=== PATIENT | female | born 2000 | race Caucasian/White ===

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

== ENCOUNTER 2021-01-10 13:27 | Emergency (ER) | payer BC, SELFPAY ==
[2021-01-10 13:28] VITALS: BP 131/71; PULSE 115; RESP 16; TEMP 36.9; O2SAT 97; BMI 22.8
--- NOTE | 2021-01-10 13:48 | ED.VIS.GI ---
HPI <Dr. Ernie Delgado MD - Last Filed: 01/30/21 00:45> HPI - GI History of Present Illness Chief Complaint: Abd Pain Narrative Narrative: Patient presenting for evaluation secondary to nausea and vomiting. Patient has a underlying history of cyclic vomiting syndrome. She was having significant issues with this about a month ago but currently is in the intensive outpatient program and is only really had one prior exacerbation to this since she started the intensive outpatient program. Patient states that today she was supposed to have around 4 to 5 hours of counseling followed by 7 hours of work and that caused her to feel anxious. She states that it proceeded to cause her significant nausea and vomiting as well as diffuse abdominal pain. Patient denies infectious signs or symptoms associated with this such as fever. Patient states that she had maybe one episode of emesis over the weekend but really has not been having any sort of other signs or symptoms associated with this. She tried taking Zofran at home did not really alleviate her symptoms. Patient apparently was on mirtazapine as well as sertraline, but stopped the mirtazapine about a week ago and the sertraline 2 weeks ago per the recommendations of her counselors and psychiatrists. Review of systems otherwise negative. PFSH <Dr. Ernie Delgado MD - Last Filed: 01/30/21 00:45> [facility] Medical History Generalized anxiety disorder Major depressive disorder, single episode, severe without psychosis Marijuana use Panic disorder Home Medications famotidine 20 mg PO DAILY 11/14/20 [History Last Taken Unknown] ondansetron 4 mg PO Q8H PRN PRN #10 tablet 12/05/20 [Rx Last Taken Unknown] lorazepam [Ativan] 0.5 mg PO BID PRN 14 Days #10 tab 12/14/20 [Rx Last Taken Unknown] promethazine [Phenergan] 25 mg [place] Q4H PRN PRN 12/14/20 [History Last Taken Unknown] ondansetron 4 mg PO Q6H PRN PRN #10 tab 01/10/21 [Rx Last Taken Unknown] Allergy/AdvReac Type Severity Reaction Status Date / Time No Known Allergies Allergy Verified 01/10/21 13:30 Social History Smoking Status: Never smoker ROS <Dr. Ernie Delgado MD - Last Filed: 01/30/21 00:45> ROS ED Constitutional Constitutional ED: Denies chills or fever(s) ENT ENT ED: Denies sore throat Cardiovascular Cardiovascular: Denies chest pain Respiratory/Chest Respiratory/Chest: Denies cough or dyspnea Gastrointestinal Gastrointestinal: Reports abdominal pain, nausea and vomiting; Denies constipation or diarrhea Genitourinary Genitourinary ED: Denies dysuria, hematuria or urinary frequency Musculoskeletal Musculoskeletal: Denies myalgias Integumentary Denies rash Neurologic Neurologic: Denies paresthesias or weakness Psychiatric Psychiatric: Reports anxiety; Denies depression Endocrine Endocrinology: Denies polyuria Hematologic/Lymphatic Hematologic/Lymphatic: Denies easy bleeding or easy bruising Allergic/Immunologic Allergic/Immunologic ED: Denies urticaria EXAM <Dr. Ernie Delgado MD - Last Filed: 01/30/21 00:45> Physical Exam Const Vital Signs: 01/10/21 13:28 01/10/21 15:55 Temperature 98.5 F Temperature Source Temporal Pulse Rate 115 H 74 Respiratory Rate 16 Blood Pressure 131/71 H Blood Pressure Mean 91 Pulse Ox 97 100 Oxygen Delivery Method Room Air Room Air Positive well nourished and well developed Constitutional Narrative: Tearful, vomiting, but otherwise not in physiologic distress General Appearance ED: well developed HEENT Reports moist mucous membranes normocephalic and atraumatic Eyes EOMs intact bilaterally General Eye ED: Negative for pale conjunctiva or scleral icterus Neck no lymphadenopathy and supple Resp normal respiratory effort and clear to auscultation bilaterally Cardio regular rhythm, no murmurs and peripheral pulses 2+ throughout Cardio Narrative: 2+ radial pulses bilaterally symmetric Rate: tachycardic GI non-distended and no masses GI Narrative: Diffuse nonlocalizing tenderness no guarding or rebound noted, no palpable masses Palpation: soft and tender; Negative for guarding, rigid or rebound tenderness present Back/Spine no CVA tenderness Extremity full ROM General Extremety ED: Negative for edema General Extremity: Negative for edema Neuro moves all extremities and no sensory deficits noted Sensorium / Orientation: alert, oriented to person, oriented to place and oriented to time Motor Exam: strength 5/5 throughout Psych Psych Narrative: Not suicidal homicidal or hallucinating, she does report feeling anxious Mood & Affect: tearful Skin Rashes: no rashes <Dr. Fernando Sanchez DO - Last Filed: 01/10/21 16:29> Physical Exam Const Vital Signs: 01/10/21 13:28 01/10/21 15:55 Temperature 98.5 F Temperature Source Temporal Pulse Rate 115 H 74 Respiratory Rate 16 Blood Pressure 131/71 H Blood Pressure Mean 91 Pulse Ox 97 100 Oxygen Delivery Method Room Air Room Air [facility] <Dr. Ernie Delgado MD - Last Filed: 01/30/21 00:45> [facility] Narrative Medical decision making narrative: Patient presented with an exacerbation of her cyclic vomiting syndrome. Patient was tearful, I did order the patient to have Ativan, Zofran, and IV Pepcid as well as a liter of saline in the emergency department. Patient does not seem to have a surgical abdomen I do not feel that imaging is indicated, the likewise this is only been going on today I do not feel that lab work is indicated in this patient. She is not suicidal or homicidal I do not think that she requires psychiatric evaluation. <Dr. Fernando Sanchez DO - Last Filed: 01/10/21 16:29> [facility] Narrative Medical decision making narrative: Patient was reassessed and is doing well. She will be discharged home. Discharge Plan Triage Chief Complaint: Abd Pain ED Provider: Ernie Delgado Dx/Rx/DC Orders Clinical Impression: Cyclical vomiting Instructions: ED Vomiting (Adult) Prescriptions: New ondansetron [ondansetron] 4 MG tablet 4 mg PO Q6H PRN PRN (Reason: Nausea) Qty: 10 RF: 0 No Action famotidine 20 MG tablet 20 mg PO DAILY RF: 0 ondansetron 4 MG tablet 4 mg PO Q8H PRN PRN (Reason: Nausea) Qty: 10 RF: 0 lorazepam [Ativan] 0.5 mg tablet 0.5 mg PO BID PRN (Reason: anxiety) 14 Days Qty: 10 RF: 0 promethazine [Phenergan] 25 mg Suppository 25 mg [place] Q4H PRN PRN (Reason: Vomiting) RF: 0 Primary Care Provider: Wilfred Nova Referrals: Wilfred Nova DO [Primary Care Provider] - 1 Week Disposition Disposition: Home, self care Discharge Date/Time: 01/10/21 16:33
[2021-01-10] MEDS: 0.9% Normal Saline 1,000 ML 999 ML IV (14:02)
[2021-01-10] MEDS: Ondansetron 4 MG/2 ML Vial IV (14:03)
[2021-01-10] MEDS: LORazepam 2 MG/ML Syringe 0.5 MG IV (14:07)
[2021-01-10] MEDS: Famotidine 200 MG/20 ML MDV 20 MG in 0.9% Normal Saline (Pres. free 8 ML 300 MG IV (14:26)
[2021-01-10 15:55] VITALS: PULSE 74; O2SAT 100
== END 2021-01-10 16:33 | disposition home or self-care (01) ==
PROVIDERS: Emergency Provider Emergency Medicine; PCP Student in an Organized Health Care Education/Training Program
DX: R11.15 Cyclical vomiting syndrome unrelated to migraine (principal)
CPT/HCPCS: 96374; 96375; 99283; J7030; A4216; J2405; J3490

== ENCOUNTER 2021-01-19 09:00 | Outpatient (RCR) | payer BC, SELFPAY ==
--- NOTE | 2021-01-19 09:04 | BH.SGPN.GN ---
Behaviors/Verbalizations/Mental Status: [] Pt eye contact good, casually dressed, motor activity appropriate, speech normal rate and tone, mood anxious, constricted affect, thoughts linear and intact, no evidence of delusions or hallucinations. Per patient symptom tracker patient denies current suicidal ideation, plan, or intent. Client Response/Progress/Benefit: []Pt responded well to session AEB pt listening attentively to others and openly sharing thoughts and feelings. Pt stated this morning was stressful because she doesn't have a car now so has to rely on others to get places. Pt reported her mom is still mad at her from a fight from yesterday which led her mom to leave this morning without telling pt she wasn't taking her to IOP or work. Pt stated initially she panicked but able to manage stressor by calling her supports and getting a ride to IOP. Pt identified mental health positive as not feeling sick or being in pain for a week. Additional positive as requesting time to take a vacation, which is something she typically wouldn't do. Progress noted with pt reporting decrease in anxiety about getting sick. Continues to struggle with independently coping on consistent basis. Pt to continue IOP to continue use of healthy coping, challenge distorted thoughts and prevent decompensation. Narrative Note: []
--- NOTE | 2021-01-19 10:17 | BH.SGPN.GN ---
Behaviors/Verbalizations/Mental Status: []Client alert and oriented, neatly dressed and groomed. Eye contact good. Motor activity appropriate. Speech within normal limits. Affect constricted, mood anxious. Thoughts linear, logical, no signs of hallucinations or delusions. Client Response/Progress/Benefit: []Pt engaged participant AEB pt providing input throughout session, listening attentively to peers and completing strengths exploration handout. Pt did struggle to identify strengths which included honesty, love, and a sense of humor. Pt stated these strengths will help client?s mental health recovery by helping pt communicate her emotions with others, expressing care and feeling kira, and giving client an outlet when feeling overwhelmed. Pt seemed to benefit from increased awareness of personal strengths and improved understanding how perspective can impact view of self. Pt is to continue IOP tx to promote use of healthy coping skills, reduce negative thinking patterns, and improve healthy boundaries. Narrative Note: []
--- NOTE | 2021-01-20 09:00 | BH.SGPN.GN ---
Behaviors/Verbalizations/Mental Status: [] Eye contact is good. Motor activity is appropriate. Appearance is casual. Speech is Appropriate. Mood is anxious. Affect is congruent. Thoughts are linear and logical. No evidence of psychosis. Reviewed daily check in sheet and pt did not report any suicidal ideations. Client Response/Progress/Benefit: [] Pt participated when prompted. Attentive. Emotion for today is tired and anxious. She also reports some somatic sensations. Daily symptoms tracker notes 2/5 for depression and anxiety. Shared that she has worked 8 days straight which has been slightly overwhelming. Stress and fatigue have increased anxiety which have increased somatic issues. She continues to utilize skills. Short check-in for patient today. Progress noted per pt reports. Benefited from group support, encouragment, and feedback. Will continue in IOP to maintain gains and decrease impact of mental health on medical. Narrative Note: []
--- NOTE | 2021-01-20 10:10 | BH.SGPN.GN ---
Behaviors/Verbalizations/Mental Status: []Client alert and oriented, casually dressed and groomed. Eye contact good. Motor activity appropriate. Speech within normal limits. Affect constricted, mood anxious. Thoughts linear, logical, no signs of hallucinations or delusions. Client Response/Progress/Benefit: []Client receptive to session, participating throughout. Provided input as the group brainstormed the positive and negative aspects of stress on physical and mental health. Group did well to identify the benefits of stress as well as the impact of distress on performance and mental health. Client identified stress jar includes: fighting with mom, friendships, discharging from IOP soon, not having a car, work, and toxic household. Client reports when her stress jar becomes overfilled her reaction is crying and shutting down. Pt seemed to benefit from increased awareness of current stressors and importance of dealing with stressors. Recommended to continue IOP tx to promote use of healthy coping skills, challenge distorted thoughts, and prevent decompensation. Narrative Note: []
--- NOTE | 2021-01-20 11:15 | BH.SGPN.GN ---
Behaviors/Verbalizations/Mental Status: []Client alert and oriented, casually dressed and groomed. Eye contact good. Motor activity appropriate. Speech within normal limits. Affect constricted, mood anxious. Thoughts linear, logical, no signs of hallucinations or delusions. Client Response/Progress/Benefit: []-Client engaged in session AEB listening attentively to others, taking notes, and participating in activity. Client remained attentive during discussion about the 4 A's of managing stress and discussed connecting with the various benefits of each. Client was interactive during group activity and helped the group problem-solve solutions to barriers. Client reports wanting to work on adapting to stress by challenging her perspective and setting realistic expectations. Client stated she wants to use these skills to manage her current stress with her car. Appeared to benefit from learning different techniques to better manage stress. Client will continue IOP to promote use of healthy coping skills, reduce distorted thought patterns, and increase healthy communication. Narrative Note: []
--- NOTE | 2021-01-23 09:00 | BH.SGPN.GN ---
Behaviors/Verbalizations/Mental Status: [] Pt eye contact good, casually dressed, motor activity appropriate, speech normal rate and tone, mood anxious, congruent affect, thoughts linear and intact, no evidence of delusions or hallucinations. Reviewed client?s symptom tracker, no signs of suicidal ideation, plan, or intent as of today. Client Response/Progress/Benefit: []Pt responded well to session AEB by pt listening attentively to peers and sharing thoughts and feelings. Pt reported this weekend she stayed with a friend to get some space from her family. Pt identified additional mental health positive as not getting sick in the mornings and no longer having the stomach pain when she wakes up. Pt shared this morning was rough because she felt off, felt like she couldn't breathe and started crying. Pt reported she used self-talk to help her get through the struggle. Pt seemed to benefit from expressing thoughts and feelings. Pt to continue IOP to continue use of healthy coping, challenge distorted thoughts and prevent decompensation. Narrative Note: []
--- NOTE | 2021-01-23 10:10 | BH.SGPN.GN ---
Behaviors/Verbalizations/Mental Status: [] Eye contact is good. Motor activity is appropriate. Appearance is casual. Speech is Appropriate. Mood is anxious. Affect is congruent. Thoughts are linear and logical. No evidence of psychosis. Client Response/Progress/Benefit: [] Pt was an active participant in group discussion and activity. Attentive during psychoeducation. Pt and peers provided examples of pitfalls or setbacks that people can fall into which impact mental health which included; triggers, fear, cognitive distortions, isolating, self-pity, avoidance, and pushing support away. During experiential activity pt along with peers identified several other pitfalls associated with mental health which included; poor communication, assumptions, lack of awareness, negative self-talk, anger, personalizing, and ruminating. Benefited from group by increasing awareness of pitfalls which can impact mental health. Pt will continue in IOP to prevent decompensation, maintain gains, and decrease impact of anxiety on medical issues. Narrative Note: []
--- NOTE | 2021-01-23 11:18 | BH.SGPN.GN ---
Behaviors/Verbalizations/Mental Status: []Client alert and oriented, neatly dressed and groomed. Eye contact good. Motor activity appropriate. Speech within normal limits. Affect constricted, mood euthymic. Thoughts linear, logical, no signs of hallucinations or delusions Client Response/Progress/Benefit: []Client receptive of session, engaged throughout AEB client actively listening and contributing to discussion, as well as taking notes. Client completed worksheet identifying personal pitfalls impacting mental health progress. Client identified the following pitfalls: lacking boundaries, catastrophizing, and overgeneralizing. Client reports she recently gained insight that she overgeneralizes and how much this impacts her. Attentive during group brainstorm of strategies to overcome pitfalls. Client will work on overcoming overgeneralizing by practicing catching negative thoughts and reframing them. Benefited from identifying personal pitfalls and strategies to overcome these pitfalls. Will continue IOP tx to increase use of healthy coping skills, reduce negative thinking, and improve boundary setting. Narrative Note: []
--- NOTE | 2021-01-27 09:05 | BH.SGPN.GN ---
Behaviors/Verbalizations/Mental Status: [] Eye contact is good. Motor activity is appropriate. Appearance is casual. Speech is Appropriate. Mood is depressed. Affect is flat. Thoughts are linear and logical. No evidence of psychosis. Reviewed daily check in sheet and no reports of suicidal ideations or intent. Client Response/Progress/Benefit: [] Pt participated at times during the group discussion. Attentive. Emotion for today is tired. States I'm doing well. Briefly shared conflict with her support which has been long-standing issue. States we have both decided to move forward even though there has been no resolution. Admits to being anxious however continues to utilize thought challenging and other skills learned in IOP. I've come a long way from my first day in IOP. Notes that it has been over 3 weeks since she last had a cyclic vomiting episode. Progress noted per pt report. Benefited from group support and encouragement. Will continue in IOP to maintain gains. Narrative Note: []
--- NOTE | 2021-01-27 10:10 | BH.SGPN.GN ---
Behaviors/Verbalizations/Mental Status: []Client alert and oriented, casually dressed and groomed. Eye contact fair. Motor activity appropriate. Speech within normal limits. Affect congruent, mood anxious. Thoughts linear, logical, no signs of hallucinations or delusions. Client Response/Progress/Benefit: []Client passive participant AEB client providing limited contributions during group discussion, however appeared to listen attentively to peers. Client connected with the topic of relationships. Client helped group discuss the benefits of relationships as well as the different types of relationships one can have. Group identified the risk factors for unhealthy relationships which included: poor self-esteem, trauma, lonely, and lying. Listened to group develop a list of the consequences that unhealthy relationships have on mental health. Appeared to benefit from increasing awareness of the impact unhealthy relationships can have on mental health. Pt to continue IOP to decrease anxiety, decrease avoidance behaviors and prevent decompensation. Narrative Note: []
--- NOTE | 2021-01-27 11:10 | BH.SGPN.GN ---
Behaviors/Verbalizations/Mental Status: []Client alert and oriented, casually dressed and groomed. Eye contact good. Motor activity appropriate. Speech within normal limits. Affect congruent, mood euthymic and anxious. Thoughts linear, logical, no signs of hallucinations or delusions. Client Response/Progress/Benefit: []Client responded well to session, engaged and taking notes. Attentive during discussion of what traits of healthy relationships. Client reflected on one relationship in her life and weighed the positives and negatives of that relationship to see how balanced it was. Client shared she would like to improve her relationship with her mother by communicating her needs when she is not in crisis. Client stated this has created conflict in the past and client wants to prevent this in the future. Appeared to benefit from brainstorming strategies to build healthier relationships. Will continue IOP tx to promote mood stability and reinforce healthy coping skills. Narrative Note: []
--- NOTE | 2021-01-30 10:10 | BH.SGPN.GN ---
Behaviors/Verbalizations/Mental Status: [] Eye contact is good. Motor activity is appropriate. Appearance is casual. Speech is Appropriate. Mood is euthymic. Affect is full. Thoughts are linear and logical. No evidence of psychosis. Client Response/Progress/Benefit: [] Pt was an active participant in group discussion and activity. Attentive during psychoeducation on internal vs external coping skills. Pt along with peers provided their thoughts and insights on the definition of coping skills. Pt along with peers worked together to identify unhealthy coping skills which included; over-eating, smoking, using substances, self-harm, lashing out, isolation, avoidance, sleeping, shopping, reckless behaviors, and denial. Interactive discussion amongst peers on the reasons that people utilize unhealthy copings skills (easy, comfortable, habitual, temporary relief). Benefited from increased awareness of unhealthy coping skills, internal coping skills, and external coping skills. Will continue in IOP to maintain gains and prevent decompensation. Narrative Note: []
--- NOTE | 2021-02-01 09:05 | BH.SGPN.GN ---
Behaviors/Verbalizations/Mental Status: [] Eye contact is good. Motor activity is appropriate. Appearance is casual. Speech is Appropriate. Mood is anxious. Affect is congruent. Thoughts are linear and logical. No evidence of psychosis. Reviewed daily check in sheet and no reports of suicidal ideations or intent. Client Response/Progress/Benefit: [] Pt participated at times during group discussion. Attentive. Daily symptom tracker notes 0/5 for anxiety. Emotion for today is Nervous but hopeful. Sahred that tomorrow is going to be her last day in IOP and she is slightly fearful as IOP has been very beneficial. Reports that coming here as been almost habitual and she is going to miss the support. She has an aftercare plan to continue with individual counseling. She shared that on Saturday she did notice anxiety and stomach in knots which could have led to vomiting episode in the past however she was able to manage her thoughts and minimize her anxiety. Progress noted per pt report. Benefited from group support, encouragement, and feedback. Plan is to discharge pt from [facility] tomorrow. Narrative Note: []
--- NOTE | 2021-02-01 10:15 | BH.SGPN.GN ---
Behaviors/Verbalizations/Mental Status: [] Eye contact is good. Motor activity is appropriate. Appearance is casual. Speech is Appropriate. Mood is anxious, euthymic. Affect is congruent. Thoughts are linear and logical. No evidence of psychosis. Client Response/Progress/Benefit: [] Pt was an active participant in group discussion reviewing internal and external obstacles. Attentive during psychoeducation. Participated in the reflection activity in which clients ankit pictures depicting their current and desired reality and shared with the group. Current reality involved her feeling as though she is climbing towards her goals but continues to be faced with setbacks along the way. Shared she is trying to ?hold on? and continue to encourage herself to keep working towards her goals, even when feeling discouraged. Indicated that her desired reality involved being happier with herself, having more consistent healthy boundaries, and feeling more capable in her ability to consistently accomplish goals. Identified that skills that would help move her from current to desired realities would be challenging herself to communicate more with her supports in healthy ways and pause before responding. Benefited from group by increasing current awareness and expectations for progress. Will continue in IOP to maintain stability prior to IOP discharge. Narrative Note: []
--- NOTE | 2021-02-01 11:15 | BH.SGPN.GN ---
Behaviors/Verbalizations/Mental Status: []Client alert and oriented, casually dressed and groomed. Eye contact good. Motor activity appropriate. Speech within normal limits. Affect congruent. Mood euthymic. Thoughts linear, logical, no signs of hallucinations or delusions. Client Response/Progress/Benefit: []Client engaged during activity and provided ideas on how to cope with internal barriers that keep clients stuck from moving towards goals. Client able to identify barriers to desired reality. Client reported she wants to work on overcoming barrier of toxic work environment. Client reported she will start to overcome this barrier by focusing on what's in her control, setting boundaries, and not reacting immediately to others comments/behaviors. Benefited from group by identifying obstacles and solutions to desired reality. Will continue IOP tx to prevent decompensation, maintain gains and continue use of healthy coping.
--- NOTE | 2021-02-01 11:52 | PCM.BH.PN_ITS ---
Progress Note Progress Note: And history of Present Illness/Interim History: [] Patient is a 20-year-old single female who is seen in follow-up at the [facility] behavioral health IOP program. I last saw the patient 3 weeks ago. The patient has done well in the IOP program and feels she has learned valuable skills to help manage her mental health issues. Patient states that she is vastly better now. She has not vomited for over 3 weeks now. She has minimal anxiety and even when she does get a little anxious she does not wake up with any stomach pain or nausea anymore. No change in her weight. She has not used any marijuana whatsoever. 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 She denies any fatigue. She denies any passive thoughts, suicidal or homicidal ideation, hallucinations or delusions. Current Psychiatric Medications: [] Remeron 15 mg p.o. nightly; has not used any Zofran or Ativan since about 2-1/2 weeks ago. Mental Status Examination: [] Patient is a 20-year-old female who is seen wearing a mask due to the pandemic and appears normal for stated age and casually dressed and groomed with good hygiene. Eye contact is good and speech is normal rate and rhythm and fluent with no pressure. There is no psychomotor agitation or retardation. Mood is euthymic. Affect is full and normal. Thought process is goal-directed and organized. Thought content: There is no evidence of passive thoughts of , suicidal or homicidal ideation, hallucinations or delusions. Judgment is intact. Insight is good. Impulsivity is low. Diagnoses: [] 1. Generalized anxiety disorder 2. Major depressive disorder, single episode, moderate 3. Panic disorder 4. Marijuana use disorder (sober for over 5 weeks now) 5. History of cyclical vomiting syndrome Plan: [] The patient will be discharged from the IOP program tomorrow as she has performed well and has participated well in the program. No medication changes were made today. The patient was encouraged to stay on her Remeron for at least a total of 6 months. She will follow up with her outpatient psychiatric and medical providers. She felt safe during the interview and if it anytime she does not feel safe she will let us know or go to the emergency room. The risks, options, possible side effects and complications of the medications were again discussed with the patient and she understands accepts these.
--- NOTE | 2021-02-02 09:00 | BH.SGPN.GN ---
Behaviors/Verbalizations/Mental Status: [] Eye contact is good. Motor activity is appropriate. Appearance is neat. Speech is Appropriate. Mood is anxious. Affect is congruent. Thoughts are linear and logical. No evidence of psychosis. Reviewed daily check in sheet and no reports of suicidal ideations or intent. Client Response/Progress/Benefit: [] Pt participated when prompted. Attentive. Checked in and then met with her individual counselor. Emotion for today is optimistic. Shared that today is her last day in IOP and while she is sad and anxious she states I'm ready to be done. Acknowledges that they are going to be ups and downs after discharge however she is confident that she can use the skills learned to better manage any overwhelming situations. Shared that prior to IOP she was crying everyday and her anxiety was exacerbating her cyclic vomiting to the point where she was vomiting daily. Had frequent ER visits and her quality of life was poor. She has not been to the ER in 4 weeks and while her anxiety at times caused stomach issues it has not reached the point where she had been vomiting for 4 weeks. More energetic and hopeful. Progress noted in IOP. Will be discharged today. Narrative Note: []
--- NOTE | 2021-02-02 10:15 | BH.SGPN.GN ---
Behaviors/Verbalizations/Mental Status: []Client alert and oriented, casual dress, hygiene tended to. Eye contact fair. Motor activity appropriate. Speech within normal limits. Affect congruent. Mood anxious. Thoughts linear, logical, no signs of hallucinations or delusions. Client Response/Progress/Benefit: []Pt responded well to session AEB engaging in group discussion and listened attentively to others. Pt assisted group with identifying benefits of emotional health which included: improved relationships, increased patience, improved regulation, and improved communication. Pt engaged in discussion about barriers of improving emotional wellness. Pt stated taking time to notice the small things can increase ability to see positives in life which could improve emotional wellness. Seemed to benefit from increased awareness of importance of improving emotional wellness. Pt to continue IOP to continue use of healthy coping, challenge distorted thoughts and prevent decompensation. Narrative Note: []
--- NOTE | 2021-02-02 11:16 | BH.SGPN.GN ---
Behaviors/Verbalizations/Mental Status: []Client alert and oriented, casually dressed and groomed. Eye contact good. Motor activity appropriate. Speech within normal limits. Affect congruent, mood anxious and euthymic. Thoughts linear, logical, no signs of hallucinations or delusions. Client Response/Progress/Benefit: []Client responded well to session, engaged and participated throughout discussion. Client participated in the discussion reviewing the ?10 Mares TIPS for Emotional Wellness?. Client worked within a smaller group to identify how each tip could aid in supporting personal emotional wellness and come up with ways to practice each of the tips reviewed. Client shared connecting with the emotional wellness trait of ?choose to be a good friend to yourself? and discussed she has been working on improving upon this in her own life. Client would like to work the emotion wellness trait of ? Learn to accept the changes in your life.? in order to continue to improve her ability to manage anxiety and further improve mood stability. Expressed she can practice doing so by listing positive associated with changes in her life?. Client to discharge from [facility] tx on this date and is encouraged to continue to follow-up with individual outpatient counseling services. Narrative Note: []
--- NOTE | 2021-02-02 13:42 | BH.DS ---
Discharge Summary - Demographics Date of Admission:: 12/13/20 Discharge Date: 02/02/21 Presenting Problems at Admission:: Patient is a 20-year-old single female who was referred to behavioral health IOP program by the ED for anxiety, depression, and passive thoughts of associated with severe cyclical vomiting syndrome. The patient has a history of marijuana use disorder and has had cyclical vomiting for about 1 year prior to arrival. The patient has been to the emergency room 9 times since August 2020 for vomiting of a cyclical nature which is made worse by anxiety. Patient states that she has vomiting almost every morning and endorses occasional hopelessness due to this cyclical vomiting. Endorses a depressed mood, decreased appetite, anhedonia, low energy, interpersonal relationship issues, an passive thoughts of . Client additionally reports increased anxiety about her ability to manage her physical health issues and reports ruminating thoughts, constant fear of being sick, avoidance, panic attacks which precipitated her vomiting that involve increasing heart rate, leg shaking, and feeling of impending doom. Client current sx are impacting her social, occupational, and familial areas of life. Discharge Diagnoses:: Generalized anxiety disorder, Major depressive disorder, single episode, moderate, Panic disorder, Marijuana use disorder (sober for over 5 weeks now), History of cyclical vomiting syndrome Reason for Discharge:: Client has made significant progress AEB reduced DSM-5 scores, successfully reduced ER visits, and accomplishment of tx goals and no longer meets criteria for IOP level of care. - Treatment Progress During Treatment & Response: Client responded well to treatment and successfully accomplished her treatment goals. This is evidenced by an overall reduction in DSM-5 scores, only experiencing one cyclical vomiting episode since admission, and self-report of improved functioning. When client was at group, she was an active member and receptive to learning new skills. Client did well to increase active engagement and provide more input in group setting as she continued to make progress in tx. Client reported using healthy coping skills to better manage physical and cognitive symptoms of anxiety and depression. Client skills used include deep breathing, thought challenging, positive affirmations, and mindfulness specifically via regular walks. Client additionally has been working to improve emotion regulation skills and communication with supports. She reports reduced conflict, improved self-advocacy, and better boundaries as a result. Continues to struggle with interpersonal relationships at times but has make significant gains in these areas. Client was engaged in her individual sessions and was mostly consistent with homework and skill utilization outside of group. Client also completed a family session with her mother to help advocate for her mental health needs/concerns. Client self-reported progress in being more capable of better managing her anxiety and challenge catastrophizing thoughts, improved confidence, reduced reassurance seeking, and increased self-awareness. Client?s DSM-5 scores decreased by an overall 80%. Depression decreased by 67%, anxiety decreased by 86%, and irritability decreased by 50%. Issues Still to be Addressed:: Client can benefit from ongoing counseling to reinforce healthy coping skills, continue to improve self-esteem and self-care, maintain healthy boundary setting, and challenge negative thinking that reinforces anxiety safety behaviors. Client will also benefit from continuing to practice using positive self-talk statements, small goal setting skills, improving self-love, and continuing to work on emotion regulation and conflict resolution. Client's main goals moving forward are to continue to reduce anxiety and figuring out a more concrete plan for her future. Discharge Recommendations/Instructions:: Client is encouraged to continue outpatient counseling at [facility], however at this time has declined aftercare services. Client continues to decline wanting any outpatient psychiatry and will follow-up with PCP for ongoing medication management. Discharge Handout: Complete Discharge Handout with client on aftercare options and continuity of care.
--- NOTE | 2021-02-02 14:50 | BH.MDN ---
Multi-Disciplinary Note - Note 30-min Individual Time Started:: 09:39 Date: 02/02/21 Purpose of session/treatment goals addressed:: The purpose of this session was to review client's progress in tx thus far, as well as review strategies that will promote mood stability and maintain gains made in IOP. Another goal was to discuss discharge recommendations and process any current stressors. Eye Contact:: Good Motor Activity:: Appropriate Appearance:: Neat, Casual Speech:: Appropriate Mood:: Euthymic, Anxious Affect:: Full Thoughts:: Linear, Logical, No evidence of hallucinations/delusions noted Staff Interventions:: Therapist used open-ended questions to explore client's thoughts on personal progress. Therapist reviewed supports and coping skills with client to promote gains and prevent setbacks. Therapist discussed aftercare plan with client and used strengths-perspective to empower client on the goals client has accomplished. Therapist discussed the benefits of ongoing maintenance, encouraged ongoing mental health treatment, and use of daily coping skills. Client Response:: Client responded well to session, open to meeting with therapist. Client reports feeling she has made much progress since beginning IOP tx and feels more capable of managing her emotions and better coping with anxiety. Discussed areas in which client has seen personal progress and areas she would benefit from continuing to work on post IOP discharge. Identified progress in improved communication and relationships with supports via advocating for her mental health needs, establishing boundaries, and using healthier conflict resolution approaches. Client continues to struggle with emotion regulation within her interpersonal relationships, specifically her relationship with her mother, however, has made significant strides in this area. Provided an example of recent situation in which she and her mother were able to take time to regulate their emotions and come back when calmer to process/discuss a disagreement. Shared this is significant progress. Additionally, discussed progress in improved communication regarding her mental health needs and stressors with her friends. Noted improved support and ability to establish healthier boundaries as a result. Identified most significant progress in overall ability to manage physical symptoms of anxiety and expressed great pride in her ability to address anxiety before getting to point of physical illness. Reflected on successfully not having to go to the ER in almost a month as a result. Client reports feeling more hopeful and optimistic about life overall and ability to maintain gains. Shared most benefiting from learning to accept and better manage anxiety through ?retraining my brain?. Client reviewed healthy coping skills which will help maintain gains and prevent setbacks. Client's coping skills included: thought challenging, positive self-talk, grounding, communication with supports, boundary setting, and mindfulness. Client reports she still wants to work on further reducing anxiety moving forward. Client and therapist discussed aftercare options and importance of continued tx, however client declines wanting to seek individual outpatient counseling services at this time. Risks/Concerns:: Client denies any suicidal ideations, plan, or intent as of 02/02/21. Hopeful and future oriented. Progress Toward Goals/Plan:: Client has responded well to treatment and has made great progress while in [facility]. Client self-reports overall improved mood, increased confidence, more positive thinking, increased ability to cope with stressors, and more consistent use of anxiety management skills. Client reports increased ability to identify and challenge negative thinking, ask for help, and realistically address stressors rather than jumping to worst case. Client still endorses some symptoms of anxiety, depression, and has negative thinking, but it is of reduced intensity. Will discharge from [facility] on this date, 02/03/20. Time Stopped:: 10:05
== END 2021-02-02 13:14 | disposition home or self-care (01) ==
LOC: BHIOP 09:00
PROVIDERS: PCP Student in an Organized Health Care Education/Training Program; Referring Provider Psychiatry & Neurology Psychiatry; Visit Provider Psychiatry & Neurology Psychiatry
DX: F41.1 Generalized anxiety disorder (principal); F32.1 Major depressive disorder, single episode, moderate; F41.0 Panic disorder [episodic paroxysmal anxiety]; F12.90 Cannabis use, unspecified, uncomplicated
CPT/HCPCS: S9480; 90832; 90834; 90853

== ENCOUNTER 2021-06-25 08:19 | Emergency (ER) | payer BC, SELFPAY ==
[2021-06-25 08:20] VITALS: BP 131/92; PULSE 97; RESP 24; TEMP 36.1; O2SAT 98; BMI 21.6
--- NOTE | 2021-06-25 08:31 | EDS_ITS ---
HPI History of Present Illness Chief Complaint: Abd Pain Informant: patient Narrative Narrative: 20-year-old female with a history of cyclic vomiting syndrome presents the emergency room stating that at 4:00 this morning she began to vomit and is now having a panic attack. She states she has been to several shot examiner and they have told her that her vomiting is due to anxiety. Patient denies any diarrhea or fevers. She denies any bad food exposure or recent antibiotic use. She tried behavior modification at home was unable to break her panic attack. [facility] Medical History Generalized anxiety disorder Major depressive disorder, single episode, severe without psychosis Marijuana use Panic disorder Home Medications famotidine 20 mg PO DAILY 11/14/20 [History Last Taken Unknown] ondansetron 4 mg PO Q8H PRN PRN #10 tablet 12/05/20 [Rx Last Taken Unknown] lorazepam [Ativan] 0.5 mg PO BID PRN 14 Days #10 tab 12/14/20 [Rx Last Taken Unknown] promethazine [Phenergan] 25 mg NH Q4H PRN PRN 12/14/20 [History Last Taken Unknown] ondansetron 4 mg PO Q6H PRN PRN #10 tab 01/10/21 [Rx Last Taken Unknown] mirtazapine [Remeron] 15 mg PO QHS 30 Days #30 tab 02/01/21 [Rx Last Taken Unknown] Allergy/AdvReac Type Severity Reaction Status Date / Time No Known Allergies Allergy Verified 06/25/21 08:20 Social History (Updated 06/25/21 @ 08:[address] Fernando Sanchez DO) Smoking Status: Never smoker substance use type: marijuana ROS ROS ED Constitutional Constitutional ED: Denies chills or weight loss Eyes Eyes: Denies change in vision or diplopia ENT ENT ED: Denies ear pain, rhinorrhea or sore throat Cardiovascular Cardiovascular: Denies chest pain, orthopnea, palpitations or racing heartbeat Respiratory/Chest Respiratory/Chest: Denies cough, dyspnea or orthopnea Gastrointestinal Gastrointestinal: Reports nausea and vomiting; Denies abdominal pain or diarrhea Genitourinary Genitourinary ED: Denies dysuria, hematuria or urinary frequency Musculoskeletal Musculoskeletal: Denies arthralgias or myalgias Integumentary Denies abscess or rash Neurologic Neurologic: Denies headache(s) or weakness Psychiatric Psychiatric: Reports anxiety; Denies depression, suicidal ideation or suicidal thoughts Endocrine Endocrinology: Denies polydipsia, polyphagia or polyuria Allergic/Immunologic Allergic/Immunologic ED: Denies mouth swelling, tongue swelling or urticaria EXAM Physical Exam Const Vital Signs: 06/25/21 08:20 Temperature 96.9 F L Temperature Source Temporal Pulse Rate 97 Respiratory Rate 24 H Blood Pressure 131/92 H Blood Pressure Mean 105 Pulse Ox 98 Oxygen Delivery Method Room Air Positive well nourished and well developed General Appearance ED: well developed HEENT Reports normocephalic, head/scalp atraumatic, TM's clear and moist mucous membranes Negative for trauma Tympanic Membrane ED: Yes TM's clear Eyes PERRL and EOMs intact bilaterally Neck no lymphadenopathy, supple and no JVD Resp normal respiratory effort and clear to auscultation bilaterally Cardio regular rate, regular rhythm and no murmurs GI normal to inspection, nondistended, normoactive bowel sounds and non-tender Palpation: soft Back/Spine no CVA tenderness and normal ROM Extremity normal to inspection General Extremety ED: Negative for edema General Extremity: Negative for edema Neuro oriented x3 and CN's II-XII intact bilaterally Sensorium / Orientation: alert Motor Exam: strength 5/5 throughout Psych Mood & Affect: depressed, anxious and tearful Skin no rashes or lesions noted and no wounds MDM MDM MDM Narrative Medical decision making narrative: The patient received a liter of IV fluids Ativan and Zofran. Repeat examination the patient states she is feeling better and is able to go home. Discharge Plan Triage Chief Complaint: Abd Pain Other Complaint: Nausea/Vomiting ED Provider: Fernando Sanchez Dx/Rx/DC Orders Clinical Impression: Vomiting, Panic attack Instructions: ED Panic Attack Prescriptions: No Action famotidine 20 MG tablet 20 mg PO DAILY RF: 0 ondansetron 4 MG tablet 4 mg PO Q8H PRN PRN (Reason: Nausea) Qty: 10 RF: 0 lorazepam [Ativan] 0.5 mg tablet 0.5 mg PO BID PRN (Reason: anxiety) 14 Days Qty: 10 RF: 0 promethazine [Phenergan] 25 mg Suppository 25 mg NH Q4H PRN PRN (Reason: Vomiting) RF: 0 ondansetron [ondansetron] 4 MG tablet 4 mg PO Q6H PRN PRN (Reason: Nausea) Qty: 10 RF: 0 mirtazapine [Remeron] 15 mg tablet 15 mg PO QHS 30 Days Qty: 30 RF: 0 Primary Care Provider: Wilfred Nova Referrals: Wilfred Nova DO [Primary Care Provider] - 3-5 Days if not improving Disposition Disposition: Home, Self Care
[2021-06-25] MEDS: LORazepam 2 MG/ML Syringe 1 MG IV (08:49)
[2021-06-25] MEDS: 0.9% Normal Saline 1,000 ML 1000 ML IV (08:50)
[2021-06-25] MEDS: Ondansetron 4 MG/2 ML Vial IV (08:50)
[2021-06-25 10:00] VITALS: BP 117/64; PULSE 86; RESP 16; O2SAT 100
== END 2021-06-25 10:01 | disposition home or self-care (01) ==
PROVIDERS: Emergency Provider Emergency Medicine; PCP Student in an Organized Health Care Education/Training Program
DX: R11.2 Nausea with vomiting, unspecified (principal); F41.0 Panic disorder [episodic paroxysmal anxiety]; F12.10 Cannabis abuse, uncomplicated
CPT/HCPCS: 96374; 96375; 99284; J7030; A4216; J2405

== ENCOUNTER 2021-08-29 05:34 | Emergency (ER) | payer BC, SELFPAY ==
[2021-08-29 05:36] VITALS: BP 107/70; PULSE 97; RESP 18; TEMP 36.6; O2SAT 100; BMI 22.1
--- NOTE | 2021-08-29 05:44 | EDS_ITS ---
HPI History of Present Illness Chief Complaint: Complaint Informant: patient Narrative Narrative: 21-year-old female presenting to the emergency department stating she may have a UTI. Patient notes that she has had suprapubic pressure dysuria and urinary frequency for about a week. It became worse during the night. She denies any fever back pain vomiting or diarrhea. She tried some cranberry pills earlier in the week without relief. PFSH PFSH Medical History Generalized anxiety disorder Major depressive disorder, single episode, severe without psychosis Marijuana use Panic disorder Medical History no medical history Home Medications nitrofurantoin monohyd/m-cryst [Macrobid] 100 mg PO Q12H #9 cap 08/29/21 [Rx Last Taken Unknown] phenazopyridine [Pyridium] 200 mg PO TID PRN #6 tab 08/29/21 [Rx Last Taken Unknown] Allergy/AdvReac Type Severity Reaction Status Date / Time No Known Allergies Allergy Verified 08/29/21 05:34 Surgical History no surgical history Social History Smoking Status: Current every day smoker tobacco type: e-cigarettes substance use type: marijuana ROS ROS ED Constitutional Constitutional ED: Denies chills, fever(s) or weight loss Eyes Eyes: Denies change in vision or diplopia ENT ENT ED: Denies ear pain, rhinorrhea or sore throat Cardiovascular Cardiovascular: Denies chest pain, orthopnea, palpitations or racing heartbeat Respiratory/Chest Respiratory/Chest: Denies cough, dyspnea or orthopnea Gastrointestinal Gastrointestinal: Reports abdominal pain; Denies diarrhea, nausea or vomiting Genitourinary Genitourinary ED: Reports dysuria and urinary frequency; Denies hematuria Musculoskeletal Musculoskeletal: Denies arthralgias or myalgias Integumentary Denies abscess or rash Neurologic Neurologic: Denies headache(s) or weakness Psychiatric Psychiatric: Denies anxiety, depression, suicidal ideation or suicidal thoughts Endocrine Endocrinology: Denies polydipsia, polyphagia or polyuria Allergic/Immunologic Allergic/Immunologic ED: Denies mouth swelling, tongue swelling or urticaria EXAM Physical Exam Const Vital Signs: 08/29/21 05:36 Temperature 98 F Temperature Source Temporal Pulse Rate 97 Respiratory Rate 18 Blood Pressure 107/70 Blood Pressure Mean 82 Pulse Ox 100 Oxygen Delivery Method Room Air Positive well nourished and well developed General Appearance ED: well developed HEENT Reports normocephalic, head/scalp atraumatic, TM's clear and moist mucous membranes Negative for trauma Tympanic Membrane ED: Yes TM's clear Eyes PERRL and EOMs intact bilaterally Neck no lymphadenopathy, supple and no JVD Resp normal respiratory effort and clear to auscultation bilaterally Cardio regular rate, regular rhythm and no murmurs GI normal to inspection, nondistended, normoactive bowel sounds and non-tender Palpation: soft Back/Spine no CVA tenderness and normal ROM Extremity normal to inspection General Extremety ED: Negative for edema General Extremity: Negative for edema Neuro oriented x3 and CN's II-XII intact bilaterally Sensorium / Orientation: alert Motor Exam: strength 5/5 throughout Psych mental status grossly normal Mood & Affect: tearful; Negative for depressed Skin no rashes or lesions noted and no wounds MDM MDM MDM Narrative Medical decision making narrative: Urinalysis shows greater than 100 white blood cells 2+ bacteria 5-10 squamous cells no red blood cells. This will be sent for culture. As the patient is symptomatic with the above findings even though there is some contamination we will place her on Azo and Macrobid. Return if worsening or concerns Lab Data Attestation: I reviewed the patient's lab results. Labs: Laboratory Results - last 24 hr 08/29/21 05:53 Urine Color Yellow Urine Clarity Turbid Urine pH 6.0 Ur Specific [place] 1.025 Urine Protein 500 H Urine Glucose (UA) Normal Urine Ketones Negative Urine Occult Blood 250 H Urine Nitrite Negative Urine Bilirubin Negative Urine Urobilinogen Normal Ur Leukocyte Esterase 500 H Urine RBC 0 SEEN Urine WBC >100 SEEN Ur Squamous Epith Cells 5-10 SEEN Ur Renal Epithelial Cell 5-10 SEEN Urine Bacteria 2+ Urine Mucus 0 SEEN Urine Test Negative Discharge Plan Triage Chief Complaint: Complaint ED Provider: Fernando Sanchez Dx/Rx/DC Orders Clinical Impression: Acute cystitis Instructions: ED CYSTITIS Female Adult Prescriptions: New phenazopyridine [Pyridium] 200 mg tablet 200 mg PO TID PRN (Reason: pain) Qty: 6 RF: 0 nitrofurantoin monohyd/m-cryst [Macrobid] 100 mg capsule 100 mg PO Q12H Qty: 9 RF: 0 Primary Care Provider: Wilfred Nova Referrals: Wilfred Nova DO [Primary Care Provider] - As Needed Disposition Disposition: Home, Self Care
[2021-08-29 05:59] LABS: Mucous, Urine 0 SEEN /hpf (<or=2+); Red Blood Cells-Urine 0 SEEN /hpf (0-5)
[2021-08-29 06:05] LABS: Color, Urine Yellow (Yellow); Glucose, Dipstick Normal (Normal); Ketone-Dipstick Negative (Negative); Leukocyte Esterase-Dipstick 500 /ul (Negative); Nitrite-Dipstick Negative (Negative); Occult Blood-Urine 250 /ul (Negative); Protein-Dipstick 500 mg/dl (Negative); Specific Gravity, Urine 1.025 (1.002-1.030); Urine Bilirubin Dipstick Negative (Negative); Urine Clarity Turbid (Clear); Urine Urobilinogen Normal (Normal)
[2021-08-29 06:13] LABS: Internal QC Validated? YES +Cl - CLEAR BKGD; Pregnancy, Urine Negative Negative
[2021-08-29 06:22] LABS: Bacteria 2+ /hpf (None Seen); White Blood Cells >100 SEEN /hpf (0-5)
[2021-08-29 06:23] LABS: Renal Epithelial Cells 5-10 SEEN /hpf (0-5); Squamous Epithelial Cells - UA 5-10 SEEN /hpf (5-10)
[2021-08-29] MEDS: Nitrofurantoin Macrocrystals 100 MG Capsule PO (06:41)
[2021-08-29] MEDS: Phenazopyridine 95 MG Tablet 190 MG PO (06:41)
== END 2021-08-29 06:42 | disposition home or self-care (01) ==
PROVIDERS: Emergency Provider Emergency Medicine; PCP Student in an Organized Health Care Education/Training Program; Visit Provider Emergency Medicine
DX: N30.00 Acute cystitis without hematuria (principal); F17.210 Nicotine dependence, cigarettes, uncomplicated; F12.10 Cannabis abuse, uncomplicated
CPT/HCPCS: 81001; 81025; 99283

== ENCOUNTER 2021-09-16 11:15 | Emergency (ER) | payer BC, SELFPAY ==
--- NOTE | 2021-09-16 17:06 | EDS_ITS ---
DATE OF SERVICE 09/16/21 CHIEF COMPLAINT: Nausea and vomiting. HISTORY OF PRESENT ILLNESS: This patient is a 21-year-old female who presents with nausea and vomiting that began today. The patient states that it began when she woke up. She states that she has been vomiting her stomach contents. She states that she has not been able to eat anything today. She states that she has aching and cramping throughout her abdomen. The patient states that nothing makes it better and nothing makes it worse. She denies any hematemesis or coffee-ground emesis. The patient denies any diarrhea, melena or hematochezia. She admits to some subjective chills, but denies any fever PAST MEDICAL HISTORY: Anxiety. PAST SURGICAL HISTORY: Denies. CURRENT MEDICATIONS: None. ALLERGIES: None. SOCIAL HISTORY: The patient denies any smoking, alcohol or drug use. REVIEW OF SYSTEMS: GENERAL: The patient admits to some subjective chills, but denies any fevers. EYES: The patient denies any blurry vision or diplopia. ENT: The patient denies any sore throat or rhinorrhea. CARDIOVASCULAR: The patient denies any chest pain or palpitations. RESPIRATORY: The patient denies any shortness of breath or cough. GI: The patient admits to nausea, vomiting, abdominal pain as stated in the chief complaint. : The patient denies any dysuria or hematuria. MUSCULOSKELETAL: The patient denies any neck pain or back pain. SKIN: The patient denies any rashes or boils. NEUROLOGIC: The patient denies any headaches or weakness. ALLERGIES: The patient denies any hives or swelling. PHYSICAL EXAMINATION: GENERAL: The patient is in no acute distress. VITAL SIGNS: Stable, afebrile. HEENT: Oral mucosa is pink and moist. NECK: Supple. Trachea is midline. There is no JVD. LUNGS: Clear and equal bilaterally. HEART: Regular rate and rhythm. ABDOMEN: Soft. Bowel sounds are normal. There is no distention noted. There is mild diffuse tenderness. There is no rebound or guarding noted. NEUROLOGIC: Cranial nerves II-XII are intact. There are no focal motor or sensory deficits noted. DIAGNOSTIC DATA: CBC was obtained and showed a slight leukocytosis of 12.5. The remainder was within normal limits. Comprehensive metabolic profile was obtained and was essentially within normal limits. Serum HCG was negative. COVID-19 rapid antigen was obtained and was negative. EMERGENCY DEPARTMENT COURSE AND MEDICAL DECISION MAKING: The patient was given a dose of Zofran here. The patient was given IV fluids. The patient was given a repeat dose of Zofran and morphine. The patient was feeling better on reevaluation. The patient was advised of her findings. IMPRESSION: Nausea and vomiting. DISPOSITION/PLAN: The patient was instructed to start with a liquid diet and advance to a bland diet and to a regular diet if she feels better. The patient was given a prescription for Zofran. The patient was instructed to follow up with her primary care physician in 5-7 days. The patient understood and was agreeable with the plan. All questions were answered. The patient was discharged in stable condition.
[2021-09-16 21:17] LABS: Absolute Lymphocyte Count 0.72 X10^3/uL (0.83-4.51); Absolute Neutrophil Count 11.6 X10^3/uL (2.0-7.7); Basophil# 0.02 X10^3/uL; Basophil% 0.2 % (0-1); Hematocrit 39.6 % (37-47); Hemoglobin 14.1 g/dL (12.0-15.0); Lymphocyte # 0.72 X10^3/ul (0.83-4.51); Lymphocyte % 5.8 % (19-41); Mean Corp Hgb Conc 35.6 g/dL (32-36); Mean Corpuscular Hgb 30.6 pg (27.0-32.0); Mean Corpuscular Volume 85.9 fL (81-99); Monocyte# 0.17 X10^3/uL; Monocyte% 1.4 % (0-10); NRBC Flagged by Analyzer 0 % (0-5); Neutrophil # 11.55 X10^3/uL (2.7-7.7); Neutrophil % 92.2 % (47-70); Platelet Count 304 K/mm3 (150-450); RBC Distribution Width CV 12.1 % (11.6-14.6); RBC Distribution Width SD 37.7 fl (35.1-43.9); Red Blood Count 4.61 M/mm3 (4.2-5.4); White Blood Count 12.5 K/mm3 (4.4-11.0)
[2021-09-17 01:32] LABS: ALB/GLOB Ratio 1.2 RATIO (0.9-2.4); AST(SGOT) 12 U/L (15-37); Alanine Aminotransfer ALT/SGPT 16 U/L (13-56); Albumin, Serum 4.3 g/dL (3.2-5.0); Alkaline Phosphatase 78 U/L (45-117); Anion Gap 9 (5-15); BUN 12 mg/dL (7-18); BUN/Creat Ratio 17.3 RATIO (10-20); Calcium,Total 9.1 mg/dL (8.5-10.1); Chloride 110 mmol/L (98-107); EST Glomerular Filtration Rate 114 mL/min (>60); Est Glom Filt Rate - Afr Amer 138 mL/min (>60); Globulin 3.6 g/dL (2.2-4.2); Glucose 109 mg/dL (74-106); Potassium 3.6 mmol/L (3.5-5.1); Protein, Total 7.9 g/dL (6.4-8.2); Sodium Level 140 mmol/L (136-145)
[2021-09-17 01:33] LABS: Internal QC Validated? YES +Cl - CLEAR BKGD; Pregnancy, Serum, hCG Quali. NEGATIVE Negative
== END 2021-09-16 17:26 | disposition home or self-care (01) ==
PROVIDERS: Emergency Provider Emergency Medicine; PCP Student in an Organized Health Care Education/Training Program; Referring Provider Emergency Medicine; Visit Provider Emergency Medicine
DX: R11.2 Nausea with vomiting, unspecified (principal)
CPT/HCPCS: 80053; 81001; 84703; 85025; 87426; 96374; 96375; 96376; 99284; J7030; A4216; J2405

== ENCOUNTER 2022-01-08 07:17 | Emergency (ER) | payer BC, SELFPAY ==
[2022-01-08 07:18] VITALS: BP 148/61; PULSE 107; RESP 26; TEMP 36.6; O2SAT 99; BMI 23.3
--- NOTE | 2022-01-08 07:33 | EDS_ITS ---
HPI History of Present Illness Chief Complaint: Anxiety Informant: patient Narrative Narrative: Sudden onset nausea vomiting since 5 AM this morning. No diarrhea. History of cyclic vomiting. She states she has had this for too long. She seen GI Dr. Rizzo a year ago with upper and lower endoscopies reported negative. Further discussion she states she does smoke marijuana however is decreased drastically however last use was yesterday. She has been told of hyperemesis syndrome from cannabis in the past. Last menstrual period was earlier this month. No urinary symptoms. No hematemesis. No fevers. Reports previous hot showers in the past did not help. Denies any allergies. Prior similar symptoms: Yes PFSH PFSH Medical History Generalized anxiety disorder Major depressive disorder, single episode, severe without psychosis Marijuana use Panic disorder Home Medications nitrofurantoin monohyd/m-cryst [Macrobid] 100 mg PO Q12H #9 cap 08/29/21 [Rx Last Taken Unknown] phenazopyridine [Pyridium] 200 mg PO TID PRN #6 tab 08/29/21 [Rx Last Taken Un known] ondansetron 4 mg PO Q6H PRN #10 tab 01/08/22 [Rx Last Taken Unknown] Allergy/AdvReac Type Severity Reaction Status Date / Time No Known Allergies Allergy Verified 01/08/22 07:22 Social History Smoking Status: Current every day smoker tobacco type: e-cigarettes substance use type: marijuana ROS ROS ED Constitutional Constitutional ED: Denies chills, fever(s) or sweats Eyes Eyes: Denies change in vision ENT ENT ED: Denies dysphagia or sore throat Cardiovascular Cardiovascular: Denies chest pain, leg edema, palpitations or racing heartbeat Respiratory/Chest Respiratory/Chest: Denies cough, dyspnea or dyspnea on exertion Gastrointestinal Gastrointestinal: Reports nausea and vomiting; Denies abdominal pain or diarrhea Genitourinary Genitourinary ED: Denies dysuria, hematuria or urinary frequency Musculoskeletal Musculoskeletal: Denies back pain, extremity pain or neck pain Integumentary Denies rash or wounds Neurologic Neurologic: Denies headache(s), paresthesias or weakness Psychiatric Psychiatric: Reports anxiety; Denies suicidal ideation or suicidal thoughts EXAM Physical Exam Const Vital Signs: 01/08/22 07:18 01/08/22 09:20 Temperature 97.9 F Temperature Source Temporal Pulse Rate 107 H 72 Respiratory Rate 26 H 16 Blood Pressure 148/61 H 118/73 Blood Pressure Mean 90 Pulse Ox 99 100 Oxygen Delivery Method Room Air Positive well nourished and well developed General Appearance ED: well developed and NAD HEENT Reports moist mucous membranes normocephalic and atraumatic Eyes PERRL, EOMs intact bilaterally and conjunctivae normal General Eye ED: Yes normal appearance of both eyes Neck no lymphadenopathy and supple General: Negative for tenderness Chest Wall Chest: Negative for tenderness Resp normal respiratory effort and normal air movement Effort and Inspection: symmetric chest movement; Negative for respiratory distress Cardio regular rhythm and no murmurs Rate: tachycardic Peripheral Pulses: pulses 2+ throughout GI normal to inspection, nondistended, normoactive bowel sounds and non-tender GI Narrative: Negative Salgado's McBurney's tenderness Palpation: Negative for guarding or rebound tenderness present Back/Spine no CVA tenderness and no thoracic nor lumbar tenderness Extremity normal to inspection General Extremety ED: Negative for edema or tenderness General Extremity: Negative for edema Neuro oriented x3 and no sensory deficits noted Sensorium / Orientation: awake and alert Psych Mood & Affect: anxious Skin no rashes or lesions noted and no wounds MDM MDM MDM Narrative Medical decision making narrative: Patient was a nonsurgical abdomen. She does admit to THC use. Clinically and history are concerning for cannabis hyperemesis syndrome. I will check electrolytes, hCG. She will be given fluids Pepcid Zofran along with Ativan. Will reevaluate. Reviewing records multiple visits and does have a care plan as of November 2020 for treatment according to symptoms and to avoid any type of opiates if not necessary. She is to be referred to her PCP, drug program as indicated. Patient electrolytes normal hCG negative. Improving on reevaluation states only mild cramping. She has a nonsurgical abdomen. She is given prescription for Zofran she is given GI for follow-up I reiterated cessation of THC. All questions answered. Lab Data Labs: Laboratory Results - last 24 hr 01/08/22 01/08/22 07:45 07:45 Sodium 139 Potassium 3.5 Chloride 108 H Carbon Dioxide 24.0 Anion Gap 7 BUN 11 Creatinine 0.90 Estim Creat Clear Calc 82.48 Est GFR (MDRD) Af Amer 102 Est GFR (MDRD) Non-Af 84 BUN/Creatinine Ratio 12.2 Glucose 127 H Calcium 9.6 Serum , Qual NEGATIVE Discharge Plan Triage Chief Complaint: Anxiety ED Provider: Jalen Hoskins Dx/Rx/DC Orders Clinical Impression: Cannabis hyperemesis syndrome concurrent with and due to cannabis abuse, Anxiety Instructions: Cannabinoid Hyperemesis Syndrome Prescriptions: New ondansetron 4 mg tablet,disintegrating 4 mg PO Q6H PRN (Reason: nausea and vomiting) Qty: 10 RF: 0 No Action phenazopyridine [Pyridium] 200 mg tablet 200 mg PO TID PRN (Reason: pain) Qty: 6 RF: 0 nitrofurantoin monohyd/m-cryst [Macrobid] 100 mg capsule 100 mg PO Q12H Qty: 9 RF: 0 Primary Care Provider: Wilfred Nova Referrals: Wilfred Nova DO [Primary Care Provider] - FriendJason DO [STAFF PHYSICIAN] - 1-2 Weeks Activity Restrictions/Additional Instructions: Avoid marijuana use if you do not want your recurrent symptoms. Follow-up as an outpatient. Sreedhar sent to your pharmacy. Disposition Disposition: Home, Self Care Discharge Date/Time: 01/08/22 09:22
[2022-01-08] MEDS: Ondansetron 4 MG/2 ML Vial IV (07:52)
[2022-01-08] MEDS: 0.9% Normal Saline 1,000 ML 1000 ML IV (07:52)
[2022-01-08] MEDS: LORazepam 2 MG/ML Syringe 1 MG IV (07:54)
[2022-01-08] MEDS: Famotidine 200 MG/20 ML MDV 20 MG in 0.9% Normal Saline (Pres. free 8 ML 300 MG IV (07:54)
[2022-01-08 08:06] LABS: Anion Gap 7 (5-15); BUN 11 mg/dL (7-18); BUN/Creat Ratio 12.2 RATIO (10-20); Calcium,Total 9.6 mg/dL (8.5-10.1); Chloride 108 mmol/L (98-107); EST Glomerular Filtration Rate 84 mL/min (>60); Est Glom Filt Rate - Afr Amer 102 mL/min (>60); Estimated Creatinine Clearance 82.48 ml/min; Glucose 127 mg/dL (74-106); Potassium 3.5 mmol/L (3.5-5.1); Sodium Level 139 mmol/L (136-145)
[2022-01-08 08:14] LABS: Internal QC Validated? YES +Cl - CLEAR BKGD; Pregnancy, Serum, hCG Quali. NEGATIVE Negative
[2022-01-08 09:20] VITALS: BP 118/73; PULSE 72; RESP 16; O2SAT 100
== END 2022-01-08 09:22 | disposition home or self-care (01) ==
PROVIDERS: Emergency Provider Emergency Medicine; PCP Student in an Organized Health Care Education/Training Program; Visit Provider Emergency Medicine
DX: F12.188 Cannabis abuse with other cannabis-induced disorder (principal); F41.9 Anxiety disorder, unspecified; F17.210 Nicotine dependence, cigarettes, uncomplicated; F32.9 Major depressive disorder, single episode, unspecified
CPT/HCPCS: 80048; 84703; 96365; 96366; 96375; 99283; A4216; J2405; J3490

== ENCOUNTER 2022-03-18 10:07 | Emergency (ER) | payer BC, SELFPAY ==
[2022-03-18 10:08] VITALS: BP 113/67; PULSE 91; RESP 16; TEMP 36.6; O2SAT 99; BMI 23.0
--- NOTE | 2022-03-18 10:42 | EX.ED.VIS.PS ---
HPI HPI - Psych History of Present Illness Chief Complaint: Mental Health Narrative Narrative: 21-year-old female with history of anxiety presenting with panic attack. She states she woke up this morning was feeling anxious and she did not have anybody to talk to. She feels as if her anxiety spiraled out of control this morning. She does have lorazepam which she was previously taking as needed for anxiety. She is previously on duloxetine as well but is not taking this. Patient does state that she had some success with intensive outpatient program here in [place] previously with her anxiety. She states she has not regularly followed up or been doing psychiatric follow-up. She is also not taking any psychiatric medications currently. She does not have any homicidal ideation. She states that she is not feeling suicidal but does state that she does not want to go on with this level of anxiety in her life. PFSH PFS Medical History Generalized anxiety disorder Major depressive disorder, single episode, severe without psychosis Marijuana use Panic disorder Home Medications ondansetron 4 mg disintegrating tablet 4 mg PO Q6H PRN nausea and vomiting #10 tabs 01/08/22 [Rx Last Taken Unknown] duloxetine 20 mg capsule,delayed release 20 mg PO DAILY 03/18/22 [History Last Taken Unknown] famotidine 20 mg tablet 2 mg PO DAILY 03/18/22 [History Last Taken Unknown] lorazepam 0.5 mg tablet 0.5 mg PO PRN PRN Anxiety 03/18/22 [History Last Taken Unknown] Allergy/AdvReac Type Severity Reaction Status Date / Time No Known Allergies Allergy Verified 03/18/22 10:12 Social History Smoking Status: Current every day smoker tobacco type: e-cigarettes substance use type: marijuana EXAM Physical Exam Const Vital Signs: 03/18/22 10:08 Temperature 97.9 F Temperature Source Temporal Pulse Rate 91 Respiratory Rate 16 Blood Pressure 113/67 Blood Pressure Mean 82 Pulse Ox 99 Oxygen Delivery Method Room Air Positive well nourished General Appearance ED: NAD HEENT Reports moist mucous membranes Negative for trauma or tenderness Eyes PERRL and EOMs intact bilaterally Resp normal respiratory effort Auscultation: Negative for rales, rhonchi or wheezes Extremity normal to inspection Neuro oriented x3 and CN's II-XII intact bilaterally Sensorium / Orientation: alert Motor Exam: strength 5/5 throughout Psych speech normal, activity/motor behavior normal, denies hallucinations, denies homicidal ideation and denies suicidal ideation Appearance: grossly normal Attitude: calm Activity / Motor Behavior: appropriate eye contact Speech: normal speech Mood & Affect: sad and tearful Thought Process: normal thought process Thought Content: No suicidality, No homicidality and No hallucination(s) Attention / Concentration: attention grossly intact and concentration grossly intact Memory / Cognition: memory grossly intact Insight: fair Judgement: fair MDM MDM MDM Narrative Medical decision making narrative: Patient presenting with anxiety which is actually rapidly improving. I do not believe she needs continued inpatient care. Patient does state that she does not want to go on with having some level of anxiety but is not expressing to me that she has any suicidal or homicidal ideation. Patient does have a history of noncompliance with her anxiety medications and she has been lost to follow-up. Currently she feels stressed because she had to move into a 1 bedroom apartment after losing her home. Patient requests outpatient resources which I think is reasonable. She was able to speak with crisis today and she feels comfortable with outpatient resources and follow-up. I myself and crisis do not believe she would require any inpatient care. Patient discharged home in stable condition. Impression: 1. Medical noncompliance 2. Anxiety 3. Depression Discharge Plan Triage Chief Complaint: Mental Health Other Complaint: Anxiety ED Provider: Jigar Downey Dx/Rx/DC Orders Instructions: ED Anxiety Reaction Prescriptions: No Action ondansetron 4 mg tablet,disintegrating 4 mg PO Q6H PRN (Reason: nausea and vomiting) Qty: 10 0RF famotidine 20 mg tablet 2 mg PO DAILY Label Comments: TAKE 1 TABLET BY MOUTH TWICE A DAY lorazepam 0.5 mg tablet 0.5 mg PO PRN PRN (Reason: Anxiety) Label Comments: TAKE 1 TABLET BY MOUTH TWICE DAILY NEEDED FOR UP TO 30 DAYS. duloxetine 20 mg capsule,delayed release(DR/EC) 20 mg PO DAILY Label Comments: TAKE 1 CAPSULE BY MOUTH ONCE DAILY Primary Care Provider: Wilfred Nova Referrals: Wilfred Nova DO [Primary Care Provider] - Activity Restrictions/Additional Instructions: Today you were able to speak with the crisis counselor. She recommended that if you have any more anxiety that you call her first. The phone number is [phone]. You can call 24 hours a day. Disposition Disposition: Home, Self Care
--- NOTE | 2022-03-18 10:43 | NURSING ---
CALLED [facility] FOR DR AGUILAR
--- NOTE | 2022-03-18 10:47 | NURSING ---
[facility], [facility], FOR DR AGUILAR
--- NOTE | 2022-03-18 11:52 | NURSING ---
FAXED FACESHEET TO [facility]
[2022-03-18 12:00] VITALS: RESP 16
== END 2022-03-18 12:32 | disposition home or self-care (01) ==
PROVIDERS: Emergency Provider Student in an Organized Health Care Education/Training Program; PCP Student in an Organized Health Care Education/Training Program; Visit Provider Student in an Organized Health Care Education/Training Program
DX: Z91.19 Patient's noncompliance with other medical treatment and regimen (principal); F41.9 Anxiety disorder, unspecified; F32.A Depression, unspecified; F12.90 Cannabis use, unspecified, uncomplicated; F17.290 Nicotine dependence, other tobacco product, uncomplicated; Z79.899 Other long term (current) drug therapy
CPT/HCPCS: 99282

== ENCOUNTER 2022-05-02 11:46 | Emergency (ER) | payer BC, SELFPAY ==
[2022-05-02 11:47] VITALS: BP 130/87; PULSE 91; RESP 14; TEMP 35.7; O2SAT 98; BMI 22.9
--- NOTE | 2022-05-02 12:16 | EX.ED.DYSGE1 ---
HPI History of Present Illness Chief Complaint: Anxiety Narrative Narrative: Patient with past medical history of anxiety and panic attacks, cyclic vomiting, presents with panic attack that began at 7:00 this morning, approximately 5 hours ago. Her mother states that she usually gets diarrhea with this and has developed abdominal pain and has nausea and vomiting associated with it. She becomes shaky. Her last panic attack was weeks to months ago. She has had to come to the emergency department previously where she receives IV lorazepam. She does not take her oral lorazepam that was given to her by her primary care physician because she was afraid she was going to vomit it back up. She denies any exacerbating or alleviating factors. No suicidal ideation. She complains of diffuse, crampy abdominal pain, nausea, vomiting, and anxiety with shakiness. [facility] Medical History Generalized anxiety disorder Major depressive disorder, single episode, severe without psychosis Marijuana use Panic disorder Home Medications ondansetron 4 mg disintegrating tablet 4 mg PO Q6H PRN nausea and vomiting #10 tabs 01/08/22 [Rx Last Taken Unknown] duloxetine 20 mg capsule,delayed release 20 mg PO DAILY 03/18/22 [History Last Taken Unknown] famotidine 20 mg tablet 2 mg PO DAILY 03/18/22 [History Last Taken Unknown] lorazepam 0.5 mg tablet 0.5 mg PO PRN PRN Anxiety 03/18/22 [History Last Taken Unknown] Allergy/AdvReac Type Severity Reaction Status Date / Time No Known Allergies Allergy Verified 05/02/22 11:47 Social History Smoking Status: Current every day smoker tobacco type: e-cigarettes substance use type: marijuana ROS ROS ED ROS Narrative Constitutional: No fever, no chills. HEENT: No sore throat. No neck pain. No loss of vision. No rhinorrhea. Cardiovascular: No chest pain. No palpitations. No pedal edema. Respiratory: No cough, no shortness of breath. Abdominal: Diffuse abdominal pain. Positive nausea. Positive vomiting. No problems with bowel movements, no diarrhea. Genitourinary: No dysuria. No hematuria. Musculoskeletal: No myalgias. No arthralgias. Neurologic: No headaches. No dizziness. No lightheadedness. Skin: No rash. No change in color. Psychiatric: No depression. Positive anxiety. EXAM Physical Exam Narrative Exam Narrative: Afebrile. Vital signs noted. HEENT: Normocephalic. Atraumatic. PERRL, EOMI. Neck soft and supple. No point tenderness or step off. Cardiovascular: Regular rate and rhythm. No murmurs, rubs, or gallops appreciated. Respiratory: No tachypnea. Lungs clear to auscultation bilaterally. Gastrointestinal: Abdomen soft, nontender, with normoactive bowel sounds. No rebound or guarding. Neurological: Awake. Alert. Nonfocal, nonlateralizing. Skin: No rash. Normal color. No pallor. Musculoskeletal: No pedal edema. Full range of motion extremities. Psychiatric: Tearful on examination. Positive anxiety. Const Vital Signs: 05/02/22 11:47 05/02/22 13:53 Temperature 96.2 F L Temperature Source Temporal Pulse Rate 91 73 Respiratory Rate 14 16 Blood Pressure 130/87 H 92/50 L Blood Pressure Mean 101 64 Pulse Ox 98 100 Oxygen Delivery Method Room Air Room Air MDM MDM MDM Narrative Medical decision making narrative: Patient was bolused IV fluids and she was administered ondansetron and 0.5 mg of lorazepam along with a normal saline 1 L fluid bolus. I will check her CBC and CMP to ensure she is not dehydrated, along with a lipase and a test. Serum is negative. Her electrolyte panel is grossly unremarkable except for glucose of 127 with a normal anion gap of 8. No evidence of dehydration with normal BUN and normal creatinine. Lipase normal at 141. CBC shows a leukocytosis of 14.9 which I think is nonspecific and she has had in the past. Hemoglobin normal at 14.3 with platelet count normal at 327. After IV fluids, Ativan, and Ativan Zofran, she is resting comfortably, looking at her cellular telephone. At this point in time, I feel she be discharged safely home with follow-up to her primary care physician. She was told that she may need follow-up with psychiatry additionally. She states that she has history of cyclic vomiting which is related to her anxiety and panic attacks. Return instructions were reviewed. Disposition is discharged home in improved and stable condition. Lab Data Attestation: I reviewed the patient's lab results. Labs: Laboratory Results - last 24 hr 05/02/22 05/02/22 05/02/22 12:20 12:20 12:20 WBC 14.9 H RBC 4.65 Hgb 14.3 Hct 40.7 MCV 87.5 MCH 30.8 MCHC 35.1 RDW Std Deviation 39.6 RDW Coeff of Mario 12.2 Plt Count 327 MPV 10.0 Immature Gran % (Auto) 0.300 Neut % (Auto) 88.9 H Lymph % (Auto) 8.8 L Hinds % (Auto) 1.7 Eos % (Auto) 0.0 Baso % (Auto) 0.3 Absolute Neuts (auto) 13.3 H Absolute Lymphs (auto) 1.32 Nucleated RBC % 0 Sodium 139 Potassium 3.9 Chloride 107 Carbon Dioxide 24.0 Anion Gap 8 BUN 11 Creatinine 0.80 Estim Creat Clear Calc 92.79 Est GFR (MDRD) Af Amer 116 Est GFR (MDRD) Non-Af 96 BUN/Creatinine Ratio 13.7 Glucose 127 H Calcium 9.6 Total Bilirubin 0.60 AST 13 L ALT 18 Alkaline Phosphatase 87 Total Protein 8.1 Albumin 4.2 Globulin 3.9 Albumin/Globulin Ratio 1.1 Lipase 141 Serum , Qual NEGATIVE Discharge Plan Triage Chief Complaint: Anxiety ED Provider: Dharmesh Seals Dx/Rx/DC Orders Clinical Impression: Anxiety, Panic attack, Abdominal pain of unknown etiology Instructions: ED Anxiety Reaction, ED Panic Attack Prescriptions: No Action ondansetron 4 mg tablet,disintegrating 4 mg PO Q6H PRN (Reason: nausea and vomiting) Qty: 10 0RF famotidine 20 mg tablet 2 mg PO DAILY Label Comments: TAKE 1 TABLET BY MOUTH TWICE A DAY lorazepam 0.5 mg tablet 0.5 mg PO PRN PRN (Reason: Anxiety) Label Comments: TAKE 1 TABLET BY MOUTH TWICE DAILY NEEDED FOR UP TO 30 DAYS. duloxetine 20 mg capsule,delayed release(DR/EC) 20 mg PO DAILY Label Comments: TAKE 1 CAPSULE BY MOUTH ONCE DAILY Primary Care Provider: Wilfred Nova Referrals: Wilfred Nova, [Primary Care Provider] - 3-5 Days if not improving Disposition Disposition: Home, Self Care
[2022-05-02] MEDS: 0.9% Normal Saline 1,000 ML 1000 ML IV (12:30)
[2022-05-02] MEDS: Ondansetron 4 MG/2 ML Vial IV (12:31)
[2022-05-02] MEDS: LORazepam 2 MG/ML Syringe 0.5 MG IV (12:31)
[2022-05-02 12:34] LABS: Absolute Lymphocyte Count 1.32 X10^3/uL (0.83-4.51); Absolute Neutrophil Count 13.3 X10^3/uL (2.0-7.7); Basophil# 0.04 X10^3/uL; Basophil% 0.3 % (0-1); Hematocrit 40.7 % (37-47); Hemoglobin 14.3 g/dL (12.0-15.0); Lymphocyte # 1.32 X10^3/ul (0.83-4.51); Lymphocyte % 8.8 % (19-41); Mean Corp Hgb Conc 35.1 g/dL (32-36); Mean Corpuscular Hgb 30.8 pg (27.0-32.0); Mean Corpuscular Volume 87.5 fL (81-99); Monocyte# 0.26 X10^3/uL; Monocyte% 1.7 % (0-10); NRBC Flagged by Analyzer 0 % (0-5); Neutrophil # 13.25 X10^3/uL (2.7-7.7); Neutrophil % 88.9 % (47-70); Platelet Count 327 K/mm3 (150-450); RBC Distribution Width CV 12.2 % (11.6-14.6); RBC Distribution Width SD 39.6 fl (35.1-43.9); Red Blood Count 4.65 M/mm3 (4.2-5.4); White Blood Count 14.9 K/mm3 (4.4-11.0)
[2022-05-02 12:48] LABS: ALB/GLOB Ratio 1.1 RATIO (0.9-2.4); AST(SGOT) 13 U/L (15-37); Alanine Aminotransfer ALT/SGPT 18 U/L (13-56); Albumin, Serum 4.2 g/dL (3.2-5.0); Alkaline Phosphatase 87 U/L (45-117); Anion Gap 8 (5-15); BUN 11 mg/dL (7-18); BUN/Creat Ratio 13.7 RATIO (10-20); Calcium,Total 9.6 mg/dL (8.5-10.1); Chloride 107 mmol/L (98-107); EST Glomerular Filtration Rate 96 mL/min (>60); Est Glom Filt Rate - Afr Amer 116 mL/min (>60); Estimated Creatinine Clearance 92.79 ml/min; Globulin 3.9 g/dL (2.2-4.2); Glucose 127 mg/dL (74-106); Lipase 141 U/L (73-393); Potassium 3.9 mmol/L (3.5-5.1); Protein, Total 8.1 g/dL (6.4-8.2); Sodium Level 139 mmol/L (136-145)
[2022-05-02 12:59] LABS: Internal QC Validated? YES +Cl - CLEAR BKGD; Pregnancy, Serum, hCG Quali. NEGATIVE Negative
--- NOTE | 2022-05-02 13:01 | CASEMGMT ---
Social Work Consult: Anxiety Referral source: Self referral due to reason for ED visit. Informants: Patient, patient mother, medical chart. Chief Complaint: Anxiety that started this morning. Patient reports to have gone to patient mothers home because unable to control it. Marital/Social History: Single. Living Situation: Reports no concerns for house. Support/Resources: Reports to have a positive support system from friends/mother. Patient reports to have a counseling appointment with the counseling center of [facility] that is scheduled for today but I won't be able to make it. Patient reports that this is second appointment, first appointment to establish care. History: Did not assess. Education/Employment History: High School diploma. 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 Mental health Treatment/History: Anxiety, Major Depressive disorder, Panic disorder. Patient reports to be prescribed Lorazepam by Dr. Sunitha Jaime and to sometimes take medication. Patient reports I am irresponsible and has difficulty remembering or motivating self to take medication. Risk to Self/Others: Patient denies suicidal thoughts, plans, intents or history of. Patient reports to feel safe in current living situation. Substance Abuse Hx: Daily Marijuana usage, per chart review. Assessment: Met with patient in room. Introduced self and home health care social worker role. Patient agreeable to speak with this home health care social worker. Patient mother present in room, patient provided verbal permission for this home health care social worker to speak openly with patient mother present. Patient initially speaking with this home health care social worker and then started to shake. Patient started to stop making eye contact with this home health care social worker and continued to take. This home health care social worker inquired if patient would be agreeable to this home health care social worker bringing patient local resource information on mental health, patient agreeable to this and would like to discontinue the assessment. This home health care social worker did broach importance of going to counseling appointment and educated patient on how this could assist patient in managing mental health to improve quality of life, patient voiced understanding. This home health care social worker was able to juvenile counselor patient on lethal means. Patient confirms to have no firearms in the home where patient is staying and not assess to firearms. Active support and listening provided. This home health care social worker provided patient with resource on local crisis hotline, counseling services, Substance abuse supports/resources, and [facility] [email or web address] card. No further services requested or indicated. PLAN: Discharge to the community with continued counseling services. MERRICK Heath
[2022-05-02 13:53] VITALS: BP 92/50; PULSE 73; RESP 16; O2SAT 100
[2022-05-02 14:51] VITALS: RESP 16
== END 2022-05-02 14:52 | disposition home or self-care (01) ==
PROVIDERS: Emergency Provider Emergency Medicine; PCP Student in an Organized Health Care Education/Training Program; Visit Provider Emergency Medicine
DX: F41.0 Panic disorder [episodic paroxysmal anxiety] (principal); R10.9 Unspecified abdominal pain; F12.90 Cannabis use, unspecified, uncomplicated; F17.290 Nicotine dependence, other tobacco product, uncomplicated; F32.A Depression, unspecified; Z79.899 Other long term (current) drug therapy
CPT/HCPCS: 80053; 83690; 84703; 85025; 96361; 96374; 96375; 99283; J7030; A4216; J2405

== ENCOUNTER 2022-05-22 12:48 | Emergency (ER) | payer BC, SELFPAY ==
[2022-05-22 12:49] VITALS: BP 123/87; PULSE 102; RESP 16; TEMP 36.3; O2SAT 98; BMI 22.4
--- NOTE | 2022-05-22 13:34 | ED.RN ---
witnessed pt sticking her finger done her throat to assist herself in gagging.
--- NOTE | 2022-05-22 14:03 | NURSING ---
SPOKE WITH MATILDE FROM [facility], ETA OF 1 HOUR AT THIS TIME TO GET PT TO [facility] IN [facility]
--- NOTE | 2022-05-22 14:28 | EDS_ITS ---
HPI History of Present Illness Chief Complaint: Anxiety Narrative Narrative: 21-year-old female presenting to the emergency room with anxiety nausea. Patient states that her ex-boyfriend whom she has not had a relationship with for 2 years committed suicide on Saturday. She found out about this on Saturday notes nausea and anxiety since. She takes duloxetine daily for anxiety. She notes abdominal discomfort. She notes a slight amount of diarrhea. No fevers. She denies any suicidal or homicidal ideations. [facility] Medical History Generalized anxiety disorder Major depressive disorder, single episode, severe without psychosis Marijuana use Panic disorder Home Medications ondansetron 4 mg disintegrating tablet 4 mg PO Q6H PRN nausea and vomiting #10 tabs 01/08/22 [Rx Last Taken Unknown] duloxetine 20 mg capsule,delayed release 20 mg PO DAILY 03/18/22 [History Last Taken Unknown] famotidine 20 mg tablet 2 mg PO DAILY 03/18/22 [History Last Taken Unknown] lorazepam 0.5 mg tablet (Ativan) 0.5 mg PO PRN PRN Anxiety 03/18/22 [History Last Taken Unknown] hydroxyzine pamoate 25 mg capsule (Vistaril) 25 mg PO TID PRN anxiety #20 caps 05/22/22 [Rx Last Taken Unknown] ondansetron HCl 4 mg tablet 4 mg PO Q6H PRN nausea and vomiting #15 tabs 05/22/22 [Rx Last Taken Unknown] Allergy/AdvReac Type Severity Reaction Status Date / Time No Known Allergies Allergy Verified 05/22/22 12:49 Social History Smoking Status: Current every day smoker tobacco type: e-cigarettes substance use type: marijuana ROS ROS ED Constitutional Constitutional ED: Denies chills or weight loss Eyes Eyes: Denies change in vision or diplopia ENT ENT ED: Denies ear pain, rhinorrhea or sore throat Cardiovascular Cardiovascular: Denies chest pain, orthopnea, palpitations or racing heartbeat Respiratory/Chest Respiratory/Chest: Denies cough, dyspnea or orthopnea Gastrointestinal Gastrointestinal: Reports nausea and vomiting; Denies abdominal pain or diarrhea Genitourinary Genitourinary ED: Denies dysuria, hematuria or urinary frequency Musculoskeletal Musculoskeletal: Denies arthralgias or myalgias Integumentary Denies abscess or rash Neurologic Neurologic: Denies headache(s) or weakness Psychiatric Psychiatric: Reports anxiety and depression; Denies suicidal ideation or suicidal thoughts Endocrine Endocrinology: Denies polydipsia, polyphagia or polyuria Allergic/Immunologic Allergic/Immunologic ED: Denies mouth swelling, tongue swelling or urticaria EXAM Physical Exam Narrative Exam Narrative: Patient is crying lying on her side. She is redirectable. She appears anxious at times. She is vomiting. Const Vital Signs: 05/22/22 12:49 05/22/22 15:11 Temperature 97.3 F L Temperature Source Temporal Pulse Rate 102 H 80 Respiratory Rate 16 16 Blood Pressure 123/87 H 110/65 Blood Pressure Mean 99 80 Pulse Ox 98 100 Oxygen Delivery Method Room Air Room Air Positive well nourished and well developed General Appearance ED: well developed HEENT Reports normocephalic, head/scalp atraumatic and moist mucous membranes Eyes PERRL and EOMs intact bilaterally Neck no lymphadenopathy, supple and no JVD Resp normal respiratory effort and clear to auscultation bilaterally Cardio regular rate, regular rhythm and no murmurs GI normal to inspection, nondistended, normoactive bowel sounds and non-tender Palpation: soft Back/Spine no CVA tenderness and normal ROM Extremity normal to inspection General Extremety ED: Negative for edema General Extremity: Negative for edema Neuro oriented x3 and CN's II-XII intact bilaterally Sensorium / Orientation: alert Motor Exam: strength 5/5 throughout Psych Mood & Affect: anxious and tearful; Negative for depressed Skin no rashes or lesions noted and no wounds MDM MDM MDM Narrative Medical decision making narrative: Patient presented with anxiety and several life stressors. She does have a history of the same. Patient received Zofran and Benadryl. I had social work see her. Basic blood work is negative. She received IV fluids. At this point patient will be discharged home. I will prescribe some Vistaril would recommend following up with the counseling center. Lab Data Attestation: I reviewed the patient's lab results. Labs: Laboratory Results - last 24 hr 05/22/22 05/22/22 14:40 14:40 WBC 11.8 H RBC 4.38 Hgb 13.6 Hct 38.6 MCV 88.1 MCH 31.1 MCHC 35.2 RDW Std Deviation 39.1 RDW Coeff of Mario 12.1 Plt Count 320 MPV 10.2 Immature Gran % (Auto) 0.300 Neut % (Auto) 91.1 H Lymph % (Auto) 6.3 L Sandoval % (Auto) 2.1 Eos % (Auto) 0.0 Baso % (Auto) 0.2 Absolute Neuts (auto) 10.7 H Absolute Lymphs (auto) 0.74 L Nucleated RBC % 0 Sodium 142 Potassium 3.8 Chloride 109 H Carbon Dioxide 25.0 Anion Gap 8 BUN 12 Creatinine 0.82 Estim Creat Clear Calc 90.53 Est GFR (MDRD) Af Amer 113 Est GFR (MDRD) Non-Af 93 BUN/Creatinine Ratio 14.6 Glucose 129 H Calcium 9.6 Total Bilirubin 1.00 AST 13 L ALT 15 Alkaline Phosphatase 91 Total Protein 7.9 Albumin 4.5 Globulin 3.4 Albumin/Globulin Ratio 1.3 Discharge Plan Triage Chief Complaint: Anxiety ED Provider: Fernando Sanchez Dx/Rx/DC Orders Clinical Impression: Vomiting, Acute anxiety Instructions: ED Anxiety Reaction Prescriptions: New hydroxyzine pamoate [Vistaril] 25 mg capsule 25 mg PO TID PRN (Reason: anxiety) Qty: 20 0RF ondansetron HCl 4 mg tablet 4 mg PO Q6H PRN (Reason: nausea and vomiting) Qty: 15 0RF No Action ondansetron 4 mg tablet,disintegrating 4 mg PO Q6H PRN (Reason: nausea and vomiting) Qty: 10 0RF famotidine 20 mg tablet 2 mg PO DAILY Label Comments: TAKE 1 TABLET BY MOUTH TWICE A DAY lorazepam [Ativan] 0.5 mg tablet 0.5 mg PO PRN PRN (Reason: Anxiety) Label Comments: TAKE 1 TABLET BY MOUTH TWICE DAILY NEEDED FOR UP TO 30 DAYS. duloxetine 20 mg capsule,delayed release(DR/EC) 20 mg PO DAILY Label Comments: TAKE 1 CAPSULE BY MOUTH ONCE DAILY Primary Care Provider: Wilfred Nova Referrals: Wilfred Nova DO [Primary Care Provider] - As soon as possible Disposition Disposition: Home, Self Care
[2022-05-22] MEDS: DiphenhydrAMINE 50 MG/ML Syringe IV (14:38)
[2022-05-22] MEDS: Ondansetron 4 MG/2 ML Vial IV ×2 (14:38→16:03)
[2022-05-22] MEDS: 0.9% Normal Saline 1,000 ML 1000 ML IV (14:38)
[2022-05-22 14:47] LABS: Absolute Lymphocyte Count 0.74 X10^3/uL (0.83-4.51); Absolute Neutrophil Count 10.7 X10^3/uL (2.0-7.7); Basophil# 0.02 X10^3/uL; Basophil% 0.2 % (0-1); Hematocrit 38.6 % (37-47); Hemoglobin 13.6 g/dL (12.0-15.0); Lymphocyte # 0.74 X10^3/ul (0.83-4.51); Lymphocyte % 6.3 % (19-41); Mean Corp Hgb Conc 35.2 g/dL (32-36); Mean Corpuscular Hgb 31.1 pg (27.0-32.0); Mean Corpuscular Volume 88.1 fL (81-99); Mean Platelet Vol. 10.2 fl (6.2-12.0); Monocyte# 0.25 X10^3/uL; Monocyte% 2.1 % (0-10); NRBC Flagged by Analyzer 0 % (0-5); Neutrophil # 10.72 X10^3/uL (2.7-7.7); Neutrophil % 91.1 % (47-70); Platelet Count 320 K/mm3 (150-450); RBC Distribution Width CV 12.1 % (11.6-14.6); RBC Distribution Width SD 39.1 fl (35.1-43.9); Red Blood Count 4.38 M/mm3 (4.2-5.4); White Blood Count 11.8 K/mm3 (4.4-11.0)
--- NOTE | 2022-05-22 14:56 | CM.ED ---
Addendum entered by Tiffani Persaud 05/22/22 16:27: ETO updated MD that patient has an ED care plan. SW went back into the room and reviewed counseling resources this [employer] operator had provided. Patient said that she had been in IOP in the past and was open to calling again to see about entering the program again. TEO advised patient that the number for IOP was on the pamphlet. No other social work issues identified. TEO remains available if needs arise. Tiffani NIX Original Note: TEO Note Referral Source: MD Referral Reason: Anxiety MD met with patient. He voiced that patient would benefit from counseling resources. TEO met with patient briefly as she was vomiting. TEO provided patient with information on [facility] program and list of counselors. TEO remains available if needs arise. Tiffani NIX
[2022-05-22 15:00] LABS: ALB/GLOB Ratio 1.3 RATIO (0.9-2.4); AST(SGOT) 13 U/L (15-37); Alanine Aminotransfer ALT/SGPT 15 U/L (13-56); Albumin, Serum 4.5 g/dL (3.2-5.0); Alkaline Phosphatase 91 U/L (45-117); Anion Gap 8 (5-15); BUN 12 mg/dL (7-18); BUN/Creat Ratio 14.6 RATIO (10-20); Calcium,Total 9.6 mg/dL (8.5-10.1); Chloride 109 mmol/L (98-107); Creatinine, Serum 0.82 mg/dL (0.55-1.02); EST Glomerular Filtration Rate 93 mL/min (>60); Est Glom Filt Rate - Afr Amer 113 mL/min (>60); Estimated Creatinine Clearance 90.53 ml/min; Globulin 3.4 g/dL (2.2-4.2); Glucose 129 mg/dL (74-106); Potassium 3.8 mmol/L (3.5-5.1); Protein, Total 7.9 g/dL (6.4-8.2); Sodium Level 142 mmol/L (136-145)
[2022-05-22 15:11] VITALS: BP 110/65; PULSE 80; RESP 16; O2SAT 100
[2022-05-22 16:06] VITALS: PULSE 100; RESP 16; O2SAT 98
== END 2022-05-22 16:07 | disposition home or self-care (01) ==
PROVIDERS: Emergency Provider Emergency Medicine; PCP Student in an Organized Health Care Education/Training Program; Visit Provider Emergency Medicine
DX: F41.9 Anxiety disorder, unspecified (principal); R11.10 Vomiting, unspecified; F17.290 Nicotine dependence, other tobacco product, uncomplicated; F12.90 Cannabis use, unspecified, uncomplicated; Z79.899 Other long term (current) drug therapy
CPT/HCPCS: 80053; 85025; 96361; 96374; 96375; 96376; 99283; J7030; A4216; J2405

== ENCOUNTER 2022-05-24 08:47 | Emergency (ER) | payer BC, SELFPAY ==
[2022-05-24 08:48] VITALS: BP 132/81; PULSE 85; RESP 17; TEMP 35.6; O2SAT 98; BMI 22.8
--- NOTE | 2022-05-24 09:48 | EDS_ITS ---
HPI HPI - Psych History of Present Illness Chief Complaint: Anxiety Detail of Chief Complaint: Anxiety Informant: patient and parent Narrative Narrative: Patient presents the emergency department complaint of anxiety. Patient states has been dealing with it for a week. Patient tells me she was here couple of days ago and given Benadryl and Vistaril and no improvement in symptoms. Mother tells me that on the way here patient told her that she wanted to jump out of the car and she did not want live anymore. Trigger for this anxiety may be that patient's ex-boyfriend recently committed suicide. When asked if she wants to hurt her self she tells me now. Patient is supposed to be on duloxetine but has not been taking it. Mother spoke with crisis and they were advised to come to the emergency department. Patient denies any auditory or visual hallucinations. Prior similar symptoms: Yes PFSH PFSH Medical History Generalized anxiety disorder Major depressive disorder, single episode, severe without psychosis Marijuana use Panic disorder Home Medications ondansetron 4 mg disintegrating tablet 4 mg PO Q6H PRN nausea and vomiting #10 tabs 01/08/22 [Rx Last Taken Unknown] duloxetine 20 mg capsule,delayed release 20 mg PO DAILY 03/18/22 [History Last Taken Unknown] famotidine 20 mg tablet 2 mg PO DAILY 03/18/22 [History Last Taken Unknown] lorazepam 0.5 mg tablet (Ativan) 0.5 mg PO PRN PRN Anxiety 03/18/22 [History Last Taken Unknown] hydroxyzine pamoate 25 mg capsule (Vistaril) 25 mg PO TID PRN anxiety #20 caps 05/22/22 [Rx Last Taken Unknown] ondansetron HCl 4 mg tablet 4 mg PO Q6H PRN nausea and vomiting #15 tabs 05/22/22 [Rx Last Taken Unknown] lorazepam 1 mg tablet (Ativan) 1 mg PO TID PRN anxiety #10 tabs 05/24/22 [Rx Last Taken Unknown] Allergy/AdvReac Type Severity Reaction Status Date / Time No Known Allergies Allergy Verified 05/24/22 08:47 Social History Smoking Status: Current every day smoker tobacco type: e-cigarettes substance use type: marijuana ROS ROS ED Review of Systems ROS Unobtainable: other Constitutional Constitutional ED: Reports lethargy; Denies chills, fever(s), sweats or weight loss Eyes Eyes: Denies blurry vision, change in vision or diplopia ENT ENT ED: Denies rhinorrhea or sore throat Cardiovascular Cardiovascular: Reports chest pain and racing heartbeat; Denies orthopnea Respiratory/Chest Respiratory/Chest: Reports dyspnea and dyspnea on exertion; Denies cough, orthopnea or sputum Gastrointestinal Gastrointestinal: Denies abdominal pain, diarrhea, nausea or vomiting Genitourinary Genitourinary ED: Denies dysuria, hematuria or urinary frequency Musculoskeletal Musculoskeletal: Denies arthralgias, back pain, myalgias or neck pain Integumentary Denies abscess, Abrasions or rash Neurologic Neurologic: Denies headache(s) or weakness Psychiatric Psychiatric: Reports anxiety; Denies depression or suicidal thoughts Endocrine Endocrinology: Denies polydipsia, polyphagia or polyuria Hematologic/Lymphatic Hematologic/Lymphatic: Denies easy bleeding, easy bruising or lymphadenopathy Allergic/Immunologic Allergic/Immunologic ED: Denies mouth swelling, tongue swelling or urticaria EXAM Physical Exam Const Vital Signs: 05/24/22 08:48 05/24/22 11:51 05/24/22 13:16 Temperature 96.1 F L 96.9 F L Temperature Source Temporal Temporal Pulse Rate 85 66 Respiratory Rate 17 16 16 Blood Pressure 132/81 H 116/54 L Blood Pressure Mean 98 74 Pulse Ox 98 98 Oxygen Delivery Method Room Air Room Air Room Air Positive well nourished and well developed General Appearance ED: well developed and NAD HEENT Reports TM's clear and moist mucous membranes normocephalic and atraumatic; Negative for trauma or tenderness Tympanic Membrane ED: Yes TM's clear Eyes PERRL and EOMs intact bilaterally General Eye ED: Negative for pale conjunctiva or scleral icterus Neck no lymphadenopathy, supple and no JVD General: Negative for tenderness Chest Wall inspection of chest normal and palpation of chest normal Chest: Negative for tenderness Resp normal respiratory effort and clear to auscultation bilaterally Effort and Inspection: Negative for respiratory distress or pain with movement Auscultation: Negative for rhonchi, wheezes or diminished lung sounds Cardio regular rate, regular rhythm, S1 normal heart sound, S2 normal heart sound and no murmurs Peripheral Pulses: pulses 2+ throughout GI normal to inspection, nondistended, normoactive bowel sounds, soft to palpation, non-tender, non-distended and no masses Back/Spine no CVA tenderness and no thoracic nor lumbar tenderness Extremity normal to inspection General Extremety ED: Negative for edema General Extremity: Negative for edema Neuro oriented x3, CN's II-XII intact bilaterally, no sensory deficits noted and gait normal Sensorium / Orientation: awake, alert, oriented to person, oriented to place and oriented to time Motor Exam: strength 5/5 throughout and strength abnormal Psych mental status grossly normal Skin no rashes or lesions noted and no wounds MDM MDM MDM Narrative Medical decision making narrative: Lab work-up unremarkable. Tox screen was positive for THC. Alcohol was negative. Patient was evaluated by crisis. I did give her 1 mg of Ativan she had a marked improvement in her mental status and agitation. At this point she is denying being suicidal and can contract for safety. Crisis will set her up for intensive outpatient therapy and follow-up with psychiatry. I will write her for as needed Ativan until that time. Patient will be discharged home in stable condition. Patient and her mother both in agreement with plan. Lab Data Attestation: I reviewed the patient's lab results. Labs: Laboratory Results - last 24 hr 05/24/22 05/24/22 05/24/22 10:02 10:02 10:02 WBC 10.7 RBC 4.23 Hgb 13.2 Hct 37.5 MCV 88.7 MCH 31.2 MCHC 35.2 RDW Std Deviation 41.1 RDW Coeff of Mario 12.6 Plt Count 314 MPV 10.5 Immature Gran % (Auto) 0.200 Neut % (Auto) 83.0 H Lymph % (Auto) 12.2 L Bullitt % (Auto) 4.2 Eos % (Auto) 0.1 Baso % (Auto) 0.3 Absolute Neuts (auto) 8.9 H Absolute Lymphs (auto) 1.30 Nucleated RBC % 0 Sodium 142 Potassium 3.0 L Chloride 107 Carbon Dioxide 23.0 Anion Gap 12 BUN 11 Creatinine 0.99 Estim Creat Clear Calc 74.98 Est GFR (MDRD) Af Amer 91 Est GFR (MDRD) Non-Af 75 BUN/Creatinine Ratio 11.1 Glucose 119 H Calcium 8.9 Serum , Qual Urine Opiates Screen Urine Methadone Screen Ur Barbiturates Screen Ur Phencyclidine Scrn Ur Amphetamines Screen MDMA (Ecstasy) Screen U Benzodiazepines Scrn Urine Cocaine Screen U Cannabinoids Screen Ur Drug Screen Comment Ethyl Alcohol 6.0 05/24/22 05/24/22 10:02 11:03 WBC RBC Hgb Hct MCV MCH MCHC RDW Std Deviation RDW Coeff of Mario Plt Count MPV Immature Gran % (Auto) Neut % (Auto) Lymph % (Auto) Bull[place] % (Auto) Eos % (Auto) Baso % (Auto) Absolute Neuts (auto) Absolute Lymphs (auto) Nucleated RBC % Sodium Potassium Chloride Carbon Dioxide Anion Gap BUN Creatinine Estim Creat Clear Calc Est GFR (MDRD) Af Amer Est GFR (MDRD) Non-Af BUN/Creatinine Ratio Glucose Calcium Serum , Qual NEGATIVE Urine Opiates Screen NEGATIVE Urine Methadone Screen NEGATIVE Ur Barbiturates Screen NEGATIVE Ur Phencyclidine Scrn NEGATIVE Ur Amphetamines Screen NEGATIVE MDMA (Ecstasy) Screen NEGATIVE U Benzodiazepines Scrn NEGATIVE Urine Cocaine Screen NEGATIVE U Cannabinoids Screen POSITIVE H Ur Drug Screen Comment Ethyl Alcohol Discharge Plan Triage Chief Complaint: Anxiety ED Provider: Darrin Wright Dx/Rx/DC Orders Clinical Impression: Acute anxiety Instructions: ED Anxiety Reaction, ED Depression Prescriptions: New lorazepam [Ativan] 1 mg tablet 1 mg PO TID PRN (Reason: anxiety) Qty: 10 0RF No Action ondansetron 4 mg tablet,disintegrating 4 mg PO Q6H PRN (Reason: nausea and vomiting) Qty: 10 0RF famotidine 20 mg tablet 2 mg PO DAILY Label Comments: TAKE 1 TABLET BY MOUTH TWICE A DAY lorazepam [Ativan] 0.5 mg tablet 0.5 mg PO PRN PRN (Reason: Anxiety) Label Comments: TAKE 1 TABLET BY MOUTH TWICE DAILY NEEDED FOR UP TO 30 DAYS. duloxetine 20 mg capsule,delayed release(DR/EC) 20 mg PO DAILY Label Comments: TAKE 1 CAPSULE BY MOUTH ONCE DAILY hydroxyzine pamoate [Vistaril] 25 mg capsule 25 mg PO TID PRN (Reason: anxiety) Qty: 20 0RF ondansetron HCl 4 mg tablet 4 mg PO Q6H PRN (Reason: nausea and vomiting) Qty: 15 0RF Primary Care Provider: Wilfred Nova Referrals: Wilfred Nova DO [Primary Care Provider] - Activity Restrictions/Additional Instructions: Follow-up with psychiatrist and with counseling center for intensive outpatient therapy. Disposition Disposition: Home, Self Care
[2022-05-24 10:18] LABS: Absolute Neutrophil Count 8.9 X10^3/uL (2.0-7.7); Basophil# 0.03 X10^3/uL; Basophil% 0.3 % (0-1); Eosinophil# 0.01 X10^3/uL; Eosinophils% 0.1 % (0-5); Hematocrit 37.5 % (37-47); Hemoglobin 13.2 g/dL (12.0-15.0); Lymphocyte % 12.2 % (19-41); Mean Corp Hgb Conc 35.2 g/dL (32-36); Mean Corpuscular Hgb 31.2 pg (27.0-32.0); Mean Corpuscular Volume 88.7 fL (81-99); Mean Platelet Vol. 10.5 fl (6.2-12.0); Monocyte# 0.45 X10^3/uL; Monocyte% 4.2 % (0-10); NRBC Flagged by Analyzer 0 % (0-5); Neutrophil # 8.86 X10^3/uL (2.7-7.7); Platelet Count 314 K/mm3 (150-450); RBC Distribution Width CV 12.6 % (11.6-14.6); RBC Distribution Width SD 41.1 fl (35.1-43.9); Red Blood Count 4.23 M/mm3 (4.2-5.4); White Blood Count 10.7 K/mm3 (4.4-11.0)
[2022-05-24 10:22] LABS: Anion Gap 12 (5-15); BUN 11 mg/dL (7-18); BUN/Creat Ratio 11.1 RATIO (10-20); Calcium,Total 8.9 mg/dL (8.5-10.1); Chloride 107 mmol/L (98-107); Creatinine, Serum 0.99 mg/dL (0.55-1.02); EST Glomerular Filtration Rate 75 mL/min (>60); Est Glom Filt Rate - Afr Amer 91 mL/min (>60); Estimated Creatinine Clearance 74.98 ml/min; Glucose 119 mg/dL (74-106); Sodium Level 142 mmol/L (136-145)
[2022-05-24] MEDS: LORazepam 2 MG/ML Syringe 1 MG IV (10:59)
[2022-05-24 11:16] LABS: Internal QC Validated? YES +Cl - CLEAR BKGD; Pregnancy, Serum, hCG Quali. NEGATIVE Negative
[2022-05-24 11:28] LABS: Amphetamine Urine VISTA NEGATIVE (<1000 ng/mL); Barbiturate Urine VISTA NEGATIVE (< 200 ng/mL); Benzodiazepine Urine VISTA NEGATIVE (< 200 ng/mL); Cocaine Urine VISTA NEGATIVE (< 300 ng/mL); Ecstacy Urine VISTA NEGATIVE (< 500 ng/mL); Methadone Urine VISTA NEGATIVE (< 300 ng/mL); PCP Urine VISTA NEGATIVE (< 25 ng/mL); THC Urine VISTA POSITIVE (< 50 ng/mL); Vista UDS pH Range 7
[2022-05-24 11:51] VITALS: RESP 16
--- NOTE | 2022-05-24 12:08 | NURSING ---
CRISIS CALLED AT 11:43
[2022-05-24 13:16] VITALS: BP 116/54; PULSE 66; RESP 16; TEMP 36.1; O2SAT 98
--- NOTE | 2022-05-24 13:40 | NURSING ---
CRISIS CALLED/INFORMATION FAXED AT BOTH 11:59 AND 13:33
[2022-05-24 15:23] VITALS: BP 125/79; PULSE 68; PULSE 72; RESP 15; O2SAT 100
== END 2022-05-24 15:29 | disposition home or self-care (01) ==
PROVIDERS: Emergency Provider Emergency Medicine; PCP Student in an Organized Health Care Education/Training Program; Visit Provider Emergency Medicine
DX: F41.9 Anxiety disorder, unspecified (principal); F12.90 Cannabis use, unspecified, uncomplicated; F17.290 Nicotine dependence, other tobacco product, uncomplicated
CPT/HCPCS: 80048; 80307; 82077; 84703; 85025; 96374; 99282; A4216

== ENCOUNTER 2022-07-06 20:12 | Emergency (ER) | payer BC, SELFPAY ==
[2022-07-06 20:12] VITALS: BP 134/78; PULSE 115; RESP 18; TEMP 36; O2SAT 99; BMI 23.0
--- NOTE | 2022-07-06 21:13 | EDS_ITS ---
HPI HPI - Psych History of Present Illness Chief Complaint: Mental Health Detail of Chief Complaint: Anxiety Informant: patient Narrative Narrative: Patient presents the emergency department complaint of feeling anxious. Patient states that over the last 3 days she has been waking up in the morning and feeling very anxious where her heart racing and she starts feeling nauseated and vomits. She vomited 2 days ago but not yesterday and then this morning started vomiting again. Patient took Ativan today around 1 PM and did well until around 5 or 6 PM when she woke up again and started feeling anxious again and she vomited and there was some blood in her vomitus x1. Patient denies feeling suicidal. She denies hallucinations. Patient's been seen in this department multiple times for anxiety. Patient does have hydroxyzine and lorazepam at home as needed but is not on any longstanding anxiety medications and does not see a psychiatrist currently. Patient would like to speak to crisis to have resources some potential follow-up with psychiatry. Patient also admits to smoking marijuana and she understands that this may be contributing to some of her emesis. This may also be contributing to her anxiety. [facility] Medical History Generalized anxiety disorder Major depressive disorder, single episode, severe without psychosis Marijuana use Panic disorder Home Medications ondansetron 4 mg disintegrating tablet 4 mg PO Q6H PRN nausea and vomiting #10 tabs 01/08/22 [Rx Last Taken Unknown] duloxetine 20 mg capsule,delayed release 20 mg PO DAILY 03/18/22 [History Last Taken Unknown] famotidine 20 mg tablet 2 mg PO DAILY 03/18/22 [History Last Taken Unknown] lorazepam 0.5 mg tablet (Ativan) 0.5 mg PO PRN PRN Anxiety 03/18/22 [History Last Taken Unknown] hydroxyzine pamoate 25 mg capsule (Vistaril) 25 mg PO TID PRN anxiety #20 caps 05/22/22 [Rx Last Taken Unknown] ondansetron HCl 4 mg tablet 4 mg PO Q6H PRN nausea and vomiting #15 tabs 05/22/22 [Rx Last Taken Unknown] lorazepam 1 mg tablet (Ativan) 1 mg PO TID PRN anxiety #10 tabs 05/24/22 [Rx Last Taken Unknown] Allergy/AdvReac Type Severity Reaction Status Date / Time No Known Allergies Allergy Verified 07/06/22 20:12 Social History Smoking Status: Current every day smoker tobacco type: e-cigarettes substance use type: marijuana ROS ROS ED Review of Systems ROS Unobtainable: other Constitutional Constitutional ED: Reports lethargy; Denies chills, fever(s), sweats or weight loss Eyes Eyes: Denies blurry vision, change in vision or diplopia ENT ENT ED: Denies rhinorrhea or sore throat Cardiovascular Cardiovascular: Reports chest pain and racing heartbeat; Denies orthopnea Respiratory/Chest Respiratory/Chest: Reports dyspnea and dyspnea on exertion; Denies cough, orthopnea or sputum Gastrointestinal Gastrointestinal: Reports nausea and vomiting; Denies abdominal pain or diarrhea Genitourinary Genitourinary ED: Denies dysuria, hematuria or urinary frequency Musculoskeletal Musculoskeletal: Denies arthralgias, back pain, myalgias or neck pain Integumentary Denies abscess, Abrasions or rash Neurologic Neurologic: Denies headache(s) or weakness Psychiatric Psychiatric: Denies anxiety, depression or suicidal thoughts Endocrine Endocrinology: Denies polydipsia, polyphagia or polyuria Hematologic/Lymphatic Hematologic/Lymphatic: Denies easy bleeding, easy bruising or lymphadenopathy Allergic/Immunologic Allergic/Immunologic ED: Denies mouth swelling, tongue swelling or urticaria EXAM Physical Exam Const Vital Signs: 07/06/22 20:12 Temperature 96.8 F L Temperature Source Temporal Pulse Rate 115 H Respiratory Rate 18 Blood Pressure 134/78 H Blood Pressure Mean 96 Pulse Ox 99 Oxygen Delivery Method Room Air Positive well nourished and well developed General Appearance ED: well developed and NAD HEENT Reports TM's clear and moist mucous membranes normocephalic and atraumatic; Negative for trauma or tenderness Tympanic Membrane ED: Yes TM's clear Eyes PERRL and EOMs intact bilaterally General Eye ED: Negative for pale conjunctiva or scleral icterus Neck no lymphadenopathy, supple and no JVD General: Negative for tenderness Chest Wall inspection of chest normal and palpation of chest normal Chest: Negative for tenderness Resp normal respiratory effort and clear to auscultation bilaterally Effort and Inspection: Negative for respiratory distress or pain with movement Auscultation: Negative for rhonchi, wheezes or diminished lung sounds Cardio regular rate, regular rhythm, S1 normal heart sound, S2 normal heart sound and no murmurs Peripheral Pulses: pulses 2+ throughout GI normal to inspection, nondistended, normoactive bowel sounds, soft to palpation, non-tender, non-distended and no masses Back/Spine no CVA tenderness and no thoracic nor lumbar tenderness Extremity normal to inspection General Extremety ED: Negative for edema General Extremity: Negative for edema Neuro oriented x3, CN's II-XII intact bilaterally, no sensory deficits noted and gait normal Sensorium / Orientation: awake, alert, oriented to person, oriented to place and oriented to time Motor Exam: strength 5/5 throughout and strength abnormal Psych mental status grossly normal Skin no rashes or lesions noted and no wounds MDM MDM MDM Narrative Medical decision making narrative: Patient was given Ativan 1 mg p.o. as well as Zofran 4 mg ODT. Patient spoke with the counseling center and will have outpatient follow-up. Patient is comfortable going home and feels improved. Discharge Plan Triage Chief Complaint: Mental Health ED Provider: Darrin Wright Dx/Rx/DC Orders Clinical Impression: Anxiety Instructions: ED Anxiety Reaction Prescriptions: No Action ondansetron 4 mg tablet,disintegrating 4 mg PO Q6H PRN (Reason: nausea and vomiting) Qty: 10 0RF famotidine 20 mg tablet 2 mg PO DAILY Label Comments: TAKE 1 TABLET BY MOUTH TWICE A DAY lorazepam [Ativan] 0.5 mg tablet 0.5 mg PO PRN PRN (Reason: Anxiety) Label Comments: TAKE 1 TABLET BY MOUTH TWICE DAILY NEEDED FOR UP TO 30 DAYS. duloxetine 20 mg capsule,delayed release(DR/EC) 20 mg PO DAILY Label Comments: TAKE 1 CAPSULE BY MOUTH ONCE DAILY hydroxyzine pamoate [Vistaril] 25 mg capsule 25 mg PO TID PRN (Reason: anxiety) Qty: 20 0RF ondansetron HCl 4 mg tablet 4 mg PO Q6H PRN (Reason: nausea and vomiting) Qty: 15 0RF lorazepam [Ativan] 1 mg tablet 1 mg PO TID PRN (Reason: anxiety) Qty: 10 0RF Primary Care Provider: Wilfred Nova Referrals: Wilfred Nova DO [Primary Care Provider] - Activity Restrictions/Additional Instructions: Follow-up with counseling center as advised Disposition Disposition: Home, Self Care
--- NOTE | 2022-07-06 21:18 | ED.RN ---
crisis called to set up outpatient services for the patient at this time
[2022-07-06] MEDS: Ondansetron ODT 4 MG Tablet PO (21:24)
[2022-07-06] MEDS: LORazepam 1 MG Tablet PO (21:40)
--- NOTE | 2022-07-06 22:41 | ED.RN ---
crisis will follow up with patient, they will set up appt outpatient and referred patient IOP. They will reach out next week with additional sources to patient
== END 2022-07-06 22:43 | disposition home or self-care (01) ==
PROVIDERS: Emergency Provider Emergency Medicine; PCP Student in an Organized Health Care Education/Training Program; Visit Provider Emergency Medicine
DX: F41.9 Anxiety disorder, unspecified (principal); F17.290 Nicotine dependence, other tobacco product, uncomplicated; Z79.899 Other long term (current) drug therapy
CPT/HCPCS: 99283

== ENCOUNTER 2022-07-22 02:42 | Emergency (ER) | payer BC, SELFPAY ==
[2022-07-22 02:43] VITALS: BP 144/99; PULSE 115; RESP 22; TEMP 36.3; O2SAT 99; BMI 24.0
[2022-07-22] MEDS: LORazepam 2 MG/ML Syringe IM (04:40)
--- NOTE | 2022-07-22 04:56 | EX.ED.DYSGE1 ---
HPI History of Present Illness Chief Complaint: Anxiety Narrative Narrative: Patient is a 22-year-old female with past medical history of anxiety. She states she is tried multiple medications in the past for anxiety which have not controlled her symptoms. She states she also vomits frequently which she hates to do and this stimulates her anxiety. Patient states that last night/this morning she had a bout of emesis and afterwards began to become very anxious. She states she is try to control her symptoms at home over the past few hours but they seem to be worsening and secondary to this she comes in for evaluation. She denies any homicidal or suicidal ideations [facility] Medical History Generalized anxiety disorder Major depressive disorder, single episode, severe without psychosis Marijuana use Panic disorder Home Medications ondansetron 4 mg disintegrating tablet 4 mg PO Q6H PRN nausea and vomiting #10 tabs 01/08/22 [Rx Last Taken Unknown] duloxetine 20 mg capsule,delayed release 20 mg PO DAILY 03/18/22 [History Last Taken Unknown] famotidine 20 mg tablet 2 mg PO DAILY 03/18/22 [History Last Taken Unknown] lorazepam 0.5 mg tablet (Ativan) 0.5 mg PO PRN PRN Anxiety 03/18/22 [History Last Taken Unknown] hydroxyzine pamoate 25 mg capsule (Vistaril) 25 mg PO TID PRN anxiety #20 caps 05/22/22 [Rx Last Taken Unknown] ondansetron HCl 4 mg tablet 4 mg PO Q6H PRN nausea and vomiting #15 tabs 05/22/22 [Rx Last Taken Unknown] lorazepam 1 mg tablet (Ativan) 1 mg PO TID PRN anxiety #10 tabs 05/24/22 [Rx Last Taken Unknown] buspirone 7.5 mg tablet 7.5 mg PO BID 30 days #60 tabs 07/22/22 [Rx Last Taken Unknown] Allergy/AdvReac Type Severity Reaction Status Date / Time No Known Allergies Allergy Verified 07/06/22 20:12 Social History Smoking Status: Current every day smoker tobacco type: e-cigarettes substance use type: marijuana ROS ROS ED Constitutional Constitutional ED: Denies chills or fever(s) ENT ENT ED: Denies sore throat Cardiovascular Cardiovascular: Denies chest pain Respiratory/Chest Respiratory/Chest: Denies cough or dyspnea Gastrointestinal Gastrointestinal: Reports nausea and vomiting; Denies abdominal pain or diarrhea Genitourinary Genitourinary ED: Reports other Details: Patient denies concern for ; Denies dysuria Musculoskeletal Musculoskeletal: Denies myalgias Integumentary Denies rash Neurologic Neurologic: Denies headache(s) Psychiatric Psychiatric: Reports anxiety; Denies suicidal ideation or suicidal thoughts Hematologic/Lymphatic Hematologic/Lymphatic: Denies easy bleeding or easy bruising EXAM Physical Exam Const Vital Signs: 07/22/22 02:43 07/22/22 05:01 Temperature 97.3 F L Temperature Source Temporal Pulse Rate 115 H 75 Respiratory Rate 22 H 16 Blood Pressure 144/99 H 115/63 Blood Pressure Mean 114 Pulse Ox 99 100 Oxygen Delivery Method Room Air Positive well nourished and well developed General Appearance ED: well developed HEENT Reports moist mucous membranes Eyes PERRL and EOMs intact bilaterally Neck supple Resp normal respiratory effort and clear to auscultation bilaterally Cardio regular rate and regular rhythm GI normal to inspection, nondistended, normoactive bowel sounds, non-tender, non-distended and no masses Auscultation: normoactive bowel sounds Palpation: soft Extremity normal to inspection Neuro oriented x3 and CN's II-XII intact bilaterally Sensorium / Orientation: alert Psych Psych Narrative: Patient has a tearful/anxious affect Skin no rashes or lesions noted MDM MDM MDM Narrative Medical decision making narrative: Patient arrived to the ER tearful and anxious and had vital signs consistent with this. She reported a longstanding history of anxiety and bouts of vomiting and her exam did not show any type of surgical or acute abdomen. Therefore at this time as patient has a longstanding history of these events and her exam is nonfocal I do not feel there is need for work-up. Also she has no homicidal or suicidal ideation there is no need for psychiatric referral. Patient was given IM Ativan and had resolution of her anxiety. She has never tried BuSpar therefore she will be placed on 15 mg daily to see if this helps control her symptoms. However at this time with resolution of symptoms and no need for psychiatric referral she is otherwise safe for discharge Discharge Plan Triage Chief Complaint: Anxiety ED Provider: Heladio Ahumada Dx/Rx/DC Orders Clinical Impression: Anxiety, Cyclical vomiting Instructions: Understanding Anxiety Disorders, ED Anxiety Reaction Prescriptions: New buspirone 7.5 mg tablet 7.5 mg PO BID 30 Days Qty: 60 0RF No Action ondansetron 4 mg tablet,disintegrating 4 mg PO Q6H PRN (Reason: nausea and vomiting) Qty: 10 0RF famotidine 20 mg tablet 2 mg PO DAILY Label Comments: TAKE 1 TABLET BY MOUTH TWICE A DAY lorazepam [Ativan] 0.5 mg tablet 0.5 mg PO PRN PRN (Reason: Anxiety) Label Comments: TAKE 1 TABLET BY MOUTH TWICE DAILY NEEDED FOR UP TO 30 DAYS. duloxetine 20 mg capsule,delayed release(DR/EC) 20 mg PO DAILY Label Comments: TAKE 1 CAPSULE BY MOUTH ONCE DAILY hydroxyzine pamoate [Vistaril] 25 mg capsule 25 mg PO TID PRN (Reason: anxiety) Qty: 20 0RF ondansetron HCl 4 mg tablet 4 mg PO Q6H PRN (Reason: nausea and vomiting) Qty: 15 0RF lorazepam [Ativan] 1 mg tablet 1 mg PO TID PRN (Reason: anxiety) Qty: 10 0RF Stand Alone Forms: ED Work / School Excuse Primary Care Provider: Wilfred Nova Referrals: Wilfred Nova DO [Primary Care Provider] - Disposition Disposition: Home, Self Care Discharge Date/Time: 07/22/22 05:01
[2022-07-22 05:01] VITALS: BP 115/63; PULSE 75; RESP 16; O2SAT 100
== END 2022-07-22 05:01 | disposition home or self-care (01) ==
PROVIDERS: Emergency Provider Emergency Medicine; PCP Student in an Organized Health Care Education/Training Program; Visit Provider Emergency Medicine
DX: F41.9 Anxiety disorder, unspecified (principal); F17.290 Nicotine dependence, other tobacco product, uncomplicated; R11.15 Cyclical vomiting syndrome unrelated to migraine; F32.9 Major depressive disorder, single episode, unspecified; Z79.899 Other long term (current) drug therapy
CPT/HCPCS: 96372; 99282

== ENCOUNTER 2022-11-28 10:35 | Emergency (ER) | payer BC, SELFPAY ==
[2022-11-28 10:36] VITALS: PULSE 125; RESP 18; TEMP 36.3; O2SAT 97; BMI 22.4
--- NOTE | 2022-11-28 10:48 | EDS_ITS ---
HPI HPI - Psych History of Present Illness Chief Complaint: Anxiety Informant: patient Narrative Narrative: Patient states she is having a panic/anxiety attack, she states I have not been to the ER for this in a long time. Similar to prior anxiety attacks. She was in an intensive outpatient program at 1 point and doing therapy for this which really helped but she lapsed, and she has not been to anyone in a while. She saw her PCP for routine follow-up appointment recently. She did try a prophylactic anxiety medication last year but only took it for 3 weeks and then stopped, she states that she is not good with taking pills. This morning she woke up this way. She had it coming on last night, she had racing thoughts and some trouble sleeping, she states she is not perseverating about anything in particular, she moved into a new apartment lately which is the biggest stressor but otherwise she does not have a major stressor or major trigger for this. She states that it happened like this before. She tried taking Vistaril this morning but vomited it up. [facility] Medical History Generalized anxiety disorder Major depressive disorder, single episode, severe without psychosis Marijuana use Panic disorder Home Medications ondansetron 4 mg disintegrating tablet 4 mg PO Q6H PRN nausea and vomiting #10 tabs 01/08/22 [Rx Last Taken Unknown] duloxetine 20 mg capsule,delayed release 20 mg PO DAILY 03/18/22 [History Last Taken Unknown] famotidine 20 mg tablet 2 mg PO DAILY 03/18/22 [History Last Taken Unknown] lorazepam 0.5 mg tablet (Ativan) 0.5 mg PO PRN PRN Anxiety 03/18/22 [History Last Taken Unknown] hydroxyzine pamoate 25 mg capsule (Vistaril) 25 mg PO TID PRN anxiety #20 caps 05/22/22 [Rx Last Taken Unknown] ondansetron HCl 4 mg tablet 4 mg PO Q6H PRN nausea and vomiting #15 tabs 05/22/22 [Rx Last Taken Unknown] lorazepam 1 mg tablet (Ativan) 1 mg PO TID PRN anxiety #10 tabs 05/24/22 [Rx Last Taken Unknown] buspirone 7.5 mg tablet 7.5 mg PO BID 30 days #60 tabs 07/22/22 [Rx Last Taken Unknown] Allergy/AdvReac Type Severity Reaction Status Date / Time No Known Allergies Allergy Verified 11/28/22 10:37 Social History Smoking Status: Current every day smoker tobacco type: e-cigarettes substance use type: marijuana ROS ROS ED Constitutional Constitutional ED: Denies chills or fever(s) Eyes Eyes: Denies change in vision or diplopia ENT ENT ED: Denies rhinorrhea or sore throat Cardiovascular Cardiovascular: Denies chest pain or palpitations Respiratory/Chest Respiratory/Chest: Denies cough or dyspnea Gastrointestinal Gastrointestinal: Reports nausea and vomiting; Denies abdominal pain or diarrhea Genitourinary Genitourinary ED: Denies dysuria or hematuria Musculoskeletal Musculoskeletal: Denies back pain or neck pain Integumentary Denies abscess or rash Neurologic Neurologic: Denies headache(s), paresthesias or weakness Psychiatric Psychiatric: Reports anxiety; Denies suicidal thoughts EXAM Physical Exam Const Vital Signs: 11/28/22 10:36 Temperature 97.3 F L Temperature Source Temporal Pulse Rate 125 H Respiratory Rate 18 Pulse Ox 97 Oxygen Delivery Method Room Air Positive well nourished and well developed Constitutional Narrative: Acutely panicking but no physical distress General Appearance ED: well developed HEENT Reports moist mucous membranes normocephalic and atraumatic Eyes PERRL and EOMs intact bilaterally Neck full ROM and supple Resp normal respiratory effort and clear to auscultation bilaterally Resp Narrative: Hyperventilating. Equal breath sounds bilaterally, trachea midline. Normal phonation. Cardio regular rate, regular rhythm and no murmurs Rate: tachycardic GI non-tender and non-distended Auscultation: normoactive bowel sounds Palpation: soft Back/Spine no CVA tenderness General Back: other FROM Extremity normal to inspection General Extremety ED: Negative for edema, pulses abnormal or tenderness General Extremity: Negative for edema or pulses abnormal Neuro oriented x3, CN's II-XII intact bilaterally and no sensory deficits noted Sensorium / Orientation: awake and alert Motor Exam: strength 5/5 throughout Psych Psych Narrative: Extremely anxious, actively having panic attack, borderline hysterical. Redirectable with conversation and able to slow her breathing down and be more calm and discussing things. Skin no rashes or lesions noted and no wounds MDM MDM MDM Narrative Medical decision making narrative: Patient given Ativan 1 mg IM at her request after declining oral medication because I vomited up the Vistaril earlier. I also gave her a Zofran ODT. On reevaluation she is calm, but occasionally coughing and nearly gagging, almost appearing like she is trying to vomit. She clearly is better with regards to her anxiety and stable for discharge home. She has a history of cyclic vomiting, she has a care plan here. I am not prescribing her any benzos, follow-up advised. Discharge Plan Triage Chief Complaint: Anxiety ED Provider: Shorty Theodore Dx/Rx/DC Orders Clinical Impression: Anxiety attack, BENOIT (generalized anxiety disorder) Instructions: Anxiety Disorders Tx Prescriptions: No Action ondansetron 4 mg tablet,disintegrating 4 mg PO Q6H PRN (Reason: nausea and vomiting) Qty: 10 0RF famotidine 20 mg tablet 2 mg PO DAILY Label Comments: TAKE 1 TABLET BY MOUTH TWICE A DAY lorazepam [Ativan] 0.5 mg tablet 0.5 mg PO PRN PRN (Reason: Anxiety) Label Comments: TAKE 1 TABLET BY MOUTH TWICE DAILY NEEDED FOR UP TO 30 DAYS. duloxetine 20 mg capsule,delayed release(DR/EC) 20 mg PO DAILY Label Comments: TAKE 1 CAPSULE BY MOUTH ONCE DAILY hydroxyzine pamoate [Vistaril] 25 mg capsule 25 mg PO TID PRN (Reason: anxiety) Qty: 20 0RF ondansetron HCl 4 mg tablet 4 mg PO Q6H PRN (Reason: nausea and vomiting) Qty: 15 0RF lorazepam [Ativan] 1 mg tablet 1 mg PO TID PRN (Reason: anxiety) Qty: 10 0RF buspirone 7.5 mg tablet 7.5 mg PO BID 30 Days Qty: 60 0RF Primary Care Provider: Wilfred Nova Referrals: Wilfred Nova, [Primary Care Provider] - As soon as possible (Or your therapist/counselor) Disposition Disposition: Home, Self Care
[2022-11-28] MEDS: Ondansetron ODT 4 MG Tablet 8 MG PO (10:51)
[2022-11-28] MEDS: LORazepam 2 MG/ML Syringe 1 MG IM (10:52)
--- NOTE | 2022-11-28 10:59 | CM.ED ---
Social Work Note Referral Source: Case Find Referral Reason: ED Care Plan SW met with MD Theodore and discussed patient's care plan to review potential obstacles as well as available solutions and resources. MD reported an understanding and reviewed current resources patient is engaged well. MD declining SW involvement at this time but will consult SW if needs arise. Mariah Taveras TYPE MAPPER, BUDDY
[2022-11-28 11:49] VITALS: BP 108/62; PULSE 77; RESP 16; O2SAT 99
== END 2022-11-28 11:50 | disposition home or self-care (01) ==
PROVIDERS: Emergency Provider Emergency Medicine; PCP Student in an Organized Health Care Education/Training Program; Referring Provider Emergency Medicine; Visit Provider Emergency Medicine
DX: F41.1 Generalized anxiety disorder (principal); F17.290 Nicotine dependence, other tobacco product, uncomplicated; F12.90 Cannabis use, unspecified, uncomplicated
CPT/HCPCS: 96372; 99283

== ENCOUNTER 2023-04-15 07:19 | Emergency (ER) | payer BC, SELFPAY ==
[2023-04-15 07:20] VITALS: BP 144/77; PULSE 84; RESP 16; TEMP 36.1; O2SAT 100
--- NOTE | 2023-04-15 08:00 | EDS_ITS ---
HPI History of Present Illness Chief Complaint: Anxiety Informant: patient Onset/Context/Timing Onset: Today Context: Sudden Onset Timing: Continuous Quality: Anxious Location: Generalized Worsened by: Nothing Relieved by: Nothing Narrative Narrative: Patient presents with anxiety, nausea, and vomiting that began today. Patient states this feels similar to prior anxiety attacks. Patient denies any suicidal or homicidal ideations. Patient states nothing seems to make her symptoms any better or worse. Patient denies any specific triggers. Patient admits to some shortness of breath. Patient also admits to some subjective chills. Patient denies any back pain. Patient denies any chest pain. [facility] Medical History Generalized anxiety disorder Major depressive disorder, single episode, severe without psychosis Marijuana use Panic disorder Home Medications ondansetron 4 mg disintegrating tablet 4 mg PO Q6H PRN nausea and vomiting #10 tabs 01/08/22 [Rx Last Taken Unknown] duloxetine 20 mg capsule,delayed release 20 mg PO DAILY 03/18/22 [History Last Taken Unknown] famotidine 20 mg tablet 2 mg PO DAILY 03/18/22 [History Last Taken Unknown] lorazepam 0.5 mg tablet (Ativan) 0.5 mg PO PRN PRN Anxiety 03/18/22 [History Last Taken Unknown] hydroxyzine pamoate 25 mg capsule (Vistaril) 25 mg PO TID PRN anxiety #20 caps 05/22/22 [Rx Last Taken Unknown] ondansetron HCl 4 mg tablet 4 mg PO Q6H PRN nausea and vomiting #15 tabs 05/22/22 [Rx Last Taken Unknown] lorazepam 1 mg tablet (Ativan) 1 mg PO TID PRN anxiety #10 tabs 05/24/22 [Rx Last Taken Unknown] buspirone 7.5 mg tablet 7.5 mg PO BID 30 days #60 tabs 07/22/22 [Rx Last Taken Unknown] hydroxyzine pamoate 25 mg capsule 25 mg PO TID PRN PRN Anxiety #30 CAPSULES 04/15/23 [Rx Last Taken Unknown] Allergy/AdvReac Type Severity Reaction Status Date / Time No Known Allergies Allergy Verified 04/15/23 07:20 Social History Smoking Status: Current every day smoker tobacco type: e-cigarettes substance use type: marijuana ROS ROS ED Constitutional Constitutional ED: Reports chills and subjective; Denies fever(s) Eyes Eyes: Denies blurry vision or change in vision ENT ENT ED: Reports rhinorrhea; Denies sore throat Cardiovascular Cardiovascular: Denies chest pain or palpitations Respiratory/Chest Respiratory/Chest: Reports dyspnea; Denies cough Gastrointestinal Gastrointestinal: Reports nausea and vomiting Genitourinary Genitourinary ED: Denies dysuria or hematuria Musculoskeletal Musculoskeletal: Denies back pain or neck pain Integumentary Denies abscess or rash Neurologic Neurologic: Denies headache(s) or weakness Psychiatric Psychiatric: Reports anxiety; Denies suicidal ideation or suicidal thoughts Allergic/Immunologic Allergic/Immunologic ED: Denies mouth swelling or urticaria EXAM Physical Exam Const Vital Signs: 04/15/23 07:20 Temperature 96.9 F L Temperature Source Temporal Pulse Rate 84 Respiratory Rate 16 Blood Pressure 144/77 H Blood Pressure Mean 99 Pulse Ox 100 Oxygen Delivery Method Room Air Positive well nourished and well developed General Appearance ED: well developed HEENT Reports moist mucous membranes Neck supple and no JVD Resp normal respiratory effort and clear to auscultation bilaterally Cardio regular rate, regular rhythm and no murmurs GI normal to inspection, nondistended, normoactive bowel sounds Palpation: soft and tender epigastric, LLQ, RLQ, LUQ, RUQ, periumbilical and suprapubic; Negative for guarding or rebound tenderness present Extremity normal to inspection General Extremety ED: Negative for edema or tenderness General Extremity: Negative for edema Neuro oriented x3, CN's II-XII intact bilaterally and no sensory deficits noted Sensorium / Orientation: alert Motor Exam: strength 5/5 throughout Psych Mood & Affect: anxious Skin no rashes or lesions noted MDM MDM MDM Narrative Medical decision making narrative: Differential diagnosis includes anxiety, gastroenteritis, pancreatitis, and peptic ulcer disease. CBC will be obtained to assess for leukocytosis and an emia. Comprehensive metabolic profile will be obtained to assess for hepatic function, renal function, and electrolyte abnormality. Lipase will be obtained to assess for pancreatitis. Serum hCG will be obtained to assess for . Lab Data Attestation: I reviewed the patient's lab results. Lab results narrative: CBC was reviewed. There is a mild leukocytosis of 14.2. The remainder is within normal limits. Comprehensive metabolic profile was reviewed and was essentially within normal limits. Lipase was reviewed and was negative. Serum hCG was reviewed and was negative. Labs: Laboratory Results - last 24 hr 04/15/23 08:40 WBC 14.2 H RBC 4.51 Hgb 14.1 Hct 40.8 MCV 90.5 MCH 31.3 MCHC 34.6 RDW Std Deviation 41.2 RDW Coeff of Mario 12.4 Plt Count 314 MPV 10.2 Immature Gran % (Auto) 0.500 Neut % (Auto) 80.4 H Lymph % (Auto) 14.0 L Mckinley % (Auto) 4.2 Eos % (Auto) 0.5 Baso % (Auto) 0.4 Absolute Neuts (auto) 11.4 H Absolute Lymphs (auto) 1.99 Nucleated RBC % 0 Sodium 141 Potassium 3.6 Chloride 110 H Carbon Dioxide 24.0 Anion Gap 7 BUN 9 Creatinine 0.86 Est GFR (MDRD) Af Amer 107 Est GFR (MDRD) Non-Af 88 BUN/Creatinine Ratio 10.5 Glucose 125 H Calcium 9.3 Total Bilirubin 0.50 AST 14 L ALT 16 Alkaline Phosphatase 92 Total Protein 7.9 Albumin 4.3 Globulin 3.6 Albumin/Globulin Ratio 1.2 Lipase 36 Serum , Qual NEGATIVE Treatment and Re-Evaluation :: Patient was given a dose of Ativan here. Patient was advised of her findings. Patient is feeling somewhat better on reevaluation. Patient was given a dose of Vistaril prior to discharge. Patient was instructed to follow-up with her primary care physician in 5 to 7 days. Patient was given a prescription for a short course of Vistaril to take as needed. Patient understood and was agreeable with the plan. All questions were answered. Discharge Plan Triage Chief Complaint: Anxiety ED Provider: Zafar Marrero Dx/Rx/DC Orders Clinical Impression: Acute anxiety, Nausea and vomiting Instructions: ED Panic Attack Prescriptions: New hydroxyzine pamoate [hydroxyzine pamoate] 25 mg capsule 25 mg PO TID PRN PRN (Reason: Anxiety) Qty: 30 0RF No Action ondansetron 4 mg tablet,disintegrating 4 mg PO Q6H PRN (Reason: nausea and vomiting) Qty: 10 0RF famotidine 20 mg tablet 2 mg PO DAILY Patient Comments: TAKE 1 TABLET BY MOUTH TWICE A DAY lorazepam [Ativan] 0.5 mg tablet 0.5 mg PO PRN PRN (Reason: Anxiety) Patient Comments: TAKE 1 TABLET BY MOUTH TWICE DAILY NEEDED FOR UP TO 30 DAYS. duloxetine 20 mg capsule,delayed release(DR/EC) 20 mg PO DAILY Patient Comments: TAKE 1 CAPSULE BY MOUTH ONCE DAILY hydroxyzine pamoate [Vistaril] 25 mg capsule 25 mg PO TID PRN (Reason: anxiety) Qty: 20 0RF ondansetron HCl 4 mg tablet 4 mg PO Q6H PRN (Reason: nausea and vomiting) Qty: 15 0RF lorazepam [Ativan] 1 mg tablet 1 mg PO TID PRN (Reason: anxiety) Qty: 10 0RF buspirone 7.5 mg tablet 7.5 mg PO BID 30 Days Qty: 60 0RF Primary Care Provider: Wilfred Nova Referrals: Wilfred Nova DO [Primary Care Provider] - 3-5 Days Disposition Disposition: Home, Self Care
[2023-04-15] MEDS: LORazepam 2 MG/ML Syringe 1 MG IV (08:45)
[2023-04-15] MEDS: 0.9% Normal Saline 1,000 ML 1000 ML IV (08:45)
[2023-04-15] MEDS: Ondansetron 4 MG/2 ML Vial IV (08:45)
[2023-04-15 08:52] LABS: Absolute Lymphocyte Count 1.99 X10^3/uL (0.83-4.51); Absolute Neutrophil Count 11.4 X10^3/uL (2.0-7.7); Basophil# 0.05 X10^3/uL; Basophil% 0.4 % (0-1); Eosinophil# 0.07 X10^3/uL; Eosinophils% 0.5 % (0-5); Hematocrit 40.8 % (37-47); Hemoglobin 14.1 g/dL (12.0-15.0); Lymphocyte # 1.99 X10^3/ul (0.83-4.51); Mean Corp Hgb Conc 34.6 g/dL (32-36); Mean Corpuscular Hgb 31.3 pg (27.0-32.0); Mean Corpuscular Volume 90.5 fL (81-99); Mean Platelet Vol. 10.2 fl (6.2-12.0); Monocyte# 0.59 X10^3/uL; Monocyte% 4.2 % (0-10); NRBC Flagged by Analyzer 0 % (0-5); Neutrophil % 80.4 % (47-70); Platelet Count 314 K/mm3 (150-450); RBC Distribution Width CV 12.4 % (11.6-14.6); RBC Distribution Width SD 41.2 fl (35.1-43.9); Red Blood Count 4.51 M/mm3 (4.2-5.4); White Blood Count 14.2 K/mm3 (4.4-11.0)
[2023-04-15 09:08] LABS: ALB/GLOB Ratio 1.2 RATIO (0.9-2.4); AST(SGOT) 14 U/L (15-37); Alanine Aminotransfer ALT/SGPT 16 U/L (13-56); Albumin, Serum 4.3 g/dL (3.2-5.0); Alkaline Phosphatase 92 U/L (45-117); Anion Gap 7 (5-15); BUN 9 mg/dL (7-18); BUN/Creat Ratio 10.5 RATIO (10-20); Calcium,Total 9.3 mg/dL (8.5-10.1); Chloride 110 mmol/L (98-107); Creatinine, Serum 0.86 mg/dL (0.55-1.02); EST Glomerular Filtration Rate 88 mL/min (>60); Est Glom Filt Rate - Afr Amer 107 mL/min (>60); Globulin 3.6 g/dL (2.2-4.2); Glucose 125 mg/dL (74-106); Lipase 36 U/L (13-75); Potassium 3.6 mmol/L (3.5-5.1); Protein, Total 7.9 g/dL (6.4-8.2); Sodium Level 141 mmol/L (136-145)
[2023-04-15 09:24] LABS: Internal QC Validated? YES +Cl - CLEAR BKGD; Pregnancy, Serum, hCG Quali. NEGATIVE Negative
[2023-04-15 10:12] VITALS: BP 129/73; PULSE 64; RESP 15; O2SAT 99
== END 2023-04-15 10:15 | disposition home or self-care (01) ==
PROVIDERS: Emergency Provider Emergency Medicine; PCP Student in an Organized Health Care Education/Training Program; Visit Provider Emergency Medicine
DX: F41.9 Anxiety disorder, unspecified (principal); R11.2 Nausea with vomiting, unspecified; F12.90 Cannabis use, unspecified, uncomplicated; F17.290 Nicotine dependence, other tobacco product, uncomplicated
CPT/HCPCS: 80053; 83690; 84703; 85025; 96361; 96365; 96374; 96375; 99283; J7030; A4216; J2405

== ENCOUNTER 2023-04-15 23:37 | Emergency (ER) | payer BC, SELFPAY ==
[2023-04-15 23:39] VITALS: BP 130/83; PULSE 78; RESP 18; TEMP 36.7; O2SAT 97; BMI 20.6
--- NOTE | 2023-04-16 | EDS_ITS ---
HPI History of Present Illness Chief Complaint: Nausea/Vomiting Informant: patient Onset/Context/Timing Onset: Today Narrative Narrative: Patient returns to the ER secondary to continued nausea and vomiting. Patient was seen in the emergency room earlier today. It was felt that her nausea and vomiting was secondary to anxiety. She had been given Ativan in the ER and a dose of Vistaril. She was discharged with a prescription for Vistaril. Lab work was largely unremarkable. She states she took 1 dose of Vistaril after getting home but has continued to have nausea and vomiting. [facility] Medical History Generalized anxiety disorder Major depressive disorder, single episode, severe without psychosis Marijuana use Panic disorder Home Medications ondansetron 4 mg disintegrating tablet 4 mg PO Q6H PRN nausea and vomiting #10 tabs 01/08/22 [Rx Last Taken Unknown] duloxetine 20 mg capsule,delayed release 20 mg PO DAILY 03/18/22 [History Last Taken Unknown] famotidine 20 mg tablet 2 mg PO DAILY 03/18/22 [History Last Taken Unknown] lorazepam 0.5 mg tablet (Ativan) 0.5 mg PO PRN PRN Anxiety 03/18/22 [History Last Taken Unknown] hydroxyzine pamoate 25 mg capsule (Vistaril) 25 mg PO TID PRN anxiety #20 caps 05/22/22 [Rx Last Taken Unknown] ondansetron HCl 4 mg tablet 4 mg PO Q6H PRN nausea and vomiting #15 tabs 05/22/22 [Rx Last Taken Unknown] lorazepam 1 mg tablet (Ativan) 1 mg PO TID PRN anxiety #10 tabs 05/24/22 [Rx Last Taken Unknown] buspirone 7.5 mg tablet 7.5 mg PO BID 30 days #60 tabs 07/22/22 [Rx Last Taken Unknown] hydroxyzine pamoate 25 mg capsule 25 mg PO TID PRN PRN Anxiety #30 CAPSULES 04/15/23 [Rx Last Taken Unknown] ondansetron 4 mg disintegrating tablet 4 mg PO Q8H PRN PRN Nausea #10 tabs 04/16/23 [Rx Last Taken Unknown] Allergy/AdvReac Type Severity Reaction Status Date / Time No Known Allergies Allergy Verified 04/15/23 23:41 Social History Smoking Status: Current every day smoker tobacco type: e-cigarettes substance use type: marijuana ROS ROS ED Constitutional Constitutional ED: Reports chills; Denies fever(s) Eyes Eyes: Denies change in vision ENT ENT ED: Denies rhinorrhea or sore throat Cardiovascular Cardiovascular: Denies chest pain or palpitations Respiratory/Chest Respiratory/Chest: Denies cough or dyspnea Gastrointestinal Gastrointestinal: Reports abdominal pain, nausea and vomiting; Denies diarrhea Genitourinary Genitourinary ED: Denies dysuria Musculoskeletal Musculoskeletal: Denies back pain or extremity pain Integumentary Denies Abrasions or rash Neurologic Neurologic: Denies headache(s) or weakness Psychiatric Psychiatric: Reports anxiety; Denies depression Allergic/Immunologic Allergic/Immunologic ED: Denies lip swelling or urticaria EXAM Physical Exam Const Vital Signs: 04/15/23 23:39 Temperature 98.0 F Temperature Source Temporal Pulse Rate 78 Respiratory Rate 18 Blood Pressure 130/83 H Blood Pressure Mean 98 Pulse Ox 97 Oxygen Delivery Method Room Air Positive well nourished and well developed General Appearance ED: well developed HEENT Reports normocephalic and head/scalp atraumatic Eyes PERRL and EOMs intact bilaterally Neck supple Chest Wall inspection of chest normal and palpation of chest normal Resp normal respiratory effort and clear to auscultation bilaterally Cardio regular rate and regular rhythm GI GI Narrative: Abdomen soft with mild diffuse tenderness. No guarding or rebound. Palpation: soft Back/Spine no CVA tenderness Extremity normal to inspection Neuro oriented x3 and no sensory deficits noted Sensorium / Orientation: alert Motor Exam: strength 5/5 throughout Psych Mood & Affect: anxious Skin no rashes or lesions noted MDM MDM MDM Narrative Medical decision making narrative: Labwork from earlier today is reviewed. Patient is given IV fluids, Zofran, Protonix, and Ativan. Treatment and Re-Evaluation :: On repeat evaluation patient feeling much improved. She is tolerating ice chips without difficulty. She will be given a prescription for Zofran ODT. Return instructions given Discharge Plan Triage Chief Complaint: Nausea/Vomiting ED Provider: Raquel Casas Dx/Rx/DC Orders Clinical Impression: Nausea and vomiting Instructions: ED Vomiting (Adult) Prescriptions: New ondansetron 4 mg tablet,disintegrating 4 mg PO Q8H PRN PRN (Reason: Nausea) Qty: 10 0RF No Action ondansetron 4 mg tablet,disintegrating 4 mg PO Q6H PRN (Reason: nausea and vomiting) Qty: 10 0RF famotidine 20 mg tablet 2 mg PO DAILY Patient Comments: TAKE 1 TABLET BY MOUTH TWICE A DAY lorazepam [Ativan] 0.5 mg tablet 0.5 mg PO PRN PRN (Reason: Anxiety) Patient Comments: TAKE 1 TABLET BY MOUTH TWICE DAILY NEEDED FOR UP TO 30 DAYS. duloxetine 20 mg capsule,delayed release(DR/EC) 20 mg PO DAILY Patient Comments: TAKE 1 CAPSULE BY MOUTH ONCE DAILY hydroxyzine pamoate [Vistaril] 25 mg capsule 25 mg PO TID PRN (Reason: anxiety) Qty: 20 0RF ondansetron HCl 4 mg tablet 4 mg PO Q6H PRN (Reason: nausea and vomiting) Qty: 15 0RF lorazepam [Ativan] 1 mg tablet 1 mg PO TID PRN (Reason: anxiety) Qty: 10 0RF buspirone 7.5 mg tablet 7.5 mg PO BID 30 Days Qty: 60 0RF hydroxyzine pamoate [hydroxyzine pamoate] 25 mg capsule 25 mg PO TID PRN PRN (Reason: Anxiety) Qty: 30 0RF Primary Care Provider: Wilfred Nova Referrals: Wilfred Nova DO [Primary Care Provider] - 1-2 Weeks Disposition Disposition: Home, Self Care
[2023-04-16] MEDS: 0.9% Normal Saline 1,000 ML 1000 ML IV (00:09)
[2023-04-16] MEDS: Ondansetron 4 MG/2 ML Vial IV (00:10)
[2023-04-16] MEDS: LORazepam 2 MG/ML Syringe 0.5 MG IV (00:11)
== END 2023-04-16 02:09 | disposition home or self-care (01) ==
PROVIDERS: Emergency Provider Emergency Medicine; PCP Student in an Organized Health Care Education/Training Program; Visit Provider Emergency Medicine
DX: R11.2 Nausea with vomiting, unspecified (principal); F17.290 Nicotine dependence, other tobacco product, uncomplicated; F12.90 Cannabis use, unspecified, uncomplicated
CPT/HCPCS: 96365; 96375; 99283; A4216; J2405

== ENCOUNTER 2023-04-18 09:56 | Emergency (ER) | payer BC, SELFPAY ==
[2023-04-18 09:57] VITALS: BP 130/77; PULSE 77; RESP 14; TEMP 36.8; O2SAT 98; BMI 21.5
--- NOTE | 2023-04-18 10:19 | EX.ED.DYSGE1 ---
HPI History of Present Illness Chief Complaint: Anxiety [facility] Medical History Generalized anxiety disorder Major depressive disorder, single episode, severe without psychosis Marijuana use Panic disorder Home Medications ondansetron 4 mg disintegrating tablet 4 mg PO Q6H PRN nausea and vomiting #10 tabs 01/08/22 [Rx Last Taken Unknown] duloxetine 20 mg capsule,delayed release 20 mg PO DAILY 03/18/22 [History Last Taken Unknown] famotidine 20 mg tablet 2 mg PO DAILY 03/18/22 [History Last Taken Unknown] lorazepam 0.5 mg tablet (Ativan) 0.5 mg PO PRN PRN Anxiety 03/18/22 [History Last Taken Unknown] hydroxyzine pamoate 25 mg capsule (Vistaril) 25 mg PO TID PRN anxiety #20 caps 05/22/22 [Rx Last Taken Unknown] ondansetron HCl 4 mg tablet 4 mg PO Q6H PRN nausea and vomiting #15 tabs 05/22/22 [Rx Last Taken Unknown] lorazepam 1 mg tablet (Ativan) 1 mg PO TID PRN anxiety #10 tabs 05/24/22 [Rx Last Taken Unknown] buspirone 7.5 mg tablet 7.5 mg PO BID 30 days #60 tabs 07/22/22 [Rx Last Taken Unknown] hydroxyzine pamoate 25 mg capsule 25 mg PO TID PRN PRN Anxiety #30 CAPSULES 04/15/23 [Rx Last Taken Unknown] ondansetron 4 mg disintegrating tablet 4 mg PO Q8H PRN PRN Nausea #10 tabs 04/16/23 [Rx Last Taken Unknown] Allergy/AdvReac Type Severity Reaction Status Date / Time No Known Allergies Allergy Verified 04/18/23 09:57 Social History Smoking Status: Current every day smoker tobacco type: e-cigarettes substance use type: marijuana EXAM Physical Exam Const Vital Signs: 04/18/23 09:57 Temperature 98.2 F Temperature Source Temporal Pulse Rate 77 Respiratory Rate 14 Blood Pressure 130/77 H Blood Pressure Mean 94 Pulse Ox 98 Oxygen Delivery Method Room Air MDM MDM MDM Narrative Medical decision making narrative: HISTORY OF PRESENT ILLNESS: 22-year-old female here for anxiety nausea and vomiting. Notes she is prescribed Zofran and Atarax at home. States she did not fill Zofran prescription but did feel Atarax prescription. States she is working a lot does not make her priority. She states she feels scared and anxious. Denies any drug use. Denies any alcohol use. Denies any suicidal ideation, homicidal ideation. Denies any auditory visual hallucinations. REVIEW OF SYSTEMS: Pertinent positives: Anxiety, nausea Pertinent negatives: Suicidal ideation, homicidal ideation PHYSICAL EXAM: Nursing triage notes reviewed, Vital signs reviewed Constitutional: please see mdm HENT: MMM Eyes: Pupils equal round and reactive to light, Extraocular muscles intact Neck: No stridor, no JVD, full neck ROM Lungs: Clear to auscultation, No wheezing or rales. No increased work of breathing, no conversational dyspnea, no accessory muscle use, no nasal flaring. No respiratory distress noted Heart: Regular rate and rhythm, No murmurs, No rubs and No gallops, 2+ distal pulses (radial, femoral, posterior tibial) in all extremities Abdomen: Soft, there is no tenderness, rigidity, rebound or guarding, no obvious peritoneal signs, no palpable pulsatile abdominal masses, no auscultated abdominal bruit : No CVAT Extremities: No edema Neuro: No focal neurological deficits, cranial nerves II through XII intact, 5/5 strength in all extremities. Intact sensation to light touch in all extremities, 2+ reflexes bilateral patella tendons. Normal gait. No ataxia. Skin: No rash or lesions noted Psych: Appears anxious, cooperative, thought process, not tangential, not respond internal stimuli, appears well kept. MEDICAL DECISION MAKING: Chief Complaint: Anxiety External records reviewed: Prior ED visits reviewed. ED visit on 04/16/2023 for similar symptoms received Zofran was able tolerate p.o. and was discharged Factors affecting care: Anxiety Social determinants of health: Positive marijuana use History obtained from others: The patient's friend Consults: Behavioral health social work ALL IMAGES (IF OBTAINED) HAVE BEEN PERSONALLY REVIEWED AND INTERPRETED BY MYSELF. MDM Narrative: The patient was hemodynamically stable, afebrile, nontoxic-appearing. Patient. Anxious. She denies any suicidal homicidal ideations. She was given Zofran for nausea and Atarax for anxiety. She is able to tolerate p.o. here in the emergency department. She had no concerning life limb threatening psychiatric complaints. She is appropriate for discharge home with close outpatient follow-up. Outpatient follow was arranged by behavioral health social work lecturer. The patient and/or family, caregivers express understanding. The patient and/or family, caregivers agrees with the plan. Shared decision making: I will have a discussion with the patient and or visitors regarding risk/benefits of further testing or admission. They will be made aware of of the risk/benefits inherent in this decision they will be given the opportunity to voice understanding. Total critical care time today provided was at least 0 minutes. This excludes separately billable procedures. Critical care time (if documented) is secondary to the patient having high probability of clinically significant/life threatening deterioration in the patient's condition which required my urgent intervention. Discharge Plan Triage Chief Complaint: Anxiety ED Provider: Ignacio Murphy Dx/Rx/DC Orders Clinical Impression: Acute anxiety, Nausea and vomiting Instructions: Anxiety Disorders Tx, ED Vomiting (Adult) Prescriptions: No Action ondansetron 4 mg tablet,disintegrating 4 mg PO Q6H PRN (Reason: nausea and vomiting) Qty: 10 0RF famotidine 20 mg tablet 2 mg PO DAILY Patient Comments: TAKE 1 TABLET BY MOUTH TWICE A DAY lorazepam [Ativan] 0.5 mg tablet 0.5 mg PO PRN PRN (Reason: Anxiety) Patient Comments: TAKE 1 TABLET BY MOUTH TWICE DAILY NEEDED FOR UP TO 30 DAYS. duloxetine 20 mg capsule,delayed release(DR/EC) 20 mg PO DAILY Patient Comments: TAKE 1 CAPSULE BY MOUTH ONCE DAILY hydroxyzine pamoate [Vistaril] 25 mg capsule 25 mg PO TID PRN (Reason: anxiety) Qty: 20 0RF ondansetron HCl 4 mg tablet 4 mg PO Q6H PRN (Reason: nausea and vomiting) Qty: 15 0RF lorazepam [Ativan] 1 mg tablet 1 mg PO TID PRN (Reason: anxiety) Qty: 10 0RF buspirone 7.5 mg tablet 7.5 mg PO BID 30 Days Qty: 60 0RF hydroxyzine pamoate [hydroxyzine pamoate] 25 mg capsule 25 mg PO TID PRN PRN (Reason: Anxiety) Qty: 30 0RF ondansetron 4 mg tablet,disintegrating 4 mg PO Q8H PRN PRN (Reason: Nausea) Qty: 10 0RF Primary Care Provider: Wilfred Nova Referrals: Wilfred Nova DO [Primary Care Provider] - Activity Restrictions/Additional Instructions: Thank you for trusting us with your care today! Please take Tylenol (2 pills, 650 mg), ibuprofen (2 pills, 400 mg) every 6 hours as needed for pain and fever control. Please take Zofran as needed for nausea. Please take Atarax as needed for anxiety. Please return to the emergency department if your symptoms change or worsen. Please follow with outpatient psychiatric resources that have been provided for further outpatient evaluation and management. Disposition Disposition: Home, Self Care
[2023-04-18] MEDS: Ondansetron ODT 4 MG Tablet PO (11:13)
[2023-04-18] MEDS: hydrOXYzine 10 MG Tablet 25 MG PO (11:29)
[2023-04-18 11:40] VITALS: BP 132/77; PULSE 61; RESP 15; O2SAT 98
--- NOTE | 2023-04-18 22:22 | CM.ED ---
Social Work SW introduced self and role to patient. SW provided emotional support. Pt has had repeated ED visits for anxiety. SW discussed long-term plan rather than short-term solutions for anxiety. Pt provided with IOP resource and reports she completed the program before and it was helpful. Pt also given info for more community resources for counseling/psychiatry. Pt given coping skills handout. Pt frequently heaving and requesting medications and medical staff aware. Lucía Guzman MANAGER [employer], [employer] OFFICER
== END 2023-04-18 11:40 | disposition home or self-care (01) ==
LOC: ED 11:25
PROVIDERS: Emergency Provider Emergency Medicine; PCP Student in an Organized Health Care Education/Training Program; Visit Provider Emergency Medicine
DX: F41.9 Anxiety disorder, unspecified (principal); R11.2 Nausea with vomiting, unspecified; F12.90 Cannabis use, unspecified, uncomplicated; F17.290 Nicotine dependence, other tobacco product, uncomplicated
CPT/HCPCS: 99283

== ENCOUNTER 2023-05-13 07:28 | Emergency (ER) | payer BC, SELFPAY ==
[2023-05-13 07:29] VITALS: BP 132/81; PULSE 84; RESP 16; TEMP 36.4; O2SAT 98; BMI 22.6
--- NOTE | 2023-05-13 07:41 | EDS_ITS ---
HPI HPI - Psych History of Present Illness Chief Complaint: Anxiety Narrative Narrative: 22 old female past medical history of anxiety presents with panic attack and anxiety since Saturday, 3 days ago. She states it was worse on Saturday. She associates this with nausea and vomiting. While she was okay yesterday this morning she began having nausea and vomiting and threw up a handful of times. She states she did not take her hydroxyzine which she is prescribed for anxiety because she is afraid of vomiting it back up. She denies any suicidal ideation or auditory hallucinations. This is very similar to her previous panic attacks and anxiety. It is not over anything in particular. [facility] Medical History Generalized anxiety disorder Major depressive disorder, single episode, severe without psychosis Marijuana use Panic disorder Home Medications ondansetron 4 mg disintegrating tablet 4 mg PO Q6H PRN nausea and vomiting #10 tabs 01/08/22 [Rx Last Taken Unknown] duloxetine 20 mg capsule,delayed release 20 mg PO DAILY 03/18/22 [History Last Taken Unknown] famotidine 20 mg tablet 2 mg PO DAILY 03/18/22 [History Last Taken Unknown] lorazepam 0.5 mg tablet (Ativan) 0.5 mg PO PRN PRN Anxiety 03/18/22 [History Last Taken Unknown] hydroxyzine pamoate 25 mg capsule (Vistaril) 25 mg PO TID PRN anxiety #20 caps 05/22/22 [Rx Last Taken Unknown] ondansetron HCl 4 mg tablet 4 mg PO Q6H PRN nausea and vomiting #15 tabs 05/22/22 [Rx Last Taken Unknown] lorazepam 1 mg tablet (Ativan) 1 mg PO TID PRN anxiety #10 tabs 05/24/22 [Rx Last Taken Unknown] buspirone 7.5 mg tablet 7.5 mg PO BID 30 days #60 tabs 07/22/22 [Rx Last Taken Unknown] hydroxyzine pamoate 25 mg capsule 25 mg PO TID PRN PRN Anxiety #30 CAPSULES 04/15/23 [Rx Last Taken Unknown] ondansetron 4 mg disintegrating tablet 4 mg PO Q8H PRN PRN Nausea #10 tabs 04/16/23 [Rx Last Taken Unknown] Allergy/AdvReac Type Severity Reaction Status Date / Time No Known Allergies Allergy Verified 05/13/23 07:28 Social History Smoking Status: Current every day smoker tobacco type: e-cigarettes substance use type: marijuana ROS ROS ED ROS Narrative Constitutional: No fever, no chills. HEENT: No sore throat. No neck pain. No loss of vision. No rhinorrhea. Cardiovascular: No chest pain. No palpitations. No pedal edema. Respiratory: No cough, no shortness of breath. Abdominal: No abdominal pain. Positive nausea and vomiting. Genitourinary: No dysuria. No hematuria. Musculoskeletal: No myalgias. No arthralgias. Neurologic: No headaches. No dizziness. No lightheadedness. Skin: No rash. No change in color. Psychiatric: No depression. Positive anxiety EXAM Physical Exam Narrative Exam Narrative: Afebrile. Vital signs noted. HEENT: Normocephalic. Atraumatic. PERRL, EOMI. Neck soft and supple. No point tenderness or step off. Cardiovascular: Regular rate and rhythm. No murmurs, rubs, or gallops appreciated. Respiratory: No tachypnea. Lungs clear to auscultation bilaterally. Gastrointestinal: Abdomen soft, nontender, with normoactive bowel sounds. No rebound or guarding. Neurological: Awake. Alert. Nonfocal, nonlateralizing. Skin: No rash. Normal color. No pallor. Musculoskeletal: No pedal edema. Full range of motion extremities. Psychiatric: Starts hyperventilating and almost tearful on examination. No suicidal ideation. No active hallucinations. Const Vital Signs: 05/13/23 07:29 05/13/23 08:54 Temperature 97.6 F L Temperature Source Temporal Pulse Rate 84 70 Respiratory Rate 16 16 Blood Pressure 132/81 H 94/37 L Blood Pressure Mean 98 56 Pulse Ox 98 98 Oxygen Delivery Method Room Air Room Air MDM MDM MDM Narrative Medical decision making narrative: I reviewed the patient's prior records. She was here at the end of the month, and in the past she has received Ativan versus Zofran and Vistaril/Atarax which she is prescribed. I do not feel that laboratory testing is indicated. On her last visit she was seen by social work and cleared for outpatient management of her generalized anxiety disorder. She is also had diagnoses of cyclic vomiting and previous marijuana use. I do feel that a lot of this is related to her anxiety and panic attacks. She was given Ativan 1 mg intramuscularly along with Zofran 4 mg intramuscularly. Upon repeat examination at approximately 9:45 AM, she is feeling improved. She is less anxious. She states she has hydroxyzine and Zofran at home. At this point in time, I do feel she can be discharged safely home to follow-up with psychiatry/psychology. She was given references to Dr. Hale, and to the counseling center as needed. She can also follow-up with her primary care physician for referral. I do not feel she requires observation at this time. Disposition is discharged home in stable condition. Discharge Plan Triage Chief Complaint: Anxiety ED Provider: Dharmesh Seals Dx/Rx/DC Orders Clinical Impression: Anxiety, Panic attacks, Nausea and vomiting Instructions: ED Panic Attack, ED Vomiting (Adult) Prescriptions: No Action ondansetron 4 mg tablet,disintegrating 4 mg PO Q6H PRN (Reason: nausea and vomiting) Qty: 10 0RF famotidine 20 mg tablet 2 mg PO DAILY Patient Comments: TAKE 1 TABLET BY MOUTH TWICE A DAY lorazepam [Ativan] 0.5 mg tablet 0.5 mg PO PRN PRN (Reason: Anxiety) Patient Comments: TAKE 1 TABLET BY MOUTH TWICE DAILY NEEDED FOR UP TO 30 DAYS. duloxetine 20 mg capsule,delayed release(DR/EC) 20 mg PO DAILY Patient Comments: TAKE 1 CAPSULE BY MOUTH ONCE DAILY hydroxyzine pamoate [Vistaril] 25 mg capsule 25 mg PO TID PRN (Reason: anxiety) Qty: 20 0RF ondansetron HCl 4 mg tablet 4 mg PO Q6H PRN (Reason: nausea and vomiting) Qty: 15 0RF lorazepam [Ativan] 1 mg tablet 1 mg PO TID PRN (Reason: anxiety) Qty: 10 0RF buspirone 7.5 mg tablet 7.5 mg PO BID 30 Days Qty: 60 0RF hydroxyzine pamoate [hydroxyzine pamoate] 25 mg capsule 25 mg PO TID PRN PRN (Reason: Anxiety) Qty: 30 0RF ondansetron 4 mg tablet,disintegrating 4 mg PO Q8H PRN PRN (Reason: Nausea) Qty: 10 0RF Primary Care Provider: Wilfred Nova Referrals: Counseling,Center [Group of Physicians] - As soon as possible Wilfred Nova DO [Primary Care Provider] - As soon as possible Darrick Tinsley DO [Med Staff - Anode Machine Operator] - As soon as possible Activity Restrictions/Additional Instructions: Use your Zofran and your hydroxyzine as needed for your anxiety and panic attacks. Follow-up with psychiatry/counseling as soon as possible. Disposition Disposition: Home, Self Care
[2023-05-13] MEDS: Ondansetron 4 MG/2 ML Vial IM (07:46)
[2023-05-13] MEDS: LORazepam 2 MG/ML Syringe 1 MG IM (07:46)
[2023-05-13 08:54] VITALS: BP 94/37; PULSE 70; RESP 16; O2SAT 98
== END 2023-05-13 09:55 | disposition home or self-care (01) ==
PROVIDERS: Emergency Provider Emergency Medicine; PCP Student in an Organized Health Care Education/Training Program; Visit Provider Emergency Medicine
DX: F41.0 Panic disorder [episodic paroxysmal anxiety] (principal); F41.1 Generalized anxiety disorder; R11.2 Nausea with vomiting, unspecified; F17.210 Nicotine dependence, cigarettes, uncomplicated
CPT/HCPCS: 96372; 99282; J2405

== ENCOUNTER 2023-05-29 10:01 | Emergency (ER) | payer BC, SELFPAY ==
[2023-05-29 10:05] VITALS: BP 119/90; PULSE 92; RESP 14; TEMP 36.6; O2SAT 100; BMI 21.5
--- NOTE | 2023-05-29 10:51 | EDS_ITS ---
HPI History of Present Illness Chief Complaint: Anxiety Informant: patient Onset/Context/Timing Onset: Today and Hours (2) Context: Sudden Onset Timing: Continuous Quality: Anxious Location: Generalized Worsened by: Nothing Relieved by: Nothing Narrative Narrative: Patient presents with anxiety attack that began approximate 2 hours prior to arrival. Patient states she started having some nausea and vomiting this morning which caused her to have an anxiety attack. Patient states she feels anxious all over. Patient states nothing makes it better and nothing makes it worse. Patient states she feels short of breath and has some subjective chills. Patient states she has a history of anxiety disorder. Patient denies any chest pain or palpitations. Patient denies any urinary complaints. [facility] Medical History Generalized anxiety disorder Major depressive disorder, single episode, severe without psychosis Marijuana use Panic disorder Home Medications ondansetron 4 mg disintegrating tablet 4 mg PO Q6H PRN nausea and vomiting #10 tabs 01/08/22 [Rx Last Taken Unknown] duloxetine 20 mg capsule,delayed release 20 mg PO DAILY 03/18/22 [History Last Taken Unknown] famotidine 20 mg tablet 2 mg PO DAILY 03/18/22 [History Last Taken Unknown] lorazepam 0.5 mg tablet (Ativan) 0.5 mg PO PRN PRN Anxiety 03/18/22 [History Last Taken Unknown] hydroxyzine pamoate 25 mg capsule (Vistaril) 25 mg PO TID PRN anxiety #20 caps 05/22/22 [Rx Last Taken Unknown] ondansetron HCl 4 mg tablet 4 mg PO Q6H PRN nausea and vomiting #15 tabs 05/22/22 [Rx Last Taken Unknown] lorazepam 1 mg tablet (Ativan) 1 mg PO TID PRN anxiety #10 tabs 05/24/22 [Rx Last Taken Unknown] buspirone 7.5 mg tablet 7.5 mg PO BID 30 days #60 tabs 07/22/22 [Rx Last Taken Unknown] hydroxyzine pamoate 25 mg capsule 25 mg PO TID PRN PRN Anxiety #30 CAPSULES 04/15/23 [Rx Last Taken Unknown] ondansetron 4 mg disintegrating tablet 4 mg PO Q8H PRN PRN Nausea #10 tabs 05/29/23 [Rx Last Taken Unknown] Allergy/AdvReac Type Severity Reaction Status Date / Time No Known Allergies Allergy Verified 05/29/23 10:06 Social History Smoking Status: Current every day smoker tobacco type: e-cigarettes substance use type: marijuana ROS ROS ED Constitutional Constitutional ED: Reports chills; Denies fever(s) Eyes Eyes: Denies blurry vision or change in vision ENT ENT ED: Denies rhinorrhea or sore throat Cardiovascular Cardiovascular: Denies chest pain or palpitations Respiratory/Chest Respiratory/Chest: Reports dyspnea; Denies cough Gastrointestinal Gastrointestinal: Reports nausea and vomiting Genitourinary Genitourinary ED: Denies dysuria or hematuria Musculoskeletal Musculoskeletal: Denies back pain or neck pain Integumentary Denies abscess or rash Neurologic Neurologic: Denies headache(s) or weakness Psychiatric Psychiatric: Reports anxiety Allergic/Immunologic Allergic/Immunologic ED: Denies mouth swelling or urticaria EXAM Physical Exam Const Vital Signs: 05/29/23 10:05 Temperature 97.9 F Temperature Source Temporal Pulse Rate 92 Respiratory Rate 14 Blood Pressure 119/90 H Blood Pressure Mean 99 Pulse Ox 100 Oxygen Delivery Method Room Air Positive well nourished and well developed General Appearance ED: well developed HEENT Reports moist mucous membranes Neck supple and no JVD Resp normal respiratory effort and clear to auscultation bilaterally Cardio regular rate, regular rhythm and no murmurs GI normal to inspection, nondistended, normoactive bowel sounds and non-tender Palpation: soft Extremity normal to inspection General Extremety ED: Negative for edema or tenderness General Extremity: Negative for edema Neuro oriented x3, CN's II-XII intact bilaterally and no sensory deficits noted Sensorium / Orientation: alert Motor Exam: strength 5/5 throughout Psych Mood & Affect: anxious and tearful Skin no rashes or lesions noted MDM MDM MDM Narrative Medical decision making narrative: Differential diagnosis includes anxiety, gastroenteritis, , Marc tract infection, and electrolyte abnormality. CBC will be obtained to assess for leukocytosis and anemia. Basic metabolic profile will be obtained to assess for electrolyte abnormality and renal function. Urinalysis will be obtained to assess for urinary tract infection. Serum hCG will be obtained to assess for . Lab Data Attestation: I reviewed the patient's lab results. Lab results narrative: CBC was reviewed and shows a mild leukocytosis of 17.3. The remainder is within normal limits. Basic metabolic profile was reviewed and was within normal limits. Serum hCG was reviewed and was negative. Urinalysis was reviewed. Leukocyte esterase was 25. There were 5-10 white blood cells but 10-25 epithelial cells. Labs: Laboratory Results - last 24 hr 05/29/23 05/29/23 11:05 12:08 WBC 17.3 H RBC 4.69 Hgb 14.7 Hct 43.6 MCV 93.0 MCH 31.3 MCHC 33.7 RDW Std Deviation 42.7 RDW Coeff of Mario 12.4 Plt Count 359 MPV 10.0 Immature Gran % (Auto) 0.500 Neut % (Auto) 87.1 H Lymph % (Auto) 8.4 L [place] % (Auto) 3.6 Eos % (Auto) 0.2 Baso % (Auto) 0.2 Absolute Neuts (auto) 15.1 H Absolute Lymphs (auto) 1.45 Nucleated RBC % 0 Sodium 140 Potassium 3.9 Chloride 109 H Carbon Dioxide 24.0 Anion Gap 7 BUN 10 Creatinine 0.88 Estim Creat Clear Calc 79.98 Est GFR (MDRD) Af Amer 104 Est GFR (MDRD) Non-Af 86 BUN/Creatinine Ratio 11.4 Glucose 126 H Calcium 9.7 Serum , Qual NEGATIVE Urine Color Yellow Urine Clarity Sl. Cloudy Urine pH 6.0 Ur Specific [place] 1.025 Urine Protein 30 H Urine Glucose (UA) Normal Urine Ketones 15 H Urine Occult Blood Negative Urine Nitrite Negative Urine Bilirubin Negative Urine Urobilinogen Normal Ur Leukocyte Esterase 25 H Urine RBC 0 SEEN Urine WBC 5-10 SEEN Ur Squamous Epith Cells 10-25 SEEN Urine Bacteria 2+ Urine Mucus 0 SEEN Treatment and Re-Evaluation :: Patient was given IV fluids, Zofran, and Vistaril. Patient had minimal improvement with this. Patient was given a dose of Reglan and Ativan. Patient was resting comfortably on reevaluation. Patient was instructed to rest in a dark quiet room. Patient was instructed to drink plenty of fluids. Patient was instructed to follow-up with her primary care physician in 5 to 7 days. Patient instructed return if worse in any way. Patient understood and was agreeable with the plan. All questions were answered. Discharge Plan Triage Chief Complaint: Anxiety ED Provider: Zafar Marrero Dx/Rx/DC Orders Clinical Impression: Acute anxiety, Nausea and vomiting Instructions: ED Anxiety Reaction Prescriptions: Continued ondansetron 4 mg tablet,disintegrating 4 mg PO Q8H PRN PRN (Reason: Nausea) Qty: 10 0RF No Action ondansetron 4 mg tablet,disintegrating 4 mg PO Q6H PRN (Reason: nausea and vomiting) Qty: 10 0RF famotidine 20 mg tablet 2 mg PO DAILY Patient Comments: TAKE 1 TABLET BY MOUTH TWICE A DAY lorazepam [Ativan] 0.5 mg tablet 0.5 mg PO PRN PRN (Reason: Anxiety) Patient Comments: TAKE 1 TABLET BY MOUTH TWICE DAILY NEEDED FOR UP TO 30 DAYS. duloxetine 20 mg capsule,delayed release(DR/EC) 20 mg PO DAILY Patient Comments: TAKE 1 CAPSULE BY MOUTH ONCE DAILY hydroxyzine pamoate [Vistaril] 25 mg capsule 25 mg PO TID PRN (Reason: anxiety) Qty: 20 0RF ondansetron HCl 4 mg tablet 4 mg PO Q6H PRN (Reason: nausea and vomiting) Qty: 15 0RF lorazepam [Ativan] 1 mg tablet 1 mg PO TID PRN (Reason: anxiety) Qty: 10 0RF buspirone 7.5 mg tablet 7.5 mg PO BID 30 Days Qty: 60 0RF hydroxyzine pamoate [hydroxyzine pamoate] 25 mg capsule 25 mg PO TID PRN PRN (Reason: Anxiety) Qty: 30 0RF Primary Care Provider: Wilfred Nova Referrals: Wilfred Nova DO [Primary Care Provider] - Disposition Disposition: Home, Self Care
--- NOTE | 2023-05-29 11:11 | CM.ED ---
Social Work Referral Source: case find Referral Reason: care plan SW reviewed patient's chart and provided a copy of patient's care plan to MD Marrero to review possible obstacles and solutions regarding care for patient. reports understanding and will consult with SW if needs arise. Mariah Taveras MSW, BUDDY
[2023-05-29] MEDS: Ondansetron 4 MG/2 ML Vial IV (11:12)
[2023-05-29] MEDS: hydrOXYzine 50 MG/ML Vial 25 MG IM (11:12)
[2023-05-29] MEDS: 0.9% Normal Saline (1000mL) 1,000 ML 1000 ML IV (11:12)
[2023-05-29 11:16] LABS: Absolute Lymphocyte Count 1.45 X10^3/uL (0.83-4.51); Absolute Neutrophil Count 15.1 X10^3/uL (2.0-7.7); Basophil# 0.04 X10^3/uL; Basophil% 0.2 % (0-1); Eosinophil# 0.04 X10^3/uL; Eosinophils% 0.2 % (0-5); Hematocrit 43.6 % (37-47); Hemoglobin 14.7 g/dL (12.0-15.0); Lymphocyte # 1.45 X10^3/ul (0.83-4.51); Lymphocyte % 8.4 % (19-41); Mean Corp Hgb Conc 33.7 g/dL (32-36); Mean Corpuscular Hgb 31.3 pg (27.0-32.0); Monocyte# 0.63 X10^3/uL; Monocyte% 3.6 % (0-10); NRBC Flagged by Analyzer 0 % (0-5); Neutrophil # 15.05 X10^3/uL (2.7-7.7); Neutrophil % 87.1 % (47-70); Platelet Count 359 K/mm3 (150-450); RBC Distribution Width CV 12.4 % (11.6-14.6); RBC Distribution Width SD 42.7 fl (35.1-43.9); Red Blood Count 4.69 M/mm3 (4.2-5.4); White Blood Count 17.3 K/mm3 (4.4-11.0)
[2023-05-29 11:30] LABS: Internal QC Validated? YES +Cl - CLEAR BKGD; Pregnancy, Serum, hCG Quali. NEGATIVE Negative
[2023-05-29 11:40] LABS: Anion Gap 7 (5-15); BUN 10 mg/dL (7-18); BUN/Creat Ratio 11.4 RATIO (10-20); Calcium,Total 9.7 mg/dL (8.5-10.1); Chloride 109 mmol/L (98-107); Creatinine, Serum 0.88 mg/dL (0.55-1.02); EST Glomerular Filtration Rate 86 mL/min (>60); Est Glom Filt Rate - Afr Amer 104 mL/min (>60); Estimated Creatinine Clearance 79.98 ml/min; Glucose 126 mg/dL (74-106); Potassium 3.9 mmol/L (3.5-5.1); Sodium Level 140 mmol/L (136-145)
[2023-05-29 12:22] LABS: Mucous, Urine 0 SEEN /hpf (<or=2+); Red Blood Cells-Urine 0 SEEN /hpf (0-5)
[2023-05-29 12:34] LABS: Color, Urine Yellow (Yellow); Glucose, Dipstick Normal (Normal); Ketone-Dipstick 15 mg/dl (Negative); Leukocyte Esterase-Dipstick 25 /ul (Negative); Nitrite-Dipstick Negative (Negative); Occult Blood-Urine Negative /ul (Negative); Protein-Dipstick 30 mg/dl (Negative); Specific Gravity, Urine 1.025 (1.002-1.030); Urine Bilirubin Dipstick Negative (Negative); Urine Clarity Sl. Cloudy (Clear); Urine Urobilinogen Normal (Normal)
[2023-05-29 12:50] LABS: Squamous Epithelial Cells - UA 10-25 SEEN /hpf (5-10)
[2023-05-29 12:51] LABS: Bacteria 2+ /hpf (None Seen); White Blood Cells 5-10 SEEN /hpf (0-5)
[2023-05-29] MEDS: LORazepam 2 MG/ML Syringe 0.5 MG IV (13:13)
[2023-05-29] MEDS: Metoclopramide 10 MG/2 ML Vial IV (13:13)
[2023-05-29 14:21] VITALS: RESP 16; O2SAT 99
== END 2023-05-29 14:23 | disposition home or self-care (01) ==
PROVIDERS: Emergency Provider Emergency Medicine; PCP Student in an Organized Health Care Education/Training Program; Visit Provider Emergency Medicine
DX: F41.9 Anxiety disorder, unspecified (principal); R11.2 Nausea with vomiting, unspecified; F17.290 Nicotine dependence, other tobacco product, uncomplicated; F12.90 Cannabis use, unspecified, uncomplicated
CPT/HCPCS: 80048; 81001; 84703; 85025; 96361; 96372; 96374; 96375; 99283; J7030; A4216; J2405

== ENCOUNTER 2023-06-23 10:51 | Emergency (ER) | payer BC, SELFPAY ==
[2023-06-23 10:52] VITALS: PULSE 70; RESP 18; TEMP 35.6; O2SAT 99; BMI 20.8
--- NOTE | 2023-06-23 11:15 | EDS_ITS ---
HPI HPI - GI History of Present Illness Chief Complaint: Nausea/Vomiting Narrative Narrative: 22-year-old female with history of anxiety presenting with anxiety but also stating she has a history of a cyclic vomiting syndrome. Patient states that she was otherwise healthy last evening but this morning noted she woke up about with abdominal cramping, anxiety, nausea/vomiting. Patient states she previously had taken Vistaril or Ativan but does not have any these medications. Patient denies fever, chills. She denies urinary complaints or vaginal complaints. No constipation or diarrhea. She states that previously she was post to follow-up with Wilfred Nova her primary care physician but due to the symptoms she had to go to the emergency room missed her appointment. She does not any medications at home to help. Denies significant medical history otherwise. [facility] Medical History Generalized anxiety disorder Major depressive disorder, single episode, severe without psychosis Marijuana use Panic disorder Home Medications ondansetron 4 mg disintegrating tablet 4 mg PO Q6H PRN nausea and vomiting #10 tabs 01/08/22 [Rx Last Taken Unknown] duloxetine 20 mg capsule,delayed release 20 mg PO DAILY 03/18/22 [History Last Taken Unknown] famotidine 20 mg tablet 2 mg PO DAILY 03/18/22 [History Last Taken Unknown] lorazepam 0.5 mg tablet (Ativan) 0.5 mg PO PRN PRN Anxiety 03/18/22 [History Last Taken Unknown] hydroxyzine pamoate 25 mg capsule (Vistaril) 25 mg PO TID PRN anxiety #20 caps 05/22/22 [Rx Last Taken Unknown] ondansetron HCl 4 mg tablet 4 mg PO Q6H PRN nausea and vomiting #15 tabs 05/22/22 [Rx Last Taken Unknown] lorazepam 1 mg tablet (Ativan) 1 mg PO TID PRN anxiety #10 tabs 05/24/22 [Rx Last Taken Unknown] buspirone 7.5 mg tablet 7.5 mg PO BID 30 days #60 tabs 07/22/22 [Rx Last Taken Unknown] hydroxyzine pamoate 25 mg capsule 25 mg PO TID PRN PRN Anxiety #30 CAPSULES 04/15/23 [Rx Last Taken Unknown] ondansetron 4 mg disintegrating tablet 4 mg PO Q8H PRN PRN Nausea #10 tabs 05/29/23 [Rx Last Taken Unknown] hydroxyzine HCl 25 mg tablet 25 mg PO TID PRN anxiety #20 tabs 06/23/23 [Rx Last Taken Unknown] ondansetron 4 mg disintegrating tablet 4 mg PO Q8H PRN PRN Nausea #20 tabs 06/23/23 [Rx Last Taken Unknown] Allergy/AdvReac Type Severity Reaction Status Date / Time No Known Allergies Allergy Verified 06/23/23 10:52 Social History Smoking Status: Current every day smoker tobacco type: e-cigarettes substance use type: marijuana ROS ROS ED Constitutional Constitutional ED: Denies chills, fever(s) or sweats Eyes Eyes: Denies blurry vision or change in vision ENT ENT ED: Denies ear pain or sore throat Cardiovascular Cardiovascular: Denies chest pain, palpitations or racing heartbeat Respiratory/Chest Respiratory/Chest: Denies cough, dyspnea or sputum Gastrointestinal Gastrointestinal: Reports nausea and vomiting; Denies abdominal pain, constipation or diarrhea Genitourinary Genitourinary ED: Denies dysuria, hematuria or urinary frequency Musculoskeletal Musculoskeletal: Denies arthralgias, myalgias or neck pain Integumentary Denies abscess, Abrasions or rash Neurologic Neurologic: Denies headache(s), paresthesias or weakness Psychiatric Psychiatric: Reports anxiety; Denies depression, suicidal ideation or suicidal thoughts Endocrine Endocrinology: Denies polydipsia or polyuria EXAM Physical Exam Const Vital Signs: 06/23/23 10:52 Temperature 96.1 F L Temperature Source Temporal Pulse Rate 70 Respiratory Rate 18 Pulse Ox 99 Oxygen Delivery Method Room Air Positive well nourished Constitutional Narrative: Ongoing General Appearance ED: Negative for pallor HEENT Reports moist mucous membranes normocephalic Eyes PERRL and EOMs intact bilaterally General Eye ED: Negative for pale conjunctiva or scleral icterus Neck no lymphadenopathy Resp normal respiratory effort and clear to auscultation bilaterally Auscultation: Negative for rales, rhonchi or wheezes Cardio regular rate and regular rhythm GI non-tender, non-distended and no masses Back/Spine no CVA tenderness Neuro CN's II-XII intact bilaterally and moves all extremities Motor Exam: strength 5/5 throughout Psych Attitude: agitated Mood & Affect: anxious and tearful Skin no wounds General Skin Exam: Negative for jaundice or pallor MDM MDM MDM Narrative Medical decision making narrative: Patient with history of cyclic vomiting and anxiety. Differential includes anxiety, cyclic vomiting syndrome, dehydration, electrolyte abnormalities, , UTI. Patient given IV fluids. She given cocktail for cyclic vomiting. Will obtain CBC to assess white blood cell count, hemoglobin, platelets. CMP to assess liver function, renal function, electrolytes. hCG to assess for . Urinalysis to assess for UTI. Patient was a slight leukocytosis of 15.3 however this is typical for the patient. Renal function is normal. Electrolytes show slightly low potassium at 3.2. Urinalysis shows ketones but no evidence of infection. hCG negative. Reevaluation at 12:40 PM the patient is doing much better and states she is willing to go home at this point. She is given a refill for hydroxyzine and Zofran. She will follow-up with her PCP. Return precaution discussed. Impression: 1. Anxiety 2. Cyclic vomiting syndrome Lab Data Attestation: I reviewed the patient's lab results. Labs: Laboratory Results - last 24 hr 06/23/23 06/23/23 11:15 11:54 WBC 15.3 H RBC 4.50 Hgb 14.0 Hct 40.4 MCV 89.8 MCH 31.1 MCHC 34.7 RDW Std Deviation 40.7 RDW Coeff of Mario 12.3 Plt Count 368 MPV 9.8 Immature Gran % (Auto) 0.400 Neut % (Auto) 92.1 H Lymph % (Auto) 5.5 L [place] % (Auto) 1.7 Eos % (Auto) 0.0 Baso % (Auto) 0.3 Absolute Neuts (auto) 14.1 H Absolute Lymphs (auto) 0.84 Nucleated RBC % 0 Sodium 143 Potassium 3.2 L Chloride 107 Carbon Dioxide 26.0 Anion Gap 10 BUN 12 Creatinine 0.85 Estim Creat Clear Calc 82.80 Est GFR (MDRD) Af Amer 107 Est GFR (MDRD) Non-Af 89 BUN/Creatinine Ratio 14.1 Glucose 129 H Calcium 9.1 Serum , Qual NEGATIVE Urine Color Yellow Urine Clarity Sl. Cloudy Urine pH 5.0 Ur Specific [place] 1.030 Urine Protein 30 H Urine Glucose (UA) Normal Urine Ketones 150 A* Urine Occult Blood 10 H Urine Nitrite Negative Urine Bilirubin Negative Urine Urobilinogen Normal Ur Leukocyte Esterase 25 H Urine RBC 0 SEEN Urine WBC 0-5 SEEN Ur Squamous Epith Cells 0-5 SEEN Urine Bacteria 0 SEEN Urine Mucus 0 SEEN Discharge Plan Triage Chief Complaint: Nausea/Vomiting ED Provider: Jigar Downey Dx/Rx/DC Orders Clinical Impression: Anxiety, Cyclical vomiting Instructions: Anxiety Disorders Tx, ED Cyclic Vomiting Syndrome Prescriptions: New hydroxyzine HCl 25 mg tablet 25 mg PO TID PRN (Reason: anxiety) Qty: 20 0RF ondansetron 4 mg tablet,disintegrating 4 mg PO Q8H PRN PRN (Reason: Nausea) Qty: 20 0RF No Action ondansetron 4 mg tablet,disintegrating 4 mg PO Q6H PRN (Reason: nausea and vomiting) Qty: 10 0RF famotidine 20 mg tablet 2 mg PO DAILY Patient Comments: TAKE 1 TABLET BY MOUTH TWICE A DAY lorazepam [Ativan] 0.5 mg tablet 0.5 mg PO PRN PRN (Reason: Anxiety) Patient Comments: TAKE 1 TABLET BY MOUTH TWICE DAILY NEEDED FOR UP TO 30 DAYS. duloxetine 20 mg capsule,delayed release(DR/EC) 20 mg PO DAILY Patient Comments: TAKE 1 CAPSULE BY MOUTH ONCE DAILY hydroxyzine pamoate [Vistaril] 25 mg capsule 25 mg PO TID PRN (Reason: anxiety) Qty: 20 0RF ondansetron HCl 4 mg tablet 4 mg PO Q6H PRN (Reason: nausea and vomiting) Qty: 15 0RF lorazepam [Ativan] 1 mg tablet 1 mg PO TID PRN (Reason: anxiety) Qty: 10 0RF buspirone 7.5 mg tablet 7.5 mg PO BID 30 Days Qty: 60 0RF hydroxyzine pamoate [hydroxyzine pamoate] 25 mg capsule 25 mg PO TID PRN PRN (Reason: Anxiety) Qty: 30 0RF ondansetron 4 mg tablet,disintegrating 4 mg PO Q8H PRN PRN (Reason: Nausea) Qty: 10 0RF Primary Care Provider: Wilfred Nova Referrals: Wilfred Nova DO [Primary Care Provider] - Disposition Disposition: Home, Self Care
[2023-06-23] MEDS: 0.9% Normal Saline (1000mL) 1,000 ML 999 ML IV (11:17)
[2023-06-23] MEDS: Ondansetron 4 MG/2 ML Vial IV (11:17)
[2023-06-23] MEDS: LORazepam 2 MG/ML Syringe 0.5 MG IV (11:20)
[2023-06-23 11:27] LABS: Absolute Lymphocyte Count 0.84 X10^3/uL (0.83-4.51); Absolute Neutrophil Count 14.1 X10^3/uL (2.0-7.7); Basophil# 0.04 X10^3/uL; Basophil% 0.3 % (0-1); Hematocrit 40.4 % (37-47); Lymphocyte # 0.84 X10^3/ul (0.83-4.51); Lymphocyte % 5.5 % (19-41); Mean Corp Hgb Conc 34.7 g/dL (32-36); Mean Corpuscular Hgb 31.1 pg (27.0-32.0); Mean Corpuscular Volume 89.8 fL (81-99); Mean Platelet Vol. 9.8 fl (6.2-12.0); Monocyte# 0.26 X10^3/uL; Monocyte% 1.7 % (0-10); NRBC Flagged by Analyzer 0 % (0-5); Neutrophil # 14.09 X10^3/uL (2.7-7.7); Neutrophil % 92.1 % (47-70); Platelet Count 368 K/mm3 (150-450); RBC Distribution Width CV 12.3 % (11.6-14.6); RBC Distribution Width SD 40.7 fl (35.1-43.9); White Blood Count 15.3 K/mm3 (4.4-11.0)
[2023-06-23] MEDS: Famotidine 200 MG/20 ML MDV 20 MG in 0.9% Normal Saline (Pres. free 8 ML 300 MG IV (11:28)
[2023-06-23 11:37] LABS: Anion Gap 10 (5-15); BUN 12 mg/dL (7-18); BUN/Creat Ratio 14.1 RATIO (10-20); Calcium,Total 9.1 mg/dL (8.5-10.1); Chloride 107 mmol/L (98-107); Creatinine, Serum 0.85 mg/dL (0.55-1.02); EST Glomerular Filtration Rate 89 mL/min (>60); Est Glom Filt Rate - Afr Amer 107 mL/min (>60); Glucose 129 mg/dL (74-106); Potassium 3.2 mmol/L (3.5-5.1); Sodium Level 143 mmol/L (136-145)
[2023-06-23 12:03] LABS: Internal QC Validated? YES +Cl - CLEAR BKGD; Pregnancy, Serum, hCG Quali. NEGATIVE Negative
[2023-06-23 12:12] LABS: Bacteria 0 SEEN /hpf (None Seen); Mucous, Urine 0 SEEN /hpf (<or=2+); Red Blood Cells-Urine 0 SEEN /hpf (0-5)
[2023-06-23 12:17] LABS: Color, Urine Yellow (Yellow); Glucose, Dipstick Normal (Normal); Leukocyte Esterase-Dipstick 25 /ul (Negative); Nitrite-Dipstick Negative (Negative); Occult Blood-Urine 10 /ul (Negative); Protein-Dipstick 30 mg/dl (Negative); Urine Bilirubin Dipstick Negative (Negative); Urine Clarity Sl. Cloudy (Clear); Urine Urobilinogen Normal (Normal)
[2023-06-23 12:25] LABS: Ketone-Dipstick 150 mg/dl (Negative)
[2023-06-23 12:27] LABS: Squamous Epithelial Cells - UA 0-5 SEEN /hpf (5-10); White Blood Cells 0-5 SEEN /hpf (0-5)
== END 2023-06-23 13:04 | disposition home or self-care (01) ==
PROVIDERS: Emergency Provider Student in an Organized Health Care Education/Training Program; PCP Student in an Organized Health Care Education/Training Program; Visit Provider Student in an Organized Health Care Education/Training Program
DX: F41.9 Anxiety disorder, unspecified (principal); R11.15 Cyclical vomiting syndrome unrelated to migraine; F17.290 Nicotine dependence, other tobacco product, uncomplicated; F12.90 Cannabis use, unspecified, uncomplicated
CPT/HCPCS: 80048; 81001; 84703; 85025; 96374; 96375; 99283; A4216; J2405; J3490

== ENCOUNTER 2023-10-03 12:22 | Emergency (ER) | payer BC, SELFPAY ==
[2023-10-03 12:23] VITALS: BP 125/86; PULSE 82; RESP 18; TEMP 37; O2SAT 97; BMI 20.5
--- NOTE | 2023-10-03 12:49 | EDS_ITS ---
HPI <DEVAUGHN Hays - Last Filed: 10/03/23 14:30> History of Present Illness Chief Complaint: Nausea/Vomiting Narrative Narrative: Patient is a 23-year-old female with history of cyclic vomiting syndrome, anxiety who is currently not on any medication presenting to the emergency department for ongoing nausea and vomiting started 8 AM this morning. Patient has been to the ER a couple times for this. Patient states that she does see a PCP however she currently does not see a specialist or take any medications daily. She does use marijuana however intermittently. Patient denies any fever or chills, blood in stool or vomit. PFSH <DEVAUGHN Hays - Last Filed: 10/03/23 14:30> [facility] Medical History Generalized anxiety disorder Major depressive disorder, single episode, severe without psychosis Marijuana use Panic disorder Home Medications ondansetron 4 mg disintegrating tablet 4 mg PO Q6H PRN nausea and vomiting #10 tabs 01/08/22 [Rx Last Taken Unknown] duloxetine 20 mg capsule,delayed release 20 mg PO DAILY 03/18/22 [History Last Taken Unknown] famotidine 20 mg tablet 2 mg PO DAILY 03/18/22 [History Last Taken Unknown] lorazepam 0.5 mg tablet (Ativan) 0.5 mg PO PRN PRN Anxiety 03/18/22 [History Last Taken Unknown] hydroxyzine pamoate 25 mg capsule (Vistaril) 25 mg PO TID PRN anxiety #20 caps 05/22/22 [Rx Last Taken Unknown] ondansetron HCl 4 mg tablet 4 mg PO Q6H PRN nausea and vomiting #15 tabs 05/22/22 [Rx Last Taken Unknown] lorazepam 1 mg tablet (Ativan) 1 mg PO TID PRN anxiety #10 tabs 05/24/22 [Rx Last Taken Unknown] buspirone 7.5 mg tablet 7.5 mg PO BID 30 days #60 tabs 07/22/22 [Rx Last Taken Unknown] hydroxyzine pamoate 25 mg capsule 25 mg PO TID PRN PRN Anxiety #30 CAPSULES 04/15/23 [Rx Last Taken Unknown] ondansetron 4 mg disintegrating tablet 4 mg PO Q8H PRN PRN Nausea #10 tabs 05/29/23 [Rx Last Taken Unknown] hydroxyzine HCl 25 mg tablet 25 mg PO TID PRN anxiety #20 tabs 06/23/23 [Rx Last Taken Unknown] ondansetron 4 mg disintegrating tablet 4 mg PO Q8H PRN PRN Nausea #20 tabs 06/23/23 [Rx Last Taken Unknown] dicyclomine 20 mg tablet 20 mg PO TID #20 tabs 10/03/23 [Rx Last Taken Unknown] ondansetron 4 mg disintegrating tablet 4 mg PO Q8H PRN PRN Nausea #10 tabs 10/03/23 [Rx Last Taken Unknown] Allergy/AdvReac Type Severity Reaction Status Date / Time No Known Allergies Allergy Verified 06/23/23 10:52 Social History Smoking Status: Current every day smoker tobacco type: e-cigarettes substance use type: marijuana ROS <DEVAUGHN Hays - Last Filed: 10/03/23 14:30> ROS ED ROS Narrative Constitutional: Negative for fever, chills, weight loss, weakness Eyes: Negative for vision loss, vision change, double vision ENT: Negative for any sore throat, ear pain, congestion Cardiovascular: Negative for any chest pain, tightness, palpitations Respiratory: Negative for any cough, sputum production, hemoptysis, dyspnea, dyspnea on exertion, orthopnea Gastrointestinal: Negative for any diarrhea, constipation, blood in stool, blood in vomit. Positive for nausea, vomiting, diarrhea, abdominal pain : Negative for any urinary frequency, dysuria, retention, blood in urine Muscle skeletal: Negative for any neck pain, back pain Neurological: Negative for any headache, syncope, dizziness Skin: Negative for any rashes, itching, abrasions, lacerations Psychiatric: Negative for any depression,stress, suicidal ideation, homicidal ideation. Positive for anxiety Hematologic: Negative for any excessive bruising, easy bleeding EXAM <DEVAUGHN Hays - Last Filed: 10/03/23 14:30> Physical Exam Narrative Exam Narrative: Vital signs reviewed. Patient appeared anxious, patient is in no obvious distress. HEET: Head normocephalic atraumatic, TMs clear bilaterally. Posterior pharynx is clear, moist mucous membranes. Nares clear bilaterally. Neck: Supple with no lymphadenopathy or tenderness. No signs of meningismus. Cardiac: Regular rate and rhythm no murmurs gallops or rubs, equal peripheral pulses bilaterally. Respiratory: Lungs clear to auscultation bilaterally. No chest tenderness. Abdomen: Soft, nondistended. No abdominal bruit or pulsatile masses. No hepatosplenomegaly. Patient's abdominal exam shows diffuse tenderness everywhere however the abdomen is soft, no peritoneal signs, active bowel sounds. Extremities: No peripheral edema, no signs of gross trauma or deformity. Active full range of motion of all extremities. Neuro: Cranial nerves II through XII intact, no focal neurological deficits. Skin: Clean dry and intact with no rash, purpura, petechiae, vesicles or pustules. Backs/flank: No CVA tenderness, no midline spinal tenderness, no deformity. Psych: Normal mood and affect. No SI, HI or acute psychosis. Const Vital Signs: 10/03/23 12:23 10/03/23 13:18 Temperature 98.6 F Temperature Source Temporal Pulse Rate 82 78 Respiratory Rate 18 16 Blood Pressure 125/86 H 123/68 H Blood Pressure Mean 99 86 Pulse Ox 97 98 Oxygen Delivery Method Room Air Positive well nourished and well developed General Appearance ED: well developed <Dr. Michael Vieira MD - Last Filed: 10/03/23 14:15> Physical Exam Const Vital Signs: 10/03/23 12:23 10/03/23 13:18 Temperature 98.6 F Temperature Source Temporal Pulse Rate 82 78 Respiratory Rate 18 16 Blood Pressure 125/86 H 123/68 H Blood Pressure Mean 99 86 Pulse Ox 97 98 Oxygen Delivery Method Room Air MDM <DEVAUGHN Hays - Last Filed: 10/03/23 14:30> [facility] Lab Data Labs: Laboratory Results - last 24 hr 10/03/23 13:00 WBC 18.1 H RBC 4.48 Hgb 14.0 Hct 40.9 MCV 91.3 MCH 31.3 MCHC 34.2 RDW Std Deviation 41.6 RDW Coeff of Mario 12.5 Plt Count 301 MPV 10.5 Immature Gran % (Auto) 0.400 Neut % (Auto) 92.8 H Lymph % (Auto) 5.1 L [place] % (Auto) 1.5 Eos % (Auto) 0.0 Baso % (Auto) 0.2 Absolute Neuts (auto) 16.8 H Absolute Lymphs (auto) 0.93 Nucleated RBC % 0 Sodium 143 Potassium 3.7 Chloride 112 H Carbon Dioxide 26.0 Anion Gap 5 BUN 11 Creatinine 0.77 Estim Creat Clear Calc 90.64 Est GFR (MDRD) Af Amer 120 Est GFR (MDRD) Non-Af 99 BUN/Creatinine Ratio 14.2 Glucose 128 H Calcium 9.6 Total Bilirubin 0.60 AST 15 ALT 16 Alkaline Phosphatase 87 Total Protein 7.9 Albumin 4.3 Globulin 3.6 Albumin/Globulin Ratio 1.2 Lipase 24 Serum , Qual NEGATIVE Treatment and Re-Evaluation :: Differential diagnosis includes however is not limited to: Cyclic vomiting syndrome, cannabinoid hyperemesis, bowel obstruction, anxiety, acute on chronic abdominal pain. Patient appears to be in mild distress secondary to anxiety, nausea and vomiting. This does appear to be similar to the patient's cyclic vomiting syndrome. Patient states that she does not see a specialist. Patient has been the ER for this before. She was treated with multiple agents such as Reglan, Ativan, Zofran. Today, the patient will be given IV fluids, IV Toradol IV Bentyl as well as IV Haldol. Patient will be reevaluated. On reevaluation, the patient felt much better. Patient laboratory values shows a leukocytosis with a white blood count of 18.1, this is elevated however looking at the patient's past, patient usually has a elevated white count during these episodes. Chemistries were unremarkable, lipase was negative, patient is not . The patient was able to pass a p.o. challenge. I spoke with the patient at length regarding need to follow-up outpatient, follow-up with GI specialist. She is happy with the plan of care. At this time, patient be discharged home with Zofran, Bentyl. All questions answered, patient stable for discharge. <Dr. Michael Vieira MD - Last Filed: 10/03/23 14:15> [facility] Narrative Medical decision making narrative: I have personally performed a face to face assessment of the patient and have reviewed the ANNELIESE Note. I performed a substantive portion of the visit including all aspects of the following. My archer findings include: History is 23-year-old female with cyclic vomiting syndrome with nausea vomiting today and some mild cramping. Dysuria. No fevers. Extremity Exam is [21-year-old female no acute distress vital signs stable afebrile. HEENT exam unremarkable. Lungs clear. Heart regular rhythm rate about 80 no murmur. Chest wall nontender. Abdomen soft nondistended normal bowel sounds no peritoneal signs. No right upper or right lower quadrant tenderness. No hernia or mass. No obstruction. Chest x-ray moving all 4 extremities. Nontender no edema. Neurologically patient is awake and alert with no focal motor deficits.] Medical Decision Making [23-year-old with cyclic vomiting syndrome. Treated with IV fluids, Haldol, Bentyl and Toradol. Other additions or changes: [None] Lab Data Attestation: I reviewed the patient's lab results. Lab results narrative: CBC shows elevated white count 18.1. H&H of 14 and 40. Platelets 301. Electrolytes show a gap of 5 normal BUN of 11 creatinine 0.7. Liver enzymes are normal. Lipase is normal at 24. test negative. Labs: Laboratory Results - last 24 hr 10/03/23 13:00 WBC 18.1 H RBC 4.48 Hgb 14.0 Hct 40.9 MCV 91.3 MCH 31.3 MCHC 34.2 RDW Std Deviation 41.6 RDW Coeff of [place] 12.5 Plt Count 301 MPV 10.5 Immature Gran % (Auto) 0.400 Neut % (Auto) 92.8 H Lymph % (Auto) 5.1 L [place] % (Auto) 1.5 Eos % (Auto) 0.0 Baso % (Auto) 0.2 Absolute Neuts (auto) 16.8 H Absolute Lymphs (auto) 0.93 Nucleated RBC % 0 Sodium 143 Potassium 3.7 Chloride 112 H Carbon Dioxide 26.0 Anion Gap 5 BUN 11 Creatinine 0.77 Estim Creat Clear Calc 90.64 Est GFR (MDRD) Af Amer 120 Est GFR (MDRD) Non-Af 99 BUN/Creatinine Ratio 14.2 Glucose 128 H Calcium 9.6 Total Bilirubin 0.60 AST 15 ALT 16 Alkaline Phosphatase 87 Total Protein 7.9 Albumin 4.3 Globulin 3.6 Albumin/Globulin Ratio 1.2 Lipase 24 Serum , Qual NEGATIVE Discharge Plan Triage Chief Complaint: Nausea/Vomiting ED Midlevel Provider: Gonzalez Bergeron ED Provider: Michael Vieira Dx/Rx/DC Orders Clinical Impression: Cyclical vomiting Instructions: ED Cyclic Vomiting Syndrome Prescriptions: New ondansetron 4 mg tablet,disintegrating 4 mg PO Q8H PRN PRN (Reason: Nausea) Qty: 10 0RF dicyclomine 20 mg tablet 20 mg PO TID Qty: 20 0RF No Action ondansetron 4 mg tablet,disintegrating 4 mg PO Q6H PRN (Reason: nausea and vomiting) Qty: 10 0RF famotidine 20 mg tablet 2 mg PO DAILY Patient Comments: TAKE 1 TABLET BY MOUTH TWICE A DAY lorazepam [Ativan] 0.5 mg tablet 0.5 mg PO PRN PRN (Reason: Anxiety) Patient Comments: TAKE 1 TABLET BY MOUTH TWICE DAILY NEEDED FOR UP TO 30 DAYS. duloxetine 20 mg capsule,delayed release(DR/EC) 20 mg PO DAILY Patient Comments: TAKE 1 CAPSULE BY MOUTH ONCE DAILY hydroxyzine pamoate [Vistaril] 25 mg capsule 25 mg PO TID PRN (Reason: anxiety) Qty: 20 0RF ondansetron HCl 4 mg tablet 4 mg PO Q6H PRN (Reason: nausea and vomiting) Qty: 15 0RF lorazepam [Ativan] 1 mg tablet 1 mg PO TID PRN (Reason: anxiety) Qty: 10 0RF buspirone 7.5 mg tablet 7.5 mg PO BID 30 Days Qty: 60 0RF hydroxyzine pamoate [hydroxyzine pamoate] 25 mg capsule 25 mg PO TID PRN PRN (Reason: Anxiety) Qty: 30 0RF ondansetron 4 mg tablet,disintegrating 4 mg PO Q8H PRN PRN (Reason: Nausea) Qty: 10 0RF hydroxyzine HCl 25 mg tablet 25 mg PO TID PRN (Reason: anxiety) Qty: 20 0RF ondansetron 4 mg tablet,disintegrating 4 mg PO Q8H PRN PRN (Reason: Nausea) Qty: 20 0RF Primary Care Provider: Wilfred Nova Referrals: Wilfred Nova DO [Primary Care Provider] - FriendJason DO [Med Staff - Active Staff] - Activity Restrictions/Additional Instructions: Follow-up outpatient Disposition Disposition: Home, Self Care
[2023-10-03] MEDS: Ketorolac 15 MG/ML Vial IV (12:58)
[2023-10-03] MEDS: 0.9% Normal Saline (1000mL) 1,000 ML 1000 ML IV (12:58)
[2023-10-03] MEDS: Haloperidol Lactate 5 MG/ML Vial 2 MG IV (12:58)
[2023-10-03] MEDS: Dicyclomine 20 MG/2 ML Vial IM (12:59)
[2023-10-03 13:18] VITALS: BP 123/68; PULSE 78; RESP 16; O2SAT 98
[2023-10-03 13:25] LABS: Absolute Lymphocyte Count 0.93 X10^3/uL (0.83-4.51); Absolute Neutrophil Count 16.8 X10^3/uL (2.0-7.7); Basophil# 0.04 X10^3/uL; Basophil% 0.2 % (0-1); Hematocrit 40.9 % (37-47); Lymphocyte # 0.93 X10^3/ul (0.83-4.51); Lymphocyte % 5.1 % (19-41); Mean Corp Hgb Conc 34.2 g/dL (32-36); Mean Corpuscular Hgb 31.3 pg (27.0-32.0); Mean Corpuscular Volume 91.3 fL (81-99); Mean Platelet Vol. 10.5 fl (6.2-12.0); Monocyte# 0.27 X10^3/uL; Monocyte% 1.5 % (0-10); NRBC Flagged by Analyzer 0 % (0-5); Neutrophil # 16.79 X10^3/uL (2.7-7.7); Neutrophil % 92.8 % (47-70); Platelet Count 301 K/mm3 (150-450); RBC Distribution Width CV 12.5 % (11.6-14.6); RBC Distribution Width SD 41.6 fl (35.1-43.9); Red Blood Count 4.48 M/mm3 (4.2-5.4); White Blood Count 18.1 K/mm3 (4.4-11.0)
[2023-10-03 13:37] LABS: ALB/GLOB Ratio 1.2 RATIO (0.9-2.4); AST(SGOT) 15 U/L (15-37); Alanine Aminotransfer ALT/SGPT 16 U/L (13-56); Albumin, Serum 4.3 g/dL (3.2-5.0); Alkaline Phosphatase 87 U/L (45-117); Anion Gap 5 (5-15); BUN 11 mg/dL (7-18); BUN/Creat Ratio 14.2 RATIO (10-20); Calcium,Total 9.6 mg/dL (8.5-10.1); Chloride 112 mmol/L (98-107); Creatinine, Serum 0.77 mg/dL (0.55-1.02); EST Glomerular Filtration Rate 99 mL/min (>60); Est Glom Filt Rate - Afr Amer 120 mL/min (>60); Estimated Creatinine Clearance 90.64 ml/min; Globulin 3.6 g/dL (2.2-4.2); Glucose 128 mg/dL (74-106); Lipase 24 U/L (13-75); Potassium 3.7 mmol/L (3.5-5.1); Protein, Total 7.9 g/dL (6.4-8.2); Sodium Level 143 mmol/L (136-145)
[2023-10-03 13:41] LABS: Internal QC Validated? YES +Cl - CLEAR BKGD; Record Kit Lot#, Serum Preg. HCG0000718086
[2023-10-03 13:47] LABS: Pregnancy, Serum, hCG Quali. NEGATIVE Negative
[2023-10-03 14:29] VITALS: BP 108/46; PULSE 89; RESP 14; O2SAT 99
[2023-10-03 14:47] VITALS: BP 106/50; PULSE 76; RESP 16; TEMP 36.6; O2SAT 99
== END 2023-10-03 14:51 | disposition home or self-care (01) ==
PROVIDERS: Nurse Practitioner; Emergency Provider Emergency Medicine; PCP Student in an Organized Health Care Education/Training Program; Visit Provider Emergency Medicine
DX: R11.15 Cyclical vomiting syndrome unrelated to migraine (principal); F17.290 Nicotine dependence, other tobacco product, uncomplicated; F12.90 Cannabis use, unspecified, uncomplicated
CPT/HCPCS: 80053; 83690; 84703; 85025; 96361; 96372; 96374; 99283; J7030

== ENCOUNTER 2023-11-25 11:24 | Emergency (ER) | payer BC, SELFPAY ==
[2023-11-25 11:25] VITALS: BP 122/82; PULSE 74; RESP 14; TEMP 36.1; O2SAT 97; BMI 20.5
--- NOTE | 2023-11-25 11:45 | ED.VIS.GI ---
HPI HPI - GI History of Present Illness Chief Complaint: Abd Pain Informant: patient Abdominal Pain/Flank Pain Onset: Today Context: Gradual Onset Timing: Continuous Quality: Aching and Stabbing Location: Diffuse Worsened by: - (Palpation) Relieved by: Nothing Nausea/Vomiting/Emesis GI Symptom: Positive for Nausea and Vomiting Onset: Today Quality: Positive for Nonbilious; Negative for Blood streaks, Coffee ground or Hematemesis Diarrhea/Melena/Hematochezia GI Symptom: Positive for Diarrhea; Negative for Melena or Hematochezia Onset: Today Stool Quality: Positive for Loose and Watery Associated Symptoms Associated Symptoms: Negative for Dysuria, Frequency or Hematuria LMP: 3 weeks ago Narrative Narrative: Patient presents with nausea and vomiting that began this morning. Patient states it came on gradually. Patient states she has also had some diarrhea today. Patient admits to some abdominal pain as well. Patient states her pain is diffuse across her entire abdomen. Patient describes it as stabbing and aching. Patient states it is worse with palpation. Patient denies any hematemesis or coffee-ground emesis. Patient denies any melena or hematochezia. Patient states her last menstrual period was 3 weeks ago. Patient denies any urinary complaints. Patient admits to marijuana use and states her last use was approximately 3 days ago. [facility] Medical History Generalized anxiety disorder Major depressive disorder, single episode, severe without psychosis Marijuana use Panic disorder Home Medications ondansetron 4 mg disintegrating tablet 4 mg PO Q6H PRN nausea and vomiting #10 tabs 01/08/22 [Rx Last Taken Unknown] duloxetine 20 mg capsule,delayed release 20 mg PO DAILY 03/18/22 [History Last Taken Unknown] famotidine 20 mg tablet 2 mg PO DAILY 03/18/22 [History Last Taken Unknown] lorazepam 0.5 mg tablet (Ativan) 0.5 mg PO PRN PRN Anxiety 03/18/22 [History Last Taken Unknown] hydroxyzine pamoate 25 mg capsule (Vistaril) 25 mg PO TID PRN anxiety #20 caps 05/22/22 [Rx Last Taken Unknown] ondansetron HCl 4 mg tablet 4 mg PO Q6H PRN nausea and vomiting #15 tabs 05/22/22 [Rx Last Taken Unknown] lorazepam 1 mg tablet (Ativan) 1 mg PO TID PRN anxiety #10 tabs 05/24/22 [Rx Last Taken Unknown] buspirone 7.5 mg tablet 7.5 mg PO BID 30 days #60 tabs 07/22/22 [Rx Last Taken Unknown] hydroxyzine pamoate 25 mg capsule 25 mg PO TID PRN PRN Anxiety #30 CAPSULES 04/15/23 [Rx Last Taken Unknown] ondansetron 4 mg disintegrating tablet 4 mg PO Q8H PRN PRN Nausea #10 tabs 05/29/23 [Rx Last Taken Unknown] hydroxyzine HCl 25 mg tablet 25 mg PO TID PRN anxiety #20 tabs 06/23/23 [Rx Last Taken Unknown] ondansetron 4 mg disintegrating tablet 4 mg PO Q8H PRN PRN Nausea #20 tabs 06/23/23 [Rx Last Taken Unknown] dicyclomine 20 mg tablet 20 mg PO TID #20 tabs 10/03/23 [Rx Last Taken Unknown] ondansetron 4 mg disintegrating tablet 4 mg PO Q8H PRN PRN Nausea #10 tabs 10/03/23 [Rx Last Taken Unknown] Allergy/AdvReac Type Severity Reaction Status Date / Time No Known Allergies Allergy Verified 11/25/23 11:26 Surgical History no surgical history no surgical history Social History Smoking Status: Current every day smoker tobacco type: e-cigarettes substance use type: marijuana ROS ROS ED Constitutional Constitutional ED: Reports chills and subjective; Denies fever(s) Eyes Eyes: Denies blurry vision or change in vision ENT ENT ED: Denies rhinorrhea or sore throat Cardiovascular Cardiovascular: Denies chest pain or palpitations Respiratory/Chest Respiratory/Chest: Reports dyspnea; Denies cough Gastrointestinal Gastrointestinal: Reports abdominal pain, diarrhea, nausea and vomiting; Denies melena Genitourinary Genitourinary ED: Denies dysuria or hematuria Musculoskeletal Musculoskeletal: Denies back pain or neck pain Integumentary Denies abscess or rash Neurologic Neurologic: Denies headache(s) or weakness Allergic/Immunologic Allergic/Immunologic ED: Denies mouth swelling or urticaria EXAM Physical Exam Const Vital Signs: 11/25/23 11:25 11/25/23 13:24 11/25/23 13:51 Temperature 96.9 F L 98.2 F Temperature Source Temporal Pulse Rate 74 71 72 Respiratory Rate 14 20 H 16 Blood Pressure 122/82 H 104/60 103/48 L Blood Pressure Mean 95 74 66 Pulse Ox 97 98 100 Oxygen Delivery Method Room Air Room Air Positive well nourished and well developed General Appearance ED: well developed and NAD HEENT Reports moist mucous membranes Neck supple and no JVD Resp normal respiratory effort and clear to auscultation bilaterally Cardio regular rate and regular rhythm GI non-distended Palpation: soft and tender epigastric, LLQ, RLQ, LUQ, RUQ, periumbilical and suprapubic; Negative for guarding or rebound tenderness present Neuro CN's II-XII intact bilaterally, moves all extremities and no sensory deficits noted Sensorium / Orientation: alert Motor Exam: strength 5/5 throughout Psych mental status grossly normal MDM MDM MDM Narrative Medical decision making narrative: Differential diagnosis includes cannabis hyperemesis syndrome, cyclic vomiting syndrome, gastroenteritis, anxiety, , and urinary tract infection. CBC will be obtained to assess for leukocytosis and anemia. Basic metabolic profile will be obtained to assess for electrolyte abnormality and renal function. Serum hCG will be obtained to assess for . Urinalysis will be obtained to assess for Lab Data Attestation: I reviewed the patient's lab results. Lab results narrative: CBC was reviewed. There is a slight leukocytosis of 15.2. This is consistent with prior results. Basic metabolic profile was reviewed and was within normal limits. Serum hCG was reviewed and was negative. Labs: Laboratory Results - last 24 hr 11/25/23 11:38 WBC 15.2 H RBC 4.36 Hgb 13.8 Hct 39.6 MCV 90.8 MCH 31.7 MCHC 34.8 RDW Std Deviation 41.1 RDW Coeff of Mario 12.4 Plt Count 348 MPV 10.1 Immature Gran % (Auto) 0.300 Neut % (Auto) 91.4 H Lymph % (Auto) 6.4 L [place] % (Auto) 1.6 Eos % (Auto) 0.0 Baso % (Auto) 0.3 Absolute Neuts (auto) 13.9 H Absolute Lymphs (auto) 0.97 Nucleated RBC % 0 Sodium 140 Potassium 3.7 Chloride 108 H Carbon Dioxide 23.0 Anion Gap 9 BUN 12 Creatinine 0.76 Estim Creat Clear Calc 96.05 Est GFR (MDRD) Af Amer 123 Est GFR (MDRD) Non-Af 101 BUN/Creatinine Ratio 15.9 Glucose 116 H Calcium 9.4 Serum , Qual NEGATIVE Treatment and Re-Evaluation :: Patient was given IV fluids. Patient was given capsaicin cream. Patient was given Zofran, Benadryl, and Thorazine. Patient was also given a dose of Pepcid. Patient was feeling better on reevaluation. Patient was advised of her findings. Patient was instructed to follow-up with her primary care physician in 5 to 7 days. Patient was instructed to return if worse in any way. Patient understood and was agreeable with the plan. All questions were answered. Discharge Plan Triage Chief Complaint: Abd Pain Other Complaint: Nausea/Vomiting/Diarrhea ED Provider: Zafar Marrero Dx/Rx/DC Orders Clinical Impression: Nausea and vomiting, Cannabis hyperemesis syndrome concurrent with and due to cannabis abuse Instructions: ED Vomiting (Adult) Prescriptions: No Action ondansetron 4 mg tablet,disintegrating 4 mg PO Q6H PRN (Reason: nausea and vomiting) Qty: 10 0RF famotidine 20 mg tablet 2 mg PO DAILY Patient Comments: TAKE 1 TABLET BY MOUTH TWICE A DAY lorazepam [Ativan] 0.5 mg tablet 0.5 mg PO PRN PRN (Reason: Anxiety) Patient Comments: TAKE 1 TABLET BY MOUTH TWICE DAILY NEEDED FOR UP TO 30 DAYS. duloxetine 20 mg capsule,delayed release(DR/EC) 20 mg PO DAILY Patient Comments: TAKE 1 CAPSULE BY MOUTH ONCE DAILY hydroxyzine pamoate [Vistaril] 25 mg capsule 25 mg PO TID PRN (Reason: anxiety) Qty: 20 0RF ondansetron HCl 4 mg tablet 4 mg PO Q6H PRN (Reason: nausea and vomiting) Qty: 15 0RF lorazepam [Ativan] 1 mg tablet 1 mg PO TID PRN (Reason: anxiety) Qty: 10 0RF buspirone 7.5 mg tablet 7.5 mg PO BID 30 Days Qty: 60 0RF hydroxyzine pamoate [hydroxyzine pamoate] 25 mg capsule 25 mg PO TID PRN PRN (Reason: Anxiety) Qty: 30 0RF ondansetron 4 mg tablet,disintegrating 4 mg PO Q8H PRN PRN (Reason: Nausea) Qty: 10 0RF hydroxyzine HCl 25 mg tablet 25 mg PO TID PRN (Reason: anxiety) Qty: 20 0RF ondansetron 4 mg tablet,disintegrating 4 mg PO Q8H PRN PRN (Reason: Nausea) Qty: 20 0RF ondansetron 4 mg tablet,disintegrating 4 mg PO Q8H PRN PRN (Reason: Nausea) Qty: 10 0RF dicyclomine 20 mg tablet 20 mg PO TID Qty: 20 0RF Primary Care Provider: Wilfred Nova Referrals: Wilfred Nova DO [Primary Care Provider] - 3-5 Days Disposition Disposition: Home, Self Care Discharge Date/Time: 11/25/23 13:52
[2023-11-25 11:59] LABS: Absolute Lymphocyte Count 0.97 X10^3/uL (0.83-4.51); Absolute Neutrophil Count 13.9 X10^3/uL (2.0-7.7); Basophil# 0.04 X10^3/uL; Basophil% 0.3 % (0-1); Hematocrit 39.6 % (37-47); Hemoglobin 13.8 g/dL (12.0-15.0); Lymphocyte # 0.97 X10^3/ul (0.83-4.51); Lymphocyte % 6.4 % (19-41); Mean Corp Hgb Conc 34.8 g/dL (32-36); Mean Corpuscular Hgb 31.7 pg (27.0-32.0); Mean Corpuscular Volume 90.8 fL (81-99); Mean Platelet Vol. 10.1 fl (6.2-12.0); Monocyte# 0.24 X10^3/uL; Monocyte% 1.6 % (0-10); NRBC Flagged by Analyzer 0 % (0-5); Neutrophil # 13.87 X10^3/uL (2.7-7.7); Neutrophil % 91.4 % (47-70); Platelet Count 348 K/mm3 (150-450); RBC Distribution Width CV 12.4 % (11.6-14.6); RBC Distribution Width SD 41.1 fl (35.1-43.9); Red Blood Count 4.36 M/mm3 (4.2-5.4); White Blood Count 15.2 K/mm3 (4.4-11.0)
[2023-11-25] MEDS: 0.9% Normal Saline (1000mL) 1,000 ML 1000 ML IV (11:59)
[2023-11-25] MEDS: Ondansetron 4 MG/2 ML Vial IV (11:59)
[2023-11-25 12:07] LABS: Internal QC Validated? YES +Cl - CLEAR BKGD; Pregnancy, Serum, hCG Quali. NEGATIVE Negative
[2023-11-25] MEDS: Famotidine 200 MG/20 ML MDV 20 MG in 0.9% Normal Saline (Pres. free 8 ML 300 MG IV (12:09)
[2023-11-25 12:14] LABS: Anion Gap 9 (5-15); BUN 12 mg/dL (7-18); BUN/Creat Ratio 15.9 RATIO (10-20); Calcium,Total 9.4 mg/dL (8.5-10.1); Chloride 108 mmol/L (98-107); Creatinine, Serum 0.76 mg/dL (0.55-1.02); EST Glomerular Filtration Rate 101 mL/min (>60); Est Glom Filt Rate - Afr Amer 123 mL/min (>60); Estimated Creatinine Clearance 96.05 ml/min; Glucose 116 mg/dL (74-106); Potassium 3.7 mmol/L (3.5-5.1); Sodium Level 140 mmol/L (136-145)
[2023-11-25] MEDS: DiphenhydrAMINE 25 MG, ChlorproMAZINE IM 25 MG in 0.9% Normal Saline (100mL Bag) 100 ML 203 MG IV (12:34)
[2023-11-25] MEDS: Capsaicin 0.025% 1 APPLIC Tube TOPICAL (12:35)
[2023-11-25 13:24] VITALS: BP 104/60; PULSE 71; RESP 20; O2SAT 98
[2023-11-25 13:51] VITALS: BP 103/48; PULSE 72; RESP 16; TEMP 36.8; O2SAT 100
== END 2023-11-25 13:52 | disposition home or self-care (01) ==
PROVIDERS: Emergency Provider Emergency Medicine; PCP Student in an Organized Health Care Education/Training Program; Visit Provider Emergency Medicine
DX: R11.2 Nausea with vomiting, unspecified (principal); F12.188 Cannabis abuse with other cannabis-induced disorder; F17.290 Nicotine dependence, other tobacco product, uncomplicated
CPT/HCPCS: 80048; 84703; 85025; 96365; 96375; 99283; J7030; A4216; J2405; J3490

== ENCOUNTER 2023-12-16 12:37 | Emergency (ER) | payer BC, SELFPAY ==
[2023-12-16 12:37] VITALS: BP 128/102; BP 130/109; PULSE 109; PULSE 90; RESP 20; RESP 22; TEMP 36.6; O2SAT 100; O2SAT 97
--- NOTE | 2023-12-16 12:56 | EX.ED.DYSGE1 ---
HPI History of Present Illness Chief Complaint: Nausea/Vomiting Detail of Chief Complaint: Nausea, vomiting, diarrhea Informant: patient Narrative Narrative: Patient presents with vomiting and diarrhea. She states symptoms started this morning around 8 AM. She is thrown up more than 5 times. She has had 2 episodes of watery stool. She describes abdominal cramping and feels like her stomach is tight knots. She apparently has couple episodes like this every month. Several years ago she had upper endoscopy and a colonoscopy. She was seen in the emergency department for similar complaints and has been diagnosed with hyperemesis related to THC abuse. Patient states currently not smoking THC. Patient also was told that her symptoms may be due to anxiety or cyclic vomiting. [facility] Medical History Generalized anxiety disorder Major depressive disorder, single episode, severe without psychosis Marijuana use Panic disorder Home Medications ondansetron 4 mg disintegrating tablet 4 mg PO Q6H PRN nausea and vomiting #10 tabs 01/08/22 [Rx Last Taken Unknown] duloxetine 20 mg capsule,delayed release 20 mg PO DAILY 03/18/22 [History Last Taken Unknown] famotidine 20 mg tablet 2 mg PO DAILY 03/18/22 [History Last Taken Unknown] lorazepam 0.5 mg tablet (Ativan) 0.5 mg PO PRN PRN Anxiety 03/18/22 [History Last Taken Unknown] hydroxyzine pamoate 25 mg capsule (Vistaril) 25 mg PO TID PRN anxiety #20 caps 05/22/22 [Rx Last Taken Unknown] ondansetron HCl 4 mg tablet 4 mg PO Q6H PRN nausea and vomiting #15 tabs 05/22/22 [Rx Last Taken Unknown] lorazepam 1 mg tablet (Ativan) 1 mg PO TID PRN anxiety #10 tabs 05/24/22 [Rx Last Taken Unknown] buspirone 7.5 mg tablet 7.5 mg PO BID 30 days #60 tabs 07/22/22 [Rx Last Taken Unknown] hydroxyzine pamoate 25 mg capsule 25 mg PO TID PRN PRN Anxiety #30 CAPSULES 04/15/23 [Rx Last Taken Unknown] ondansetron 4 mg disintegrating tablet 4 mg PO Q8H PRN PRN Nausea #10 tabs 10/11/23 [Rx Last Taken Unknown] hydroxyzine HCl 25 mg tablet 25 mg PO TID PRN anxiety #20 tabs 06/23/23 [Rx Last Taken Unknown] ondansetron 4 mg disintegrating tablet 4 mg PO Q8H PRN PRN Nausea #20 tabs 06/23/23 [Rx Last Taken Unknown] dicyclomine 20 mg tablet 20 mg PO TID #20 tabs 10/03/23 [Rx Last Taken Unknown] ondansetron 4 mg disintegrating tablet 4 mg PO Q8H PRN PRN Nausea #10 tabs 10/03/23 [Rx Last Taken Unknown] Allergy/AdvReac Type Severity Reaction Status Date / Time No Known Allergies Allergy Verified 12/16/23 12:38 Social History Smoking Status: Current every day smoker tobacco type: e-cigarettes substance use type: marijuana ROS ROS ED Review of Systems ROS Unobtainable: other Constitutional Constitutional ED: Reports lethargy; Denies chills, fever(s), sweats or weight loss Eyes Eyes: Denies blurry vision, change in vision or diplopia ENT ENT ED: Denies rhinorrhea or sore throat Cardiovascular Cardiovascular: Denies chest pain, orthopnea or racing heartbeat Respiratory/Chest Respiratory/Chest: Denies cough, dyspnea, dyspnea on exertion, orthopnea or sputum Gastrointestinal Gastrointestinal: Reports abdominal pain, diarrhea and nausea; Denies vomiting Genitourinary Genitourinary ED: Denies dysuria, hematuria or urinary frequency Musculoskeletal Musculoskeletal: Denies arthralgias, back pain, myalgias or neck pain Integumentary Denies abscess, Abrasions or rash Neurologic Neurologic: Denies headache(s) or weakness Psychiatric Psychiatric: Denies anxiety, depression or suicidal thoughts Endocrine Endocrinology: Denies polydipsia, polyphagia or polyuria Hematologic/Lymphatic Hematologic/Lymphatic: Denies easy bleeding, easy bruising or lymphadenopathy Allergic/Immunologic Allergic/Immunologic ED: Denies mouth swelling, tongue swelling or urticaria EXAM Physical Exam Const Vital Signs: 12/16/23 12:37 12/16/23 12:37 12/16/23 14:00 Temperature 98 F Temperature Source Temporal Pulse Rate 90 109 H 89 Respiratory Rate 22 H 20 H 18 Blood Pressure 130/109 H 128/102 H 97/63 Blood Pressure Mean 116 110 74 Pulse Ox 100 97 99 Oxygen Delivery Method Room Air Room Air Positive well nourished and well developed General Appearance ED: well developed and NAD HEENT Reports TM's clear and moist mucous membranes normocephalic and atraumatic; Negative for trauma or tenderness Tympanic Membrane ED: Yes TM's clear Eyes PERRL and EOMs intact bilaterally General Eye ED: Negative for pale conjunctiva or scleral icterus Neck no lymphadenopathy, supple and no JVD General: Negative for tenderness Chest Wall inspection of chest normal and palpation of chest normal Chest: Negative for tenderness Resp normal respiratory effort and clear to auscultation bilaterally Effort and Inspection: Negative for respiratory distress or pain with movement Auscultation: Negative for rhonchi, wheezes or diminished lung sounds Cardio regular rate, regular rhythm, S1 normal heart sound, S2 normal heart sound and no murmurs Peripheral Pulses: pulses 2+ throughout GI normal to inspection, nondistended, normoactive bowel sounds, soft to palpation, non-distended and no masses GI Narrative: Mild diffuse tenderness. There is no rebound, rigidity, or pedal signs. No mass palpated. Back/Spine no CVA tenderness and no thoracic nor lumbar tenderness Extremity normal to inspection General Extremety ED: Negative for edema General Extremity: Negative for edema Neuro oriented x3, CN's II-XII intact bilaterally, no sensory deficits noted and gait normal Sensorium / Orientation: awake, alert, oriented to person, oriented to place and oriented to time Motor Exam: strength 5/5 throughout and strength abnormal Psych mental status grossly normal Skin no rashes or lesions noted and no wounds MDM MDM MDM Narrative Medical decision making narrative: Patient presents with vomiting and diarrhea and abdominal pain. In the differential would be viral gastroenteritis versus hyperemesis related to THC versus cyclic vomiting versus other acute intra-abdominal process such as appendicitis given her right lower quadrant pain. CBC with difficulty showing a 17.7 with hemoglobin 13.7 platelet count 376. Chemistries unremarkable. LFTs were normal. hCG was negative. Lipase normal at 24. Patient was medicated with Reglan and Ativan and given a liter normal saline fluid bolus. CT scan of the abdomen pelvis with IV and p.o. contrast will be ordered to evaluate further to rule out acute appendicitis. She does have an elevated white count of 17.7 however she chronically seems to have a somewhat elevated WBC count. Care of patient turned over to evening physician awaiting CT results and final disposition. Lab Data Attestation: I reviewed the patient's lab results. Labs: Laboratory Results - last 24 hr 12/16/23 13:10 WBC 17.7 H RBC 4.41 Hgb 13.7 Hct 38.8 MCV 88.0 MCH 31.1 MCHC 35.3 RDW Std Deviation 39.6 RDW Coeff of Mario 12.3 Plt Count 376 MPV 9.8 Immature Gran % (Auto) 0.500 Neut % (Auto) 91.7 H Lymph % (Auto) 6.2 L [place] % (Auto) 1.4 Eos % (Auto) 0.0 Baso % (Auto) 0.2 Absolute Neuts (auto) 16.2 H Absolute Lymphs (auto) 1.10 Nucleated RBC % 0 Sodium 140 Potassium 3.5 Chloride 109 H Carbon Dioxide 23.0 Anion Gap 8 BUN 11 Creatinine 0.86 Estim Creat Clear Calc 84.88 Est GFR (MDRD) Af Amer 105 Est GFR (MDRD) Non-Af 87 BUN/Creatinine Ratio 12.8 Glucose 135 H Calcium 9.4 Total Bilirubin 0.60 AST 18 ALT 16 Alkaline Phosphatase 104 Total Protein 7.9 Albumin 4.1 Globulin 3.8 Albumin/Globulin Ratio 1.1 Lipase 24 Serum , Qual NEGATIVE Discharge Plan Triage Chief Complaint: Nausea/Vomiting ED Provider: Darrin Wright Dx/Rx/DC Orders Clinical Impression: Abdominal pain, Vomiting Prescriptions: No Action ondansetron 4 mg tablet,disintegrating 4 mg PO Q6H PRN (Reason: nausea and vomiting) Qty: 10 0RF famotidine 20 mg tablet 2 mg PO DAILY Patient Comments: TAKE 1 TABLET BY MOUTH TWICE A DAY lorazepam [Ativan] 0.5 mg tablet 0.5 mg PO PRN PRN (Reason: Anxiety) Patient Comments: TAKE 1 TABLET BY MOUTH TWICE DAILY NEEDED FOR UP TO 30 DAYS. duloxetine 20 mg capsule,delayed release(DR/EC) 20 mg PO DAILY Patient Comments: TAKE 1 CAPSULE BY MOUTH ONCE DAILY hydroxyzine pamoate [Vistaril] 25 mg capsule 25 mg PO TID PRN (Reason: anxiety) Qty: 20 0RF ondansetron HCl 4 mg tablet 4 mg PO Q6H PRN (Reason: nausea and vomiting) Qty: 15 0RF lorazepam [Ativan] 1 mg tablet 1 mg PO TID PRN (Reason: anxiety) Qty: 10 0RF buspirone 7.5 mg tablet 7.5 mg PO BID 30 Days Qty: 60 0RF hydroxyzine pamoate [hydroxyzine pamoate] 25 mg capsule 25 mg PO TID PRN PRN (Reason: Anxiety) Qty: 30 0RF ondansetron 4 mg tablet,disintegrating 4 mg PO Q8H PRN PRN (Reason: Nausea) Qty: 10 0RF hydroxyzine HCl 25 mg tablet 25 mg PO TID PRN (Reason: anxiety) Qty: 20 0RF ondansetron 4 mg tablet,disintegrating 4 mg PO Q8H PRN PRN (Reason: Nausea) Qty: 20 0RF ondansetron 4 mg tablet,disintegrating 4 mg PO Q8H PRN PRN (Reason: Nausea) Qty: 10 0RF dicyclomine 20 mg tablet 20 mg PO TID Qty: 20 0RF Primary Care Provider: Wilfred Nova Referrals: Wilfred Nova DO [Primary Care Provider] -
[2023-12-16] MEDS: Metoclopramide 10 MG/2 ML Vial IV (13:14)
[2023-12-16] MEDS: 0.9% Normal Saline (1000mL) 1,000 ML 1000 ML IV (13:14)
[2023-12-16] MEDS: LORazepam 2 MG/ML Syringe 1 MG IV (13:18)
[2023-12-16 13:19] VITALS: BMI 21.7
[2023-12-16 13:28] LABS: Absolute Neutrophil Count 16.2 X10^3/uL (2.0-7.7); Basophil# 0.04 X10^3/uL; Basophil% 0.2 % (0-1); Hematocrit 38.8 % (37-47); Hemoglobin 13.7 g/dL (12.0-15.0); Lymphocyte % 6.2 % (19-41); Mean Corp Hgb Conc 35.3 g/dL (32-36); Mean Corpuscular Hgb 31.1 pg (27.0-32.0); Mean Platelet Vol. 9.8 fl (6.2-12.0); Monocyte# 0.24 X10^3/uL; Monocyte% 1.4 % (0-10); NRBC Flagged by Analyzer 0 % (0-5); Neutrophil # 16.19 X10^3/uL (2.7-7.7); Neutrophil % 91.7 % (47-70); Platelet Count 376 K/mm3 (150-450); RBC Distribution Width CV 12.3 % (11.6-14.6); RBC Distribution Width SD 39.6 fl (35.1-43.9); Red Blood Count 4.41 M/mm3 (4.2-5.4); White Blood Count 17.7 K/mm3 (4.4-11.0)
--- NOTE | 2023-12-16 13:39 | CT_ITS ---
STUDY: CT ABDOMEN AND PELVIS WITH CONTRAST REASON FOR EXAM: Female, 23 years old. abdominal pain RLQ, vomitting RADIATION DOSAGE (If Supplied By Facility): CTDIvol = ( 8.42 ) mGy, DLP = ( 308.45 ) mGycm TECHNIQUE: Transaxial images were obtained from the dome of the diaphragm to the symphysis pubis without oral contrast. IV 100mL Isovue-300 was administered. Sagittal and coronal images were reconstructed. Individualized dose optimization techniques were used for this CT. COMPARISON: June 28, 2020 FINDINGS: The visualized lung bases are unremarkable. The visualized portions of the heart are within normal limits. Normal liver. Normal gallbladder and extrahepatic biliary system. Normal spleen. Normal pancreas. Normal bilateral adrenal glands. Normal right kidney. Normal left kidney. Normal visualized stomach. No evidence for small bowel obstruction. There is thickening of the ware of the terminal ileum which may be consistent with nonspecific ileitis.. Normal colon. The appendix is not filled with contrast however there is no definitive evidence for acute appendicitis. Normal abdominal aorta. Normal inferior vena cava. Normal retroperitoneum. Normal urinary bladder. Normal abdominal wall. Normal osseous structures. CT/Abdomen/Pelvis WITH Contrast IMPRESSION: No evidence for small bowel obstruction or definitive evidence for acute appendicitis Nonspecific thickening of the ware of the terminal ileum which may be consistent with ileitis. Electronically Signed: Shaq Hager MD at 17:03 EDT ,
[2023-12-16 13:41] LABS: Internal QC Validated? YES +Cl - CLEAR BKGD; Pregnancy, Serum, hCG Quali. NEGATIVE Negative
[2023-12-16 13:47] LABS: ALB/GLOB Ratio 1.1 RATIO (0.9-2.4); AST(SGOT) 18 U/L (15-37); Alanine Aminotransfer ALT/SGPT 16 U/L (13-56); Albumin, Serum 4.1 g/dL (3.2-5.0); Alkaline Phosphatase 104 U/L (45-117); Anion Gap 8 (5-15); BUN 11 mg/dL (7-18); BUN/Creat Ratio 12.8 RATIO (10-20); Calcium,Total 9.4 mg/dL (8.5-10.1); Chloride 109 mmol/L (98-107); Creatinine, Serum 0.86 mg/dL (0.55-1.02); EST Glomerular Filtration Rate 87 mL/min (>60); Est Glom Filt Rate - Afr Amer 105 mL/min (>60); Estimated Creatinine Clearance 84.88 ml/min; Globulin 3.8 g/dL (2.2-4.2); Glucose 135 mg/dL (74-106); Lipase 24 U/L (13-75); Potassium 3.5 mmol/L (3.5-5.1); Protein, Total 7.9 g/dL (6.4-8.2); Sodium Level 140 mmol/L (136-145)
[2023-12-16 14:00] VITALS: BP 97/63; PULSE 89; RESP 18; O2SAT 99
[2023-12-16 16:00] VITALS: BP 104/60; PULSE 102; RESP 16; O2SAT 96
== END 2023-12-16 18:05 | disposition home or self-care (01) ==
PROVIDERS: Emergency Provider Emergency Medicine; PCP Student in an Organized Health Care Education/Training Program; Visit Provider Emergency Medicine
DX: R10.9 Unspecified abdominal pain (principal); R11.2 Nausea with vomiting, unspecified; F17.290 Nicotine dependence, other tobacco product, uncomplicated; R19.7 Diarrhea, unspecified; F12.90 Cannabis use, unspecified, uncomplicated
CPT/HCPCS: 74177; 80053; 83690; 84703; 85025; 96361; 96374; 96375; 99283; J7030; Q9967

== ENCOUNTER → 2023-12-20 | Outpatient (CLI) | payer BC, SELFPAY | END | disposition home or self-care (01) | LOC: LABSPEC 13:25 | PROVIDERS: PCP Student in an Organized Health Care Education/Training Program; Referring Provider Emergency Medicine; Visit Provider Emergency Medicine | DX: K52.9 Noninfective gastroenteritis and colitis, unspecified (principal) | CPT/HCPCS: 87493; 87506 ==

== ENCOUNTER 2024-02-02 12:00 | Emergency (ER) | payer BC, SELFPAY ==
[2024-02-02 12:01] VITALS: BP 123/88; PULSE 113; RESP 18; TEMP 36; O2SAT 96; BMI 21.2
--- NOTE | 2024-02-02 12:21 | EX.ED.DYSGE1 ---
HPI <ARNULFO Sharma - Last Filed: 02/02/24 14:58> History of Present Illness Chief Complaint: Nausea/Vomiting/Diarrhea Narrative Narrative: Patient woke up at 8:30 AM and had diffuse cramping abdominal pain. She felt the urge to have a bowel movement but it would not come out. She states she sat there until she had a soft nonbloody bowel movement but then afterwards she vomited. She feels like she needs to have another BM. She reports years of ongoing cyclical vomiting and abdominal cramping issues. She states she had an endoscopy and colonoscopy in [place] in 2020 showing small hemorrhoids but nothing else acute. She states recently she was seen for the same issue and told she needs to be evaluated for Crohn's disease and she has an appointment in March with Dr. Adkins. She states she has been told her abdominal issues are from anxiety. She states she smokes weed a couple times a week. No frequent alcohol use. No abdominal surgical history. She currently takes no medications. [facility] <ARNULFO Sharma - Last Filed: 02/02/24 14:58> [facility] Medical History Generalized anxiety disorder Major depressive disorder, single episode, severe without psychosis Marijuana use Panic disorder Home Medications ?Medication ?Instructions ?Recorded ?Last Taken ?Type ondansetron 4 mg disintegrating 4 mg PO Q6H PRN nausea and 01/08/22 Unknown Rx tablet vomiting #10 tabs duloxetine 20 mg capsule,delayed 20 mg PO DAILY 03/18/22 Unknown History release famotidine 20 mg tablet 2 mg PO DAILY 03/18/22 Unknown History lorazepam 0.5 mg tablet (Ativan) 0.5 mg PO PRN PRN Anxiety 03/18/22 Unknown History hydroxyzine pamoate 25 mg capsule 25 mg PO TID PRN anxiety #20 caps 05/22/22 Unknown Rx (Vistaril) ondansetron HCl 4 mg tablet 4 mg PO Q6H PRN nausea and 05/22/22 Unknown Rx vomiting #15 tabs lorazepam 1 mg tablet (Ativan) 1 mg PO TID PRN anxiety #10 tabs 05/24/22 Unknown Rx buspirone 7.5 mg tablet 7.5 mg PO BID 30 days #60 tabs 07/22/22 Unknown Rx hydroxyzine pamoate 25 mg capsule 25 mg PO TID PRN PRN Anxiety #30 04/15/23 Unknown Rx CAPSULES ondansetron 4 mg disintegrating 4 mg PO Q8H PRN PRN Nausea #10 tabs 05/29/23 Unknown Rx tablet hydroxyzine HCl 25 mg tablet 25 mg PO TID PRN anxiety #20 tabs 06/23/23 Unknown Rx ondansetron 4 mg disintegrating 4 mg PO Q8H PRN PRN Nausea #20 tabs 06/23/23 Unknown Rx tablet dicyclomine 20 mg tablet 20 mg PO TID #20 tabs 10/03/23 Unknown Rx ondansetron 4 mg disintegrating 4 mg PO Q8H PRN PRN Nausea #10 tabs 10/03/23 Unknown Rx tablet prednisone 20 mg tablet 20 mg PO DAILY #30 tabs 12/16/23 Unknown Rx Allergy/AdvReac Type Severity Reaction Status Date / Time No Known Allergies Allergy Verified 02/02/24 12:00 Social History Smoking Status: Current every day smoker tobacco type: e-cigarettes substance use type: marijuana ROS <ARNULFO Sharma - Last Filed: 02/02/24 14:58> ROS ED ROS Narrative Constitutional: Negative for fever, chills. GI: Positive for abdominal pain, nausea, vomiting. Negative for diarrhea, melena, hematochezia. : Negative for dysuria, hematuria or frequency. EXAM <ARNULFO Sharma - Last Filed: 02/02/24 14:58> Physical Exam Narrative Exam Narrative: CONST: Patient crying sitting in bed. EYES: Normal inspection. NECK: Normal inspection. RESP: No respiratory distress, CTAB. CVS: Regular rate and rhythm, no murmur, no gallop. ABD: Soft with diffuse tenderness and she starts dry heaving after gentle palpation, no guarding or rebound, nondistended. SKIN: Color normal, no rash, warm, dry, intact. EXTREMITIES: Normal appearance, no pedal edema. NEURO: Alert and answering questions appropriately. PSYCH: Anxious and shaky. Const Vital Signs: 02/02/24 12:01 02/02/24 13:31 Temperature 96.8 F L 97.1 F L Temperature Source Temporal Pulse Rate 113 H 64 Respiratory Rate 18 18 Blood Pressure 123/88 H 114/65 Blood Pressure Mean 99 81 Pulse Ox 96 100 Oxygen Delivery Method Room Air <Dr. Michael Vieira MD - Last Filed: 02/02/24 13:52> Physical Exam Const Vital Signs: 02/02/24 12:01 02/02/24 13:31 Temperature 96.8 F L 97.1 F L Temperature Source Temporal Pulse Rate 113 H 64 Respiratory Rate 18 18 Blood Pressure 123/88 H 114/65 Blood Pressure Mean 99 81 Pulse Ox 96 100 Oxygen Delivery Method Room Air MDM <ARNULFO Sharma - Last Filed: 02/02/24 14:58> MDM MDM Narrative Medical decision making narrative: Patient with nausea and vomiting and abdominal pain. Long history of similar symptoms of unknown etiology. She appears extremely anxious but nontoxic. She is tachycardic at 113 with otherwise stable vital signs. Abdomen soft with generalized tenderness. No peritoneal signs. Labs show white count of 13.1. She has chronic leukocytosis and this is lower than recent. Electrolytes and renal function normal. LFTs and lipase unremarkable. negative. She was treated with IV fluids, Ativan and Reglan. She is much calmer, feeling better, tolerating water. I do not think she requires a CT scan. She had 1 recently showing inflammation of the terminal ileum and is scheduled to see GI. She states she has Zofran at home she can take as needed. She was discharged in stable condition. Differential: ? Viral gastroenteritis ? Cannabis hyperemesis syndrome ? IBS or IBD External records reviewed: 12/19/2023 enteric pathogen stool panel and C. difficile negative Insert attending I went to evaluate the patient and she was discharged by the nurses already. Lab Data Attestation: I reviewed the patient's lab results. Labs: Laboratory Results - last 24 hr 02/02/24 12:30 WBC 13.1 H RBC 4.67 Hgb 14.6 Hct 42.3 MCV 90.6 MCH 31.3 MCHC 34.5 RDW Std Deviation 41.1 RDW Coeff of Mario 12.5 Plt Count 313 MPV 10.0 Immature Gran % (Auto) 0.300 Neut % (Auto) 90.3 H Lymph % (Auto) 6.9 L [place] % (Auto) 2.1 Eos % (Auto) 0.2 Baso % (Auto) 0.2 Absolute Neuts (auto) 11.8 H Absolute Lymphs (auto) 0.91 Nucleated RBC % 0 Sodium 140 Potassium 3.5 Chloride 109 H Carbon Dioxide 21.0 Anion Gap 10 BUN 9 Creatinine 0.91 Estim Creat Clear Calc 80.22 Est GFR (MDRD) Af Amer 99 Est GFR (MDRD) Non-Af 82 BUN/Creatinine Ratio 9.9 L Glucose 132 H Calcium 9.5 Total Bilirubin 0.40 AST 14 L ALT 15 Alkaline Phosphatase 83 Total Protein 7.8 Albumin 4.2 Globulin 3.6 Albumin/Globulin Ratio 1.2 Lipase 44 Serum , Qual NEGATIVE <Dr. Michael Vieira MD - Last Filed: 02/02/24 13:52> MDM MDM Narrative Medical decision making narrative: Differential: ? Viral gastroenteritis ? Cannabis hyperemesis syndrome ? IBS or IBD External records reviewed: 12/19/2023 enteric pathogen stool panel and C. difficile negative Insert attending I went to evaluate the patient and she was discharged by the nurses already. Lab Data Labs: Laboratory Results - last 24 hr 02/02/24 12:30 WBC 13.1 H RBC 4.67 Hgb 14.6 Hct 42.3 MCV 90.6 MCH 31.3 MCHC 34.5 RDW Std Deviation 41.1 RDW Coeff of Mario 12.5 Plt Count 313 MPV 10.0 Immature Gran % (Auto) 0.300 Neut % (Auto) 90.3 H Lymph % (Auto) 6.9 L [place] % (Auto) 2.1 Eos % (Auto) 0.2 Baso % (Auto) 0.2 Absolute Neuts (auto) 11.8 H Absolute Lymphs (auto) 0.91 Nucleated RBC % 0 Sodium 140 Potassium 3.5 Chloride 109 H Carbon Dioxide 21.0 Anion Gap 10 BUN 9 Creatinine 0.91 Estim Creat Clear Calc 80.22 Est GFR (MDRD) Af Amer 99 Est GFR (MDRD) Non-Af 82 BUN/Creatinine Ratio 9.9 L Glucose 132 H Calcium 9.5 Total Bilirubin 0.40 AST 14 L ALT 15 Alkaline Phosphatase 83 Total Protein 7.8 Albumin 4.2 Globulin 3.6 Albumin/Globulin Ratio 1.2 Lipase 44 Serum , Qual NEGATIVE Discharge Plan Triage Chief Complaint: Nausea/Vomiting/Diarrhea ED Midlevel Provider: Esperanza Acevedo ED Provider: Michael Vieira Dx/Rx/DC Orders Clinical Impression: Abdominal pain of unknown etiology, Nausea and vomiting Instructions: Abdominal Pain, ED Vomiting (Adult) Prescriptions: No Action ondansetron 4 mg tablet,disintegrating 4 mg PO Q6H PRN (Reason: nausea and vomiting) Qty: 10 0RF famotidine 20 mg tablet 2 mg PO DAILY Patient Comments: TAKE 1 TABLET BY MOUTH TWICE A DAY lorazepam [Ativan] 0.5 mg tablet 0.5 mg PO PRN PRN (Reason: Anxiety) Patient Comments: TAKE 1 TABLET BY MOUTH TWICE DAILY NEEDED FOR UP TO 30 DAYS. duloxetine 20 mg capsule,delayed release(DR/EC) 20 mg PO DAILY Patient Comments: TAKE 1 CAPSULE BY MOUTH ONCE DAILY hydroxyzine pamoate [Vistaril] 25 mg capsule 25 mg PO TID PRN (Reason: anxiety) Qty: 20 0RF ondansetron HCl 4 mg tablet 4 mg PO Q6H PRN (Reason: nausea and vomiting) Qty: 15 0RF lorazepam [Ativan] 1 mg tablet 1 mg PO TID PRN (Reason: anxiety) Qty: 10 0RF buspirone 7.5 mg tablet 7.5 mg PO BID 30 Days Qty: 60 0RF hydroxyzine pamoate [hydroxyzine pamoate] 25 mg capsule 25 mg PO TID PRN PRN (Reason: Anxiety) Qty: 30 0RF ondansetron 4 mg tablet,disintegrating 4 mg PO Q8H PRN PRN (Reason: Nausea) Qty: 10 0RF hydroxyzine HCl 25 mg tablet 25 mg PO TID PRN (Reason: anxiety) Qty: 20 0RF ondansetron 4 mg tablet,disintegrating 4 mg PO Q8H PRN PRN (Reason: Nausea) Qty: 20 0RF ondansetron 4 mg tablet,disintegrating 4 mg PO Q8H PRN PRN (Reason: Nausea) Qty: 10 0RF dicyclomine 20 mg tablet 20 mg PO TID Qty: 20 0RF prednisone 20 mg tablet 20 mg PO DAILY Qty: 30 0RF Primary Care Provider: Wilfred Nova Referrals: Wilfred Nova DO [Primary Care Provider] - Activity Restrictions/Additional Instructions: Take the Zofran you have at home as needed and follow-up with Dr. Adkins as scheduled. Print Language: Romansh Disposition Disposition: Home, Self Care Discharge Date/Time: 02/02/24 13:32
[2024-02-02] MEDS: 0.9% Normal Saline (1000mL) 1,000 ML 999 ML IV (12:28)
[2024-02-02] MEDS: LORazepam 2 MG/ML Syringe 1 MG IV (12:29)
[2024-02-02] MEDS: Metoclopramide 10 MG/2 ML Vial 5 MG IV (12:29)
[2024-02-02 12:36] LABS: Absolute Lymphocyte Count 0.91 X10^3/uL (0.83-4.51); Absolute Neutrophil Count 11.8 X10^3/uL (2.0-7.7); Basophil# 0.03 X10^3/uL; Basophil% 0.2 % (0-1); Eosinophil# 0.02 X10^3/uL; Eosinophils% 0.2 % (0-5); Hematocrit 42.3 % (37-47); Hemoglobin 14.6 g/dL (12.0-15.0); Lymphocyte # 0.91 X10^3/ul (0.83-4.51); Lymphocyte % 6.9 % (19-41); Mean Corp Hgb Conc 34.5 g/dL (32-36); Mean Corpuscular Hgb 31.3 pg (27.0-32.0); Mean Corpuscular Volume 90.6 fL (81-99); Monocyte# 0.28 X10^3/uL; Monocyte% 2.1 % (0-10); NRBC Flagged by Analyzer 0 % (0-5); Neutrophil # 11.82 X10^3/uL (2.7-7.7); Neutrophil % 90.3 % (47-70); Platelet Count 313 K/mm3 (150-450); RBC Distribution Width CV 12.5 % (11.6-14.6); RBC Distribution Width SD 41.1 fl (35.1-43.9); Red Blood Count 4.67 M/mm3 (4.2-5.4); White Blood Count 13.1 K/mm3 (4.4-11.0)
[2024-02-02 12:46] LABS: Internal QC Validated? YES +Cl - CLEAR BKGD; Pregnancy, Serum, hCG Quali. NEGATIVE Negative
[2024-02-02 12:49] LABS: ALB/GLOB Ratio 1.2 RATIO (0.9-2.4); AST(SGOT) 14 U/L (15-37); Alanine Aminotransfer ALT/SGPT 15 U/L (13-56); Albumin, Serum 4.2 g/dL (3.2-5.0); Alkaline Phosphatase 83 U/L (45-117); Anion Gap 10 (5-15); BUN 9 mg/dL (7-18); BUN/Creat Ratio 9.9 RATIO (10-20); Calcium,Total 9.5 mg/dL (8.5-10.1); Chloride 109 mmol/L (98-107); Creatinine, Serum 0.91 mg/dL (0.55-1.02); EST Glomerular Filtration Rate 82 mL/min (>60); Est Glom Filt Rate - Afr Amer 99 mL/min (>60); Estimated Creatinine Clearance 80.22 ml/min; Globulin 3.6 g/dL (2.2-4.2); Glucose 132 mg/dL (74-106); Lipase 44 U/L (13-75); Potassium 3.5 mmol/L (3.5-5.1); Protein, Total 7.8 g/dL (6.4-8.2); Sodium Level 140 mmol/L (136-145)
[2024-02-02 13:31] VITALS: BP 114/65; PULSE 64; RESP 18; TEMP 36.2; O2SAT 100
== END 2024-02-02 13:32 | disposition home or self-care (01) ==
PROVIDERS: Physician Assistant; Emergency Provider Emergency Medicine; PCP Student in an Organized Health Care Education/Training Program; Visit Provider Emergency Medicine
DX: R10.9 Unspecified abdominal pain (principal); R11.2 Nausea with vomiting, unspecified; F17.290 Nicotine dependence, other tobacco product, uncomplicated; F12.90 Cannabis use, unspecified, uncomplicated
CPT/HCPCS: 80053; 83690; 84703; 85025; 96374; 96375; 96376; 99283; J7030

== ENCOUNTER 2024-02-28 07:54 | Emergency (ER) | payer BC, SELFPAY ==
[2024-02-28 07:55] VITALS: BP 127/86; PULSE 73; RESP 18; TEMP 36.1; O2SAT 98; BMI 21.6
--- NOTE | 2024-02-28 08:08 | ED.VIS.GI ---
HPI HPI - GI History of Present Illness Chief Complaint: Abd Pain Detail of Chief Complaint: Abdominal pain Informant: patient Narrative Narrative: Patient presents with abdominal pain that she has had chronically for years since 2019. She has had multiple visits to the emergency department for same. She is scheduled to see soap chipper next month. She states that she wakes up every morning and her stomach is in knots and immediately asked the have a bowel movement. She denies any blood in her stool. She denies black tarry stool. She tells me she had an EGD and colonoscopy in 2020 that were essentially unremarkable. Patient just did not feel well this morning. She had nausea but no vomiting. She states that she sometimes will alternate from constipation to diarrhea. Denies urinary symptoms. Has not missed a menstrual period PFSH PFS Medical History Generalized anxiety disorder Major depressive disorder, single episode, severe without psychosis Marijuana use Panic disorder Home Medications ?Medication ?Instructions ?Recorded ?Last Taken ?Type ondansetron 4 mg disintegrating 4 mg PO Q6H PRN nausea and 01/08/22 Unknown Rx tablet vomiting #10 tabs duloxetine 20 mg capsule,delayed 20 mg PO DAILY 03/18/22 Unknown History release famotidine 20 mg tablet 2 mg PO DAILY 03/18/22 Unknown History lorazepam 0.5 mg tablet (Ativan) 0.5 mg PO PRN PRN Anxiety 03/18/22 Unknown History hydroxyzine pamoate 25 mg capsule 25 mg PO TID PRN anxiety #20 caps 05/22/22 Unknown Rx (Vistaril) ondansetron HCl 4 mg tablet 4 mg PO Q6H PRN nausea and 05/22/22 Unknown Rx vomiting #15 tabs lorazepam 1 mg tablet (Ativan) 1 mg PO TID PRN anxiety #10 tabs 05/24/22 Unknown Rx buspirone 7.5 mg tablet 7.5 mg PO BID 30 days #60 tabs 07/22/22 Unknown Rx hydroxyzine pamoate 25 mg capsule 25 mg PO TID PRN PRN Anxiety #30 04/15/23 Unknown Rx CAPSULES ondansetron 4 mg disintegrating 4 mg PO Q8H PRN PRN Nausea #10 tabs 05/29/23 Unknown Rx tablet hydroxyzine HCl 25 mg tablet 25 mg PO TID PRN anxiety #20 tabs 06/23/23 Unknown Rx ondansetron 4 mg disintegrating 4 mg PO Q8H PRN PRN Nausea #20 tabs 06/23/23 Unknown Rx tablet dicyclomine 20 mg tablet 20 mg PO TID #20 tabs 10/03/23 Unknown Rx ondansetron 4 mg disintegrating 4 mg PO Q8H PRN PRN Nausea #10 tabs 10/03/23 Unknown Rx tablet prednisone 20 mg tablet 20 mg PO DAILY #30 tabs 12/16/23 Unknown Rx dicyclomine 20 mg tablet 20 mg PO TID PRN abdominal 02/28/24 Unknown Rx discomfort #14 tabs hydroxyzine pamoate 25 mg capsule 25 mg PO TID PRN anxiety #10 caps 02/28/24 Unknown Rx (Vistaril) Allergy/AdvReac Type Severity Reaction Status Date / Time No Known Allergies Allergy Verified 02/28/24 07:55 Social History Smoking Status: Current every day smoker tobacco type: e-cigarettes substance use type: marijuana ROS ROS ED Review of Systems ROS Unobtainable: other Constitutional Constitutional ED: Reports lethargy; Denies chills, fever(s), sweats or weight loss Eyes Eyes: Denies blurry vision, change in vision or diplopia ENT ENT ED: Denies rhinorrhea or sore throat Cardiovascular Cardiovascular: Denies chest pain, orthopnea or racing heartbeat Respiratory/Chest Respiratory/Chest: Denies cough, dyspnea, dyspnea on exertion, orthopnea or sputum Gastrointestinal Gastrointestinal: Reports abdominal pain and nausea; Denies diarrhea or vomiting Genitourinary Genitourinary ED: Denies dysuria, hematuria or urinary frequency Musculoskeletal Musculoskeletal: Denies arthralgias, back pain, myalgias or neck pain Integumentary Denies abscess, Abrasions or rash Neurologic Neurologic: Denies headache(s) or weakness Psychiatric Psychiatric: Denies anxiety, depression or suicidal thoughts Endocrine Endocrinology: Denies polydipsia, polyphagia or polyuria Hematologic/Lymphatic Hematologic/Lymphatic: Denies easy bleeding, easy bruising or lymphadenopathy Allergic/Immunologic Allergic/Immunologic ED: Denies mouth swelling, tongue swelling or urticaria EXAM Physical Exam Const Vital Signs: 02/28/24 07:55 Temperature 96.9 F L Temperature Source Temporal Pulse Rate 73 Respiratory Rate 18 Blood Pressure 127/86 H Blood Pressure Mean 99 Pulse Ox 98 Oxygen Delivery Method Room Air Positive well nourished and well developed General Appearance ED: well developed and NAD HEENT Reports TM's clear and moist mucous membranes normocephalic and atraumatic; Negative for trauma or tenderness Tympanic Membrane ED: Yes TM's clear Eyes PERRL and EOMs intact bilaterally General Eye ED: Negative for pale conjunctiva or scleral icterus Neck no lymphadenopathy, supple and no JVD General: Negative for tenderness Chest Wall inspection of chest normal and palpation of chest normal Chest: Negative for tenderness Resp normal respiratory effort and clear to auscultation bilaterally Effort and Inspection: Negative for respiratory distress or pain with movement Auscultation: Negative for rhonchi, wheezes or diminished lung sounds Cardio regular rate, regular rhythm, S1 normal heart sound, S2 normal heart sound and no murmurs Peripheral Pulses: pulses 2+ throughout GI normal to inspection, nondistended, normoactive bowel sounds, soft to palpation, non-tender, non-distended and no masses Back/Spine no CVA tenderness and no thoracic nor lumbar tenderness Extremity normal to inspection General Extremety ED: Negative for edema General Extremity: Negative for edema Neuro oriented x3, CN's II-XII intact bilaterally, no sensory deficits noted and gait normal Sensorium / Orientation: awake, alert, oriented to person, oriented to place and oriented to time Motor Exam: strength 5/5 throughout and strength abnormal Psych mental status grossly normal Skin no rashes or lesions noted and no wounds MDM MDM MDM Narrative Medical decision making narrative: Patient presents with chronic abdominal pain and history of anxiety. Complaining of abdominal cramping and intermittent history of constipation and sometimes diarrhea. Clinically she looks well. Abdomen is benign. IV line established. CBC with differential obtained showed white count of 7.8 with hemoglobin 13.8 and platelet count of 282. Chemistries unremarkable. LFTs were normal. Lipase normal at 46. hCG was negative. Urinalysis was normal. While in the department she received a milligram of Ativan IV as well as Bentyl and Zofran. She felt markedly improved after treatment. At this point she will be discharged to home. She is advised to keep her appointment with GI. Will start her on Bentyl. Will also order Vistaril for anxiety. Advised her worsening pain, fever, vomiting, or condition worsening way. Lab Data Attestation: I reviewed the patient's lab results. Labs: Laboratory Results - last 24 hr 02/28/24 08:22 WBC 7.8 RBC 4.43 Hgb 13.8 Hct 40.3 MCV 91.0 MCH 31.2 MCHC 34.2 RDW Std Deviation 41.5 RDW Coeff of Mario 12.4 Plt Count 282 MPV 10.3 Immature Gran % (Auto) 0.100 Neut % (Auto) 59.4 Lymph % (Auto) 30.1 [place] % (Auto) 7.2 Eos % (Auto) 2.7 Baso % (Auto) 0.5 Absolute Neuts (auto) 4.7 Absolute Lymphs (auto) 2.35 Nucleated RBC % 0 Sodium 136 Potassium 3.6 Chloride 107 Carbon Dioxide 25.0 Anion Gap 4 L BUN 11 Creatinine 0.79 Estim Creat Clear Calc 92.40 Est GFR (MDRD) Af Amer 117 Est GFR (MDRD) Non-Af 97 BUN/Creatinine Ratio 14.0 Glucose 103 Calcium 9.0 Total Bilirubin 0.40 AST 11 L ALT 12 L Alkaline Phosphatase 84 Total Protein 7.5 Albumin 3.9 Globulin 3.6 Albumin/Globulin Ratio 1.1 Lipase 46 Serum , Qual NEGATIVE Urine Color Yellow Urine Clarity Clear Urine pH 6.0 Ur Specific [place] 1.010 Urine Protein Negative Urine Glucose (UA) Normal Urine Ketones Negative Urine Occult Blood Negative Urine Nitrite Negative Urine Bilirubin Negative Urine Urobilinogen Normal Ur Leukocyte Esterase Negative Urine RBC 0 SEEN Urine WBC 0 SEEN Ur Squamous Epith Cells 0-5 SEEN Urine Bacteria 0 SEEN Urine Mucus 0 SEEN Discharge Plan Triage Chief Complaint: Abd Pain ED Provider: Darrin Wright Dx/Rx/DC Orders Clinical Impression: Abdominal pain, Anxiety Instructions: ED Abdominal Pain Unkn Cause Fem, ED Anxiety Reaction Prescriptions: New hydroxyzine pamoate [Vistaril] 25 mg capsule 25 mg PO TID PRN (Reason: anxiety) Qty: 10 0RF dicyclomine 20 mg tablet 20 mg PO TID PRN (Reason: abdominal discomfort) Qty: 14 0RF No Action ondansetron 4 mg tablet,disintegrating 4 mg PO Q6H PRN (Reason: nausea and vomiting) Qty: 10 0RF famotidine 20 mg tablet 2 mg PO DAILY Patient Comments: TAKE 1 TABLET BY MOUTH TWICE A DAY lorazepam [Ativan] 0.5 mg tablet 0.5 mg PO PRN PRN (Reason: Anxiety) Patient Comments: TAKE 1 TABLET BY MOUTH TWICE DAILY NEEDED FOR UP TO 30 DAYS. duloxetine 20 mg capsule,delayed release(DR/EC) 20 mg PO DAILY Patient Comments: TAKE 1 CAPSULE BY MOUTH ONCE DAILY hydroxyzine pamoate [Vistaril] 25 mg capsule 25 mg PO TID PRN (Reason: anxiety) Qty: 20 0RF ondansetron HCl 4 mg tablet 4 mg PO Q6H PRN (Reason: nausea and vomiting) Qty: 15 0RF lorazepam [Ativan] 1 mg tablet 1 mg PO TID PRN (Reason: anxiety) Qty: 10 0RF buspirone 7.5 mg tablet 7.5 mg PO BID 30 Days Qty: 60 0RF hydroxyzine pamoate [hydroxyzine pamoate] 25 mg capsule 25 mg PO TID PRN PRN (Reason: Anxiety) Qty: 30 0RF ondansetron 4 mg tablet,disintegrating 4 mg PO Q8H PRN PRN (Reason: Nausea) Qty: 10 0RF hydroxyzine HCl 25 mg tablet 25 mg PO TID PRN (Reason: anxiety) Qty: 20 0RF ondansetron 4 mg tablet,disintegrating 4 mg PO Q8H PRN PRN (Reason: Nausea) Qty: 20 0RF ondansetron 4 mg tablet,disintegrating 4 mg PO Q8H PRN PRN (Reason: Nausea) Qty: 10 0RF dicyclomine 20 mg tablet 20 mg PO TID Qty: 20 0RF prednisone 20 mg tablet 20 mg PO DAILY Qty: 30 0RF Primary Care Provider: Wilfred Nova Referrals: Wilfred Nova DO [Primary Care Provider] - 3-5 Days Activity Restrictions/Additional Instructions: Keep your appointment with soap chipper as scheduled. Print Language: Spanish Disposition Disposition: Home, Self Care
[2024-02-28] MEDS: Ondansetron 4 MG/2 ML Vial IV (08:20)
[2024-02-28] MEDS: Dicyclomine 10 MG Capsule 20 MG PO (08:20)
[2024-02-28] MEDS: LORazepam 2 MG/ML Syringe 1 MG IV (08:20)
[2024-02-28] MEDS: 0.9% Normal Saline (1000mL) 1,000 ML 125 ML IV (08:22)
[2024-02-28 08:33] LABS: Bacteria 0 SEEN /hpf (None Seen); Mucous, Urine 0 SEEN /hpf (<or=2+); Red Blood Cells-Urine 0 SEEN /hpf (0-5); White Blood Cells 0 SEEN /hpf (0-5)
[2024-02-28 08:39] LABS: Color, Urine Yellow (Yellow); Glucose, Dipstick Normal (Normal); Ketone-Dipstick Negative (Negative); Leukocyte Esterase-Dipstick Negative /ul (Negative); Nitrite-Dipstick Negative (Negative); Occult Blood-Urine Negative /ul (Negative); Protein-Dipstick Negative (Negative); Urine Bilirubin Dipstick Negative (Negative); Urine Clarity Clear (Clear); Urine Urobilinogen Normal (Normal)
[2024-02-28 08:43] LABS: Absolute Lymphocyte Count 2.35 X10^3/uL (0.83-4.51); Absolute Neutrophil Count 4.7 X10^3/uL (2.0-7.7); Basophil# 0.04 X10^3/uL; Basophil% 0.5 % (0-1); Eosinophil# 0.21 X10^3/uL; Eosinophils% 2.7 % (0-5); Hematocrit 40.3 % (37-47); Hemoglobin 13.8 g/dL (12.0-15.0); Internal QC Validated? YES +Cl - CLEAR BKGD; Lymphocyte # 2.35 X10^3/ul (0.83-4.51); Lymphocyte % 30.1 % (19-41); Mean Corp Hgb Conc 34.2 g/dL (32-36); Mean Corpuscular Hgb 31.2 pg (27.0-32.0); Mean Platelet Vol. 10.3 fl (6.2-12.0); Monocyte# 0.56 X10^3/uL; Monocyte% 7.2 % (0-10); NRBC Flagged by Analyzer 0 % (0-5); Neutrophil # 4.65 X10^3/uL (2.7-7.7); Neutrophil % 59.4 % (47-70); Platelet Count 282 K/mm3 (150-450); Pregnancy, Serum, hCG Quali. NEGATIVE Negative; RBC Distribution Width CV 12.4 % (11.6-14.6); RBC Distribution Width SD 41.5 fl (35.1-43.9); Record Kit Lot#, Serum Preg. HCG0000772476; Red Blood Count 4.43 M/mm3 (4.2-5.4); White Blood Count 7.8 K/mm3 (4.4-11.0)
[2024-02-28 08:48] LABS: Squamous Epithelial Cells - UA 0-5 SEEN /hpf (5-10)
[2024-02-28 08:50] LABS: ALB/GLOB Ratio 1.1 RATIO (0.9-2.4); AST(SGOT) 11 U/L (15-37); Alanine Aminotransfer ALT/SGPT 12 U/L (13-56); Albumin, Serum 3.9 g/dL (3.2-5.0); Alkaline Phosphatase 84 U/L (45-117); Anion Gap 4 (5-15); BUN 11 mg/dL (7-18); Chloride 107 mmol/L (98-107); Creatinine, Serum 0.79 mg/dL (0.55-1.02); EST Glomerular Filtration Rate 97 mL/min (>60); Est Glom Filt Rate - Afr Amer 117 mL/min (>60); Globulin 3.6 g/dL (2.2-4.2); Glucose 103 mg/dL (74-106); Lipase 46 U/L (13-75); Potassium 3.6 mmol/L (3.5-5.1); Protein, Total 7.5 g/dL (6.4-8.2); Sodium Level 136 mmol/L (136-145)
[2024-02-28 09:57] VITALS: BP 96/41; PULSE 64; RESP 16; TEMP 35.6; O2SAT 99
== END 2024-02-28 09:58 | disposition home or self-care (01) ==
PROVIDERS: Emergency Provider Emergency Medicine; PCP Student in an Organized Health Care Education/Training Program; Visit Provider Emergency Medicine
DX: R10.9 Unspecified abdominal pain (principal); F41.9 Anxiety disorder, unspecified; F17.290 Nicotine dependence, other tobacco product, uncomplicated; F12.90 Cannabis use, unspecified, uncomplicated
CPT/HCPCS: 80053; 81001; 83690; 84703; 85025; 96361; 96374; 96375; 96376; 99283; J7030; A4216; J2405

== ENCOUNTER → 2024-03-13 | Outpatient (CLI) | payer BC, SELFPAY ==
[2024-03-13 10:25] LABS: Absolute Lymphocyte Count 1.62 X10^3/uL (0.83-4.51); Absolute Neutrophil Count 2.9 X10^3/uL (2.0-7.7); Basophil# 0.03 X10^3/uL; Basophil% 0.6 % (0-1); Eosinophil# 0.17 X10^3/uL; Eosinophils% 3.3 % (0-5); Erythrocyte Sedimentation Rate 1 mm/hr (0-30); Hematocrit 41.9 % (37-47); Hemoglobin 14.3 g/dL (12.0-15.0); Lymphocyte # 1.62 X10^3/ul (0.83-4.51); Lymphocyte % 31.7 % (19-41); Mean Corp Hgb Conc 34.1 g/dL (32-36); Mean Corpuscular Volume 90.9 fL (81-99); Mean Platelet Vol. 10.1 fl (6.2-12.0); Monocyte# 0.35 X10^3/uL; Monocyte% 6.8 % (0-10); NRBC Flagged by Analyzer 0 % (0-5); Neutrophil # 2.93 X10^3/uL (2.7-7.7); Neutrophil % 57.4 % (47-70); Platelet Count 300 K/mm3 (150-450); RBC Distribution Width CV 12.5 % (11.6-14.6); RBC Distribution Width SD 41.5 fl (35.1-43.9); Red Blood Count 4.61 M/mm3 (4.2-5.4); White Blood Count 5.1 K/mm3 (4.4-11.0)
[2024-03-13 10:57] LABS: CRP < 2.90 mg/L (0.0-3.0)
[2024-03-17 13:08] LABS: ACCA 14 units (0-90); ALCA 27 units (0-60); AMCA 41 units (0-100); gASCA 8 units (0-50)
== END | disposition home or self-care (01) ==
LOC: LAB 09:45
PROVIDERS: PCP Student in an Organized Health Care Education/Training Program; Referring Provider Student in an Organized Health Care Education/Training Program; Visit Provider Student in an Organized Health Care Education/Training Program
DX: R11.15 Cyclical vomiting syndrome unrelated to migraine (principal); R10.9 Unspecified abdominal pain
CPT/HCPCS: 36415; 83516; 85025; 85652; 86036; 86140; 86671

== ENCOUNTER 2024-03-23 09:53 | Emergency (ER) | payer BC, SELFPAY ==
[2024-03-23 09:54] VITALS: BP 165/148; PULSE 110; RESP 28; TEMP 35.8; O2SAT 97
[2024-03-23] MEDS: 0.9% Normal Saline (1000mL) 1,000 ML 999 ML IV (10:17)
[2024-03-23] MEDS: Haloperidol Lactate 5 MG/ML Vial 1 MG IV (10:17)
[2024-03-23 10:24] LABS: Absolute Lymphocyte Count 1.16 X10^3/uL (0.83-4.51); Basophil# 0.06 X10^3/uL; Basophil% 0.4 % (0-1); Eosinophil# 0.04 X10^3/uL; Eosinophils% 0.3 % (0-5); Hematocrit 41.5 % (37-47); Hemoglobin 14.2 g/dL (12.0-15.0); Lymphocyte # 1.16 X10^3/ul (0.83-4.51); Lymphocyte % 7.3 % (19-41); Mean Corp Hgb Conc 34.2 g/dL (32-36); Mean Corpuscular Hgb 30.4 pg (27.0-32.0); Mean Corpuscular Volume 88.9 fL (81-99); Monocyte% 3.2 % (0-10); NRBC Flagged by Analyzer 0 % (0-5); Neutrophil # 13.98 X10^3/uL (2.7-7.7); Neutrophil % 88.4 % (47-70); Platelet Count 298 K/mm3 (150-450); RBC Distribution Width CV 12.3 % (11.6-14.6); RBC Distribution Width SD 39.8 fl (35.1-43.9); Red Blood Count 4.67 M/mm3 (4.2-5.4); White Blood Count 15.8 K/mm3 (4.4-11.0)
--- NOTE | 2024-03-23 10:36 | EDS_ITS ---
HPI History of Present Illness Chief Complaint: Abd Pain Narrative Narrative: Patient is a 23-year-old female past medical history of generalized anxiety disorder, depression, panic disorder, marijuana use who presented to the emergency department with chief complaint of abdominal pain, nausea, vomiting not feeling well. Patient states that she woke up this morning with her symptoms she states that she tried to take Levsin as this has been going on for quite some time and has seen multiple doctors for this she states that she has been referred to gastroenterology which she has an appointment coming up in the next few weeks. Patient states that she did not have any improvement with her medication that she took prompting her to come here for further evaluation management. Patient does state that she does smoke marijuana and states that she smoked marijuana last night. Denies any tobacco or alcohol use. [facility] Medical History Marijuana use Panic disorder Major depressive disorder, single episode, severe without psychosis Generalized anxiety disorder Home Medications ?Medication ?Instructions ?Recorded ?Last Taken ?Type ondansetron 4 mg disintegrating 4 mg PO Q6H PRN nausea and 01/08/22 Unknown Rx tablet vomiting #10 tabs famotidine 20 mg tablet 2 mg PO DAILY 03/18/22 Unknown History lorazepam 0.5 mg tablet (Ativan) 0.5 mg PO PRN PRN Anxiety 03/18/22 Unknown History hydroxyzine pamoate 25 mg capsule 25 mg PO TID PRN anxiety #20 caps 05/22/22 Unknown Rx (Vistaril) ondansetron HCl 4 mg tablet 4 mg PO Q6H PRN nausea and 05/22/22 Unknown Rx vomiting #15 tabs lorazepam 1 mg tablet (Ativan) 1 mg PO TID PRN anxiety #10 tabs 05/24/22 Unknown Rx buspirone 7.5 mg tablet 7.5 mg PO BID 30 days #60 tabs 07/22/22 Unknown Rx hydroxyzine pamoate 25 mg capsule 25 mg PO TID PRN PRN Anxiety #30 04/15/23 Unknown Rx CAPSULES ondansetron 4 mg disintegrating 4 mg PO Q8H PRN PRN Nausea #10 tabs 05/29/23 Unknown Rx tablet hydroxyzine HCl 25 mg tablet 25 mg PO TID PRN anxiety #20 tabs 06/23/23 Unknown Rx ondansetron 4 mg disintegrating 4 mg PO Q8H PRN PRN Nausea #20 tabs 06/23/23 Unknown Rx tablet ondansetron 4 mg disintegrating 4 mg PO Q8H PRN PRN Nausea #10 tabs 10/03/23 Unknown Rx tablet prednisone 20 mg tablet 20 mg PO DAILY #30 tabs 12/16/23 Unknown Rx hydroxyzine pamoate 25 mg capsule 25 mg PO TID PRN anxiety #10 caps 02/28/24 Unknown Rx (Vistaril) dicyclomine 20 mg tablet 20 mg PO TID PRN abdominal 03/13/24 Unknown Rx discomfort #30 tabs Allergy/AdvReac Type Severity Reaction Status Date / Time No Known Allergies Allergy Verified 02/28/24 07:55 Social History Smoking Status: Current every day smoker tobacco type: e-cigarettes substance use type: marijuana ROS ROS ED ROS Narrative Constitutional: Denies any fevers, chills, headaches, lightheadedness Eyes: Denies change in vision double vision blurry vision Cardiovascular: Denies chest pain or palpitations Respiratory: Denies cough or wheezing shortness of breath Abdomen: Complains of abdominal discomfort as noted above as well as nausea vomiting denies diarrhea : Denies painful urination, hematuria, polyuria Neurological: Denies numbness, weakness, tingling Musculoskeletal: Denies back pain Skin: Denies rashes or lesions EXAM Physical Exam Narrative Exam Narrative: General: Patient was extremely anxious and tearful during exam Head: Atraumatic, normocephalic Eyes: PERRL bilaterally, EOMI, no conjunctival injection noted Neck: Soft, supple, trachea midline Cardiovascular: Regular rate and rhythm no murmurs gallops rubs noted Respiratory: Clear to auscultation bilaterally no rales rhonchi or wheeze noted Abdomen: Soft, nondistended, no tenderness palpation, no rebound or guarding on exam, bowel sounds present x 4 Extremities: +5/5 strength noted in the bilateral upper and lower extremities, no pedal edema on exam Neurological: Patient following commands knew that she is at [facility] year is 2023. Psychiatric: Patient is extremely anxious and tearful during exam Skin: Warm, dry, intact no rashes or lesions noted Const Vital Signs: 03/23/24 09:54 08/05/24 11:54 Temperature 96.5 F L Temperature Source Temporal Pulse Rate 110 H 81 Respiratory Rate 28 H 18 Blood Pressure 165/148 H 100/58 L Blood Pressure Mean 153 72 Pulse Ox 97 98 Oxygen Delivery Method Room Air MDM MDM MDM Narrative Medical decision making narrative: Patient is a 23-year-old female who presented to the emergency department chief complaint of nausea vomiting abdominal pain. Once workup is obtained reviewed she will be reevaluated. On the differential diagnosis includes but not limited to cyclical vomiting syndrome secondary to marijuana use, viral gastroenteritis, UTI, . Patient will be given Haldol and IV fluids. Patient CBC reviewed and showed a white blood count of 15,000, hemoglobin 14.2, platelet count normal at 298. Patient's potassium was 3.3 she was given 40 mill equivalents of potassium replacement here in the emergency department tolerated this well. Patient's creatinine normal at 0.84, AST and ALT were 18 and 14 respectively with a normal total bilirubin of 1. Patient lipase normal at 28, urinalysis did not reveal any evidence of infection. Patient's test was negative. On reevaluation of the patient she is feeling much improved when she arrived she would like to go home at this point in time. I did discuss the importance with her of discontinue marijuana use and notify her that she continues to use marijuana her symptoms will likely continue to persist. She verbalized understanding of this. She was encouraged to still follow-up with her thermospray operator at her next scheduled appointment coming up. She was encouraged to follow-up with her primary care physician outpatient setting. She was encouraged return with worsening symptoms or other concerns. On reexamination of her abdomen her abdomen is benign no tenderness to palpation no rebound or guarding, bowel sounds present x 4 all question concerns answered she was discharged home in stable condition. Lab Data Labs: Laboratory Results - last 24 hr 03/23/24 03/23/24 10:10 10:50 WBC 15.8 H RBC 4.67 Hgb 14.2 Hct 41.5 MCV 88.9 MCH 30.4 MCHC 34.2 RDW Std Deviation 39.8 RDW Coeff of Mario 12.3 Plt Count 298 MPV 10.0 Immature Gran % (Auto) 0.400 Neut % (Auto) 88.4 H Lymph % (Auto) 7.3 L Pacific % (Auto) 3.2 Eos % (Auto) 0.3 Baso % (Auto) 0.4 Absolute Neuts (auto) 14.0 H Absolute Lymphs (auto) 1.16 Nucleated RBC % 0 Sodium 138 Potassium 3.3 L Chloride 108 H Carbon Dioxide 22.0 Anion Gap 8 BUN 12 Creatinine 0.84 Est GFR (MDRD) Af Amer 108 Est GFR (MDRD) Non-Af 89 BUN/Creatinine Ratio 14.2 Glucose 123 H Calcium 9.4 Total Bilirubin 1.00 AST 18 ALT 14 Alkaline Phosphatase 84 Total Protein 8.0 Albumin 4.3 Globulin 3.7 Albumin/Globulin Ratio 1.2 Lipase 28 Urine Color Yellow Urine Clarity Sl. Cloudy Urine pH 6.0 Ur Specific Avery 1.020 Urine Protein 15 H Urine Glucose (UA) Normal Urine Ketones 5 H Urine Occult Blood Negative Urine Nitrite Negative Urine Bilirubin Negative Urine Urobilinogen Normal Ur Leukocyte Esterase Negative Urine Test Negative Discharge Plan Triage Chief Complaint: Abd Pain ED Provider: Tyler Castillo Dx/Rx/DC Orders Clinical Impression: Cyclical vomiting, Abdominal pain of unknown etiology Prescriptions: No Action dicyclomine 20 mg tablet 20 mg PO TID PRN (Reason: abdominal discomfort) Qty: 30 3RF ondansetron 4 mg tablet,disintegrating 4 mg PO Q6H PRN (Reason: nausea and vomiting) Qty: 10 0RF famotidine 20 mg tablet 2 mg PO DAILY Patient Comments: TAKE 1 TABLET BY MOUTH TWICE A DAY lorazepam [Ativan] 0.5 mg tablet 0.5 mg PO PRN PRN (Reason: Anxiety) Patient Comments: TAKE 1 TABLET BY MOUTH TWICE DAILY NEEDED FOR UP TO 30 DAYS. hydroxyzine pamoate [Vistaril] 25 mg capsule 25 mg PO TID PRN (Reason: anxiety) Qty: 20 0RF ondansetron HCl 4 mg tablet 4 mg PO Q6H PRN (Reason: nausea and vomiting) Qty: 15 0RF lorazepam [Ativan] 1 mg tablet 1 mg PO TID PRN (Reason: anxiety) Qty: 10 0RF buspirone 7.5 mg tablet 7.5 mg PO BID 30 Days Qty: 60 0RF hydroxyzine pamoate [hydroxyzine pamoate] 25 mg capsule 25 mg PO TID PRN PRN (Reason: Anxiety) Qty: 30 0RF ondansetron 4 mg tablet,disintegrating 4 mg PO Q8H PRN PRN (Reason: Nausea) Qty: 10 0RF hydroxyzine HCl 25 mg tablet 25 mg PO TID PRN (Reason: anxiety) Qty: 20 0RF ondansetron 4 mg tablet,disintegrating 4 mg PO Q8H PRN PRN (Reason: Nausea) Qty: 20 0RF ondansetron 4 mg tablet,disintegrating 4 mg PO Q8H PRN PRN (Reason: Nausea) Qty: 10 0RF hydroxyzine pamoate [Vistaril] 25 mg capsule 25 mg PO TID PRN (Reason: anxiety) Qty: 10 0RF prednisone 20 mg tablet 20 mg PO DAILY Qty: 30 0RF Primary Care Provider: Wilfred Nova Referrals: Wilfred Nova DO [Primary Care Provider] - Activity Restrictions/Additional Instructions: Follow-up with your primary care physician outpatient setting. Return with worsening symptoms or any other concerns. Follow-up with the thermospray operator at your next scheduled appointment. Discontinue smoking marijuana. Print Language: Romansh Disposition Disposition: Home, Self Care
[2024-03-23 10:48] LABS: ALB/GLOB Ratio 1.2 RATIO (0.9-2.4); AST(SGOT) 18 U/L (15-37); Alanine Aminotransfer ALT/SGPT 14 U/L (13-56); Albumin, Serum 4.3 g/dL (3.2-5.0); Alkaline Phosphatase 84 U/L (45-117); Anion Gap 8 (5-15); BUN 12 mg/dL (7-18); BUN/Creat Ratio 14.2 RATIO (10-20); Calcium,Total 9.4 mg/dL (8.5-10.1); Chloride 108 mmol/L (98-107); Creatinine, Serum 0.84 mg/dL (0.55-1.02); EST Glomerular Filtration Rate 89 mL/min (>60); Est Glom Filt Rate - Afr Amer 108 mL/min (>60); Globulin 3.7 g/dL (2.2-4.2); Glucose 123 mg/dL (74-106); Lipase 28 U/L (13-75); Potassium 3.3 mmol/L (3.5-5.1); Sodium Level 138 mmol/L (136-145)
[2024-03-23 10:58] LABS: Color, Urine Yellow (Yellow); Glucose, Dipstick Normal (Normal); Ketone-Dipstick 5 mg/dl (Negative); Leukocyte Esterase-Dipstick Negative /ul (Negative); Nitrite-Dipstick Negative (Negative); Occult Blood-Urine Negative /ul (Negative); Protein-Dipstick 15 mg/dl (Negative); Urine Bilirubin Dipstick Negative (Negative); Urine Clarity Sl. Cloudy (Clear); Urine Urobilinogen Normal (Normal)
[2024-03-23 11:02] LABS: Internal QC Validated? YES +Cl - CLEAR BKGD; Pregnancy, Urine Negative Negative; Record Kit Lot#,Urine Preg HCG0000772476
[2024-03-23 11:54] VITALS: BP 100/58; PULSE 81; RESP 18; O2SAT 98
[2024-03-23] MEDS: Potassium Chloride Oral Tablet 20 MEQ 40 MEQ PO (12:20)
[2024-03-23] MEDS: Ketorolac 30 MG/ML Syringe IV (12:20)
[2024-03-23 13:04] VITALS: BP 122/69; PULSE 81; RESP 18; TEMP 36.4; O2SAT 98
== END 2024-03-23 13:26 | disposition home or self-care (01) ==
PROVIDERS: Emergency Provider Emergency Medicine; PCP Student in an Organized Health Care Education/Training Program; Visit Provider Emergency Medicine
DX: R11.15 Cyclical vomiting syndrome unrelated to migraine (principal); F32.2 Major depressive disorder, single episode, severe without psychotic features; R10.9 Unspecified abdominal pain; F41.1 Generalized anxiety disorder; F41.0 Panic disorder [episodic paroxysmal anxiety]; F17.290 Nicotine dependence, other tobacco product, uncomplicated; Z79.899 Other long term (current) drug therapy
CPT/HCPCS: 80053; 81002; 81025; 83690; 85025; 96361; 96374; 96375; 96376; 99284; J7030; A4216

== ENCOUNTER 2024-04-02 09:23 | Day surgery (SDC) | payer BC, SELFPAY ==
[2024-04-02] VITALS (8 sets, daily range): BP systolic 89–129; BP diastolic 54–78; PULSE 56–97; RESP 16–18; TEMP 36.4–36.8; O2SAT 98–100; BMI 20.7
--- NOTE | 2024-04-02 | COLBX_PTH ---
PATIENT: JORDYN CRAWFORD LOC: EN U#:[id number] AGE/SX: 23/F ROOM: RE04/02/[address]: Dr. Jason Adkins DO : 2000 BED: DIS: 04/02/2024 SPEC #: [id number] RECD: 04/02/24 13:33 STATUS: ALY SOBIA #: [id number] KEYON: 04/02/24 00:[address]: Jason Adkins DEPT: SURGICAL PATHOLOGY RECD BY: Yves Cramer ENTERED: 04/02/24 13:34 SP TYPE: COLON BX OTHR DR: Dr. Wilfred Nova DO Tissues: A - Ileum, NOS B - COLON BIOPSY C - Rectum, NOS Procedures: Surgery Specimen Level IV HEADER OPERATION: Colonoscopy with biopsies PRE-OP DIAGNOSIS: Abdominal pain of unknown etiology, cyclical vomiting TISSUE SUBMITTED: A- Terminal ileum, B- Random colon biopsy, C- Rectum biopsy MICROSCOPIC DIAGNOSIS A. Terminal ileum, biopsy: Fragments of small intestinal mucosa, no pathologic diagnosis. B. Colon, random biopsy: Fragments of colonic mucosa with focal minimal glandular distortion. See comment. C. Rectum, biopsy: Fragments of colonic mucosa with focal minimal glandular distortion. See comment. Fang 04/03/2024 COMMENT B, C. Cryptitis, crypt abscess or granulomas are not seen. Correlation with clinical, endoscopic findings and appropriate follow up are necessary. MICROSCOPIC DESCRIPTION Slides are reviewed. GROSS DESCRIPTION A. Received in fixative is one container labeled with the patient's name and designated Terminal ileum biopsy. The specimen consists of multiple irregular fragments of light barrera soft tissue that in aggregate measure 1.0 x 0.3 x 0.1 cm. The specimen is totally submitted in one cassette. B. Received in fixative is one container labeled with the patient's name and designated Random colon biopsy. The specimen consists of multiple irregular fragments of light barrera soft tissue that in aggregate measure 1.5 x 0.6 x 0.1 cm. The specimen is totally submitted in one cassette. C. Received in fixative is one container labeled with the patient's name and designated Rectum biopsy. The specimen consists of two irregular fragments of light barrera soft tissue that in aggregate measure 0.6 x 0.3 x 0.1 cm. The specimen is totally submitted in one cassette. 04/02/2024 TC:5 CPT:00334x6
--- NOTE | 2024-04-02 09:57 | PCM.PRE.AN2 ---
ASA Classification* ASA Classification ASA Classification: 2 Assessment & Plan Anesthesia* Anesthesia Assessment Anesthesia Assessment: Discussed sedation and/or anesthesia options, risks, benefits, and alternatives with patient/parents/legal guardian/POA. Questions invited. The patient/parents/legal guardian/POA seems to understand and agrees to proceed with anesthesia plan. Reviewed the physical assessment, medical history, allergy history and patient home medications list prior to surgery/procedure/anesthetic and documented any changes. Performed airway and anesthesia risk assessments. Anesthesia Type Anesthesia Type: MAC (see written pre-anesthesia record for full assessment) Anesthesia Focused Assessment* Airway Assessment Mouth opens: >3 cm Mallampati Score: II Focused Labs Anesthesia Preop lab: CBC WBC 15.8 K/mm3 (4.4-11.0) H 03/23/24 10:10 RBC 4.67 M/mm3 (4.2-5.4) 03/23/24 10:10 Hgb 14.2 g/dL (12.0-15.0) 03/23/24 10:10 Hct 41.5 % (37-47) 03/23/24 10:10 Plt Count 298 K/mm3 (150-450) 03/23/24 10:10 CHEMISTRY Potassium 3.3 mmol/L (3.5-5.1) L 03/23/24 10:10 Sodium 138 mmol/L (136-145) 03/23/24 10:10 BUN 12 mg/dL (7-18) 03/23/24 10:10 Creatinine 0.84 mg/dL (0.55-1.02) 03/23/24 10:10 Glucose 123 mg/dL (74-106) H 03/23/24 10:10 COAG HCG, Quant < 1 mIU/mL (1-3) 06/28/20 14:05 Urine Test Negative Negative 03/23/24 10:50 Pre-Assessment Diagnosis/Proposed Procedure Planned Operative Procedure(s): CSCOPE Anesthesia History Anesthesia History - senior medical transcriptionist: Anesthesia History - senior medical transcriptionist Hx Hospitalization No 03/31/24 11:56 Any Problems With Anesthesia No 03/31/24 11:56 Cholinesterase deficiency No 03/31/24 11:56 You/Your Family Experience No 03/31/24 11:56 fever (hyperthermia) with Relationship Recent Exposure to Contagious Disease Does patient have nerve No 03/31/24 11:56 stimulator Patient instructed to have device shut off --Does patient have Pacemaker or ICD? When Was Last Pacemaker Check QUESTION #4 FULL TEXT: You/Your Family Experience fever (hyperthermia) with Anesthesia Last Oral Intake Last Oral intake: Last Oral Intake NPO since Meds taken in AM with sips of water? Meds patient instructed to take am of surgery PONV PONV - senior medical transcriptionist: PONV - senior medical transcriptionist Female Yes 03/31/24 11:56 HX of Motion Sickness No 03/31/24 11:56 HX of N/V After Surgery No 03/31/24 11:56 Non-Smoker No 03/31/24 11:56 Duration of Surgery greater No 03/31/24 11:56 than 60 minutes Number of Risk Factors 1 03/31/24 11:56 PONV Score Low Risk 03/31/24 11:56 Height & Weight Height & Weight: Anesthesia: Height & Weight Height 5 ft 3 in 03/23/24 09:54 Respiratory Assessment Respiratory Assessment - senior medical transcriptionist: Respiratory Tract Infection Hx - senior medical transcriptionist Hx Respiratory Tract Infection No 03/31/24 11:56 STOP Sleep Apnea STOP Sleep Apnea - senior medical transcriptionist: STOP Sleep Apnea - senior medical transcriptionist Hx Hypertension No 03/31/24 11:56 Hx Sleep Apnea No 03/31/24 11:56 CPAP BIPAP Do you snore loudly (louder No 03/31/24 11:56 than talking or can be heard Do you often feel tired/ No 03/31/24 11:56 fatigued/ sleepy during daytime? Has anyone observed you stop No 03/31/24 11:56 breathing during sleep? STOP Results Negative 03/31/24 11:56 QUESTION #5 FULL TEXT : Do you snore loudly (louder than talking or can be heard through closed doors)? Tobacco Use History Tobacco Use History - senior medical transcriptionist: Tobacco Use History - senior medical transcriptionist Tobacco Use Vapor 01/10/21 14:09 Smoking Status Current every day smoker 03/31/24 11:56 Hx Tobacco Use Yes: VAPES 03/31/24 11:56 Years Smoking Packs Smoked per Day Smoking Cessation Date was within the last 15 years Hx Smoking Cessation Date Hx Smoking Cessation Counseling Hematologic Medial History Hematologic Hx - senior medical transcriptionist: Hematologic Medical Hx - director [employer] Hx of Blood Transfusion No 03/31/24 11:56 Hx of Transfusion in last 3 No 03/31/24 11:56 Months Date of Last Transfusion (if within last 3 months) Ever experience any problems No 03/31/24 11:56 with transfusion(s)? Specify any problems Hx of Preganancy in last 3 No 03/31/24 11:56 Months Nurse Filling Out Transfusion DSCHRIBER 03/31/24 11:56 & Questions: Date: 03/31/24 03/31/24 11:56 Time: 11:57 03/31/24 11:56 Patient unable to answer at this time (ie. confused, unrespo /Reproduction History /Reproductive History - senior medical transcriptionist: /Reproductive Hx- senior medical transcriptionist Hx Now No 03/31/24 11:56 Gestational Age (in weeks): EDC: Hx Hx Para Hx Section SAB No 03/31/24 11:56 Active Medications Active Medications: Current Medications Generic Name Dose Route Start Last Admin Trade Name Freq PRN Reason Stop Dose Admin Lactated Ringer's 1,000 mls @ 15 mls/hr 04/02/24 10:00 IV .Q48H KRISTY PFSH Medical History Wears glasses History of steroid therapy Vapes nicotine containing substance Marijuana use Panic disorder Major depressive disorder, single episode, severe without psychosis Generalized anxiety disorder Home Medications ?Medication ?Instructions ?Recorded ?Last Taken ?Type hydroxyzine pamoate 25 mg capsule 25 mg PO TID PRN anxiety #20 caps 05/22/22 Unknown Rx (Vistaril) ondansetron 4 mg disintegrating 4 mg PO Q8H PRN PRN Nausea #10 tabs 05/29/23 Unknown Rx tablet dicyclomine 20 mg tablet 20 mg PO TID PRN abdominal 03/13/24 Unknown Rx discomfort #30 tabs sertraline 50 mg tablet 50 mg PO QHS 03/31/24 Unknown History Allergy/AdvReac Type Severity Reaction Status Date / Time No Known Allergies Allergy Verified 03/31/24 11:53 Surgical History Hx of colonoscopy History of esophagogastroduodenoscopy (EGD) Social History Smoking Status: Current every day smoker tobacco type: e-cigarettes substance use type: marijuana Review of Systems (Anesthesia) ROS Narrative System reviewed and no additional complaints, except as documented.
[2024-04-02 10:26] LABS: Internal QC Validated? YES +Cl - CLEAR BKGD; Pregnancy, Urine Negative Negative
--- NOTE | 2024-04-02 10:33 | HP.PCM_ITS ---
History and Physical Date of Admission: 04/02/24 n/v, abdominal pain Details: JORDYN CRAWFORD, is a 23 F who presents to the office today establishing with [facility] She has long history of abdominal pain and cyclic vomiting. She been seen in the ED for these symptoms over 15 times since 2019. On interview with patient today she tells me she has had these symptoms consistently for the past 4 years. She wakes up every morning with abdominal pain and nausea. She vomits 2-3 times per month. Her appetite is ok. She feel like she gets full quickly and often feels nauseous after eating. She been told many times that her symptoms are related to anxiety so she did an IOP program in 2020. Her symptoms have continued since then. She does smoke marijuana 3x per day for anxiety. She is aware that this can lead to nausea and GI problems. She has stopped smoking in the past but her symptoms persisted so she started again. She was recently put on Sertraline for her anxiety but she has not seen any benefit yet. For her pain, she takes dicyclomine which works well for her. She has had both a colonoscopy and EGD in 2020 whcih showed no abnormalities. She denies fever, weight loss, melena, hematochezia or heartburn. Biochemical work up 02.28.24: WBC 7.8, RBC 4.43, Hgb 13.8, CT abdomen/pelvis w contrast 12.16.23 No evidence for small bowel obstruction or definitive evidence for acute appendicitis. Non specific thickening of the ware of the terminal ilium which may be consistent with ileitis. ROS Const Constitutional: No anorexia, fatigue, fever(s), weight change or sleep problems Eyes Eyes: No change in vision ENT ENT: No abnormal hearing, difficulty swallowing, mouth lesions, tongue swelling or throat swelling Resp Respiratory: No cough or shortness of breath Cardio Cardiology: No chest pain at rest, chest pain with exertion, shortness of breath or dyspnea on exertion Gastro GI: Positive for abdominal pain, constipation, diarrhea and nausea/dyspepsia; No difficulty swallowing Genitourinary-Female: No difficulty urinating or burning urination Musc Musculoskeletal: No joint pain, joint swelling, muscle weakness or decreased muscle mass Skin Skin: No hair loss in leg, yellowing of the eye, itchy eyes, rash, skin ulcer or skin swelling Neuro Neurology: No abnormal hearing, abnormal movements, confusion, unsteady gait/balance or memory loss Psych Psychiatric: No anxiety, No confusion and No memory loss Endo Endocrine: No fatigue or weight change Aller/Imm Allergy/Immunologic: No itchy eyes, throat swelling or tongue swelling Demian/Lymp Hematologic/Lymphatic: No easy bleeding, easy bruising or enlarged lymph nodes Exam Const General: cooperative and comfortable Nutritional Appearance: average body habitus and well nourished HENMT Head: normal to inspection Ears: hearing grossly normal bilaterally Nose: external nose normal Face and sinus: normal facial exam Mouth: oral mucosae normal Throat: posterior oropharynx normal Eyes General: appearance normal, both eyes and all related structures Neck Neck: normal visual inspection Chest Chest palpation & inspection: normal inspection of the chest and normal palpation of entire chest wall Resp Effort & Inspection: normal respiratory effort Auscultation: Bilateral: Clear to Auscultation Cardio Palpation: normal PMI Rate: regular rate Rhythm: regular rhythm GI Inspection: normal to inspection Auscultation: normal bowel sounds Percussion: normal to percussion Palpation: no hepatosplenomegaly Skin General: no rashes or lesions noted Neuro General: patient alert Extrem General: normal to inspection Psych Affect: normal affect Assessment and Plan Assessment and Plan (1) Abdominal pain of unknown etiology: Status: Acute Plan: Patient is here today to establish with [facility] for persistent n/v and abdominal pain since 2019. Differential diagnosis include hyperemesis syndrome, IBD or gastroparesis -She has never been worked up for IBD. CT from 10/12 showed bowel wall thickening in the terminal ileum. Will order IBD panel and colonoscopy to rule out inflammatory process -She will continue taking sertraline for her anxiety and dicyclomine for abdominal pain -Ordered gastric emptying studying -Encouraged patient to discontinuation of marijuana use and explained the effects it has on the GI tract (2) Cyclical vomiting: Status: Acute Orders: Orders Calprotectin, Stool Today R10.9 - Unspecified abdominal pain, R11.15 - Cyclical vomiting syndrome unrelated to migraine Stool Lactoferrin/WBC Today K58.9 - Irritable bowel syndrome without diarrhea Pancreatic Elastase, Fecal Today R10.9 - Unspecified abdominal pain, R11.15 - Cyclical vomiting syndrome unrelated to migraine CBC W/Diff, Automated Today R10.9 - Unspecified abdominal pain, R11.15 - Cyclical vomiting syndrome unrelated to migraine IBD Expanded Profile Today R10.9 - Unspecified abdominal pain, R11.15 - Cyc lical vomiting syndrome unrelated to migraine CRP Today R10.9 - Unspecified abdominal pain, R11.15 - Cyclical vomiting syndrome unrelated to migraine Erythrocyte Sed Rate Today R10.9 - Unspecified abdominal pain, R11.15 - Cyclical vomiting syndrome unrelated to migraine Gastric Emptying Study Today R11.15 - Cyclical vomiting syndrome unrelated to migraine Medications: Refilled dicyclomine 20 mg PO TID PRN 30 tabs 3RF abdominal discomfort I have examined the patient and the H&P has been reviewed. There are no clinical changes since date of exam.
--- NOTE | 2024-04-02 11:09 | PCM.POST.ANE ---
Anesthesia: Postop Eval I Current Vital Signs Temperature: 98.2 F Pulse Rate: 67 Blood Pressure: 99/56 Respiratory Rate: 18 Pulse Ox: 99 Oxygen Delivery Method: Room Air Assessment Airway patent: Yes Spontaneous unlabored respirations: Yes Mental status: Asleep nausea: No Vomiting: No Anesthesia Complication: No Fluid Hydration Crystalloid volume administer (ml): 600 Total IV fluid infused: 600 Progress Note Anesthesia document: Postop Eval 1 completed: Yes
--- NOTE | 2024-04-02 11:16 | OP.CCLET_ITS ---
04/02/2024 Wilfred Nova [address] [place] [address] Re : Colonoscopy procedure for Gloria Nettles Dear Dr. Nova This procedure was performed on March. My impressions and recommendations are as follows: Impressions : - Patchy mild inflammation was found in the rectum secondary to colitis. Biopsied. - Mild inflammation was found in the ileum secondary to ileitis. Biopsied. - The examination was otherwise normal on direct and retroflexion views. Recommendations : - Discharge patient to home. - Resume previous diet. - Continue present medications. - Await pathology results. - Repeat colonoscopy in 5 years for surveillance based on pathology results. My findings are described in the full procedure note, which is enclosed. If I can be of further assistance, please feel free to contact me at . Sincerely, Jason Adkins, 04/02/2024 11:15:29 AM This report has been signed electronically.
--- NOTE | 2024-04-02 11:16 | OP.COLON_ITS ---
Patient Name: Gloria Nettles Procedure Date: 04/02/2024 10:37 AM Date of : 2000 Age: 23 Procedure: Colonoscopy Indications: Clinically significant diarrhea of unexplained origin Providers: Jason Adkins DO Medicines: Monitored Anesthesia Care Patient Profile: This is a 23 year old female. Last Colonoscopy: none. The patient's first colonoscopy is today. Complications: No immediate complications. Procedure: Pre-Anesthesia Assessment: - Prior to the procedure, a History and Physical was performed, and patient medications and allergies were reviewed. The patient is competent. The risks and benefits of the procedure and the sedation options and risks were discussed with the patient. All questions were answered and informed consent was obtained. Patient identification and proposed procedure were verified by the physician in the pre-procedure area. Mental Status Examination: alert and oriented. Airway Examination: normal oropharyngeal airway and neck mobility. Respiratory Examination: clear to auscultation. CV Examination: normal. Prophylactic Antibiotics: The patient does not require prophylactic antibiotics. Prior Anticoagulants: The patient has taken no anticoagulant or antiplatelet agents except for NSAID medication. ASA Grade Assessment: II - A patient with mild systemic disease. After reviewing the risks and benefits, the patient was deemed in satisfactory condition to undergo the procedure. The anesthesia plan was to use monitored anesthesia care (MAC). Immediately prior to administration of medications, the patient was re-assessed for adequacy to receive sedatives. The heart rate, respiratory rate, oxygen saturations, blood pressure, adequacy of pulmonary ventilation, and response to care were monitored throughout the procedure. The physical status of the patient was re-assessed after the procedure. After I obtained informed consent, the scope was passed under direct vision. Throughout the procedure, the patient's blood pressure, pulse, and oxygen saturations were monitored continuously. The Colonoscope was introduced through the anus and advanced to the terminal ileum. The colonoscopy was performed without difficulty. The patient tolerated the procedure well. The quality of the bowel preparation was adequate. The terminal ileum was photographed. Scope In: 10:47:50 AM Scope Withdrawal Time 0 hours 9 minutes 49 seconds Scope Out: 11:01:26 AM Total Procedure Duration Time 0 hours 13 minutes 36 seconds Findings: The perianal and digital rectal examinations were normal. Patchy mild inflammation characterized by erythema was found in the rectum. Biopsies were taken with a cold forceps for histology. Verification of patient identification for the specimen was done. Estimated blood loss was minimal. Localized mild inflammation characterized by erythema and friability was found in the terminal ileum. Biopsies were taken with a cold forceps for histology. Verification of patient identification for the specimen was done. Estimated blood loss was minimal. The exam was otherwise without abnormality on direct and retroflexion views. Impression: - Patchy mild inflammation was found in the rectum secondary to colitis. Biopsied. - Mild inflammation was found in the ileum secondary to ileitis. Biopsied. - The examination was otherwise normal on direct and retroflexion views. Recommendation: - Discharge patient to home. - Resume previous diet. - Continue present medications. - Await pathology results. - Repeat colonoscopy in 5 years for surveillance based on pathology results. Procedure Code(s): --- Professional --- 54701, Colonoscopy, flexible; with biopsy, single or multiple CPT copyright 2021 [employer]. All rights reserved. The codes documented in this report are preliminary and upon vermin exterminator review may be revised to meet current compliance requirements. Jason Adkins DO 04/02/2024 11:15:29 AM This report has been signed electronically. Number of Addenda: 0 Note Initiated On: 04/02/2024 10:37 AM
--- NOTE | 2024-04-02 14:29 | PCM.POSTANE2 ---
Anesthesia Postop Eval I Sum Postop Eval Completion status Anesthesia document: Postop Eval 1 completed: Yes Anesthesia Postop Eval I Summary Anesthesia Postop Eval I Summary: Anesthesia Postop Eval I: Assessment Summary Airway patent Yes 04/02/24 11:10 [email or web address] Spontaneous unlabored Yes 04/02/24 11:10 [email or web address] respirations Mental status Asleep 04/02/24 11:10 [email or web address] nausea No 04/02/24 11:10 [email or web address] Vomiting No 04/02/24 11:10 [email or web address] Anesthesia Postop Eval I: Fluid Summary Crystalloid volume administer 600 04/02/24 11:10 [email or web address] (ml) Colloids volume administered ( ml) Blood Product volume administered (ml) Total IV fluid infused 600 04/02/24 11:10 [email or web address] Anesthesia Postop Eval I: Summary Notes Anesthesia Complication No 04/02/24 11:10 [email or web address] Anesthesia Complication Comment: Post-operative progress note Anesthesia: Postop Eval II Evaluation Mental status: Awake and Calm Pain Level: 0 nausea: No Vomiting: No Complications Anesthesia Complication: No
== END 2024-04-02 12:05 | disposition home or self-care (01) ==
LOC: EN 09:24 → AC 09:25
PROVIDERS: Anesthesiology; PCP Student in an Organized Health Care Education/Training Program; Referring Provider Student in an Organized Health Care Education/Training Program; Visit Provider Internal Medicine Gastroenterology
PROC: 0DJD8ZZ Inspection of Lower Intestinal Tract, Via Natural or Artificial Opening Endoscopic (ICD-10-PCS; CPT 45378; principal; 2024-04-02 10:25)
DX: K52.9 Noninfective gastroenteritis and colitis, unspecified (principal); F32.2 Major depressive disorder, single episode, severe without psychotic features; F17.290 Nicotine dependence, other tobacco product, uncomplicated; Z79.899 Other long term (current) drug therapy
CPT/HCPCS: 45380; 81025; 88305; J7120; J2405

== ENCOUNTER → 2024-06-01 | Outpatient (CLI) | payer BC, SELFPAY ==
--- NOTE | 2024-06-01 12:46 | NM_ITS ---
CLINICAL: 23-year-old female with history of chronic nausea. SEMI-SOLID PHASE 99m Tc SULFUR COLLOID GASTRIC EMPTYING STUDY COMPARISON: None available FINDINGS: The patient was administered 1.1 mCi of 99m Tc sulfur colloid mixed with oatmeal and consumed per os. Image acquisitions in the anterior-posterior projections were obtained for 60 minutes. There is prompt visualization of the stomach. There is no gastroesophageal reflux identified. First order kinetics are maintained throughout the duration of the acquisitions. The T ? linear fit was calculated to be 57.44 minutes, (Normal: 12-56 minutes). NM/Gastric Emptying Study IMPRESSION: 1. ABNORMAL 99m Tc sulfur colloid semi-solid phase (oatmeal) gastric emptying imaging examination. A. There is mild delayed semi-solid phase gastric emptying compared to normal controls with maintained first order kinetics throughout all components of the examination. (Mukund et al, J Nucl Med Tech 38: 186, 2010). Electronically Signed: Stanton Elaine DO at 9:26 EDT ,
== END | disposition home or self-care (01) ==
LOC: NM 12:44
PROVIDERS: PCP Student in an Organized Health Care Education/Training Program; Referring Provider Student in an Organized Health Care Education/Training Program; Visit Provider Student in an Organized Health Care Education/Training Program
DX: R11.15 Cyclical vomiting syndrome unrelated to migraine (principal)
CPT/HCPCS: 78264; A9541

== ENCOUNTER 2024-06-11 08:43 | Emergency (ER) | payer BC, SELFPAY ==
[2024-06-11 08:43] VITALS: BP 124/65; PULSE 131; RESP 20; O2SAT 99
[2024-06-11 08:44] VITALS: BP 130/99; PULSE 123; RESP 20; TEMP 36.6; O2SAT 100; BMI 21.2
[2024-06-11] MEDS: 0.9% Normal Saline (1000mL) 1,000 ML 999 ML IV (09:55)
[2024-06-11] MEDS: Ondansetron 4 MG/2 ML Vial IV (09:55)
[2024-06-11] MEDS: LORazepam 2 MG/ML Syringe 1 MG IV (09:56)
[2024-06-11] MEDS: Famotidine 200 MG/20 ML MDV 20 MG in 0.9% Normal Saline (Pres. free 8 ML 300 MG IV (09:57)
[2024-06-11 10:17] LABS: Internal QC Validated? YES +Cl - CLEAR BKGD; Pregnancy, Serum, hCG Quali. NEGATIVE Negative
[2024-06-11 10:43] VITALS: BP 129/78; PULSE 126; RESP 22; O2SAT 100
--- OUTSIDE RECORDS SUMMARY | 2024-06-11 11:36 | XMS RPT_ITS | CCD ---
Author Organization [facility] Inform ion Partnership [facility] Care Team Providers Care Bank Reconciliator Name Role Phone Wilfred Egan DO Primary Care Provider Unavailable Primary Care Provider UnavailSAVAGE Ibanez Attending Unavailable Wilfred Egan DO Primary Care Provider CHASITY PARIKH Attending Unavailable WILFRED EGAN Primary Care Unavailable WILFRED EGAN Primary Care Unavailable RIK TORRES Attending Unava ilable WILFRED EGAN Primary Care Unavailable CHASITY PARIKH Attending Unavailable Wilfred Egan DO Primary Care Provider WILFRED EGAN Primary Care Unavailable SHONNA JAIME Attending Unavailable Medications Current Medications Medication Drug Class(es) Dates Sig (Normalized) Sig (Original) dicyclomine hydrochloride 20 mg oral tablet (1 source) Anticholinergic Start: 02-28-2024 take 1 tablet by mouth three times daily as needed dicyclomine (BENTYL) 20 mg tablet TAKE 1 TABLET BY MOUTH THREE TIMES A DAY NEEDED FOR ABDOMINAL DISCOMFORT 0 02/28/2024 Active DULoxetine 20 mg delayed release oral capsule (4 sources) Serotonin and Norepinephrine Reuptake Inhibitor Start: 01-17-2022 End: 10-22-2022 take 1 capsule by mouth once daily DULoxetine (CYMBALTA) 20 mg capsule Take 1 capsule by mouth once daily. 30 capsule 1 01/17/2022 10/22/2022 Discontinued Comment on above: Take 1 capsule by [facility] once daily. hydrOXYzine pamoate 25 mg oral capsule (1 source) Antihistamine Start: 02-28-2024 take 1 capsule by mouth every eight hours as needed hydrOXYzine pamoate (VISTARIL) 25 mg capsule Take 25 mg by mouth three times a day as needed. 0 02/28/2024 Active ondansetron 4 mg disintegrating oral tablet (6 sources) Serotonin-3 Receptor Antagonist Start: 10-10-2020 End: 01-17-2022 take 1 tablet by mouth every eight hours as needed ondansetron orally disintegrating (ZOFRAN ODT) 4 mg disintegrating tablet Take 1 tablet by mouth every 8 hours as needed. 20 tablet 3 01/17/2022 Active Comment on above: Take 1 tablet by michael th every 8 hours as needed. sertraline 50 mg oral tablet (2 sources) Serotonin Reuptake Inhibitor Start: 03-04-2024 End: 04-17-2024 take 0.5 tablet by mouth once daily, then take 1 tablet by mouth once daily sertraline (ZOLOFT) 50 mg tablet Indications: Anxiety , Abdominal cramping , Nausea and vomiting, unspecified vomiting type Take 0.5 tablets by mouth once daily for 14 days, THEN 1 tablet once daily. 37 tablet 0 03/04/2024 04/17/2024 Active Start: 09-20-2020 End: 01-17-2022 take 1 tablet by mouth once daily sertraline (ZOLOFT) 50 mg tablet Take 1 tablet by mouth daily. 90 tablet 1 09/20/2020 01/17/2022 Discontinued Comment on above: Take 1 tablet by michael daily. Completed/Discontinued Medications Medication Drug Class(es) Dates Sig (Normalized) Sig (Original) famotidine 20 mg oral tablet (6 sources) Histamine-2 Receptor Antagonist Start: 11-04-2020 End: 03-04-2024 take 1 tablet by mouth twice daily famotidine (PEPCID) 20 mg tablet Indications: Chronic superficial gastritis without bleeding Take 1 tablet by mouth twice daily. 180 tablet 1 01/17/2022 03/04/2024 Discontinued Comment on above: Take 1 tablet by michael th twice daily. hyoscyamine sulfate 0.125 mg sublingual tablet (6 sources) Start: 07-04-2020 End: 03-04-2024 take 1 tablet under the tongue once daily as needed hyoscyamine sublingual (LEVSIN SL) 0.125 mg Indications: Lower abdominal pain Take 1-2 tablets under tongue every 4hrs as needed. Max 12 tabs per day. 60 tablet 3 01/17/2022 03/04/2024 Discontinued Comment on above: Take 1-2 tablets und er tongue every 4hrs as needed. Max 12 tabs per day. LORazepam 1 mg oral tablet (5 sources) Benzodiazepine Start: 05-20-2022 End: 05-20-2022 LORazepam (ATIVAN) tablet 2 mg Start: 01-17-2022 End: 02-16-2022 take 1 tablet by mouth twice daily as needed LORazepam (ATIVAN) 0.5 mg Indications: Chronic superficial gastritis without bleeding , Lower abdominal pain , Major depressive disorder, remission status unspecified, unspecified whether recurrent , Anxiety Take 1 tablet by mouth twice daily as needed for up to 30 days. 30 tablet 1 01/17/2022 02/16/2022 Active End: 01-17-2022 take 0.5 mg by mouth every six hours as needed LORazepam (ATIVAN) 0.5 mg Take 0.5 mg by mouth every 6 hours as needed. 0 01/17/2022 Discontinued Comment on above: Take 0.5 mg by mouth every 6 hours as needed. Take 1 tablet by michael th twice daily as needed for up to 30 days. prochlorperazine 5 mg oral tablet (1 source) Phenothiazine Start: 2 End: 2 prochlorperazine (COMPAZINE) tablet 5 mg Start: 05-20-2022 End: 05-20-2022 prochlorperazine (COMPAZINE) tablet 5 mg Problems Active Problems Problem Classification Problem Date Documented Da te Episodic/Chronic Abdominal pain (4 sources) Lower abdominal pain; Translations: [Lower abdominal pain, unspecified] Onset: 12-26-2022 Episodic Anxiety disorders (12 sources) Anxiety; Translations: [Anxiety disorder, unspecified] Onset: 05-20-2022 Chronic Gastritis and duodenitis (1 source) Chronic superficial gastritis; Translations: [Chronic superficial gastritis without bleeding] Chronic Mood disorders (1 source) Major depressive disorder; Translations: [Major depressive disorder, single episode, unspecified] Chronic Nausea and vomiting (5 sources) Nausea with vomiting, unspecified; Translations: [Vomiting, unspecified] Onset: 12-28-2022 Episodic Residual codes; unclassified (1 source) Did not attend; Translations: [Procedure and treatment not carried out because of patient's decision for other reasons] Episodic Substance-related disorders (2 sources) Cannabis use, unspecified, uncomplicated; Translations: [Cannabis use, unspecified, uncomplicated] Onset: 05-15-2023 Episodic Thyroid disorders (3 sources) Goiter; 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-2022 Chronic Past or Other Problems Problem Classification Problem Date Documented Da te Episodic/Chronic Fluid and electrolyte disorders (2 sources) Hypokalemia; Translations: [Hypokalemia] Onset: 12-28-2022 Episodic Results Test Name Value Interpretation Reference Range Facil ity CNOVon 03-04-2024 CNOV Office Visit (FAMPWS ) THOGLORIA Hillman ([id number]) 2 F Date Time Provider Department 03/04/24 9:00 AM SHONNA JAIME During your visit today, we recorded the following information about you: Pulse Respiration Blood pressure Weight 81/minute 16/minute 108/62 54.2 kg Shonna Jaime APRN.SENIOR WINDOWS ENGINEER 03/04/2024 6:30 PM Signed Chief Complaint Patient presents with: ER F/U: Abd pain, seeing gastro next month, anxiety HPI Gloria Hillman Tho is a 23 year old female who presents here today for Above Complaints.. [facility] ER on 02/27 with abdominal pain and anxiety. Is seeing LÓPEZ Renner at [facility]. Stress/anxiety-work has been frustrating lately. Has been a bit stressed about money, but this isn't anything abnormal for her. Abdominal pain and anxiety will come and go, has gone an entire month without sx. Since last Saturday started with abdominal pain and cramping waking her up at nighttime. Worst sx are in the morning. Most of the time has diarrhea when she is not feeling well. Very occasionally will have constipation. Takes dicyclomine prn, if takes will be 1-2 times in a day-this helps somewhat and this lasts a few hours. Wtavcs-qoa-vbzhm't like to take this a lot because reminds her of previous times being sick. But if really feeling bad with nausea or vomiting, will take this and is helpful. Vistaril-takes prn for her anxiety and this is helpful. Had been off of this for a while, but since last Saturday seems to have needed it more frequently. Has been doing breathing techniques, etc to get her through her increased anxiety episodes. Previously prescribed Remeron and felt terrible and crying in the morning. Past medical history, appointments, medications, allergies reviewed. Previous Medical History PAST MEDICAL HISTORY Diagnosis Date Intractable vomiting with nausea, unspecified vomiting type Marijuana user Noncompliance with treatment plan 11/24/2020 placed on care plan by [facility] ED for excessive visits Previous Surgical History PAST SURGICAL HISTORY Procedure Laterality Date COLONOSCOPY - DIAGNOSTIC 10/20/2020 EGD 10/20/2020 NONE Family History FAMILY HISTORY Problem Relation Age of Onset Thyroid Mother COPD Father Heart Maternal Grandmother Thyroid Maternal Grandmother Patient Allergies ALLERGIES No Known Allergies Current Medications Current Outpatient Medications on File Prior to Visit Medication Sig dicyclomine (BENTYL) 20 mg tablet TAKE 1 TABLET BY MOUTH THREE TIMES A DAY NEEDED FOR ABDOMINAL DISCOMFORT hydrOXYzine pamoate (VISTARIL) 25 mg capsule Take 25 mg by mouth three times a day as needed. ondansetron orally disintegrating (ZOFRAN ODT) 4 mg disintegrating tablet Take 1 tablet by mouth every 8 hours as needed. famotidine (PEPCID) 20 mg tablet Take 1 tablet by mouth twice daily. (Patient not taking: Reported on 03/04/2024) hyoscyamine sublingual (LEVSIN SL) 0.125 mg Take 1-2 tablets under tongue every 4hrs as needed. Max 12 tabs per day. (Patient not taking: Reported on 03/04/2024) No current facility-administered medications on file prior to visit. Social History Social History Tobacco Use Smoking status: Never Smokeless tobacco: Never Substance Use Topics Alcohol use: No Drug use: Not Currently Types: Marijuana Review of Symptoms REVIEW OF SYSTEMS See HPI, otherwise negative EXAM: BP 108/62 (BP Site: Left Arm, BP Position: Sitting, BP Cuff Size: Regular Adult) Pulse 81 Resp 16 Wt 54.2 kg (119 lb 6.4 oz) LMP 10/01/2022 (Exact Date) SpO2 99% BMI 20.49 kg/m? General Appearance: Well appearing, alert, in no acute distress, well-hydrated, well nourished.. Lungs: Lungs clear to auscultation. No wheezing, rhonchi, rales.. Heart: RRR without murmur, gallop, or rubs. No ectopy. Psychiatric: pleasant, cooperative. Health Maintenance List HPV Vaccine(1 - 3-dose series) Never done Meningococcal B Vaccine: Consider Based On Risk(1 of 2 - Patient Seeks Protection) Never done GC (Gonorrhea) Screening (-) Never done Hepatitis C Screening Never done HIV Screening Never done Chlamydia Screening (-) Never done Cervical Cancer Screening Never done Covid-19 Vaccine( - 2022- season) Never done Behavioral Health Screening Never done DTaP,Tdap,Td Vaccine(7 - Td or Tdap) due on 03/30/2024 Influenza Vaccine(1) due on 04/19/2024 Hepatitis B Vaccine Completed Data reviewed Previous records, office notes ASSESSMENT/PLAN: 1. Anxiety - ICD9: 300.00, ICD10: F41.9 (primary diagnosis) Continue with plan to see Dr. Adkins with [facility]. - SERTRALINE 50 MG TABLET - CONSULT TO PSYCHIATRY 2. Abdominal cramping - ICD9: 789.00, ICD10: R10.9 Continue with plan to see Dr. Adkins with [facility]. - SERTRALINE 50 MG TABLET - CONSULT TO PSYCHIATRY 3. Nausea and vomiting, unspecified vomiting type (more content not included)... Normal [facility] COVID-19, MOLECULARon 2022 SARS-CoV-2 (COVID-19) Ab IA Ql Not detected Normal Not Detected [facility] Comment on above: Result Comment: This test was performed under the FDA's Emergency Use Authorization (EUA). Testing was performed using the [employer] ID NOW COVID-19 assay on the ID NOW platform. This test has not been approved for use in asymptomatic patients and its performance in this patient population has not been evaluated. Negative results do not rule out the presence of SARS-CoV-2/COVID-19. Fact sheets for the EUA can be found at the following links: For Healthcare Providers: https://www.[employer].gov/media/052668/download For Patients: https://www.[employer].gov/media/776655/download CT ABDOMEN PELVIS WITH IV CO NTRAST ONLYon 12-26-2022 CT ABDOMEN PELVIS WITH IV CONTRAST ONLY EXAMINATION: CT ABDOMEN PELVIS WITH IV CONTRAST ONLY HISTORY: abdominal pain. ORDERING SYSTEM PROVIDED HISTORY: abdominal pain, TECHNOLOGIST PROVIDED HISTORY: Illness/Other Reason for exam: abd pain and vomiting Encounter Type: Initial Additional signs and symptoms: none ORDERING SYSTEM PROVIDED DIAGNOSIS CODES: R11.2 Nausea and vomiting, unspecified vomiting type F41.9 Anxiety COMPARISON: None. TECHNIQUE: Multiple axial CT images of the abdomen and pelvis were performed following IV administration 75 mL of Isovue-370. 2D coronal and sagittal reformations were submitted for review. Dose reduction techniques were achieved by using automated exposure control and/or adjustment of mA and/or kV according to patient size and/or use of iterative reconstruction technique. FINDINGS: LUNG BASES: Lung bases appear clear. No pleural effusion is seen. AORTA: No aortic aneurysm is identified. LYMPH NODES: No retroperitoneal, mesenteric or pelvic lymphadenopathy. LIVER: Liver contour appears smooth. No focal liver parenchymal mass identified. BILIARY TREE AND GALLBLADDER: No intrahepatic or extrahepatic bile duct dilatation. Gallbladder is fluid distended without calcified gallstones. PANCREAS: Normal in size without masses or ductal dilatation. No peripancreatic inflammatory changes. SPLEEN: Normal in size without focal lesions. ADRENAL GLANDS: Normal bilaterally, without nodules. KIDNEYS/URINARY BLADDER: Kidneys enhance in a symmetric fashion. There is a focal area of scar at the upper pole of the left kidney. No KUB stones or hydronephrosis identified. Urinary bladder is contracted. GASTROINTESTINAL TRACT: Scattered fluid throughout nondilated small bowel. Stomach and duodenum appear unremarkable. Appendix appears normal. PERITONEAL CAVITY AND SURFACES: Minimal pelvic free fluid is seen. No free intraperitoneal air. REPRODUCTIVE ORGANS: Uterus and left adnexa appear unremarkable. Partially collapsed cyst in the right ovary measures 1.9 x 1.4 cm. ABDOMINAL WALL: No abdominal hernias are seen. OSSEOUS STRUCTURES: No aggressive-appearing osseous lesions. No compression fracture is identified. IMPRESSION: 1. Scattered fluid throughout nondilated small bowel may correlate with enteritis or mild ileus. No bowel obstruction. 2. Normal CT appearance of the appendix. 3. Right ovarian cyst that measures 1.9 cm is partially collapsed. Minimal pelvic free fluid may be related to cyst rupture. 4. Small scar at the upper pole of the left kidney. MPH/mkv Workstation ID: [id number] Dictated by: TREVIN BATES on SatDecember 26, 2022 11:15:43 PM EDT Transcribed by: ORACIO GODWIN on SatDecember 26, 2022 11:20:10 PM EDT Finalized by: TREVIN BATES on SatDecember 26, 2022 11:21:[address] [facility] Comment on above: Order Comment: Injur y/Trauma or Illness?:Illness/Other How long have you had these symptoms (acute/chronic)?:Acute Reason for exam?:abd pain and vomiting Type of Exam?:Initial Additional signs and symptoms?:none HCG Preg Ur Qlon 10-20-2020 HCG ( test) Ql (U) Negative Normal Negative [facility] Comment on above: Order Comment: Speci men Type: URINE SPECIMEN Result Comment: This test is intended to aid in the early detection of . Very dilute urine samples, as indicated by a low specific gravity, may not contain membership sales representative levels of hCG. This test detects intact hCG only. This test does not reliably detect hCG degradation products, including free-beta subunit and beta-core fragment. Therefore, this test may show reduced reactivity in urine after 8 weeks gestation. A number of conditions other than , including trophoblastic disease and certain non-trophoblastic neoplasms cause elevated levels of hCG. As with any assay employing mouse antibodies, the possibility exists for interference by human anti-mouse antibodies (HAMA) in the specimen. The test provides a presumptive diagnosis for . Performed By: #### 2 [id number] #### [facility] CLIA [id number] [address] [place] [address] [place] [address] [facility] SURGICAL PATHOLOGYon CASE REPORT Normal [facility] Comment on above: Order Comment: Speci men Type: TISSUE SPECIMEN Result Comment: Surg ica Pathology Report Case: [id number] Authorizing Provider: Maryjane Levy Collected: 10/20/2020 01:09 PM Ordering Location: SURGERY Received: 10/21/2020 06:46 AM Pathologist: Yves Sandoval MD Specimens: A) - DUODENUM BIOPSY, Second Portion Duodenun B) - ANTRUM C) - ESOPHAGUS BIOPSY, Mid Esophagus D) - COLON BIOPSY, Random Mucosal Biopsies Performed By: #### S #### [facility] CLIA [id number] [address] [place] [address] FINAL DIAGNOSIS Normal [facility] Comment on above: Order Comment: Speci men Type: TISSUE SPECIMEN Result Comment: A) D uodenum, second portion, biopsy - Superficial small bowel fragments with no significant histopathologic change. B) Stomach, antrum, biopsy - Mild chronic gastritis. C) Esophagus, mid, biopsy - Squamous mucosa with no significant histopathologic change. D) Colon, random biopsies - Colonic mucosa with no significant histopathologic change. Performed By: #### S #### [facility] CLIA [id number] [address] [place] [address] FINAL PERFORMING LAB Normal [facility] Comment on above: Order Comment: Speci men Type: TISSUE SPECIMEN Result Comment: Diag nostic interpretation performed at [facility], [address] [place] [address] CLIA# [id number] Brand Executive: Zafar Jacome M.D. Performed By: #### S #### [facility] CLIA [id number] [address] [place] [address] GROSS DESCRIPTION Normal [facility] Comment on above: Order Comment: Speci men Type: TISSUE SPECIMEN Result Comment: A. D UODENUM BIOPSY. Received in formalin labeled second portion duodenum are two barrera soft tissue fragments aggregating to 0.4 x 0.2 x 0.2 cm. Totally submitted in 1 cassette. B. ANTRUM. Received in formalin labeled antrum are two barrera soft tissue fragments aggregating to 0.4 x 0.2 x 0.2 cm. Totally submitted in 1 cassette. C. ESOPHAGUS BIOPSY. Received in formalin labeled mid esophagus is one barrera soft tissue fragment measuring 0.3 x 0.2 x 0.1 cm. Totally submitted in 1 cassette. D. COLON BIOPSY. Received in formalin labeled random mucosal biopsies are multiple barrera-pale pink soft tissue fragments aggregating to 2.1 x 0.2 x 0.1 cm. Totally submitted in 1 cassette. RSA/pkp Gross examination performed at [facility], [address] [place] [address] CLIA# [id number] Performed By: #### S #### [facility] CLIA [id number] [address] [place] [id number] Vital Signs Date Time Vital Sign Value Performing Clinician Facility 03-04-2024 09:10-0400 Body mass index (BMI) [Ratio] 20.49 kg/m2 Shonna Addison ECONOMIC MANAGER.SENIOR WINDOWS ENGINEER Work Phone: [facility] 03-04-2024 09:10-0400 Body weight 54.16 kg Shonna Addison ECONOMIC MANAGER.SENIOR WINDOWS ENGINEER Work Phone: [facility] 03-04-2024 09:10-0400 Diastolic blood pressure 62 mm[Hg] Shonna Addison ECONOMIC MANAGER.SENIOR WINDOWS ENGINEER Work Phone: [facility] 03-04-2024 09:10-0400 Heart rate 81 /min Shonna Addison ECONOMIC MANAGER.SENIOR WINDOWS ENGINEER Work Phone: [facility] 03-04-2024 09:10-0400 Respiratory rate 16 /min Shonna Addison ECONOMIC MANAGER.SENIOR WINDOWS ENGINEER Work Phone: [facility] 03-04-2024 09:10-0400 SaO2% (BldA) [Mass fraction] 99 % Shonna Addison ECONOMIC MANAGER.SENIOR WINDOWS ENGINEER Work Phone: [facility] 03-04-2024 09:10-0400 Systolic blood pressure 108 mm[Hg] Shonna Addison ECONOMIC MANAGER.SENIOR WINDOWS ENGINEER Work Phone: [facility] 10-19-2022 15:14-0500 Body temperature 97.81 [degF] Wilfred Egan DO Work Phone: [facility] 10-19-2022 15:14-0500 Body weight 55.79 kg Wilfred Egan DO Work Phone: [facility] 10-19-2022 15:14-0500 Diastolic blood pressure 60 mm[Hg] Wilfred Egan DO Work Phone: [facility] 10-19-2022 15:14-0500 Heart rate 96 /min Wilfred Egan DO Work Phone: [facility] 10-19-2022 15:14-0500 Respiratory rate 16 /min Wilfred Egan DO Work Phone: [facility] 10-19-2022 15:14-0500 Systolic blood pressure 120 mm[Hg] Wilfred Egan DO Work Phone: [facility] 05-20-2022 03:36-0400 Body height 160 cm Savage Scott MD Work Phone: [facility] 05-20-2022 03:36-0400 Body mass index (BMI) [Ratio] 23.03 kg/m2 Savage Scott MD Work Phone: [facility] 05-20-2022 03:36-0400 Body weight 58.97 kg Savage Scott MD Work Phone: [facility] 05-20-2022 03:35-0400 Body temperature 98.1 [degF] Savage Scott MD Work Phone: [facility] 05-20-2022 03:35-0400 Diastolic blood pressure 60 mm[Hg] Savage Scott MD Work Phone: [facility] 05-20-2022 03:35-0400 Heart rate 105 /min Savage Scott MD Work Phone: [facility] 05-20-2022 03:35-0400 Respiratory rate 20 /min Savage Scott MD Work Phone: [facility] 05-20-2022 03:35-0400 SaO2% (BldA) [Mass fraction] 99 % Savage Scott MD Work Phone: [facility] 05-20-2022 03:35-0400 Systolic blood pressure 127 mm[Hg] Savage Scott MD Work Phone: [facility] 01-17-2022 08:29-0400 Body weight 61.24 kg Shonna Addison ECONOMIC MANAGER.SENIOR WINDOWS ENGINEER Work Phone: [facility] 01-17-2022 08:29-0400 Diastolic blood pressure 74 mm[Hg] Shonna Addison ECONOMIC MANAGER.SENIOR WINDOWS ENGINEER Work Phone: [facility] 01-17-2022 08:29-0400 Heart rate 74 /min Shonna Addison ECONOMIC MANAGER.SENIOR WINDOWS ENGINEER Work Phone: [facility] 01-17-2022 08:29-0400 Respiratory rate 16 /min Shonna Addison ECONOMIC MANAGER.SENIOR WINDOWS ENGINEER Work Phone: [facility] 01-17-2022 08:29-0400 SaO2% (BldA) [Mass fraction] 97 % Shonna Addison ECONOMIC MANAGER.SENIOR WINDOWS ENGINEER Work Phone: [facility] 01-17-2022 08:29-0400 Systolic blood pressure 104 mm[Hg] Shonna Addison ECONOMIC MANAGER.SENIOR WINDOWS ENGINEER Work Phone: [facility] Encounters Encounter Date Encounter Type Care Provider Facility Start: 03-04-2024 End: 03-04-2024 ambulatory WILFRED EGAN Facility:[facility] Start: 03-04-2024 End: 03-04-2024 Office outpatient visit 25 minutes Shonna Jaime ECONOMIC MANAGER.SENIOR WINDOWS ENGINEER Work Phone: [facility] Comment on above: Anxiety (Primary Dx) ; Abdominal cramping; Nausea and vomiting, unspecified vomiting type Start: 05-15-2023 End: 05-15-2023 Emergency department patient visit CHASITY PARIKH [facility] Start: 12-28-2022 End: 12-28-2022 Emergency department patient visit WILFRED EGAN [facility] Start: 12-26-2022 End: 12-27-2022 Emergency department patient visit WILFRED EGAN [facility] Start: 10-22-2022 Patient encounter status Marco Antonio Egan DO Work Phone: [facility] Work Phone: Start: 10-19-2022 End: 10-19-2022 Patient encounter procedure Wilfred Egan DO Work Phone: [facility] [place] Comment on above: Well adult exam (Beatris andreas Dx); Anxiety; Thyromegaly Start: 10-19-2022 End: 10-19-2022 Patient encounter status Wilfred Egan DO Work Phone: [facility] Start: 05-20-2022 End: 05-20-2022 Emergency department patient visit SAVAGE SCOTT Facility:[facility] Start: 05-20-2022 End: 05-20-2022 Emergency department patient visit Savage Scott MD Work Phone: [facility] Start: 02-01-2022 End: 02-01-2022 Patient encounter procedure Bowen Leroy CMO & PRESIDENT Work Phone: Psychology Comment on above: No-show for appointm ent (Primary Dx) Start: 01-17-2022 Telephone encounter Bowen augustin CMO & PRESIDENT Work Phone: Psychology Comment on above: Consult (Initial [facility] W Pt Outreach) Start: 01-17-2022 End: 01-17-2022 Patient encounter procedure Shonna Jaime APRN.CNP Work Phone: [facility] [place] Comment on above: Major depressive dis order, remission status unspecified, unspecified whether recurrent (Primary Dx); Anxiety; Chronic superficial gastritis without bleeding; Lower abdominal pain Plan of Treatment Date Care Activity Detail Author Start: 06-24-2024 End: 06-24-2024 Patient encounter procedure 06/24/2024 2:20 PM EST Office Visit [facility] [place] [address] [facility] [place] [id number] Wilfred Egan DO [address] [facility] [place] [id number] Physical [facility] [place] Comment on above: Physical Start: 04-23-2024 End: 04-23-2024 ambulatory 04/23/2024 10:00 AM EDT [facility] [address] [place] [address] Nichol Dowell, ECONOMIC MANAGER.SENIOR WINDOWS ENGINEER [address] [place] [address] Anxiety [F41.9] Psychiatry Comment on above: Anxiety [F41.9] Start: 04-19-2024 Influenza vaccination Influenza Vacc ine (#1) [facility] Start: 03-30-2024 Urine microalbumin profile [facility] Start: 10-20-2023 COVID-19 VACCINE (#1) COVID-19 VACCI NE (#1) [facility] Comment on above: Postponed from 12/24 (Declined at this time) Start: 08-19-2023 Behavioral Health Screening Behavioral Health Screening [facility] Start: 04-19-2023 Covid-19 Vaccine ( season) Covid-19 Vaccine ( season) [facility] Start: 02-15-2023 Influenza vaccination INFLUENZA (#1) [facility] Comment on above: Postponed from 04/19 (Declined at this time) Start: 10-19-2022 End: 12-19-2022 CBC W Auto Differential panel - Blood CBC + DIFF Lab Routine Anxiety Thyromegaly Expected: 10/19/2022, Expires: 12/19/2022 [facility] Work Phone: Comment on above: Expected: 10/19/2022 , Expires: 12/19/2022 Start: 10-19-2022 End: 12-19-2022 Comprehensive metabolic 2000 panel - Serum or Plasma COMP METABOLIC PANEL Lab Routine Anxiety Thyromegaly Expected: 10/19/2022, Expires: 12/19/2022 [facility] Work Phone: Comment on above: Expected: 10/19/2022 , Expires: 12/19/2022 Start: 10-19-2022 End: 12-19-2022 THYROID PEROXIDASE ANTIBODY BLOOD THYROID PEROXIDASE ANTIBODY BLOOD Lab Routine Anxiety Thyromegaly Expected: 10/19/2022, Expires: 12/19/2022 [facility] Work Phone: Comment on above: Expected: 10/19/2022 , Expires: 12/19/2022 Start: 10-19-2022 End: 12-19-2022 Thyrotropin [Units/volume] in Serum or Plasma TSH BLD Lab Routine Anxiety Thyromegaly Expected: 10/19/2022, Expires: 12/19/2022 [facility] Work Phone: Comment on above: Expected: 10/19/2022 , Expires: 12/19/2022 Start: 10-19-2022 End: 12-19-2022 Thyroxine (T4) free [Mass/volume] in Serum or Plasma T4 FREE/FREE THYROX Lab Routine Anxiety Thyromegaly Expected: 10/19/2022, Expires: 12/19/2022 [facility] Work Phone: Comment on above: Expected: 10/19/2022 , Expires: 12/19/2022 Start: 10-19-2022 End: 12-19-2022 Triiodothyronine (T3) Free [Mass/volume] in Serum or Plasma T3 FREE BLD Lab Routine Anxiety Thyromegaly Expected: 10/19/2022, Expires: 12/19/2022 [facility] Work Phone: Comment on above: Expected: 10/19/2022 , Expires: 12/19/2022 Start: 2022 PAP TESTING PAP TESTING [facility] Start: 2022 Screening for malign ant neoplasm of cervix Cervical Cancer Screening [facility] Start: 04-19-2022 Influenza vaccination [facility] Start: 2020 Third diphtheria, te tanus and acellular pertussis (DTaP) vaccination TDAP (ADULT) [facility] Start: 2019 CHLAMYDIA SCREENING (18-24) CHLAMYDIA SCREENING (18-24) [facility] Start: 2019 GC (GONORRHEA) SCREE DES (18-24) GC (GONORRHEA) SCREENING (18-24) [facility] Start: 2019 HEPATITIS C SCREENING HEPATITIS C [facility] Start: 2019 Hepatitis C screening Hepatitis C [facility] Start: 2019 HIV SCREENING HIV SCREENING [facility] Start: 2019 HIV screening HIV Screening [facility] Start: 2019 Screening for Chlamy ihsan trachomatis Chlamydia Screening (18-24) [facility] Start: 2019 Tetanus vaccination TETANUS [facility] Start: 2017 Meningococcal B Vacc ine: Consider Based On Risk (1 of 2 - Patient Seeks Protection) Meningococcal B Vaccine: Consider Based On Risk (1 of 2 - Patient Seeks Protection) [facility] Start: 2017 Screening for Chlamy ihsan trachomatis CHLAMYDIA SCREEN [facility] Start: 2016 HIV screening HIV SCREENING DISCUSSION [facility] Start: 2016 HPV Vaccine (1 - 3-d ose series) HPV Vaccine (1 - 3-dose series) [facility] Start: 2015 PEDS TO ADULT TRANSI TION ANNUAL ASSESSMENT PEDS TO ADULT TRANSITION ANNUAL ASSESSMENT [facility] Start: 2013 Adult depression scr eening assessment DEPRESSION SCREENING [facility] Start: 2013 PEDS TO ADULT TRANSI TION INITIAL DISCUSSION PEDS TO ADULT TRANSITION INITIAL DISCUSSION [facility] Start: 2012 HPV VACCINE (1 - 2-d ose series) HPV VACCINE (1 - 2-dose series) [facility] Start: 2012 Vaccination for rhett n papillomavirus HPV VACCINE ADOL (1 - 2-dose series) [facility] Start: 2011 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 B: 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 based on risk (1 of 2 - Risk Bexsero 2-dose series) 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 B: Consider based on risk (1 of 2 - Risk Bexsero 2-dose series) [facility] Start: 2006 COVID-19 VACCINE (#1) COVID-19 VACCI NE (#1) [facility] Start: 2001 COVID-19 VACCINE (#1) COVID-19 VACCI NE (#1) [facility] Start: 2001 GONORRHEA SCREEN GONORRHEA SCREEN [facility] Start: 2001 Hepatitis C antibody , confirmatory test HEPATITIS C VIRUS SCREENING [facility] End: 05-20-2022 Standard ECG [facility] Work Phone: Comment on above: One Time for Molly ziegler starting 05/20/2022 until 05/20/2022 Immunizations Immunization Date Immunization Notes Care Provider Patricio santos 06-03-2020 influenza virus vacc ine, unspecified formulation Shonna Addison ECONOMIC MANAGER.SENIOR WINDOWS ENGINEER Work Phone: [facility] 04-07-2019 meningococcal polysaccharide (groups A, C, Y and W-135) diphtheria toxoid conjugate vaccine (MCV4P) Shonna Addison ECONOMIC MANAGER.[facility] Work Phone: [facility] Work Phone: 03-30-2014 Meningococcal, MCV4, unspecified conjugate formulation(groups A, C, Y and W-135) Shonna Addison ECONOMIC MANAGER.[facility] Work Phone: [facility] Work Phone: 03-30-2014 tetanus toxoid, redu delfino diphtheria toxoid, and acellular pertussis vaccine, adsorbed Shonna Addison ECONOMIC MANAGER.SENIOR WINDOWS ENGINEER Work Phone: [facility] Work Phone: 01-27-2007 diphtheria, tetanus toxoids and acellular pertussis vaccine Shonna Addison ECONOMIC MANAGER.[facility] Work Phone: [facility] Work Phone: 01-27-2007 measles, mumps and rubella virus vaccine Shonna Addison ECONOMIC MANAGER.SENIOR WINDOWS ENGINEER Work Phone: [facility] Work Phone: 01-27-2007 poliovirus vaccine, inactivated Shonna Addison ECONOMIC MANAGER.SENIOR WINDOWS ENGINEER Work Phone: [facility] Work Phone: 01-27-2007 varicella virus vaccine Bridget kah Addison ECONOMIC MANAGER.SENIOR WINDOWS ENGINEER Work Phone: [facility] Work Phone: 12-28-2005 varicella virus vaccine Bridget kah Addison ECONOMIC MANAGER.SENIOR WINDOWS ENGINEER Work Phone: [facility] Work Phone: 12-21-2002 diphtheria, tetanus toxoids and acellular pertussis vaccine Shonna Addison ECONOMIC MANAGER.[facility] Work Phone: [facility] Work Phone: 09-21-2002 haemophilus influenz ae type b vaccine, HbOC conjugate Shonna Addison ECONOMIC MANAGER.[facility] Work Phone: [facility] Work Phone: 07-15-2002 hepatitis B vaccine, pediatric or pediatric/adolescent dosage Shonna Addison ECONOMIC MANAGER.[facility] Work Phone: [facility] Work Phone: 07-15-2002 measles, mumps and rubella virus vaccine Shonna Addison ECONOMIC MANAGER.[facility] Work Phone: [facility] Work Phone: 07-15-2002 poliovirus vaccine, inactivated Shonna Addison ECONOMIC MANAGER.[facility] Work Phone: [facility] Work Phone: 01-22-2002 haemophilus influenz ae type b vaccine, HbOC conjugate Shonna Addison ECONOMIC MANAGER.[facility] Work Phone: [facility] Work Phone: 2001 diphtheria, tetanus toxoids and acellular pertussis vaccine Shonna Addison ECONOMIC MANAGER.[facility] Work Phone: [facility] Work Phone: 2001 hepatitis B vaccine, pediatric or pediatric/adolescent dosage Shonna Addison ECONOMIC MANAGER.[facility] Work Phone: [facility] Work Phone: 2001 diphtheria, tetanus toxoids and acellular pertussis vaccine Shonna Addison ECONOMIC MANAGER.[facility] Work Phone: [facility] Work Phone: 2001 haemophilus influenz ae type b vaccine, HbOC conjugate Shonna Addison ECONOMIC MANAGER.[facility] Work Phone: [facility] Work Phone: 2001 poliovirus vaccine, inactivated Shonna Addison ECONOMIC MANAGER.SENIOR WINDOWS ENGINEER Work Phone: [facility] Work Phone: 2001 diphtheria, tetanus toxoids and acellular pertussis vaccine Shonna Addison ECONOMIC MANAGER.SENIOR WINDOWS ENGINEER Work Phone: [facility] Work Phone: 2001 haemophilus influenz ae type b vaccine, HbOC conjugate Shonnalali Montezman ECONOMIC MANAGER.SENIOR WINDOWS ENGINEER Work Phone: [facility] Work Phone: 2001 poliovirus vaccine, inactivated Shonna Addison ECONOMIC MANAGER.SENIOR WINDOWS ENGINEER Work Phone: [facility] Work Phone: 2001 hepatitis B vaccine, pediatric or pediatric/adolescent dosage Shonna Addison ECONOMIC MANAGER.SENIOR WINDOWS ENGINEER Work Phone: [facility] Work Phone: Payers Date Payer Category Payer Self-pay SELF PAY WITH IN S SELF PAY WITH INS [id number] 2022-Present [address] [place] [id number] 2022 Self-pay [id number] 2015 Unknown [employer] PPO OOS [id number] 2015-Present [phone] [address] [place] [address] PPO [id number] 2015 Unknown [employer] PPO OOS [id number] 2015-Present [phone] [address] [place] [address] PPO [id number] 2015 Unknown [id number] 2001 Unknown [id number] 2001 Unknown [id number] 2001 Unknown [id number] 2001 Unknown [id number] Social History Date Type Detail Facility Start: 10-19-2022 Tobacco smoking stat [facility] Never smoked tobacco [facility] Start: 01-17-2022 End: 03-04-2024 Alcohol intake Current non-drinker of alcohol (finding) [facility] Start: 2001 Sex Assigned At Not on file C [facility] Start: 01-07-2022 End: 05-20-2022 Exposure to SARS-CoV-2 (event) Not sure [facility] Tobacco smoking stat [facility] Tobacco smoking consumption unknown [facility] Start: 10-19-2022 Tobacco use and exposure Smokeless tobacco non-user [facility] Work Phone: Start: 05-15-2023 End: 03-04-2024 History of Social function [facility] Start: 05-15-2023 End: 03-04-2024 Tobacco use panel [facility] Adult Depression Screening Assessment 0 [facility] Clinical Notes 01-17-2022 to 03-04-2024 Patient InstructionsShonna Jaime APRN.SENIOR WINDOWS ENGINEER - 03/04/2024 9:24 AM EDTJomiri Egan DO - 10/22/2022 7:39 AM ESTDischarge Mejia Haney RN - 05/20/2022 3:35 AM EDT Note Date & Type Note Facility 03-04-2024 Instructions Shonna Jaime APRN.CNP - 03/04/2024 9:53 AM EDT Schedule with [facility] Continue your current medications. We'll add the Zoloft for you to take in the evenings. documented in this encounter [facility] 03-04-2024 Note HNO ID: [id number] Author: SHONNA JAIME APRN.PALMIRA Service: ? Author Type: Nurse Practitioner Type: Progress Notes Filed: 03/04/2024 18:30 Note Text: Chief Complaint Patient presents with: ER F/U: Abd pain, seeing gastro next month, anxiety HPI Gloria Nettles is a 23 year old female who presents here today for Above Complaints.. [facility] ER on 02/27 with abdominal pain and anxiety. Is seeing Dr. Adkins GI at [facility]. Stress/anxiety-work has been frustrating lately. Has been a bit stressed about money, but this isn't anything abnormal for her. Abdominal pain and anxiety will come and go, has gone an entire month without sx. Since last Saturday started with abdominal pain and cramping waking her up at nighttime. Worst sx are in the morning. Most of the time has diarrhea when she is not feeling well. Very occasionally will have constipation. Takes dicyclomine prn, if takes will be 1-2 times in a day-this helps somewhat and this lasts a few hours. Uiogxh-lbd-riqdr't like to take this a lot because reminds her of previous times being sick. But if really feeling bad with nausea or vomiting, will take this and is helpful. Vistaril-takes prn for her anxiety and this is helpful. Had been off of this for a while, but since last Saturday seems to have needed it more frequently. Has been doing breathing techniques, etc to get her through her increased anxiety episodes. Previously prescribed Remeron and felt terrible and crying in the morning. Past medical history, appointments, medications, allergies reviewed. Previous Medical History PAST MEDICAL HISTORY Diagnosis Date Intractable vomiting with nausea, unspecified vomiting type Marijuana user Noncompliance with treatment plan 11/24/2020 placed on care plan by [facility] ED for excessive visits Previous Surgical History PAST SURGICAL HISTORY Procedure Laterality Date COLONOSCOPY - DIAGNOSTIC 10/20/2020 EGD 10/20/2020 NONE Family History FAMILY HISTORY Problem Relation Age of Onset Thyroid Mother COPD Father Heart Maternal Grandmother Thyroid Maternal Grandmother Patient Allergies ALLERGIES No Known Allergies Current Medications Current Outpatient Medications on File Prior to Visit Medication Sig dicyclomine (BENTYL) 20 mg tablet TAKE 1 TABLET BY MOUTH THREE TIMES A DAY NEEDED FOR ABDOMINAL DISCOMFORT hydrOXYzine pamoate (VISTARIL) 25 mg capsule Take 25 mg by mouth three times a day as needed. ondansetron orally disintegrating (ZOFRAN ODT) 4 mg disintegrating tablet Take 1 tablet by mouth every 8 hours as needed. famotidine (PEPCID) 20 mg tablet Take 1 tablet by mouth twice daily. (Patient not taking: Reported on 03/04/2024) hyoscyamine sublingual (LEVSIN SL) 0.125 mg Take 1-2 tablets under tongue every 4hrs as needed. Max 12 tabs per day. (Patient not taking: Reported on 03/04/2024) No current facility-administered medications on file prior to visit. Social History Social History Tobacco Use Smoking status: Never Smokeless tobacco: Never Substance Use Topics Alcohol use: No Drug use: Not Currently Types: Marijuana Review of Symptoms REVIEW OF SYSTEMS See HPI, otherwise negative EXAM: BP 108/62 (BP Site: Left Arm, BP Position: Sitting, BP Cuff Size: Regular Adult) Pulse 81 Resp 16 Wt 54.2 kg (119 lb 6.4 oz) LMP 10/01/2022 (Exact Date) SpO2 99% BMI 20.49 kg/m? General Appearance: Well appearing, alert, in no acute distress, well-hydrated, well nourished.. Lungs: Lungs clear to auscultation. No wheezing, rhonchi, rales.. Heart: RRR without murmur, gallop, or rubs. No ectopy. Psychiatric: pleasant, cooperative. Health Maintenance List HPV Vaccine(1 - 3-dose series) Never done Meningococcal B Vaccine: Consider Based On Risk(1 of 2 - Patient Seeks Protection) Never done GC (Gonorrhea) Screening (18-) Never done Hepatitis C Screening Never done HIV Screening Never done Chlamydia Screening (18-) Never done Cervical Cancer Screening Never done Covid-19 Vaccine( - 2022- season) Never done Behavioral Health Screening Never done DTaP,Tdap,Td Vaccine(7 - Td or Tdap) due on 03/30/2024 Influenza Vaccine(1) due on 04/19/2024 Hepatitis B Vaccine Completed Data reviewed Previous records, office notes ASSESSMENT/PLAN: 1. Anxiety - ICD9: 300.00, ICD10: F41.9 (primary diagnosis) Continue with plan to see Dr. Adkins with [facility]. - SERTRALINE 50 MG TABLET - CONSULT TO PSYCHIATRY 2. Abdominal cramping - ICD9: 789.00, ICD10: R10.9 Continue with plan to see Dr. Akdins with [facility]. - SERTRALINE 50 MG TABLET - CONSULT TO PSYCHIATRY 3. Nausea and vomiting, unspecified vomiting type - ICD9: 787.01, ICD10: R11.2 Continue with plan to see Dr. Adkins with [facility]. - SERTRALINE 50 MG TABLET - CONSULT TO PSYCHIATRY Shonna Jaime APRN.[facility] 03-04-2024 History of Present illness Narrative Chief Complaint Patient presents with: ER F/U: Abd pain, seeing gastro next month, anxiety HPI Gloria Nettles is a 23 year old female who presents here today for Above Complaints.. [facility] ER on 02/27 with abdominal pain and anxiety. Is seeing Dr. Adkins GI at [facility]. Stress/anxiety-work has been frustrating lately. Has been a bit stressed about money, but this isn't anything abnormal for her. Abdominal pain and anxiety will come and go, has gone an entire month without sx. Since last Saturday started with abdominal pain and cramping waking her up at nighttime. Worst sx are in the morning. Most of the time has diarrhea when she is not feeling well. Very occasionally will have constipation. Takes dicyclomine prn, if takes will be 1-2 times in a day-this helps somewhat and this lasts a few hours. Zohxdv-cxf-oqpws't like to take this a lot because reminds her of previous times being sick. But if really feeling bad with nausea or vomiting, will take this and is helpful. Vistaril-takes prn for her anxiety and this is helpful. Had been off of this for a while, but since last Saturday seems to have needed it more frequently. Has been doing breathing techniques, etc to get her through her increased anxiety episodes. Previously prescribed Remeron and felt terrible and crying in the morning. Past medical history, appointments, medications, allergies reviewed. Previous Medical History PAST MEDICAL HISTORY Diagnosis Date Intractable vomiting with nausea, unspecified vomiting type Marijuana user Noncompliance with treatment plan 11/24/2020 placed on care plan by [facility] ED for excessive visits Previous Surgical History PAST SURGICAL HISTORY Procedure Laterality Date COLONOSCOPY - DIAGNOSTIC 10/20/2020 EGD 10/20/2020 NONE Family History FAMILY HISTORY Problem Relation Age of Onset Thyroid Mother COPD Father Heart Maternal Grandmother Thyroid Maternal Grandmother Patient Allergies ALLERGIES No Known Allergies Current Medications Current Outpatient Medications on File Prior to Visit Medication Sig dicyclomine (BENTYL) 20 mg tablet TAKE 1 TABLET BY MOUTH THREE TIMES A DAY NEEDED FOR ABDOMINAL DISCOMFORT hydrOXYzine pamoate (VISTARIL) 25 mg capsule Take 25 mg by mouth three times a day as needed. ondansetron orally disintegrating (ZOFRAN ODT) 4 mg disintegrating tablet Take 1 tablet by mouth every 8 hours as needed. famotidine (PEPCID) 20 mg tablet Take 1 tablet by mouth twice daily. (Patient not taking: Reported on 03/04/2024) hyoscyamine sublingual (LEVSIN SL) 0.125 mg Take 1-2 tablets under tongue every 4hrs as needed. Max 12 tabs per day. (Patient not taking: Reported on 03/04/2024) No current facility-administered medications on file prior to visit. Social History Social History Tobacco Use Smoking status: Never Smokeless tobacco: Never Substance Use Topics Alcohol use: No Drug use: Not Currently Types: Marijuana Review of Symptoms REVIEW OF SYSTEMS See HPI, otherwise negative EXAM: BP 108/62 (BP Site: Left Arm, BP Position: Sitting, BP Cuff Size: Regular Adult) Pulse 81 Resp 16 Wt 54.2 kg (119 lb 6.4 oz) LMP 10/01/2022 (Exact Date) SpO2 99% BMI 20.49 kg/m General Appearance: Well appearing, alert, in no acute distress, well-hydrated, well nourished.. Lungs: Lungs clear to auscultation. No wheezing, rhonchi, rales.. Heart: RRR without murmur, gallop, or rubs. No ectopy. Psychiatric: pleasant, cooperative. Health Maintenance List HPV Vaccine(1 - 3-dose series) Never done Meningococcal B Vaccine: Consider Based On Risk(1 of 2 - Patient Seeks Protection) Never done GC (Gonorrhea) Screening (18-24) Never done Hepatitis C Screening Never done HIV Screening Never done Chlamydia Screening (18-24) Never done Cervical Cancer Screening Never done Covid-19 Vaccine(1 - 2022-24 season) Never done Behavioral Health Screening Never done DTaP,Tdap,Td Vaccine(7 - Td or Tdap) due on 03/30/2024 Influenza Vaccine(1) due on 04/19/2024 Hepatitis B Vaccine Completed Data reviewed Previous records, office notes ASSESSMENT/PLAN: 1. Anxiety - ICD9: 300.00, ICD10: F41.9 (primary diagnosis) Continue with plan to see Dr. Adkisn with [facility]. - SERTRALINE 50 MG TABLET - CONSULT TO PSYCHIATRY 2. Abdominal cramping - ICD9: 789.00, ICD10: R10.9 Continue with plan to see Dr. Adkins with [facility]. - SERTRALINE 50 MG TABLET - CONSULT TO PSYCHIATRY 3. Nausea and vomiting, unspecified vomiting type - ICD9: 787.01, ICD10: R11.2 Continue with plan to see Dr. Adkins with [facility]. - SERTRALINE 50 MG TABLET - CONSULT TO PSYCHIATRY Shonna Jaime APRN.SENIOR WINDOWS ENGINEER documented in this encounter [facility] 10-22-2022 History of Present illness Narrative CC: Gloria Nettles is a 22 year old female who presents to the office for physical HPI: She is overall doing well. Her anxiety symptoms she states are much better controlled and managed. She is not taking her cymbalta or prn Ativan for the last few months. She had to move out of her parent's home at 21 years old since they were downsizing their home. She is renting a home in [place]. 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 She is unsure what her future goals in life are- unsure if will go to school or find another job etc. Does have friend support. PAST MEDICAL HISTORY Diagnosis Date Intractable vomiting with nausea, unspecified vomiting type Marijuana user Noncompliance with treatment plan 11/24/2020 placed on care plan by [facility] ED for excessive visits PAST SURGICAL HISTORY Procedure Laterality Date COLONOSCOPY - DIAGNOSTIC 10/20/2020 EGD 10/20/2020 NONE Social History: Social History Tobacco Use Smoking status: Never Smokeless tobacco: Never Substance Use Topics Alcohol use: No Drug use: Not Currently Types: Marijuana FAMILY HISTORY Problem Relation Age of Onset Thyroid Mother COPD Father Heart Maternal Grandmother Thyroid Maternal Grandmother Current Outpatient prescriptions: famotidine (PEPCID) 20 mg tablet Take 1 tablet by mouth twice daily. ondansetron orally disintegrating (ZOFRAN ODT) 4 mg disintegrating tablet Take 1 tablet by mouth every 8 hours as needed. hyoscyamine sublingual (LEVSIN SL) 0.125 mg Take 1-2 tablets under tongue every 4hrs as needed. Max 12 tabs per day. DULoxetine (CYMBALTA) 20 mg capsule Take 1 capsule by mouth once daily. Allergies: ALLERGIES No Known Allergies ROS: See HPI PE: 10/19/22 1514 BP: 120/60 Pulse: 96 Resp: 16 Temp: 36.6 C (97.8 F) TempSrc: Left Tympanic Weight: 55.8 kg (123 lb) Gen: A&O, NAD, non-toxic appearing, Pleasant, cooperative HEENT: NT/AC, PERRLA, EOMs intact b/l, nares clear and patent b/l, pharynx without erythema, exudate or lesions. MMM, Uvula midline. EACs without erythema or debris. TMs pearly sloan with intact landmarks b/l. Neck: supple, No cervical LAD, mild non tender symmetric thyromegaly, no carotid bruits CV: RRR, normal S1 and S2, no murmurs, no gallops, no rubs, Pulses 2+ and symmetric in UE and LE b/l Lungs: normal respiratory effort, CTA b/l, no wheezing or rhonchi or rales Abd: soft, NT, ND, +BS, no hepatosplenomegaly MS: FROM all 4 extremities Neuro: CN II-XII intact b/l, strength 5/5 b/l UE and LE, DTRs 2/4 UE and LE, sensation intact. Skin: warm, dry, intact, No rashes or lesions on exposed skin. No edema ASSESSMENT/PLAN: 1. Well adult exam - ICD9: V70.0, ICD10: Z00.00 (primary diagnosis) - Counseled on healthy diet and regular exercise - Calcium intake with supplements or by diet of 1000 mg/day for under 50, 7204-7023 mg/day for 50+ 2. Anxiety - ICD9: 300.00, ICD10: F41.9 Recheck labs as ordered, she isn't taking any medications at this time. - CBC + DIFF - COMP METABOLIC PANEL - TSH BLD - T4 FREE/FREE THYROX - T3 FREE BLD - THYROID PEROXIDASE ANTIBODY BLOOD 3. Thyromegaly - ICD9: 240.9, ICD10: E01.0 Check labs, minimal on exam, consider thyroid US if labs are atypical. Otherwise recheck on exam in 6-12 months - CBC + DIFF - COMP METABOLIC PANEL - TSH BLD - T4 FREE/FREE THYROX - T3 FREE BLD - THYROID PEROXIDASE ANTIBODY BLOOD Wilfred Egan DO To ER if develops chest pain, shortness of breath, or severe worsening of symptoms. Discussed risks, benefits, alternatives, and potential side effects of medications. Patient expressed understanding and agreed with the plan. Wilfred Egan DO [address] [place] [address] documented in this encounter [facility] 05-20-2022 Hospital Discharge instructions Shaun Bean MD - 05/20/2022 5:40 AM EDT You came to the Emergency Department today for anxiety. You were given Ativan with improvement in your symptoms as well as Compazine for nausea. The following attachments cannot be sent through Care Everywhere.Anxiety Disorders: General Info (Polish)documented in this encounter [facility] 05-20-2022 Emergency department Note Patient c/o anxiety and panic attacks. Patient states that panic attack is getting better but is not going away. Patient concerned that her anxiety is keeping friends awake. Patient denies SI/HI [facility] 05-20-2022 Emergency department Note Patient c/o anxiety and panic attacks. Patient states that panic attack is getting better but is not going away. Patient concerned that her anxiety is keeping friends awake. Patient denies SI/HI documented in this encounter [facility] 02-01-2022 History of Present illness Narrative Behavioral Health Social Work Assessment Patient was seen for an initial evaluation. All information is from patient report except when noted. This evaluation is NOT intended for forensic, disability, or child custody purposes. Informed consent was discussed and signed by the patient. -Pt was sent mychart msg with consent for tx -mychart msg viewed [facility] Assessment: Virtual No Show 9:10am Pt had not joined visit -SW attempted to contact Pt -no answer -left vm, if available to join visit please join visit, BHSW will remain on visit for additional 15 min, if unable please call to reschedule appt 9:50am -no response from Pt -sent mychart msg to reschedule appt, -included no show ltr Patient identified for [facility] from: PCP (Shonna Jaime, [place]) Reason for referral: [facility] Assessment (failed mental health tx,depression/anxiety) [facility] encounter type: [employer] Message Attempts to Outreach: 5 attempts Referral made: Psychology - Internal Psychology-Internal referral type: (left vm to reschedule appt, sent mychart msg) Final Disposition: Resources given (02-01-22 no show for appt, attempted to call Pt, left vm, sent mychart msg to resched appt, included no show ltr) Patient Discharged?: Yes Patient reported that caregiver was able to meet their needs today?: N/A BUDDY Brenner documented in this encounter [facility] 01-17-2022 Miscellaneous Notes BEHAVIORAL HEALTH SOCIAL WORK CONSULT NOTE Service Date: January 17, 2022 Patient was identified by name and Patient: Gloria Greer [facility] [place] [address] (home) [phone] (cell) PCP: Wilfred Egan, DO [address] [facility] [address] Patient identified for [facility] from: PCP (Shonna Jaime CNP) Reason for referral: [facility] Assessment (failed mental health tx,depression/anxiety) [facility] encounter type: Telephone Encounter Assessment: [facility] received a consult from Shonna Jaime CNP, for assessment failed mental health tx, depression/anxiety [facility] reviewed Pt's chart/insurance [facility] contacted Pt -scheduled 02-01-22 at 9am virtual -sent iraj lai with appt info, consent for tx, PHQ9 and GAD7 Medications: Current Outpatient Medications on File Prior to Visit Medication Sig famotidine (PEPCID) 20 mg tablet Take 1 tablet by mouth twice daily. ondansetron orally disintegrating (ZOFRAN ODT) 4 mg disintegrating tablet Take 1 tablet by mouth every 8 hours as needed. hyoscyamine sublingual (LEVSIN SL) 0.125 mg Take 1-2 tablets under tongue every 4hrs as needed. Max 12 tabs per day. DULoxetine (CYMBALTA) 20 mg capsule Take 1 capsule by mouth once daily. LORazepam (ATIVAN) 0.5 mg Take 1 tablet by mouth twice daily as needed for up to 30 days. No current facility-administered medications on file prior to visit. Curbside: No Screening Tools: No Substance Use / Abuse: No Outcome / Plan / Referrals: Attempts to Outreach: 1 attempt Referral made: Psychology - Internal Psychology-Internal referral type: (scheduled assessment for 02-01-22 at 9am virtual) Final Disposition: Care established with (scheduled assessment for 02-01-22 at 9am virtual) Patient Discharged?: Yes Patient reported that caregiver was able to meet their needs today?: Yes Internal Referrals : Yes -Patient advised of treatment options available at [facility]. Patient was informed that they will be moving on for further evaluation if seeking treatment within the [facility] system. Reason for External Referrals : N/A Intervention: Supportive Listening Scheduled Assessment Offered virtual visit Resources Provided: Further evaluation and assessment Virtual Visit Time Spent: 15 minutes BUDDY Brenner documented in this encounter [facility] 01-17-2022 Instructions Shonna Jaime APRN.CNP - 01/17/2022 8:54 AM EDT Start on Cymbalta. Take the Ativan (lorazepam) as needed for severe anxiety/depression. Take the hycosamine as needed for cramping. Take Zofran as needed for the nausea/vomiting. documented in this encounter [facility] 01-17-2022 History of Present illness Narrative Chief Complaint Patient presents with: Anxiety Depression Abdominal Pain Vomiting HPI Gloria Nettles is a 21 year old female who presents here today for Above Complaints. Today: Wakes up in the morning with abdominal pain and hurts so bad that she cries. Typically will go to the bathroom, sometimes have a bowel movement-does not improve the pain. Will be nauseated throughout the day. Vomits 2-3 times/week. Can vomit 10 times in a day until she is just bringing up bile. Does not have heartburn. Has a job at [employer]. Has been off work the past 2 days because has not been feeling well. They are pretty understanding with her. Is embarrassing and frustrating. Multiple ER visits. Extensive GI workup. Past medical history, appointments, medications, allergies reviewed. Has stopped taking the Zoloft. Did IOP program at [facility]. Was then prescribed Remeron-felt poorly on this and felt like a zombie and had to pry her eyes open in the mornings. Sopped this after about 2 weeks-didn't take long enough to know if it was helpful. Has previously taken lorazepam, but has been quite a while. Did seem helpful-at least more than other things. Denies SI/HI. Previous Medical History PAST MEDICAL HISTORY Diagnosis Date Intractable vomiting with nausea, unspecified vomiting type Marijuana user Noncompliance with treatment plan 11/24/2020 placed on care plan by [facility] ED for excessive visits Previous Surgical History PAST SURGICAL HISTORY Procedure Laterality Date COLONOSCOPY - DIAGNOSTIC 10/20/2020 EGD 10/20/2020 NONE Family History FAMILY HISTORY Problem Relation Age of Onset Thyroid Mother COPD Father Heart Maternal Grandmother Thyroid Maternal Grandmother Patient Allergies ALLERGIES No Known Allergies Current Medications Current Outpatient Medications on File Prior to Visit Medication Sig famotidine (PEPCID) 20 mg tablet Take 1 tablet by mouth twice daily. LORazepam (ATIVAN) 0.5 mg Take 0.5 mg by mouth every 6 hours as needed. ondansetron orally disintegrating (ZOFRAN ODT) 4 mg disintegrating tablet Take 1 tablet by mouth every 8 hours as needed. sertraline (ZOLOFT) 50 mg tablet Take 1 tablet by mouth daily. hyoscyamine sublingual (LEVSIN SL) 0.125 mg Take 1-2 tablets under tongue every 4hrs as needed. Max 12 tabs per day. No current facility-administered medications on file prior to visit. Social History Social History Tobacco Use Smoking status: Never Smoker Smokeless tobacco: Never Used Substance Use Topics Alcohol use: No Drug use: Not Currently Types: Marijuana Review of Symptoms REVIEW OF SYSTEMS See HPI, otherwise negative EXAM: BP 104/74 (BP Site: Left Arm, BP Position: Sitting, BP Cuff Size: Regular Adult) Pulse 74 Resp 16 Wt 61.2 kg (135 lb) LMP 09/19/2020 SpO2 97% BMI 23.17 kg/m General Appearance: Well appearing, alert, in no acute distress, well-hydrated, well nourished.. Lungs: Lungs clear to auscultation. No wheezing, rhonchi, rales.. Heart: RRR without murmur, gallop, or rubs. No ectopy. Abdomen: Generalized abdominal tenderness with palpation. Bowel sounds present. Psychiatric: tearful, pleasant, cooperative. Denies DI/HI. Health Maintenance List COVID-19 VACCINE(1) Never done 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 B: Consider based on risk(1 of 2 - Risk Bexsero 2-dose series) Never done HPV VACCINE(1 - 2-dose series) Never done DEPRESSION SCREENING Never done GC (GONORRHEA) SCREENING (18-24) Never done HEPATITIS C SCREENING Never done HIV SCREENING Never done CHLAMYDIA SCREENING (18-24) Never done INFLUENZA(Season Ended) due on 04/19/2022 DTAP,TDAP,TD(7 - Td or Tdap) due on 03/30/2024 Data reviewed Previous records/office notes ASSESSMENT/PLAN: 1. Major depressive disorder, remission status unspecified, unspecified whether recurrent - ICD9: 296.20, ICD10: F32.9 (primary diagnosis) Begin low dose duloxetine. Lorazepam prn severe situational anxiety/depression. hycosamine prn abdominal cramping Consult to psychiatry-requesting [place]MIRA Gandara for patient's care Patient does understand and agree that abdominal sx are likely caused by her anxiety and depression. Follow up in 1 month, depending on appointment with psychiatry. - CONSULT TO PRIMARY CARE BEHAVIORAL HEALTH ADULT - LORAZEPAM 0.5 MG TABLET 2. Anxiety - ICD9: 300.00, ICD10: F41.9 Begin low dose duloxetine. Lorazepam prn severe situational anxiety/depression. hycosamine prn abdominal cramping Consult to psychiatry-requesting PALMIRA Gandara for patient's care Patient does understand and agree that abdominal sx are likely caused by her anxiety and depression. Follow up in 1 month, depending on appointment with psychiatry. - CONSULT TO PRIMARY CARE BEHAVIORAL HEALTH ADULT - LORAZEPAM 0.5 MG TABLET 3. Chronic superficial gastritis without bleeding - ICD9: 535.10, ICD10: K29.30 Begin low dose duloxetine. Lorazepam prn severe situational anxiety/depression. hycosamine prn abdominal cramping Consult to psychiatry-requesting PALMIRA Gandara for patient's care Patient does understand and agree that abdominal sx are likely caused by her anxiety and depression. Follow up in 1 month, depending on appointment with psychiatry. - FAMOTIDINE 20 MG TABLET - CONSULT TO PRIMARY CARE BEHAVIORAL HEALTH ADULT - LORAZEPAM 0.5 MG TABLET 4. Lower abdominal pain - ICD9: 789.09, ICD10: R10.30 Begin low dose duloxetine. Lorazepam prn severe situational anxiety/depression. hycosamine prn abdominal cramping Consult to psychiatry-requesting PALMIRA Gandara for patient's care Patient does understand and agree that abdominal sx are likely caused by her anxiety and depression. Follow up in 1 month, depending on appointment with psychiatry. - HYOSCYAMINE 0.125 MG SUBLINGUAL TABLET - CONSULT TO PRIMARY CARE BEHAVIORAL HEALTH ADULT - LORAZEPAM 0.5 MG TABLET Shonna Jaime APRN.CNP PDMP website checked and validated. All prescriptions have been APPROPRIATELY filled. No suspicious activity was identified. 01/17/2022 by Shonna Jaime CNP. Greater than 50% of 40-minute visit spent face to face with patient in counseling and education. documented in this encounter [facility] Evaluation note Diagnosis Major depressive disorder, remission status unspecified, unspecified whether recurrent- Primary Anxiety Anxiety state, unspecified Chronic superficial gastritis without bleeding Atrophic gastritis without mention of hemorrhage Lower abdominal pain Abdominal pain, other specified site [facility] Diagnosis No-show for appointment- Primary [facility] Diagnosis Anxiety- Primary Anxiety state, unspecified [facility] Well adult exam- Primary Routine general medical examination at a health care facility Anxiety Anxiety state, unspecified Thyromegaly Goiter, unspecified [facility] Diagnosis Anxiety- Primary Anxiety state, unspecified Abdominal cramping Abdominal pain, unspecified site Nausea and vomiting, unspecified vomiting type documented in this encounter [facility] Summary Purpose Family History No Family History Records FoundNo Family History Records FoundNo Family History Records FoundNo Family History Records Found Advance Directives No Advanced Directives Records FoundDocuments on File Type Date Recorded Patient [employer] Expl anation Advance Directive(s) 10/20/2020 10:47 AM Reason for Referral Specialty Diagnoses / Procedures Referred By Claudio gonzales Referred To Contact Procedures ECG Savage Scott MD [address] [place] [phone] Referral ID Status Reason Start Date Expiration Date V isits Requested Visits Authorized [id number] New Request 05/20/2022 06/14/2023 1 1 Specialty Diagnoses / Procedures Referred By Claudio gonzales Referred To Contact Diagnoses Anxiety Abdominal cramping Nausea and vomiting, unspecified vomiting type Procedures CONSULT TO PSYCHIATRY OFFICE/OUTPATIENT [facility] 60 MINUTES Shonna Jaime APRN.CNP [address] [place] [address] Referral ID Status Reason Start Date Expiration Date Visits Requested Visits Authorized [id number] Pending Review PCP Requested Referral 03/04/2024 03/04/2025 1 1 Additional Source Comments INFORMATION SOURCE (unrecogn ized section and content) DATE CREATED AUTHOR 10/27/2020 [facility] DATE CREATED AUTHOR AUTHOR'S ORGANIZ ATION 06/14/2022 [facility] DATE CREATED AUTHOR AUTHOR'S ORGANIZ ATION 05/23/2023 [facility] DATE CREATED AUTHOR AUTHOR'S ORGANIZ ATION 03/07/2024 [facility] Source Comments (unrecognize d section and content) In the event this informatio n is protected by the Federal Confidentiality of Alcohol and Drug Abuse Patient Records regulations: The Federal rules restrict any use of the information to criminally investigate or prosecute any alcohol or drug abuse patient.[facility] the event this information is protected by the Federal Confidentiality of Alcohol and Drug Abuse Patient Records regulations: The Federal rules restrict any use of the information to criminally investigate or prosecute any alcohol or drug abuse patient.[facility] the event this information is protected by the Federal Confidentiality of Alcohol and Drug Abuse Patient Records regulations: The Federal rules restrict any use of the information to criminally investigate or prosecute any alcohol or drug abuse patient.[facility] the event this information is protected by the Federal Confidentiality of Alcohol and Drug Abuse Patient Records regulations: The Federal rules restrict any use of the information to criminally investigate or prosecute any alcohol or drug abuse patient.[facility] the event this information is protected by the Federal Confidentiality of Alcohol and Drug Abuse Patient Records regulations: The Federal rules restrict any use of the information to criminally investigate or prosecute any alcohol or drug abuse patient.[facility] the event this information is protected by the Federal Confidentiality of Alcohol and Drug Abuse Patient Records regulations: The Federal rules restrict any use of the information to criminally investigate or prosecute any alcohol or drug abuse patient.[facility] Reason for Visit (unrecogniz ed section and content) Reason Comments Anxiety Depression Abdominal Pain Vomiting Reason Comments Consult Initial [facility] Pt Outr each Reason Comments Consult [facility] Assessment Virt ual Specialty Diagnoses / Procedures Referred By Claudio t Referred To Contact Psychiatry / ADULT PSYCHOLOGY Diagnoses 1st eval Procedures VIDEO PSYC/PSYL AUDREY Montezman Shonna, ECONOMIC MANAGER.SENIOR WINDOWS ENGINEER [address] [place] [address] Bowen Leroy LISW [address] [place] [address] Referral ID Status Reason Start Date Expiration Date V isits Requested Visits Authorized [id number] Authorized 08/19/2021 08/18/2022 99 99 Reason Comments Anxiety Reason Comments Hospital F/U Reason Comments ER F/U Abd pain, seeing gas tro next month, anxiety Care Teams (unrecognized sec tion and content) Bank Reconciliator Relationship Specialty Start Date End Date Wiflred Egan DO [address] [place] [address] PCP - General Family Practice 09/05/15 Bank Reconciliator Relationship Specialty Start Date End Date Wilfred Egan DO [address] [place] [address] PCP - General Family Practice 09/05/15 Bank Reconciliator Relationship Specialty Start Date End Date Wilfred Egan DO [address] [place] [address] PCP - General Family Practice 09/05/15 Bank Reconciliator Relationship Specialty Start Date End Date Wilfred Egan DO [address] [place] [address] PCP - General Family Medicine 09/05/15 Bank Reconciliator Relationship Specialty Start Date End Date Wilfred Egan DO [address] [place] [address] PCP - General Family Medicine 09/05/15 Scheduled Active and Recently Administ ered Medications (unrecognized section and content) Medication Order 05/18/2022 05/19/2022 05/20/2022 LORazepam (ATIVAN) tablet 2 mg (COMPLETED) 2 mg, Oral, ONCE, 1 dose, On 05/20/22 at 0515 0446 (Given - Provid er: Db Cooper RN) prochlorperazine (COMPAZINE) tablet 5 mg (COMPLETED) 5 mg, Oral, ONCE, 1 dose, On 05/20/22 at 0545 0530 (Given - Provid er: Db Cooper RN) FOR RECORDS PERTAINING TO PATIENTS WHO ARE OR HAVE BEEN ENROLLED IN A CHEMICAL DEPENDENCY/SUBSTANCEABUSE PROGRAM, SOME INFORMATION MAY BE OMITTED. This clinical summary was aggregated from multiple sources. Caution should be exercised in using it in the provision of clinical care. This summary normalizes information from multiple sources, and as a consequence, information in this document may materially change the coding, format and clinical context of patient data. In addition, data may be omitted in some cases. CLINICAL DECISIONS SHOULD BE BASED ON THE PRIMARY CLINICAL RECORDS. [facility]. provides no warranty or guarantee of the accuracy or completeness of information in this document.
[2024-06-11 12:00] VITALS: BP 102/47; PULSE 88; RESP 16
[2024-06-11] MEDS: DiphenhydrAMINE 50 MG, ChlorproMAZINE IM 25 MG in 0.9% Normal Saline (100mL Bag) 100 ML 204 MG IV (12:06)
[2024-06-11 13:12] VITALS: BP 109/54; PULSE 68; RESP 16
--- NOTE | 2024-06-11 15:05 | EX.ED.DYSGE1 ---
HPI History of Present Illness Chief Complaint: Nausea/Vomiting Informant: patient Narrative Narrative: 23-year-old female presenting to the emergency room with the chief complaint of vomiting. Patient states that she woke this morning having nausea and vomiting and significant anxiety. She states she cannot stop shaking. She denies any diarrhea. She reports that she has been seeing gastroenterology and recently underwent EGD colonoscopy and gastric emptying. She states that she does occasionally use cannabis. The patient states that that her upper abdomen is hurting her. Is reported by nursing that the patient has a care plan. [facility] Medical History Wears glasses History of steroid therapy Vapes nicotine containing substance Marijuana use Panic disorder Major depressive disorder, single episode, severe without psychosis Generalized anxiety disorder Home Medications ?Medication ?Instructions ?Recorded ?Last Taken ?Type hydroxyzine pamoate 25 mg capsule 25 mg PO TID PRN anxiety #20 caps 05/22/22 Unknown Rx (Vistaril) ondansetron 4 mg disintegrating 4 mg PO Q8H PRN PRN Nausea #10 tabs 05/29/23 Unknown Rx tablet dicyclomine 20 mg tablet 20 mg PO TID PRN abdominal 03/13/24 03/27/24 Rx discomfort #30 tabs sertraline 50 mg tablet 50 mg PO QHS 03/31/24 03/31/24 History Allergy/AdvReac Type Severity Reaction Status Date / Time No Known Allergies Allergy Verified 06/11/24 08:43 Surgical History Hx of colonoscopy History of esophagogastroduodenoscopy (EGD) Social History Smoking Status: Current every day smoker tobacco type: e-cigarettes substance use type: marijuana ROS ROS ED Constitutional Constitutional ED: Denies chills, fever(s) or weight loss Eyes Eyes: Denies change in vision or diplopia ENT ENT ED: Denies ear pain, rhinorrhea or sore throat Cardiovascular Cardiovascular: Denies chest pain, orthopnea, palpitations or racing heartbeat Respiratory/Chest Respiratory/Chest: Denies cough, dyspnea or orthopnea Gastrointestinal Gastrointestinal: Reports abdominal pain, nausea and vomiting; Denies diarrhea Genitourinary Genitourinary ED: Denies dysuria, hematuria or urinary frequency Musculoskeletal Musculoskeletal: Denies arthralgias or myalgias Integumentary Denies abscess or rash Neurologic Neurologic: Denies headache(s) or weakness Psychiatric Psychiatric: Reports anxiety; Denies depression, suicidal ideation or suicidal thoughts Endocrine Endocrinology: Denies polydipsia, polyphagia or polyuria Allergic/Immunologic Allergic/Immunologic ED: Denies mouth swelling, tongue swelling or urticaria EXAM Physical Exam Narrative Exam Narrative: Patient is laying in the bed shaking and crying. She is retching. Const Vital Signs: 06/11/24 08:43 06/11/24 08:44 06/11/24 10:43 Temperature 98 F Temperature Source Temporal Pulse Rate 131 H 123 H 126 H Respiratory Rate 20 H 20 H 22 H Blood Pressure 124/65 H 130/99 H 129/78 H Blood Pressure Mean 84 109 95 Pulse Ox 99 100 100 Oxygen Delivery Method Room Air Room Air 06/11/24 12:00 06/11/24 13:12 Temperature Temperature Source Pulse Rate 88 68 Respiratory Rate 16 16 Blood Pressure 102/47 L 109/54 L Blood Pressure Mean 65 72 Pulse Ox Oxygen Delivery Method Positive well nourished and well developed General Appearance ED: well developed HEENT Reports normocephalic, head/scalp atraumatic and moist mucous membranes Eyes PERRL and EOMs intact bilaterally Neck no lymphadenopathy, supple and no JVD Resp normal respiratory effort and clear to auscultation bilaterally Cardio regular rate, regular rhythm and no murmurs Rate: tachycardic GI Palpation: soft and tender epigastric; Negative for guarding or rebound tenderness present Back/Spine no CVA tenderness and normal ROM Extremity normal to inspection General Extremety ED: Negative for edema General Extremity: Negative for edema Neuro oriented x3 and CN's II-XII intact bilaterally Sensorium / Orientation: alert Motor Exam: strength 5/5 throughout Psych Mood & Affect: anxious and tearful Skin no rashes or lesions noted and no wounds MDM MDM MDM Narrative Medical decision making narrative: I reviewed the patient's chart I see that she has a history of cyclic vomiting syndrome. Therefore initial cyclic vomiting treatment was ordered which improved her but her symptoms started to return and therefore she was given Thorazine and Benadryl. She is tolerating p.o. fluids. I spoke with the patient and advised her that if she can keep p.o. fluids down we can discharge her at this time. vital signs appear stable and this is a acute exacerbation of her chronic illness. Nursing tells me that she removed her IV showed that it was out and has subsequently left the department History & Record Review Discussion w/independent historian: Patient Additional record(s) reviewed:: Prior outpatient record, Prior ED visit and Prior labs Lab Data Attestation: I reviewed the patient's lab results. Labs: Laboratory Results - last 24 hr 06/11/24 09:05 Serum , Qual NEGATIVE Discharge Plan Triage Chief Complaint: Nausea/Vomiting ED Provider: Fernando Sanchez Dx/Rx/DC Orders Clinical Impression: Cyclical vomiting, Anxiety Instructions: ED Cyclic Vomiting Syndrome Prescriptions: No Action dicyclomine 20 mg tablet 20 mg PO TID PRN (Reason: abdominal discomfort) Qty: 30 3RF hydroxyzine pamoate [Vistaril] 25 mg capsule 25 mg PO TID PRN (Reason: anxiety) Qty: 20 0RF ondansetron 4 mg tablet,disintegrating 4 mg PO Q8H PRN PRN (Reason: Nausea) Qty: 10 0RF sertraline 50 mg tablet 50 mg PO QHS Patient Comments: TAKE 0.5 TABLETS BY MOUTH ONCE DAILY FOR 14 DAYS, THEN 1 TABLET ONCE DAILY. Primary Care Provider: Wilfred Nova Referrals: Wilfred Nova DO [Primary Care Provider] - As Needed Friend,DO Jason [Med Staff - Active Staff] - Keep Meme appointment Print Language: Luxembourgish Disposition Disposition: Home, Self Care Discharge Date/Time: 06/11/24 14:09
== END 2024-06-11 14:09 | disposition home or self-care (01) ==
PROVIDERS: Emergency Provider Emergency Medicine; PCP Student in an Organized Health Care Education/Training Program; Visit Provider Emergency Medicine
DX: R11.15 Cyclical vomiting syndrome unrelated to migraine (principal); F32.2 Major depressive disorder, single episode, severe without psychotic features; F41.0 Panic disorder [episodic paroxysmal anxiety]; Z79.899 Other long term (current) drug therapy; F17.290 Nicotine dependence, other tobacco product, uncomplicated
CPT/HCPCS: 84703; 96361; 96365; 96374; 96375; 99282; J7030; A4216; J2405; J3490

== ENCOUNTER 2024-06-25 07:32 | Emergency (ER) | payer BC, SELFPAY ==
[2024-06-25 07:32] VITALS: BP 119/76; PULSE 81; RESP 14; TEMP 36.6; O2SAT 98; BMI 21.7
[2024-06-25] MEDS: hydrOXYzine 10 MG Tablet PO (08:32)
[2024-06-25] MEDS: ChlorproMAZINE 50 MG/2 ML Ampul 25 MG IM (08:32)
[2024-06-25] MEDS: DiphenhydrAMINE 25 MG Capsule PO (08:32)
[2024-06-25] MEDS: Metoclopramide 10 MG/2 ML Vial 5 MG IV (09:16)
[2024-06-25 09:22] LABS: Absolute Lymphocyte Count 1.02 X10^3/uL (0.83-4.51); Absolute Neutrophil Count 10.7 X10^3/uL (2.0-7.7); Basophil# 0.06 X10^3/uL; Basophil% 0.5 % (0-1); Eosinophil# 0.07 X10^3/uL; Eosinophils% 0.6 % (0-5); Hematocrit 39.3 % (37-47); Hemoglobin 13.8 g/dL (12.0-15.0); Lymphocyte # 1.02 X10^3/ul (0.83-4.51); Lymphocyte % 8.3 % (19-41); Mean Corp Hgb Conc 35.1 g/dL (32-36); Mean Corpuscular Hgb 30.5 pg (27.0-32.0); Mean Corpuscular Volume 86.9 fL (81-99); Mean Platelet Vol. 9.8 fl (6.2-12.0); Monocyte# 0.35 X10^3/uL; Monocyte% 2.9 % (0-10); NRBC Flagged by Analyzer 0 % (0-5); Neutrophil # 10.73 X10^3/uL (2.7-7.7); Neutrophil % 87.3 % (47-70); Platelet Count 254 K/mm3 (150-450); RBC Distribution Width CV 13.1 % (11.6-14.6); RBC Distribution Width SD 40.7 fl (35.1-43.9); Red Blood Count 4.52 M/mm3 (4.2-5.4); White Blood Count 12.3 K/mm3 (4.4-11.0)
[2024-06-25 09:34] LABS: Anion Gap 4 (5-15); BUN 10 mg/dL (7-18); BUN/Creat Ratio 12.8 RATIO (10-20); Calcium,Total 8.9 mg/dL (8.5-10.1); Chloride 112 mmol/L (98-107); Creatinine, Serum 0.78 mg/dL (0.55-1.02); EST Glomerular Filtration Rate 97 mL/min (>60); Est Glom Filt Rate - Afr Amer 117 mL/min (>60); Estimated Creatinine Clearance 93.58 ml/min; Glucose 120 mg/dL (74-106); Potassium 3.5 mmol/L (3.5-5.1); Sodium Level 138 mmol/L (136-145)
[2024-06-25 10:37] VITALS: BP 122/78; PULSE 88; RESP 20; TEMP 36.1; O2SAT 100
== END 2024-06-25 10:38 | disposition home or self-care (01) ==
PROVIDERS: Emergency Provider Emergency Medicine; PCP Student in an Organized Health Care Education/Training Program; Visit Provider Emergency Medicine
DX: R11.15 Cyclical vomiting syndrome unrelated to migraine (principal); F32.2 Major depressive disorder, single episode, severe without psychotic features; F41.0 Panic disorder [episodic paroxysmal anxiety]; F41.1 Generalized anxiety disorder; F17.290 Nicotine dependence, other tobacco product, uncomplicated; Z79.899 Other long term (current) drug therapy
CPT/HCPCS: 80048; 85025; 96372; 96374; 99283; A4216

== ENCOUNTER 2024-10-20 01:49 | Emergency (ER) | payer BC, SELFPAY ==
[2024-10-20 01:49] VITALS: BP 121/66; PULSE 101; RESP 18; TEMP 37.4; O2SAT 99; BMI 19.8
--- NOTE | 2024-10-20 02:44 | EDS_ITS ---
HPI HPI - GI History of Present Illness Chief Complaint: Nausea/Vomiting Informant: patient Narrative Narrative: Patient is a 24 year old with history of anxiety and frequent ER visit for abdominal pain and nausea and vomiting presenting with abdominal pain, nausea, vomiting and concern for influenza. She states her dad had the flu 1 to 2 weeks ago and she is worried that she could have it. She has had some mild congestion this week is been blowing her nose more frequently but denies any cough or sore throat. Denies any fevers. States that around 6 or 7 PM she started having intermittent episodes of vomiting. States she is thrown up 4-5 times. She took Zofran around 8 or 9 PM. She threw up again prior to arrival and came in. She states that she also just was not feeling good today and her stomach was bothering her. She did take Bentyl around noon. Last menstrual period was 3 weeks ago and she is not concerned for . She denies any diarrhea and feels that she is almost need to have a bowel movement but is not. Denies any history of any abdominal surgeries. Has seen GI in the past and had what sounds a gastric emptying study as well as EGD and colonoscopy but she does not know why she gets these episodes. Denies any other complaints at this time. Denies any blood in her stool or her vomit. [facility] Medical History Wears glasses History of steroid therapy Vapes nicotine containing substance Marijuana use Panic disorder Major depressive disorder, single episode, severe without psychosis Generalized anxiety disorder Home Medications ?Medication ?Instructions ?Recorded ?Last Taken ?Type hydroxyzine pamoate 25 mg capsule 25 mg PO TID PRN anx iety #20 caps 05/22/22 Unknown Rx (Vistaril) ondansetron 4 mg disintegrating 4 mg PO Q8H PRN PRN Na usea #10 tabs 05/29/23 Unknown Rx tablet dicyclomine 20 mg tablet 20 mg PO TID PRN abdominal 0 03/13/24 03/27/24 Rx discomfort #30 tabs hydroxyzine HCl 25 mg tablet 25 mg PO TID PRN anxiety #30 tabs 06/25/24 Unknown Rx nitrofurantoin 100 mg PO Q12H 5 days #10 ca ps 10/20/24 Unknown Rx monohydrate/macrocrystals 100 mg capsule (Macrobid) Allergy/AdvReac Type Severity Reaction Status Date / Time No Known Allergies Allergy Verified 10/20/24 01:55 Surgical History Hx of colonoscopy History of esophagogastroduodenoscopy (EGD) Social History Smoking Status: Current every day smoker tobacco type: e-cigarettes substance use type: marijuana ROS ROS ED Constitutional Constitutional ED: Reports sweats; Denies chills or fever(s) ENT ENT ED: Reports rhinorrhea; Denies sore throat Cardiovascular Cardiovascular: Denies chest pain Respiratory/Chest Respiratory/Chest: Denies cough or dyspnea Gastrointestinal Gastrointestinal: Reports abdominal pain, nausea and vomiting; Denies diarrhea Musculoskeletal Musculoskeletal: Denies arthralgias or myalgias Neurologic Neurologic: Denies paresthesias or weakness Psychiatric Psychiatric: Reports anxiety EXAM Physical Exam Const Vital Signs: 10/20/24 01:49 10/20/24 04:00 10/20/24 05:03 Temperature 99.3 F H 98.3 F Temperature Source Oral Pulse Rate 101 H 88 83 Respiratory Rate 18 18 18 Blood Pressure 121/66 H 98/47 L 90/56 L Blood Pressure Mean 84 64 67 Pulse Ox 99 98 97 Oxygen Delivery Method Room Air Room Air Positive well nourished and well developed General Appearance ED: well developed and NAD; Negative for pallor HEENT Reports dry mucous membranes HEENT Narrative: mildly dry mucosal membranes Mouth ED: Yes dry mucous membranes Mouth: dry mucous membranes Eyes PERRL Neck supple Resp normal respiratory effort and clear to auscultation bilaterally Cardio regular rate, regular rhythm and no murmurs GI non-tender and non-distended Auscultation: hyperactive bowel sounds Palpation: soft; Negative for tender or guarding Neuro Sensorium / Orientation: alert Motor Exam: Negative for general weakness Psych mental status grossly normal Mood & Affect: anxious Skin General Skin Exam: Negative for jaundice or pallor MDM MDM MDM Narrative Medical decision making narrative: Patient presents with nausea, vomiting and abdominal pain. Review shows the patient had multiple ER visits for similar presentation in the past. She also she is very anxious. Differential includes cyclic vomiting syndrome, gastritis, viral syndrome, cannabis hyperemesis syndrome, small bowel obstruction, pancreatitis, cholelithiasis/cholecystitis, MAKI, dehydration and electrolyte derangement. Abdomen soft and nontender on my exam. CBC shows mild leukocytosis 11.5 but otherwise CBC is normal. CMP is consistent with some dehydration with a bicarb of 19.2 and elevated anion gap of 16. Bilirubin mildly elevated 1.42 but her AST and ALT are normal. Alkaline phosphatase is normal. Lipase is normal low suspicion for pancreatitis. Urinalysis is consistent with UTI with 50-100 white blood cells and 3+ bacteria. Urine is negative. Patient is given IV fluids and Zofran in the emergency room. On repeat evaluation she is feeling improved and passed the p.o. challenge. She does admit that she has been having some dysuria and frequency. Will treat for urinary tract infection and given first dose of Macrobid in the emergency room. Urine culture sent. Given that her symptoms have improved and she has benign abdominal exam I do not think she requires CT imaging of her abdomen at this time. She does not have any flank pain I do not think this is pyelonephritis. Will be discharged home. She states that she has plenty of Zofran at home and does not need a prescription for it. Is given return precautions. Lab Data Attestation: I reviewed the patient's lab results. Labs: Laboratory Results - last 24 hr 10/20/24 10/20/24 02:17 02:50 WBC 11.5 H RBC 4.31 Hgb 13.6 Hct 38.3 MCV 88.9 MCH 31.6 MCHC 35.5 RDW Std Deviation 41.1 RDW Coeff of Mario 12.5 Plt Count 242 MPV 11.3 Immature Gran % (Auto) 0.300 Neut % (Auto) 93.1 H Lymph % (Auto) 4.2 L [place] % (Auto) 2.2 Eos % (Auto) 0.0 Baso % (Auto) 0.2 Absolute Neuts (auto) 10.7 H Absolute Lymphs (auto) 0.48 L Nucleated RBC % 0 Sodium 136 Potassium 3.5 Chloride 101 Carbon Dioxide 19.2 L Anion Gap 16 H BUN 15 Creatinine 0.71 Estim Creat Clear Calc 95.91 Est GFR (MDRD) Non-Af 122 BUN/Creatinine Ratio 20.6 H Glucose 101 H Calcium 9.2 Total Bilirubin 1.42 H AST 21 ALT 8 Alkaline Phosphatase 93 Total Protein 7.2 Albumin 4.4 Globulin 2.8 Albumin/Globulin Ratio 1.6 Lipase 21 Urine Color Yellow Urine Clarity Sl. Cloudy Urine pH 6.0 Ur Specific [place] 1.025 Urine Protein 30 H Urine Glucose (UA) Normal Urine Ketones 150 A* Urine Occult Blood Negative Urine Nitrite Negative Urine Bilirubin 1 H Urine Urobilinogen 1 H Ur Leukocyte Esterase 500 H Urine RBC 0 SEEN Urine WBC 50-100 SEEN Ur Squamous Epith Cells 10-25 SEEN Urine Bacteria 3+ Urine Mucus 3+ Urine Test Negative Discharge Plan Triage Chief Complaint: Nausea/Vomiting ED Provider: Fay De Los Santos Dx/Rx/DC Orders Clinical Impression: Abdominal pain of unknown etiology, Nausea & vomiting, UTI (urinary tract infection) Instructions: ED Abdominal Pain Unkn Cause Fem, ED Cystitis Female Adult, ED Vomiting (Adult) Prescriptions: New nitrofurantoin monohyd/m-cryst [Macrobid] 100 mg capsule 100 mg PO Q12H 5 Days Qty: 10 0RF Rx Instructions: must administer with a meal/food No Action dicyclomine 20 mg tablet 20 mg PO TID PRN (Reason: abdominal discomfort) Qty: 30 3RF hydroxyzine pamoate [Vistaril] 25 mg capsule 25 mg PO TID PRN (Reason: anxiety) Qty: 20 0RF ondansetron 4 mg tablet,disintegrating 4 mg PO Q8H PRN PRN (Reason: Nausea) Qty: 10 0RF hydroxyzine HCl 25 mg tablet 25 mg PO TID PRN (Reason: anxiety) Qty: 30 0RF Primary Care Provider: Wilfred Nova Referrals: Wilfred Nova DO [Primary Care Provider] - Activity Restrictions/Additional Instructions: Push fluids at home. Take Zofran at home as needed. Follow-up with your prior care doctor and GI. You do have a urinary tract infection and a urine culture was sent. Will contact you within 48 hours if you require a different antibiotic based on your urine culture. Print Language: Turkish Disposition Disposition: Home, Self Care Discharge Date/Time: 10/20/24 05:08
[2024-10-20 02:49] LABS: Absolute Lymphocyte Count 0.48 X10^3/uL (0.83-4.51); Absolute Neutrophil Count 10.7 X10^3/uL (2.0-7.7); Basophil# 0.02 X10^3/uL; Basophil% 0.2 % (0-1); Hematocrit 38.3 % (37-47); Hemoglobin 13.6 g/dL (12.0-15.0); Lymphocyte # 0.48 X10^3/ul (0.83-4.51); Lymphocyte % 4.2 % (19-41); Mean Corp Hgb Conc 35.5 g/dL (32-36); Mean Corpuscular Hgb 31.6 pg (27.0-32.0); Mean Corpuscular Volume 88.9 fL (81-99); Mean Platelet Vol. 11.3 fl (6.2-12.0); Monocyte# 0.25 X10^3/uL; Monocyte% 2.2 % (0-10); NRBC Flagged by Analyzer 0 % (0-5); Neutrophil # 10.74 X10^3/uL (2.7-7.7); Neutrophil % 93.1 % (47-70); POSITIVE DIFFERENTIAL YES; Platelet Count 242 K/mm3 (150-450); RBC Distribution Width CV 12.5 % (11.6-14.6); RBC Distribution Width SD 41.1 fl (35.1-43.9); Red Blood Count 4.31 M/mm3 (4.2-5.4); White Blood Count 11.5 K/mm3 (4.4-11.0)
[2024-10-20] MEDS: Ondansetron 4 MG/2 ML Vial IV (02:53)
[2024-10-20] MEDS: 0.9% Normal Saline (1000mL) 1,000 ML 999 ML IV (02:53)
[2024-10-20 03:03] LABS: Color, Urine Yellow (Yellow); Glucose, Dipstick Normal (Normal); Leukocyte Esterase-Dipstick 500 /ul (Negative); Nitrite-Dipstick Negative (Negative); Occult Blood-Urine Negative /ul (Negative); Protein-Dipstick 30 mg/dl (Negative); Specific Gravity, Urine 1.025 (1.002-1.030); Urine Clarity Sl. Cloudy (Clear); Urine Urobilinogen 1 mg/dl (Normal)
[2024-10-20 03:13] LABS: Lipase 21 U/L (13-75)
[2024-10-20 03:17] LABS: ALB/GLOB Ratio 1.6 RATIO (0.9-2.4); AST(SGOT) 21 U/L (<=31); Alanine Aminotransfer ALT/SGPT 8 U/L (<=34); Albumin, Serum 4.4 g/dL (3.5-5.0); Alkaline Phosphatase 93 U/L (35-104); Anion Gap 16 (5-15); BUN 15 mg/dL (4-19); BUN/Creat Ratio 20.6 RATIO (10-20); Calcium,Total 9.2 mg/dL (7.6-11.0); Carbon Dioxide 19.2 mmol/L (21.0-32.0); Chloride 101 mmol/L (98-108); Creatinine, Serum 0.71 mg/dL (0.70-1.20); EST Glomerular Filtration Rate 122 (>60); Estimated Creatinine Clearance 95.91 ml/min (50-250); Globulin 2.8 g/dL (2.2-4.2); Glucose 101 mg/dL (70-99); Potassium 3.5 mmol/L (3.3-5.1); Protein, Total 7.2 g/dL (5.9-8.4); Sodium Level 136 mmol/L (133-145); Total Bilirubin 1.42 mg/dL (0.00-1.30)
[2024-10-20 03:48] LABS: Urine Bilirubin Dipstick 1 mg/dL (Negative)
[2024-10-20 03:49] LABS: Bacteria 3+ /hpf (None Seen); Internal QC Validated? YES +Cl - CLEAR BKGD; Mucous, Urine 3+ /hpf (<or=2+); Pregnancy, Urine Negative Negative; Red Blood Cells-Urine 0 SEEN /hpf (0-5); Squamous Epithelial Cells - UA 10-25 SEEN /hpf (5-10); White Blood Cells 50-100 SEEN /hpf (0-5)
[2024-10-20 03:50] LABS: Ketone-Dipstick 150 mg/dl (Negative)
[2024-10-20 04:00] VITALS: BP 98/47; PULSE 88; RESP 18; O2SAT 98
[2024-10-20 05:03] VITALS: BP 90/56; PULSE 83; RESP 18; TEMP 36.8; O2SAT 97
[2024-10-20] MEDS: Nitrofurantoin Macrocrystals 100 MG Capsule PO (05:07)
== END 2024-10-20 05:08 | disposition home or self-care (01) ==
PROVIDERS: Emergency Provider Emergency Medicine; PCP Student in an Organized Health Care Education/Training Program; Visit Provider Emergency Medicine
DX: N39.0 Urinary tract infection, site not specified (principal); F32.2 Major depressive disorder, single episode, severe without psychotic features; R11.2 Nausea with vomiting, unspecified; R10.9 Unspecified abdominal pain; F41.1 Generalized anxiety disorder; F17.210 Nicotine dependence, cigarettes, uncomplicated; F17.290 Nicotine dependence, other tobacco product, uncomplicated
CPT/HCPCS: 80053; 81001; 81025; 83690; 85025; 87086; 87088; 87631; 96361; 96374; 99283; A4216; J2405

== ENCOUNTER 2025-05-12 06:45 | Emergency (ER) | payer BC, SELFPAY ==
[2025-05-12 06:45] VITALS: BP 125/70; PULSE 69; RESP 16; TEMP 36.6; O2SAT 100; BMI 21.4
--- NOTE | 2025-05-12 07:42 | EX.ED.DYSGE1 ---
HPI History of Present Illness Chief Complaint: Anxiety Informant: patient Onset/Context/Timing Onset: Days Context: Gradual Onset Timing: Intermittent Quality: Cramping Location: Lower abdomen Worsened by: Nothing Relieved by: Nothing Narrative Narrative: Patient presents with anxiety that has been getting progressively worse over the past couple days. Patient states it became worse today. Patient states it has been intermittent. Patient states she has some cramping in her lower abdomen. Patient denies any abnormal vaginal bleeding or discharge. Patient states she is approximately 7 weeks . Patient states she had some nausea and vomiting today. Patient denies any hematemesis or coffee-ground emesis. Patient admits to some subjective chills. Patient denies any diarrhea, melena, or hematochezia. Patient admits to some urinary frequency but denies any dysuria or hematuria. Patient denies any suicidal or homicidal ideations. [facility] Medical History Marijuana use Panic disorder Major depressive disorder, single episode, severe without psychosis Generalized anxiety disorder Home Medications ?Medication ?Instructions ?Recorded ?Last Taken ?Type NK 05/12/25 Unknown History Allergy/AdvReac Type Severity Reaction Status Date / Time No Known Allergies Allergy Verified 05/12/25 06:46 Family History (Updated 05/04/25 @ 11:09 by Ange Tejeda RN) Mother Thyroid disorder Father Asthma COPD (chronic obstructive pulmonary disease) Grandmother Cardiac pacemaker Surgical History Hx of colonoscopy History of esophagogastroduodenoscopy (EGD) Social History adopted: No household members: other details: Mom & step dad number of children: 0 current occupational status: employed current occupation: [employer]ging [employer] current occupational exposures/hazards: No pets and animals: Yes (Not managing litterbox ) pets and animals: cat(s) history of recent travel: Yes (Mar 2025) out of state: Yes out of country: No sexually active: Yes Smoking Status: Former smoker quit date: 04/20/25 second hand exposure: No quit status: quit date established alcohol intake: current alcohol intake frequency: a few times a month details: Not while substance use type: former substance user Date of last use: Apr 20, 2025 well-balanced diet: about half the time caffeine: No eating out: 1-3 times/week during the past year weight has: remained stable what type of physical activity do you participate in: walking frequency: 1-2 times per week duration: < 15 minutes/day dustin/sikh: None seatbelt use: always do you feel safe at home: Yes additional social history: BF: Dav - Assistant Womens Volleyball Coach @ [employer] ROS ROS ED Constitutional Constitutional ED: Reports chills and subjective; Denies fever(s) Eyes Eyes: Denies blurry vision or change in vision ENT ENT ED: Denies rhinorrhea or sore throat Cardiovascular Cardiovascular: Denies chest pain or palpitations Respiratory/Chest Respiratory/Chest: Denies cough or dyspnea Gastrointestinal Gastrointestinal: Reports abdominal pain, nausea and vomiting; Denies diarrhea or melena Genitourinary Genitourinary ED: Reports urinary frequency; Denies dysuria or hematuria Musculoskeletal Musculoskeletal: Denies back pain or neck pain Integumentary Denies abscess or rash Neurologic Neurologic: Denies headache(s) or weakness Psychiatric Psychiatric: Reports anxiety; Denies suicidal ideation or suicidal thoughts Allergic/Immunologic Allergic/Immunologic ED: Denies mouth swelling or urticaria EXAM Physical Exam Const Vital Signs: 05/12/25 06:45 Temperature 97.8 F Temperature Source Oral Pulse Rate 69 Respiratory Rate 16 Blood Pressure 125/70 H Blood Pressure Mean 88 Pulse Ox 100 Positive well nourished and well developed Constitutional Narrative: BMI is 21.4. General Appearance ED: well developed and NAD HEENT Reports moist mucous membranes Neck supple and no JVD Resp normal respiratory effort and clear to auscultation bilaterally Cardio regular rate and regular rhythm GI non-tender and non-distended Palpation: soft Extremity normal to inspection Neuro oriented x3, CN's II-XII intact bilaterally and no sensory deficits noted Sensorium / Orientation: alert Motor Exam: strength 5/5 throughout Psych Mood & Affect: anxious MDM MDM MDM Narrative Medical decision making narrative: Differential diagnosis includes threatened miscarriage, ovarian cyst, urinary tract infection, viral illness, and anxiety. CBC will be obtained to assess for leukocytosis and anemia. Basic metabolic profile will be obtained to assess for electrolyte abnormality and renal function. Serum quantitative hCG will be obtained to assess for . Urinalysis will be obtained to assess for urinary tract infection and hematuria. Lab Data Attestation: I reviewed the patient's lab results. Lab results narrative: CBC was reviewed and was within normal limits. Basic metabolic profile was reviewed and was within normal limits. [place] [id number]. Urinalysis was reviewed. There is no evidence of urinary tract infection or hematuria. Labs: Laboratory Results - last 24 hr 05/12/25 05/12/25 08:25 09:15 WBC 9.6 RBC 3.99 L Hgb 12.8 Hct 35.2 L MCV 88.2 MCH 32.1 H MCHC 36.4 H RDW Std Deviation 39.4 RDW Coeff of Mario 12.1 Plt Count 268 MPV 9.6 Immature Gran % (Auto) 0.300 Neut % (Auto) 78.7 H Lymph % (Auto) 14.5 L [place] % (Auto) 5.4 Eos % (Auto) 0.8 Baso % (Auto) 0.3 Absolute Neuts (auto) 7.5 Absolute Lymphs (auto) 1.38 Nucleated RBC % 0 Sodium 138 Potassium 3.3 Chloride 106 Carbon Dioxide 19.8 L Anion Gap 12 BUN 10 Creatinine 0.59 L Estim Creat Clear Calc 117.29 Est GFR (MDRD) Non-Af 130 BUN/Creatinine Ratio 16.0 Glucose 92 Calcium 8.8 HCG, Quant 64721 H Urine Color Straw Urine Clarity Clear Urine pH 7.0 Ur Specific [place] 1.010 Urine Protein Negative Urine Glucose (UA) Normal Urine Ketones Negative Urine Occult Blood Negative Urine Nitrite Negative Urine Bilirubin Negative Urine Urobilinogen Normal Ur Leukocyte Esterase Negative Urine RBC 0 SEEN Urine WBC 0 SEEN Ur Squamous Epith Cells 0-5 SEEN Urine Bacteria 2+ Urine Mucus 0 SEEN Treatment and Re-Evaluation :: Patient was given IV fluids. Patient was given a dose of Zofran. Patient was advised of her findings. Patient was instructed to follow-up with her primary care physician and [facility] in 5 to 7 days. Patient was instructed to return if worse in any way. Patient understood and was agreeable with the plan. All questions were answered. Discharge Plan Triage Chief Complaint: Anxiety ED Provider: Zafar Marrero Dx/Rx/DC Orders Clinical Impression: Anxiety, Instructions: ED Anxiety Reaction Prescriptions: No Action NK Primary Care Provider: Wilfred Nova Referrals: Wilfred Nova, DO [Primary Care Provider, Medical] - 5-7 Days Print Language: Comoran Disposition Disposition: Home, Self Care
[2025-05-12] MEDS: 0.9% Normal Saline (1000mL) 1,000 ML 1000 ML IV (08:28)
[2025-05-12 08:37] LABS: Hematocrit 35.2 % (37-47); Hemoglobin 12.8 g/dL (12.0-15.0); Immature Granulocytes Count 0.030 X10^3/uL (0.0-0.0); Mean Corp Hgb Conc 36.4 g/dL (32-36); Mean Corpuscular Volume 88.2 fL (81-99); Mean Platelet Vol. 9.6 fl (6.2-12.0); NRBC Flagged by Analyzer 0 % (0-5); Platelet Count 268 K/mm3 (150-450); RBC Distribution Width CV 12.1 % (11.6-14.6); RBC Distribution Width SD 39.4 fl (35.1-43.9); Red Blood Count 3.99 M/mm3 (4.2-5.4); White Blood Count 9.6 K/mm3 (4.4-11.0)
[2025-05-12 09:27] LABS: Mucous, Urine 0 SEEN /hpf (<or=2+); Red Blood Cells-Urine 0 SEEN /hpf (0-5)
[2025-05-12 09:28] LABS: Color, Urine Straw (Yellow); Glucose, Dipstick Normal (Normal); Ketone-Dipstick Negative (Negative); Leukocyte Esterase-Dipstick Negative /ul (Negative); Nitrite-Dipstick Negative (Negative); Occult Blood-Urine Negative /ul (Negative); Protein-Dipstick Negative (Negative); Specific Gravity, Urine 1.010 (1.002-1.030); Urine Bilirubin Dipstick Negative (Negative)
[2025-05-12 09:36] LABS: Anion Gap 12 (5-15); BUN 10 mg/dL (4-19); BUN/Creat Ratio 16.0 RATIO (10-20); Calcium,Total 8.8 mg/dL (7.6-11.0); Carbon Dioxide 19.8 mmol/L (21.0-32.0); Chloride 106 mmol/L (98-108); Estimated Creatinine Clearance 117.29 ml/min (50-250); Glucose 92 mg/dL (70-99); Potassium 3.3 mmol/L (3.3-5.1)
[2025-05-12 09:40] LABS: Squamous Epithelial Cells - UA 0-5 SEEN /hpf (5-10)
[2025-05-12 10:01] LABS: hCG Titer Quant., Serum 23931 mIU/mL (<9 non-preg)
[2025-05-12 10:36] VITALS: BP 107/77; PULSE 62; RESP 20; TEMP 37; O2SAT 99
[2025-05-12 10:37] VITALS: BP 107/77; PULSE 62; RESP 20; TEMP 37; O2SAT 99
--- NOTE | 2025-05-12 21:57 | CM.ED ---
Social Work Patient tearful during her ED visit. SW entered room, introduced self and explained role with [facility]. Patient accepting of visit. Patient stated she recently found out she was and she was fearful of telling her family. Patient states there is alot going on in her home right now as her sister just had a that had drugs found in their system, that children services is involved and patients mother has to sr. payroll manager sister and baby. Patient states she is fearful to add another problem for her mother to deal with. Patient also states that the father of the child does not want her to have the baby and she does not know what she wants to do. Active listening and emotional support provided along with counseling resources. No further needs at this time.
== END 2025-05-12 10:38 | disposition home or self-care (01) ==
PROVIDERS: Emergency Provider Emergency Medicine; PCP Student in an Organized Health Care Education/Training Program; Visit Provider Emergency Medicine
DX: O99.341 Other mental disorders complicating pregnancy, first trimester (principal); F41.1 Generalized anxiety disorder; F41.0 Panic disorder [episodic paroxysmal anxiety]; O99.891 Other specified diseases and conditions complicating pregnancy; R35.0 Frequency of micturition; R10.30 Lower abdominal pain, unspecified; O21.9 Vomiting of pregnancy, unspecified; Z87.891 Personal history of nicotine dependence; Z3A.01 Less than 8 weeks gestation of pregnancy
CPT/HCPCS: 80048; 81001; 84702; 85025; 96361; 96374; 99283; A4216; J2405

== ENCOUNTER 2025-05-13 10:05 | Emergency (ER) | payer BC, SELFPAY ==
[2025-05-13 10:05] VITALS: BP 119/76; PULSE 72; RESP 14; TEMP 37.2; O2SAT 98; BMI 19.4
[2025-05-13] MEDS: 0.9% Normal Saline (1000mL) 1,000 ML 999 ML IV (10:55)
[2025-05-13 10:59] LABS: Hematocrit 35.4 % (37-47); Hemoglobin 13.2 g/dL (12.0-15.0); Immature Granulocytes Count 0.060 X10^3/uL (0.0-0.0); Mean Corp Hgb Conc 37.3 g/dL (32-36); Mean Corpuscular Volume 87.4 fL (81-99); Mean Platelet Vol. 9.7 fl (6.2-12.0); NRBC Flagged by Analyzer 0 % (0-5); POSITIVE DIFFERENTIAL YES; Platelet Count 315 K/mm3 (150-450); RBC Distribution Width CV 12.1 % (11.6-14.6); RBC Distribution Width SD 38.6 fl (35.1-43.9); Red Blood Count 4.05 M/mm3 (4.2-5.4); White Blood Count 14.1 K/mm3 (4.4-11.0)
[2025-05-13 11:18] LABS: Red Blood Cells-Urine 0 SEEN /hpf (0-5)
[2025-05-13 11:26] LABS: Color, Urine Yellow (Yellow); Glucose, Dipstick 50 mg/dl (Normal); Leukocyte Esterase-Dipstick Negative /ul (Negative); Nitrite-Dipstick Negative (Negative); Occult Blood-Urine 10 /ul (Negative); Protein-Dipstick 30 mg/dl (Negative); Specific Gravity, Urine 1.025 (1.002-1.030); Urine Bilirubin Dipstick Negative (Negative)
[2025-05-13 11:29] LABS: Ketone-Dipstick 150 mg/dl (Negative)
[2025-05-13 11:37] LABS: Mucous, Urine 1+ /hpf (<or=2+)
[2025-05-13 11:38] LABS: Squamous Epithelial Cells - UA 0-5 SEEN /hpf (5-10)
--- NOTE | 2025-05-13 11:46 | EX.ED.DYSGE1 ---
HPI History of Present Illness Chief Complaint: Anxiety Informant: patient Narrative Narrative: Patient is a 24-year-old female with history of marijuana use, cyclic vomiting syndrome and anxiety who is approximately 7 weeks (last menstrual period March 25) presenting with increased nausea, vomiting this morning (mostly dry heaves) and stomach pressure. She states it feels like her stomach is twisting up. Has had some urinary frequency but denies any dysuria or hematuria. Denies any vaginal bleeding. Was seen in our ER yesterday for anxiety and nausea. Normally takes hydroxyzine but was told she should not take it in her first trimester. Has an appointment to see her SATELLITE DISH TECHNICIAN and confirm next week through [place]. Notes that she is going to multiple stressors including relationships with the father, home life issues and she just told her mother about the today. No fever or chills reported but has had some sweating. No blood in vomit or stool appreciated. No other complaints or concerns at this time [facility] Medical History Marijuana use Panic disorder Major depressive disorder, single episode, severe without psychosis Generalized anxiety disorder Home Medications ?Medication ?Instructions ?Recorded ?Last Taken ?Type hydroxyzine pamoate 25 mg capsule 25 - 50 mg (1 - 2 x 25 mg) PO TID 05/13/25 Unknown Rx PRN PRN Anxiety #30 CAPSULES ondansetron 4 mg disintegrating 4 mg PO Q8H PRN PRN Nausea #20 tabs 05/13/25 Unknown Rx tablet pyridoxine (vitamin B6) 10 mg 10 mg PO TID PRN nausea and 05/13/25 Unknown Rx tablet vomiting #20 tabs Allergy/AdvReac Type Severity Reaction Status Date / Time No Known Allergies Allergy Verified 05/13/25 10:06 Family History Mother Thyroid disorder Father Asthma COPD (chronic obstructive pulmonary disease) Grandmother Cardiac pacemaker Surgical History Hx of colonoscopy History of esophagogastroduodenoscopy (EGD) Social History adopted: No household members: other details: Mom & step dad number of children: 0 current occupational status: employed 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 current occupational exposures/hazards: No pets and animals: Yes (Not managing litterbox ) pets and animals: cat(s) history of recent travel: Yes (Mar 2025) out of state: Yes out of country: No sexually active: Yes Smoking Status: Former smoker quit date: 04/20/25 second hand exposure: No quit status: quit date established alcohol intake: current alcohol intake frequency: a few times a month details: Not while substance use type: former substance user Date of last use: Apr 20, 2025 well-balanced diet: about half the time caffeine: No eating out: 1-3 times/week during the past year weight has: remained stable what type of physical activity do you participate in: walking frequency: 1-2 times per week duration: < 15 minutes/day dustin/presybeterian: None seatbelt use: always do you feel safe at home: Yes additional social history: BF: [employer] @ [employer] [facility] ROS ED Constitutional Constitutional ED: Denies chills or fever(s) Respiratory/Chest Respiratory/Chest: Denies cough Gastrointestinal Gastrointestinal: Reports abdominal pain, nausea and vomiting; Denies diarrhea or melena Genitourinary Genitourinary ED: Reports urinary frequency; Denies dysuria or hematuria Musculoskeletal Musculoskeletal: Denies arthralgias, back pain or myalgias Integumentary Denies rash Neurologic Neurologic: Reports weakness Psychiatric Psychiatric: Reports anxiety Hematologic/Lymphatic Hematologic/Lymphatic: Denies easy bleeding or easy bruising EXAM Physical Exam Const Vital Signs: 05/13/25 10:05 05/13/25 12:05 Temperature 99 F Temperature Source Temporal Pulse Rate 72 74 Respiratory Rate 14 18 Blood Pressure 119/76 89/60 L Blood Pressure Mean 90 69 Pulse Ox 98 100 Oxygen Delivery Method Room Air Room Air Positive well nourished and well developed Constitutional Narrative: Nontoxic-appearing but uncomfortable General Appearance ED: well developed; Negative for pallor HEENT Reports dry mucous membranes Mouth ED: Yes dry mucous membranes Mouth: dry mucous membranes Eyes PERRL General Eye ED: Negative for pale conjunctiva or scleral icterus Chest Wall inspection of chest normal and palpation of chest normal Resp normal respiratory effort and clear to auscultation bilaterally Cardio regular rhythm and no murmurs Rate: bradycardia GI non-distended Inspection: Negative for abdominal distention Auscultation: normoactive bowel sounds Palpation: soft and tender periumbilical; Negative for guarding or mass Back/Spine no CVA tenderness Extremity normal to inspection Neuro oriented x3 Sensorium / Orientation: alert Motor Exam: general weakness Psych Mood & Affect: anxious and tearful Skin no wounds General Skin Exam: Negative for jaundice or pallor MDM MDM MDM Narrative Medical decision making narrative: Patient evaluated for nausea, vomiting and abdominal pain in early . Does have a history of anxiety and feels that her anxiety is making her abdominal pain and nausea/vomiting worse. Patient was seen and evaluated in our ER yesterday for nausea and anxiety. States that she was feeling better when she left but her symptoms worsened and that she is having worsening nausea and vomiting with abdominal pain now. Differential includes is not limited to ectopic , cannabis hyperemesis syndrome, anxiety, dehydration, pancreatitis, MAKI and hyperemesis gravidarum. Patient is a leukocytosis 14.1 which could be reactive. She is otherwise afebrile. CMP is normal. Quant yesterday was greater than 20,000. Urinalysis obtained today that showed 150 ketones was not consistent with infection. Patient is a positive however she is not having any signs of a threatened miscarriage with pelvic cramping or vaginal bleeding. Patient is given IV fluids and Zofran in the emergency room as well as IV Ativan with improvement of her symptoms. Bedside ultrasound performed by myself shows single intrauterine gestation with gestational sac, pole and visualized cardiac activity. Heart rate is approximately 117 bpm. I do not appreciate any free fluid or masses in the ovaries. On repeat evaluation she is feeling improved. Did speak with her SATELLITE DISH TECHNICIAN, Dr. Woodard. She is comfortable being discharged home and recommends hydroxyzine as well as Zofran for her symptoms (states it is safe in early ). Patient was given p.o. challenge in the emergency room. Patient is also given a prescription for Diclegis just ingredients (B6/Unisom). Given return precautions. Evaluated by social work in emergency room. Discharged home in stable and improved condition. Mother is at the bedside and is also agreeable this plan of care. Lab Data Attestation: I reviewed the patient's lab results. Labs: Laboratory Results - last 24 hr 05/13/25 05/13/25 10:45 11:00 WBC 14.1 H RBC 4.05 L Hgb 13.2 Hct 35.4 L MCV 87.4 MCH 32.6 H MCHC 37.3 H RDW Std Deviation 38.6 RDW Coeff of Mario 12.1 Plt Count 315 MPV 9.7 Immature Gran % (Auto) 0.400 Neut % (Auto) 94.4 H Lymph % (Auto) 4.0 L Will % (Auto) 1.1 Eos % (Auto) 0.0 Baso % (Auto) 0.1 Absolute Neuts (auto) 13.3 H Absolute Lymphs (auto) 0.56 L Nucleated RBC % 0 Sodium 139 Potassium 3.5 Chloride 106 Carbon Dioxide 18.0 L Anion Gap 15 BUN 9 Creatinine 0.63 L Estim Creat Clear Calc 108.97 Est GFR (MDRD) Non-Af 128 BUN/Creatinine Ratio 14.3 Glucose 117 H Calcium 9.4 Total Bilirubin 0.71 AST 19 ALT 12 Alkaline Phosphatase 80 Total Protein 7.3 Albumin 4.7 Globulin 2.6 Albumin/Globulin Ratio 1.8 Lipase 23 Urine Color Yellow Urine Clarity Sl. Cloudy Urine pH 6.0 Ur Specific [place] 1.025 Urine Protein 30 H Urine Glucose (UA) 50 H Urine Ketones 150 A* Urine Occult Blood 10 H Urine Nitrite Negative Urine Bilirubin Negative Urine Urobilinogen Normal Ur Leukocyte Esterase Negative Urine RBC 0 SEEN Urine WBC 0 SEEN Ur Squamous Epith Cells 0-5 SEEN Urine Bacteria 1+ Urine Mucus 1+ Blood Type A POSITIVE Discharge Plan Triage Chief Complaint: Anxiety ED Provider: Fay De Los Santos Dx/Rx/DC Orders Clinical Impression: , Nausea and vomiting in prior to 22 weeks gestation, Dehydration, Anxiety Instructions: ED Anxiety Reaction, ED Dehydration (Adult), ED Prescriptions: New ondansetron 4 mg tablet,disintegrating 4 mg PO Q8H PRN PRN (Reason: Nausea) Qty: 20 0RF hydroxyzine pamoate 25 mg capsule 25 - 50 mg PO TID PRN PRN (Reason: Anxiety) Qty: 30 0RF pyridoxine (vitamin B6) 10 mg tablet 10 mg PO TID PRN (Reason: nausea and vomiting) Qty: 20 0RF Rx Instructions: Take with Unisom (doxylamine) for morning sickness Primary Care Provider: Wilfred Nova Referrals: Wilfred Nova DO [Primary Care Provider, Medical] Raquel Parra DO [Med Staff - Active Staff, Obstetrics-Gynecology (OBGYN)] Activity Restrictions/Additional Instructions: Try to eat small frequent meals and push fluids at home. You been given a prescription for hydroxyzine as well as Zofran (I confirmed with your SATELLITE DISH TECHNICIAN that these are safe for you to take). If you feel that you are not getting adequate relief with this please call your SATELLITE DISH TECHNICIAN office and talk to them about home health visit?they can arrange IV fluids at home and even a Zofran pump if you need it. Return if you have progression, worsening your symptoms or further concerns I have also prescribed vitamin B6 (pyridoxine 10 mg) which is also available [id number]. You may take this with [id number] Unisom (doxylamine) 1 tablet every 8 hours as needed for nausea and vomiting as well. This is safe in Print Language: Mongolian Disposition Disposition: Home, Self Care Discharge Date/Time: 05/13/25 13:53
[2025-05-13 11:47] LABS: AST(SGOT) 19 U/L (<=31); Alanine Aminotransfer ALT/SGPT 12 U/L (<=34); Albumin, Serum 4.7 g/dL (3.5-5.0); Alkaline Phosphatase 80 U/L (35-104); Anion Gap 15 (5-15); BUN 9 mg/dL (4-19); BUN/Creat Ratio 14.3 RATIO (10-20); Calcium,Total 9.4 mg/dL (7.6-11.0); Carbon Dioxide 18.0 mmol/L (21.0-32.0); Chloride 106 mmol/L (98-108); Estimated Creatinine Clearance 108.97 ml/min (50-250); Globulin 2.6 g/dL (2.2-4.2); Glucose 117 mg/dL (70-99); Lipase 23 U/L (13-75); Potassium 3.5 mmol/L (3.3-5.1)
[2025-05-13 12:05] VITALS: BP 89/60; PULSE 74; RESP 18; O2SAT 100
--- NOTE | 2025-05-13 17:18 | CM.ED ---
Social Work Patient stated that she was having increased anxiety this morning and was not able to calm self down. Patient states she told her mother about being and they had a good conversation however patient was not feeling well physically this morning and she believes that attributed to her increase in anxiety. Mom in room and states she took patient for a drive and had her do breathing exercises but was unsuccessful in getting her to relax. Patient reports to feeling much better after getting medication. Patient had been provided counseling services yesterday and still had the list. No other needs identified at this time. Neha Sloan, RATE SETTER, FLOOR HELPER
== END 2025-05-13 13:53 | disposition home or self-care (01) ==
PROVIDERS: Emergency Provider Emergency Medicine; PCP Student in an Organized Health Care Education/Training Program; Visit Provider Emergency Medicine
DX: O21.9 Vomiting of pregnancy, unspecified (principal); O99.281 Endocrine, nutritional and metabolic diseases complicating pregnancy, first trimester; E86.0 Dehydration; O99.341 Other mental disorders complicating pregnancy, first trimester; F41.1 Generalized anxiety disorder; F41.0 Panic disorder [episodic paroxysmal anxiety]; O99.891 Other specified diseases and conditions complicating pregnancy; R10.30 Lower abdominal pain, unspecified; Z3A.01 Less than 8 weeks gestation of pregnancy; Z87.891 Personal history of nicotine dependence
CPT/HCPCS: 80053; 81001; 83690; 85025; 86900; 86901; 96361; 96374; 96375; 99283; J2405

== ENCOUNTER → 2025-05-21 | Outpatient (CLI) | payer BC, SELFPAY ==
--- OUTSIDE RECORDS SUMMARY | 2025-05-21 15:58 | XMS RPT_ITS | CCD ---
Author Organization 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 Name Role Phone Avtar [place] Wilfred L Primary Care Provider Unavailable Primary Care Provider UnavailSAVAGE Ibanez Attending Unavailable Egan DO Wilfred L Primary Care Provider CHASITY PARIKH Attending Unavailable EGAN WILFRED L Primary Care Unavailable EGAN, WILFRED L Primary Care Unavailable RIK TORRES Attending Unava ilable WILFRED EGAN L Primary Care Unavailable CHASITY PARIKH Attending Unavailable Egan DO Wilfred L Primary Care Provider Sheldon BELL CLEANER.Poncho CHAVIS Unavailable Merrick BELL CLEANER.Olivia CHAVIS Unavailable EGAN, WILFRED L Primary Care Unavailable NATALI ZEPEDA Attending Unavailable PONCHO JAIME Attending Unavailable EGAN WILFRED L Primary Care Unavailable Zafar Marrero Attending Unavailable Egan, Wilfred Primary Care Unavailable Fay De Los Santos Attending Unavailable Egan, Wilfred Primary Care Unavailable Ignacio Murphy Attending Unavailable Egan, Wilfred Primary Care Unavailable Kyleigh Joseph Attending Unavailable Kyleigh Joesph Referring Unavailable Egan, Wilfred Primary Care Unavailable Kyleigh Joseph Referring Unavailable Egan, Wilfred Primary Care Unavailable Kyleigh Joseph Attending Unavailable Fernando Sanchez Attending Unavailable Egan, Wilfred Primary Care Unavailable Raina Crowe Attending Unavailable Egan, Wilfred Referring Unavailable Egan, Wilfred Primary Care Unavailable Raina Crowe Attending Unavailable Egan, Wilfred Referring Unavailable Egan, Wilfred Primary Care Unavailable Fay De Los Santos Attending Unavailable Egan, Wilfred Primary Care Unavailable Medications Current Medications Medication Drug Class(es) Dates Sig (Normalized) Sig (Original) dicyclomine hydrochloride 20 mg oral tablet (3 sources) Anticholinergic Start: 02-28-2024 take 1 tablet by mouth three times daily as needed dicyclomine (BENTYL) 20 mg tablet TAKE 1 TABLET BY MOUTH THREE TIMES A DAY NEEDED FOR ABDOMINAL DISCOMFORT 02/28/2024 Active DULoxetine 20 mg delayed release oral capsule (4 sources) Serotonin and Norepinephrine Reuptake Inhibitor Start: 01-17-2022 End: 10-22-2022 take 1 capsule by mouth once daily DULoxetine (CYMBALTA) 20 mg capsule Take 1 capsule by mouth once daily. 30 capsule 1 01/17/2022 10/22/2022 Discontinued Comment on above: Take 1 capsule by mo [facility] once daily. fluconazole 150 mg oral tablet (1 source) Azole Antifungal Start: 02-02-2025 End: 02-02-2025 take 1 tablet by mouth once fluconazole (DIFLUCAN) 150 mg tablet Take 1 tablet by mouth one time only for 1 dose. 1 tablet 02/02/2025 02/02/2025 Active hydrOXYzine pamoate 25 mg oral capsule (3 sources) Antihistamine Start: 02-28-2024 take 1 capsule by mouth every eight hours as needed hydrOXYzine pamoate (VISTARIL) 25 mg capsule Take 25 mg by mouth three times a day as needed. 02/28/2024 Active metroNIDAZOLE 500 mg oral tablet (1 source) Nitroimidazole Antimicrobial Start: 02-03-2025 End: 02-10-2025 take 1 tablet by mouth twice daily metroNIDAZOLE (FLAGYL) 500 mg tablet Take 1 tablet by mouth two times a day for 7 days. 14 tablet 02/03/2025 02/10/2025 Active ondansetron 4 mg disintegrating oral tablet (8 sources) Serotonin-3 Receptor Antagonist Start: 10-10-2020 End: 01-17-2022 take 1 tablet by mouth every eight hours as needed ondansetron orally disintegrating (ZOFRAN ODT) 4 mg disintegrating tablet Take 1 tablet by mouth every 8 hours as needed. 20 tablet 3 01/17/2022 Active Comment on above: Take 1 tablet by [facility] every 8 hours as needed. sertraline 50 mg oral tablet (4 sources) Serotonin Reuptake Inhibitor Start: 03-04-2024 End: 04-17-2024 take 0.5 tablet by mouth once daily, then take 1 tablet by mouth once daily sertraline (ZOLOFT) 50 mg tablet Indications: Anxiety , Abdominal cramping , Nausea and vomiting, unspecified vomiting type Take 0.5 tablets by mouth once daily for 14 days, THEN 1 tablet once daily. 37 tablet 03/04/2024 Active Start: 09-20-2020 End: 01-17-2022 take 1 tablet by mouth once daily sertraline (ZOLOFT) 50 mg tablet Take 1 tablet by mouth daily. 90 tablet 1 09/20/2020 01/17/2022 Discontinued Comment on above: Take 1 tablet by michael th daily. Completed/Discontinued Medications Medication Drug Class(es) Dates [...] as needed. Take 1 tablet by michael twice daily as needed for up to 30 days. prochlorperazine 5 mg oral tablet (1 source) Phenothiazine Start: 2 End: prochlorperazine (COMPAZINE) tablet 5 mg Start: 05-20-2022 End: 05-20-2022 prochlorperazine (COMPAZINE) tablet 5 mg Problems Active Problems Problem Classification Problem Date Documented Date Episodic/Chronic Anxiety disorders (14 sources) Anxiety; Translations: [Anxiety disorder, unspecified] Onset: 05-20-2022 Chronic Gastritis and duodenitis (1 source) Chronic superficial gastritis; Translations: [Chronic superficial gastritis without bleeding] Chronic Genitourinary symptoms and ill-defined conditions (2 sources) Blood in urine; Translations: [Hematuria, unspecified] Onset: 02-02-2025 02-02-2025 Episodic Immunizations and screening for infectious disease (2 sources) Patient encounter status; Translations: [Encounter for screening for infections with a predominantly sexual mode of transmission] Onset: 02-02-2025 02-02-2025 Episodic Mood disorders (1 source) Major depressive disorder; Translations: [Major depressive disorder, single episode, unspecified] Chronic Other female genital disorders (1 source) Vaginal discomfort; Translations: [Unspecified condition associated with female genital organs and menstrual cycle] 02-02-2025 Episodic Other female genital disorders (1 source) Unspecified condition associated with female genital organs and menstrual cycle; Translations: [Vaginal discomfort] Onset: 02-02-2025 Episodic Regional enteritis and ulcerative colitis (1 source) Crohn's disease of small intestine without complications; Translations: [Crohn's disease of small intestine without complications] Onset: 05-29-2024 Chronic Residual codes; unclassified (1 source) Did not attend; Translations: [Procedure and treatment not carried out because of patient's decision for other reasons] Episodic Substance-related disorders (2 sources) Cannabis use, unspecified, uncomplicated; Translations: [Cannabis use, unspecified, uncomplicated] Onset: 05-15-2023 Episodic Thyroid disorders (5 sources) Goiter; 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-2022 Chronic Unclassified (1 source) Cyclical vomiting syndrome unrelated to migraine; Translations: [Cyclical vomiting syndrome unrelated to migraine] Onset: 06-23-2024 Past or Other Problems Problem Classification Problem Date Documented Da te Episodic/Chronic Abdominal pain (5 sources) Lower abdominal pain; Translations: [Lower abdominal pain, unspecified] Onset: 12-26-2022 Episodic Fluid and electrolyte disorders (2 sources) Hypokalemia; Translations: [Hypokalemia] Onset: 12-28-2022 Episodic Nausea and vomiting (6 sources) Nausea with vomiting, unspecified; Translations: [Vomiting, unspecified] Onset: 12-28-2022 Episodic Results Test Name Value Interpretation Reference Range [facility] [id number] 05-13-2025 ABO and Rh group Nom (Bld) Blood group A Rh(D) positive Normal [facility] Comment on above: Performed By: #### L 100.0100, L500.4050, L501.2450 #### [facility] [address] [place], [address] CBC W/Diff, Automatedon 04-20 Absolute Lymph 0.56 X10 3/uL Low 0.83-4.51 [facility] Comment on above: Performed By: #### L 100.0100, L500.4050, L501.2450 #### [facility] [address] [place], [address] Absolute Neut 13.3 X10 3/uL High 2.0-7.7 [facility] Comment on above: Performed By: #### L 100.0100, L500.4050, L501.2450 #### [facility] [address] [place], [address] Basophils/100 WBC (Bld) 0.1 % Normal 0-1 [facility] Comment on above: Performed By: #### L 100.0100, L500.4050, [id number] #### [facility] [address] [place], [address] Eosinophils/100 WBC (Bld) 0.0 % Normal 0-5 [facility] Comment on above: Performed By: #### L 100.0100, L500.4050, [id number] #### [facility] [address] [place], [address] Erythrocyte distribution width (RBC) [Ratio] 12.1 % Normal 11.6-14.6 [facility] Comment on above: Performed By: #### L 100.0100, L500.4050, L501.2450 #### [facility] [address] [place], [address] Hematocrit (Bld) [Volume fraction] 35.4 % Low 37-47 [facility] Comment on above: Performed By: #### L 100.0100, L500.4050, [id number] #### [facility] [address] [place], [address] Hemoglobin (Bld) [Mass/Vol] 13.2 g/dL Normal 12.0-15.0 [facility] Comment on above: Performed By: #### L 100.0100, L500.4050, L501.2450 #### [facility] [address] [place], [address] IG% 0.400 Normal 0.0-0.9 [facility] Comment on above: Result Comment: IG% - Immature Granulocytes (promyelocytes, myelocytes and metamyelocytes) > 1% indicates that a LEFT SHIFT is Present. Performed By: #### L 100.0100, L500.4050, L501.2450 #### [facility] [address] [place], [address] Lymphocytes/100 WBC (Bld) 4.0 % Low 19-41 [facility] Comment on above: Performed By: #### L 100.0100, L500.4050, [id number] #### [facility] [address] [place], [address] MCH (RBC) [Entitic mass] 32.6 pg High 27.0-32.0 [facility] Comment on above: Performed By: #### L 100.0100, L500.4050, L501.2450 #### [facility] [address] [place], [address] MCHC (RBC) [Mass/Vol] 37.3 g/dL High 32-36 [facility] Comment on above: Performed By: #### L 100.0100, L500.4050, L501.2450 #### [facility] [address] [place], [address] MCV (RBC) [Entitic vol] 87.4 fL Normal 81-99 [facility] Comment on above: Performed By: #### L 100.0100, L500.4050, [id number] #### [facility] [address] [place], [address] Monocytes/100 WBC (Bld) 1.1 % Normal 0-10 [facility] Comment on above: Performed By: #### L 100.0100, L500.4050, [id number] #### [facility] [address] [place], [address] Neutrophils/100 WBC (Bld) 94.4 % High 47-70 [facility] Comment on above: Performed By: #### L 100.0100, L500.4050, L501.2450 #### [facility] [address] [place], [address] Nucleated RBC (Bld) [#/Vol] 0 10*3/uL Normal 0-5 [facility] Comment on above: Performed By: #### L 100.0100, L500.4050, L501.2450 #### [facility] [address] [place], [address] Platelet mean volume (Bld) [Entitic vol] 9.7 fL Normal 6.2-12.0 [facility] Comment on above: Performed By: #### L 100.0100, L500.4050, L501.2450 #### [facility] [address] [place], [address] Platelets (Bld) [#/Vol] 315 10*3/uL Normal 150-450 [facility] Comment on above: Performed By: #### L 100.0100, L500.4050, L501.2450 #### [facility] [address] [place], [address] RBC (Bld) [#/Vol] 4.05 10*6/uL Low 4.2-5.4 [facility] Comment on above: Performed By: #### L 100.0100, L500.4050, L501.2450 #### [facility] [address] [place], [address] RDW SD 38.6 fl Normal 35.1-43.9 [facility] Comment on above: Performed By: #### L 100.0100, L500.4050, L501.2450 #### [facility] [address] [place], [address] WBC (Bld) [#/Vol] 14.1 10*3/uL High 4.4-11.0 [facility] Comment on above: Performed By: #### L 100.0100, L500.4050, L501.2450 #### [facility] [address] [place], [address] Comprehensive Metabolic Prof ilkira 05-13-2025 Albumin [Mass/Vol] 4.7 g/dL Normal 3.5-5.0 [facility] Comment on above: Performed By: #### L 100.0100, L500.4050, L501.2450 #### [facility] [address] [place], [address] Albumin/Globulin [Mass ratio] 1.8 {ratio} Normal 0.9-2.4 [facility] Comment on above: Performed By: #### L 100.0100, L500.4050, L501.2450 #### [facility] [address] [place], [address] ALK PHOS 80 U/L Normal 35-104 [facility] Comment on above: Performed By: #### L 100.0100, L500.4050, [id number] #### [facility] [address] [place], [address] ALT [Catalytic activity/Vol] 12 U/L Normal <=34 [facility] Comment on above: Performed By: #### L 100.0100, L500.4050, L501.2450 #### [facility] [address] [place], [address] AST [Catalytic activity/Vol] 19 U/L Normal <=31 [facility] Comment on above: Performed By: #### L 100.0100, L500.4050, L501.2450 #### [facility] [address] [place], [address] Bilirubin [Mass/Vol] 0.71 mg/dL Normal 0.00-1.30 [facility] Comment on above: Performed By: #### L 100.0100, L500.4050, L501.2450 #### [facility] [address] [place], [address] BUN/CRE 14.3 RATIO Normal 10-20 [facility] Comment on above: Performed By: #### L 100.0100, L500.4050, L501.2450 #### [facility] [address] [place], [address] Calcium [Mass/Vol] 9.4 mg/dL Normal 7.6-11.0 [facility] Comment on above: Performed By: #### L 100.0100, L500.4050, L501.2450 #### [facility] [address] [place], [address] Chloride [Moles/Vol] 106 mmol/L Normal 98-108 [facility] Comment on above: Performed By: #### L 100.0100, L500.4050, L501.2450 #### [facility] [address] [place], [address] CO2 [Moles/Vol] 18.0 mmol/L Low 21.0-32.0 [facility] Comment on above: Performed By: #### L 100.0100, L500.4050, L501.2450 #### [facility] [address] [place], [address] Creatinine [Mass/Vol] 0.63 mg/dL Low 0.70-1.20 [facility] Comment on above: Performed By: #### L 100.0100, L500.4050, L501.2450 #### [facility] [address] [place], [address] ECRCL 108.97 ml/min Normal 50-250 [facility] Comment on above: Performed By: #### L 100.0100, L500.4050, L501.2450 #### [facility] [address] [place], [address] GAP 15 Normal 5-15 [facility] Comment on above: Performed By: #### L 100.0100, L500.4050, L501.2450 #### [facility] [address] [place], [address] GFR/1.73 sq M.predicted among non-blacks MDRD (S/P/Bld) [Vol rate/Area] 128 mL/min/{1.73_m2} Normal >60 [facility] Comment on above: Result Comment: mL/m in/1.73m2 CKD-EPI Creatinine Equation (2020) Performed By: #### L 100.0100, L500.4050, L501.2450 #### [facility] [address] [place], [address] Globulin (S) [Mass/Vol] 2.6 g/dL Normal 2.2-4.2 [facility] Comment on above: Performed By: #### L 100.0100, L500.4050, L501.2450 #### [facility] [address] [place], [address] Glucose [Mass/Vol] 117 mg/dL High 70-99 [facility] Comment on above: Performed By: #### L 100.0100, L500.4050, L501.2450 #### [facility] [address] [place], [address] Potassium [Moles/Vol] 3.5 mmol/L Normal 3.3-5.1 [facility] Comment on above: Performed By: #### L 100.0100, L500.4050, L501.2450 #### [facility] [address] [place], [address] Sodium [Moles/Vol] 139 mmol/L Normal 133-145 [facility] Comment on above: Performed By: #### L 100.0100, L500.4050, L501.2450 #### [facility] [address] [place], [address] T PROT 7.3 g/dL Normal 5.9-8.4 [facility] Comment on above: Performed By: #### L 100.0100, L500.4050, L501.2450 #### [facility] [address] [place], [address] Urea nitrogen [Mass/Vol] 9 mg/dL Normal 4-19 [facility] Comment on above: Performed By: #### L 100.0100, L500.4050, L501.2450 #### [facility] [address] [place], [address] Emergency Department Summary on 05-13-2025 Emergency Department Summary [facility] Medical Records Department [address] [place] [address] Emergency Department Summary 05/13/25 MR#: [id number] Acct: [id number] Name: GLORIA NETTLES TOBIAS Rep #: [id number] : 2000 24 From: Fay De Los Santos DO PCP: Dr. Wilfred Egan DO Status:DEP ER Location: ED HPI History of Present Illness Chief Complaint: Anxiety Informant: patient Narrative Narrative: Patient is a 24-year-old female with history of marijuana use, cyclic vomiting syndrome and anxiety who is approximately 7 weeks (last menstrual period March 25) presenting with increased nausea, vomiting this morning (mostly dry heaves) and stomach pressure. She states it feels like her stomach is twisting up. Has had some urinary frequency but denies any dysuria or hematuria. Denies any vaginal bleeding. Was seen in our ER yesterday for anxiety and nausea. Normally takes hydroxyzine but was told she should not take it in her first trimester. 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 Notes that she is going to multiple stressors including relationships with the father, home life issues and she just told her mother about the today. No fever or chills reported but has had some sweating. No blood in vomit or stool appreciated. No other complaints or concerns at this time [facility] Medical History Marijuana use Panic disorder Major depressive disorder, single episode, severe without psychosis Generalized anxiety disorder Home Medications ???Medication ???Instructions ???Recorded ???Last Taken ???Type hydroxyzine pamoate 25 mg capsule 25 - 50 mg (1 - 2 x 25 mg) PO TID 05/13/25 Unknown Rx PRN PRN Anxiety #30 CAPSULES ondansetron 4 mg disintegrating 4 mg PO Q8H PRN PRN Nausea #20 tab s 05/13/25 Unknown Rx tablet pyridoxine (vitamin B6) 10 mg 10 mg PO TID PRN nausea and Unknown Rx tablet vomiting #20 tabs Allergy/AdvReac Type Severity Reaction Status Date / Time No Known Allergies Allergy Verified 05/13/25 10:06 Family History Mother Thyroid disorder Father Asthma COPD (chronic obstructive pulmonary disease) Grandmother Cardiac pacemaker Surgical History Hx of colonoscopy History of esophagogastroduodenoscopy (EGD) Social History adopted: No household members: other details: Mom step dad number of children: 0 current occupational status: employed current occupation: [employer] current occupational exposures/hazards: No pets and animals: Yes (Not managing litterbox ) pets and animals: cat(s) history of recent travel: Yes (Mar 2025) out of state: Yes out of country: No sexually active: Yes Smoking Status: Former smoker quit date: 04/20/25 second hand exposure: No quit status: quit date established alcohol intake: current alcohol intake frequency: a few times a month details: Not while substance use type: former substance user Date of last use: Apr 20, 2025 well-balanced diet: about half the time caffeine: No eating out: 1-3 times/week during the past year weight has: remained stable what type of physical activity do you participate in: walking frequency: 1-2 times per week duration: < 15 minutes/day dustin/mormon: None seatbelt use: always do you feel safe at home: Yes additional social history: BF: [employer] @ [employer] ROS ROS ED Constitutional Constitutional ED: Denies chills or fever(s) Respiratory/Chest Respiratory/Chest: Denies cough Gastrointestinal Gastrointestinal: Reports abdominal pain, nausea and vomiting; Denies diarrhea or melena Genitourinary Genitourinary ED: Reports urinary frequency; Denies dysuria or hematuria Musculoskeletal Musculoskeletal: Denies arthralgias, back pain or myalgias Integumentary Denies rash Neurologic Neurologic: Reports weakness Psychiatric Psychiatric: Reports anxiety Hematologic/Lymphatic Hematologic/Lymphatic: Denies easy bleeding or easy bruising EXAM Physical Exam Const Vital Signs: 05/13/25 10:05 05/13/25 12:05 Temperature 99 F Temperature Source Temporal Pulse Rate 72 74 Respiratory Rate 14 18 Blood Pressure 119/76 89/60 L Blood Pressure Mean 90 69 Pulse Ox 98 100 Oxygen Delivery Method Room Air Room Air Positive well nourished and well developed Constitutional Narrative: Nontoxic-appearing but uncomfortable General Appearance ED: well developed; Negative for pallor HEENT Reports dry mucous membranes Mouth ED: Yes dry mucous membranes Mouth: dry mucous membranes Eyes PERRL (more content not included)... Normal [facility] Lipaseon 05-13-2025 Lipase [Catalytic activity/Vol] 23 U/L Normal 13-75 [facility] Comment on above: Result Comment: Rashaun rodriguez note: LIPASE revised reference range effective 22. New Lipase methodology. Expected to produce lower values than the previous assay method. NEW Reference Range: 13 - 75 U/L Performed By: #### L 100.0100, L500.4050, L501.2450 #### [facility] [address] [place], [address] Urinalysis, Completeon 05-13 EPI,SQUAMOUS 0-5 SEEN Normal 5-10 [facility] Comment on above: Order Comment: CLEAN CATCH Performed By: #### L 500.2500, L100.0100 #### [facility] [address] [place], [address] BACTERIA 1+ /hpf Normal None Seen [facility] Comment on above: Order Comment: CLEAN CATCH Performed By: #### L 500.2500, L100.0100 #### [facility] [address] [place], [address] Mucus Ql (Urine sed) 1+ /hpf Normal [facility] Comment on above: Order Comment: CLEAN CATCH Performed By: #### L 500.2500, L100.0100 #### [facility] [address] [place], [address] RBC 0 SEEN Normal 0-5 [facility] Comment on above: Order Comment: CLEAN CATCH Performed By: #### L 500.2500, L100.0100 #### [facility] [address] [place], [address] WBC 0 SEEN Normal 0-5 [facility] Comment on above: Order Comment: CLEAN CATCH Performed By: #### L 500.2500, L100.0100 #### [facility] [address] [place], [address] Basic Metabolic Profile (BMP )on 05-12-2025 BUN/CRE 16.0 RATIO Normal 10-20 [facility] Comment on above: Performed By: #### L 100.0100, L700.8000, L500.2500 #### [facility] [address] [place], [address] Calcium [Mass/Vol] 8.8 mg/dL Normal 7.6-11.0 [facility] Comment on above: Performed By: #### L 100.0100, L700.8000, L500.2500 #### [facility] [address] [place], [address] Chloride [Moles/Vol] 106 mmol/L Normal 98-108 [facility] Comment on above: Performed By: #### L 100.0100, L700.8000, L500.2500 #### [facility] [address] [place], [address] CO2 [Moles/Vol] 19.8 mmol/L Low 21.0-32.0 [facility] Comment on above: Performed By: #### L 100.0100, L700.8000, L500.2500 #### [facility] [address] [place], [address] Creatinine [Mass/Vol] 0.59 mg/dL Low 0.70-1.20 [facility] Comment on above: Performed By: #### L 100.0100, L700.8000, L500.2500 #### [facility] [address] [place], [address] ECRCL 117.29 ml/min Normal 50-250 [facility] Comment on above: Performed By: #### L 100.0100, L700.8000, L500.2500 #### [facility] [address] [place], [address] GAP 12 Normal 5-15 [facility] Comment on above: Performed By: #### L 100.0100, L700.8000, L500.2500 #### [facility] [address] [place], [address] GFR/1.73 sq M.predicted among non-blacks MDRD (S/P/Bld) [Vol rate/Area] 130 mL/min/{1.73_m2} Normal >60 [facility] Comment on above: Result Comment: mL/m in/1.73m2 CKD-EPI Creatinine Equation (2020) Performed By: #### L 100.0100, L700.8000, L500.2500 #### [facility] [address] [place], [address] Glucose [Mass/Vol] 92 mg/dL Normal 70-99 [facility] Comment on above: Performed By: #### L 100.0100, L700.8000, L500.2500 #### [facility] [address] [place], [address] Potassium [Moles/Vol] 3.3 mmol/L Normal 3.3-5.1 [facility] Comment on above: Performed By: #### L 100.0100, L700.8000, L500.2500 #### [facility] [address] [place], [address] Sodium [Moles/Vol] 138 mmol/L Normal 133-145 [facility] Comment on above: Performed By: #### L 100.0100, L700.8000, L500.2500 #### [facility] [address] [place], [address] Urea nitrogen [Mass/Vol] 10 mg/dL Normal 4-19 [facility] Comment on above: Performed By: #### L 100.0100, L700.8000, L500.2500 #### [facility] [address] [place], [address] CBC W/Diff, Automatedon 09-2 -2024 Absolute Lymph 1.38 X10 3/uL Normal 0.83-4.51 [facility] Comment on above: Performed By: #### L 100.0100, L700.8000, L500.2500 #### [facility] [address] [place], [address] Absolute Neut 7.5 X10 3/uL Normal 2.0-7.7 [facility] Comment on above: Performed By: #### L 100.0100, L700.8000, L500.2500 #### [facility] [address] [place], [address] Basophils/100 WBC (Bld) 0.3 % Normal 0-1 [facility] Comment on above: Performed By: #### L 100.0100, L700.8000, L500.2500 #### [facility] [address] [place], [address] Eosinophils/100 WBC (Bld) 0.8 % Normal 0-5 [facility] Comment on above: Performed By: #### L 100.0100, L700.8000, L500.2500 #### [facility] [address] [place], [address] Erythrocyte distribution width (RBC) [Ratio] 12.1 % Normal 11.6-14.6 [facility] Comment on above: Performed By: #### L 100.0100, L700.8000, L500.2500 #### [facility] [address] [place], [address] Hematocrit (Bld) [Volume fraction] 35.2 % Low 37-47 [facility] Comment on above: Performed By: #### L 100.0100, L700.8000, L500.2500 #### [facility] [address] [place], [address] Hemoglobin (Bld) [Mass/Vol] 12.8 g/dL Normal 12.0-15.0 [facility] Comment on above: Performed By: #### L 100.0100, L700.8000, L500.2500 #### [facility] [address] [place], [address] IG% 0.300 Normal 0.0-0.9 [facility] Comment on above: Result Comment: IG% - Immature Granulocytes (promyelocytes, myelocytes and metamyelocytes) > 1% indicates that a LEFT SHIFT is Present. Performed By: #### L 100.0100, L700.8000, L500.2500 #### [facility] [address] [place], [address] Lymphocytes/100 WBC (Bld) 14.5 % Low 19-41 [facility] Comment on above: Performed By: #### L 100.0100, L700.8000, L500.2500 #### [facility] [address] [place], [address] MCH (RBC) [Entitic mass] 32.1 pg High 27.0-32.0 [facility] Comment on above: Performed By: #### L 100.0100, L700.8000, L500.2500 #### [facility] [address] [place], [address] MCHC (RBC) [Mass/Vol] 36.4 g/dL High 32-36 [facility] Comment on above: Performed By: #### L 100.0100, L700.8000, L500.2500 #### [facility] [address] [place], [address] MCV (RBC) [Entitic vol] 88.2 fL Normal 81-99 [facility] Comment on above: Performed By: #### L 100.0100, L700.8000, L500.2500 #### [facility] [address] [place], [address] Monocytes/100 WBC (Bld) 5.4 % Normal 0-10 [facility] Comment on above: Performed By: #### L 100.0100, L700.8000, L500.2500 #### [facility] [address] [place], [address] Neutrophils/100 WBC (Bld) 78.7 % High 47-70 [facility] Comment on above: Performed By: #### L 100.0100, L700.8000, L500.2500 #### [facility] [address] [place], [address] Nucleated RBC (Bld) [#/Vol] 0 10*3/uL Normal 0-5 [facility] Comment on above: Performed By: #### L 100.0100, L700.8000, L500.2500 #### [facility] [address] [place], [address] Platelet mean volume (Bld) [Entitic vol] 9.6 fL Normal 6.2-12.0 [facility] Comment on above: Performed By: #### L 100.0100, L700.8000, L500.2500 #### [facility] [address] [place], [address] Platelets (Bld) [#/Vol] 268 10*3/uL Normal 150-450 [facility] Comment on above: Performed By: #### L 100.0100, L700.8000, L500.2500 #### [facility] [address] [place], [address] RBC (Bld) [#/Vol] 3.99 10*6/uL Low 4.2-5.4 [facility] Comment on above: Performed By: #### L 100.0100, L700.8000, L500.2500 #### [facility] [address] [place], [address] RDW SD 39.4 fl Normal 35.1-43.9 [facility] Comment on above: Performed By: #### L 100.0100, L700.8000, L500.2500 #### [facility] [address] [place], [address] WBC (Bld) [#/Vol] 9.6 10*3/uL Normal 4.4-11.0 [facility] Comment on above: Performed By: #### L 100.0100, L700.8000, L500.2500 #### [facility] [address] [place], [address] Emergency Department Summary on 05-12-2025 Emergency Department Summary [facility] Medical Records Department [address] [place] [address] Emergency Department Summary 05/12/25 MR#: [id number] Acct: [id number] Name: GLORIA NETTLES TOBIAS Rep #: [id number] : 2000 24 From: Zafar Marrero DO PCP: Dr. Wlifred Egan, DO Status:DEP ER Location: ED HPI History of Present Illness Chief Complaint: Anxiety Informant: patient Onset/Context/Timing Onset: Days Context: Gradual Onset Timing: Intermittent Quality: Cramping Location: Lower abdomen Worsened by: Nothing Relieved by: Nothing Narrative Narrative: Patient presents with anxiety that has been getting progressively worse over the past couple days. Patient states it became worse today. Patient states it has been intermittent. Patient states she has some cramping in her lower abdomen. Patient denies any abnormal vaginal bleeding or discharge. Patient states she is approximately 7 weeks . Patient states she had some nausea and vomiting today. Patient denies any hematemesis or coffee-ground emesis. Patient admits to some subjective chills. Patient denies any diarrhea, melena, or hematochezia. Patient admits to some urinary frequency but denies any dysuria or hematuria. Patient denies any suicidal or homicidal ideations. [facility] Medical History Marijuana use Panic disorder Major depressive disorder, single episode, severe without psychosis Generalized anxiety disorder Home Medications ???Medication ???Instructions ???Recorded ???Last Taken ???Type NK 05/12/25 Unknown History Allergy/AdvReac Type Severity Reaction Status Date / Time No Known Allergies Allergy Verified 05/12/25 06:46 Family History (Updated 05/04/25 @ 11:09 by Ange Tejeda RN) Mother Thyroid disorder Father Asthma COPD (chronic obstructive pulmonary disease) Grandmother Cardiac pacemaker Surgical History Hx of colonoscopy History of esophagogastroduodenoscopy (EGD) Social History adopted: No household members: other details: Mom step dad number of children: 0 current occupational status: employed 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 current occupational exposures/hazards: No pets and animals: Yes (Not managing litterbox ) pets and animals: cat(s) history of recent travel: Yes (Mar 2025) out of state: Yes out of country: No sexually active: Yes Smoking Status: Former smoker quit date: 04/20/25 second hand exposure: No quit status: quit date established alcohol intake: current alcohol intake frequency: a few times a month details: Not while substance use type: former substance user Date of last use: Apr 20, 2025 well-balanced diet: about half the time caffeine: No eating out: 1-3 times/week during the past year weight has: remained stable what type of physical activity do you participate in: walking frequency: 1-2 times per week duration: < 15 minutes/day dustin/mormon: None seatbelt use: always do you feel safe at home: Yes additional social history: BF: Kite Worker @ [employer] ROS ROS ED Constitutional Constitutional ED: Reports chills and subjective; Denies fever(s) Eyes Eyes: Denies blurry vision or change in vision ENT ENT ED: Denies rhinorrhea or sore throat Cardiovascular Cardiovascular: Denies chest pain or palpitations Respiratory/Chest Respiratory/Chest: Denies cough or dyspnea Gastrointestinal Gastrointestinal: Reports abdominal pain, nausea and vomiting; Denies diarrhea or melena Genitourinary Genitourinary ED: Reports urinary frequency; Denies dysuria or hematuria Musculoskeletal Musculoskeletal: Denies back pain or neck pain Integumentary Denies abscess or rash Neurologic Neurologic: Denies headache(s) or weakness Psychiatric Psychiatric: Reports anxiety; Denies suicidal ideation or suicidal thoughts Allergic/Immunologic Allergic/Immunologic ED: Denies mouth swelling or urticaria EXAM Physical Exam Const Vital Signs: 05/12/25 06:45 Temperature 97.8 F Temperature Source Oral Pulse Rate 69 Respiratory Rate 16 Blood Pressure 125/70 H Blood Pressure Mean 88 Pulse Ox 100 Positive well nourished and well developed Constitutional Narrative: BMI is 21.4. General Appearance ED: well developed and NAD HEENT Reports moist mucous membranes Neck supple and no JVD Resp normal respiratory effort and clear to auscultation bilaterally Cardio regular rate and regular rhythm GI non-tender and non-distended Palpation: soft Extremity normal to inspection Neuro oriented x3, CN's II-XII intact bilaterally and no sensory deficits noted Sensorium / Orientation: (more content not included)... Normal [facility] Urinalysis, Completeon 05-12 BACTERIA 2+ /hpf Normal None Seen [facility] Comment on above: Order Comment: CLEAN CATCH Performed By: #### L 500.2500, L100.0100 #### [facility] [address] [place], [address] EPI,SQUAMOUS 0-5 SEEN Normal 5-10 [facility] Comment on above: Order Comment: CLEAN CATCH Performed By: #### L 500.2500, L100.0100 #### [facility] [address] [place], [address] Mucus Ql (Urine sed) 0 SEEN Normal [facility] Comment on above: Order Comment: CLEAN CATCH Performed By: #### L 500.2500, L100.0100 #### [facility] [address] [place], [address] RBC 0 SEEN Normal 0-5 [facility] Comment on above: Order Comment: CLEAN CATCH Performed By: #### L 500.2500, L100.0100 #### [facility] [address] [place], [address] WBC 0 SEEN Normal 0-5 [facility] Comment on above: Order Comment: CLEAN CATCH Performed By: #### L 500.2500, L100.0100 #### [facility] [address] [place], [address] hCG Titer Quant., Serumon HCG QUANT. 07253 mIU/mL High <9 non-preg [facility] Comment on above: Result Comment: Gest ational Age 0.2-1 Week: 5-50 mIU/mL 1-2 Weeks: 50-500 mIU/mL 2-3 Weeks: 100-5000 mIU/mL 3-4 Weeks: 500-10,000 mIU/mL 4-5 Weeks:1000-50,000 mIU/mL 5-6 Weeks: 10,000-100,000 mIU/mL 6-8 Weeks: 15,000-200,000 mIU/mL 2-3 Months:10,000-100,000 mIU/mL Performed By: #### L 500.2500, L100.0100 #### [facility] [address] [place], [address] Office Visit Reporton 2024 Office Visit Report [facility] [address] [place] [address] OFFICE VISIT Date of Service: 05/04/25 MR#: [id number] Acct: [id number] Patient: GLORIA NETTLES Rep #: [id number] : 2000 Provider: MARYLIN Crum ams Age/Sex: 24/F [facility] Status: Signed reviewed Intake Vital Signs 10/20/24 01:49 05/04/25 11:36 Height 5 ft 2 in 5 ft 2 in Weight: 113 lb 7 oz BMI 20.7 BP 98/68 Intake Visit Reasons: PNOB Chief Complaint: In person PNOB Allergies No Known Allergies Allergy (Verified 05/04/25 11:03) Is last menstrual period known: Yes Post menopausal: No Patient : Yes Nurse's Note: Pt here for secondary amenorrhea. Vitals WNL. PNOB questions completed. Problem list, allergies, and medications updated. First trimester ACOG education completed. Assessment and Plan Assessment and Plan Orders: Orders CBC W/Diff, Automated 05/04/25 O09.90 - Supervision of high risk , unspecified, unspecified trimester Type Screen 05/04/25 O09.90 - Supervision of high risk , unspecified, unspecified trimester Rubella IgG 05/04/25 O09.90 - Supervision of high risk , unspecified, unspecified trimester Hepatitis C Antibody 05/04/25 O09.90 - Supervision of high risk , unspecified, unspecified trimester Hepatitis B Surface Antigen 05/04/25 O09.90 - Supervision of high risk , unspecified, unspecified trimester Culture, Urine 05/04/25 O09.90 - Supervision of high risk , unspecified, unspecified trimester Syphilis Antibodies 05/04/25 O09.90 - Supervision of high risk , unspecified, unspecified trimester Chlamydia/GC OLIVIA aptima 05/04/25 O09.90 - Supervision of high risk , unspecified, unspecified trimester HIV 05/04/25 O09.90 - Supervision of high risk , unspecified, unspecified trimester PAP I-G w/rfx hrHPV-Aptima 05/04/25 Z12.4 - Encounter for screening for malignant neoplasm of cervix Urine Drug Screen 05/04/25 F12.90 - Cannabis use, unspecified, uncomplicated, O09.90 - Supervision of high risk , unspecified, unspecified trimester 05/11/25 0851 Date Raina Crowe CNM Cosigner Signature: Date (if applicable) CC: Normal [facility] BACTERIAL VAGINOSIS NAATon 0 02-02-2025 Lactobacillus crispatus+gasseri +jensenii + Gardnerella vaginalis + Atopobium vaginae rRNA OLIVIA+probe Ql (Vag fld) Detected Abnormal Not detected [facility] Comment on above: Order Comment: Speci men Type: SWAB Ordering Facility: [facility] Address: [address] [place] [address] Performed By: #### 3 6902-5, BVAMP #### [facility] CLIA [id number] [address] [place] [address] [place] Bacteria Ur Culton Bacteria identified Cx Nom (U) ORGANISM ID: 1 10,000 -<50,000 CFU/ml Mixed microbiota No further workup. Mixed microbiota can be due to???urine???contamination with skin bacteria at time of collection or presence of a long-term urinary catheter. If a new culture is needed, please consider re-education of the patient on proper midstream co llection technique or straight catheterization for???urine???collection. Normal [facility] Comment on above: Performed By: #### 6 30-4 #### [facility] CLIA [id number] [address] [place] [address] [place] C. trachomatis+N. gonorrhoea e DNA OLIVIA+probe Ql (Unsp spec)on 02-02-2025 C. trachomatis rRNA OLIVIA+probe Ql (Unsp spec) Not detected Normal Not detected [facility] Comment on above: Order Comment: Speci men Type: SWAB Ordering Facility: [facility] Address: [address] [place] [address] Performed By: #### 3 6902-5, BVAMP #### [facility] CLIA [id number] [address] [place] [address] [place] N. gonorrhoeae rRNA OLIVIA+probe Ql (Unsp spec) Not detected Normal Not detected [facility] Comment on above: Order Comment: Speci men Type: SWAB Ordering Facility: [facility] Address: [address] [place] [address] Performed By: #### 3 6902-5, BVAMP #### [facility] CLIA [id number] [address] [place] [address] [place] ADELITA/TRICHOMONAS NAATon 0 02-02-2025 C. glabrata RNA OLIVIA+probe Ql (Vag fld) Not detected Normal Not detected [facility] Comment on above: Order Comment: Speci men Type: SWAB Ordering Facility: [facility] Address: [address] [place] [address] Performed By: #### C VTV #### [facility] CLIA [id number] [address] [place] [address] [place] Adelita sp DNA OLIVIA+probe Ql (Vag fld) Detected Abnormal Not detected [facility] Comment on above: Order Comment: Speci men Type: SWAB Ordering Facility: [facility] Address: [address] [place] [address] Result Comment: The Adelita species group target includes C. albicans, C. tropicalis, C. parapsilosis, and C. dubliniensis. Performed By: #### C VTV #### [facility] CLIA [id number] [address] [place] [address] [place] T. vaginalis DNA OLIVIA+probe Ql (Unsp spec) Not detected Normal Not detected [facility] Comment on above: Order Comment: Speci men Type: SWAB Ordering Facility: [facility] Address: [address] [place] [address] Performed By: #### C VTV #### [facility] CLIA [id number] [address] [place] [address] [facility] CNOVon 02-02-2025 CNOV Office Visit (UCWSTR ) GLORIA NETTLES ([id number]) 2 F Date Time Provider Department 02/02/25 8:45 AM NATALI ZEPEDA [facility] During your visit today, we recorded the following information about you: Temperature Pulse Respiration Blood pressure 97.1 degrees 78/minute 16/minute 108/62 Weight 52.7 kg Natali Zepeda APRN.[facility] 02/02/2025 9:20 AM Signed [facility] Subjective Gloria Nettles is a 24 year old female. Patient presents with: Hematuria: x 2 days Hematuria Vaginal Soreness and Discharge: - Onset: 4 days ago. - Describes soreness in the vaginal area, particularly when wiping. just feels sore down there - Noticed a pink or slightly bloody appearance on toilet paper when wiping. - Reports a small amount of vaginal discharge. - Denies significant vaginal pruritus. - Denies dysuria, back pain, abdominal pain, fever, chills, nausea, emesis, or diarrhea. Denies skin rash or lesions - LMP: 01/16 to 01/21. - Sexually active; no recent change in partners. PAST MEDICAL HISTORY Diagnosis Date Intractable vomiting with nausea, unspecified vomiting type Marijuana user Noncompliance with treatment plan 11/24/2020 placed on care plan by [facility] for excessive visits PAST SURGICAL HISTORY Procedure Laterality Date COLONOSCOPY - DIAGNOSTIC 10/20/2020 EGD 10/20/2020 NONE ALLERGIES Patient has no known allergies. MEDICATIONS fluconazole (DIFLUCAN) 150 mg tablet Take 1 tablet by mouth one time only for 1 dose. dicyclomine (BENTYL) 20 mg tablet TAKE 1 TABLET BY MOUTH THREE TIMES A DAY NEEDED FOR ABDOMINAL DISCOMFORT hydrOXYzine pamoate (VISTARIL) 25 mg capsule Take 25 mg by mouth three times a day as needed. sertraline (ZOLOFT) 50 mg tablet Take 0.5 tablets by mouth once daily for 14 days, THEN 1 tablet once daily. ondansetron orally disintegrating (ZOFRAN ODT) 4 mg disintegrating tablet Take 1 tablet by mouth every 8 hours as needed. FAMILY HISTORY Problem Relation Age of Onset Thyroid Mother COPD Father Heart Maternal Grandmother Thyroid Maternal Grandmother Social History Tobacco Use Smoking status: Never Smokeless tobacco: Never Substance Use Topics Alcohol use: No Drug use: Not Currently Types: Marijuana Review of Systems Genitourinary: Positive for hematuria. Constitutional: (-) fever, (-) chills Gastrointestinal: (-) abdominal pain, (-) nausea, (-) vomiting, (-) diarrhea Genitourinary: (+) vaginal pain, (+) vaginal spotting, (+) vaginal discharge, (+) vaginal pruritus, (-) dysuria Musculoskeletal: (-) back pain Objective BP 108/62 Pulse 78 Temp 36.2 ?C (97.1 ?F) Resp 16 Wt 52.7 kg (116 lb 2.9 oz) LMP 10/01/2022 (Exact Date) SpO2 97% BMI 19.94 kg/m? Physical Exam Vitals and nursing note reviewed. Constitutional: General: She is not in acute distress. Appearance: Normal appearance. She is normal weight. She is not ill-appearing, toxic-appearing or diaphoretic. HENT: Head: Normocephalic and atraumatic. Right Ear: Ear canal and external ear normal. Left Ear: Ear canal and external ear normal. Nose: Nose normal. No congestion or rhinorrhea. Mouth/Throat: Mouth: Mucous membranes are moist. Pharynx: No oropharyngeal exudate or posterior oropharyngeal erythema. Eyes: General: Right eye: No discharge. Left eye: No discharge. Extraocular Movements: Extraocular movements intact. Conjunctiva/sclera: Conjunctivae normal. Pupils: Pupils are equal, round, and reactive to light. Cardiovascular: Rate and Rhythm: Normal rate and regular rhythm. Pulses: Normal pulses. Heart sounds: Normal heart sounds. No murmur heard. No friction rub. Pulmonary: Effort: Pulmonary effort is normal. No respiratory distress. Breath sounds: Normal breath sounds. No stridor. No wheezing, rhonchi or rales. Chest: Chest wall: No tenderness. Abdominal: General: Abdomen is flat. There is no distension. Palpations: Abdomen is soft. There is no mass. Tenderness: There is no abdominal tenderness. There is no right CVA tenderness, left CVA tenderness, guarding or rebound. Hernia: No hernia is present. Genitourinary: Comments: Declines pelvic exam Musculoskeletal: General: No swelling, tenderness, deformity or signs of injury. Normal range of motion. Cervical back: Normal range of motion and neck supple. No rigidity. Right lower leg: No edema. Left lower leg: No edema. Lymphadenopathy: Cervical: No cervical adenopathy. Skin: General: Skin is warm and dry. Capillary Refill: Capillary refill takes less than 2 seconds. Coloration: Skin is not jaundiced or pale. Findings: No bruising, erythema, lesion or rash. Neurological: General: No focal deficit present. Mental Status: She is alert and oriented to person, place, and time. Cranial Nerves: No cranial nerve deficit. Sensory: No sensory deficit. Motor: (more content not included)... Normal [facility] UA DIP, URINE (POC)on 2024 BILIRUBIN UA (POCT) Negative Negative [facility] CLARITY UA (POCT) Clear [facility] COLOR UA (POCT) Yellow [facility] GLUCOSE UA (POCT) Negative Negative mg/dL [facility] Hemoglobin Ql (U) Trace-lysed Abnormal Negative [facility] Interpretation and review of laboratory results Abnormal [facility] KETONE UA (POCT) Negative Negative mg/dL [facility] LEUKOCYTES UA (POCT) Negative Negative [facility] NITRITE UA (POCT) Negative Negative [facility] PH UA (POCT) 5.5 4.5 - 8.0 [facility] Protein Ql (U) Negative Negative mg/dL [facility] SPECIFIC GRAVITY UA (POCT) 1.025 1.005 - 1.030 [facility] UROBILINOGEN UA (POCT) 0.2 Normal E.U./dL [facility] Location:[facility] [place], [address], [place], [address] [facility] POINT OF CARE [facility] Urine Cultureon 10-22-2024 URC #1, 2 Below infectio n level. 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 Submit a new specimen if indicated. Normal [facility] Comment on above: Performed By: #### L 100.0100, L500.4050, L501.2450 #### [facility] [address] [place], [address] CBC W/Diff, Automatedon Absolute Lymph 0.48 X10 3/uL Low 0.83-4.51 [facility] Comment on above: Performed By: #### L 100.0100, L500.4050, L501.2450 #### [facility] [address] [place], [address] Absolute Neut 10.7 X10 3/uL High 2.0-7.7 [facility] Comment on above: Performed By: #### L 100.0100, L500.4050, L501.2450 #### [facility] [address] [place], [address] Basophils/100 WBC (Bld) 0.2 % Normal 0-1 [facility] Comment on above: Performed By: #### L 100.0100, L500.4050, L501.2450 #### [facility] [address] [place], [address] Eosinophils/100 WBC (Bld) 0.0 % Normal 0-5 [facility] Comment on above: Performed By: #### L 100.0100, L500.4050, L501.2450 #### [facility] [address] [place], [address] Erythrocyte distribution width (RBC) [Ratio] 12.5 % Normal 11.6-14.6 [facility] Comment on above: Performed By: #### L 100.0100, L500.4050, L501.2450 #### [facility] [address] [place], [address] Hematocrit (Bld) [Volume fraction] 38.3 % Normal 37-47 [facility] Comment on above: Performed By: #### L 100.0100, L500.4050, L501.2450 #### [facility] [address] [place], [address] Hemoglobin (Bld) [Mass/Vol] 13.6 g/dL Normal 12.0-15.0 [facility] Comment on above: Performed By: #### L 100.0100, L500.4050, L501.2450 #### [facility] [address] [place], [address] IG% 0.300 Normal 0.0-0.9 [facility] Comment on above: Result Comment: IG% - Immature Granulocytes (promyelocytes, myelocytes and metamyelocytes) > 1% indicates that a LEFT SHIFT is Present. Performed By: #### L 100.0100, L500.4050, L501.2450 #### [facility] [address] [place], [address] Lymphocytes/100 WBC (Bld) 4.2 % Low 19-41 [facility] Comment on above: Performed By: #### L 100.0100, L500.4050, L501.2450 #### [facility] [address] [place], [address] MCH (RBC) [Entitic mass] 31.6 pg Normal 27.0-32.0 [facility] Comment on above: Performed By: #### L 100.0100, L500.4050, L501.2450 #### [facility] [address] [place], [address] MCHC (RBC) [Mass/Vol] 35.5 g/dL Normal 32-36 [facility] Comment on above: Performed By: #### L 100.0100, L500.4050, L501.2450 #### [facility] [address] [place], [address] MCV (RBC) [Entitic vol] 88.9 fL Normal 81-99 [facility] Comment on above: Performed By: #### L 100.0100, L500.4050, L501.2450 #### [facility] [address] [place], [address] Monocytes/100 WBC (Bld) 2.2 % Normal 0-10 [facility] Comment on above: Performed By: #### L 100.0100, L500.4050, L501.2450 #### [facility] [address] [place], [address] Neutrophils/100 WBC (Bld) 93.1 % High 47-70 [facility] Comment on above: Performed By: #### L 100.0100, L500.4050, L501.2450 #### [facility] [address] [place], [address] Nucleated RBC (Bld) [#/Vol] 0 10*3/uL Normal 0-5 [facility] Comment on above: Performed By: #### L 100.0100, L500.4050, L501.2450 #### [facility] [address] [place], [address] Platelet mean volume (Bld) [Entitic vol] 11.3 fL Normal 6.2-12.0 [facility] Comment on above: Performed By: #### L 100.0100, L500.4050, L501.2450 #### [facility] [address] [place], [address] Platelets (Bld) [#/Vol] 242 10*3/uL Normal 150-450 [facility] Comment on above: Performed By: #### L 100.0100, L500.4050, L501.2450 #### [facility] [address] [place], [address] RBC (Bld) [#/Vol] 4.31 10*6/uL Normal 4.2-5.4 [facility] Comment on above: Performed By: #### L 100.0100, L500.4050, L501.2450 #### [facility] [address] [place], [address] RDW SD 41.1 fl Normal 35.1-43.9 [facility] Comment on above: Performed By: #### L 100.0100, L500.4050, L501.2450 #### [facility] [address] [place], [address] WBC (Bld) [#/Vol] 11.5 10*3/uL High 4.4-11.0 [facility] Comment on above: Performed By: #### L 100.0100, L500.4050, L501.2450 #### [facility] [address] [place], [address] Comprehensive Metabolic Prof ilon 10-20-2024 Albumin [Mass/Vol] 4.4 g/dL Normal 3.5-5.0 [facility] Comment on above: Performed By: #### L 100.0100, L500.4050, L501.2450 #### [facility] [address] [place], [address] Albumin/Globulin [Mass ratio] 1.6 {ratio} Normal 0.9-2.4 [facility] Comment on above: Performed By: #### L 100.0100, L500.4050, L501.2450 #### [facility] [address] [place], [address] ALK PHOS 93 U/L Normal 35-104 [facility] Comment on above: Performed By: #### L 100.0100, L500.4050, L501.2450 #### [facility] [address] [place], [address] ALT [Catalytic activity/Vol] 8 U/L Normal <=34 [facility] Comment on above: Performed By: #### L 100.0100, L500.4050, L501.2450 #### [facility] [address] [place], [address] AST [Catalytic activity/Vol] 21 U/L Normal <=31 [facility] Comment on above: Result Comment: Hemo lysis present, Results??could be affected. ?? Performed By: #### L 100.0100, L500.4050, L501.2450 #### [facility] [address] [place], [address] Bilirubin [Mass/Vol] 1.42 mg/dL High 0.00-1.30 [facility] Comment on above: Performed By: #### L 100.0100, L500.4050, L501.2450 #### [facility] [address] [place], [address] BUN/CRE 20.6 RATIO High 10-20 [facility] Comment on above: Performed By: #### L 100.0100, L500.4050, L501.2450 #### [facility] [address] [place], [address] Calcium [Mass/Vol] 9.2 mg/dL Normal 7.6-11.0 [facility] Comment on above: Performed By: #### L 100.0100, L500.4050, L501.2450 #### [facility] [address] [place], [address] Chloride [Moles/Vol] 101 mmol/L Normal 98-108 [facility] Comment on above: Performed By: #### L 100.0100, L500.4050, L501.2450 #### [facility] [address] [place], [address] CO2 [Moles/Vol] 19.2 mmol/L Low 21.0-32.0 [facility] Comment on above: Performed By: #### L 100.0100, L500.4050, L501.2450 #### [facility] [address] [place], [address] Creatinine [Mass/Vol] 0.71 mg/dL Normal 0.70-1.20 [facility] Comment on above: Performed By: #### L 100.0100, L500.4050, L501.2450 #### [facility] [address] [place], [address] ECRCL 95.91 ml/min Normal 50-250 [facility] Comment on above: Performed By: #### L 100.0100, L500.4050, L501.2450 #### [facility] [address] [place], [address] GAP 16 High 5-15 [facility] Comment on above: Performed By: #### L 100.0100, L500.4050, L501.2450 #### [facility] [address] [place], [address] GFR/1.73 sq M.predicted among non-blacks MDRD (S/P/Bld) [Vol rate/Area] 122 mL/min/{1.73_m2} Normal >60 [facility] Comment on above: Result Comment: mL/m in/1.73m2 CKD-EPI Creatinine Equation (2020) Performed By: #### L 100.0100, L500.4050, L501.2450 #### [facility] [address] [place], [address] Globulin (S) [Mass/Vol] 2.8 g/dL Normal 2.2-4.2 [facility] Comment on above: Performed By: #### L 100.0100, L500.4050, L501.2450 #### [facility] [address] [place], [address] Glucose [Mass/Vol] 101 mg/dL High 70-99 [facility] Comment on above: Performed By: #### L 100.0100, L500.4050, L501.2450 #### [facility] [address] [place], [address] Potassium [Moles/Vol] 3.5 mmol/L Normal 3.3-5.1 [facility] Comment on above: Result Comment: Hemo lysis present, Results??could be affected. ?? Performed By: #### L 100.0100, L500.4050, L501.2450 #### [facility] [address] [place], [address] Sodium [Moles/Vol] 136 mmol/L Normal 133-145 [facility] Comment on above: Performed By: #### L 100.0100, L500.4050, L501.2450 #### [facility] [address] [place], [address] T PROT 7.2 g/dL Normal 5.9-8.4 [facility] Comment on above: Performed By: #### L 100.0100, L500.4050, L501.2450 #### [facility] [address] [place], [address] Urea nitrogen [Mass/Vol] 15 mg/dL Normal 4-19 [facility] Comment on above: Performed By: #### L 100.0100, L500.4050, L501.2450 #### [facility] [address] [place], [address] Emergency Department Summary on 10-20-2024 Emergency Department Summary [facility] Medical Records Department [address] [place] [address] Emergency Department Summary 10/20/24 MR#: [id number] Acct: [id number] Name: GLORIA NETTLES TOBIAS Rep #: [id number] : 2000 24 From: Fay De Los Santos DO PCP: Dr. Wilfred Egan, DO Status:DEP ER Location: ED HPI HPI - GI History of Present Illness Chief Complaint: Nausea/Vomiting Informant: patient Narrative Narrative: Patient is a 24 year old with history of anxiety and frequent ER visit for abdominal pain and nausea and vomiting presenting with abdominal pain, nausea, vomiting and concern for influenza. She states her dad had the flu 1 to 2 weeks ago and she is worried that she could have it. She has had some mild congestion this week is been blowing her nose more frequently but denies any cough or sore throat. Denies any fevers. States that around 6 or 7 PM she started having intermittent episodes of vomiting. States she is thrown up 4-5 times. She took Zofran around 8 or 9 PM. She threw up again prior to arrival and came in. She states that she also just was not feeling good today and her stomach was bothering her. She did take Bentyl around noon. Last menstrual period was 3 weeks ago and she is not concerned for . She denies any diarrhea and feels that she is almost need to have a bowel movement but is not. Denies any history of any abdominal surgeries. Has seen GI in the past and had what sounds a gastric emptying study as well as EGD and colonoscopy but she does not know why she gets these episodes. Denies any other complaints at this time. Denies any blood in her stool or her vomit. [facility] Medical History Wears glasses History of steroid therapy Vapes nicotine containing substance Marijuana use Panic disorder Major depressive disorder, single episode, severe without psychosis Generalized anxiety disorder Home Medications ???Medication ???Instructions ???Recorded ???Last Taken ???Type hydroxyzine pamoate 25 mg capsule 25 mg PO TID PRN anxiety #20 caps 05/22/22 Unknown Rx (Vistaril) ondansetron 4 mg disintegrating 4 mg PO Q8H PRN PRN Nausea #10 tab s 05/29/23 Unknown Rx tablet dicyclomine 20 mg tablet 20 mg PO TID PRN abdominal 4 03/27/24 Rx discomfort #30 tabs hydroxyzine HCl 25 mg tablet 25 mg PO TID PRN anxiety #30 tabs 06/25/24 Unknown Rx nitrofurantoin 100 mg PO Q12H 5 days #10 caps 12/11 Unknown Rx monohydrate/macrocrystals 100 mg capsule (Macrobid) Allergy/AdvReac Type Severity Reaction Status Date / Time No Known Allergies Allergy Verified 10/20/24 01:55 Surgical History Hx of colonoscopy History of esophagogastroduodenoscopy (EGD) Social History Smoking Status: Current every day smoker tobacco type: e-cigarettes substance use type: marijuana ROS ROS ED Constitutional Constitutional ED: Reports sweats; Denies chills or fever(s) ENT ENT ED: Reports rhinorrhea; Denies sore throat Cardiovascular Cardiovascular: Denies chest pain Respiratory/Chest Respiratory/Chest: Denies cough or dyspnea Gastrointestinal Gastrointestinal: Reports abdominal pain, nausea and vomiting; Denies diarrhea Musculoskeletal Musculoskeletal: Denies arthralgias or myalgias Neurologic Neurologic: Denies paresthesias or weakness Psychiatric Psychiatric: Reports anxiety EXAM Physical Exam Const Vital Signs: 10/20/24 01:49 10/20/24 04:00 10/20/24 05:03 Temperature 99.3 F H 98.3 F Temperature Source Oral Pulse Rate 101 H 88 83 Respiratory Rate 18 18 18 Blood Pressure 121/66 H 98/47 L 90/56 L Blood Pressure Mean 84 64 67 Pulse Ox 99 98 97 Oxygen Delivery Method Room Air Room Air Positive well nourished and well developed General Appearance ED: well developed and NAD; Negative for pallor HEENT Reports dry mucous membranes HEENT Narrative: mildly dry mucosal membranes Mouth ED: Yes dry mucous membranes Mouth: dry mucous membranes Eyes PERRL Neck supple Resp normal respiratory effort and clear to auscultation bilaterally Cardio regular rate, regular rhythm and no murmurs GI non-tender and non-distended Auscultation: hyperactive bowel sounds Palpation: soft; Negative for tender or guarding Neuro Sensorium / Orientation: alert Motor Exam: Negative for general weakness Psych mental status grossly normal Mood Affect: anxious Skin General Skin Exam: Negative for jaundice or pallor MDM MDM MDM Narrative Medical decision making narrative: Patient presents with nausea, vomiting and abdominal pain. Review shows the patient had multiple ER visits for similar presentation in the past. Sh (more content not included)... Normal [facility] Lipaseon 10-20-2024 Lipase [Catalytic activity/Vol] 21 U/L Normal 13-75 [facility] Comment on above: Result Comment: Rashaun rodriguez note: LIPASE revised reference range effective 22. New Lipase methodology. Expected to produce lower values than the previous assay method. NEW Reference Range: 13 - 75 U/L Performed By: #### L 100.0100, L500.4050, L501.2450 #### [facility] [address] [place], [address] M100.678on 10-20-2024 M100.678 SARS-CoV-2 (COVID 19 ) Negative INFLUENZA A Negative INFLUENZA B Negative RSV PCR Negative Normal [facility] Comment on above: Performed By: #### M 100.678, L400.0001, L400.7600 #### [facility] [address] [place], [address] ,Urineon 10-20-2024 Beta HCG ( test) Ql (U) Negative Normal [facility] Comment on above: Result Comment: Very dilute urine specimens, as indicated by a low specific gravity, may not contain lifeline representatives levels of hCG. If is still suspected, a first morning urine specimen should be collected 48 hours later and tested. Performed By: #### M 100.678, L400.0001, L400.7600 #### [facility] [address] [place], [address] Urinalysis, Completeon 10-20 KETONE UR 150 mg/dl Abnormal Negative [facility] Comment on above: Order Comment: CLEAN CATCH Result Comment: CRIT ICAL VALUE *H CRITICAL VALUE CALLED TO SHEN 10/20/24 Gal Otoniel Haque. RESULTS READ BACK BY SAME. Performed By: #### M 100.678, L400.0001, L400.7600 #### [facility] [address] [place], [address] BACTERIA 3+ /hpf Normal None Seen [facility] Comment on above: Order Comment: CLEAN CATCH Performed By: #### M 100.678, L400.0001, L400.7600 #### [facility] [address] [place], [address] EPI,SQUAMOUS 10-25 SEEN Normal 5-10 [facility] Comment on above: Order Comment: CLEAN CATCH Performed By: #### M 100.678, L400.0001, L400.7600 #### [facility] [address] [place], [address] Mucus Ql (Urine sed) 3+ /hpf Normal [facility] Comment on above: Order Comment: CLEAN CATCH Performed By: #### M 100.678, L400.0001, L400.7600 #### [facility] [address] [place], [address] RBC 0 SEEN Normal 0-5 [facility] Comment on above: Order Comment: CLEAN CATCH Performed By: #### M 100.678, L400.0001, L400.7600 #### [facility] [address] [place], [address] WBC 50-100 SEEN Normal 0-5 [facility] Comment on above: Order Comment: CLEAN CATCH Performed By: #### M 100.678, L400.0001, L400.7600 #### [facility] [address] [place], [address] BILIRUBIN URINE 1 mg/dL Abnormal Negative [facility] Comment on above: Order Comment: CLEAN CATCH Result Comment: COLO R OF URINE MAY AFFECT DIPSTICK RESULTS. Performed By: #### M 100.678, L400.0001, L400.7600 #### [facility] [address] [place], [address] Clarity (U) Sl. Cloudy Normal Clear [facility] Comment on above: Order Comment: CLEAN CATCH Performed By: #### M 100.678, L400.0001, L400.7600 #### [facility] [address] [place], [address] Color (U) Yellow Normal Yellow [facility] Comment on above: Order Comment: CLEAN CATCH Performed By: #### M 100.678, L400.0001, L400.7600 #### [facility] [address] [place], [address] GLUCOSE, UR Normal Normal Normal [facility] Comment on above: Order Comment: CLEAN CATCH Performed By: #### M 100.678, L400.0001, L400.7600 #### [facility] [address] [place], [address] LEUK ESTERASE 500 /ul Abnormal Negative [facility] Comment on above: Order Comment: CLEAN CATCH Performed By: #### M 100.678, L400.0001, L400.7600 #### [facility] [address] [place], [address] Nitrite Ql (U) Negative Normal Negative [facility] Comment on above: Order Comment: CLEAN CATCH Performed By: #### M 100.678, L400.0001, L400.7600 #### [facility] [address] [place], [address] OCCULT BLOOD-UR Negative Normal Negative [facility] Comment on above: Order Comment: CLEAN CATCH Performed By: #### M 100.678, L400.0001, L400.7600 #### [facility] [address] [place], [address] pH UR 6.0 Normal 5.0 - 8.0 [facility] Comment on above: Order Comment: CLEAN CATCH Performed By: #### M 100.678, L400.0001, L400.7600 #### [facility] [address] [place], [address] PROT DIPSTX 30 mg/dl Abnormal Negative [facility] Comment on above: Order Comment: CLEAN CATCH Performed By: #### M 100.678, L400.0001, L400.7600 #### [facility] [address] [place], [address] SP.GR. DIPSTX 1.025 Normal 1.002-1.030 [facility] Comment on above: Order Comment: CLEAN CATCH Performed By: #### M 100.678, L400.0001, L400.7600 #### [facility] [address] [place], [address] UROBILI 1 mg/dl Abnormal Normal [facility] Comment on above: Order Comment: CLEAN CATCH Performed By: #### M 100.678, L400.0001, L400.7600 #### [facility] [address] [place], [address] Basic Metabolic Profile (BMP )on 06-25-2024 BUN/CRE 12.8 RATIO Normal 10-20 [facility] Comment on above: Performed By: #### L 500.2500, L100.0100 #### [facility] [address] [place], [address] CA,Total 8.9 mg/dL Normal 8.5-10.1 [facility] Comment on above: Performed By: #### L 500.2500, L100.0100 #### [facility] [address] [place], [address] Chloride [Moles/Vol] 112 mmol/L High 98-107 [facility] Comment on above: Performed By: #### L 500.2500, L100.0100 #### [facility] [address] [place], [address] CO2 [Moles/Vol] 23.0 mmol/L Normal 21.0-32.0 [facility] Comment on above: Performed By: #### L 500.2500, L100.0100 #### [facility] [address] [place], [address] Creatinine [Mass/Vol] 0.78 mg/dL Normal 0.55-1.02 [facility] Comment on above: Result Comment: The validity of the calculated GFR GFRAA in patients over 70 years has not been determined. Clinical correlation is essential. Performed By: #### L 500.2500, L100.0100 #### [facility] [address] [place], [address] ECRCL 93.58 ml/min Normal [facility] Comment on above: Performed By: #### L 500.2500, L100.0100 #### [facility] [address] [place], [address] EST GFR - AA 117 mL/min Normal >60 [facility] Comment on above: Result Comment: Afri can Algerian GFR Calc Performed By: #### L 500.2500, L100.0100 #### [facility] [address] [place], [address] GAP 4 Low 5-15 [facility] [place] Comment on above: Performed By: #### L 500.2500, L100.0100 #### [facility] [address] [place], [address] GFR/1.73 sq M.predicted among non-blacks MDRD (S/P/Bld) [Vol rate/Area] 97 mL/min/{1.73_m2} Normal >60 [facility] Comment on above: Result Comment: Non- GFR Calc Performed By: #### L 500.2500, L100.0100 #### [facility] [address] [place], [address] Glucose [Mass/Vol] 120 mg/dL High 74-106 [facility] Comment on above: Result Comment: Fast ing Glucose result from 100 to 125 mg/dL suggests IMPAIRED HOMEOSTASIS per A.D.A. criteria. Performed By: #### L 500.2500, L100.0100 #### [facility] [address] [place], [address] Potassium [Moles/Vol] 3.5 mmol/L Normal 3.5-5.1 [facility] Comment on above: Performed By: #### L 500.2500, L100.0100 #### [facility] [address] [place], [address] Sodium [Moles/Vol] 138 mmol/L Normal 136-145 [facility] Comment on above: Performed By: #### L 500.2500, L100.0100 #### [facility] [address] [place], [address] Urea nitrogen [Mass/Vol] 10 mg/dL Normal 7-18 [facility] Comment on above: Performed By: #### L 500.2500, L100.0100 #### [facility] [address] [place], [address] CBC W/Diff, Automatedon 11-0 7-2023 Absolute Lymph 1.02 X10 3/uL Normal 0.83-4.51 [facility] Comment on above: Performed By: #### L 500.2500, L100.0100 #### [facility] [address] [place], [address] Absolute Neut 10.7 X10 3/uL High 2.0-7.7 [facility] Comment on above: Performed By: #### L 500.2500, L100.0100 #### [facility] [address] [place], [address] Basophils/100 WBC (Bld) 0.5 % Normal 0-1 [facility] Comment on above: Performed By: #### L 500.2500, L100.0100 #### [facility] [address] [place], [address] Eosinophils/100 WBC (Bld) 0.6 % Normal 0-5 [facility] Comment on above: Performed By: #### L 500.2500, L100.0100 #### [facility] [address] [place], [address] Erythrocyte distribution width (RBC) [Ratio] 13.1 % Normal 11.6-14.6 [facility] Comment on above: Performed By: #### L 500.2500, L100.0100 #### [facility] [address] [place], [address] Hematocrit (Bld) [Volume fraction] 39.3 % Normal 37-47 [facility] Comment on above: Performed By: #### L 500.2500, L100.0100 #### [facility] [address] [place], [address] Hemoglobin (Bld) [Mass/Vol] 13.8 g/dL Normal 12.0-15.0 [facility] Comment on above: Performed By: #### L 500.2500, L100.0100 #### [facility] [address] [place], [address] IG% 0.400 Normal 0.0-0.9 [facility] Comment on above: Result Comment: IG% - Immature Granulocytes (promyelocytes, myelocytes and metamyelocytes) > 1% indicates that a LEFT SHIFT is Present. Performed By: #### L 500.2500, L100.0100 #### [facility] [address] [place], [address] Lymphocytes/100 WBC (Bld) 8.3 % Low 19-41 [facility] Comment on above: Performed By: #### L 500.2500, L100.0100 #### [facility] [address] [place], [address] MCH (RBC) [Entitic mass] 30.5 pg Normal 27.0-32.0 [facility] Comment on above: Performed By: #### L 500.2500, L100.0100 #### [facility] [address] [place], [address] MCHC (RBC) [Mass/Vol] 35.1 g/dL Normal 32-36 [facility] Comment on above: Performed By: #### L 500.2500, L100.0100 #### [facility] [address] [place], [address] MCV (RBC) [Entitic vol] 86.9 fL Normal 81-99 [facility] Comment on above: Performed By: #### L 500.2500, L100.0100 #### [facility] [address] [place], [address] Monocytes/100 WBC (Bld) 2.9 % Normal 0-10 [facility] Comment on above: Performed By: #### L 500.2500, L100.0100 #### [facility] [address] [place], [address] Neutrophils/100 WBC (Bld) 87.3 % High 47-70 [facility] Comment on above: Performed By: #### L 500.2500, L100.0100 #### [facility] [address] [place], [address] Nucleated RBC (Bld) [#/Vol] 0 10*3/uL Normal 0-5 [facility] Comment on above: Performed By: #### L 500.2500, L100.0100 #### [facility] [address] [place], [address] Platelet mean volume (Bld) [Entitic vol] 9.8 fL Normal 6.2-12.0 [facility] Comment on above: Performed By: #### L 500.2500, L100.0100 #### [facility] [address] [place], [address] Platelets (Bld) [#/Vol] 254 10*3/uL Normal 150-450 [facility] Comment on above: Performed By: #### L 500.2500, L100.0100 #### [facility] [address] [place], [address] RBC (Bld) [#/Vol] 4.52 10*6/uL Normal 4.2-5.4 [facility] Comment on above: Performed By: #### L 500.2500, L100.0100 #### [facility] [address] [place], [address] RDW SD 40.7 fl Normal 35.1-43.9 [facility] Comment on above: Performed By: #### L 500.2500, L100.0100 #### [facility] [address] [place], [address] WBC (Bld) [#/Vol] 12.3 10*3/uL High 4.4-11.0 [facility] Comment on above: Performed By: #### L 500.2500, L100.0100 #### [facility] [address] [place], [address] Emergency Department Summary on 06-25-2024 Emergency Department Summary [facility] Medical Records Department [address] [place] [address] Emergency Department Summary 06/25/24 MR#: [id number] Acct: [id number] Name: GLORIA NETTLES TOBIAS Rep #: [id number] : 2000 23 From: Ignacio Murphy DO PCP: Dr. Wilfred Egan DO Status:REG ER Location: ED ADDENDUM by Dr. Ignacio Murphy DO on 06/25/24 at 1022 Prior to initial discharge patient noted 1 episode of nonbloody nonbilious vomitus. At this point IV was placed. She was given IV Reglan, IV Benadryl. Labs were drawn which showed no sign of significant anemia or thrombocytopenia, no signs significant dehydration, metabolic acidosis or acute kidney injury. Did show leukocytosis with downtrending from prior. Repeat abdominal exam remained benign. Patient is able tolerate p.o. here in the emergency department. She is appropriate discharge home. She likely having acute on chronic exacerbation of underlying chronic abdominal pain, anxiety and cyclic vomiting syndrome. Psychiatry, PCP and GI follow-up was recommended. Strict return precautions were discussed. 06/25/24 1022 Cosigner Signature (if applicable): cc: Dr. Wilfred Egan DO * Signed HPI History of Present Illness Chief Complaint: Anxiety [facility] Medical History Wears glasses History of steroid therapy Vapes nicotine containing substance Marijuana use Panic disorder Major depressive disorder, single episode, severe without psychosis Generalized anxiety disorder Home Medications ???Medication ???Instructions ???Recorded ???Last Taken ???Type hydroxyzine pamoate 25 mg capsule 25 mg PO TID PRN anxiety #20 caps 05/22/22 Unknown Rx (Vistaril) ondansetron 4 mg disintegrating 4 mg PO Q8H PRN PRN Nausea #10 tabs 05/29/23 Unknown Rx tablet dicyclomine 20 mg tablet 20 mg PO TID PRN abdominal 03/13/24 03/27/24 Rx discomfort #30 tabs sertraline 50 mg tablet 50 mg PO QHS 03/31/24 03/31/24 History hydroxyzine HCl 25 mg tablet 25 mg PO TID PRN anxiety #30 tabs 06/25/24 Unknown Rx Allergy/AdvReac Type Severity Reaction Status Date / Time No Known Allergies Allergy Verified 06/11/24 08:43 Surgical History Hx of colonoscopy History of esophagogastroduodenoscopy (EGD) Social History Smoking Status: Current every day smoker tobacco type: e-cigarettes substance use type: marijuana EXAM Physical Exam Const Vital Signs: 06/25/24 07:32 Temperature 98 F Temperature Source Temporal Pulse Rate 81 Respiratory Rate 14 Blood Pressure 119/76 Blood Pressure Mean 90 Pulse Ox 98 Oxygen Delivery Method Room Air [facility] Narrative Medical decision making narrative: HISTORY OF PRESENT ILLNESS: 23-year-old female presents with concern for anxiety. No inciting event. Noted worsen this morning. No she has tried Vistaril and Atarax in the past with success. She also notes 1 episode of nonbloody nonbilious vomitus. Denies any abdominal pain for me today denies any chest pain. Denies any urinary complaints. States he is on it. She is nothing she is . Patient denies any suicidal ideation, homicidal ideation, auditory visual hallucinations Care plan per nursing. REVIEW OF SYSTEMS: Pertinent positives: Anxiety, nausea, Pertinent negatives: Suicidal ideation, homicidal ideation, auditory visual hallucinations PHYSICAL EXAM: Nursing triage notes reviewed, Vital signs reviewed Constitutional: please see mdm HENT: MMM Eyes: Pupils equal round and reactive to light, Extraocular muscles intact Neck: No stridor, no JVD, full neck ROM Lungs: Clear to auscultation, No wheezing or rales. No increased work of breathing, no conversational dyspnea, no accessory muscle use, no nasal flaring. No respiratory distress noted Heart: Regular rate and rhythm, No murmurs, No rubs and No gallops, 2+ distal pulses (radial, femoral, posterior tibial) in all extremities Abdomen: Soft, there is no tenderness, rigidity, rebound or guarding, no obvious peritoneal signs, no palpable pulsatile abdominal masses, no auscultated abdominal bruit : No CVAT Extremities: No edema Neuro: No focal neurological deficits, cranial nerves II through XII intact, 5/5 strength in all extremities. Intact sensation to light touch in all extremities, 2+ reflexes bilateral patella tendons. Normal gait. No ataxia. Skin: No rash or lesions noted MEDICAL DECISION MAKING: Chief Complaint: Anxiety., Nausea External records reviewed: Reviewed prior ED records, reviewed allergies, most recent visit patient was diagnosed with vomiting May[place]. She improved with Thorazine and Benadryl. Prior EGD and colonoscopy that (more content not included)... Normal [facility] ,Urineon 06-25-2024 Beta HCG ( test) Ql (U) [facility] Comment on above: Result Comment: NICK ENT DISCHARGED Performed By: #### L 500.2500, L100.0100 #### [facility] [address] [place], [address] INTERNAL QC OK? [facility] Comment on above: Result Comment: NICK ENT DISCHARGED Performed By: #### L 500.2500, L100.0100 #### [facility] [address] [place], [address] RECORD KIT LOT# [facility] Comment on above: Result Comment: NICK ENT DISCHARGED Performed By: #### L 500.2500, L100.0100 #### [facility] [address] [place], [address] Emergency Department Summary on 06-11-2024 Emergency Department Summary [facility] Medical Records Department [address] [place] [address] Emergency Department Summary 06/11/24 MR#: [id number] Acct: [id number] Name: GLORIA NETTLES TOBIAS Rep #: [id number] : 2000 23 From: Fernando Sanchez DO PCP: Dr. Wilfred Egan, Status:DEP ER Location: ED HPI History of Present Illness Chief Complaint: Nausea/Vomiting Informant: patient Narrative Narrative: 23-year-old female presenting to the emergency room with the chief complaint of vomiting. Patient states that she woke this morning having nausea and vomiting and significant anxiety. She states she cannot stop shaking. She denies any diarrhea. She reports that she has been seeing gastroenterology and recently underwent EGD colonoscopy and gastric emptying. She states that she does occasionally use cannabis. The patient states that that her upper abdomen is hurting her. Is reported by nursing that the patient has a care plan. [facility] Medical History Wears glasses History of steroid therapy Vapes nicotine containing substance Marijuana use Panic disorder Major depressive disorder, single episode, severe without psychosis Generalized anxiety disorder Home Medications ???Medication ???Instructions ???Recorded ???Last Taken ???Type hydroxyzine pamoate 25 mg capsule 25 mg PO TID PRN anxiety #20 caps 05/22/22 Unknown Rx (Vistaril) ondansetron 4 mg disintegrating 4 mg PO Q8H PRN PRN Nausea #10 tabs 05/29/23 Unknown Rx tablet dicyclomine 20 mg tablet 20 mg PO TID PRN abdominal 03/13/24 03/27/24 Rx discomfort #30 tabs sertraline 50 mg tablet 50 mg PO QHS 03/31/24 03/31/24 History Allergy/AdvReac Type Severity Reaction Status Date / Time No Known Allergies Allergy Verified 06/11/24 08:43 Surgical History Hx of colonoscopy History of esophagogastroduodenoscopy (EGD) Social History Smoking Status: Current every day smoker tobacco type: e-cigarettes substance use type: marijuana ROS ROS ED Constitutional Constitutional ED: Denies chills, fever(s) or weight loss Eyes Eyes: Denies change in vision or diplopia ENT ENT ED: Denies ear pain, rhinorrhea or sore throat Cardiovascular Cardiovascular: Denies chest pain, orthopnea, palpitations or racing heartbeat Respiratory/Chest Respiratory/Chest: Denies cough, dyspnea or orthopnea Gastrointestinal Gastrointestinal: Reports abdominal pain, nausea and vomiting; Denies diarrhea Genitourinary Genitourinary ED: Denies dysuria, hematuria or urinary frequency Musculoskeletal Musculoskeletal: Denies arthralgias or myalgias Integumentary Denies abscess or rash Neurologic Neurologic: Denies headache(s) or weakness Psychiatric Psychiatric: Reports anxiety; Denies depression, suicidal ideation or suicidal thoughts Endocrine Endocrinology: Denies polydipsia, polyphagia or polyuria Allergic/Immunologic Allergic/Immunologic ED: Denies mouth swelling, tongue swelling or urticaria EXAM Physical Exam Narrative Exam Narrative: Patient is laying in the bed shaking and crying. She is retching. Const Vital Signs: 06/11/24 08:43 06/11/24 08:44 06/11/24 10:43 Temperature 98 F Temperature Source Temporal Pulse Rate 131 H 123 H 126 H Respiratory Rate 20 H 20 H 22 H Blood Pressure 124/65 H 130/99 H 129/78 H Blood Pressure Mean 84 109 95 Pulse Ox 99 100 100 Oxygen Delivery Method Room Air Room Air 06/11/24 12:00 06/11/24 13:12 Temperature Temperature Source Pulse Rate 88 68 Respiratory Rate 16 16 Blood Pressure 102/47 L 109/54 L Blood Pressure Mean 65 72 Pulse Ox Oxygen Delivery Method Positive well nourished and well developed General Appearance ED: well developed HEENT Reports normocephalic, head/scalp atraumatic and moist mucous membranes Eyes PERRL and EOMs intact bilaterally Neck no lymphadenopathy, supple and no JVD Resp normal respiratory effort and clear to auscultation bilaterally Cardio regular rate, regular rhythm and no murmurs Rate: tachycardic GI Palpation: soft and tender epigastric; Negative for guarding or rebound tenderness present Back/Spine no CVA tenderness and normal ROM Extremity normal to inspection General Extremety ED: Negative for edema General Extremity: Negative for edema Neuro oriented x3 and CN's II-XII intact bilaterally Sensorium / Orientation: alert Motor Exam: strength 5/5 throughout Psych Mood Affect: anxious and tearful Skin no rashes or lesions noted and no wounds MDM MDM MDM Narrative Medical decision making narrative: I reviewed the patient's chart I see that she has a history of cyclic vomi (more content not included)... Normal [facility] ,Serum,hCG Quali.on 06-11-2024 HCG, SERUM QUAL Negative Normal [facility] Comment on above: Performed By: #### L 500.2500, L100.0100 #### [facility] [address] [facility] [place], [place], [id number] Gastric Emptying Studyon Gastric Emptying Study [facility] Imaging Services [address] [place], [place] [address] Gastric Emptying Study MR#: [id number] Acct: [id number] Name: GLORIA NETTLES TOBIAS Rep #: [id number] : 2000 F 23 From: Stanton Jennings PCP: Dr. Wilfred Egan DO Status: REG CLI Study: Gastric Emptying Study Date of Exam: 06/01/24 Exam# [id number] Ordering Dr: Kyleigh Joseph [id number] CLINICAL: 23-year-old female with history of chronic nausea. SEMI-SOLID PHASE 99m Tc SULFUR COLLOID GASTRIC EMPTYING STUDY COMPARISON: None available FINDINGS: The patient was administered 1.1 mCi of 99m Tc sulfur colloid mixed with oatmeal and consumed per os. Image acquisitions in the anterior-posterior projections were obtained for 60 minutes. There is prompt visualization of the stomach. There is no gastroesophageal reflux identified. First order kinetics are maintained throughout the duration of the acquisitions. The T ? linear fit was calculated to be 57.44 minutes, (Normal: 12-56 minutes). NM/Gastric Emptying Study IMPRESSION: 1. ABNORMAL 99m Tc sulfur colloid semi-solid phase (oatmeal) gastric emptying imaging examination. A. There is mild delayed semi-solid phase gastric emptying compared to normal controls with maintained first order kinetics throughout all components of the examination. (Mukund et al, J Nucl Med Tech 38: 186, 2010). Electronically Signed: Stanton Elaine DO at 9:26 EDT , CC: Dr. Wilfred Egan DO; ARNULFO Fernandez Director Of Purchasing: Signed Normal [facility] CNOVon 03-04-2024 CNOV Office Visit (FAMPWS ) GLORIA NETTLES ([id number]) 2 F Date Time Provider Department 03/04/24 9:00 AM PONCHO JAIME During your visit today, we recorded the following information about you: Pulse Respiration Blood pressure Weight 81/minute 16/minute 108/62 54.2 kg Poncho Jaime APRN.PALMIRA 03/04/2024 6:30 PM Signed Chief Complaint Patient presents with: ER F/U: Abd pain, seeing gastro next month, anxiety HPI Gloria Nettles is a 23 year old female who presents here today for Above Complaints.. [facility] ER on 02/27 with abdominal pain and anxiety. Is seeing Dr. Adkins GI at [facility]. Stress/anxiety-work has been frustrating lately. Has [...] somewhat and this lasts a few hours. [id number] like to take this a lot because [...] plan 11/24/2020 placed on care plan by [facility] ED for excessive visits Previous Surgical [...] Cancer Screening Never done Covid-19 Vaccine( - 2022-24 season) Never done Behavioral Health Screening Never done DTaP,Tdap,Td Vaccine(7 - Td or Tdap) due on 03/30/2024 Influenza Vaccine(1) due on 04/19/2024 Hepatitis B Vaccine Completed Data reviewed Previous records, office notes ASSESSMENT/PLAN: 1. Anxiety - ICD9: 300.00, ICD10: F41.9 (primary diagnosis) Continue with plan to see Dr. Adkins with [facility] GI. - SERTRALINE 50 MG TABLET - CONSULT TO PSYCHIATRY 2. Abdominal cramping - ICD9: 789.00, ICD10: R10.9 Continue with plan to see Dr. Adkins with [facility] GI. - SERTRALINE 50 MG TABLET - CONSULT TO PSYCHIATRY 3. Nausea and vomiting, unspecified vomiting type (more content not included)... Normal [facility] COVID-19, MOLECULARon 2022 SARS-CoV-2 (COVID-19) Ab IA Ql Not detected Normal Not Detected [facility] Comment on above: Result Comment: This test was performed under the FDA's Emergency Use Authorization (EUA). Testing was performed using the [employer] ID NOW COVID-19 assay on the ID NOW platform. This test has not been approved for use in asymptomatic patients and its performance in this patient population has not been evaluated. Negative results do not rule out the presence of SARS-CoV-2/COVID-19. Fact sheets for the EUA can be found at the following links: For Healthcare Providers: https://www.fda.gov/media/576085/download For Patients: https://www.fda.gov/media/877737/download CT ABDOMEN PELVIS WITH IV CO NTRAST [...] on SatDecember 26, 2022 11:21:22 PM EDT [facility] Comment on above: Order Comment: Injur y/Trauma or Illness?:Illness/Other How long have you had these symptoms (acute/chronic)?:Acute Reason for exam?:abd pain and vomiting Type of Exam?:Initial Additional signs and symptoms?:none HCG Preg Ur Qlon 10-20-2020 HCG ( test) Ql (U) Negative Normal Negative [facility] Comment on above: Order Comment: Speci men Type: URINE SPECIMEN Result Comment: This test is intended to aid in the early detection of . Very dilute urine samples, as indicated by a low specific gravity, may not contain lifeline representatives levels of hCG. This test detects intact [...] . Performed By: #### 2 106-3 #### [facility] CLIA [id number] [address] [place] [address] [facility] SURGICAL PATHOLOGYon CASE REPORT Normal [facility] Comment on above: Order Comment: Speci men Type: TISSUE SPECIMEN Result Comment: Surg ica Pathology Report Case: [id number] Authorizing Provider: Maryjane Levy Collected: 10/20/2020 01:09 PM Ordering Location: SURGERY Received: 10/21/2020 06:46 AM Pathologist: Yves Sandoval MD Specimens: A) - DUODENUM BIOPSY, Second Portion Duodenun B) - ANTRUM C) - ESOPHAGUS BIOPSY, Mid Esophagus D) - COLON BIOPSY, Random Mucosal Biopsies Performed By: #### S #### [facility] CLIA [id number] [address] [place] [address] FINAL DIAGNOSIS [facility] Comment on above: Order Comment: Speci [...] histopathologic change. Performed By: #### S #### [facility] CLIA [id number] [address] [place] [address] FINAL PERFORMING LAB Normal [facility] Comment on above: Order Comment: Speci men Type: TISSUE SPECIMEN Result Comment: Diag nostic interpretation performed at [facility], [address] [place] [address] CLIA# [id number] Oncology Patient Navigator: Zafar Jacome M.D. Performed By: #### S #### [facility] CLIA [id number] [address] [place] [address] GROSS DESCRIPTION Normal [facility] Comment on above: Order Comment: Speci [...] 1 cassette. RSA/pkp Gross examination performed at [facility], [address] [place] [address] CLIA# [id number] Performed By: #### S #### [facility] CLIA [id number] [address] [place] [address] Vital Signs Date Time Vital Sign Value Performing Clinician Facility 02-02-2025 08:49-0400 Body mass index (BMI) [Ratio] 19.94 kg/m2 Natali Zepeda APRN.CHEMICAL TEST ENGINEER Work Phone: [facility] 02-02-2025 08:49-0400 Body temperature 97.11 [degF] Natali Zepeda BELL CLEANER.CHEMICAL TEST ENGINEER Work Phone: [facility] 02-02-2025 08:49-0400 Body weight 52.7 kg Natali Zepeda BELL CLEANER.CHEMICAL TEST ENGINEER Work Phone: [facility] 02-02-2025 08:49-0400 Diastolic blood pressure 62 mm[Hg] Natali Zepeda BELL CLEANER.CHEMICAL TEST ENGINEER Work Phone: [facility] 02-02-2025 08:49-0400 Heart rate 78 /min Natali Zepeda BELL CLEANER.CHEMICAL TEST ENGINEER Work Phone: [facility] 02-02-2025 08:49-0400 Respiratory rate 16 /min Natali Zepeda BELL CLEANER.CHEMICAL TEST ENGINEER Work Phone: [facility] 02-02-2025 08:49-0400 SaO2% (BldA) [Mass fraction] 97 % Natali Zepeda BELL CLEANER.CHEMICAL TEST ENGINEER Work Phone: [facility] 02-02-2025 08:49-0400 Systolic blood pressure 108 mm[Hg] Natali Zepeda BELL CLEANER.CHEMICAL TEST ENGINEER Work Phone: [facility] 03-04-2024 09:10-0400 Body mass index (BMI) [Ratio] 20.49 kg/m2 Poncho Sheldon BELL CLEANER.CHEMICAL TEST ENGINEER Work Phone: [facility] 03-04-2024 09:10-0400 Body weight 54.16 kg Poncho Sheldon BELL CLEANER.CHEMICAL TEST ENGINEER Work Phone: [facility] 03-04-2024 09:10-0400 Diastolic blood pressure 62 mm[Hg] Poncho Sheldon BELL CLEANER.CHEMICAL TEST ENGINEER Work Phone: [facility] 03-04-2024 09:10-0400 Heart rate 81 /min Poncho Sheldon BELL CLEANER.CHEMICAL TEST ENGINEER Work Phone: [facility] 03-04-2024 09:10-0400 Respiratory rate 16 /min Poncho Sheldon BELL CLEANER.CHEMICAL TEST ENGINEER Work Phone: [facility] 03-04-2024 09:10-0400 SaO2% (BldA) [Mass fraction] 99 % Poncho Sheldon BELL CLEANER.CHEMICAL TEST ENGINEER Work Phone: [facility] 03-04-2024 09:10-0400 Systolic blood pressure 108 mm[Hg] Poncho Sheldon BELL CLEANER.CHEMICAL TEST ENGINEER Work Phone: [facility] 10-19-2022 15:14-0500 Body temperature 97.81 [degF] Wilfred Egan DO Work Phone: [facility] 10-19-2022 15:14-0500 Body weight 55.79 kg Wilfred Egan DO Work Phone: [facility] 10-19-2022 15:14-0500 Diastolic blood pressure 60 mm[Hg] Wilfred Egan DO Work Phone: [facility] 10-19-2022 15:14-0500 Heart rate 96 /min Wilfred Egan DO Work Phone: [facility] 10-19-2022 15:14-0500 Respiratory rate 16 /min Wilfred Egan DO Work Phone: [facility] 10-19-2022 15:14-0500 Systolic blood pressure 120 mm[Hg] Wilfred Egan DO Work Phone: [facility] 05-20-2022 03:36-0400 Body height 160 cm Savage Scott MD Work Phone: [facility] 05-20-2022 03:36-0400 Body mass index (BMI) [Ratio] 23.03 kg/m2 Savage Scott MD Work Phone: [facility] 05-20-2022 03:36-0400 Body weight 58.97 kg Savage Scott MD Work Phone: [facility] 05-20-2022 03:35-0400 Body temperature 98.1 [degF] Savage Scott MD Work Phone: [facility] 05-20-2022 03:35-0400 Diastolic blood pressure 60 mm[Hg] Savage Scott MD Work Phone: [facility] 05-20-2022 03:35-0400 Heart rate 105 /min Savage Scott MD Work Phone: [facility] 05-20-2022 03:35-0400 Respiratory rate 20 /min Savage Scott MD Work Phone: [facility] 05-20-2022 03:35-0400 SaO2% (BldA) [Mass fraction] 99 % Savage Scott MD Work Phone: [facility] 05-20-2022 03:35-0400 Systolic blood pressure 127 mm[Hg] Savage Scott MD Work Phone: [facility] 01-17-2022 08:29-0400 Body weight 61.24 kg Poncho Sheldon BELL CLEANER.CHEMICAL TEST ENGINEER Work Phone: [facility] 01-17-2022 08:29-0400 Diastolic blood pressure 74 mm[Hg] Poncho Sheldon BELL CLEANER.CHEMICAL TEST ENGINEER Work Phone: [facility] 01-17-2022 08:29-0400 Heart rate 74 /min Poncho Sheldon BELL CLEANER.CHEMICAL TEST ENGINEER Work Phone: [facility] 01-17-2022 08:29-0400 Respiratory rate 16 /min Poncho Sheldon BELL CLEANER.CHEMICAL TEST ENGINEER Work Phone: [facility] 01-17-2022 08:29-0400 SaO2% (BldA) [Mass fraction] 97 % Poncho Sheldon BELL CLEANER.CHEMICAL TEST ENGINEER Work Phone: [facility] 01-17-2022 08:29-0400 Systolic blood pressure 104 mm[Hg] Poncho Sheldon BELL CLEANER.CHEMICAL TEST ENGINEER Work Phone: [facility] Encounters Encounter Date Encounter Type Care Provider Facility Start: 05-21-2025 ambulatory Raina Crowe Facility :[facility] Start: 05-13-2025 End: 05-13-2025 Emergency department patient visit Fay De Los Santos Facility:[facility] Start: 05-12-2025 End: 05-12-2025 Emergency department patient visit Zafar Marrero Facility:[facility] Start: 05-04-2025 End: 05-04-2025 ambulatory Raina Crowe Facility:[facility] Start: 02-03-2025 End: 02-03-2025 Follow-up encounter Lisa Banda BELL CLEANER.CHEMICAL TEST ENGINEER Work Phone: [facility] Start: 02-02-2025 End: 02-02-2025 Patient encounter procedure Natali Zepeda BELL CLEANER.CHEMICAL TEST ENGINEER Work Phone: [facility] Comment on above: Hematuria, unspecifi ed type (Primary Dx); Vaginal discomfort; Encounter for screening for bacterial sexually transmitted disease Start: 02-02-2025 End: 02-02-2025 ambulatory WILFRED EGAN Facility:[facility] Start: 10-20-2024 End: 10-20-2024 Emergency department patient visit Fay De Los Santos Facility:[facility] Start: 06-25-2024 End: 06-25-2024 Emergency department patient visit Ignacio Oneills Facility:[facility] Start: 06-11-2024 End: 06-11-2024 Emergency department patient visit Fernando Sanchez Facility:[facility] Start: 06-02-2024 ambulatory Kyleigh Joseph Facili ty:[facility] Start: 06-01-2024 End: 06-01-2024 ambulatory yKleigh Joseph Facility:[facility] Start: 03-04-2024 End: 03-04-2024 ambulatory PONCHO CASTELLONUTZMAN Facility:[facility] Start: 03-04-2024 End: 03-04-2024 Office outpatient visit 25 minutes Poncho Jaime BELL CLEANER.CHEMICAL TEST ENGINEER Work Phone: [facility] Comment on above: Anxiety (Primary Dx) ; Abdominal cramping; Nausea and vomiting, unspecified vomiting type Start: 05-15-2023 End: 05-15-2023 Emergency department patient visit CHASITY PARIKH [facility] Start: 12-28-2022 End: 12-28-2022 Emergency department patient visit WILFRED EGAN [facility] Start: 12-26-2022 End: 12-27-2022 Emergency department patient visit WILFRED EGAN [facility] Start: 10-22-2022 Patient encounter status Marco Antonio Egan DO Work Phone: [facility] Work Phone: Start: 10-19-2022 End: 10-19-2022 Patient encounter procedure Wilfred Egan DO Work Phone: [facility] Comment on above: Well adult exam (Beatris andreas Dx); Anxiety; Thyromegaly Start: 10-19-2022 End: 10-19-2022 Patient encounter status Wilfred Egan DO Work Phone: [facility] Start: 05-20-2022 End: 05-20-2022 Emergency department patient visit SAVAGE SCOTT Facility:[facility] Start: 05-20-2022 End: 05-20-2022 Emergency department patient visit Savage Scott MD Work Phone: [facility] Emergency Department Start: 02-01-2022 End: 02-01-2022 Patient encounter procedure Bowen Mariaa KICK PLATE INSTALLER Work Phone: Psychology Comment on above: No-show for appointm ent (Primary Dx) Start: 01-17-2022 Telephone encounter Bowen Laina ll KICK PLATE INSTALLER Work Phone: Psychology Comment on above: Consult (Initial [facility] W Pt Outreach) Start: 01-17-2022 End: 01-17-2022 Patient encounter procedure Poncho Jaime BELL CLEANER.CHEMICAL TEST ENGINEER Work Phone: [facility] Comment on above: Major depressive dis order, remission status unspecified, unspecified whether recurrent (Primary Dx); Anxiety; Chronic superficial gastritis without bleeding; Lower abdominal pain Procedures Date Procedure Procedure Detail Performing Clinician Start: 02-02-2025 Urnls dip stick/tabl et rgnt auto w/o microscopy Natali Zepeda BELL CLEANER.CHEMICAL TEST ENGINEER Work Phone: Plan of Treatment Date Care Activity Detail Author Start: 02-02-2026 GC (Gonorrhea) Scree anne () GC (Gonorrhea) Screening (-) [facility] Start: 02-02-2026 Screening for Chlamy ihsan trachomatis Chlamydia Screening () [facility] Start: 04-19-2025 Influenza vaccination Influenz a Vaccine (Season Ended) [facility] Start: 06-24-2024 End: 06-24-2024 Patient encounter procedure 06/24/2024 2:20 PM EST Office Visit [facility] [address], [place] [address] Wilfred Egan, [address] [place], [place] [id number] [facility] Comment on above: Physical Start: 04-23-2024 End: 04-23-2024 ambulatory 04/23/2024 10:00 AM EDT [facility] [address] [place] [address] Nichol Dowell, BELL CLEANER.CHEMICAL TEST ENGINEER [address] [place] [id number] Anxiety [F41.9] Psychiatry Comment on above: Anxiety [F41.9] Start: 04-19-2024 Covid-19 Vaccine ( season) Covid-19 Vaccine () [facility] Start: 04-19-2024 Influenza vaccination Influenza Vacc ine (#1) [facility] Start: 03-30-2024 Urine microalbumin profile [facility] Start: 10-20-2023 COVID-19 VACCINE (#1) COVID-19 VACCI NE (#1) [facility] Comment on above: Postponed from 12/24 (Declined at this time) Start: 08-19-2023 Behavioral Health Screening Behavioral Health Screening [facility] Start: 04-19-2023 Covid-19 Vaccine ( season) Covid-19 Vaccine ( season) [facility] Start: 02-15-2023 Influenza vaccination INFLUENZA (#1) [facility] Comment on above: Postponed from 04/19 (Declined at this time) Start: 10-19-2022 End: 12-19-2022 CBC W Auto Differential panel - Blood CBC + DIFF Lab Routine Anxiety Thyromegaly Expected: 10/19/2022, Expires: 12/19/2022 [facility] Work Phone: Comment on above: Expected: 10/19/2022 , Expires: 12/19/2022 Start: 10-19-2022 End: 12-19-2022 Comprehensive metabolic 2000 panel - Serum or Plasma COMP METABOLIC PANEL Lab Routine Anxiety Thyromegaly Expected: 10/19/2022, Expires: 12/19/2022 [facility] Work Phone: Comment on above: Expected: 10/19/2022 , Expires: 12/19/2022 Start: 10-19-2022 End: 12-19-2022 THYROID PEROXIDASE ANTIBODY BLOOD THYROID PEROXIDASE ANTIBODY BLOOD Lab Routine Anxiety Thyromegaly Expected: 10/19/2022, Expires: 12/19/2022 [facility] Work Phone: Comment on above: Expected: 10/19/2022 , Expires: 12/19/2022 Start: 10-19-2022 End: 12-19-2022 Thyrotropin [Units/volume] in Serum or Plasma TSH BLD Lab Routine Anxiety Thyromegaly Expected: 10/19/2022, Expires: 12/19/2022 [facility] Work Phone: Comment on above: Expected: 10/19/2022 , Expires: 12/19/2022 Start: 10-19-2022 End: 12-19-2022 Thyroxine (T4) free [Mass/volume] in Serum or Plasma T4 FREE/FREE THYROX Lab Routine Anxiety Thyromegaly Expected: 10/19/2022, Expires: 12/19/2022 [facility] Work Phone: Comment on above: Expected: 10/19/2022 , Expires: 12/19/2022 Start: 10-19-2022 End: 12-19-2022 Triiodothyronine (T3) Free [Mass/volume] in Serum or Plasma T3 FREE BLD Lab Routine Anxiety Thyromegaly Expected: 10/19/2022, Expires: 12/19/2022 [facility] Work Phone: Comment on above: Expected: 10/19/2022 , Expires: 12/19/2022 Start: 2022 PAP TESTING PAP TESTING [facility] Start: 2022 Screening for malign ant neoplasm of cervix Cervical Cancer Screening [facility] Start: 04-19-2022 Influenza vaccination C [facility] Start: 2020 Third diphtheria, te tanus and acellular pertussis (DTaP) vaccination TDAP (ADULT) [facility] Start: 2019 CHLAMYDIA SCREENING (1824) CHLAMYDIA SCREENING (18) [facility] Start: 2019 Depression Screening Depression Scre ening [facility] Start: 2019 GC (GONORRHEA) SCREE ANNE (18-24) GC (GONORRHEA) SCREENING (18-24) [facility] Start: 2019 HEPATITIS C SCREENING HEPATITIS C [facility] Start: 2019 Hepatitis C screening Hepatitis C [facility] Start: 2019 HIV SCREENING HIV SCREENING [facility] Start: 2019 HIV screening HIV Screening [facility] Start: 2019 Screening for Chlamy ihsan trachomatis Chlamydia Screening () [facility] Start: 2019 Tetanus vaccination TETANUS [facility] Start: 2017 Meningococcal B Vacc ine (1 of 2 - Standard) Meningococcal B Vaccine (1 of 2 - Standard) [facility] Start: 2017 Meningococcal B Vacc ine: Consider Based On Risk (1 of 2 - Patient Seeks Protection) Meningococcal B Vaccine: Consider Based On Risk (1 of 2 - Patient Seeks Protection) [facility] Start: 2017 Screening for Chlamy ihsan trachomatis CHLAMYDIA SCREEN [facility] Start: 2016 HIV screening HIV SCREENING DISCUSSION [facility] Start: 2016 HPV Vaccine (1 - 3-d ose series) HPV Vaccine (1 - 3-dose series) [facility] Start: 2015 PEDS TO ADULT TRANSI TION ANNUAL ASSESSMENT PEDS TO ADULT TRANSITION ANNUAL ASSESSMENT [facility] Start: 2013 Adult depression scr eening assessment DEPRESSION SCREENING [facility] Start: 2013 PEDS TO ADULT TRANSI TION INITIAL DISCUSSION PEDS TO ADULT TRANSITION INITIAL DISCUSSION [facility] Start: 2012 HPV VACCINE (1 - 2-d ose series) HPV VACCINE (1 - 2-dose series) [facility] Start: 2012 Vaccination for rhett n papillomavirus HPV VACCINE ADOL (1 - 2-dose series) [facility] Start: 2011 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 B: 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 (1 of 2 - Risk Bexsero 2-dose series) 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 B: Consider based on risk (1 of 2 - Risk Bexsero 2-dose series) [facility] Start: 2006 COVID-19 VACCINE (#1) COVID-19 VACCI NE (#1) [facility] Start: 2001 COVID-19 VACCINE (#1) COVID-19 VACCI NE (#1) [facility] Start: 2001 GONORRHEA SCREEN GONORRHEA SCREEN [facility] Start: 2001 Hepatitis C antibody , confirmatory test HEPATITIS C VIRUS SCREENING [facility] Bacteria identified in Urine by Culture BACTERIAL CULTURE, URINE Microbiology Routine Hematuria, unspecified type 02/02/2025 9:[address] [facility] Work Phone: BACTERIAL VAGINOSIS NAAT BACTERI AL VAGINOSIS NAAT Lab Routine Vaginal discomfort Encounter for screening for bacterial sexually transmitted disease 02/02/2025 9:02 AM EDT [facility] ADELITA/TRICHOMONAS NAAT ADELITA /TRICHOMONAS NAAT Lab Routine Vaginal discomfort Encounter for screening for bacterial sexually transmitted disease 02/02/2025 9:02 AM T [facility] Chlamydia trachomatis+Neisseria gonorrhoeae DNA [Presence] in Unspecified specimen by OLIVIA with probe detection GONORRHEA/CHLAMYDIA NAAT Lab Routine Vaginal discomfort Encounter for screening for bacterial sexually transmitted disease 02/02/2025 9:02 AM T [facility] End: 05-20-2022 Standard ECG [facility] Work Phone: Comment on above: One Time for 1 Occur rences starting 05/20/2022 until 05/20/2022 Immunizations Immunization Date Immunization Notes Care Provider Fa gemini 06-03-2020 influenza virus vacc ine, unspecified formulation Poncho Jaime APRN.CNP Work Phone: [facility] 04-07-2019 meningococcal polysaccharide (groups A, C, Y and W-135) diphtheria toxoid conjugate vaccine (MCV4P) Poncho Jaime APRN.CNP Work Phone: [facility] Work Phone: 03-30-2014 Meningococcal, MCV4, unspecified conjugate formulation(groups A, C, Y and W-135) Poncho Sheldon BELL CLEANER.[employer] Work Phone: [facility] Work Phone: 03-30-2014 tetanus toxoid, redu delfino diphtheria toxoid, and acellular pertussis vaccine, adsorbed Poncho Sheldon BELL CLEANER.[employer] Work Phone: [facility] Work Phone: 01-27-2007 diphtheria, tetanus toxoids and acellular pertussis vaccine Poncho Sheldon BELL CLEANER.[employer] Work Phone: [facility] Work Phone: 01-27-2007 measles, mumps and rubella virus vaccine Poncho Sheldon BELL CLEANER.[employer] Work Phone: [facility] Work Phone: 01-27-2007 poliovirus vaccine, inactivated Poncho Sheldon BELL CLEANER.[employer] Work Phone: [facility] Work Phone: 01-27-2007 varicella virus vaccine Bridget lawrence Sheldon BELL CLEANER.[employer] Work Phone: [facility] Work Phone: 12-28-2005 varicella virus vaccine Bridget lawrence Sheldon BELL CLEANER.[employer] Work Phone: [facility] Work Phone: 12-21-2002 diphtheria, tetanus toxoids and acellular pertussis vaccine Poncho Sheldon BELL CLEANER.CHEMICAL TEST ENGINEER Work Phone: [facility] Work Phone: 09-21-2002 haemophilus influenz ae type b vaccine, HbOC conjugate Poncho Sheldon BELL CLEANER.CHEMICAL TEST ENGINEER Work Phone: [facility] Work Phone: 07-15-2002 hepatitis B vaccine, pediatric or pediatric/adolescent dosage Poncho Sheldon BELL CLEANER.CHEMICAL TEST ENGINEER Work Phone: [facility] Work Phone: 07-15-2002 measles, mumps and rubella virus vaccine Poncho Sheldon BELL CLEANER.[employer] Work Phone: [facility] Work Phone: 07-15-2002 poliovirus vaccine, inactivated Poncho Sheldon BELL CLEANER.[employer] Work Phone: [facility] Work Phone: 01-22-2002 haemophilus influenz ae type b vaccine, HbOC conjugate Poncho Sheldon BELL CLEANER.[employer] Work Phone: [facility] Work Phone: 2001 diphtheria, tetanus toxoids and acellular pertussis vaccine Poncho Sheldon BELL CLEANER.[employer] Work Phone: [facility] Work Phone: 2001 hepatitis B vaccine, pediatric or pediatric/adolescent dosage Poncho Sheldon BELL CLEANER.[employer] Work Phone: [facility] Work Phone: 2001 diphtheria, tetanus toxoids and acellular pertussis vaccine Poncho Sheldon BELL CLEANER.[employer] Work Phone: [facility] Work Phone: 2001 haemophilus influenz ae type b vaccine, HbOC conjugate Poncho Sheldon BELL CLEANER.[employer] Work Phone: [facility] Work Phone: 2001 poliovirus vaccine, inactivated Poncho Sheldon BELL CLEANER.[employer] Work Phone: [facility] Work Phone: 2001 diphtheria, tetanus toxoids and acellular pertussis vaccine Poncho Sheldon BELL CLEANER.CHEMICAL TEST ENGINEER Work Phone: [facility] Work Phone: 2001 haemophilus influenz ae type b vaccine, HbOC conjugate Poncho Sheldon BELL CLEANER.CHEMICAL TEST ENGINEER Work Phone: [facility] Work Phone: 2001 poliovirus vaccine, inactivated Poncho Jaime BELL CLEANER.CHEMICAL TEST ENGINEER Work Phone: [facility] Work Phone: 2001 hepatitis B vaccine, pediatric or pediatric/adolescent dosage Ponchosudhir Jaime BELL CLEANER.CHEMICAL TEST ENGINEER Work Phone: [facility] Work Phone: Payers Date Payer Category Payer Self-pay [id number] 2022 Self-pay [id number] 2015 [employer] BLUE CARD PPO OOS [id number] 2015 Unknown [employer] BLUE CARD PPO OOS [id number] 2015-Present [phone] [address] [place] [id number] PPO [id number] 09-01-2015 Unknown [employer] BLUE CARD PPO OOS [id number] 09/01/2015-Present [phone] [place] [id number] PPO [id number] 09-01-2015 Unknown [id number] 2001 Unknown [id number] 2001 Unknown [id number] 2001 Unknown [id number] 2001 Unknown [id number] Unknown [id number] Unknown [id number] Unknown [id number] Unknown [id number] Unknown [id number] Unknown [id number] Unknown [id number] Unknown [id number] Unknown [id number] Social History Date Type Detail Facility Start: [facility] Start: 01-17-2022 End: 03-04-2024 Alcohol intake Current non-drinker of alcohol (finding) [facility] Start: 2001 Sex Assigned At Not on file [facility] Start: 01-07-2022 End: 05-20-2022 Exposure to SARS-CoV-2 (event) Not sure [facility] Tobacco smoking stat us NHIS Tobacco smoking consumption unknown [facility] Start: 10-19-2022 Tobacco use and exposure Smokeless tobacco non-user [facility] Work Phone: Start: 05-15-2023 End: 03-04-2024 History of Social function [facility] Start: 05-15-2023 End: 03-04-2024 Tobacco use panel [facility] Adult Depression Screening Assessment 0 [facility] Clinical Notes 01-17-2022 to 02-03-2025 Telephone Encounter - Maye Hernandez LPN - 02/03/2025 7:25 PM EDTTelephone Encounter - Maye Hernandez LPN - 02/03/2025 7:25 PM EDNatali Valadez APRN.PALMIRA - 02/02/2025 8:59 AM EDTAttachments Note Date & Type Note Facility 02-03-2025 Telephone encounter Note Patient notified.Maye Hernandez LPN [facility] 02-03-2025 Miscellaneous Notes Patient notified.Maye Hernandez LPN The urine culture has returned and has mixed microbes. Please follow up with PCP for repeat urine to ensure blood has resolved. Patient notified of results, verbalized understanding of instructions given. Ana Solano MA ----- Message from Lisa Banda APRN.CHEMICAL TEST ENGINEER sent at 02/03/2025 7:16 AM EDT ----- Please advise patient she tested positive for yeast and BV. She was prescribed fluconazole at visit for yeast, she should take this as directed. I have sent a prescription to her pharmacy for Flagyl to treat the BV. Avoid alcohol while on this medication. The urine culture is still processing. Lisa Banda APRN.CNP ----- Message from Lisa Banda APRN.CNP sent at 02/03/2025 7:16 AM EDT ----- Please advise patient she tested positive for yeast and BV. She was prescribed fluconazole at visit for yeast, she should take this as directed. I have sent a prescription to her pharmacy for Flagyl to treat the BV. Avoid alcohol while on this medication. The urine culture is still processing. Lisa Banda APRN.CNP documented in this encounter [facility] 02-03-2025 Telephone encounter Note The urine culture has returned and has mixed microbes. Please follow up with PCP for repeat urine to ensure blood has resolved. [facility] Work Phone: 02-03-2025 Telephone encounter Note Patient notified of results, verbalized understanding of instructions given. Ana Solano MA [facility] 02-03-2025 Telephone encounter Note ----- Message from Lisa Banda APRN.CNP sent at 02/03/2025 7:16 AM EDT ----- Please advise patient she tested positive for yeast and BV. She was prescribed fluconazole at visit for yeast, she should take this as directed. I have sent a prescription to her pharmacy for Flagyl to treat the BV. Avoid alcohol while on this medication. The urine culture is still processing. Lisa Banda APRN.CHEMICAL TEST ENGINEER [facility] 02-03-2025 Telephone encounter Note ----- Message from Lisa Banda APRN.CHEMICAL TEST ENGINEER sent at 02/03/2025 7:16 AM EDT ----- Please advise patient she tested positive for yeast and BV. She was prescribed fluconazole at visit for yeast, she should take this as directed. I have sent a prescription to her pharmacy for Flagyl to treat the BV. Avoid alcohol while on this medication. The urine culture is still processing. Lisa Banda APRN.CHEMICAL TEST ENGINEER [facility] 02-02-2025 Note HNO ID: [id number] Author: NATLAI ZEPEDA APRN.CHEMICAL TEST ENGINEER Service: ? Author Type: Nurse Practitioner Type: Progress Notes Filed: 02/02/2025 09:20 Note Text: [facility] Subjective Gloria Nettles is a 24 year old female. Patient presents with: Hematuria: x 2 days Hematuria Vaginal Soreness and Discharge: - Onset: 4 days ago. - Describes soreness in the vaginal area, particularly when wiping. just feels sore down there - Noticed a pink or slightly bloody appearance on toilet paper when wiping. - Reports a small amount of vaginal discharge. - Denies significant vaginal pruritus. - Denies dysuria, back pain, abdominal pain, fever, chills, nausea, emesis, or diarrhea. Denies skin rash or lesions - LMP: 01/16 to 01/21. - Sexually active; no recent change in partners. PAST MEDICAL HISTORY Diagnosis Date Intractable vomiting with nausea, unspecified vomiting type Marijuana user Noncompliance with treatment plan 11/24/2020 placed on care plan by [facility] ED for excessive visits PAST SURGICAL HISTORY Procedure Laterality Date COLONOSCOPY - DIAGNOSTIC 10/20/2020 EGD 10/20/2020 NONE ALLERGIES Patient has no known allergies. MEDICATIONS fluconazole (DIFLUCAN) 150 mg tablet Take 1 tablet by mouth one time only for 1 dose. dicyclomine (BENTYL) 20 mg tablet TAKE 1 TABLET BY MOUTH THREE TIMES A DAY NEEDED FOR ABDOMINAL DISCOMFORT hydrOXYzine pamoate (VISTARIL) 25 mg capsule Take 25 mg by mouth three times a day as needed. sertraline (ZOLOFT) 50 mg tablet Take 0.5 tablets by mouth once daily for 14 days, THEN 1 tablet once daily. ondansetron orally disintegrating (ZOFRAN ODT) 4 mg disintegrating tablet Take 1 tablet by mouth every 8 hours as needed. FAMILY HISTORY Problem Relation Age of Onset Thyroid Mother COPD Father Heart Maternal Grandmother Thyroid Maternal Grandmother Social History Tobacco Use Smoking status: Never Smokeless tobacco: Never Substance Use Topics Alcohol use: No Drug use: Not Currently Types: Marijuana Review of Systems Genitourinary: Positive for hematuria. Constitutional: (-) fever, (-) chills Gastrointestinal: (-) abdominal pain, (-) nausea, (-) vomiting, (-) diarrhea Genitourinary: (+) vaginal pain, (+) vaginal spotting, (+) vaginal discharge, (+) vaginal pruritus, (-) dysuria Musculoskeletal: (-) back pain Objective BP 108/62 Pulse 78 Temp 36.2 ?C (97.1 ?F) Resp 16 Wt 52.7 kg (116 lb 2.9 oz) LMP 10/01/2022 (Exact Date) SpO2 97% BMI 19.94 kg/m? Physical Exam Vitals and nursing note reviewed. Constitutional: General: She is not in acute distress. Appearance: Normal appearance. She is normal weight. She is not ill-appearing, toxic-appearing or diaphoretic. HENT: Head: Normocephalic and atraumatic. Right Ear: Ear canal and external ear normal. Left Ear: Ear canal and external ear normal. Nose: Nose normal. No congestion or rhinorrhea. Mouth/Throat: Mouth: Mucous membranes are moist. Pharynx: No oropharyngeal exudate or posterior oropharyngeal erythema. Eyes: General: Right eye: No discharge. Left eye: No discharge. Extraocular Movements: Extraocular movements intact. Conjunctiva/sclera: Conjunctivae normal. Pupils: Pupils are equal, round, and reactive to light. Cardiovascular: Rate and Rhythm: Normal rate and regular rhythm. Pulses: Normal pulses. Heart sounds: Normal heart sounds. No murmur heard. No friction rub. Pulmonary: Effort: Pulmonary effort is normal. No respiratory distress. Breath sounds: Normal breath sounds. No stridor. No wheezing, rhonchi or rales. Chest: Chest wall: No tenderness. Abdominal: General: Abdomen is flat. There is no distension. Palpations: Abdomen is soft. There is no mass. Tenderness: There is no abdominal tenderness. There is no right CVA tenderness, left CVA tenderness, guarding or rebound. Hernia: No hernia is present. Genitourinary: Comments: Declines pelvic exam Musculoskeletal: General: No swelling, tenderness, deformity or signs of injury. Normal range of motion. Cervical back: Normal range of motion and neck supple. No rigidity. Right lower leg: No edema. Left lower leg: No edema. Lymphadenopathy: Cervical: No cervical adenopathy. Skin: General: Skin is warm and dry. Capillary Refill: Capillary refill takes less than 2 seconds. Coloration: Skin is not jaundiced or pale. Findings: No bruising, erythema, lesion or rash. Neurological: General: No focal deficit present. Mental Status: She is alert and oriented to person, place, and time. Cranial Nerves: No cranial nerve deficit. Sensory: No sensory deficit. Motor: No weakness. Coordination: Coordination normal. Gait: Gait normal. Psychiatric: Mood and Affect: Mood normal. Behavior: Behavior normal. Thought Content: Thought content normal. Judgment: Judgment normal. General: No acute distress. {1. Hematuria, unspecified type (R31 (more content not included)... [facility] 02-02-2025 History of Present illness Narrative [facility] Gloria Nettles is a 24 year old female. Patient presents with: Hematuria: x 2 days Hematuria Vaginal Soreness and Discharge: - Onset: 4 days ago. - Describes soreness in the vaginal area, particularly when wiping. just feels sore down there - Noticed a pink or slightly bloody appearance on toilet paper when wiping. - Reports a small amount of vaginal discharge. - Denies significant vaginal pruritus. - Denies dysuria, back pain, abdominal pain, fever, chills, nausea, emesis, or diarrhea. Denies skin rash or lesions - LMP: 01/16 to 01/21. - Sexually active; no recent change in partners. PAST MEDICAL HISTORY Diagnosis Date Intractable vomiting with nausea, unspecified vomiting type Marijuana user Noncompliance with treatment plan 11/24/2020 placed on care plan by [facility] ED for excessive visits PAST SURGICAL HISTORY Procedure Laterality Date COLONOSCOPY - DIAGNOSTIC 10/20/2020 EGD 10/20/2020 NONE ALLERGIES Patient has no known allergies. MEDICATIONS fluconazole (DIFLUCAN) 150 mg tablet Take 1 tablet by mouth one time only for 1 dose. dicyclomine (BENTYL) 20 mg tablet TAKE 1 TABLET BY MOUTH THREE TIMES A DAY NEEDED FOR ABDOMINAL DISCOMFORT hydrOXYzine pamoate (VISTARIL) 25 mg capsule Take 25 mg by mouth three times a day as needed. sertraline (ZOLOFT) 50 mg tablet Take 0.5 tablets by mouth once daily for 14 days, THEN 1 tablet once daily. ondansetron orally disintegrating (ZOFRAN ODT) 4 mg disintegrating tablet Take 1 tablet by mouth every 8 hours as needed. FAMILY HISTORY Problem Relation Age of Onset Thyroid Mother COPD Father Heart Maternal Grandmother Thyroid Maternal Grandmother Social History Tobacco Use Smoking status: Never Smokeless tobacco: Never Substance Use Topics Alcohol use: No Drug use: Not Currently Types: Marijuana Review of Systems Genitourinary: Positive for hematuria. Constitutional: (-) fever, (-) chills Gastrointestinal: (-) abdominal pain, (-) nausea, (-) vomiting, (-) diarrhea Genitourinary: (+) vaginal pain, (+) vaginal spotting, (+) vaginal discharge, (+) vaginal pruritus, (-) dysuria Musculoskeletal: (-) back pain Objective BP 108/62 Pulse 78 Temp 36.2 C (97.1 F) Resp 16 Wt 52.7 kg (116 lb 2.9 oz) LMP 10/01/2022 (Exact Date) SpO2 97% BMI 19.94 kg/m Physical Exam Vitals and nursing note reviewed. Constitutional: General: She is not in acute distress. Appearance: Normal appearance. She is normal weight. She is not ill-appearing, toxic-appearing or diaphoretic. HENT: Head: Normocephalic and atraumatic. Right Ear: Ear canal and external ear normal. Left Ear: Ear canal and external ear normal. Nose: Nose normal. No congestion or rhinorrhea. Mouth/Throat: Mouth: Mucous membranes are moist. Pharynx: No oropharyngeal exudate or posterior oropharyngeal erythema. Eyes: General: Right eye: No discharge. Left eye: No discharge. Extraocular Movements: Extraocular movements intact. Conjunctiva/sclera: Conjunctivae normal. Pupils: Pupils are equal, round, and reactive to light. Cardiovascular: Rate and Rhythm: Normal rate and regular rhythm. Pulses: Normal pulses. Heart sounds: Normal heart sounds. No murmur heard. No friction rub. Pulmonary: Effort: Pulmonary effort is normal. No respiratory distress. Breath sounds: Normal breath sounds. No stridor. No wheezing, rhonchi or rales. Chest: Chest wall: No tenderness. Abdominal: General: Abdomen is flat. There is no distension. Palpations: Abdomen is soft. There is no mass. Tenderness: There is no abdominal tenderness. There is no right CVA tenderness, left CVA tenderness, guarding or rebound. Hernia: No hernia is present. Genitourinary: Comments: Declines pelvic exam Musculoskeletal: General: No swelling, tenderness, deformity or signs of injury. Normal range of motion. Cervical back: Normal range of motion and neck supple. No rigidity. Right lower leg: No edema. Left lower leg: No edema. Lymphadenopathy: Cervical: No cervical adenopathy. Skin: General: Skin is warm and dry. Capillary Refill: Capillary refill takes less than 2 seconds. Coloration: Skin is not jaundiced or pale. Findings: No bruising, erythema, lesion or rash. Neurological: General: No focal deficit present. Mental Status: She is alert and oriented to person, place, and time. Cranial Nerves: No cranial nerve deficit. Sensory: No sensory deficit. Motor: No weakness. Coordination: Coordination normal. Gait: Gait normal. Psychiatric: Mood and Affect: Mood normal. Behavior: Behavior normal. Thought Content: Thought content normal. Judgment: Judgment normal. General: No acute distress. {1. Hematuria, unspecified type (R31.9) Noted pink on tissue when wiping Urine dip + hematuria Will send urine for culture 2. Vaginal discomfort (N94.9) - Hematuria noted with trace blood in urine; no dysuria, urgency, or frequency reported. - Vaginal discomfort described as soreness with slight vaginal discharge; no significant pruritus. - Differential diagnosis includes yeast infection; prescribed Diflucan. Declines pelvic ezam - Patient to perform self-swab for further evaluation. 3. Encounter for screening for bacterial sexually transmitted disease (Z11.3) - Discussed the importance of screening for gonorrhea and chlamydia. - Patient agreed to self-swab for STD testing. Will await results to guide treatment and Recording using [employer] software for draft documentation of the visit was discussed with the patient/authorized lifeline representatives; all questions welcomed and answered. Patient/authorized lifeline representatives agreed to proceed MDM Procedures documented in this encounter [facility] 03-04-2024 Instructions Poncho Jaime APRN.PALMIRA - 03/04/2024 9:53 AM EDT Schedule with Nichol-psychiatry Continue your current medications. We'll add the Zoloft for you to take in the evenings. documented in this encounter [facility] 03-04-2024 Note HNO ID: [id number] Author: PONCHO JAIME APRN.CNP Service: ? Author Type: Nurse Practitioner Type: Progress Notes Filed: 03/04/2024 18:30 Note Text: Chief Complaint Patient presents with: ER F/U: Abd pain, seeing gastro next month, anxiety HPI Gloria Nettles is a 23 year old female who presents here today for Above Complaints.. [facility] ER on 02/27 with abdominal pain and anxiety. Is seeing Dr. Adkins GI at [facility]. Stress/anxiety-work has been frustrating lately. Has [...] somewhat and this lasts a few hours. [id number] like to take this a lot because [...] plan 11/24/2020 placed on care plan by [facility] ED for excessive visits Previous Surgical [...] Seeks Protection) Never done GC (Gonorrhea) Screening () Never done Hepatitis C Screening Never done HIV Screening Never done Chlamydia Screening (-) Never done Cervical Cancer Screening Never done Covid-19 Vaccine( - season) Never done Behavioral Health Screening Never done DTaP,Tdap,Td Vaccine(7 - Td or Tdap) due on 03/30/2024 Influenza Vaccine(1) due on 04/19/2024 Hepatitis B Vaccine Completed Data reviewed Previous records, office notes ASSESSMENT/PLAN: 1. Anxiety - ICD9: 300.00, ICD10: F41.9 (primary diagnosis) Continue with plan to see Dr. Adkins with [facility] GI. - SERTRALINE 50 MG TABLET - CONSULT TO PSYCHIATRY 2. Abdominal cramping - ICD9: 789.00, ICD10: R10.9 Continue with plan to see Dr. Adkins with [facility] GI. - SERTRALINE 50 MG TABLET - CONSULT TO PSYCHIATRY 3. Nausea and vomiting, unspecified vomiting type - ICD9: 787.01, ICD10: R11.2 Continue with plan to see Dr. Adkins with [facility] GI. - SERTRALINE 50 MG TABLET - CONSULT TO PSYCHIATRY Poncho Jaime APRN.[facility] 03-04-2024 History of Present illness Narrative Chief Complaint Patient presents with: ER F/U: Abd pain, seeing gastro next month, anxiety HPI Gloria Nettles is a 23 year old female who presents here today for Above Complaints.. [facility] ER on 02/27 with abdominal pain and anxiety. Is seeing Dr. Adkins GI at [facility]. Stress/anxiety-work has been frustrating lately. Has [...] somewhat and this lasts a few hours. [id number] like to take this a lot because [...] plan 11/24/2020 placed on care plan by [facility] ED for excessive visits Previous Surgical [...] with plan to see Dr. Adkins with [facility] GI. - SERTRALINE 50 MG TABLET - CONSULT TO PSYCHIATRY 2. Abdominal cramping - ICD9: 789.00, ICD10: R10.9 Continue with plan to see Dr. Adkins with [facility] GI. - SERTRALINE 50 MG TABLET - CONSULT TO PSYCHIATRY 3. Nausea and vomiting, unspecified vomiting type - ICD9: 787.01, ICD10: R11.2 Continue with plan to see Dr. Adkins with [facility] GI. - SERTRALINE 50 MG TABLET - CONSULT TO PSYCHIATRY Poncho Jaime APRN.CHEMICAL TEST ENGINEER documented in this encounter [facility] 10-22-2022 History of Present illness Narrative CC: [...] home. She is renting a home in [place]. 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 She is unsure what her future goals in life are- unsure if will go to school or find another job etc. Does have friend support. PAST MEDICAL HISTORY Diagnosis Date Intractable vomiting with nausea, unspecified vomiting type Marijuana user Noncompliance with treatment plan 11/24/2020 placed on care plan by [facility] ED for excessive visits PAST SURGICAL [...] diet of 1000 mg/day for under 50, 2307-1857 mg/day for 50+ 2. Anxiety - ICD9: [...] agreed with the plan. Wilfred Egan DO [address] [place] [address] documented in this encounter [facility] 05-20-2022 Hospital Discharge instructions Shaun Bean MD - 05/20/2022 5:40 AM EDT You came to the Emergency Department today for anxiety. You were given Ativan with improvement in your symptoms as well as Compazine for nausea. The following attachments cannot be sent through Care Everywhere.Anxiety Disorders: General Info (Turkish)documented in this encounter [facility] 05-20-2022 Emergency department Note Patient c/o anxiety and panic attacks. Patient states that panic attack is getting better but is not going away. Patient concerned that her anxiety is keeping friends awake. Patient denies SI/HI [facility] 05-20-2022 Emergency department Note Patient c/o anxiety and panic attacks. Patient states that panic attack is getting better but is not going away. Patient concerned that her anxiety is keeping friends awake. Patient denies SI/HI documented in this encounter [facility] 02-01-2022 History of Present illness Narrative Behavioral Health Social Work Assessment Patient was seen for an initial evaluation. All information is from patient report except when noted. This evaluation is NOT intended for forensic, disability, or child custody purposes. Informed consent was discussed and signed by the patient. -Pt was sent mychart msg with consent for tx -mychart msg viewed [facility] Assessment: Virtual No Show 9:10am Pt had not joined visit -[facility] attempted to contact Pt -no answer -left vm, if available to join visit please join visit, SW will remain on visit for additional 15 min, if unable please call to reschedule appt 9:50am -no response from Pt -sent mychart msg to reschedule appt, -included no show ltr Patient identified for [facility] from: PCP (Poncho Jaime CNP) Reason for referral: [facility] Assessment (failed mental health tx,depression/anxiety) [facility] encounter type: MyChart Message Attempts to Outreach: 5 attempts Referral [...] N/A BUDDY Brenner documented in this encounter [facility] 01-17-2022 Miscellaneous Notes BEHAVIORAL HEALTH SOCIAL WORK CONSULT NOTE Service Date: January 17, 2022 Patient was identified by name and Patient: Gloria Nettles [address] [facility] [phone] (home) [phone] (cell) PCP: Wilfred Egan, DO [address] [facility] [id number] Patient identified for [facility] from: PCP (Poncho Jaime CNP) Reason for referral: [facility] Assessment (failed mental health tx,depression/anxiety) [facility] encounter type: Telephone Encounter Assessment: [facility] received a consult from Poncho Jaime CNP, for assessment failed mental health tx, depression/anxiety [facility] reviewed Pt's chart/insurance [facility] contacted Pt -scheduled 02-01-22 at 9am virtual -sent mychart msg with appt info, consent for tx, PHQ9 [...] -Patient advised of treatment options available at [facility]. Patient was informed that they will be moving on for further evaluation if seeking treatment within the [facility] system. Reason for External Referrals : N/A Intervention: Supportive Listening Scheduled Assessment Offered virtual visit Resources Provided: Further evaluation and assessment Virtual Visit Time Spent: 15 minutes BUDDY Brenner documented in this encounter [facility] 01-17-2022 Instructions Poncho Jaime APRN.PALMIRA - 01/17/2022 8:54 AM EDT Start on Cymbalta. Take the Ativan (lorazepam) as needed for severe anxiety/depression. Take the hycosamine as needed for cramping. Take Zofran as needed for the nausea/vomiting. documented in this encounter [facility] 01-17-2022 History of Present illness Narrative Chief [...] not have heartburn. Has a job at [employer]. Has been off work the past 2 days because has not been feeling well. They are pretty understanding with her. Is embarrassing and frustrating. Multiple ER visits. Extensive GI workup. Past medical history, appointments, medications, allergies reviewed. Has stopped taking the Zoloft. Did IOP program at [facility]. Was then prescribed Remeron-felt poorly on this [...] plan 11/24/2020 placed on care plan by [facility] ED for excessive visits Previous Surgical [...] DEPRESSION SCREENING Never done GC (GONORRHEA) SCREENING (-) Never done HEPATITIS C SCREENING Never done [...] HEALTH ADULT - LORAZEPAM 0.5 MG TABLET Poncho Jaime APRN.CNP PDMP website checked and validated. All prescriptions have been APPROPRIATELY filled. No suspicious activity was identified. 01/17/2022 by Poncho Jaime CNP. Greater than 50% of 40-minute visit spent face to face with patient in counseling and education. documented in this encounter [facility] Evaluation note Diagnosis Major depressive disorder, remission status unspecified, unspecified whether recurrent- Primary Anxiety Anxiety state, unspecified Chronic superficial gastritis without bleeding Atrophic gastritis without mention of hemorrhage Lower abdominal pain Abdominal pain, other specified site [facility] Diagnosis No-show for appointment- Primary [facility] Anxiety- Primary Anxiety state, unspecified [facility] Diagnosis Well adult exam- Primary Routine general medical examination at a health care facility Anxiety Anxiety state, unspecified Thyromegaly Goiter, unspecified [facility] Diagnosis Anxiety- Primary Anxiety state, unspecified Abdominal cramping Abdominal pain, unspecified site Nausea and vomiting, unspecified vomiting type [facility] Diagnosis Hematuria, unspecified type- Primary Vaginal discomfort Unspecified symptom associated with female genital organs Encounter for screening for bacterial sexually transmitted disease documented in this encounter [facility] Summary Purpose Family History No Family History Records FoundNo Family History Records FoundNo Family History Records FoundNo Family History Records FoundNo Family History Records Found Advance Directives No Advanced Directives Records FoundDocuments on File Type Date 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 Advance Directive(s) 10/20/2020 10:47 AM Reason for Referral Specialty Diagnoses / Procedures Referred By Contac t Referred To Contact Procedures ECG Saavge Scott MD [address] [place] [address] Referral ID Status Reason Start Date Expiration Date V isits Requested Visits Authorized [id number] New Request 05/20/2022 06/14/2023 1 1 Specialty Diagnoses / Procedures Referred By Contac t Referred To Contact Diagnoses Anxiety Abdominal cramping Nausea and vomiting, unspecified vomiting type Procedures CONSULT TO PSYCHIATRY OFFICE/OUTPATIENT NEW HIGH MDM 60 MINUTES Poncho Jaime, BELL CLEANER.CHEMICAL TEST ENGINEER [address] [place] [address] Referral ID Status Reason Start Date Expiration Date Visits Requested Visits Authorized [id number] Pending Review PCP Requested Referral 03/04/2024 03/04/2025 1 1 Additional Source Comments INFORMATION SOURCE (unrecogn ized section and content) DATE CREATED AUTHOR 10/27/2020 [facility] DATE CREATED AUTHOR AUTHOR'S ORGANIZ ATION 06/14/2022 [facility] DATE CREATED AUTHOR AUTHOR'S ORGANIZ ATION 05/23/2023 [facility] DATE CREATED AUTHOR AUTHOR'S ORGANIZ ATION 02/04/2025 [facility] DATE CREATED AUTHOR AUTHOR'S ORGANIZ ATION 05/14/2025 [facility] Source Comments (unrecognize d section and content) In the event this informatio n is protected by the Federal Confidentiality of Alcohol and Drug Abuse Patient Records regulations: The Federal rules restrict any use of the information to criminally investigate or prosecute any alcohol or drug abuse patient.[facility] the event this information is protected by the Federal Confidentiality of Alcohol and Drug Abuse Patient Records regulations: The Federal rules restrict any use of the information to criminally investigate or prosecute any alcohol or drug abuse patient.[facility] the event this information is protected by the Federal Confidentiality of Alcohol and Drug Abuse Patient Records regulations: The Federal rules restrict any use of the information to criminally investigate or prosecute any alcohol or drug abuse patient.[facility] the event this information is protected by the Federal Confidentiality of Alcohol and Drug Abuse Patient Records regulations: The Federal rules restrict any use of the information to criminally investigate or prosecute any alcohol or drug abuse patient.[facility] the event this information is protected by the Federal Confidentiality of Alcohol and Drug Abuse Patient Records regulations: The Federal rules restrict any use of the information to criminally investigate or prosecute any alcohol or drug abuse patient.[facility] the event this information is protected by the Federal Confidentiality of Alcohol and Drug Abuse Patient Records regulations: The Federal rules restrict any use of the information to criminally investigate or prosecute any alcohol or drug abuse patient.[facility] HospitalIn the event this information is protected by the Federal Confidentiality of Alcohol and Drug Abuse Patient Records regulations: The Federal rules restrict any use of the information to criminally investigate or prosecute any alcohol or drug abuse patient.[facility] HospitalIn the event this information is protected by the Federal Confidentiality of Alcohol and Drug Abuse Patient Records regulations: The Federal rules restrict any use of the information to criminally investigate or prosecute any alcohol or drug abuse patient.[facility] Reason for Visit (unrecogniz ed section and content) Reason Comments Anxiety Depression Abdominal Pain Vomiting Reason Comments Consult Initial [facility] Pt Outr each Reason Comments Consult [facility] Assessment Virt l Specialty Diagnoses / Procedures Referred By Contac t Referred To Contact Psychiatry / ADULT PSYCHOLOGY Diagnoses 1st eval Procedures VIDEO PSYC/PSYL Poncho Delgado, BELL CLEANER.CHEMICAL TEST ENGINEER [address] [place] [address] Bowen Leroy LISW [address] [place] [address] Referral ID Status Reason Start Date Expiration Date V isits Requested Visits Authorized [id number] Authorized 08/19/2021 08/18/2022 99 99 Reason Comments Anxiety Reason Comments Hospital F/U Reason Comments ER F/U Abd pain, seeing gas tro next month, anxiety Reason Comments Hematuria x 2 days Care Teams (unrecognized sec tion and content) 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 Relationship Specialty Start Date End Date Wilfred Egan DO [address] [place] [address] PCP - General Family Practice 09/05/15 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 Relationship Specialty Start Date End Date Wilfred Egan DO [address] [place] [address] PCP - General Family Practice 09/05/15 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 Relationship Specialty Start Date End Date Wilfred Egan DO [address] [place] [address] PCP - General Family Practice 09/05/15 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 Relationship Specialty Start Date End Date Wilfred Egan DO [address] [place] [address] PCP - General Family Medicine 09/05/15 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 Relationship Specialty Start Date End Date Wilfred Egan DO [address] [place] [address] PCP - General Family Medicine 09/05/15 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 Relationship Specialty Start Date End Date Wilfred Egan DO [address] [place] [address] PCP - General Family Medicine 09/05/15 Poncho Jaime APRN.CHEMICAL TEST ENGINEER [address] [place] [address] [facility] 07/26/24 Olivia Sin APRN.CHEMICAL TEST ENGINEER [address] [place], [place] [address] [facility] 02/01/25 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 Relationship Specialty Start Date End Date Wilfred Egan DO [address] [place] [address] PCP - General Family Medicine 09/05/15 Poncho Jaime APRN.CHEMICAL TEST ENGINEER [address] [place] [address] [facility] 07/26/24 Olivia Sin APRN.CHEMICAL TEST ENGINEER [address] [place], [place] [address] [facility] 02/01/25 Scheduled Active and Recently Administ ered Medications (unrecognized section and content) Medication Order 05/18/2022 05/19/2022 05/20/2022 LORazepam (ATIVAN) tablet 2 mg (COMPLETED) 2 mg, Oral, ONCE, 1 dose, On 05/20/22 at 0515 0446 (Given - Provid er: Db Cooper, JENIFER) prochlorperazine (COMPAZINE) tablet 5 mg (COMPLETED) 5 [...] BE BASED ON THE PRIMARY CLINICAL RECORDS. [facility] [employer] [facility]. provides no warranty or guarantee of the accuracy or completeness of information in this document.
--- OUTSIDE RECORDS SUMMARY | 2025-05-21 15:58 | XMS RPT_ITS | CCD ---
Author Organization [facility] Care Team Providers Care Janitor Head Name Role Phone Avtar [place] Wilfred L [...] DO Wilfred L Primary Care Provider Sheldon LEATHER SCRUBBER.Poncho CHAVIS Unavailable Merrick LEATHER SCRUBBER.Olivia CHAVIS Unavailable EGAN, WILFRED L Primary Care Unavailable NATALI ZEPEDA Attending Unavailable PONCHO JAIME Attending Unavailable EGAN WILFRED L Primary Care Unavailable Zafar Marrero Attending Unavailable Egan, Wilfred Primary Care Unavailable Fay De Los Santos Attending Unavailable Egan, Wilfred Primary Care Unavailable Ignacio Murphy Attending Unavailable Egan, Wilfred Primary Care Unavailable Kyleigh Joseph Attending Unavailable Kyleigh Joseph Referring Unavailable Egan, Wilfred [...] on above: Take 1 capsule by mo [facility] once daily. fluconazole 150 mg oral tablet [...] Comment on above: Take 1 tablet by [facility] every 8 hours as needed. sertraline [...] Results Test Name Value Interpretation Reference Range [facility] [id number] 05-13-2025 ABO and Rh group Nom (Bld) Blood group A Rh(D) positive Normal [facility] Comment on above: Performed By: #### L 100.0100, L500.4050, L501.2450 #### [facility] [address] [place], [address] CBC W/Diff, Automatedon 04-20 Absolute Lymph 0.56 X10 3/uL Low 0.83-4.51 [facility] Comment on above: Performed By: #### L 100.0100, L500.4050, L501.2450 #### [facility] [address] [place], [address] Absolute Neut 13.3 X10 3/uL High 2.0-7.7 [facility] Comment on above: Performed By: #### L 100.0100, L500.4050, L501.2450 #### [facility] [address] [place], [address] Basophils/100 WBC (Bld) 0.1 % Normal 0-1 [facility] Comment on above: Performed By: #### L 100.0100, L500.4050, L501.2450 #### [facility] [address] [place], [address] Eosinophils/100 WBC (Bld) 0.0 % Normal 0-5 [facility] Comment on above: Performed By: #### L 100.0100, L500.4050, L501.2450 #### [facility] [address] [place], [address] Erythrocyte distribution width (RBC) [Ratio] 12.1 % Normal 11.6-14.6 [facility] Comment on above: Performed By: #### L 100.0100, L500.4050, L501.2450 #### [facility] [address] [place], [address] Hematocrit (Bld) [Volume fraction] 35.4 % Low 37-47 [facility] Comment on above: Performed By: #### L 100.0100, L500.4050, L501.2450 #### [facility] [address] [place], [address] Hemoglobin (Bld) [Mass/Vol] 13.2 g/dL Normal 12.0-15.0 [facility] Comment on above: Performed By: #### L 100.0100, L500.4050, L501.2450 #### [facility] [address] [place], [address] IG% 0.400 Normal 0.0-0.9 [facility] Comment on above: Result Comment: IG% - Immature Granulocytes (promyelocytes, myelocytes and metamyelocytes) > 1% indicates that a LEFT SHIFT is Present. Performed By: #### L 100.0100, L500.4050, L501.2450 #### [facility] [address] [place], [address] Lymphocytes/100 WBC (Bld) 4.0 % Low 19-41 [facility] Comment on above: Performed By: #### L 100.0100, L500.4050, L501.2450 #### [facility] [address] [place], [address] MCH (RBC) [Entitic mass] 32.6 pg High 27.0-32.0 [facility] Comment on above: Performed By: #### L 100.0100, L500.4050, L501.2450 #### [facility] [address] [place], [address] MCHC (RBC) [Mass/Vol] 37.3 g/dL High 32-36 [facility] Comment on above: Performed By: #### L 100.0100, L500.4050, L501.2450 #### [facility] [address] [place], [address] MCV (RBC) [Entitic vol] 87.4 fL Normal 81-99 [facility] Comment on above: Performed By: #### L 100.0100, L500.4050, L501.2450 #### [facility] [address] [place], [address] Monocytes/100 WBC (Bld) 1.1 % Normal 0-10 [facility] Comment on above: Performed By: #### L 100.0100, L500.4050, L501.2450 #### [facility] [address] [place], [address] Neutrophils/100 WBC (Bld) 94.4 % High 47-70 [facility] Comment on above: Performed By: #### L 100.0100, L500.4050, L501.2450 #### [facility] [address] [place], [address] Nucleated RBC (Bld) [#/Vol] 0 10*3/uL Normal 0-5 [facility] Comment on above: Performed By: #### L 100.0100, L500.4050, L501.2450 #### [facility] [address] [place], [address] Platelet mean volume (Bld) [Entitic vol] 9.7 fL Normal 6.2-12.0 [facility] Comment on above: Performed By: #### L 100.0100, L500.4050, L501.2450 #### [facility] [address] [place], [address] Platelets (Bld) [#/Vol] 315 10*3/uL Normal 150-450 [facility] Comment on above: Performed By: #### L 100.0100, L500.4050, L501.2450 #### [facility] [address] [place], [address] RBC (Bld) [#/Vol] 4.05 10*6/uL Low 4.2-5.4 [facility] Comment on above: Performed By: #### L 100.0100, L500.4050, L501.2450 #### [facility] [address] [place], [address] RDW SD 38.6 fl Normal 35.1-43.9 [facility] Comment on above: Performed By: #### L 100.0100, L500.4050, L501.2450 #### [facility] [address] [place], [address] WBC (Bld) [#/Vol] 14.1 10*3/uL High 4.4-11.0 [facility] Comment on above: Performed By: #### L 100.0100, L500.4050, L501.2450 #### [facility] [address] [place], [address] Comprehensive Metabolic Prof ilkira 05-13-2025 Albumin [Mass/Vol] 4.7 g/dL Normal 3.5-5.0 [facility] Comment on above: Performed By: #### L 100.0100, L500.4050, L501.2450 #### [facility] [address] [place], [address] Albumin/Globulin [Mass ratio] 1.8 {ratio} Normal 0.9-2.4 [facility] Comment on above: Performed By: #### L 100.0100, L500.4050, L501.2450 #### [facility] [address] [place], [address] ALK PHOS 80 U/L Normal 35-104 [facility] Comment on above: Performed By: #### L 100.0100, L500.4050, L501.2450 #### [facility] [address] [place], [address] ALT [Catalytic activity/Vol] 12 U/L Normal <=34 [facility] Comment on above: Performed By: #### L 100.0100, L500.4050, L501.2450 #### [facility] [address] [place], [address] AST [Catalytic activity/Vol] 19 U/L Normal <=31 [facility] Comment on above: Performed By: #### L 100.0100, L500.4050, L501.2450 #### [facility] [address] [place], [address] Bilirubin [Mass/Vol] 0.71 mg/dL Normal 0.00-1.30 [facility] Comment on above: Performed By: #### L 100.0100, L500.4050, L501.2450 #### [facility] [address] [place], [address] BUN/CRE 14.3 RATIO Normal 10-20 [facility] Comment on above: Performed By: #### L 100.0100, L500.4050, L501.2450 #### [facility] [address] [place], [address] Calcium [Mass/Vol] 9.4 mg/dL Normal 7.6-11.0 [facility] Comment on above: Performed By: #### L 100.0100, L500.4050, L501.2450 #### [facility] [address] [place], [address] Chloride [Moles/Vol] 106 mmol/L Normal 98-108 [facility] Comment on above: Performed By: #### L 100.0100, L500.4050, L501.2450 #### [facility] [address] [place], [address] CO2 [Moles/Vol] 18.0 mmol/L Low 21.0-32.0 [facility] Comment on above: Performed By: #### L 100.0100, L500.4050, L501.2450 #### [facility] [address] [place], [address] Creatinine [Mass/Vol] 0.63 mg/dL Low 0.70-1.20 [facility] Comment on above: Performed By: #### L 100.0100, L500.4050, L501.2450 #### [facility] [address] [place], [address] ECRCL 108.97 ml/min Normal 50-250 [facility] Comment on above: Performed By: #### L 100.0100, L500.4050, L501.2450 #### [facility] [address] [place], [address] GAP 15 Normal 5-15 [facility] Comment on above: Performed By: #### L 100.0100, L500.4050, L501.2450 #### [facility] [address] [place], [address] GFR/1.73 sq M.predicted among non-blacks MDRD (S/P/Bld) [Vol rate/Area] 128 mL/min/{1.73_m2} Normal >60 [facility] Comment on above: Result Comment: mL/m in/1.73m2 CKD-EPI Creatinine Equation (2020) Performed By: #### L 100.0100, L500.4050, L501.2450 #### [facility] [address] [place], [address] Globulin (S) [Mass/Vol] 2.6 g/dL Normal 2.2-4.2 [facility] Comment on above: Performed By: #### L 100.0100, L500.4050, L501.2450 #### [facility] [address] [place], [address] Glucose [Mass/Vol] 117 mg/dL High 70-99 [facility] Comment on above: Performed By: #### L 100.0100, L500.4050, L501.2450 #### [facility] [address] [place], [address] Potassium [Moles/Vol] 3.5 mmol/L Normal 3.3-5.1 [facility] Comment on above: Performed By: #### L 100.0100, L500.4050, L501.2450 #### [facility] [address] [place], [address] Sodium [Moles/Vol] 139 mmol/L Normal 133-145 [facility] Comment on above: Performed By: #### L 100.0100, L500.4050, L501.2450 #### [facility] [address] [place], [address] T PROT 7.3 g/dL Normal 5.9-8.4 [facility] Comment on above: Performed By: #### L 100.0100, L500.4050, L501.2450 #### [facility] [address] [place], [address] Urea nitrogen [Mass/Vol] 9 mg/dL Normal 4-19 [facility] Comment on above: Performed By: #### L 100.0100, L500.4050, L501.2450 #### [facility] [address] [place], [address] Emergency Department Summary on 05-13-2025 Emergency Department Summary [facility] Medical Records Department [address] [place] [address] Emergency Department Summary 05/13/25 MR#: [id number] Acct: [id number] Name: GLORIA NETTLES TOBIAS Rep #: [id number] : 2000 24 From: Fay De Los [...] trimester. Has an appointment to see her [employer]PERATOR and confirm next week through [place]. Notes that she is going to multiple stressors including relationships with the father, home life issues and she just told her mother about the today. No fever or chills reported but has had some sweating. No blood in vomit or stool appreciated. No other complaints or concerns at this time [facility] Medical History Marijuana use Panic disorder Major [...] 0 current occupational status: employed current occupation: [employer] current occupational exposures/hazards: No pets and animals: [...] times per week duration: < 15 minutes/day dustin/tenriism: None seatbelt use: always do you feel safe at home: Yes additional social history: BF: [employer] Worker @ [employer] ROS ROS ED Constitutional Constitutional ED: Denies [...] Eyes PERRL (more content not included)... Normal [facility] Lipaseon 05-13-2025 Lipase [Catalytic activity/Vol] 23 U/L Normal 13-75 [facility] Comment on above: Result Comment: Rashaun rodriguez note: LIPASE revised reference range effective 22. New Lipase methodology. Expected to produce lower values than the previous assay method. NEW Reference Range: 13 - 75 U/L Performed By: #### L 100.0100, L500.4050, L501.2450 #### [facility] [address] [place], [address] Urinalysis, Completeon 05-13 EPI,SQUAMOUS 0-5 SEEN Normal 5-10 [facility] Comment on above: Order Comment: CLEAN CATCH Performed By: #### L 500.2500, L100.0100 #### [facility] [address] [place], [address] BACTERIA 1+ /hpf Normal None Seen [facility] Comment on above: Order Comment: CLEAN CATCH Performed By: #### L 500.2500, L100.0100 #### [facility] [address] [place], [address] Mucus Ql (Urine sed) 1+ /hpf Normal [facility] Comment on above: Order Comment: CLEAN CATCH Performed By: #### L 500.2500, L100.0100 #### [facility] [address] [place], [address] RBC 0 SEEN Normal 0-5 [facility] Comment on above: Order Comment: CLEAN CATCH Performed By: #### L 500.2500, L100.0100 #### [facility] [address] [place], [address] WBC 0 SEEN Normal 0-5 [facility] Comment on above: Order Comment: CLEAN CATCH Performed By: #### L 500.2500, L100.0100 #### [facility] [address] [place], [address] Basic Metabolic Profile (BMP )on 05-12-2025 BUN/CRE 16.0 RATIO Normal 10-20 [facility] Comment on above: Performed By: #### L 100.0100, L700.8000, L500.2500 #### [facility] [address] [place], [address] Calcium [Mass/Vol] 8.8 mg/dL Normal 7.6-11.0 [facility] Comment on above: Performed By: #### L 100.0100, L700.8000, L500.2500 #### [facility] [address] [place], [address] Chloride [Moles/Vol] 106 mmol/L Normal 98-108 [facility] Comment on above: Performed By: #### L 100.0100, L700.8000, L500.2500 #### [facility] [address] [place], [address] CO2 [Moles/Vol] 19.8 mmol/L Low 21.0-32.0 [facility] Comment on above: Performed By: #### L 100.0100, L700.8000, L500.2500 #### [facility] [address] [place], [address] Creatinine [Mass/Vol] 0.59 mg/dL Low 0.70-1.20 [facility] Comment on above: Performed By: #### L 100.0100, L700.8000, L500.2500 #### [facility] [address] [place], [address] ECRCL 117.29 ml/min Normal 50-250 [facility] Comment on above: Performed By: #### L 100.0100, L700.8000, L500.2500 #### [facility] [address] [place], [address] GAP 12 Normal 5-15 [facility] Comment on above: Performed By: #### L 100.0100, L700.8000, L500.2500 #### [facility] [address] [place], [address] GFR/1.73 sq M.predicted among non-blacks MDRD (S/P/Bld) [Vol rate/Area] 130 mL/min/{1.73_m2} Normal >60 [facility] Comment on above: Result Comment: mL/m in/1.73m2 CKD-EPI Creatinine Equation (2020) Performed By: #### L 100.0100, L700.8000, L500.2500 #### [facility] [address] [place], [address] Glucose [Mass/Vol] 92 mg/dL Normal 70-99 [facility] Comment on above: Performed By: #### L 100.0100, L700.8000, L500.2500 #### [facility] [address] [place], [address] Potassium [Moles/Vol] 3.3 mmol/L Normal 3.3-5.1 [facility] Comment on above: Performed By: #### L 100.0100, L700.8000, L500.2500 #### [facility] [address] [place], [address] Sodium [Moles/Vol] 138 mmol/L Normal 133-145 [facility] Comment on above: Performed By: #### L 100.0100, L700.8000, L500.2500 #### [facility] [address] [place], [address] Urea nitrogen [Mass/Vol] 10 mg/dL Normal 4-19 [facility] Comment on above: Performed By: #### L 100.0100, L700.8000, L500.2500 #### [facility] [address] [place], [address] CBC W/Diff, Automatedon 09-2 -2024 Absolute Lymph 1.38 X10 3/uL Normal 0.83-4.51 [facility] Comment on above: Performed By: #### L 100.0100, L700.8000, L500.2500 #### [facility] [address] [place], [address] Absolute Neut 7.5 X10 3/uL Normal 2.0-7.7 [facility] Comment on above: Performed By: #### L 100.0100, L700.8000, L500.2500 #### [facility] [address] [place], [address] Basophils/100 WBC (Bld) 0.3 % Normal 0-1 [facility] Comment on above: Performed By: #### L 100.0100, L700.8000, L500.2500 #### [facility] [address] [place], [address] Eosinophils/100 WBC (Bld) 0.8 % Normal 0-5 [facility] Comment on above: Performed By: #### L 100.0100, L700.8000, L500.2500 #### [facility] [address] [place], [address] Erythrocyte distribution width (RBC) [Ratio] 12.1 % Normal 11.6-14.6 [facility] Comment on above: Performed By: #### L 100.0100, L700.8000, L500.2500 #### [facility] [address] [place], [address] Hematocrit (Bld) [Volume fraction] 35.2 % Low 37-47 [facility] Comment on above: Performed By: #### L 100.0100, L700.8000, L500.2500 #### [facility] [address] [place], [address] Hemoglobin (Bld) [Mass/Vol] 12.8 g/dL Normal 12.0-15.0 [facility] Comment on above: Performed By: #### L 100.0100, L700.8000, L500.2500 #### [facility] [address] [place], [address] IG% 0.300 Normal 0.0-0.9 [facility] Comment on above: Result Comment: IG% - Immature Granulocytes (promyelocytes, myelocytes and metamyelocytes) > 1% indicates that a LEFT SHIFT is Present. Performed By: #### L 100.0100, L700.8000, L500.2500 #### [facility] [address] [place], [address] Lymphocytes/100 WBC (Bld) 14.5 % Low 19-41 [facility] Comment on above: Performed By: #### L 100.0100, L700.8000, L500.2500 #### [facility] [address] [place], [address] MCH (RBC) [Entitic mass] 32.1 pg High 27.0-32.0 [facility] Comment on above: Performed By: #### L 100.0100, L700.8000, L500.2500 #### [facility] [address] [place], [address] MCHC (RBC) [Mass/Vol] 36.4 g/dL High 32-36 [facility] Comment on above: Performed By: #### L 100.0100, L700.8000, L500.2500 #### [facility] [address] [place], [address] MCV (RBC) [Entitic vol] 88.2 fL Normal 81-99 [facility] Comment on above: Performed By: #### L 100.0100, L700.8000, L500.2500 #### [facility] [address] [place], [address] Monocytes/100 WBC (Bld) 5.4 % Normal 0-10 [facility] Comment on above: Performed By: #### L 100.0100, L700.8000, L500.2500 #### [facility] [address] [place], [address] Neutrophils/100 WBC (Bld) 78.7 % High 47-70 [facility] Comment on above: Performed By: #### L 100.0100, L700.8000, L500.2500 #### [facility] [address] [place], [address] Nucleated RBC (Bld) [#/Vol] 0 10*3/uL Normal 0-5 [facility] Comment on above: Performed By: #### L 100.0100, L700.8000, L500.2500 #### [facility] [address] [place], [address] Platelet mean volume (Bld) [Entitic vol] 9.6 fL Normal 6.2-12.0 [facility] Comment on above: Performed By: #### L 100.0100, L700.8000, L500.2500 #### [facility] [address] [place], [address] Platelets (Bld) [#/Vol] 268 10*3/uL Normal 150-450 [facility] Comment on above: Performed By: #### L 100.0100, L700.8000, L500.2500 #### [facility] [address] [place], [address] RBC (Bld) [#/Vol] 3.99 10*6/uL Low 4.2-5.4 [facility] Comment on above: Performed By: #### L 100.0100, L700.8000, L500.2500 #### [facility] [address] [place], [address] RDW SD 39.4 fl Normal 35.1-43.9 [facility] Comment on above: Performed By: #### L 100.0100, L700.8000, L500.2500 #### [facility] [address] [place], [address] WBC (Bld) [#/Vol] 9.6 10*3/uL Normal 4.4-11.0 [facility] Comment on above: Performed By: #### L 100.0100, L700.8000, L500.2500 #### [facility] [address] [place], [address] Emergency Department Summary on 05-12-2025 Emergency Department Summary [facility] Medical Records Department [address] [place] [address] Emergency Department Summary 05/12/25 MR#: [id number] Acct: [id number] Name: GLORIA NETTLES TOBIAS Rep #: [id number] : 2000 24 From: Zafar Marrero DO PCP: Dr. Wilfred Egan, DO Status:DEP [...] Patient denies any suicidal or homicidal ideations. [facility] Medical History Marijuana use Panic disorder Major [...] 0 current occupational status: employed current occupation: [employer] current occupational exposures/hazards: No pets and animals: [...] times per week duration: < 15 minutes/day dustin/tenriism: None seatbelt use: always do you feel safe at home: Yes additional social history: BF: [employer] Worker @ [employer] ROS ROS ED Constitutional Constitutional ED: Reports [...] / Orientation: (more content not included)... Normal [facility] Urinalysis, Completeon 05-12 BACTERIA 2+ /hpf Normal None Seen [facility] Comment on above: Order Comment: CLEAN CATCH Performed By: #### L 500.2500, L100.0100 #### [facility] [facility] [address] [place], [address] EPI,SQUAMOUS 0-5 SEEN Normal 5-10 [facility] Comment on above: Order Comment: CLEAN CATCH Performed By: #### L 500.2500, L100.0100 #### [facility] [address] [place], [address] Mucus Ql (Urine sed) 0 SEEN Normal [facility] Comment on above: Order Comment: CLEAN CATCH Performed By: #### L 500.2500, L100.0100 #### [facility] [address] [place], [address] RBC 0 SEEN Normal 0-5 [facility] Comment on above: Order Comment: CLEAN CATCH Performed By: #### L 500.2500, L100.0100 #### [facility] [address] [place], [address] WBC 0 SEEN Normal 0-5 [facility] Comment on above: Order Comment: CLEAN CATCH Performed By: #### L 500.2500, L100.0100 #### [facility] [address] [place], [address] hCG Titer Quant., Serumon HCG QUANT. 51030 mIU/mL High <9 non-preg [facility] Comment on above: Result Comment: Gest ational Age 0.2-1 Week: 5-50 mIU/mL 1-2 Weeks: 50-500 mIU/mL 2-3 Weeks: 100-5000 mIU/mL 3-4 Weeks: 500-10,000 mIU/mL 4-5 Weeks:1000-50,000 mIU/mL 5-6 Weeks: 10,000-100,000 mIU/mL 6-8 Weeks: 15,000-200,000 mIU/mL 2-3 Months:10,000-100,000 mIU/mL Performed By: #### L 500.2500, L100.0100 #### [facility] [address] [place], [address] Office Visit Reporton 2024 Office Visit Report [facility] [address] [place] [address] OFFICE VISIT Date of Service: 05/04/25 MR#: [id number] Acct: [id number] Patient: GLORIA NETTLES Rep #: [id number] : 2000 Provider: MARYLIN Crum ams Age/Sex: 24/F Location: [facility] Status: Signed reviewed Intake Vital Signs 10/20/24 [...] Cosigner Signature: Date (if applicable) CC: Normal [facility] BACTERIAL VAGINOSIS NAATon 0 02-02-2025 Lactobacillus crispatus+gasseri +jensenii + Gardnerella vaginalis + Atopobium vaginae rRNA OLIVIA+probe Ql (Vag fld) Detected Abnormal Not detected [facility] Comment on above: Order Comment: Speci men Type: SWAB Ordering Facility: [facility] Address: [address] [place] [address] Performed By: #### 3 6902-5, BVAMP #### [facility] CLIA [id number] [address] [place] [address] [place] Bacteria Ur Culton [...] llection technique or straight catheterization for???urine???collection. Normal [facility] Comment on above: Performed By: #### 6 30-4 #### [facility] CLIA [id number] [address] [place] [address] [place] C. trachomatis+N. gonorrhoea e DNA OLIVIA+probe Ql (Unsp spec)on 02-02-2025 C. trachomatis rRNA OLIVIA+probe Ql (Unsp spec) Not detected Normal Not detected [facility] Comment on above: Order Comment: Speci men Type: SWAB Ordering Facility: [facility] Address: [address] [place] [address] Performed By: #### 3 6902-5, BVAMP #### [facility] CLIA [id number] [address] [place] [address] [place] N. gonorrhoeae rRNA OLIVIA+probe Ql (Unsp spec) Not detected Normal Not detected [facility] Comment on above: Order Comment: Speci men Type: SWAB Ordering Facility: [facility] Address: [address] [place] [address] Performed By: #### 3 6902-5, BVAMP #### [facility] CLIA [id number] [address] [place] [address] [place] ADELITA/TRICHOMONAS NAATon 0 02-02-2025 C. glabrata RNA OLIVIA+probe Ql (Vag fld) Not detected Normal Not detected [facility] Comment on above: Order Comment: Speci men Type: SWAB Ordering Facility: [facility] Address: [address] [place] [address] Performed By: #### C VTV #### [facility] CLIA [id number] [address] [place] [address] [place] Adelita sp DNA OLIVIA+probe Ql (Vag fld) Detected Abnormal Not detected [facility] Comment on above: Order Comment: Speci men Type: SWAB Ordering Facility: [facility] Address: [address] [place] [address] Result Comment: The Adelita species group target includes C. albicans, C. tropicalis, C. parapsilosis, and C. dubliniensis. Performed By: #### C VTV #### [facility] CLIA [id number] [address] [place] [address] [place] T. vaginalis DNA LOIVIA+probe Ql (Unsp spec) Not detected Normal Not detected [facility] Comment on above: Order Comment: Speci men Type: SWAB Ordering Facility: [facility] Address: [address] [place] [address] Performed By: #### C VTV #### [facility] CLIA [id number] [address] [place] [address] OF [facility] CNOVon 02-02-2025 CNOV Office Visit (UCWSTR ) GLORIA NETTLES ([id number]) 2 F Date Time Provider Department 02/02/25 8:45 AM NATALI ZEPEDA [facility] During your visit today, we recorded the following information about you: Temperature Pulse Respiration Blood pressure 97.1 degrees 78/minute 16/minute 108/62 Weight 52.7 kg Natali Zepeda APRN.[facility] 02/02/2025 9:20 AM Signed [facility] [...] plan 11/24/2020 placed on care plan by [facility] for excessive visits PAST SURGICAL [...] deficit. Motor: (more content not included)... Normal [facility] UA DIP, URINE (POC)on 2024 BILIRUBIN UA (POCT) Negative Negative [facility] CLARITY UA (POCT) Clear [facility] COLOR UA (POCT) Yellow [facility] GLUCOSE UA (POCT) Negative Negative mg/dL [facility] Hemoglobin Ql (U) Trace-lysed Abnormal Negative [facility] Interpretation and review of laboratory results Abnormal [facility] KETONE UA (POCT) Negative Negative mg/dL [facility] LEUKOCYTES UA (POCT) Negative Negative [facility] NITRITE UA (POCT) Negative Negative [facility] PH UA (POCT) 5.5 4.5 - 8.0 [facility] Protein Ql (U) Negative Negative mg/dL [facility] SPECIFIC GRAVITY UA (POCT) 1.025 1.005 - 1.030 [facility] UROBILINOGEN UA (POCT) 0.2 Normal E.U./dL [facility] Location:[facility] [place], [address] [facility], [place], [address] [facility] POINT OF CARE [facility] Urine Cultureon 10-22-2024 URC #1, 2 Below infectio n level. 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 Submit a new specimen if indicated. Normal [facility] Comment on above: Performed By: #### L 100.0100, L500.4050, L501.2450 #### [facility] [address] [place], [address] CBC W/Diff, Automatedon Absolute Lymph 0.48 X10 3/uL Low 0.83-4.51 [facility] Comment on above: Performed By: #### L 100.0100, L500.4050, L501.2450 #### [facility] [address] [place], [address] Absolute Neut 10.7 X10 3/uL High 2.0-7.7 [facility] Comment on above: Performed By: #### L 100.0100, L500.4050, L501.2450 #### [facility] [address] [place], [address] Basophils/100 WBC (Bld) 0.2 % Normal 0-1 [facility] Comment on above: Performed By: #### L 100.0100, L500.4050, L501.2450 #### [facility] [address] [place], [address] Eosinophils/100 WBC (Bld) 0.0 % Normal 0-5 [facility] Comment on above: Performed By: #### L 100.0100, L500.4050, L501.2450 #### [facility] [address] [place], [address] Erythrocyte distribution width (RBC) [Ratio] 12.5 % Normal 11.6-14.6 [facility] Comment on above: Performed By: #### L 100.0100, L500.4050, L501.2450 #### [facility] [address] [place], [address] Hematocrit (Bld) [Volume fraction] 38.3 % Normal 37-47 [facility] Comment on above: Performed By: #### L 100.0100, L500.4050, L501.2450 #### [facility] [address] [place], [address] Hemoglobin (Bld) [Mass/Vol] 13.6 g/dL Normal 12.0-15.0 [facility] Comment on above: Performed By: #### L 100.0100, L500.4050, L501.2450 #### [facility] [address] [place], [address] IG% 0.300 Normal 0.0-0.9 [facility] Comment on above: Result Comment: IG% - Immature Granulocytes (promyelocytes, myelocytes and metamyelocytes) > 1% indicates that a LEFT SHIFT is Present. Performed By: #### L 100.0100, L500.4050, L501.2450 #### [facility] [address] [place], [address] Lymphocytes/100 WBC (Bld) 4.2 % Low 19-41 [facility] Comment on above: Performed By: #### L 100.0100, L500.4050, L501.2450 #### [facility] [address] [place], [address] MCH (RBC) [Entitic mass] 31.6 pg Normal 27.0-32.0 [facility] Comment on above: Performed By: #### L 100.0100, L500.4050, L501.2450 #### [facility] [address] [place], [address] MCHC (RBC) [Mass/Vol] 35.5 g/dL Normal 32-36 [facility] Comment on above: Performed By: #### L 100.0100, L500.4050, L501.2450 #### [facility] [address] [place], [address] MCV (RBC) [Entitic vol] 88.9 fL Normal 81-99 [facility] Comment on above: Performed By: #### L 100.0100, L500.4050, L501.2450 #### [facility] [address] [place], [address] Monocytes/100 WBC (Bld) 2.2 % Normal 0-10 [facility] Comment on above: Performed By: #### L 100.0100, L500.4050, L501.2450 #### [facility] [address] [place], [address] Neutrophils/100 WBC (Bld) 93.1 % High 47-70 [facility] Comment on above: Performed By: #### L 100.0100, L500.4050, L501.2450 #### [facility] [address] [place], [address] Nucleated RBC (Bld) [#/Vol] 0 10*3/uL Normal 0-5 [facility] Comment on above: Performed By: #### L 100.0100, L500.4050, L501.2450 #### [facility] [address] [place], [address] Platelet mean volume (Bld) [Entitic vol] 11.3 fL Normal 6.2-12.0 [facility] Comment on above: Performed By: #### L 100.0100, L500.4050, L501.2450 #### [facility] [address] [place], [address] Platelets (Bld) [#/Vol] 242 10*3/uL Normal 150-450 [facility] Comment on above: Performed By: #### L 100.0100, L500.4050, L501.2450 #### [facility] [address] [place], [address] RBC (Bld) [#/Vol] 4.31 10*6/uL Normal 4.2-5.4 [facility] Comment on above: Performed By: #### L 100.0100, L500.4050, L501.2450 #### [facility] [address] [place], [address] RDW SD 41.1 fl Normal 35.1-43.9 [facility] Comment on above: Performed By: #### L 100.0100, L500.4050, L501.2450 #### [facility] [address] [place], [address] WBC (Bld) [#/Vol] 11.5 10*3/uL High 4.4-11.0 [facility] Comment on above: Performed By: #### L 100.0100, L500.4050, L501.2450 #### [facility] [address] [place], [address] Comprehensive Metabolic Prof ilon 10-20-2024 Albumin [Mass/Vol] 4.4 g/dL Normal 3.5-5.0 [facility] Comment on above: Performed By: #### L 100.0100, L500.4050, L501.2450 #### [facility] [address] [place], [address] Albumin/Globulin [Mass ratio] 1.6 {ratio} Normal 0.9-2.4 [facility] Comment on above: Performed By: #### L 100.0100, L500.4050, L501.2450 #### [facility] [address] [place], [address] ALK PHOS 93 U/L Normal 35-104 [facility] Comment on above: Performed By: #### L 100.0100, L500.4050, L501.2450 #### [facility] [address] [place], [address] ALT [Catalytic activity/Vol] 8 U/L Normal <=34 [facility] Comment on above: Performed By: #### L 100.0100, L500.4050, L501.2450 #### [facility] [address] [place], [address] AST [Catalytic activity/Vol] 21 U/L Normal <=31 [facility] Comment on above: Result Comment: Hemo lysis present, Results??could be affected. ?? Performed By: #### L 100.0100, L500.4050, L501.2450 #### [facility] [address] [place], [address] Bilirubin [Mass/Vol] 1.42 mg/dL High 0.00-1.30 [facility] Comment on above: Performed By: #### L 100.0100, L500.4050, L501.2450 #### [facility] [address] [place], [address] BUN/CRE 20.6 RATIO High 10-20 [facility] Comment on above: Performed By: #### L 100.0100, L500.4050, L501.2450 #### [facility] [address] [place], [address] Calcium [Mass/Vol] 9.2 mg/dL Normal 7.6-11.0 [facility] Comment on above: Performed By: #### L 100.0100, L500.4050, L501.2450 #### [facility] [address] [place], [address] Chloride [Moles/Vol] 101 mmol/L Normal 98-108 [facility] Comment on above: Performed By: #### L 100.0100, L500.4050, L501.2450 #### [facility] [address] [place], [address] CO2 [Moles/Vol] 19.2 mmol/L Low 21.0-32.0 [facility] Comment on above: Performed By: #### L 100.0100, L500.4050, L501.2450 #### [facility] [address] [place], [address] Creatinine [Mass/Vol] 0.71 mg/dL Normal 0.70-1.20 [facility] Comment on above: Performed By: #### L 100.0100, L500.4050, L501.2450 #### [facility] [address] [place], [address] ECRCL 95.91 ml/min Normal 50-250 [facility] Comment on above: Performed By: #### L 100.0100, L500.4050, L501.2450 #### [facility] [address] [place], [address] GAP 16 High 5-15 [facility] Comment on above: Performed By: #### L 100.0100, L500.4050, L501.2450 #### [facility] [address] [place], [address] GFR/1.73 sq M.predicted among non-blacks MDRD (S/P/Bld) [Vol rate/Area] 122 mL/min/{1.73_m2} Normal >60 [facility] Comment on above: Result Comment: mL/m in/1.73m2 CKD-EPI Creatinine Equation (2020) Performed By: #### L 100.0100, L500.4050, L501.2450 #### [facility] [address] [place], [address] Globulin (S) [Mass/Vol] 2.8 g/dL Normal 2.2-4.2 [facility] Comment on above: Performed By: #### L 100.0100, L500.4050, L501.2450 #### [facility] [address] [place], [address] Glucose [Mass/Vol] 101 mg/dL High 70-99 [facility] Comment on above: Performed By: #### L 100.0100, L500.4050, L501.2450 #### [facility] [address] [place], [address] Potassium [Moles/Vol] 3.5 mmol/L Normal 3.3-5.1 [facility] Comment on above: Result Comment: Hemo lysis present, Results??could be affected. ?? Performed By: #### L 100.0100, L500.4050, L501.2450 #### [facility] [address] [place], [address] Sodium [Moles/Vol] 136 mmol/L Normal 133-145 [facility] Comment on above: Performed By: #### L 100.0100, L500.4050, L501.2450 #### [facility] [address] [place], [address] T PROT 7.2 g/dL Normal 5.9-8.4 [facility] Comment on above: Performed By: #### L 100.0100, L500.4050, L501.2450 #### [facility] [address] [place], [address] Urea nitrogen [Mass/Vol] 15 mg/dL Normal 4-19 [facility] Comment on above: Performed By: #### L 100.0100, L500.4050, L501.2450 #### [facility] [address] [place], [address] Emergency Department Summary on 10-20-2024 Emergency Department Summary [facility] Medical Records Department [address] [place] [address] Emergency Department Summary 10/20/24 MR#: [id number] Acct: [id number] Name: GLORIA NETTLES TOBIAS Rep #: [id number] : 2000 24 From: [facility] [place] [...] blood in her stool or her vomit. [facility] Medical History Wears glasses History of steroid [...] past. Sh (more content not included)... Normal [facility] Lipaseon 10-20-2024 Lipase [Catalytic activity/Vol] 21 U/L Normal 13-75 [facility] Comment on above: Result Comment: Rashaun rodriguez note: LIPASE revised reference range effective 22. New Lipase methodology. Expected to produce lower values than the previous assay method. NEW Reference Range: 13 - 75 U/L Performed By: #### L 100.0100, L500.4050, L501.2450 #### [facility] [address] [place], [address] M100.678on 10-20-2024 M100.678 SARS-CoV-2 (COVID 19 ) Negative INFLUENZA A Negative INFLUENZA B Negative RSV PCR Negative Normal [facility] Comment on above: Performed By: #### M 100.678, L400.0001, L400.7600 #### [facility] [address] [place], [address] ,Urineon 10-20-2024 Beta HCG ( test) Ql (U) Negative Normal [facility] Comment on above: Result Comment: Very dilute urine specimens, as indicated by a low specific gravity, may not contain lifeline representatives levels of hCG. If is still suspected, a first morning urine specimen should be collected 48 hours later and tested. Performed By: #### M 100.678, L400.0001, L400.7600 #### [facility] [address] [place], [address] Urinalysis, Completeon 10-20 KETONE UR 150 mg/dl Abnormal Negative [facility] Comment on above: Order Comment: CLEAN CATCH Result Comment: CRIT ICAL VALUE *H CRITICAL VALUE CALLED TO SHEN 10/20/24 Gal Otoniel Haque. RESULTS READ BACK BY SAME. Performed By: #### M 100.678, L400.0001, L400.7600 #### [facility] [address] [place], [address] BACTERIA 3+ /hpf Normal None Seen [facility] Comment on above: Order Comment: CLEAN CATCH Performed By: #### M 100.678, L400.0001, L400.7600 #### [facility] [address] [place], [address] EPI,SQUAMOUS 10-25 SEEN Normal 5-10 [facility] Comment on above: Order Comment: CLEAN CATCH Performed By: #### M 100.678, L400.0001, L400.7600 #### [facility] [address] [place], [address] Mucus Ql (Urine sed) 3+ /hpf Normal [facility] Comment on above: Order Comment: CLEAN CATCH Performed By: #### M 100.678, L400.0001, L400.7600 #### [facility] [address] [place], [address] RBC 0 SEEN Normal 0-5 [facility] Comment on above: Order Comment: CLEAN CATCH Performed By: #### M 100.678, L400.0001, L400.7600 #### [facility] [address] [place], [address] WBC 50-100 SEEN Normal 0-5 [facility] Comment on above: Order Comment: CLEAN CATCH Performed By: #### M 100.678, L400.0001, L400.7600 #### [facility] [address] [place], [address] BILIRUBIN URINE 1 mg/dL Abnormal Negative [facility] Comment on above: Order Comment: CLEAN CATCH Result Comment: COLO R OF URINE MAY AFFECT DIPSTICK RESULTS. Performed By: #### M 100.678, L400.0001, L400.7600 #### [facility] [address] [place], [address] Clarity (U) Sl. Cloudy Normal Clear [facility] Comment on above: Order Comment: CLEAN CATCH Performed By: #### M 100.678, L400.0001, L400.7600 #### [facility] [address] [place], [address] Color (U) Yellow Normal Yellow [facility] Comment on above: Order Comment: CLEAN CATCH Performed By: #### M 100.678, L400.0001, L400.7600 #### [facility] [address] [place], [address] GLUCOSE, UR Normal Normal Normal [facility] Comment on above: Order Comment: CLEAN CATCH Performed By: #### M 100.678, L400.0001, L400.7600 #### [facility] [address] [place], [address] LEUK ESTERASE 500 /ul Abnormal Negative [facility] Comment on above: Order Comment: CLEAN CATCH Performed By: #### M 100.678, L400.0001, L400.7600 #### [facility] [address] [place], [address] Nitrite Ql (U) Negative Normal Negative [facility] Comment on above: Order Comment: CLEAN CATCH Performed By: #### M 100.678, L400.0001, L400.7600 #### [facility] [address] [place], [address] OCCULT BLOOD-UR Negative Normal Negative [facility] Comment on above: Order Comment: CLEAN CATCH Performed By: #### M 100.678, L400.0001, L400.7600 #### [facility] [address] [place], [address] pH UR 6.0 Normal 5.0 - 8.0 [facility] Comment on above: Order Comment: CLEAN CATCH Performed By: #### M 100.678, L400.0001, L400.7600 #### [facility] [address] [place], [address] PROT DIPSTX 30 mg/dl Abnormal Negative [facility] Comment on above: Order Comment: CLEAN CATCH Performed By: #### M 100.678, L400.0001, L400.7600 #### [facility] [address] [place], [address] SP.GR. DIPSTX 1.025 Normal 1.002-1.030 [facility] Comment on above: Order Comment: CLEAN CATCH Performed By: #### M 100.678, L400.0001, L400.7600 #### [facility] [address] [place], [address] UROBILI 1 mg/dl Abnormal Normal [facility] Comment on above: Order Comment: CLEAN CATCH Performed By: #### M 100.678, L400.0001, L400.7600 #### [facility] [address] [place], [address] Basic Metabolic Profile (BMP )on 06-25-2024 BUN/CRE 12.8 RATIO Normal 10-20 [facility] Comment on above: Performed By: #### L 500.2500, L100.0100 #### [facility] [address] [place], [address] CA,Total 8.9 mg/dL Normal 8.5-10.1 [facility] Comment on above: Performed By: #### L 500.2500, L100.0100 #### [facility] [address] [place], [address] Chloride [Moles/Vol] 112 mmol/L High 98-107 [facility] Comment on above: Performed By: #### L 500.2500, L100.0100 #### [facility] [address] [place], [address] CO2 [Moles/Vol] 23.0 mmol/L Normal 21.0-32.0 [facility] Comment on above: Performed By: #### L 500.2500, L100.0100 #### [facility] [address] [place], [address] Creatinine [Mass/Vol] 0.78 mg/dL Normal 0.55-1.02 [facility] Comment on above: Result Comment: The validity of the calculated GFR GFRAA in patients over 70 years has not been determined. Clinical correlation is essential. Performed By: #### L 500.2500, L100.0100 #### [facility] [address] [place], [address] ECRCL 93.58 ml/min Normal [facility] Comment on above: Performed By: #### L 500.2500, L100.0100 #### [facility] [address] [place], [address] EST GFR - AA 117 mL/min Normal >60 [facility] Comment on above: Result Comment: Afri can Togolese GFR Calc Performed By: #### L 500.2500, L100.0100 #### [facility] [address] [place], [address] GAP 4 Low 5-15 [facility] Comment on above: Performed By: #### L 500.2500, L100.0100 #### [facility] [address] [place], [address] GFR/1.73 sq M.predicted among non-blacks MDRD (S/P/Bld) [Vol rate/Area] 97 mL/min/{1.73_m2} Normal >60 [facility] Comment on above: Result Comment: Non- GFR Calc Performed By: #### L 500.2500, L100.0100 #### [facility] [address] [place], [address] Glucose [Mass/Vol] 120 mg/dL High 74-106 [facility] Comment on above: Result Comment: Fast ing Glucose result from 100 to 125 mg/dL suggests IMPAIRED HOMEOSTASIS per A.D.A. criteria. Performed By: #### L 500.2500, L100.0100 #### [facility] [address] [place], [address] Potassium [Moles/Vol] 3.5 mmol/L Normal 3.5-5.1 [facility] Comment on above: Performed By: #### L 500.2500, L100.0100 #### [facility] [address] [place], [address] Sodium [Moles/Vol] 138 mmol/L Normal 136-145 [facility] Comment on above: Performed By: #### L 500.2500, L100.0100 #### [facility] [address] [place], [address] Urea nitrogen [Mass/Vol] 10 mg/dL Normal 7-18 [facility] Comment on above: Performed By: #### L 500.2500, L100.0100 #### [facility] [address] [place], [address] CBC W/Diff, Automatedon 11-0 7-2023 Absolute Lymph 1.02 X10 3/uL Normal 0.83-4.51 [facility] Comment on above: Performed By: #### L 500.2500, L100.0100 #### [facility] [address] [place], [address] Absolute Neut 10.7 X10 3/uL High 2.0-7.7 [facility] Comment on above: Performed By: #### L 500.2500, L100.0100 #### [facility] [address] [place], [address] Basophils/100 WBC (Bld) 0.5 % Normal 0-1 [facility] Comment on above: Performed By: #### L 500.2500, L100.0100 #### [facility] [address] [place], [address] Eosinophils/100 WBC (Bld) 0.6 % Normal 0-5 [facility] Comment on above: Performed By: #### L 500.2500, L100.0100 #### [facility] [address] [place], [address] Erythrocyte distribution width (RBC) [Ratio] 13.1 % Normal 11.6-14.6 [facility] Comment on above: Performed By: #### L 500.2500, L100.0100 #### [facility] [address] [place], [address] Hematocrit (Bld) [Volume fraction] 39.3 % Normal 37-47 [facility] Comment on above: Performed By: #### L 500.2500, L100.0100 #### [facility] [address] [place], [address] Hemoglobin (Bld) [Mass/Vol] 13.8 g/dL Normal 12.0-15.0 [facility] Comment on above: Performed By: #### L 500.2500, L100.0100 #### [facility] [address] [place], [address] IG% 0.400 Normal 0.0-0.9 [facility] Comment on above: Result Comment: IG% - Immature Granulocytes (promyelocytes, myelocytes and metamyelocytes) > 1% indicates that a LEFT SHIFT is Present. Performed By: #### L 500.2500, L100.0100 #### [facility] [address] [place], [address] Lymphocytes/100 WBC (Bld) 8.3 % Low 19-41 [facility] Comment on above: Performed By: #### L 500.2500, L100.0100 #### [facility] [address] [place], [address] MCH (RBC) [Entitic mass] 30.5 pg Normal 27.0-32.0 [facility] Comment on above: Performed By: #### L 500.2500, L100.0100 #### [facility] [address] [place], [address] MCHC (RBC) [Mass/Vol] 35.1 g/dL Normal 32-36 [facility] Comment on above: Performed By: #### L 500.2500, L100.0100 #### [facility] [address] [place], [address] MCV (RBC) [Entitic vol] 86.9 fL Normal 81-99 [facility] Comment on above: Performed By: #### L 500.2500, L100.0100 #### [facility] [address] [place], [address] Monocytes/100 WBC (Bld) 2.9 % Normal 0-10 [facility] Comment on above: Performed By: #### L 500.2500, L100.0100 #### [facility] [address] [place], [address] Neutrophils/100 WBC (Bld) 87.3 % High 47-70 [facility] Comment on above: Performed By: #### L 500.2500, L100.0100 #### [facility] [address] [place], [address] Nucleated RBC (Bld) [#/Vol] 0 10*3/uL Normal 0-5 [facility] Comment on above: Performed By: #### L 500.2500, L100.0100 #### [facility] [address] [place], [address] Platelet mean volume (Bld) [Entitic vol] 9.8 fL Normal 6.2-12.0 [facility] Comment on above: Performed By: #### L 500.2500, L100.0100 #### [facility] [address] [place], [address] Platelets (Bld) [#/Vol] 254 10*3/uL Normal 150-450 [facility] Comment on above: Performed By: #### L 500.2500, L100.0100 #### [facility] [address] [place], [address] RBC (Bld) [#/Vol] 4.52 10*6/uL Normal 4.2-5.4 [facility] Comment on above: Performed By: #### L 500.2500, L100.0100 #### [facility] [address] [place], [address] RDW SD 40.7 fl Normal 35.1-43.9 [facility] Comment on above: Performed By: #### L 500.2500, L100.0100 #### [facility] [address] [place], [address] WBC (Bld) [#/Vol] 12.3 10*3/uL High 4.4-11.0 [facility] Comment on above: Performed By: #### L 500.2500, L100.0100 #### [facility] [address] [place], [address] Emergency Department Summary on 06-25-2024 Emergency Department Summary [facility] Medical Records Department [address] [address] Emergency Department Summary 06/25/24 MR#: [id number] Acct: [id number] Name: GLORIA NETTLES TOBIAS Rep #: [id number] : 2000 23 From: Ignacio Murphy DO [...] History of Present Illness Chief Complaint: Anxiety [facility] Medical History Wears glasses History of [...] Ox 98 Oxygen Delivery Method Room Air [facility] Narrative Medical decision making narrative: HISTORY OF [...] colonoscopy that (more content not included)... Normal [facility] ,Urineon 06-25-2024 Beta HCG ( test) Ql (U) [facility] Comment on above: Result Comment: NICK ENT DISCHARGED Performed By: #### L 500.2500, L100.0100 #### [facility] [address] [place], [address] INTERNAL QC OK? [facility] Comment on above: Result Comment: NICK ENT DISCHARGED Performed By: #### L 500.2500, L100.0100 #### [facility] [address] [place], [address] RECORD KIT LOT# [facility] Comment on above: Result Comment: NICK ENT DISCHARGED Performed By: #### L 500.2500, L100.0100 #### [facility] [address] [place], [address] Emergency Department Summary on 06-11-2024 Emergency Department Summary [facility] Medical Records Department [address] [place] [address] Emergency Department Summary 06/11/24 MR#: [id number] Acct: [id number] Name: GLORIA NETTLES TOBIAS Rep #: [id number] : 2000 23 From: Fernando Sanchez DO [...] that the patient has a care plan. [facility] Medical History Wears glasses History of steroid [...] cyclic vomi (more content not included)... Normal [facility] ,Serum,hCG Quali.on 06-11-2024 HCG, SERUM QUAL Negative Normal [facility] Comment on above: Performed By: #### L 500.2500, L100.0100 #### [facility] [address] [facility] [place], [place], [id number] Gastric Emptying Studyon Gastric Emptying Study [facility] Imaging Services [address] [place], [place] [address] Gastric Emptying Study MR#: [id number] Acct: [id number] Name: GLORIA NETTLES TOBIAS Rep #: [id number] : 2000 F 23 From: Stanton Jennings PCP: Dr. Wilfred Egan DO Status: REG CLI Study: Gastric Emptying Study Date of Exam: 06/01/24 Exam# [id number] Ordering Dr: Kyleigh Joseph [id number] CLINICAL: 23-year-old female with history of chronic [...] CC: Dr. Wilfred Egan DO; ARNULFO Fernandez Crepe Sole Scourer: Signed Normal [facility] CNOVon 03-04-2024 CNOV Office Visit (FAMPWS ) GLORIA NETTLES ([id number]) 2 F Date Time Provider Department 03/04/24 [...] who presents here today for Above Complaints.. [facility] ER on 02/27 with abdominal pain and anxiety. Is seeing Dr. Adkins GI at [facility]. Stress/anxiety-work has been frustrating lately. Has been [...] somewhat and this lasts a few hours. [id number] like to take this a lot because [...] plan 11/24/2020 placed on care plan by [facility] for excessive visits Previous Surgical [...] with plan to see Dr. Adkins with [facility] GI. - SERTRALINE 50 MG TABLET - CONSULT TO PSYCHIATRY 2. Abdominal cramping - ICD9: 789.00, ICD10: R10.9 Continue with plan to see Dr. Adkins with [facility] GI. - SERTRALINE 50 MG TABLET - CONSULT TO PSYCHIATRY 3. Nausea and vomiting, unspecified vomiting type (more content not included)... Normal [facility] COVID-19, MOLECULARon 2022 SARS-CoV-2 (COVID-19) Ab IA Ql Not detected Normal Not Detected [facility] Comment on above: Result Comment: This test was performed under the FDA's Emergency Use Authorization (EUA). Testing was performed using the PadMatcher ID NOW COVID-19 assay on the ID NOW platform. This test has not been approved for use in asymptomatic patients and its performance in this patient population has not been evaluated. Negative results do not rule out the presence of SARS-CoV-2/COVID-19. Fact sheets for the EUA can be found at the following links: For Healthcare Providers: https://www.fda.gov/media/165862/download For Patients: https://www.fda.gov/media/031120/download CT ABDOMEN PELVIS WITH IV CO NTRAST [...] on SatDecember 26, 2022 11:21:22 PM EDT [facility] Comment on above: Order Comment: Injur y/Trauma or Illness?:Illness/Other How long have you had these symptoms (acute/chronic)?:Acute Reason for exam?:abd pain and vomiting Type of Exam?:Initial Additional signs and symptoms?:none HCG Preg Ur Qlon 10-20-2020 HCG ( test) Ql (U) Negative Normal Negative [facility] Comment on above: Order Comment: Speci [...] . Performed By: #### 2 106-3 #### [facility] CLIA [id number] [address] [place] [address] [facility] SURGICAL PATHOLOGYon CASE REPORT Normal [facility] Comment on above: Order Comment: Speci men Type: TISSUE SPECIMEN Result Comment: Surg ica Pathology Report Case: [id number] Authorizing Provider: Maryjane Levy Collected: 10/20/2020 01:09 PM Ordering Location: SURGERY Received: 10/21/2020 06:46 AM Pathologist: Yves Sandoval MD Specimens: A) - DUODENUM BIOPSY, Second Portion Duodenun B) - ANTRUM C) - ESOPHAGUS BIOPSY, Mid Esophagus D) - COLON BIOPSY, Random Mucosal Biopsies Performed By: #### S #### [facility] CLIA [id number] [address] [place] [address] FINAL DIAGNOSIS [facility] Comment on above: Order Comment: [...] histopathologic change. Performed By: #### S #### [facility] CLIA [id number] [address] [place] [address] FINAL PERFORMING LAB Normal [facility] Comment on above: Order Comment: Speci men Type: TISSUE SPECIMEN Result Comment: Diag nostic interpretation performed at [facility], [address] [place] [address] CLIA# [id number] Architectural Associate: Zafar Jacome M.D. Performed By: #### S #### [facility] CLIA [id number] [address] [place] [address] GROSS DESCRIPTION Normal [facility] Comment on above: Order Comment: Speci men Type: TISSUE SPECIMEN Result Comment: A. D UODENUM BIOPSY. Received in formalin labeled second portion duodenum are two barrera soft tissue fragments aggregating to 0.4 x 0.2 x 0.2 cm. Totally submitted in 1 cassette. B. ANTRUM. Received in formalin labeled antrum are two barerra soft tissue fragments aggregating to 0.4 x [...] 1 cassette. RSA/pkp Gross examination performed at [facility], [address] [place] [address] CLIA# [id number] Performed By: #### S #### [facility] CLIA [id number] [address] [place] [address] Vital Signs Date Time Vital Sign Value Performing Clinician Facility 02-02-2025 08:49-0400 Body mass index (BMI) [Ratio] 19.94 kg/m2 Natali Zepeda APRN.ACTIVITY DIRECTOR Work Phone: [facility] 02-02-2025 08:49-0400 Body temperature 97.11 [degF] Natali Zepeda LEATHER SCRUBBER.ACTIVITY DIRECTOR Work Phone: [facility] 02-02-2025 08:49-0400 Body weight 52.7 kg Natali Zepeda LEATHER SCRUBBER.ACTIVITY DIRECTOR Work Phone: [facility] 02-02-2025 08:49-0400 Diastolic blood pressure 62 mm[Hg] Natali Zepeda LEATHER SCRUBBER.ACTIVITY DIRECTOR Work Phone: [facility] 02-02-2025 08:49-0400 Heart rate 78 /min Natali Zepeda LEATHER SCRUBBER.ACTIVITY DIRECTOR Work Phone: [facility] 02-02-2025 08:49-0400 Respiratory rate 16 /min Natali Zepeda LEATHER SCRUBBER.ACTIVITY DIRECTOR Work Phone: [facility] 02-02-2025 08:49-0400 SaO2% (BldA) [Mass fraction] 97 % Natali Zepeda LEATHER SCRUBBER.ACTIVITY DIRECTOR Work Phone: [facility] 02-02-2025 08:49-0400 Systolic blood pressure 108 mm[Hg] Natali Zepeda LEATHER SCRUBBER.ACTIVITY DIRECTOR Work Phone: [facility] 03-04-2024 09:10-0400 Body mass index (BMI) [Ratio] 20.49 kg/m2 Poncho Sheldon LEATHER SCRUBBER.ACTIVITY DIRECTOR Work Phone: [facility] 03-04-2024 09:10-0400 Body weight 54.16 kg Poncho Sheldon LEATHER SCRUBBER.ACTIVITY DIRECTOR Work Phone: [facility] 03-04-2024 09:10-0400 Diastolic blood pressure 62 mm[Hg] Poncho Sheldon LEATHER SCRUBBER.ACTIVITY DIRECTOR Work Phone: [facility] 03-04-2024 09:10-0400 Heart rate 81 /min Poncho Sheldon LEATHER SCRUBBER.ACTIVITY DIRECTOR Work Phone: [facility] 03-04-2024 09:10-0400 Respiratory rate 16 /min Poncho Sheldon LEATHER SCRUBBER.ACTIVITY DIRECTOR Work Phone: [facility] 03-04-2024 09:10-0400 SaO2% (BldA) [Mass fraction] 99 % Poncho Sheldon LEATHER SCRUBBER.ACTIVITY DIRECTOR Work Phone: [facility] 03-04-2024 09:10-0400 Systolic blood pressure 108 mm[Hg] Poncho Sheldon LEATHER SCRUBBER.ACTIVITY DIRECTOR Work Phone: [facility] 10-19-2022 15:14-0500 Body temperature 97.81 [degF] Wilfred Egan DO Work Phone: [facility] 10-19-2022 15:14-0500 Body weight 55.79 kg Wilfred Egan DO Work Phone: [facility] 10-19-2022 15:14-0500 Diastolic blood pressure 60 mm[Hg] Wilfred Egan DO Work Phone: [facility] 10-19-2022 15:14-0500 Heart rate 96 /min Wilfred Egan DO Work Phone: [facility] 10-19-2022 15:14-0500 Respiratory rate 16 /min Wilfred Egan DO Work Phone: [facility] 10-19-2022 15:14-0500 Systolic blood pressure 120 mm[Hg] Wilfred Egan DO Work Phone: [facility] 05-20-2022 03:36-0400 Body height 160 cm Savage Scott MD Work Phone: [facility] 05-20-2022 03:36-0400 Body mass index (BMI) [Ratio] 23.03 kg/m2 Savage Scott MD Work Phone: [facility] 05-20-2022 03:36-0400 Body weight 58.97 kg Savage Scott MD Work Phone: [facility] 05-20-2022 03:35-0400 Body temperature 98.1 [degF] Savage Scott MD Work Phone: [facility] 05-20-2022 03:35-0400 Diastolic blood pressure 60 mm[Hg] Savage Scott MD Work Phone: [facility] 05-20-2022 03:35-0400 Heart rate 105 /min Savage Scott MD Work Phone: [facility] 05-20-2022 03:35-0400 Respiratory rate 20 /min Savage Scott MD Work Phone: [facility] 05-20-2022 03:35-0400 SaO2% (BldA) [Mass fraction] 99 % Savage Scott MD Work Phone: [facility] 05-20-2022 03:35-0400 Systolic blood pressure 127 mm[Hg] Savage Scott MD Work Phone: [facility] 01-17-2022 08:29-0400 Body weight 61.24 kg Poncho Sheldon LEATHER SCRUBBER.ACTIVITY DIRECTOR Work Phone: [facility] 01-17-2022 08:29-0400 Diastolic blood pressure 74 mm[Hg] Poncho Sheldon LEATHER SCRUBBER.ACTIVITY DIRECTOR Work Phone: [facility] 01-17-2022 08:29-0400 Heart rate 74 /min Poncho Sheldon LEATHER SCRUBBER.ACTIVITY DIRECTOR Work Phone: [facility] 01-17-2022 08:29-0400 Respiratory rate 16 /min Poncho Sheldon LEATHER SCRUBBER.ACTIVITY DIRECTOR Work Phone: [facility] 01-17-2022 08:29-0400 SaO2% (BldA) [Mass fraction] 97 % Poncho Sheldon LEATHER SCRUBBER.ACTIVITY DIRECTOR Work Phone: [facility] 01-17-2022 08:29-0400 Systolic blood pressure 104 mm[Hg] Poncho Sheldon LEATHER SCRUBBER.ACTIVITY DIRECTOR Work Phone: [facility] Encounters Encounter Date Encounter Type Care Provider Facility Start: 05-21-2025 ambulatory Raina Crowe Facility :[facility] Start: 05-13-2025 End: 05-13-2025 Emergency department patient visit Fay De Los Santos Facility:[facility] Start: 05-12-2025 End: 05-12-2025 Emergency department patient visit Zafar Marrero Facility:[facility] Start: 05-04-2025 End: 05-04-2025 ambulatory Raina Crowe Facility:[facility] Start: 02-03-2025 End: 02-03-2025 Follow-up encounter Lisa Banda LEATHER SCRUBBER.ACTIVITY DIRECTOR Work Phone: [facility] Start: 02-02-2025 End: 02-02-2025 Patient encounter procedure Natali Zepeda LEATHER SCRUBBER.ACTIVITY DIRECTOR Work Phone: [facility] Comment on above: Hematuria, unspecifi ed type (Primary Dx); Vaginal discomfort; Encounter for screening for bacterial sexually transmitted disease Start: 02-02-2025 End: 02-02-2025 ambulatory WILFRED EGAN Facility:[facility] Start: 10-20-2024 End: 10-20-2024 Emergency department patient visit Fay De Los Santos Facility:[facility] Start: 06-25-2024 End: 06-25-2024 Emergency department patient visit Ignacio Oneills Facility:[facility] Start: 06-11-2024 End: 06-11-2024 Emergency department patient visit Fernando Sanchez Facility:[facility] Start: 06-02-2024 ambulatory Kyleigh Joseph Facili ty:[facility] Start: 06-01-2024 End: 06-01-2024 ambulatory Kyleigh Joseph Facility:[facility] Start: 03-04-2024 End: 03-04-2024 ambulatory PONCHO CASTELLONUTZMAN Facility:[facility] Start: 03-04-2024 End: 03-04-2024 Office outpatient visit 25 minutes Poncho Jaime LEATHER SCRUBBER.ACTIVITY DIRECTOR Work Phone: [facility] Comment on above: Anxiety (Primary Dx) ; Abdominal cramping; Nausea and vomiting, unspecified vomiting type Start: 05-15-2023 End: 05-15-2023 Emergency department patient visit CHASITY PARIKH [facility] Start: 12-28-2022 End: 12-28-2022 Emergency department patient visit WILFRED EGAN [facility] Start: 12-26-2022 End: 12-27-2022 Emergency department patient visit WILFRED EGAN [facility] Start: 10-22-2022 Patient encounter status Marco Antonio Egna DO Work Phone: [facility] Work Phone: Start: 10-19-2022 End: 10-19-2022 Patient encounter procedure Wilfred Egan DO Work Phone: [facility] Comment on above: Well adult exam (Beatris andreas Dx); Anxiety; Thyromegaly Start: 10-19-2022 End: 10-19-2022 Patient encounter status Wilfred Egan DO Work Phone: [facility] Start: 05-20-2022 End: 05-20-2022 Emergency department patient visit SAVAGE SCOTT Facility:[facility] Start: 05-20-2022 End: 05-20-2022 Emergency department patient visit Savage Scott MD Work Phone: [facility] Start: 02-01-2022 End: 02-01-2022 Patient encounter procedure Bowen Mariaa WAREHOUSE ATTENDANT Work Phone: [facility] Comment on above: No-show for appointm ent (Primary Dx) Start: 01-17-2022 Telephone encounter Bowen Laina ll WAREHOUSE ATTENDANT Work Phone: [facility] Comment on above: Consult (Initial [facility] W Pt Outreach) Start: 01-17-2022 End: 01-17-2022 Patient encounter procedure Poncho Jaime LEATHER SCRUBBER.ACTIVITY DIRECTOR Work Phone: [facility] Comment on above: Major depressive dis order, remission status unspecified, unspecified whether recurrent (Primary Dx); Anxiety; Chronic superficial gastritis without bleeding; Lower abdominal pain Procedures Date Procedure Procedure Detail Performing Clinician Start: 02-02-2025 Urnls dip stick/tabl et rgnt auto w/o microscopy Natali Zepeda LEATHER SCRUBBER.ACTIVITY DIRECTOR Work Phone: Plan of Treatment Date Care Activity Detail Author Start: 02-02-2026 GC (Gonorrhea) Scree anne () GC (Gonorrhea) Screening (-) [facility] Start: 02-02-2026 Screening for Chlamy ihsan trachomatis Chlamydia Screening () [facility] Start: 04-19-2025 Influenza vaccination Influenz a Vaccine (Season Ended) [facility] Start: 06-24-2024 End: 06-24-2024 Patient encounter procedure 06/24/2024 2:20 PM EST Office Visit [facility] [place] [address] [place], [place] [address] Wilfred Egan, [address] [place], [place] [id number] [facility] [place] Comment on above: Physical Start: 04-23-2024 End: 04-23-2024 ambulatory 04/23/2024 10:00 AM EDT [facility] [address] [place] [address] Nichol Dowell, LEATHER SCRUBBER.ACTIVITY DIRECTOR [address] [place] [phone] Anxiety [F41.9] Psychiatry Comment on above: Anxiety [F41.9] Start: 04-19-2024 Covid-19 Vaccine ( season) Covid-19 Vaccine () [facility] Start: 04-19-2024 Influenza vaccination Influenza Vacc ine (#1) [facility] Start: 03-30-2024 Urine microalbumin profile [facility] Start: 10-20-2023 COVID-19 VACCINE (#1) COVID-19 VACCI NE (#1) [facility] Comment on above: Postponed from 12/24 (Declined at this time) Start: 08-19-2023 Behavioral Health Screening Behavioral Health Screening [facility] Start: 04-19-2023 Covid-19 Vaccine ( season) Covid-19 Vaccine ( season) [facility] Start: 02-15-2023 Influenza vaccination INFLUENZA (#1) [facility] Comment on above: Postponed from 04/19 (Declined at this time) Start: 10-19-2022 End: 12-19-2022 CBC W Auto Differential panel - Blood CBC + DIFF Lab Routine Anxiety Thyromegaly Expected: 10/19/2022, Expires: 12/19/2022 [facility] Work Phone: Comment on above: Expected: 10/19/2022 , Expires: 12/19/2022 Start: 10-19-2022 End: 12-19-2022 Comprehensive metabolic 2000 panel - Serum or Plasma COMP METABOLIC PANEL Lab Routine Anxiety Thyromegaly Expected: 10/19/2022, Expires: 12/19/2022 [facility] Work Phone: Comment on above: Expected: 10/19/2022 , Expires: 12/19/2022 Start: 10-19-2022 End: 12-19-2022 THYROID PEROXIDASE ANTIBODY BLOOD THYROID PEROXIDASE ANTIBODY BLOOD Lab Routine Anxiety Thyromegaly Expected: 10/19/2022, Expires: 12/19/2022 [facility] Work Phone: Comment on above: Expected: 10/19/2022 , Expires: 12/19/2022 Start: 10-19-2022 End: 12-19-2022 Thyrotropin [Units/volume] in Serum or Plasma TSH BLD Lab Routine Anxiety Thyromegaly Expected: 10/19/2022, Expires: 12/19/2022 [facility] Work Phone: Comment on above: Expected: 10/19/2022 , Expires: 12/19/2022 Start: 10-19-2022 End: 12-19-2022 Thyroxine (T4) free [Mass/volume] in Serum or Plasma T4 FREE/FREE THYROX Lab Routine Anxiety Thyromegaly Expected: 10/19/2022, Expires: 12/19/2022 [facility] Work Phone: Comment on above: Expected: 10/19/2022 , Expires: 12/19/2022 Start: 10-19-2022 End: 12-19-2022 Triiodothyronine (T3) Free [Mass/volume] in Serum or Plasma T3 FREE BLD Lab Routine Anxiety Thyromegaly Expected: 10/19/2022, Expires: 12/19/2022 [facility] Work Phone: Comment on above: Expected: 10/19/2022 , Expires: 12/19/2022 Start: 2022 PAP TESTING PAP TESTING [facility] Start: 2022 Screening for malign ant neoplasm of cervix Cervical Cancer Screening [facility] Start: 04-19-2022 Influenza vaccination C [facility] Start: 2020 Third diphtheria, te tanus and acellular pertussis (DTaP) vaccination TDAP (ADULT) [facility] Start: 2019 CHLAMYDIA SCREENING (1824) CHLAMYDIA SCREENING (18) [facility] Start: 2019 Depression Screening Depression Scre ening [facility] Start: 2019 GC (GONORRHEA) SCREE ANNE (18-24) GC (GONORRHEA) SCREENING (18-24) [facility] Start: 2019 HEPATITIS C SCREENING HEPATITIS C [facility] Start: 2019 Hepatitis C screening Hepatitis C [facility] Start: 2019 HIV SCREENING HIV SCREENING [facility] Start: 2019 HIV screening HIV Screening [facility] Start: 2019 Screening for Chlamy ihsan trachomatis Chlamydia Screening () [facility] Start: 2019 Tetanus vaccination TETANUS [facility] Start: 2017 Meningococcal B Vacc ine (1 of 2 - Standard) Meningococcal B Vaccine (1 of 2 - Standard) [facility] Start: 2017 Meningococcal B Vacc ine: Consider Based On Risk (1 of 2 - Patient Seeks Protection) Meningococcal B Vaccine: Consider Based On Risk (1 of 2 - Patient Seeks Protection) [facility] Start: 2017 Screening for Chlamy ihsan trachomatis CHLAMYDIA SCREEN [facility] Start: 2016 HIV screening HIV SCREENING DISCUSSION [facility] Start: 2016 HPV Vaccine (1 - 3-d ose series) HPV Vaccine (1 - 3-dose series) [facility] Start: 2015 PEDS TO ADULT TRANSI TION ANNUAL ASSESSMENT PEDS TO ADULT TRANSITION ANNUAL ASSESSMENT [facility] Start: 2013 Adult depression scr eening assessment DEPRESSION SCREENING [facility] Start: 2013 PEDS TO ADULT TRANSI TION INITIAL DISCUSSION PEDS TO ADULT TRANSITION INITIAL DISCUSSION [facility] Start: 2012 HPV VACCINE (1 - 2-d ose series) HPV VACCINE (1 - 2-dose series) [facility] Start: 2012 Vaccination for rhett n papillomavirus HPV VACCINE ADOL (1 - 2-dose series) [facility] Start: 2011 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 B: 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 powerhouse based on risk (1 of 2 - Risk Bexsero 2-dose series) 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 B: Consider based on risk (1 of 2 - Risk Bexsero 2-dose series) [facility] Start: 2006 COVID-19 VACCINE (#1) COVID-19 VACCI NE (#1) [facility] Start: 2001 COVID-19 VACCINE (#1) COVID-19 VACCI NE (#1) [facility] Start: 2001 GONORRHEA SCREEN GONORRHEA SCREEN [facility] Start: 2001 Hepatitis C antibody , confirmatory test HEPATITIS C VIRUS SCREENING [facility] Bacteria identified in Urine by Culture BACTERIAL CULTURE, URINE Microbiology Routine Hematuria, unspecified type 02/02/2025 9:02 AM EDT [facility] Work Phone: BACTERIAL VAGINOSIS NAAT BACTERI AL VAGINOSIS NAAT Lab Routine Vaginal discomfort Encounter for screening for bacterial sexually transmitted disease 02/02/2025 9:02 AM EDT [facility] ADELITA/TRICHOMONAS NAAT ADELITA /TRICHOMONAS NAAT Lab Routine Vaginal discomfort Encounter for screening for bacterial sexually transmitted disease 02/02/2025 9:02 AM T [facility] Chlamydia trachomatis+Neisseria gonorrhoeae DNA [Presence] in Unspecified specimen by OLIVIA with probe detection GONORRHEA/CHLAMYDIA NAAT Lab Routine Vaginal discomfort Encounter for screening for bacterial sexually transmitted disease 02/02/2025 9:02 AM T [facility] End: 05-20-2022 Standard ECG [facility] Work Phone: Comment on above: One Time for 1 Occur rences starting 05/20/2022 until 05/20/2022 Immunizations Immunization Date Immunization Notes Care Provider Fa gemini 06-03-2020 influenza virus vacc ine, unspecified formulation Poncho Jaime APRN.CNP Work Phone: [facility] 04-07-2019 meningococcal polysaccharide (groups A, C, Y and W-135) diphtheria toxoid conjugate vaccine (MCV4P) Poncho Jaime APRN.CNP Work Phone: [facility] Work Phone: 03-30-2014 Meningococcal, MCV4, unspecified conjugate formulation(groups A, C, Y and W-135) Poncho Sheldon [employer]ATH[employer] [employer] Work Phone: [facility] Work Phone: 03-30-2014 tetanus toxoid, redu delfino diphtheria toxoid, and acellular pertussis vaccine, adsorbed Poncho Sheldon [employer]ATH[employer] [employer] Work Phone: [facility] Work Phone: 01-27-2007 diphtheria, tetanus toxoids and acellular pertussis vaccine Poncho Sheldon [employer] [employer] Work Phone: [facility] Work Phone: 01-27-2007 measles, mumps and rubella virus vaccine Poncho Sheldon [employer] [employer] Work Phone: [facility] Work Phone: 01-27-2007 poliovirus vaccine, inactivated Poncho Sheldon [employer] [employer] Work Phone: [facility] Work Phone: 01-27-2007 varicella virus vaccine Bridget lawrence Sheldon [employer] [employer] Work Phone: [facility] Work Phone: 12-28-2005 varicella virus vaccine Bridget lawrence Sheldon [employer] [employer] Work Phone: [facility] Work Phone: 12-21-2002 diphtheria, tetanus toxoids and acellular pertussis vaccine Poncho Sheldon LEATHER SCRUBBER.ACTIVITY DIRECTOR Work Phone: [facility] Work Phone: 09-21-2002 haemophilus influenz ae type b vaccine, HbOC conjugate Poncho Sheldon LEATHER SCRUBBER.ACTIVITY DIRECTOR Work Phone: [facility] Work Phone: 07-15-2002 hepatitis B vaccine, pediatric or pediatric/adolescent dosage Poncho Sheldon LEATHER SCRUBBER.ACTIVITY DIRECTOR Work Phone: [facility] Work Phone: 07-15-2002 measles, mumps and rubella virus vaccine Poncho Sheldon [employer] [employer] Work Phone: [facility] Work Phone: 07-15-2002 poliovirus vaccine, inactivated Poncho Sheldon [employer] Work Phone: [facility] Work Phone: 01-22-2002 haemophilus influenz ae type b vaccine, HbOC conjugate Poncho Sheldon [employer] Work Phone: [facility] Work Phone: 2001 diphtheria, tetanus toxoids and acellular pertussis vaccine Poncho Sheldon [employer] Work Phone: [facility] Work Phone: 2001 hepatitis B vaccine, pediatric or pediatric/adolescent dosage Poncho Sheldon [employer] Work Phone: [facility] Work Phone: 2001 diphtheria, tetanus toxoids and acellular pertussis vaccine Poncho Sheldon [employer] Work Phone: [facility] Work Phone: 2001 haemophilus influenz ae type b vaccine, HbOC conjugate Poncho Sheldon [employer] Work Phone: [facility] Work Phone: 2001 poliovirus vaccine, inactivated Poncho Sheldon [employer] Work Phone: [facility] Work Phone: 2001 diphtheria, tetanus toxoids and acellular pertussis vaccine Poncho Sheldon LEATHER SCRUBBER.ACTIVITY DIRECTOR Work Phone: [facility] Work Phone: 2001 haemophilus influenz ae type b vaccine, HbOC conjugate Poncho Sheldon LEATHER SCRUBBER.ACTIVITY DIRECTOR Work Phone: [facility] Work Phone: 2001 poliovirus vaccine, inactivated Poncho Jaime LEATHER SCRUBBER.ACTIVITY DIRECTOR Work Phone: [facility] Work Phone: 2001 hepatitis B vaccine, pediatric or pediatric/adolescent dosage Ponchosudhir Jaime LEATHER SCRUBBER.ACTIVITY DIRECTOR Work Phone: [facility] Work Phone: Payers Date Payer Category Payer Self-pay [id number] 2022 Self-pay [id number] 2015 [employer] BLUE CARD PPO OOS [id number] 2015 Unknown ANTHEM BLUE CARD PPO OOS [id number] 2015-Present [phone] [address] [place] [id number] PPO [id number] 2015 Unknown [employer]THEM BLUE CARD PPO OOS [id number] 2015-Present [phone] [address] [place] [id number] PPO [id number] 2015 Unknown [id number] 2001 Unknown [id number] 2001 Unknown [id number] 2001 Unknown [id number] 2001 Unknown [id number] Unknown [id number] Unknown [id number] Unknown [id number] Unknown [id number] Unknown [id number] .462 Unknown [id number] .462 Unknown [id number] Unknown [id number] Unknown [id number] Social History Date Type Detail Facility Start: [facility] Start: 01-17-2022 End: 03-04-2024 Alcohol intake Current non-drinker of alcohol (finding) [facility] Start: 2001 Sex Assigned At Not on file C [facility] Start: 01-07-2022 End: 05-20-2022 Exposure to SARS-CoV-2 (event) Not sure [facility] Tobacco smoking stat us NHIS Tobacco smoking consumption unknown [facility] Start: 10-19-2022 Tobacco use and exposure Smokeless tobacco non-user [facility] Work Phone: Start: 05-15-2023 End: 03-04-2024 History of Social function [facility] Start: 05-15-2023 End: 03-04-2024 Tobacco use panel [facility] Adult Depression Screening Assessment 0 [facility] Clinical Notes 01-17-2022 to 02-03-2025 Telephone Encounter - Maye Hernandez LPN - 02/03/2025 7:25 PM EDTTelephone Encounter - Maye Hernandez LPN - 02/03/2025 7:25 PM EDNatali Valadez APRN.PALMIRA - 02/02/2025 8:59 AM EDTAttachments Note Date & Type Note Facility 02-03-2025 Telephone encounter Note Patient notified.Maye Hernandez LPN [facility] 02-03-2025 Miscellaneous Notes Patient notified.Maye Hernandez LPN The urine culture has returned and has mixed microbes. Please follow up with PCP for repeat urine to ensure blood has resolved. Patient notified of results, verbalized understanding of instructions given. Ana Solano MA ----- Message from Lisa Banda APRN.ACTIVITY DIRECTOR sent at 02/03/2025 7:16 AM EDT ----- [...] Lisa Banda APRN.CNP documented in this encounter [facility] 02-03-2025 Telephone encounter Note The urine culture has returned and has mixed microbes. Please follow up with PCP for repeat urine to ensure blood has resolved. [facility] Work Phone: 02-03-2025 Telephone encounter Note Patient notified of results, verbalized understanding of instructions given. Ana Solano MA [facility] 02-03-2025 Telephone encounter Note ----- Message from [...] urine culture is still processing. Lisa Banda APRN.ACTIVITY DIRECTOR [facility] 02-03-2025 Telephone encounter Note ----- Message from Lisa Banda APRN.ACTIVITY DIRECTOR sent at 02/03/2025 7:16 AM EDT ----- Please advise patient she tested positive for yeast and BV. She was prescribed fluconazole at visit for yeast, she should take this as directed. I have sent a prescription to her pharmacy for Flagyl to treat the BV. Avoid alcohol while on this medication. The urine culture is still processing. Lisa Banda APRN.ACTIVITY DIRECTOR [facility] 02-02-2025 Note HNO ID: [id number] Author: NATALI ZEPEDA APRN.ACTIVITY DIRECTOR Service: ? Author Type: Nurse Practitioner Type: [...] plan 11/24/2020 placed on care plan by [facility] for excessive visits PAST SURGICAL [...] unspecified type (R31 (more content not included)... [facility] 02-02-2025 History of Present illness Narrative [facility] Gloria Nettles is a 24 year [...] plan 11/24/2020 placed on care plan by [facility] for excessive visits PAST SURGICAL [...] results to guide treatment and Recording using Cogo software for draft documentation of the visit was discussed with the patient/authorized lifeline representatives; all questions welcomed and answered. Patient/authorized lifeline representatives agreed to proceed MDM Procedures documented in this encounter [facility] 03-04-2024 Instructions Poncho Jaime APRN.PALMIRA - 03/04/2024 9:53 AM EDT Schedule with [facility]-psychiatry Continue your current medications. We'll add the Zoloft for you to take in the evenings. documented in this encounter [facility] 03-04-2024 Note HNO ID: [id number] Author: PONCHO JAIME APRN.CNP Service: ? Author Type: Nurse Practitioner Type: Progress Notes Filed: 03/04/2024 18:30 Note Text: Chief Complaint Patient presents with: ER F/U: Abd pain, seeing gastro next month, anxiety HPI Gloria Nettles is a 23 year old female who presents here today for Above Complaints.. [facility] ER on 02/27 with abdominal pain and anxiety. Is seeing Dr. Adkins GI at [facility]. Stress/anxiety-work has been frustrating lately. Has been [...] somewhat and this lasts a few hours. Dpebap-qtg-naprg't like to take this a lot because [...] plan 11/24/2020 placed on care plan by [facility] for excessive visits Previous Surgical [...] with plan to see Dr. Adkins with [facility]. - SERTRALINE 50 MG TABLET - CONSULT TO PSYCHIATRY 2. Abdominal cramping - ICD9: 789.00, ICD10: R10.9 Continue with plan to see Dr. Adkins with [facility]. - SERTRALINE 50 MG TABLET - CONSULT TO PSYCHIATRY 3. Nausea and vomiting, unspecified vomiting type - ICD9: 787.01, ICD10: R11.2 Continue with plan to see Dr. Adkins with [facility]. - SERTRALINE 50 MG TABLET - CONSULT TO PSYCHIATRY Poncho Jaime APRN.[facility] 03-04-2024 History of Present illness Narrative Chief Complaint Patient presents with: ER F/U: Abd pain, seeing gastro next month, anxiety HPI Gloria Nettles is a 23 year old female who presents here today for Above Complaints.. [facility] ER on 02/27 with abdominal pain and anxiety. Is seeing Dr. Adkins GI at [facility]. Stress/anxiety-work has been frustrating lately. Has been [...] somewhat and this lasts a few hours. Zrceqe-krh-hplhy't like to take this a lot because [...] plan 11/24/2020 placed on care plan by [facility] for excessive visits Previous Surgical [...] with plan to see Dr. Adkins with [facility]. - SERTRALINE 50 MG TABLET - CONSULT TO PSYCHIATRY 2. Abdominal cramping - ICD9: 789.00, ICD10: R10.9 Continue with plan to see Dr. Adkins with [facility]. - SERTRALINE 50 MG TABLET - CONSULT TO PSYCHIATRY 3. Nausea and vomiting, unspecified vomiting type - ICD9: 787.01, ICD10: R11.2 Continue with plan to see Dr. Adkins with [facility]. - SERTRALINE 50 MG TABLET - CONSULT TO PSYCHIATRY Poncho Jaime APRN.ACTIVITY DIRECTOR documented in this encounter [facility] 10-22-2022 History of Present illness Narrative CC: [...] home. She is renting a home in [place]. 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 She is unsure what her future goals in life are- unsure if will go to school or find another job etc. Does have friend support. PAST MEDICAL HISTORY Diagnosis Date Intractable vomiting with nausea, unspecified vomiting type Marijuana user Noncompliance with treatment plan 11/24/2020 placed on care plan by [facility] for excessive visits PAST SURGICAL [...] diet of 1000 mg/day for under 50, [id number] mg/day for 50+ 2. Anxiety - ICD9: [...] with the plan. Wilfred Egan DO [address] [place] [address] documented in this encounter [facility] 05-20-2022 Hospital Discharge instructions Shaun Bean MD - 05/20/2022 5:40 AM EDT You came to the Emergency Department today for anxiety. You were given Ativan with improvement in your symptoms as well as Compazine for nausea. The following attachments cannot be sent through Care Everywhere.Anxiety Disorders: General Info (Tajik)documented in this encounter [facility] 05-20-2022 Emergency department Note Patient c/o anxiety and panic attacks. Patient states that panic attack is getting better but is not going away. Patient concerned that her anxiety is keeping friends awake. Patient denies SI/HI [facility] 05-20-2022 Emergency department Note Patient c/o anxiety and panic attacks. Patient states that panic attack is getting better but is not going away. Patient concerned that her anxiety is keeping friends awake. Patient denies SI/HI documented in this encounter [facility] 02-01-2022 History of Present illness Narrative Behavioral Health Social Work Assessment Patient was seen for an initial evaluation. All information is from patient report except when noted. This evaluation is NOT intended for forensic, disability, or child custody purposes. Informed consent was discussed and signed by the patient. -Pt was sent mychart msg with consent for tx -mychart msg viewed [facility] Assessment: Virtual No Show 9:10am Pt had not joined visit -[facility] attempted to contact Pt -no answer -left vm, if available to join visit please join visit, SW will remain on visit for additional 15 min, if unable please call to reschedule appt 9:50am -no response from Pt -sent mychart msg to reschedule appt, -included no show ltr Patient identified for [facility] from: PCP (Poncho Jaime CNP) Reason for referral: [facility] Assessment (failed mental health tx,depression/anxiety) [facility] encounter type: MyChart Message Attempts to Outreach: [...] N/A BUDDY Brenner documented in this encounter [facility] 01-17-2022 Miscellaneous Notes BEHAVIORAL HEALTH SOCIAL WORK CONSULT NOTE Service Date: January 17, 2022 Patient was identified by name and Patient: Gloria Nettles [address] [facility] [phone] (home) [phone] (cell) PCP: Wilfred Egan, DO [address] [facility] [address] Patient identified for [facility] from: PCP (Poncho Jaime CNP) Reason for referral: [facility] Assessment (failed mental health tx,depression/anxiety) [facility] encounter type: Telephone Encounter Assessment: [facility] received a consult from Poncho Jaime CNP, for assessment failed mental health tx, depression/anxiety [facility] reviewed Pt's chart/insurance [facility] contacted Pt -scheduled 02-01-22 at 9am virtual [...] -Patient advised of treatment options available at [facility]. Patient was informed that they will be moving on for further evaluation if seeking treatment within the [facility] system. Reason for External Referrals : N/A Intervention: Supportive Listening Scheduled Assessment Offered virtual visit Resources Provided: Further evaluation and assessment Virtual Visit Time Spent: 15 minutes BUDDY Brenner documented in this encounter [facility] 01-17-2022 Instructions Poncho Jaime APRN.PALMIRA - 01/17/2022 8:54 AM EDT Start on Cymbalta. Take the Ativan (lorazepam) as needed for severe anxiety/depression. Take the hycosamine as needed for cramping. Take Zofran as needed for the nausea/vomiting. documented in this encounter [facility] 01-17-2022 History of Present illness Narrative Chief [...] not have heartburn. Has a job at [employer]. Has been off work the past 2 days because has not been feeling well. They are pretty understanding with her. Is embarrassing and frustrating. Multiple ER visits. Extensive GI workup. Past medical history, appointments, medications, allergies reviewed. Has stopped taking the Zoloft. Did IOP program at [facility]. Was then prescribed Remeron-felt poorly on this [...] plan 11/24/2020 placed on care plan by [facility] for excessive visits Previous Surgical [...] counseling and education. 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 Atrophic gastritis without mention of hemorrhage Lower abdominal pain Abdominal pain, other specified site [facility] No-show for appointment- Primary [facility] Anxiety- Primary Anxiety state, unspecified [facility] Well adult exam- Primary Routine general medical examination at a health care facility Anxiety Anxiety state, unspecified Thyromegaly Goiter, unspecified [facility] Diagnosis Anxiety- Primary Anxiety state, unspecified Abdominal cramping Abdominal pain, unspecified site Nausea and vomiting, unspecified vomiting type [facility] Hematuria, unspecified type- Primary Vaginal discomfort Unspecified symptom associated with female genital organs Encounter for screening for bacterial sexually transmitted disease documented in this encounter [facility] Summary Purpose Family History No Family History Records FoundNo Family History Records FoundNo Family History Records FoundNo Family History Records FoundNo Family History Records Found Advance Directives No Advanced Directives Records FoundDocuments on File Type Date Recorded 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 Advance Directive(s) 10/20/2020 10:47 AM Reason for Referral Specialty Diagnoses / Procedures Referred By Contac t Referred To Contact Procedures ECG Savage Scott MD [address] [place] [address] Referral ID Status Reason Start Date Expiration Date V isits Requested Visits Authorized [id number] New Request 05/20/2022 06/14/2023 1 1 Specialty Diagnoses / Procedures Referred By Contac t Referred To Contact Diagnoses Anxiety Abdominal cramping Nausea and vomiting, unspecified vomiting type Procedures CONSULT TO PSYCHIATRY OFFICE/OUTPATIENT NEW HIGH MDM 60 MINUTES Poncho Jaime, LEATHER SCRUBBER.ACTIVITY DIRECTOR [address] [place] [address] Referral ID Status Reason Start Date Expiration Date Visits Requested Visits Authorized [id number] Pending Review PCP Requested Referral 03/04/2024 03/04/2025 1 1 Additional Source Comments INFORMATION SOURCE (unrecogn ized section and content) DATE CREATED AUTHOR 10/27/2020 [facility] DATE CREATED AUTHOR AUTHOR'S ORGANIZ ATION 06/14/2022 [facility] DATE CREATED AUTHOR AUTHOR'S ORGANIZ ATION 05/23/2023 [facility] DATE CREATED AUTHOR AUTHOR'S ORGANIZ ATION 02/04/2025 [facility] DATE CREATED AUTHOR AUTHOR'S ORGANIZ ATION 05/14/2025 [facility] Source Comments (unrecognize d section and content) In the event this informatio n is protected by the Federal Confidentiality of Alcohol and Drug Abuse Patient Records regulations: The Federal rules restrict any use of the information to criminally investigate or prosecute any alcohol or drug abuse patient.[facility]In the event this information is protected by the Federal Confidentiality of Alcohol and Drug Abuse Patient Records regulations: The Federal rules restrict any use of the information to criminally investigate or prosecute any alcohol or drug abuse patient.[facility] DaytonIn the event this information is protected by the Federal Confidentiality of Alcohol and Drug Abuse Patient Records regulations: The Federal rules restrict any use of the information to criminally investigate or prosecute any alcohol or drug abuse patient.[facility] DaytonIn the event this information is protected by the Federal Confidentiality of Alcohol and Drug Abuse Patient Records regulations: The Federal rules restrict any use of the information to criminally investigate or prosecute any alcohol or drug abuse patient.[facility] DaytonIn the event this information is protected by the Federal Confidentiality of Alcohol and Drug Abuse Patient Records regulations: The Federal rules restrict any use of the information to criminally investigate or prosecute any alcohol or drug abuse patient.[facility] DaytonIn the event this information is protected by the Federal Confidentiality of Alcohol and Drug Abuse Patient Records regulations: The Federal rules restrict any use of the information to criminally investigate or prosecute any alcohol or drug abuse patient.[facility] DaytonIn the event this information is protected by the Federal Confidentiality of Alcohol and Drug Abuse Patient Records regulations: The Federal rules restrict any use of the information to criminally investigate or prosecute any alcohol or drug abuse patient.[facility] DaytonIn the event this information is protected by the Federal Confidentiality of Alcohol and Drug Abuse Patient Records regulations: The Federal rules restrict any use of the information to criminally investigate or prosecute any alcohol or drug abuse patient.[facility] Reason for Visit (unrecogniz ed section and content) Reason Comments Anxiety Depression Abdominal Pain Vomiting Reason Comments Consult Initial [facility] Pt Outr each Reason Comments Consult [facility] Assessment Virt l Specialty Diagnoses / Procedures Referred By Contac t Referred To Contact Psychiatry / ADULT PSYCHOLOGY Diagnoses 1st eval Procedures VIDEO PSYC/PSYL Poncho Delgado, LEATHER SCRUBBER.ACTIVITY DIRECTOR [address] [place] [address] Bowen Leroy LISW [address] [place] [address] Referral ID Status Reason Start Date Expiration Date V isits Requested Visits Authorized [id number] Authorized 08/19/2021 08/18/2022 99 99 Reason Comments Anxiety Reason Comments Hospital F/U Reason Comments ER F/U Abd pain, seeing gas tro next month, anxiety Reason Comments Hematuria x 2 days Care Teams (unrecognized sec tion and content) Janitor Head Relationship Specialty Start Date End Date Wilfred Egan DO [address] [place] [address] PCP - General Family Practice 09/05/15 Janitor Head Relationship Specialty Start Date End Date Wilfred Egan DO [address] [place] [address] PCP - General Family Practice 09/05/15 Janitor Head Relationship Specialty Start Date End Date Wilfred Egan DO [address] [place] [address] PCP - General Family Practice 09/05/15 Janitor Head Relationship Specialty Start Date End Date Wilfred Egan DO [address] [place] [address] PCP - General Family Medicine 09/05/15 Janitor Head Relationship Specialty Start Date End Date Wilfred Egan DO [address] [place] [address] PCP - General Family Medicine 09/05/15 Janitor Head Relationship Specialty Start Date End Date Wilfred Egan DO [address] [place] [address] PCP - General Family Medicine 09/05/15 Poncho Jaime APRN.ACTIVITY DIRECTOR [address] [place] [address] [facility] 07/26/24 Olivia Sin APRN.ACTIVITY DIRECTOR [address] [place], [place] [address] [facility] 02/01/25 Janitor Head Relationship Specialty Start Date End Date Wilfred Egan DO [address] [place] [address] PCP - General Family Medicine 09/05/15 Poncho Jaime APRN.ACTIVITY DIRECTOR [address] [place] [address] [facility] 07/26/24 Olivia Sin APRN.ACTIVITY DIRECTOR [address] [place], [place] [id number] [facility] 02/01/25 Scheduled Active and Recently Administ ered [...] BE BASED ON THE PRIMARY CLINICAL RECORDS. [facility] [employer] [facility]. provides no warranty or guarantee of the accuracy or completeness of information in this document.
[2025-05-21 16:31] LABS: Barbiturate Urine NEGATIVE (< 200 ng/mL); Benzodiazepine Urine NEGATIVE (< 200 ng/mL); PCP Urine NEGATIVE (< 25 ng/mL); THC Urine PRESUMPTIVE POSITIVE (< 50 ng/mL)
[2025-05-24 20:08] LABS: Chlamydia By Nucleic Acid AMP Negative (Negative); Gonococcus By Nucleic Acid AMP Negative (Negative)
== END | disposition home or self-care (01) ==
LOC: LABSPEC 15:06
PROVIDERS: PCP Student in an Organized Health Care Education/Training Program; Visit Provider Advanced Practice Midwife
DX: O99.320 Drug use complicating pregnancy, unspecified trimester (principal); F12.90 Cannabis use, unspecified, uncomplicated; Z3A.00 Weeks of gestation of pregnancy not specified; Z12.4 Encounter for screening for malignant neoplasm of cervix
CPT/HCPCS: 80307; 87077; 87086; 87088; 87186; 87491; 87591; 88175; G0145

== ENCOUNTER 2025-06-03 04:42 | Emergency (ER) | payer BC, SELFPAY ==
[2025-06-03 04:43] VITALS: BP 142/84; PULSE 72; RESP 18; TEMP 36.7; O2SAT 100; BMI 19.8
[2025-06-03] MEDS: 0.9% Normal Saline (1000mL) 1,000 ML 999 ML IV (05:06)
[2025-06-03 05:09] LABS: Mucous, Urine 0 SEEN /hpf (<or=2+); Red Blood Cells-Urine 0 SEEN /hpf (0-5)
[2025-06-03 05:11] LABS: Color, Urine Yellow (Yellow); Glucose, Dipstick Normal (Normal); Ketone-Dipstick 50 mg/dl (Negative); Leukocyte Esterase-Dipstick Negative /ul (Negative); Nitrite-Dipstick Negative (Negative); Occult Blood-Urine Negative /ul (Negative); Protein-Dipstick 30 mg/dl (Negative); Specific Gravity, Urine 1.025 (1.002-1.030); Urine Bilirubin Dipstick Negative (Negative)
--- OUTSIDE RECORDS SUMMARY | 2025-06-03 05:13 | XMS RPT_ITS | CCD ---
Author Organization [facility] Care Team Providers Care Lead Athlete Name Role Phone Avtar BIRMINGHAM Wilfred L Primary Care Provider Unavailable Primary Care Provider UnavailSAVAGE Ibanez Attending Unavailable Egan DO Wilfred L Primary Care Provider CHASITY PARIKH Attending Unavailable EGAN, WILFRED L Primary Care Unavailable EGAN, WILFRED L Primary Care Unavailable RIK TORRES Attending Unava ilable EGAN WILFRED L Primary Care Unavailable CHASITY PARIKH Attending Unavailable Egan DO Wilfred L Primary Care Provider Addison [employer] AUTOMOTIVE.Poncho CHAVIS Unavailable Merrick [employer].Olivia CHAVIS Unavailable EGAN, WILFRED L Primary Care Unavailable NATALI ZEPEDA Attending Unavailable PONCHO JAIME Attending Unavailable EGAN, WILFRED L Primary Care Unavailable Raina Crowe Attending Unavailable Egan, Wilfred Primary Care Unavailable Kyleigh Joseph Referring Unavailable Egan, Wilfred Primary Care Unavailable Kyleigh Joseph Attending Unavailable Fay De Los Santos Attending Unavailable Egan, Wilfred Primary Care Unavailable Zafar Marrero Attending Unavailable Egan, Wilfred Primary Care Unavailable Egan, Wilfred Primary Care Unavailable Fay De Los Santos Attending Unavailable Fernando Sanchez Attending Unavailable Egan, Wilfred Primary Care Unavailable Ignacio Murphy Attending Unavailable Egan, Wilfred Primary Care Unavailable Egan, Wilfred Primary Care Unavailable Kyleigh Joseph Attending Unavailable Kyleigh Joseph Referring Unavailable Raina Crowe Attending Unavailable Egan, Wilfred Referring Unavailable Egan, Wilfred Primary Care Unavailable Raina Crowe Attending Unavailable Egan, Wilfred Referring Unavailable Egan, Wilfred Primary Care Unavailable Medications [...] on above: Take 1 capsule by mo [facility] once daily. fluconazole 150 mg oral tablet [...] Comment on above: Take 1 tablet by [facility] every 8 hours as needed. sertraline 50 [...] mg oral tablet (1 source) Phenothiazine Start: End: prochlorperazine (COMPAZINE) tablet 5 mg Start: 05-20-2022 End: 05-20-2022 prochlorperazine (COMPAZINE) tablet 5 mg Problems Active Problems Problem Classification Problem Date Documented Date Episodic/Chronic Anxiety disorders (15 sources) Anxiety; Translations: [Anxiety disorder, unspecified] Onset: [...] single episode, unspecified] Chronic Nausea and vomiting (6 sources) Nausea with vomiting, unspecified; Translations: [Vomiting, unspecified] Onset: 12-28-2022 Episodic Other complications of (1 source) Supervision of high risk , unspecified, unspecified trimester; Translations: [Supervision of high risk , unspecified, unspecified trimester] Onset: 05-21-2025 Episodic Other female genital disorders (1 source) Vaginal [...] of patient's decision for other reasons] Episodic Residual codes; unclassified (1 source) 8 weeks gestation of ; Translations: [8 weeks gestation of ] Onset: 05-21-2025 Episodic Substance-related disorders (3 sources) Cannabis use, unspecified, uncomplicated; Translations: [Cannabis [...] Results Test Name Value Interpretation Reference Range Facility PAP I-G w/rfx hrHPV-Aptimaon 05-26-2025 ADEQ Comment Normal . [facility] Comment on above: Order Comment: Speci men Comment: [id number] Comment: Source.............CervixSpecimen Comment: No. of containers..01 ThinPrep Vial Result Comment: Sati sfactory for evaluation. Endocervical and/or squamous metaplastic cells (endocervical component) are present. Performed By: #### L 500.2500, L100.0100, L700.8000 #### [facility] [address] [place], [address] COMM . Normal . [facility] Comment on above: Order Comment: Speci men Comment: [id number] Comment: Source.............CervixSpecimen Comment: No. of containers..01 ThinPrep Vial Performed By: #### L 500.2500, L100.0100, L700.8000 #### [facility] [address] [place], [place], [id number] COMMENT Comment Normal . [facility] Comment on above: Order Comment: Speci men Comment: [id number] Comment: Source.............CervixSpecimen Comment: No. of containers..01 ThinPrep Vial Result Comment: This liquid based ThinPrep(R) pap test was interpreted using the TRIXandTRAX(R) Genius(TM) Cervical Algorithm whole slide imaging system. Performed By: #### L 500.2500, L100.0100, L700.8000 #### [facility] [address] [place], [place], [address] DIAG Comment Normal . [facility] Comment on above: Order Comment: Speci men Comment: [id number] Comment: Source.............CervixSpecimen Comment: No. of containers..01 ThinPrep Vial Result Comment: NEGA TIVE FOR INTRAEPITHELIAL LESION OR MALIGNANCY. Performed By: #### L 500.2500, L100.0100, L700.8000 #### [facility] [address] [place], [place], [id number] HPV RFLX Comment Normal . [facility] Comment on above: Order Comment: Speci men Comment: [id number] Comment: Source.............CervixSpecimen Comment: No. of containers..01 ThinPrep Vial Result Comment: The HPV DNA reflex criteria were not met with this specimen result therefore, no HPV testing was performed. Performed at: [address] [id number] Corporate Executive Chef: Carlie Larson MD, Phone: [phone] Performed By: #### L 500.2500, L100.0100, L700.8000 #### [facility] [address] [place], [address] PAPSMR Comment Normal . [facility] Comment on above: Order Comment: Speci men Comment: [id number] Comment: Source.............CervixSpecimen Comment: No. of containers..01 ThinPrep Vial Result Comment: The Pap smear is a screening test designed to aid in the detection of premalignant and malignant conditions of the uterine cervix. It is not a diagnostic procedure and should not be used as the sole means of detecting cervical cancer. Both false-positive and false-negative reports do occur. Performed By: #### L 500.2500, L100.0100, L700.8000 #### [facility] [address] [place], [address] PERFORM Comment Normal . [facility] Comment on above: Order Comment: Speci men Comment: [id number] Comment: Source.............CervixSpecimen Comment: No. of containers..01 ThinPrep Vial Result Comment: Kody Johnson, Fbi Investigator (ASCP) Performed By: #### L 500.2500, L100.0100, L700.8000 #### [facility] [address] [place], [address] Chlamydia/GC OLIVIA aptimaon CHLAMY,NUC ACID Negative Normal Negative [facility] Comment on above: Performed By: #### L 500.2500, L100.0100, L700.8000 #### [facility] [address] [place], [address] GC BY NUC ACID Negative Normal Negative [facility] Comment on above: Result Comment: Perf ormed at: =G - [facility] [address] [facility], [place], [facility] W [id number] Corporate Executive Chef: Carlie Larson MD, Phone: [phone] Performed By: #### L 500.2500, L100.0100, L700.8000 #### [facility] [address] [place], [address] Urine Cultureon 05-23-2025 URC Klebsiella pneumonia e sp pneum Spring Count >100,000 Klebsiella pneumoniae sp pneum: REACTION Ampicillin Islt ROMI >=32 Ampicillin+Sulbac Islt ROMI 4 S Cefepime Islt ROMI <=0.12 S cefTRIAXone Islt ROMI <=0.25 S Ciprofloxacin Islt ROMI <=0.06 S B-Lactamase Extended Susc Islt NEG Gentamicin Islt ROMI <=1 S levoFLOXacin Islt ROMI <=0.12 S Meropenem Islt ROMI <=0.25 S Nitrofurantoin Islt ROMI 64 I Pip+Tazo Islt ROMI <=4 S TMP SMX Islt ROMI <=20 S Normal [facility] Comment on above: Performed By: #### L 500.2500, L100.0100, L700.8000 #### [facility] [address] [place], [place], [address] Methods Analyst Data Processing Office Visit Reporton 05-21-2025 Methods Analyst Data Processing Office Visit Report [facility], [address] [place] [address] OFFICE VISIT Date of Service: 05/21/25 MR#: [id number] Acct: [id number] Name: GLORIA NETTLES TOBIAS Rep #: [id number] : 2000 Provider: MARYLIN Crum ams Age/Sex: 24/F Location[place] [facility] [place] Status: Signed Intake Vital Signs 10/20/24 01:49 05/13/25 10:05 05/21/25 11:23 Height 5 ft 2 in 5 ft 3 in 5 ft 3 in Weight: 110 lb BMI 19.5 BP 120/79 Intake Visit Reasons: *NEW* NOB LMP 03/25, SAIMA 5/14 Publicity Agent Required: No Is patient in pain?: No Allergies No Known Allergies Allergy (Verified 05/21/25 11:26) Medications ???Medication ???Instructions ???Recorded ???Confirmed ???Type hydroxyzine pamoate 25 mg capsule 25 - 50 mg (1 - 2 x 25 mg) PO TID 05/13/25 05/21/25 Rx PRN PRN Anxiety #30 CAPSULES ondansetron 4 mg disintegrating 4 mg PO Q8H PRN PRN Nausea #20 tab s 05/13/25 05/21/25 Rx tablet pyridoxine (vitamin B6) 10 mg 10 mg PO TID PRN nausea and 05/21/25 Rx tablet vomiting #20 tabs Last Menstrual Period: 03/25/25 Zika: Zika virus screening: Negative : Yes Have you fallen in the past year?: No PFSH PFSH Medical History Marijuana use Panic disorder Major depressive disorder, single episode, severe without psychosis Generalized anxiety disorder Surgical History Hx of colonoscopy History of esophagogastroduodenoscopy (EGD) Family History Mother Thyroid disorder Father Asthma COPD (chronic obstructive pulmonary disease) Grandmother Cardiac pacemaker Social History adopted: No household members: other details: Mom step dad number of children: 0 current occupational status: employed current occupation: [email or web address] current occupational exposures/hazards: No pets and animals: [...] times per week duration: < 15 minutes/day dustin/baptist: None seatbelt use: always do you feel safe at home: Yes additional social history: BF: Dav - Foot And Ankle Surgeon @ [employer] History 1 Elective abortions 0 Hx Para 0 Spontaneous abortions 0 Hx # Term Pregnancies Ectopic pregnancies Hx # Pregnancies Multiple births # of living children HPI *NEW* NOB LMP 03/25, SAIMA 12/30 Details: GLORIA NETTLES is a 24 year old who presents for New OB visit. OB Visit SAIMA Calculator Estimated Delivery Date Method Current WG Current Estimate 12/30/25 LMP (Certain) 8w 1d Other Estimates 01/03/26 Ultrasound #1 7w 4d Estimated Due Date: 12/30/25 Expected Delivery Route/Plan Labor Preferences- CB/BF classes: [] labor support person: [] labor intervention preferences: [] pain management options preferred: [] cut cord/dad catch: [] : [] PP control planned: [] discussed possible routes of delivery and associated risks: [] special requests: [] Specific Issue/Plans Covid status: [] Flu vaccine: [] Tdap vaccine: [] Rhogam: [] LARC form signed: [] Problem list reviewed and updated with the most current plan of care details and appropriate orders placed. Relevant counseling for the gestational age provided. Continue routine care and follow up unless otherwise noted in visit notes/problem list details Initial Weight: 110 lb Date -???-???-???-???-???-???-???- ???-???-???-???-???- EGA Weight BP Urine Prot -???-???-???-???-???-???-???- ???-???-???-???-???- Glucose FHR FuHt Pres Dilation -???-???-???-???-???-???-???- ???-???-???-???-???- Effaced St Visit Note 10/03/25 -???-???-???-???-???-???-???- ???-???-???-???-???- 8w 1d 110 lb (+0 oz) 120/79 -???-???-???-???-???-???-???- ???-???-???-???-???- 148 -???-???-???-???-???-???-???- ???-???-???-???-???- KW CRL 1.33 and cons with dates. unsure if she would like genetics. FOB not involved currently and she is feeling uncertain about the . It was not planned and does not know if she can handle p (more content not included)... Normal [facility] Urine Drug Screen (VISTA)on 05-21-2025 AMPHETAMINES Negative Normal <1000 ng/mL [facility] Comment on above: Order Comment: UNK Performed By: #### L 500.2500, L100.0100, L700.8000 #### [facility] [address] [place], [address] BARBITIURATES Negative Normal < 200 ng/mL [facility] Comment on above: Order Comment: UNK Performed By: #### L 500.2500, L100.0100, L700.8000 #### [facility] [address] [place], [place], [facility] BENZODIAZIPINE Negative Normal < 200 ng/mL [facility] Comment on above: Order Comment: UNK Performed By: #### L 500.2500, L100.0100, L700.8000 #### [facility] [address] [place], [place], [id number] ([address] BUP Ur Drug Scr Negative Normal < 200 ng/mL [facility] Comment on above: Order Comment: UNK Performed By: #### L 500.2500, L100.0100, L700.8000 #### [facility] [address] [facility] [address] COCAINE Negative Normal < 300 ng/mL [facility] Comment on above: Order Comment: UNK Performed By: #### L 500.2500, L100.0100, L700.8000 #### [facility] [address] [place] [address] Fentanyl Negative Normal <5 ng/mL [facility] Comment on above: Order Comment: UNK Result Comment: CONF IRMATORY TESTING FOR ALL POSITIVE URINE DRUG SCREEN RESULTS WILL ONLY BE SENT OUT UPON PHYSICIAN ORDER. Mandy Pro Urine Drug Screen methods provide only preliminary analytical test results. A more specific alternate chemical method must be used in order to obtain a confirmed analytical result. Gas chromatography/mass spectrometery (GC/MS) is the preferred confirmatory method. Clinical consideration and professional judgement should be applied to any drug of abuse test result, particularly when preliminary positive results are used. Urine TCA testing must be ordered separately. Use test mnemonic: UTCA Performed By: #### L 500.2500, L100.0100, L700.8000 #### [facility] [address] [place] [address] METHADONE Negative Normal < 300 ng/mL [facility] Comment on above: Order Comment: UNK Performed By: #### L 500.2500, L100.0100, L700.8000 #### [facility] [address] [place] [address] OPIATES Negative Normal < 300 ng/mL [facility] Comment on above: Order Comment: UNK Performed By: #### L 500.2500, L100.0100, L700.8000 #### [facility] [address] [place] [id number] OXYCODONE Negative Normal < 100 ng/mL [facility] Comment on above: Order Comment: UNK Performed By: #### L 500.2500, L100.0100, L700.8000 #### [facility] [address] [place], [address] PCP Negative Normal < 25 ng/mL [facility] Comment on above: Order Comment: UNK Performed By: #### L 500.2500, L100.0100, L700.8000 #### [facility] [address] [place], [address] THC Positive Normal < 50 ng/mL [facility] Comment on above: Order Comment: UNK Result Comment: If c onfirmation testing is needed, a separate order will be required to send out testing to the reference laboratory. Performed By: #### L 500.2500, L100.0100, L700.8000 #### [facility] [address] [place], [address] [id number] 05-13-2025 ABO and Rh group Nom (Bld) Blood group A Rh(D) positive Normal [facility] Comment on above: Performed By: #### L 500.2500, L100.0100, L700.8000 #### [facility] [address] [place], [address] CBC W/Diff, Automatedon 04-20 Absolute Lymph 0.56 X10 3/uL Low 0.83-4.51 [facility] Comment on above: Performed By: #### L 500.2500, L100.0100, L700.8000 #### [facility] [address] [place], [address] Absolute Neut 13.3 X10 3/uL High 2.0-7.7 [facility] Comment on above: Performed By: #### L 500.2500, L100.0100, L700.8000 #### [facility] [address] [place], [address] Basophils/100 WBC (Bld) 0.1 % Normal 0-1 [facility] Comment on above: Performed By: #### L 500.2500, L100.0100, L700.8000 #### [facility] [address] [place], [address] Eosinophils/100 WBC (Bld) 0.0 % Normal 0-5 [facility] Comment on above: Performed By: #### L 500.2500, L100.0100, L700.8000 #### [facility] [address] [place], [address] Erythrocyte distribution width (RBC) [Ratio] 12.1 % Normal 11.6-14.6 [facility] Comment on above: Performed By: #### L 500.2500, L100.0100, L700.8000 #### [facility] [address] [place], [address] Hematocrit (Bld) [Volume fraction] 35.4 % Low 37-47 [facility] Comment on above: Performed By: #### L 500.2500, L100.0100, L700.8000 #### [facility] [address] [place], [address] Hemoglobin (Bld) [Mass/Vol] 13.2 g/dL Normal 12.0-15.0 [facility] Comment on above: Performed By: #### L 500.2500, L100.0100, L700.8000 #### [facility] [address] [place], [address] IG% 0.400 Normal 0.0-0.9 [facility] Comment on above: Result Comment: IG% - Immature Granulocytes (promyelocytes, myelocytes and metamyelocytes) > 1% indicates that a LEFT SHIFT is Present. Performed By: #### L 500.2500, L100.0100, L700.8000 #### [facility] [address] [place], [address] Lymphocytes/100 WBC (Bld) 4.0 % Low 19-41 [facility] Comment on above: Performed By: #### L 500.2500, L100.0100, L700.8000 #### [facility] [address] [place], [address] MCH (RBC) [Entitic mass] 32.6 pg High 27.0-32.0 [facility] Comment on above: Performed By: #### L 500.2500, L100.0100, L700.8000 #### [facility] [address] [place], [address] MCHC (RBC) [Mass/Vol] 37.3 g/dL High 32-36 [facility] Comment on above: Performed By: #### L 500.2500, L100.0100, L700.8000 #### [facility] [address] [place], [address] MCV (RBC) [Entitic vol] 87.4 fL Normal 81-99 [facility] Comment on above: Performed By: #### L 500.2500, L100.0100, L700.8000 #### [facility] [address] [place], [address] Monocytes/100 WBC (Bld) 1.1 % Normal 0-10 [facility] Comment on above: Performed By: #### L 500.2500, L100.0100, L700.8000 #### [facility] [address] [place], [address] Neutrophils/100 WBC (Bld) 94.4 % High 47-70 [facility] Comment on above: Performed By: #### L 500.2500, L100.0100, L700.8000 #### [facility] [address] [place], [address] Nucleated RBC (Bld) [#/Vol] 0 10*3/uL Normal 0-5 [facility] Comment on above: Performed By: #### L 500.2500, L100.0100, L700.8000 #### [facility] [address] [place], [address] Platelet mean volume (Bld) [Entitic vol] 9.7 fL Normal 6.2-12.0 [facility] Comment on above: Performed By: #### L 500.2500, L100.0100, L700.8000 #### [facility] [address] [place], [address] Platelets (Bld) [#/Vol] 315 10*3/uL Normal 150-450 [facility] Comment on above: Performed By: #### L 500.2500, L100.0100, L700.8000 #### [facility] [address] [place], [address] RBC (Bld) [#/Vol] 4.05 10*6/uL Low 4.2-5.4 [facility] Comment on above: Performed By: #### L 500.2500, L100.0100, L700.8000 #### [facility] [address] [place], [address] RDW SD 38.6 fl Normal 35.1-43.9 [facility] Comment on above: Performed By: #### L 500.2500, L100.0100, L700.8000 #### [facility] [address] [place], [address] WBC (Bld) [#/Vol] 14.1 10*3/uL High 4.4-11.0 [facility] Comment on above: Performed By: #### L 500.2500, L100.0100, L700.8000 #### [facility] [address] [place], [address] Comprehensive Metabolic Prof ilon 05-13-2025 Albumin [Mass/Vol] 4.7 g/dL Normal 3.5-5.0 [facility] Comment on above: Performed By: #### L 500.2500, L100.0100, L700.8000 #### [facility] [address] [place], [address] Albumin/Globulin [Mass ratio] 1.8 {ratio} Normal 0.9-2.4 [facility] Comment on above: Performed By: #### L 500.2500, L100.0100, L700.8000 #### [facility] [address] [place], [address] ALK PHOS 80 U/L Normal 35-104 [facility] Comment on above: Performed By: #### L 500.2500, L100.0100, L700.8000 #### [facility] [address] [place], [address] ALT [Catalytic activity/Vol] 12 U/L Normal <=34 [facility] Comment on above: Performed By: #### L 500.2500, L100.0100, L700.8000 #### [facility] [address] [place], [address] AST [Catalytic activity/Vol] 19 U/L Normal <=31 [facility] Comment on above: Performed By: #### L 500.2500, L100.0100, L700.8000 #### [facility] [address] [place], [address] Bilirubin [Mass/Vol] 0.71 mg/dL Normal 0.00-1.30 [facility] Comment on above: Performed By: #### L 500.2500, L100.0100, L700.8000 #### [facility] [address] [place], [address] BUN/CRE 14.3 RATIO Normal 10-20 [facility] Comment on above: Performed By: #### L 500.2500, L100.0100, L700.8000 #### [facility] [address] [place], [address] Calcium [Mass/Vol] 9.4 mg/dL Normal 7.6-11.0 [facility] Comment on above: Performed By: #### L 500.2500, L100.0100, L700.8000 #### [facility] [address] [place], [address] Chloride [Moles/Vol] 106 mmol/L Normal 98-108 [facility] Comment on above: Performed By: #### L 500.2500, L100.0100, L700.8000 #### [facility] [address] [place], [address] CO2 [Moles/Vol] 18.0 mmol/L Low 21.0-32.0 [facility] Comment on above: Performed By: #### L 500.2500, L100.0100, L700.8000 #### [facility] [address] [place], [address] Creatinine [Mass/Vol] 0.63 mg/dL Low 0.70-1.20 [facility] Comment on above: Performed By: #### L 500.2500, L100.0100, L700.8000 #### [facility] [address] [place], [address] ECRCL 108.97 ml/min Normal 50-250 [facility] Comment on above: Performed By: #### L 500.2500, L100.0100, L700.8000 #### [facility] [address] [place], [address] GAP 15 Normal 5-15 [facility] Comment on above: Performed By: #### L 500.2500, L100.0100, L700.8000 #### [facility] [address] [place], [address] GFR/1.73 sq M.predicted among non-blacks MDRD (S/P/Bld) [Vol rate/Area] 128 mL/min/{1.73_m2} Normal >60 [facility] Comment on above: Result Comment: mL/m in/1.73m2 CKD-EPI Creatinine Equation (2020) Performed By: #### L 500.2500, L100.0100, L700.8000 #### [facility] [address] [place], [address] Globulin (S) [Mass/Vol] 2.6 g/dL Normal 2.2-4.2 [facility] Comment on above: Performed By: #### L 500.2500, L100.0100, L700.8000 #### [facility] [address] [place], [address] Glucose [Mass/Vol] 117 mg/dL High 70-99 [facility] Comment on above: Performed By: #### L 500.2500, L100.0100, L700.8000 #### [facility] [address] [place], [address] Potassium [Moles/Vol] 3.5 mmol/L Normal 3.3-5.1 [facility] Comment on above: Performed By: #### L 500.2500, L100.0100, L700.8000 #### [facility] [address] [place], [address] Sodium [Moles/Vol] 139 mmol/L Normal 133-145 [facility] Comment on above: Performed By: #### L 500.2500, L100.0100, L700.8000 #### [facility] [address] [place], [address] T PROT 7.3 g/dL Normal 5.9-8.4 [facility] Comment on above: Performed By: #### L 500.2500, L100.0100, L700.8000 #### [facility] [address] [place], [address] Urea nitrogen [Mass/Vol] 9 mg/dL Normal 4-19 [facility] Comment on above: Performed By: #### L 500.2500, L100.0100, L700.8000 #### [facility] [address] [place], [address] Emergency Department Summary on 05-13-2025 Emergency Department Summary [facility] Medical Records Department [address] [place] [address] Emergency Department Summary 05/13/25 MR#: [id number] Acct: [id number] Name: GLORIA NETTLES TOBIAS Rep #: [id number] : 2000 24 From: Fay De Los [...] trimester. Has an appointment to see her REPRODUCTIVE SURGEON and confirm next week through [facility]. Notes that she is going to multiple stressors including relationships with the father, home life issues and she just told her mother about the today. No fever or chills reported but has had some sweating. No blood in vomit or stool appreciated. No other complaints or concerns at this time [facility] Medical History Marijuana use Panic disorder Major [...] 0 current occupational status: employed current occupation: [employer] current occupational exposures/hazards: No pets and animals: [...] times per week duration: < 15 minutes/day dustin/baptist: None seatbelt use: always do you feel safe at home: Yes additional social history: BF: Dav - Foot And Ankle Surgeon @ [employer] ROS ROS ED Constitutional Constitutional ED: Denies [...] (more content not included)... Normal [facility] Lipaseon 05-13-2025 Lipase [Catalytic activity/Vol] 23 U/L Normal 13-75 [facility] Comment on above: Result Comment: Rashaun rodriguez note: LIPASE revised reference range effective 22. New Lipase methodology. Expected to produce lower values than the previous assay method. NEW Reference Range: 13 - 75 U/L Performed By: #### L 500.2500, L100.0100, L700.8000 #### [facility] [address] [place], [address] Urinalysis, Completeon 05-13 EPI,SQUAMOUS 0-5 SEEN Normal 5-10 [facility] Comment on above: Order Comment: CLEAN CATCH Performed By: #### L 500.2500, L100.0100, L700.8000 #### [facility] [address] [place], [address] BACTERIA 1+ /hpf Normal None Seen [facility] Comment on above: Order Comment: CLEAN CATCH Performed By: #### L 500.2500, L100.0100, L700.8000 #### [facility] [address] [place], [address] Mucus Ql (Urine sed) 1+ /hpf Normal [facility] Comment on above: Order Comment: CLEAN CATCH Performed By: #### L 500.2500, L100.0100, L700.8000 #### [facility] [address] [place], [address] RBC 0 SEEN Normal 0-5 [facility] Comment on above: Order Comment: CLEAN CATCH Performed By: #### L 500.2500, L100.0100, L700.8000 #### [facility] [address] [place], [address] WBC 0 SEEN Normal 0-5 [facility] Comment on above: Order Comment: CLEAN CATCH Performed By: #### L 500.2500, L100.0100, L700.8000 #### [facility] [address] [place], [address] Basic Metabolic Profile (BMP )on 05-12-2025 BUN/CRE 16.0 RATIO Normal 10-20 [facility] Comment on above: Performed By: #### L 500.2500, L100.0100, L700.8000 #### [facility] [address] [place], [address] Calcium [Mass/Vol] 8.8 mg/dL Normal 7.6-11.0 [facility] Comment on above: Performed By: #### L 500.2500, L100.0100, L700.8000 #### [facility] [address] [place], [address] Chloride [Moles/Vol] 106 mmol/L Normal 98-108 [facility] Comment on above: Performed By: #### L 500.2500, L100.0100, L700.8000 #### [facility] [address] [place], [address] CO2 [Moles/Vol] 19.8 mmol/L Low 21.0-32.0 [facility] Comment on above: Performed By: #### L 500.2500, L100.0100, L700.8000 #### [facility] [address] [place], [address] Creatinine [Mass/Vol] 0.59 mg/dL Low 0.70-1.20 [facility] Comment on above: Performed By: #### L 500.2500, L100.0100, L700.8000 #### [facility] [address] [place], [address] ECRCL 117.29 ml/min Normal 50-250 [facility] Comment on above: Performed By: #### L 500.2500, L100.0100, L700.8000 #### [facility] [address] [place], [address] GAP 12 Normal 5-15 [facility] Comment on above: Performed By: #### L 500.2500, L100.0100, L700.8000 #### [facility] [address] [place], [address] GFR/1.73 sq M.predicted among non-blacks MDRD (S/P/Bld) [Vol rate/Area] 130 mL/min/{1.73_m2} Normal >60 [facility] Comment on above: Result Comment: mL/m in/1.73m2 CKD-EPI Creatinine Equation (2020) Performed By: #### L 500.2500, L100.0100, L700.8000 #### [facility] [address] [place], [address] Glucose [Mass/Vol] 92 mg/dL Normal 70-99 [facility] Comment on above: Performed By: #### L 500.2500, L100.0100, L700.8000 #### [facility] [address] [place], [address] Potassium [Moles/Vol] 3.3 mmol/L Normal 3.3-5.1 [facility] Comment on above: Performed By: #### L 500.2500, L100.0100, L700.8000 #### [facility] [address] [place], [address] Sodium [Moles/Vol] 138 mmol/L Normal 133-145 [facility] Comment on above: Performed By: #### L 500.2500, L100.0100, L700.8000 #### [facility] [address] [place], [address] Urea nitrogen [Mass/Vol] 10 mg/dL Normal 4-19 [facility] Comment on above: Performed By: #### L 500.2500, L100.0100, L700.8000 #### [facility] [address] [place], [address] CBC W/Diff, Automatedon 09-2 Absolute Lymph 1.38 X10 3/uL Normal 0.83-4.51 [facility] Comment on above: Performed By: #### L 500.2500, L100.0100, L700.8000 #### [facility] [address] [place], [address] Absolute Neut 7.5 X10 3/uL Normal 2.0-7.7 [facility] Comment on above: Performed By: #### L 500.2500, L100.0100, L700.8000 #### [facility] [address] [place], [address] Basophils/100 WBC (Bld) 0.3 % Normal 0-1 [facility] Comment on above: Performed By: #### L 500.2500, L100.0100, L700.8000 #### [facility] [address] [place], [address] Eosinophils/100 WBC (Bld) 0.8 % Normal 0-5 [facility] Comment on above: Performed By: #### L 500.2500, L100.0100, L700.8000 #### [facility] [address] [place], [address] Erythrocyte distribution width (RBC) [Ratio] 12.1 % Normal 11.6-14.6 [facility] Comment on above: Performed By: #### L 500.2500, L100.0100, L700.8000 #### [facility] [address] [place], [address] Hematocrit (Bld) [Volume fraction] 35.2 % Low 37-47 [facility] Comment on above: Performed By: #### L 500.2500, L100.0100, L700.8000 #### [facility] [address] [place], [address] Hemoglobin (Bld) [Mass/Vol] 12.8 g/dL Normal 12.0-15.0 [facility] Comment on above: Performed By: #### L 500.2500, L100.0100, L700.8000 #### [facility] [address] [place], [address] IG% 0.300 Normal 0.0-0.9 [facility] Comment on above: Result Comment: IG% - Immature Granulocytes (promyelocytes, myelocytes and metamyelocytes) > 1% indicates that a LEFT SHIFT is Present. Performed By: #### L 500.2500, L100.0100, L700.8000 #### [facility] [address] [place], [address] Lymphocytes/100 WBC (Bld) 14.5 % Low 19-41 [facility] Comment on above: Performed By: #### L 500.2500, L100.0100, L700.8000 #### [facility] [address] [place], [address] MCH (RBC) [Entitic mass] 32.1 pg High 27.0-32.0 [facility] Comment on above: Performed By: #### L 500.2500, L100.0100, L700.8000 #### [facility] [address] [place], [address] MCHC (RBC) [Mass/Vol] 36.4 g/dL High 32-36 [facility] Comment on above: Performed By: #### L 500.2500, L100.0100, L700.8000 #### [facility] [address] [place], [address] MCV (RBC) [Entitic vol] 88.2 fL Normal 81-99 [facility] Comment on above: Performed By: #### L 500.2500, L100.0100, L700.8000 #### [facility] [address] [place], [address] Monocytes/100 WBC (Bld) 5.4 % Normal 0-10 [facility] Comment on above: Performed By: #### L 500.2500, L100.0100, L700.8000 #### [facility] [address] [place], [address] Neutrophils/100 WBC (Bld) 78.7 % High 47-70 [facility] Comment on above: Performed By: #### L 500.2500, L100.0100, L700.8000 #### [facility] [address] [place], [address] Nucleated RBC (Bld) [#/Vol] 0 10*3/uL Normal 0-5 [facility] Comment on above: Performed By: #### L 500.2500, L100.0100, L700.8000 #### [facility] [address] [place], [address] Platelet mean volume (Bld) [Entitic vol] 9.6 fL Normal 6.2-12.0 [facility] Comment on above: Performed By: #### L 500.2500, L100.0100, L700.8000 #### [facility] [address] [place], [address] Platelets (Bld) [#/Vol] 268 10*3/uL Normal 150-450 [facility] Comment on above: Performed By: #### L 500.2500, L100.0100, L700.8000 #### [facility] [address] [place], [address] RBC (Bld) [#/Vol] 3.99 10*6/uL Low 4.2-5.4 [facility] Comment on above: Performed By: #### L 500.2500, L100.0100, L700.8000 #### [facility] [address] [place], [address] RDW SD 39.4 fl Normal 35.1-43.9 [facility] Comment on above: Performed By: #### L 500.2500, L100.0100, L700.8000 #### [facility] [address] [place], [address] WBC (Bld) [#/Vol] 9.6 10*3/uL Normal 4.4-11.0 [facility] Comment on above: Performed By: #### L 500.2500, L100.0100, L700.8000 #### [facility] [address] [place], [address] Emergency Department Summary on 05-12-2025 Emergency Department Summary [facility] Medical Records Department [address] [place] [address] Emergency Department Summary 05/12/25 MR#: [id number] Acct: [id number] Name: GLORIA NETTLES TOBIAS Rep #: [id number] : 2000 24 From: Zafar Marrero DO PCP: Dr. Wilfred Egan DO Status:DEP [...] Patient denies any suicidal or homicidal ideations. 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 Normal [facility] Urinalysis, Completeon 05-12 BACTERIA 2+ /hpf Normal None Seen [facility] Comment on above: Order Comment: CLEAN CATCH Performed By: #### L 500.2500, L100.0100, L700.8000 #### [facility] [address] [place], [address] EPI,SQUAMOUS 0-5 SEEN Normal 5-10 [facility] Comment on above: Order Comment: CLEAN CATCH Performed By: #### L 500.2500, L100.0100, L700.8000 #### [facility] [address] [place], [address] Mucus Ql (Urine sed) 0 SEEN Normal [facility] Comment on above: Order Comment: CLEAN CATCH Performed By: #### L 500.2500, L100.0100, L700.8000 #### [facility] [address] [place], [address] RBC 0 SEEN Normal 0-5 [facility] Comment on above: Order Comment: CLEAN CATCH Performed By: #### L 500.2500, L100.0100, L700.8000 #### [facility] [address] [place], [address] WBC 0 SEEN Normal 0-5 [facility] Comment on above: Order Comment: CLEAN CATCH Performed By: #### L 500.2500, L100.0100, L700.8000 #### [facility] [address] [place], [address] hCG Titer Quant., Serumon HCG QUANT. 67985 mIU/mL High <9 non-preg [facility] Comment on above: Result Comment: Gest ational Age 0.2-1 Week: 5-50 mIU/mL 1-2 Weeks: 50-500 mIU/mL 2-3 Weeks: 100-5000 mIU/mL 3-4 Weeks: 500-10,000 mIU/mL 4-5 Weeks:1000-50,000 mIU/mL 5-6 Weeks: 10,000-100,000 mIU/mL 6-8 Weeks: 15,000-200,000 mIU/mL 2-3 Months:10,000-100,000 mIU/mL Performed By: #### L 500.2500, L100.0100, L700.8000 #### [facility] [address] [place], [address] Office Visit Reporton [address] [facility] [address] [place] [address] OFFICE VISIT Date of Service: 05/04/25 MR#: [id number] Acct: [id number] Patient: GLORIA NETTLES TOBIAS Rep #: [id number] : 2000 Provider: MARYLIN Crum ams Age/Sex: 24/F Location: [facility] [place] Status: Signed reviewed Intake Vital Signs 10/20/24 [...] Date (if applicable) CC: Normal [facility] BACTERIAL VAGINOSIS NAATon 0 02-02-2025 Lactobacillus crispatus+gasseri +jensenii + Gardnerella vaginalis + Atopobium vaginae rRNA OLIVIA+probe Ql (Vag fld) Detected Abnormal Not detected [facility] Comment on above: Order Comment: Speci men Type: SWAB Ordering Facility: [facility] Address: [address] [place] [address] Performed By: #### 3 6902-5, BVAMP #### [facility] CLIA [id number] [address] [place] [address] [place] Bacteria Ur Culton [...] llection technique or straight catheterization for???urine???collection. Normal [facility] Comment on above: Performed By: #### 6 30-4 #### [facility] CLIA [id number] [address] [place] [address] [place] C. trachomatis+N. gonorrhoea e DNA OLIVIA+probe Ql (Unsp spec)on 02-02-2025 C. trachomatis rRNA OLIVIA+probe Ql (Unsp spec) Not detected Normal Not detected [facility] Comment on above: Order Comment: Speci men Type: SWAB Ordering Facility: [facility] Address: [address] [place] [address] Performed By: #### 3 6902-5, BVAMP #### [facility] CLIA [id number] [address] [place] [address] [place] N. gonorrhoeae rRNA OLIVIA+probe Ql (Unsp spec) Not detected Normal Not detected [facility] Comment on above: Order Comment: Speci men Type: SWAB Ordering Facility: [facility] Address: [address] [place] [address] Performed By: #### 3 6902-5, BVAMP #### [facility] CLIA [id number] [address] [place] [address] STATES [place] [facility] ADELITA/TRICHOMONAS NAATon 0 02-02-2025 C. glabrata RNA OLIVIA+probe Ql (Vag fld) Not detected Normal Not detected [facility] Comment on above: Order Comment: Speci men Type: SWAB Ordering Facility: [facility] Address: [address] [place] [address] Performed By: #### C VTV #### [facility] CLIA [id number] [address] [place] [address] [place] Adelita sp DNA OLIVIA+probe Ql (Vag fld) Detected Abnormal Not detected [facility] Comment on above: Order Comment: Speci men Type: SWAB Ordering Facility: [facility] Address: [address] [place] [address] Result Comment: The Adelita species group target includes C. albicans, C. tropicalis, C. parapsilosis, and C. dubliniensis. Performed By: #### C VTV #### [facility] CLIA [id number] [address] [place] [address] [place] T. vaginalis DNA OLIVIA+probe Ql (Unsp spec) Not detected Normal Not detected [facility] Comment on above: Order Comment: Speci men Type: SWAB Ordering Facility: [facility] Address: [address] [place] [address] Performed By: #### C VTV #### [facility] CLIA [id number] [address] [place] [address] OF [facility] CNOVon 02-02-2025 CNOV Office Visit (UCWSTR ) GLORIA NETTLES ([id number]) 2 F Date Time Provider Department 02/02/25 8:45 AM NATALI ZEPEDA [facility] During your visit today, we recorded the following information about you: Temperature Pulse Respiration Blood pressure 97.1 degrees 78/minute 16/minute 108/62 Weight 52.7 kg Natali Zepeda APRN.CHISEL GRINDER 02/02/2025 9:20 AM Signed [facility] [...] plan 11/24/2020 placed on care plan by [facility] ED for excessive visits PAST SURGICAL HISTORY [...] deficit. Motor: (more content not included)... Normal [facility] UA DIP, URINE (POC)on 2024 BILIRUBIN UA (POCT) Negative Negative [facility] [place] CLARITY UA (POCT) Clear [facility] COLOR UA (POCT) Yellow [facility] GLUCOSE UA (POCT) Negative Negative mg/dL [facility] Hemoglobin Ql (U) Trace-lysed Abnormal Negative [facility] Interpretation and review of laboratory results Abnormal [facility] KETONE UA (POCT) Negative Negative mg/dL [facility] [place] LEUKOCYTES UA (POCT) Negative Negative [facility] [place] NITRITE UA (POCT) Negative Negative [facility] PH UA (POCT) 5.5 4.5 - 8.0 [facility] [place] Protein Ql (U) Negative Negative mg/dL [facility] [place] SPECIFIC GRAVITY UA (POCT) 1.025 1.005 - 1.030 [facility] UROBILINOGEN UA (POCT) 0.2 Normal E.U./dL [facility] Location:[facility] [place], [address] [facility], [place], [address] [facility] POINT OF CARE [facility] [place] Urine Cultureon 10-22-2024 URC #1, 2 Below infectio n level. 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 Submit a new specimen if indicated. Normal [facility] Comment on above: Performed By: #### L 500.2500, L100.0100, L700.8000 #### [facility] [address] [place], [address] CBC W/Diff, Automatedon Absolute Lymph 0.48 X10 3/uL Low 0.83-4.51 [facility] Comment on above: Performed By: #### L 100.0100, L500.4050, L501.2450 #### [facility] [address] [place], [address] Absolute Neut 10.7 X10 3/uL High 2.0-7.7 [facility] Comment on above: Performed By: #### L 100.0100, L500.4050, L501.2450 #### [facility] [address] [place], [address] Basophils/100 WBC (Bld) 0.2 % Normal 0-1 [facility] Comment on above: Performed By: #### L 100.0100, L500.4050, L501.2450 #### [facility] [address] [place], [address] Eosinophils/100 WBC (Bld) 0.0 % Normal 0-5 [facility] Comment on above: Performed By: #### L 100.0100, L500.4050, L501.2450 #### [facility] [address] [place], [address] Erythrocyte distribution width (RBC) [Ratio] 12.5 % Normal 11.6-14.6 [facility] Comment on above: Performed By: #### L 100.0100, L500.4050, L501.2450 #### [facility] [address] [place], [address] Hematocrit (Bld) [Volume fraction] 38.3 % Normal 37-47 [facility] Comment on above: Performed By: #### L 100.0100, L500.4050, L501.2450 #### [facility] [address] [place], [address] Hemoglobin (Bld) [Mass/Vol] 13.6 g/dL Normal 12.0-15.0 [facility] Comment on above: Performed By: #### L 100.0100, L500.4050, L501.2450 #### [facility] [address] [place], [address] IG% 0.300 Normal 0.0-0.9 [facility] Comment on above: Result Comment: IG% - Immature Granulocytes (promyelocytes, myelocytes and metamyelocytes) > 1% indicates that a LEFT SHIFT is Present. Performed By: #### L 100.0100, L500.4050, L501.2450 #### [facility] [address] [place], [address] Lymphocytes/100 WBC (Bld) 4.2 % Low 19-41 [facility] Comment on above: Performed By: #### L 100.0100, L500.4050, L501.2450 #### [facility] [address] [place], [address] MCH (RBC) [Entitic mass] 31.6 pg Normal 27.0-32.0 [facility] Comment on above: Performed By: #### L 100.0100, L500.4050, L501.2450 #### [facility] [address] [place], [address] MCHC (RBC) [Mass/Vol] 35.5 g/dL Normal 32-36 [facility] Comment on above: Performed By: #### L 100.0100, L500.4050, L501.2450 #### [facility] [address] [place], [address] MCV (RBC) [Entitic vol] 88.9 fL Normal 81-99 [facility] Comment on above: Performed By: #### L 100.0100, L500.4050, L501.2450 #### [facility] [address] [place], [address] Monocytes/100 WBC (Bld) 2.2 % Normal 0-10 [facility] Comment on above: Performed By: #### L 100.0100, L500.4050, L501.2450 #### [facility] [address] [place], [address] Neutrophils/100 WBC (Bld) 93.1 % High 47-70 [facility] Comment on above: Performed By: #### L 100.0100, L500.4050, L501.2450 #### [facility] [address] [place], [address] Nucleated RBC (Bld) [#/Vol] 0 10*3/uL Normal 0-5 [facility] Comment on above: Performed By: #### L 100.0100, L500.4050, L501.2450 #### [facility] [address] [place], [address] Platelet mean volume (Bld) [Entitic vol] 11.3 fL Normal 6.2-12.0 [facility] Comment on above: Performed By: #### L 100.0100, L500.4050, L501.2450 #### [facility] [address] [place], [address] Platelets (Bld) [#/Vol] 242 10*3/uL Normal 150-450 [facility] Comment on above: Performed By: #### L 100.0100, L500.4050, L501.2450 #### [facility] [address] [place], [address] RBC (Bld) [#/Vol] 4.31 10*6/uL Normal 4.2-5.4 [facility] Comment on above: Performed By: #### L 100.0100, L500.4050, L501.2450 #### [facility] [address] [place], [address] RDW SD 41.1 fl Normal 35.1-43.9 [facility] Comment on above: Performed By: #### L 100.0100, L500.4050, L501.2450 #### [facility] [address] [place], [address] WBC (Bld) [#/Vol] 11.5 10*3/uL High 4.4-11.0 [facility] Comment on above: Performed By: #### L 100.0100, L500.4050, L501.2450 #### [facility] [address] [place], [address] Comprehensive Metabolic Prof ilon 10-20-2024 Albumin [Mass/Vol] 4.4 g/dL Normal 3.5-5.0 [facility] Comment on above: Performed By: #### L 100.0100, L500.4050, L501.2450 #### [facility] [address] [place], [address] Albumin/Globulin [Mass ratio] 1.6 {ratio} Normal 0.9-2.4 [facility] Comment on above: Performed By: #### L 100.0100, L500.4050, L501.2450 #### [facility] [address] [place], [address] ALK PHOS 93 U/L Normal 35-104 [facility] Comment on above: Performed By: #### L 100.0100, L500.4050, L501.2450 #### [facility] [address] [place], [address] ALT [Catalytic activity/Vol] 8 U/L Normal <=34 [facility] Comment on above: Performed By: #### L 100.0100, L500.4050, L501.2450 #### [facility] [address] [place], [address] AST [Catalytic activity/Vol] 21 U/L Normal <=31 [facility] Comment on above: Result Comment: Hemo lysis present, Results??could be affected. ?? Performed By: #### L 100.0100, L500.4050, L501.2450 #### [facility] [address] [place], [address] Bilirubin [Mass/Vol] 1.42 mg/dL High 0.00-1.30 [facility] Comment on above: Performed By: #### L 100.0100, L500.4050, L501.2450 #### [facility] [address] [place], [address] BUN/CRE 20.6 RATIO High 10-20 [facility] Comment on above: Performed By: #### L 100.0100, L500.4050, L501.2450 #### [facility] [address] [place], [address] Calcium [Mass/Vol] 9.2 mg/dL Normal 7.6-11.0 [facility] Comment on above: Performed By: #### L 100.0100, L500.4050, L501.2450 #### [facility] [address] [place], [address] Chloride [Moles/Vol] 101 mmol/L Normal 98-108 [facility] Comment on above: Performed By: #### L 100.0100, L500.4050, L501.2450 #### [facility] [address] [place], [address] CO2 [Moles/Vol] 19.2 mmol/L Low 21.0-32.0 [facility] Comment on above: Performed By: #### L 100.0100, L500.4050, L501.2450 #### [facility] [address] [place], [address] Creatinine [Mass/Vol] 0.71 mg/dL Normal 0.70-1.20 [facility] Comment on above: Performed By: #### L 100.0100, L500.4050, L501.2450 #### [facility] [address] [place], [address] ECRCL 95.91 ml/min Normal 50-250 [facility] Comment on above: Performed By: #### L 100.0100, L500.4050, L501.2450 #### [facility] [address] [place], [address] GAP 16 High 5-15 [facility] Comment on above: Performed By: #### L 100.0100, L500.4050, L501.2450 #### [facility] [address] [place], [address] GFR/1.73 sq M.predicted among non-blacks MDRD (S/P/Bld) [Vol rate/Area] 122 mL/min/{1.73_m2} Normal >60 [facility] Comment on above: Result Comment: mL/m in/1.73m2 CKD-EPI Creatinine Equation (2020) Performed By: #### L 100.0100, L500.4050, L501.2450 #### [facility] [address] [place], [address] Globulin (S) [Mass/Vol] 2.8 g/dL Normal 2.2-4.2 [facility] Comment on above: Performed By: #### L 100.0100, L500.4050, L501.2450 #### [facility] [address] [place], [address] Glucose [Mass/Vol] 101 mg/dL High 70-99 [facility] Comment on above: Performed By: #### L 100.0100, L500.4050, L501.2450 #### [facility] [address] [place], [address] Potassium [Moles/Vol] 3.5 mmol/L Normal 3.3-5.1 [facility] Comment on above: Result Comment: Hemo lysis present, Results??could be affected. ?? Performed By: #### L 100.0100, L500.4050, L501.2450 #### [facility] [address] [place], [address] Sodium [Moles/Vol] 136 mmol/L Normal 133-145 [facility] Comment on above: Performed By: #### L 100.0100, L500.4050, L501.2450 #### [facility] [address] [place], [address] T PROT 7.2 g/dL Normal 5.9-8.4 [facility] Comment on above: Performed By: #### L 100.0100, L500.4050, L501.2450 #### [facility] [address] [place], [address] Urea nitrogen [Mass/Vol] 15 mg/dL Normal 4-19 [facility] Comment on above: Performed By: #### L 100.0100, L500.4050, L501.2450 #### [facility] [address] [place], [address] Emergency Department Summary on 10-20-2024 Emergency Department Summary [facility] Medical Records Department [address] [place] [address] Emergency Department Summary 10/20/24 MR#: [id number] Acct: [id number] Name: GLORIA NETTLES TOBIAS Rep #: [id number] : 2000 24 From: Fay De Los [...] blood in her stool or her vomit. [facility] Medical History Wears glasses History of steroid [...] (more content not included)... Normal [facility] Lipaseon 10-20-2024 Lipase [Catalytic activity/Vol] 21 U/L Normal 13-75 [facility] Comment on above: Result Comment: Rashaun rodriguez note: LIPASE revised reference range effective 22. New Lipase methodology. Expected to produce lower values than the previous assay method. NEW Reference Range: 13 - 75 U/L Performed By: #### L 100.0100, L500.4050, L501.2450 #### [facility] [address] [place], [address] M100.678on 10-20-2024 M100.678 SARS-CoV-2 (COVID 19 ) Negative INFLUENZA A Negative INFLUENZA B Negative RSV PCR Negative Normal [facility] Comment on above: Performed By: #### M 100.678, L400.0001, L400.7600 #### [facility] [address] [place], [address] ,Urineon 10-20-2024 Beta HCG ( test) Ql (U) Negative Normal [facility] Comment on above: Result Comment: Very dilute urine specimens, as indicated by a low specific gravity, may not contain branch sales and service representative levels of hCG. If is still suspected, a first morning urine specimen should be collected 48 hours later and tested. Performed By: #### M 100.678, L400.0001, L400.7600 #### [facility] [address] [place], [address] Urinalysis, Completeon 10-20 KETONE UR 150 mg/dl Abnormal Negative [facility] Comment on above: Order Comment: CLEAN CATCH Result Comment: CRIT ICAL VALUE *H CRITICAL VALUE CALLED TO SHEN 10/20/24 034Christiano Otoniel Shabnam. RESULTS READ BACK BY SAME. Performed By: #### M 100.678, L400.0001, L400.7600 #### [facility] [address] [place], [address] BACTERIA 3+ /hpf Normal None Seen [facility] Comment on above: Order Comment: CLEAN CATCH Performed By: #### M 100.678, L400.0001, L400.7600 #### [facility] [address] [place], [address] EPI,SQUAMOUS 10-25 SEEN Normal 5-10 [facility] Comment on above: Order Comment: CLEAN CATCH Performed By: #### M 100.678, L400.0001, L400.7600 #### [facility] [address] [place], [address] Mucus Ql (Urine sed) 3+ /hpf Normal [facility] Comment on above: Order Comment: CLEAN CATCH Performed By: #### M 100.678, L400.0001, L400.7600 #### [facility] [address] [place], [address] RBC 0 SEEN Normal 0-5 [facility] Comment on above: Order Comment: CLEAN CATCH Performed By: #### M 100.678, L400.0001, L400.7600 #### [facility] [address] [place], [address] WBC 50-100 SEEN Normal 0-5 [facility] Comment on above: Order Comment: CLEAN CATCH Performed By: #### M 100.678, L400.0001, L400.7600 #### [facility] [address] [place], [address] BILIRUBIN URINE 1 mg/dL Abnormal Negative [facility] Comment on above: Order Comment: CLEAN CATCH Result Comment: COLO R OF URINE MAY AFFECT DIPSTICK RESULTS. Performed By: #### M 100.678, L400.0001, L400.7600 #### [facility] [address] [place], [address] Clarity (U) Sl. Cloudy Normal Clear [facility] Comment on above: Order Comment: CLEAN CATCH Performed By: #### M 100.678, L400.0001, L400.7600 #### [facility] [address] [place], [address] Color (U) Yellow Normal Yellow [facility] Comment on above: Order Comment: CLEAN CATCH Performed By: #### M 100.678, L400.0001, L400.7600 #### [facility] [address] [place], [address] GLUCOSE, UR Normal Normal Normal [facility] Comment on above: Order Comment: CLEAN CATCH Performed By: #### M 100.678, L400.0001, L400.7600 #### [facility] [address] [place], [address] LEUK ESTERASE 500 /ul Abnormal Negative [facility] Comment on above: Order Comment: CLEAN CATCH Performed By: #### M 100.678, L400.0001, L400.7600 #### [facility] [address] [place], [address] Nitrite Ql (U) Negative Normal Negative [facility] Comment on above: Order Comment: CLEAN CATCH Performed By: #### M 100.678, L400.0001, L400.7600 #### [facility] [address] [place], [address] OCCULT BLOOD-UR Negative Normal Negative [facility] Comment on above: Order Comment: CLEAN CATCH Performed By: #### M 100.678, L400.0001, L400.7600 #### [facility] [address] [place], [address] pH UR 6.0 Normal 5.0 - 8.0 [facility] Comment on above: Order Comment: CLEAN CATCH Performed By: #### M 100.678, L400.0001, L400.7600 #### [facility] [address] [place], [address] PROT DIPSTX 30 mg/dl Abnormal Negative [facility] Comment on above: Order Comment: CLEAN CATCH Performed By: #### M 100.678, L400.0001, L400.7600 #### [facility] [address] [place], [address] SP.GR. DIPSTX 1.025 Normal 1.002-1.030 [facility] Comment on above: Order Comment: CLEAN CATCH Performed By: #### M 100.678, L400.0001, L400.7600 #### [facility] [address] [place], [address] UROBILI 1 mg/dl Abnormal Normal [facility] Comment on above: Order Comment: CLEAN CATCH Performed By: #### M 100.678, L400.0001, L400.7600 #### [facility] [address] [place], [address] Basic Metabolic Profile (BMP )on 06-25-2024 BUN/CRE 12.8 RATIO Normal 10-20 [facility] Comment on above: Performed By: #### L 500.2500, L100.0100, L700.8000 #### [facility] [address] [place], [address] CA,Total 8.9 mg/dL Normal 8.5-10.1 [facility] Comment on above: Performed By: #### L 500.2500, L100.0100, L700.8000 #### [facility] [address] [place], [address] Chloride [Moles/Vol] 112 mmol/L High 98-107 [facility] Comment on above: Performed By: #### L 500.2500, L100.0100, L700.8000 #### [facility] [address] [place], [address] CO2 [Moles/Vol] 23.0 mmol/L Normal 21.0-32.0 [facility] Comment on above: Performed By: #### L 500.2500, L100.0100, L700.8000 #### [facility] [address] [place], [address] Creatinine [Mass/Vol] 0.78 mg/dL Normal 0.55-1.02 [facility] Comment on above: Result Comment: The validity of the calculated GFR GFRAA in patients over 70 years has not been determined. Clinical correlation is essential. Performed By: #### L 500.2500, L100.0100, L700.8000 #### [facility] [address] [place], [address] ECRCL 93.58 ml/min Normal [facility] Comment on above: Performed By: #### L 500.2500, L100.0100, L700.8000 #### [facility] [address] [place], [address] EST GFR - AA 117 mL/min Normal >60 [facility] Comment on above: Result Comment: Afri can Martiniquais GFR Calc Performed By: #### L 500.2500, L100.0100, L700.8000 #### [facility] [address] [place], [address] GAP 4 Low 5-15 [facility] Comment on above: Performed By: #### L 500.2500, L100.0100, L700.8000 #### [facility] [address] [place], [address] GFR/1.73 sq M.predicted among non-blacks MDRD (S/P/Bld) [Vol rate/Area] 97 mL/min/{1.73_m2} Normal >60 [facility] Comment on above: Result Comment: Non- GFR Calc Performed By: #### L 500.2500, L100.0100, L700.8000 #### [facility] [address] [place], [address] Glucose [Mass/Vol] 120 mg/dL High 74-106 [facility] Comment on above: Result Comment: Fast ing Glucose result from 100 to 125 mg/dL suggests IMPAIRED HOMEOSTASIS per A.D.A. criteria. Performed By: #### L 500.2500, L100.0100, L700.8000 #### [facility] [address] [place], [address] Potassium [Moles/Vol] 3.5 mmol/L Normal 3.5-5.1 [facility] Comment on above: Performed By: #### L 500.2500, L100.0100, L700.8000 #### [facility] [address] [place], [address] Sodium [Moles/Vol] 138 mmol/L Normal 136-145 [facility] Comment on above: Performed By: #### L 500.2500, L100.0100, L700.8000 #### [facility] [address] [place], [address] Urea nitrogen [Mass/Vol] 10 mg/dL Normal 7-18 [facility] Comment on above: Performed By: #### L 500.2500, L100.0100, L700.8000 #### [facility] [address] [place], [address] CBC W/Diff, Automatedon 11-0 -2023 Absolute Lymph 1.02 X10 3/uL Normal 0.83-4.51 [facility] Comment on above: Performed By: #### L 500.2500, L100.0100, L700.8000 #### [facility] [address] [place], [address] Absolute Neut 10.7 X10 3/uL High 2.0-7.7 [facility] Comment on above: Performed By: #### L 500.2500, L100.0100, L700.8000 #### [facility] [address] [place], [address] Basophils/100 WBC (Bld) 0.5 % Normal 0-1 [facility] Comment on above: Performed By: #### L 500.2500, L100.0100, L700.8000 #### [facility] [address] [place], [address] Eosinophils/100 WBC (Bld) 0.6 % Normal 0-5 [facility] Comment on above: Performed By: #### L 500.2500, L100.0100, L700.8000 #### [facility] [address] [place], [address] Erythrocyte distribution width (RBC) [Ratio] 13.1 % Normal 11.6-14.6 [facility] Comment on above: Performed By: #### L 500.2500, L100.0100, L700.8000 #### [facility] [address] [place], [address] Hematocrit (Bld) [Volume fraction] 39.3 % Normal 37-47 [facility] Comment on above: Performed By: #### L 500.2500, L100.0100, L700.8000 #### [facility] [address] [place], [address] Hemoglobin (Bld) [Mass/Vol] 13.8 g/dL Normal 12.0-15.0 [facility] Comment on above: Performed By: #### L 500.2500, L100.0100, L700.8000 #### [facility] [address] [place], [address] IG% 0.400 Normal 0.0-0.9 [facility] Comment on above: Result Comment: IG% - Immature Granulocytes (promyelocytes, myelocytes and metamyelocytes) > 1% indicates that a LEFT SHIFT is Present. Performed By: #### L 500.2500, L100.0100, L700.8000 #### [facility] [address] [place], [address] Lymphocytes/100 WBC (Bld) 8.3 % Low 19-41 [facility] Comment on above: Performed By: #### L 500.2500, L100.0100, L700.8000 #### [facility] [address] [place], [address] MCH (RBC) [Entitic mass] 30.5 pg Normal 27.0-32.0 [facility] Comment on above: Performed By: #### L 500.2500, L100.0100, L700.8000 #### [facility] [address] [place], [address] MCHC (RBC) [Mass/Vol] 35.1 g/dL Normal 32-36 [facility] Comment on above: Performed By: #### L 500.2500, L100.0100, L700.8000 #### [facility] [address] [place], [address] MCV (RBC) [Entitic vol] 86.9 fL Normal 81-99 [facility] Comment on above: Performed By: #### L 500.2500, L100.0100, L700.8000 #### [facility] [address] [place], [address] Monocytes/100 WBC (Bld) 2.9 % Normal 0-10 [facility] Comment on above: Performed By: #### L 500.2500, L100.0100, L700.8000 #### [facility] [address] [place], [address] Neutrophils/100 WBC (Bld) 87.3 % High 47-70 [facility] Comment on above: Performed By: #### L 500.2500, L100.0100, L700.8000 #### [facility] [address] [place], [address] Nucleated RBC (Bld) [#/Vol] 0 10*3/uL Normal 0-5 [facility] Comment on above: Performed By: #### L 500.2500, L100.0100, L700.8000 #### [facility] [address] [place], [address] Platelet mean volume (Bld) [Entitic vol] 9.8 fL Normal 6.2-12.0 [facility] Comment on above: Performed By: #### L 500.2500, L100.0100, L700.8000 #### [facility] [address] [place], [address] Platelets (Bld) [#/Vol] 254 10*3/uL Normal 150-450 [facility] Comment on above: Performed By: #### L 500.2500, L100.0100, L700.8000 #### [facility] [address] [place], [address] RBC (Bld) [#/Vol] 4.52 10*6/uL Normal 4.2-5.4 [facility] Comment on above: Performed By: #### L 500.2500, L100.0100, L700.8000 #### [facility] [address] [place], [address] RDW SD 40.7 fl Normal 35.1-43.9 [facility] Comment on above: Performed By: #### L 500.2500, L100.0100, L700.8000 #### [facility] [address] [place], [address] WBC (Bld) [#/Vol] 12.3 10*3/uL High 4.4-11.0 [facility] Comment on above: Performed By: #### L 500.2500, L100.0100, L700.8000 #### [facility] [address] [place], [address] Emergency Department Summary on 06-25-2024 Emergency Department Summary [facility] Medical Records Department [address] [place] [address] Emergency Department Summary 06/25/24 MR#: [id number] Acct: [id number] Name: GLORIA NETTLES TOBIAS Rep #: [id number] : 2000 23 From: Ignacio Murphy DO [...] History of Present Illness Chief Complaint: Anxiety [facility] Medical History Wears glasses History of steroid [...] Ox 98 Oxygen Delivery Method Room Air [facility] MDM Narrative Medical decision making narrative: HISTORY OF [...] (more content not included)... Normal [facility] ,Urineon 06-25-2024 Beta HCG ( test) Ql (U) Normal [facility] Comment on above: Result Comment: NICK ENT DISCHARGED Performed By: #### L 500.2500, L100.0100, L700.8000 #### [facility] [address] [place], [place], [address] INTERNAL QC OK? Normal [facility] Comment on above: Result Comment: NICK ENT DISCHARGED Performed By: #### L 500.2500, L100.0100, L700.8000 #### [facility] [address] [place], [place], [address] RECORD KIT LOT# Normal [facility] Comment on above: Result Comment: NICK ENT DISCHARGED Performed By: #### L 500.2500, L100.0100, L700.8000 #### [facility] [address] [place], [place], [address] Emergency Department Summary on 06-11-2024 Emergency Department Summary [facility] Medical Records Department [address] [place] [address] Emergency Department Summary 06/11/24 MR#: [id number] Acct: [id number] Name: GLORIA NETTLES Rep #: [id number] : 2000 23 From: Fernando Sanchez DO PCP: Dr. Wilfred Egan DO Status:DEP [...] that the patient has a care plan. [facility] Medical History Wears glasses History of steroid [...] (more content not included)... Normal [facility] ,Serum,hCG Quali.on 06-11-2024 HCG, SERUM QUAL Negative Normal [facility] Comment on above: Performed By: #### L 700.6800 #### [facility] [address] [facility] [place], [address] Gastric Emptying Studyon Gastric Emptying Study [facility] Imaging Services [address] [place], [place] [address] Gastric Emptying Study MR#: [id number] Acct: [id number] Name: GLORIA NETTLES TOBIAS Rep #: [id number] : 2000 F 23 From: Stanton Jennings PCP: Dr. Wilfred Egan, DO Status: REG CLI Study: Gastric Emptying Study Date of Exam: 06/01/24 Exam# [id number] Ordering Dr: Kyleigh Joseph [id number] CLINICAL: 23-year-old female with history of chronic [...] throughout all components of the examination. (Mukund slaughter al, J Nucl Med Tech 38: 186, 2010). Electronically Signed: Stanton Elaine DO at 9:26 EDT , CC: Dr. Wilfred Egan DO; ARNULFO Fernandez Product Engineer: Signed Normal [facility] CNOVon 03-04-2024 CNOV Office Visit (FAMPWS ) GLORIA NETTLES ([id number]) 2 F Date Time Provider Department 03/04/24 9:00 AM PONCHO JAIME During your visit today, we recorded the following information about you: Pulse Respiration Blood pressure Weight 81/minute 16/minute 108/62 54.2 kg Poncho Jaime APRN.CHISEL GRINDER 03/04/2024 6:30 PM Signed Chief Complaint Patient presents with: ER F/U: Abd pain, seeing gastro next month, anxiety HPI Gloria Kady Tho is a 23 year old female who presents here today for Above Complaints.. [facility] ER on 02/27 with abdominal pain and anxiety. Is seeing Dr. Adkins GI at [facility]. Stress/anxiety-work has been frustrating lately. Has [...] somewhat and this lasts a few hours. [id number] like to take this a lot because [...] plan 11/24/2020 placed on care plan by [facility] ED for excessive visits Previous Surgical History [...] done HIV Screening Never done Chlamydia Screening () Never done Cervical Cancer Screening Never done Covid-19 Vaccine( - 2022- season) Never done Behavioral Health Screening Never done DTaP,Tdap,Td Vaccine(7 - Td or Tdap) due on 03/30/2024 Influenza Vaccine(1) due on 04/19/2024 Hepatitis B Vaccine Completed Data reviewed Previous records, office notes ASSESSMENT/PLAN: 1. Anxiety - ICD9: 300.00, ICD10: F41.9 (primary diagnosis) Continue with plan to see Dr. Adkins with [facility] GI. - SERTRALINE 50 MG TABLET - CONSULT TO PSYCHIATRY 2. Abdominal cramping - ICD9: 789.00, ICD10: R10.9 Continue with plan to see Dr. Adkins with [facility] GI. - SERTRALINE 50 MG TABLET - CONSULT TO PSYCHIATRY 3. Nausea and vomiting, unspecified vomiting type (more content not included)... Normal [facility] COVID-19, MOLECULARon 2022 SARS-CoV-2 (COVID-19) Ab IA Ql Not detected Normal Not Detected [facility] Comment on above: Result Comment: [...] at the following links: For Healthcare Providers: https://www.fda.gov/media/450226/download For Patients: https://www.fda.gov/media/611874/download CT ABDOMEN PELVIS WITH IV CO NTRAST [...] on SatDecember 26, 2022 11:21:22 PM EDT [facility] Comment on above: Order Comment: Injur y/Trauma or Illness?:Illness/Other How long have you had these symptoms (acute/chronic)?:Acute Reason for exam?:abd pain and vomiting Type of Exam?:Initial Additional signs and symptoms?:none HCG Preg Ur Qlon 10-20-2020 HCG ( test) Ql (U) Negative Normal Negative [facility] Comment on above: Order Comment: Speci men Type: URINE SPECIMEN Result Comment: This test is intended to aid in the early detection of . Very dilute urine samples, as indicated by a low specific gravity, may not contain branch sales and service representative levels of hCG. This test detects [...] #### 2 106-3 #### [facility] CLIA [id number] [address] [place] [address] OF [facility] SURGICAL PATHOLOGYon 021 CASE REPORT Normal [facility] Comment on above: Order Comment: Speci men Type: TISSUE SPECIMEN Result Comment: Surg ica Pathology Report Case: [id number] Authorizing Provider: Maryjane Levy Collected: 10/20/2020 01:09 PM Ordering Location: SURGERY Received: 10/21/2020 06:46 AM Pathologist: Yves Sandoval MD Specimens: A) - DUODENUM BIOPSY, Second Portion Duodenun B) - ANTRUM C) - ESOPHAGUS BIOPSY, Mid Esophagus D) - COLON BIOPSY, Random Mucosal Biopsies Performed By: #### S #### [facility] CLIA [id number] [address] [place] [address] FINAL DIAGNOSIS Normal [facility] Comment on above: Order Comment: Speci [...] histopathologic change. Performed By: #### S #### [facility] CLIA [id number] [address] [place] [address] FINAL PERFORMING LAB Normal [facility] Comment on above: Order Comment: Speci men Type: TISSUE SPECIMEN Result Comment: Diag nostic interpretation performed at [facility], [address] [place] [address] CLIA# [id number] Fishing Vessel Deckhand: Zafar Jacome M.D. Performed By: #### S #### [facility] CLIA [id number] [address] [place] [address] GROSS DESCRIPTION Normal [facility] Comment on above: Order Comment: Speci [...] 1 cassette. RSA/pkp Gross examination performed at [facility], [address] [place] [address] CLIA# [id number] Performed By: #### S #### [facility] CLIA [id number] [address] [place] [address] Vital Signs Date Time Vital Sign Value Performing Clinician Facility 02-02-2025 08:49-0400 Body mass index (BMI) [Ratio] 19.94 kg/m2 Natali Zepeda [employer]CHISEL GRINDER Work Phone: [facility] 02-02-2025 08:49-0400 Body temperature 97.11 [degF] Natali Zepeda [employer].CHISEL GRINDER Work Phone: [facility] [place] 02-02-2025 08:49-0400 Body weight 52.7 kg Natali Zepeda [employer]ISEL GRIND[employer] Work Phone: [facility] 02-02-2025 08:49-0400 Diastolic blood pressure 62 mm[Hg] Natali Zepeda [employer].CHISEL GRINDER Work Phone: [facility] [place] 02-02-2025 08:49-0400 Heart rate 78 /min Natali Zepeda [employer].CHISEL GRINDER Work Phone: [facility] 02-02-2025 08:49-0400 Respiratory rate 16 /min Natali Zepeda [employer].CHISEL GRINDER Work Phone: [facility] 02-02-2025 08:49-0400 SaO2% (BldA) [Mass fraction] 97 % Natali Zepeda [employer].CHISEL GRINDER Work Phone: [facility] 02-02-2025 08:49-0400 Systolic blood pressure 108 mm[Hg] Natali Zepeda [employer].CHISEL GRINDER Work Phone: [facility] 03-04-2024 09:10-0400 Body mass index (BMI) [Ratio] 20.49 kg/m2 Poncho Addison [employer]EL GR[employer] Work Phone: [facility] 03-04-2024 09:10-0400 Body [facility].16 [facility] [employer] [employer].CHISEL GRINDER Work Phone: [facility] 03-04-2024 09:10-0400 Diastolic blood pressure 62 mm[Hg] Poncho Addison [employer].CHISEL GR[employer]ER Work Phone: [facility] 03-04-2024 09:10-0400 Heart rate 81 /min Poncho Addison [employer]ISEL GR[employer]ER Work Phone: [facility] 03-04-2024 09:10-0400 Respiratory rate 16 /min Poncho Addison [employer]EL GR[employer] Work Phone: [facility] 03-04-2024 09:10-0400 SaO2% (BldA) [Mass fraction] 99 % Poncho Addison [employer]EL GR[employer] Work Phone: [facility] 03-04-2024 09:10-0400 Systolic blood pressure 108 mm[Hg] Poncho Addison [employer]EL [employer] Work Phone: [facility] 10-19-2022 15:14-0500 Body temperature 97.81 [degF] Wilfred Egan DO Work Phone: [facility] 10-19-2022 15:14-0500 Body weight 55.79 kg Wilfred Egan DO Work Phone: [facility] 10-19-2022 15:14-0500 Diastolic blood pressure 60 mm[Hg] Wilfred Egan DO Work Phone: [facility] 10-19-2022 15:14-0500 Heart rate 96 /min Wilfred Egan DO Work Phone: [facility] 10-19-2022 15:14-0500 Respiratory rate 16 /min Wilfred Egan DO Work Phone: [facility] 10-19-2022 15:14-0500 Systolic blood pressure 120 mm[Hg] Wilfred Egan DO Work Phone: [facility] 05-20-2022 03:36-0400 Body height 160 cm Savage Scott MD Work Phone: [facility] 05-20-2022 03:36-0400 Body mass index (BMI) [Ratio] 23.03 kg/m2 Savage Scott MD Work Phone: [facility] 05-20-2022 03:36-0400 Body weight 58.97 kg Savage Scott MD Work Phone: [facility] 05-20-2022 03:35-0400 Body temperature 98.1 [degF] Savage Scott MD Work Phone: [facility] 05-20-2022 03:35-0400 Diastolic blood pressure 60 mm[Hg] Savage Scott MD Work Phone: [phone](681)[phone] [address] 05-20-2022 03:35-0400 Heart rate 105 /min Savage Scott MD Work Phone: [phone] [address] 05-20-2022 03:35-0400 Respiratory rate 20 /min Savage Scott MD Work Phone: 3(790)[phone] [address] 05-20-2022 03:35-0400 SaO2% (BldA) [Mass fraction] 99 % Savage Scott MD Work Phone: [phone] [place] [address] 05-20-2022 03:35-0400 Systolic blood pressure 127 mm[Hg] Savage Scott MD Work Phone: [facility] 01-17-2022 08:29-0400 Body weight 61.24 kg Poncho Addison [employer]ISEL GRINDER Work Phone: [facility] 01-17-2022 08:29-0400 Diastolic blood pressure 74 mm[Hg] Poncho Addison [employer].CHISEL GRINDER Work Phone: [facility] 01-17-2022 08:29-0400 Heart rate 74 /min Poncho Addison [employer].CHISEL GRINDER Work Phone: [facility] 01-17-2022 08:29-0400 Respiratory rate 16 /min Poncho Addison [employer].CHISEL GRINDER Work Phone: [facility] 01-17-2022 08:29-0400 SaO2% (BldA) [Mass fraction] 97 % Poncho Addison [employer].CHISEL GRINDER Work Phone: [facility] 01-17-2022 08:29040 Systolic blood pressure 104 mm[Hg] Poncho Addison [employer].CHISEL GRINDER Work Phone: [facility] Encounters Encounter Date Encounter Type Care Provider Facility Start: 05-21-2025 ambulatory Raina Crowe Facility :[facility] Start: 05-21-2025 End: 05-21-2025 ambulatory Raina Crowe Facility:[facility] Start: 05-13-2025 End: 05-13-2025 Emergency department patient visit Wilfred Egan Facility:[facility] Start: 05-12-2025 End: 05-12-2025 Emergency department patient visit Zafar Marrero Facility:[facility] Start: 05-04-2025 End: 05-04-2025 ambulatory Raina Crowe Facility:[facility] Start: 02-03-2025 End: 02-03-2025 Follow-up encounter Lisa Banda [employer]EL GRINDER Work Phone: [facility] Start: 02-02-2025 End: 02-02-2025 Patient encounter procedure Natali Zepeda [employer].CHISEL GRINDER Work Phone: [facility] Comment on above: Hematuria, unspecifi ed type (Primary Dx); Vaginal discomfort; Encounter for screening for bacterial sexually transmitted disease Start: 02-02-2025 End: 02-02-2025 ambulatory WILFRED EGAN Facility:[facility] Start: 10-20-2024 End: 10-20-2024 Emergency department patient visit Faychris De Los Santos Facility:[facility] Start: 06-25-2024 End: 06-25-2024 Emergency department patient visit Ignacio Murphy Facility:[facility] Start: 06-11-2024 End: 06-11-2024 Emergency department patient visit Fernando Sanchez Facility:[facility] Start: 06-02-2024 ambulatory Wilfred Egan Facilit y:[facility] Start: 06-01-2024 End: 06-01-2024 ambulatory Kyleigh Joseph Facility:[facility] Start: 03-04-2024 End: 03-04-2024 ambulatory PONCHOADRIEN JAIME Facility:[facility] Start: 03-04-2024 End: 03-04-2024 Office outpatient visit 25 minutes Poncho Jaime APRNNETTA Work Phone: [facility] Comment on above: Anxiety (Primary Dx) ; Abdominal cramping; Nausea and vomiting, unspecified vomiting type Start: 05-15-2023 End: 05-15-2023 Emergency department patient visit CHASITY DOUGLASS [facility] Start: 12-28-2022 End: 12-28-2022 Emergency department patient visit WILFRED CALLAHANRISON [facility] Start: 12-26-2022 End: 12-27-2022 Emergency department patient visit WILFRED Cristina EGAN [facility] Start: 10-22-2022 Patient encounter status Marco Antonio Egan DO Work Phone: [facility] Work Phone: Start: 10-19-2022 End: 10-19-2022 Patient encounter procedure Wilfred Cristina Avtar [place] Work Phone: [facility] Comment on above: Well adult exam (Beatris andreas Dx); Anxiety; Thyromegaly Start: 10-19-2022 End: 10-19-2022 Patient encounter status Wilfred Callahanrison Work Phone: [facility] Start: 05-20-2022 End: 05-20-2022 Emergency department patient visit SAVAGE SCOTT Facility:[facility] Start: 05-20-2022 End: 05-20-2022 Emergency department patient visit Savage Scott MD Work Phone: [facility] Start: 02-01-2022 End: 02-01-2022 Patient encounter procedure Bowen Leroy GARNISHER Work Phone: Psychology Comment on above: No-show for appointm ent (Primary Dx) Start: 01-17-2022 Telephone encounter Bowen augustin GARNISHER Work Phone: Psychology Comment on above: Consult (Initial [facility] W Pt Outreach) Start: 01-17-2022 End: 01-17-2022 Patient encounter procedure Poncho Jaime [employer]CHISEL GRINDER Work Phone: [facility] Comment on above: Major depressive dis order, remission status unspecified, unspecified whether recurrent (Primary Dx); Anxiety; Chronic superficial gastritis without bleeding; Lower abdominal pain Procedures Date Procedure Procedure Detail Performing Clinician Start: 02-02-2025 Urnls dip stick/tabl et rgnt auto w/o microscopy Natali Zepeda [employer].CHISEL GRINDER Work Phone: Plan of Treatment Date Care Activity Detail Author Start: 02-02-2026 GC (Gonorrhea) Scree anne () GC (Gonorrhea) Screening () [facility] Start: 02-02-2026 Screening for Chlamy ihsan trachomatis Chlamydia Screening () [facility] Start: 04-19-2025 Influenza vaccination Influenz a Vaccine (Season Ended) [facility] Start: 06-24-2024 End: 06-24-2024 Patient encounter procedure 06/24/2024 2:20 PM EST Office Visit Family [facility] [address] [place], [place] [address] Wilfred Egan, [address] [place], [place] [phone] Physical [facility] Comment on above: Physical Start: 04-23-2024 End: 04-23-2024 ambulatory 04/23/2024 10:00 AM EDT [facility] [address] [place] [address] Nichol Dowell, [employer]CHISEL GRINDER [address] [place] [phone] Anxiety [F41.9] Psychiatry Comment on above: Anxiety [F41.9] Start: 04-19-2024 Covid-19 Vaccine ( season) Covid-19 Vaccine ( season) [facility] Start: 04-19-2024 Influenza vaccination Influenza Vacc ine (#1) [facility] Start: 03-30-2024 Urine microalbumin profile [facility] Start: 10-20-2023 COVID-19 VACCINE (#1) COVID-19 VACCI NE (#1) [facility] Comment on above: Postponed from 12/24 (Declined at this time) Start: 08-19-2023 Behavioral Health Screening Behavioral Health Screening [facility] Start: 04-19-2023 Covid-19 Vaccine ( season) Covid-19 Vaccine () [facility] Start: 02-15-2023 Influenza vaccination INFLUENZA (#1) [facility] Comment on above: Postponed from 04/19 (Declined at this time) Start: 10-19-2022 End: 12-19-2022 CBC W Auto Differential panel - Blood CBC + DIFF Lab Routine Anxiety Thyromegaly Expected: 10/19/2022, Expires: 12/19/2022 [facility] Work Phone: Comment on above: Expected: 10/19/2022 , Expires: 12/19/2022 Start: 10-19-2022 End: 12-19-2022 Comprehensive metabolic 2000 panel - Serum or Plasma COMP METABOLIC PANEL Lab Routine Anxiety Thyromegaly Expected: 10/19/2022, Expires: 12/19/2022 [facility] Work Phone: Comment on above: Expected: 10/19/2022 , Expires: 12/19/2022 Start: 10-19-2022 End: 12-19-2022 THYROID PEROXIDASE ANTIBODY BLOOD THYROID PEROXIDASE ANTIBODY BLOOD Lab Routine Anxiety Thyromegaly Expected: 10/19/2022, Expires: 12/19/2022 [facility] Work Phone: Comment on above: Expected: 10/19/2022 , Expires: 12/19/2022 Start: 10-19-2022 End: 12-19-2022 Thyrotropin [Units/volume] in Serum or Plasma TSH BLD Lab Routine Anxiety Thyromegaly Expected: 10/19/2022, Expires: 12/19/2022 [facility] Work Phone: Comment on above: Expected: 10/19/2022 , Expires: 12/19/2022 Start: 10-19-2022 End: 12-19-2022 Thyroxine (T4) free [Mass/volume] in Serum or Plasma T4 FREE/FREE THYROX Lab Routine Anxiety Thyromegaly Expected: 10/19/2022, Expires: 12/19/2022 [facility] Work Phone: Comment on above: Expected: 10/19/2022 , Expires: 12/19/2022 Start: 10-19-2022 End: 12-19-2022 Triiodothyronine (T3) Free [Mass/volume] in Serum or Plasma T3 FREE BLD Lab Routine Anxiety Thyromegaly Expected: 10/19/2022, Expires: 12/19/2022 [facility] Work Phone: Comment on above: Expected: 10/19/2022 , Expires: 12/19/2022 Start: 2022 PAP TESTING PAP TESTING [facility] Start: 2022 Screening for malign ant neoplasm of cervix Cervical Cancer Screening [facility] Start: 04-19-2022 Influenza vaccination [facility] Start: 2020 Third diphtheria, te tanus and acellular pertussis (DTaP) vaccination TDAP (ADULT) [facility] Start: 2019 CHLAMYDIA SCREENING (18-24) CHLAMYDIA SCREENING (18-24) [facility] Start: 2019 Depression Screening Depression Scre ening [facility] Start: 2019 GC (GONORRHEA) SCREE ANNE (18-24) GC (GONORRHEA) SCREENING (18-24) [facility] Start: 2019 HEPATITIS C SCREENING HEPATITIS C [facility] Start: 2019 Hepatitis C screening Hepatitis C [facility] Start: 2019 HIV SCREENING HIV SCREENING [facility] Start: 2019 HIV screening HIV Screening [facility] Start: 2019 Screening for Chlamy ihsan trachomatis Chlamydia Screening (18-24) [facility] Start: 2019 Tetanus vaccination TETANUS [facility] Start: 2017 Meningococcal B Vacc ine (1 of 2 - Standard) Meningococcal B Vaccine (1 of 2 - Standard) [facility] Start: 2017 Meningococcal B Vacc ine: Consider Based On Risk (1 of 2 - Patient Seeks Protection) Meningococcal B Vaccine: Consider Based On Risk (1 of 2 - Patient Seeks Protection) [facility] Start: 2017 Screening for Chlamy ihsan trachomatis CHLAMYDIA SCREEN [facility] Start: 2016 HIV screening HIV SCREENING DISCUSSION [facility] Start: 2016 HPV Vaccine (1 - 3-d ose series) HPV Vaccine (1 - 3-dose series) [facility] Start: 2015 PEDS TO ADULT TRANSI TION ANNUAL ASSESSMENT PEDS TO ADULT TRANSITION ANNUAL ASSESSMENT [facility] Start: 2013 Adult depression scr eening assessment DEPRESSION SCREENING [facility] Start: 2013 PEDS TO ADULT TRANSI TION INITIAL DISCUSSION PEDS TO ADULT TRANSITION INITIAL DISCUSSION [facility] Start: 2012 HPV VACCINE (1 - 2-d ose series) HPV VACCINE (1 - 2-dose series) [facility] Start: 2012 Vaccination for rhett n papillomavirus HPV VACCINE ADOL (1 - 2-dose series) [facility] Start: 2011 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 (1 of 2 - Risk Bexsero 2-dose series) 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 B: Consider based on risk (1 of 2 - Risk Bexsero 2-dose series) [facility] Start: 2006 COVID-19 VACCINE (#1) COVID-19 VACCI NE (#1) [facility] Start: 2001 COVID-19 VACCINE (#1) COVID-19 VACCI NE (#1) [facility] Start: 2001 GONORRHEA SCREEN GONORRHEA SCREEN [facility] Start: 2001 Hepatitis C antibody , confirmatory test HEPATITIS C VIRUS SCREENING [facility] Bacteria identified in Urine by Culture BACTERIAL CULTURE, URINE Microbiology Routine Hematuria, unspecified type 02/02/2025 9:02 AM EDT [facility] Work Phone: BACTERIAL VAGINOSIS NAAT BACTERI AL VAGINOSIS NAAT Lab Routine Vaginal discomfort Encounter for screening for bacterial sexually transmitted disease 02/02/2025 9:02 AM EDT [facility] ADELITA/TRICHOMONAS NAAT ADELITA /TRICHOMONAS NAAT Lab Routine Vaginal discomfort Encounter for screening for bacterial sexually transmitted disease 02/02/2025 9:02 AM EDT [facility] Chlamydia trachomatis+Neisseria gonorrhoeae DNA [Presence] in Unspecified specimen by OLIVIA with probe detection GONORRHEA/CHLAMYDIA NAAT Lab Routine Vaginal discomfort Encounter for screening for bacterial sexually transmitted disease 02/02/2025 9:02 AM EDT [facility] End: 05-20-2022 Standard ECG [facility] Work Phone: Comment on above: One Time for 1 Francesco ziegler starting 05/20/2022 until 05/20/2022 Immunizations Immunization Date Immunization Notes Care Provider Fa gemini 06-03-2020 influenza virus vacc ine, unspecified formulation Poncho Addison [employer]OM[employer] Work Phone: [facility] 04-07-2019 meningococcal polysaccharide (groups A, C, Y and W-135) diphtheria toxoid conjugate vaccine (MCV4P) Poncho Addison [employer]OM[employer].CHISEL GRINDER Work Phone: [facility] Work Phone: 03-30-2014 Meningococcal, MCV4, unspecified conjugate formulation(groups A, C, Y and W-135) Poncho Addison [employer]OM[employer].CHISEL GRINDER Work Phone: [facility] Work Phone: 03-30-2014 tetanus toxoid, redu delfino diphtheria toxoid, and acellular pertussis vaccine, adsorbed Poncho Addison [employer]OM[employer].CHISEL GRINDER Work Phone: [facility] Work Phone: 01-27-2007 diphtheria, tetanus toxoids and acellular pertussis vaccine Poncho Addison [employer]OM[employer].CHISEL GRINDER Work Phone: [facility] Work Phone: 01-27-2007 measles, mumps and rubella virus vaccine Poncho Addison [employer]OM[employer].CHISEL GRINDER Work Phone: [facility] Work Phone: 01-27-2007 poliovirus vaccine, inactivated Poncho Addison [employer]OM[employer]IVE.CHISEL GRINDER Work Phone: [facility] Work Phone: 01-27-2007 varicella virus vaccine Bridget Jaime [employer]OM[employer].CHISEL GRINDER Work Phone: [facility] Work Phone: 12-28-2005 varicella virus vaccine Bridget Jaime [employer]ER [employer]OMOTIVE.[facility] Work Phone: [facility] Work Phone: 12-21-2002 diphtheria, tetanus toxoids and acellular pertussis vaccine Poncho Addison [employer]OMOT[employer].[facility] Work Phone: [facility] Work Phone: 09-21-2002 haemophilus influenz ae type b vaccine, HbOC conjugate Poncho Addison [employer]OM[employer].[facility] Work Phone: [facility] Work Phone: 07-15-2002 hepatitis B vaccine, pediatric or pediatric/adolescent dosage Poncho Addison [employer]OMOT[employer].[facility] Work Phone: [facility] Work Phone: 07-15-2002 measles, mumps and rubella virus vaccine Poncho Addison [employer] W[employer]ER AUTOMOTIVE.[facility] Work Phone: [facility] Work Phone: 07-15-2002 poliovirus vaccine, inactivated Poncho Addison [employer]ER [employer]OMOTIVE.[facility] Work Phone: [facility] Work Phone: 01-22-2002 haemophilus influenz ae type b vaccine, HbOC conjugate Poncho Addison [employer] AUTOMOTIVE.CHISEL GRINDER Work Phone: [facility] Work Phone: 2001 diphtheria, tetanus toxoids and acellular pertussis vaccine Poncho Addison [employer] W[employer]ER AUTOMOTIVE.CHISEL GRINDER Work Phone: [facility] Work Phone: 2001 hepatitis B vaccine, pediatric or pediatric/adolescent dosage Poncho Addison [employer] W[employer]ER AUTOMOTIVE.CHISEL GRINDER Work Phone: [facility] Work Phone: 2001 diphtheria, tetanus toxoids and acellular pertussis vaccine Poncho Addison [employer]ER AUTOMOTIVE.[facility] Work Phone: [facility] Work Phone: 2001 haemophilus influenz ae type b vaccine, HbOC conjugate Poncho Addison ARMATURE WINDER [employer]OM[employer].[facility] Work Phone: [facility] [place] Work Phone: 2001 poliovirus vaccine, inactivated Poncho Addison ARMATURE W[employer]ER [employer]OM[employer].[facility] Work Phone: [facility] [place] Work Phone: 2001 diphtheria, tetanus toxoids and acellular pertussis vaccine Poncho Addison [employer]URE W[employer]ER [employer]OM[employer].[facility] Work Phone: [facility] [place] Work Phone: 2001 haemophilus influenz ae type b vaccine, HbOC conjugate Poncho Addison ARMATURE W[employer]OM[employer].[facility] Work Phone: [facility] [place] Work Phone: 2001 poliovirus vaccine, inactivated Poncho Addison [employer]URE W[employer].[facility] Work Phone: [facility] [place] Work Phone: 2001 hepatitis B vaccine, pediatric or pediatric/adolescent dosage Poncho Addison [employer]URE [employer].[facility] Work Phone: [facility] [place] Work Phone: Payers Date Payer Category Payer Self-pay [id number] 2022 Self-pay [id number] 2015 [facility] BLUE CARD O OOS [id number] 2015 Unknown [employer] BLUE CARD PPO OOS [id number] 2015-Present [phone] [address] [place] [address] PPO [id number] 2015 Unknown [employer] BLUE CARD PPO OOS [id number] 2015-Present [phone] [address] [place] [address] PPO [id number] 2015 Unknown [id number] 2001 Unknown [id number] 2001 Unknown [id number] .902 2001 Unknown [id number] .902 2001 Unknown [id number] .902 Unknown [id number] .462 Unknown [id number] .462 Unknown [id number] [id number] .462 Unknown [id number] [id number] .462 Unknown [id number] [id number] .462 Unknown [id number] [id number] .462 Unknown [id number] [id number] .462 Unknown [id number] [id number] .462 Unknown [id number] [id number] .462 Unknown [id number] .462 Social History Date Type Detail Facility Start: 10-19-2022 Tobacco smoking stat [facility] Never smoked tobacco [facility] [place] Start: 01-17-2022 End: 03-04-2024 Alcohol intake Current non-drinker of alcohol (finding) [facility] Start: 2001 Sex Assigned At Not on file C [facility] Start: 01-07-2022 End: 05-20-2022 Exposure to SARS-CoV-2 (event) Not sure [facility] Tobacco smoking stat [facility] Tobacco smoking consumption unknown [facility] Start: 10-19-2022 Tobacco use and exposure Smokeless tobacco non-user [facility] [place] Work Phone: Start: 05-15-2023 End: 03-04-2024 History of Social function [facility] [place] Start: 05-15-2023 End: 03-04-2024 Tobacco use panel [facility] Adult Depression Screening Assessment 0 [facility] Clinical Notes 01-17-2022 to 02-03-2025 Telephone Encounter - Maye Hernandez LPN - 02/03/2025 7:25 PM EDTTelephone Encounter - Maye Hernandez LPN - 02/03/2025 7:25 PM Natali Garcia APRN.[facility] - 02/02/2025 8:59 AM EDTAttachments Note Date & Type Note Facility 02-03-2025 Telephone encounter Note Patient notified.Maye Hernandez LPN [facility] [place] 02-03-2025 Miscellaneous Notes Patient notified.Maye Hernandez LPN The urine culture has returned and has mixed microbes. Please follow up with PCP for repeat urine to ensure blood has resolved. Patient notified of results, verbalized understanding of instructions given. Ana Solano MA ----- Message from Lisa Banda APRN.CNP sent [...] Lisa Banda APRN.CNP documented in this encounter [facility] 02-03-2025 Telephone encounter Note The urine culture has returned and has mixed microbes. Please follow up with PCP for repeat urine to ensure blood has resolved. [facility] Work Phone: 02-03-2025 Telephone encounter Note Patient notified of results, verbalized understanding of instructions given. Ana Solano MA [facility] 02-03-2025 Telephone encounter Note ----- Message from [...] culture is still processing. Lisa Banda APRN.CNP [facility] 02-03-2025 Telephone encounter Note ----- Message from [...] culture is still processing. Lisa Banda APRN.CNP [facility] 02-02-2025 Note HNO ID: [id number] Author: NATALI ZEPEDA APRN.[facility] Service: ? Author Type: Nurse Practitioner Type: [...] plan 11/24/2020 placed on care plan by [facility] for excessive visits PAST SURGICAL HISTORY [...] unspecified type (R31 (more content not included)... [facility] 02-02-2025 History of Present illness Narrative [facility] Subjective Gloria Nettles is [...] plan 11/24/2020 placed on care plan by [facility] for excessive visits PAST SURGICAL HISTORY [...] results to guide treatment and Recording using Flint and T[employer] software for draft documentation of the visit was discussed with the patient/authorized branch sales and service representative; all questions welcomed and answered. Patient/authorized branch sales and service representative agreed to proceed MDM Procedures documented in this encounter [facility] 03-04-2024 Instructions Poncho Jaime APRN.CNP - 03/04/2024 9:53 AM EDT Schedule with [facility] Continue your current medications. We'll add the Zoloft for you to take in the evenings. documented in this encounter [facility] 03-04-2024 Note HNO ID: [id number] Author: PONCHO JAIME APRN.[facility] Service: ? Author Type: Nurse Practitioner Type: Progress Notes Filed: 03/04/2024 18:30 Note Text: Chief Complaint Patient presents with: ER F/U: Abd pain, seeing gastro next month, anxiety HPI Gloria Nettles is a 23 year old female who presents here today for Above Complaints.. [facility] ER on 02/27 with abdominal pain and anxiety. Is seeing Dr. Adkins GI at [facility]. Stress/anxiety-work has been frustrating lately. Has [...] somewhat and this lasts a few hours. Neotdo-zlw-ivmdw't like to take this a lot because [...] plan 11/24/2020 placed on care plan by [facility] for excessive visits Previous Surgical History [...] with plan to see Dr. Adkins with [facility]. - SERTRALINE 50 MG TABLET - CONSULT TO PSYCHIATRY 2. Abdominal cramping - ICD9: 789.00, ICD10: R10.9 Continue with plan to see Dr. Adkins with [facility]. - SERTRALINE 50 MG TABLET - CONSULT TO PSYCHIATRY 3. Nausea and vomiting, unspecified vomiting type - ICD9: 787.01, ICD10: R11.2 Continue with plan to see Dr. Adkins with [facility]. - SERTRALINE 50 MG TABLET - CONSULT TO PSYCHIATRY Poncho Jaime APRN.[facility] 03-04-2024 History of Present illness Narrative Chief Complaint Patient presents with: ER F/U: Abd pain, seeing gastro next month, anxiety HPI Gloria Nettles is a 23 year old female who presents here today for Above Complaints.. [facility] ER on 02/27 with abdominal pain and anxiety. Is seeing Dr. Adkins GI at [facility]. Stress/anxiety-work has been frustrating lately. Has [...] somewhat and this lasts a few hours. Mwahfc-rzz-gnidz't like to take this a lot because [...] plan 11/24/2020 placed on care plan by [facility] for excessive visits Previous Surgical History [...] with plan to see Dr. Adkins with [facility]. - SERTRALINE 50 MG TABLET - CONSULT TO PSYCHIATRY 2. Abdominal cramping - ICD9: 789.00, ICD10: R10.9 Continue with plan to see Dr. Adkins with [facility]. - SERTRALINE 50 MG TABLET - CONSULT TO PSYCHIATRY 3. Nausea and vomiting, unspecified vomiting type - ICD9: 787.01, ICD10: R11.2 Continue with plan to see Dr. Adkins with [facility]. - SERTRALINE 50 MG TABLET - CONSULT TO PSYCHIATRY Poncho Jaime APRN.[employer] documented in this encounter [facility] 10-22-2022 History of Present illness Narrative CC: [...] home. She is renting a home in [place]. 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 She is unsure what her future goals in life are- unsure if will go to school or find another job etc. Does have friend support. PAST MEDICAL HISTORY Diagnosis Date Intractable vomiting with nausea, unspecified vomiting type Marijuana user Noncompliance with treatment plan 11/24/2020 placed on care plan by [facility] for excessive visits PAST SURGICAL HISTORY [...] diet of 1000 mg/day for under 50, 5381-2688 mg/day for 50+ 2. Anxiety - ICD9: [...] agreed with the plan. Wilfred Egan DO [address] [place] [address] documented in this encounter [facility] 05-20-2022 Hospital Discharge instructions Shaun Bean MD - 05/20/2022 5:40 AM EDT You came to the Emergency Department today for anxiety. You were given Ativan with improvement in your symptoms as well as Compazine for nausea. The following attachments cannot be sent through Care Everywhere.Anxiety Disorders: General Info (Faroese)documented in this encounter [facility] 05-20-2022 Emergency department Note Patient c/o anxiety and panic attacks. Patient states that panic attack is getting better but is not going away. Patient concerned that her anxiety is keeping friends awake. Patient denies SI/HI [facility] 05-20-2022 Emergency department Note Patient c/o anxiety and panic attacks. Patient states that panic attack is getting better but is not going away. Patient concerned that her anxiety is keeping friends awake. Patient denies SI/HI documented in this encounter [facility] 02-01-2022 History of Present illness Narrative Behavioral Health Social Work Assessment Patient was seen for an initial evaluation. All information is from patient report except when noted. This evaluation is NOT intended for forensic, disability, or child custody purposes. Informed consent was discussed and signed by the patient. -Pt was sent mychart msg with consent for tx -mychart msg viewed [facility] Assessment: Virtual No Show 9:10am Pt had not joined visit -SW attempted to contact Pt -no answer -left vm, if available to join visit please join visit, SW will remain on visit for additional 15 min, if unable please call to reschedule appt 9:50am -no response from Pt -sent mychart msg to reschedule appt, -included no show ltr Patient identified for [facility] from: PCP (Poncho Jaime CNP) Reason for referral: [facility] Assessment (failed mental health tx,depression/anxiety) [facility] encounter type: Reffpediahart Message Attempts to Outreach: 5 attempts Referral [...] N/A BUDDY Brenner documented in this encounter [facility] 01-17-2022 Miscellaneous Notes BEHAVIORAL HEALTH SOCIAL WORK CONSULT NOTE Service Date: January 17, 2022 Patient was identified by name and Patient: Gloria Mendez [facility] [id number] (home) [phone] (cell) PCP: Wilfred Egan, DO [address] [facility] [address] Patient identified for [facility] from: PCP (Poncho Jaime CNP) Reason for referral: [facility] Assessment (failed mental health tx,depression/anxiety) [facility] encounter type: Telephone Encounter Assessment: [facility] received a consult from Poncho Jaime CNP, for assessment failed mental health tx, depression/anxiety BHSW reviewed Pt's chart/insurance SW contacted Pt -scheduled 02-01-22 at 9am virtual -[facility] with appt info, consent for tx, PHQ9 [...] -Patient advised of treatment options available at [facility]. Patient was informed that they will be moving on for further evaluation if seeking treatment within the [facility] system. Reason for External Referrals : N/A Intervention: Supportive Listening Scheduled Assessment Offered virtual visit Resources Provided: Further evaluation and assessment Virtual Visit Time Spent: 15 minutes BUDDY Brenner documented in this encounter [facility] 01-17-2022 Instructions Poncho Jaime APRN.[facility] - 01/17/2022 8:54 AM EDT Start on Cymbalta. Take the Ativan (lorazepam) as needed for severe anxiety/depression. Take the hycosamine as needed for cramping. Take Zofran as needed for the nausea/vomiting. documented in this encounter [facility] 01-17-2022 History of Present illness Narrative Chief [...] not have heartburn. Has a job at [employer]. Has been off work the past 2 days because has not been feeling well. They are pretty understanding with her. Is embarrassing and frustrating. Multiple ER visits. Extensive GI workup. Past medical history, appointments, medications, allergies reviewed. Has stopped taking the Zoloft. Did IOP program at [facility]. Was then prescribed Remeron-felt poorly [...] plan 11/24/2020 placed on care plan by [facility] for excessive visits Previous Surgical History [...] - LORAZEPAM 0.5 MG TABLET Poncho Jaime APRN.CHISEL GRINDER PDMP website checked and validated. All prescriptions have been APPROPRIATELY filled. No suspicious activity was identified. 01/17/2022 by Poncho Jaime CNP. Greater than 50% of 40-minute visit spent face to face with patient in counseling and education. documented in this encounter [facility] Evaluation note Diagnosis Major depressive disorder, remission status unspecified, unspecified whether recurrent- Primary Anxiety Anxiety state, unspecified Chronic superficial gastritis without bleeding Atrophic gastritis without mention of hemorrhage Lower abdominal pain Abdominal pain, other specified site documented in this encounter [facility] Diagnosis No-show for appointment- Primary [facility] Diagnosis Anxiety- Primary Anxiety state, unspecified [facility] Well adult exam- Primary Routine general medical examination at a health care facility Anxiety Anxiety state, unspecified Thyromegaly Goiter, unspecified [facility] Diagnosis Anxiety- Primary Anxiety state, unspecified Abdominal cramping Abdominal pain, unspecified site Nausea and vomiting, unspecified vomiting type [facility] Diagnosis Hematuria, unspecified type- Primary Vaginal discomfort Unspecified symptom associated with female genital organs Encounter for screening for bacterial sexually transmitted disease documented in this encounter [facility] Summary Purpose Family History No Family History Records FoundNo Family History Records FoundNo Family History Records FoundNo Family History Records FoundNo Family History Records Found Advance Directives No Advanced Directives Records FoundDocuments on File Type Date Recorded Patient Director Adult Expl anation Advance Directive(s) 10/20/2020 10:47 AM Reason for Referral Specialty Diagnoses / Procedures Referred By Claudio gonzales Referred To Contact Procedures ECG Savage Scott MD [address] [place] [phone] Referral ID Status Reason Start Date Expiration Date V isits Requested Visits Authorized [id number] New Request 05/20/2022 06/14/2023 1 1 Specialty Diagnoses / Procedures Referred By Claudio t Referred To Contact Diagnoses Anxiety Abdominal cramping Nausea and vomiting, unspecified vomiting type Procedures CONSULT TO PSYCHIATRY OFFICE/OUTPATIENT [facility] 60 MINUTES Poncho Jaime APRN.CNP [address] [place] [address] Referral ID Status Reason Start Date Expiration Date Visits Requested Visits Authorized [id number] Pending Review PCP Requested Referral 03/04/2024 03/04/2025 1 1 Additional Source Comments INFORMATION SOURCE (unrecogn ized section and content) DATE CREATED AUTHOR 10/27/2020 [facility] DATE CREATED AUTHOR AUTHOR'S ORGANIZ ATION 06/14/2022 [facility] DATE CREATED AUTHOR AUTHOR'S ORGANIZ ATION 05/23/2023 [facility] DATE CREATED AUTHOR AUTHOR'S ORGANIZ ATION 02/04/2025 [facility] DATE CREATED AUTHOR AUTHOR'S ORGANIZ ATION 05/29/2025 [facility] Source Comments (unrecognize d section and content) In the event this informatio n is protected by the Federal Confidentiality of Alcohol and Drug Abuse Patient Records regulations: The Federal rules restrict any use of the information to criminally investigate or prosecute any alcohol or drug abuse patient.[facility] the event this information is protected by the Federal Confidentiality of Alcohol and Drug Abuse Patient Records regulations: The Federal rules restrict any use of the information to criminally investigate or prosecute any alcohol or drug abuse patient.[facility] the event this information is protected by the Federal Confidentiality of Alcohol and Drug Abuse Patient Records regulations: The Federal rules restrict any use of the information to criminally investigate or prosecute any alcohol or drug abuse patient.[facility] the event this information is protected by the Federal Confidentiality of Alcohol and Drug Abuse Patient Records regulations: The Federal rules restrict any use of the information to criminally investigate or prosecute any alcohol or drug abuse patient.[facility] the event this information is protected by the Federal Confidentiality of Alcohol and Drug Abuse Patient Records regulations: The Federal rules restrict any use of the information to criminally investigate or prosecute any alcohol or drug abuse patient.[facility] the event this information is protected by the Federal Confidentiality of Alcohol and Drug Abuse Patient Records regulations: The Federal rules restrict any use of the information to criminally investigate or prosecute any alcohol or drug abuse patient.[facility] the event this information is protected by the Federal Confidentiality of Alcohol and Drug Abuse Patient Records regulations: The Federal rules restrict any use of the information to criminally investigate or prosecute any alcohol or drug abuse patient.[facility] the event this information is protected by the Federal Confidentiality of Alcohol and Drug Abuse Patient Records regulations: The Federal rules restrict any use of the information to criminally investigate or prosecute any alcohol or drug abuse patient.[facility] Reason for Visit (unrecogniz ed section and content) Reason Comments Anxiety Depression Abdominal Pain Vomiting Reason Comments Consult Initial [facility] Pt Outr each Reason Comments Consult [facility] Assessment [facility] Specialty Diagnoses / Procedures Referred By Claudio gonzales Referred To Contact Psychiatry / ADULT PSYCHOLOGY Diagnoses 1st eval Procedures VIDEO PSYC/PSYL Poncho Delgado, VICTORINA.CHISEL GRINDER [address] [place] [address] Bowen Leroy LISW [address] [place] [address] Referral ID Status Reason Start Date Expiration Date V isits Requested Visits Authorized [id number] Authorized 08/19/2021 08/18/2022 99 99 Reason Comments Anxiety Reason Comments Hospital F/U Reason Comments ER F/U Abd pain, seeing gas tro next month, anxiety Reason Comments Hematuria x 2 days Care Teams (unrecognized sec tion and content) Lead Athlete Relationship Specialty Start Date End Date Wilfred Egan, DO [address] [place], [place] [id number] PCP - General Family Practice 09/05/15 Lead Athlete Relationship Specialty Start Date End Date Wilfred Egan DO [address] [facility] [place] [address] PCP - General Family Practice 09/05/15 Lead Athlete Relationship Specialty Start Date End Date Wilfred Egan DO [address] [place] [address] PCP - General Family Practice 09/05/15 Lead Athlete Relationship Specialty Start Date End Date Wilfred Egan DO [address] [place] [address] PCP - General Family Medicine 09/05/15 Lead Athlete Relationship Specialty Start Date End Date Wilfred Egan DO [address] [place] [address] PCP - General Family Medicine 09/05/15 Lead Athlete Relationship Specialty Start Date End Date Wilfred Egan DO [address] [facility] [place] [address] PCP - General Family Medicine 09/05/15 Poncho Jaime, ARMATURE WINDER AUTOMOTIVE.[employer] GR[employer]ER [address] [facility] [place] [address] Combine Inspector Family Medicine 07/26/24 Olivia Sin, ARMATURE WINDER AUTOMOTIVE.CHISEL GRINDER [address] [facility] [place] [address] Combine Inspector Family Medicine 02/01/25 Lead Athlete Relationship Specialty Start Date End Date Wilfred Egan DO [address] [facility] [place] [address] PCP - General Family Medicine 09/05/15 Poncho Jaime, ARMATURE WINDER AUTOMOTIVE.CHISEL GRINDER [address] [place], [place] [address] [facility] 07/26/24 Olivia Sin APRN.CHISEL GRINDER [address] [place] [address] [facility] 02/01/25 Scheduled Active and Recently Administ ered Medications (unrecognized section and content) Medication Order 05/18/2022 05/19/2022 05/20/2022 LORazepam (ATIVAN) tablet 2 mg (COMPLETED) 2 mg, Oral, ONCE, 1 dose, On 05/20/22 at 0515 1086 (Given - Provid er: Db Cooper RN) prochlorperazine (COMPAZINE) tablet 5 mg (COMPLETED) 5 mg, Oral, ONCE, 1 dose, On 05/20/22 at 0509 5330 (Given - Provid er: Db Cooper, JENIFER) FOR RECORDS PERTAINING TO PATIENTS WHO ARE [...] BE BASED ON THE PRIMARY CLINICAL RECORDS. [employer] provides no warranty or guarantee of the accuracy or completeness of information in this document.
--- NOTE | 2025-06-03 05:15 | ED.RN ---
pt very emotional and having difficulties controlling her anxiety. Placed an ice bag with a wash cloth on the back of her neck,gave her an alchol pad to shiff to decrease her nausea,turned the lights down placed a blanket on her.Pt encouraged to find her calming place. Asked if she wanted to watch tv, listen to music,pt declined for now.
[2025-06-03 05:16] LABS: Squamous Epithelial Cells - UA 50-100 SEEN /hpf (5-10)
--- NOTE | 2025-06-03 05:27 | EX.ED.DYSGE1 ---
HPI History of Present Illness Chief Complaint: Nausea/Vomiting/Diarrhea Narrative Narrative: Patient is a 24-year-old female with past medical history of anxiety, depression, panic disorder, marijuana use who presents to the emergency department chief complaint of nausea and vomiting. Patient is currently 10 weeks she states that this is her first . States that she threw up a couple times yesterday and then threw up twice this morning which caused her to panic and come to the emergency department to be evaluated. States that she is following with [facility]. Patient denies any recent sick contacts. She states that she has had EGD and colonoscopy in the past because she had multiple episodes of vomiting and they are trying to figure out why. She states that she was told that there is something with her small intestine related the colonoscopy but she does not rated member the exact details of this. [facility] Medical History Marijuana use Panic disorder Major depressive disorder, single episode, severe without psychosis Generalized anxiety disorder Home Medications ?Medication ?Instructions ?Recorded ?Last Taken ?Type hydroxyzine pamoate 25 mg capsule 25 - 50 mg (1 - 2 x 25 mg) PO TID 05/13/25 Unknown Rx PRN PRN Anxiety #30 CAPSULES ondansetron 4 mg disintegrating 4 mg PO Q8H PRN PRN Nausea #20 tabs 05/13/25 Unknown Rx tablet pyridoxine (vitamin B6) 10 mg 10 mg PO TID PRN nausea and 05/13/25 Unknown Rx tablet vomiting #20 tabs cephalexin 500 mg capsule 500 mg PO BID #10 caps 06/03/25 Unknown Rx Allergy/AdvReac Type Severity Reaction Status Date / Time No Known Allergies Allergy Verified 06/03/25 04:46 Family History Mother Thyroid disorder Father Asthma COPD (chronic obstructive pulmonary disease) Grandmother Cardiac pacemaker Surgical History Hx of colonoscopy History of esophagogastroduodenoscopy (EGD) Social History adopted: No household members: other details: Mom & step dad number of children: 0 current occupational status: employed 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 current occupational exposures/hazards: No pets and animals: Yes (Not managing litterbox ) pets and animals: cat(s) history of recent travel: Yes (Mar 2025) out of state: Yes out of country: No sexually active: Yes Smoking Status: Former smoker quit date: 04/20/25 second hand exposure: No quit status: quit date established alcohol intake: current alcohol intake frequency: a few times a month details: Not while substance use type: former substance user Date of last use: Apr 20, 2025 well-balanced diet: about half the time caffeine: No eating out: 1-3 times/week during the past year weight has: remained stable what type of physical activity do you participate in: walking frequency: 1-2 times per week duration: < 15 minutes/day dustin/jainism: None seatbelt use: always do you feel safe at home: Yes additional social history: BF: [employer] @ [employer] ROS ROS ED ROS Narrative Constitutional: Denies any fevers or chills Eyes: Denies double vision Cardiovascular: Denies chest pain Respiratory: Shortness of breath Abdomen: Complains of nausea vomiting as noted above denies abdominal pain : Denies urinary symptoms denies any vaginal spotting or bleeding Neurological: Denies any numbness, weakness, tingling Musculoskeletal: Denies back pain Skin: Denies any rashes or lesions EXAM Physical Exam Narrative Exam Narrative: General: Patient is lying in bed rest comfortably do not appear to be in acute distress Head: Atraumatic, normocephalic Eyes: PERRL bilaterally, EOMI bilaterally, no conjunctival injection noted Neck: Soft, supple, trachea midline Cardiovascular: Regular rate and rhythm Abdomen: Soft, nondistended, no tenderness to palpation Extremities: +5/5 strength noted in the bilateral lower extremities Neurological: Patient follow commands knew that she was at [facility] years 2024 Skin: Warm, dry, intact no rashes or lesions noted Const Vital Signs: 06/03/25 04:43 Temperature 98.1 F Temperature Source Oral Pulse Rate 72 Respiratory Rate 18 Blood Pressure 142/84 H Blood Pressure Mean 103 Pulse Ox 100 Oxygen Delivery Method Room Air MDM MDM MDM Narrative Medical decision making narrative: Patient is a 24-year-old female who presents to the emergency department the chief complaint of nausea and vomiting in the setting of . On the differential diagnose includes but not limited to viral gastroenteritis, morning sickness over UTI. Once workup is obtained reviewed she will be reevaluated. Patient given IV fluids and Reglan. Patient urinalysis reviewed and showed negative nitrates negative leukocyte esterase 0-5 white cells with 3+ bacteria she does have 50-100 squamous epithelial cells this is likely contaminant however we will give her a dose of Rocephin here in the emergency department and urine will be sent for culture. For asymptomatic bacteria in At 6:30 AM on reevaluation the patient she is resting comfortably in bed and she states that she is feeling better and would like to go home. She was advised to follow-up with her [facility] in the outpatient setting. She is vies take antibiotics as prescribed. She is encouraged to return with worsening symptoms or any concerns. She is agreeable this plan all question concerns answered she is discharged home in stable condition Lab Data Labs: Laboratory Results - last 24 hr 06/03/25 04:56 Urine Color Yellow Urine Clarity Sl. Cloudy Urine pH 6.0 Ur Specific [place] 1.025 Urine Protein 30 H Urine Glucose (UA) Normal Urine Ketones 50 H Urine Occult Blood Negative Urine Nitrite Negative Urine Bilirubin Negative Urine Urobilinogen Normal Ur Leukocyte Esterase Negative Urine RBC 0 SEEN Urine WBC 0-5 SEEN Ur Squamous Epith Cells 50-100 SEEN Urine Bacteria 3+ Urine Mucus 0 SEEN Discharge Plan Triage Chief Complaint: Nausea/Vomiting/Diarrhea ED Provider: Tyler Castillo Dx/Rx/DC Orders Clinical Impression: , Nausea & vomiting, Asymptomatic bacteriuria during Prescriptions: New cephalexin 500 mg capsule 500 mg PO BID Qty: 10 0RF No Action ondansetron 4 mg tablet,disintegrating 4 mg PO Q8H PRN PRN (Reason: Nausea) Qty: 20 0RF hydroxyzine pamoate 25 mg capsule 25 - 50 mg PO TID PRN PRN (Reason: Anxiety) Qty: 30 0RF pyridoxine (vitamin B6) 10 mg tablet 10 mg PO TID PRN (Reason: nausea and vomiting) Qty: 20 0RF Rx Instructions: Take with Unisom (doxylamine) for morning sickness Primary Care Provider: Wilfred Nova Referrals: Wilfred Nova, [Primary Care Provider, Medical] Activity Restrictions/Additional Instructions: Take the antibiotic as prescribed for a UTI. Follow-up on urine culture. Return with worsening symptoms or other concerns. Continue take your vitamin and to hydrate with plenty of water. Print Language: Maori Disposition Disposition: Home, Self Care
--- NOTE | 2025-06-03 05:42 | ED.RN ---
pt is no longer crying,appears to resting quietly.
[2025-06-03 07:14] VITALS: BP 121/64; PULSE 67; RESP 16; TEMP 36.8; O2SAT 100
== END 2025-06-03 07:15 | disposition home or self-care (01) ==
PROVIDERS: Emergency Provider Emergency Medicine; PCP Student in an Organized Health Care Education/Training Program; Visit Provider Emergency Medicine
DX: O21.9 Vomiting of pregnancy, unspecified (principal); O99.891 Other specified diseases and conditions complicating pregnancy; R82.71 Bacteriuria; O99.341 Other mental disorders complicating pregnancy, first trimester; F41.0 Panic disorder [episodic paroxysmal anxiety]; F32.A Depression, unspecified; Z3A.10 10 weeks gestation of pregnancy; Z87.891 Personal history of nicotine dependence
CPT/HCPCS: 81001; 87077; 87086; 87088; 87186; 96361; 96365; 96375; 99282; A4216

== ENCOUNTER 2025-06-09 01:28 | Emergency (ER) | payer BC, SELFPAY ==
[2025-06-09 01:29] VITALS: BP 134/66; PULSE 97; RESP 20; TEMP 36.6; O2SAT 99; BMI 19.6
[2025-06-09 01:45] LABS: Hematocrit 35.9 % (37-47); Hemoglobin 13.2 g/dL (12.0-15.0); Immature Granulocytes Count 0.050 X10^3/uL (0.0-0.0); Mean Corp Hgb Conc 36.8 g/dL (32-36); Mean Corpuscular Volume 86.9 fL (81-99); Mean Platelet Vol. 9.8 fl (6.2-12.0); NRBC Flagged by Analyzer 0 % (0-5); Platelet Count 319 K/mm3 (150-450); RBC Distribution Width CV 12.6 % (11.6-14.6); RBC Distribution Width SD 39.6 fl (35.1-43.9); Red Blood Count 4.13 M/mm3 (4.2-5.4); White Blood Count 16.4 K/mm3 (4.4-11.0)
[2025-06-09 02:16] LABS: Mucous, Urine 0 SEEN /hpf (<or=2+); Red Blood Cells-Urine 0 SEEN /hpf (0-5)
[2025-06-09 02:17] LABS: Internal QC Validated? YES +Cl - CLEAR BKGD; Pregnancy, Serum, hCG Quali. NEGATIVE Negative; Record Kit Lot#, Serum Preg. 0000980607
[2025-06-09 02:18] LABS: Color, Urine Yellow (Yellow); Glucose, Dipstick Normal (Normal); Leukocyte Esterase-Dipstick Negative /ul (Negative); Nitrite-Dipstick Negative (Negative); Occult Blood-Urine 10 /ul (Negative); Protein-Dipstick 30 mg/dl (Negative); Specific Gravity, Urine 1.030 (1.002-1.030); Urine Bilirubin Dipstick Negative (Negative)
[2025-06-09 02:22] LABS: AST(SGOT) 18 U/L (<=31); Alanine Aminotransfer ALT/SGPT 12 U/L (<=34); Albumin, Serum 4.6 g/dL (3.5-5.0); Alkaline Phosphatase 56 U/L (35-104); Anion Gap 17 (5-15); BUN 9 mg/dL (4-19); BUN/Creat Ratio 15.5 RATIO (10-20); Calcium,Total 9.6 mg/dL (7.6-11.0); Carbon Dioxide 17.7 mmol/L (21.0-32.0); Chloride 103 mmol/L (98-108); Estimated Creatinine Clearance 121.89 ml/min (50-250); Globulin 2.7 g/dL (2.2-4.2); Glucose 119 mg/dL (70-99); Lipase 42 U/L (13-75); Potassium 3.6 mmol/L (3.3-5.1)
[2025-06-09 02:29] LABS: Squamous Epithelial Cells - UA 0-5 SEEN /hpf (5-10); Transitional Epithelial - Ur 0-5 SEEN /hpf (0-5)
[2025-06-09 03:28] VITALS: BP 108/64; PULSE 84; RESP 16; O2SAT 100
[2025-06-09] MEDS: 0.9% Normal Saline (1000mL) 1,000 ML 999 ML IV (04:21)
[2025-06-09] MEDS: DiphenhydrAMINE 50 MG/ML Syringe 12.5 MG IV (04:21)
[2025-06-09 05:00] VITALS: BP 112/65; PULSE 81; RESP 16; O2SAT 99
[2025-06-09 05:41] VITALS: BP 131/68; PULSE 61; RESP 16; TEMP 36.6; O2SAT 98
[2025-06-10 06:14] LABS: Ketone-Dipstick 150 mg/dl (Negative)
== END 2025-06-09 05:50 | disposition home or self-care (01) ==
PROVIDERS: Emergency Provider Emergency Medicine; PCP Student in an Organized Health Care Education/Training Program; Visit Provider Emergency Medicine
DX: R11.2 Nausea with vomiting, unspecified (principal); R10.31 Right lower quadrant pain; E86.0 Dehydration; D25.2 Subserosal leiomyoma of uterus; F32.A Depression, unspecified; F41.9 Anxiety disorder, unspecified; F17.290 Nicotine dependence, other tobacco product, uncomplicated
CPT/HCPCS: 74177; 80053; 81001; 83690; 84703; 85025; 96361; 96374; 99283; Q9967; A4216

== ENCOUNTER → 2025-06-11 | Outpatient (CLI) | payer BC, SELFPAY ==
[2025-06-11 12:33] LABS: Hematocrit 35.8 % (37-47); Hemoglobin 12.6 g/dL (12.0-15.0); Immature Granulocytes Count 0.050 X10^3/uL (0.0-0.0); Mean Corp Hgb Conc 35.2 g/dL (32-36); Mean Corpuscular Volume 90.2 fL (81-99); Mean Platelet Vol. 10.0 fl (6.2-12.0); NRBC Flagged by Analyzer 0 % (0-5); Platelet Count 267 K/mm3 (150-450); RBC Distribution Width CV 12.7 % (11.6-14.6); RBC Distribution Width SD 42.1 fl (35.1-43.9); Red Blood Count 3.97 M/mm3 (4.2-5.4); White Blood Count 9.9 K/mm3 (4.4-11.0)
[2025-06-11 13:51] LABS: HIV Nonreactive (Nonreactive); Hepatitis B Surface Antigen Nonreactive (Nonreactive); Hepatitis C Antibody Nonreactive (Nonreactive); Syphilis Antibodies Nonreactive (Nonreactive)
== END | disposition home or self-care (01) ==
PROVIDERS: Advanced Practice Midwife; PCP Student in an Organized Health Care Education/Training Program; Visit Provider Obstetrics & Gynecology
DX: O09.90 Supervision of high risk pregnancy, unspecified, unspecified trimester (principal); Z3A.00 Weeks of gestation of pregnancy not specified
CPT/HCPCS: 36415; 85025; 86703; 86762; 86780; 86803; 86850; 86900; 86901; 87340

== ENCOUNTER 2025-06-29 02:28 | Emergency (ER) | payer BC, SELFPAY ==
[2025-06-29 02:30] VITALS: BP 135/65; PULSE 92; RESP 22; TEMP 36.8; O2SAT 100; BMI 20.5
[2025-06-29] MEDS: 0.9% Normal Saline (1000mL) 1,000 ML 999 ML IV (03:00)
--- OUTSIDE RECORDS SUMMARY | 2025-06-29 03:29 | XMS RPT_ITS | CCD ---
Author Organization [facility] Care Team Providers Care Socially Responsible Investment Adviser Name Role Phone Avtar BIRMING[place]AM Wilfred L Primary Care Provider Unavailable Primary Care Provider UnavailSAVAGE Ibanez Attending Unavailable Egan DO, Wilfred L Primary Care Provider CHASITY PARIKH Attending Unavailable EGAN, WILFRED L Primary Care Unavailable EGAN, WILFRED L Primary Care Unavailable RIK TORRES Attending Unava ilable EGAN, WILFRED L Primary Care Unavailable CHASITY PARIKH Attending Unavailable Egan DO, Wilfred L Primary Care Provider Sheldon GUEST SERVICE TEAM LEADER.PALMIRA Poncho Unavailable [facility] GUEST SERVICE TEAM LEADER.Olivia CHAVIS Unavailable EGAN, WILFRED L Primary Care Unavailable NATALI ZEPEDA Attending Unavailable SHELDONPONCHO RETANA Attending Unavailable EGAN, WILFRED L Primary Care Unavailable Raina Crowe Attending Unavailable Egan, Wilfred Referring Unavailable Egan, Wilfred Primary Care Unavailable Egan, Wilfred Referring Unavailable Raina Crowe Attending Unavailable Egan, Wilfred Primary Care Unavailable Egan, Wilfred Primary Care Unavailable Tyler Castillo Attending Unavailable Egan, Wilfred Primary Care Unavailable Raisa Ortiz Attending Unavailable Raina Crowe Attending Unavailable Egan, Wilfred Primary Care Unavailable Egan, Wilfred Primary Care Unavailable Fay De [place] Santos Attending Unavailable Egan, Wilfred Primary Care Unavailable Ignacio Murphy Attending Unavailable Egan, Wilfred Primary Care Unavailable Zafar Marrero Attending Unavailable Egan, Wilfred Primary Care Unavailable Fay De [place] Attending Unavailable Heladio Ahumada Attending Unavailable Egan, Wilfred Primary Care Unavailable Egan, Wilfred Primary Care Unavailable Egan, Wilfred Referring Unavailable Raisa Ortiz Attending Unavailable Wilfred Egan Referring Unavailable Wilfred Egan Primary Care Unavailable Raisa Ortiz Attending Unavailable Medications Current Medications Medication Drug [...] Comment on above: Take 1 capsule by [facility] once daily. fluconazole 150 mg oral tablet [...] high risk , unspecified, unspecified trimester] Onset: 06-16-2025 Episodic Other female genital disorders (1 source) Vaginal discomfort; Translations: [Unspecified condition associated with female genital organs and menstrual cycle] 02-02-2025 Episodic Other female genital disorders (1 source) Unspecified condition associated with female genital organs and menstrual cycle; Translations: [Vaginal discomfort] Onset: 02-02-2025 Episodic Residual codes; unclassified (1 source) Did not attend; Translations: [Procedure and treatment not carried out because of patient's decision for other reasons] Episodic Residual codes; unclassified (1 source) 8 weeks gestation of ; Translations: [8 weeks gestation of ] Onset: 05-21-2025 Episodic Substance-related disorders (4 sources) Cannabis use, unspecified, uncomplicated; Translations: [Drug use complicating , unspecified trimester] Onset: 05-15-2023 Episodic Thyroid disorders (5 sources) [...] Test Name Value Interpretation Reference Range Facility CBC W/Diff, Automatedon 05-20 Absolute Lymph 1.22 X10 3/uL Normal 0.83-4.51 [facility] Comment on above: Performed By: #### B TS, L509.4006, L3890.6102, L900.0098, L3890.6006, L100.0100, L509.8002, L3890.6301 #### [facility] [address] [place], [address] Absolute Neut 8.1 X10 3/uL High 2.0-7.7 [facility] Comment on above: Performed By: #### B TS, L509.4006, L3890.6102, L900.0098, L3890.6006, L100.0100, L509.8002, L3890.6301 #### [facility] [address] [place], [address] Basophils/100 WBC (Bld) 0.4 % Normal 0-1 [facility] Comment on above: Performed By: #### B TS, L509.4006, L3890.6102, L900.0098, L3890.6006, L100.0100, L509.8002, L3890.6301 #### [facility] [address] [place], [address] Eosinophils/100 WBC (Bld) 0.6 % Normal 0-5 [facility] Comment on above: Performed By: #### B TS, L509.4006, L3890.6102, L900.0098, L3890.6006, L100.0100, L509.8002, L3890.6301 #### [facility] [address] [place], [address] Erythrocyte distribution width (RBC) [Ratio] 12.7 % Normal 11.6-14.6 [facility] Comment on above: Performed By: #### B TS, L509.4006, L3890.6102, L900.0098, L3890.6006, L100.0100, L509.8002, L3890.6301 #### [facility] [address] [place], [address] Hematocrit (Bld) [Volume fraction] 35.8 % Low 37-47 [facility] Comment on above: Performed By: #### B TS, L509.4006, L3890.6102, L900.0098, L3890.6006, L100.0100, L509.8002, L3890.6301 #### [facility] [address] [place], [address] Hemoglobin (Bld) [Mass/Vol] 12.6 g/dL Normal 12.0-15.0 [facility] Comment on above: Performed By: #### B TS, L509.4006, L3890.6102, L900.0098, L3890.6006, L100.0100, L509.8002, L3890.6301 #### [facility] [address] [facility] [place], [address] IG% 0.500 Normal 0.0-0.9 [facility] Comment on above: Result Comment: IG% - Immature Granulocytes (promyelocytes, myelocytes and metamyelocytes) > 1% indicates that a LEFT SHIFT is Present. Performed By: #### B TS, L509.4006, L3890.6102, L900.0098, L3890.6006, L100.0100, L509.8002, L3890.6301 #### [facility] [address] [facility] [place], [address] Lymphocytes/100 WBC (Bld) 12.3 % Low 19-41 [facility] Comment on above: Performed By: #### B TS, L509.4006, L3890.6102, L900.0098, L3890.6006, L100.0100, L509.8002, L3890.6301 #### [facility] [address] [facility] [place], [address] MCH (RBC) [Entitic mass] 31.7 pg Normal 27.0-32.0 [facility] Comment on above: Performed By: #### B TS, L509.4006, L3890.6102, L900.0098, L3890.6006, L100.0100, L509.8002, L3890.6301 #### [facility] [address] [place], [address] MCHC (RBC) [Mass/Vol] 35.2 g/dL Normal 32-36 [facility] Comment on above: Performed By: #### B TS, L509.4006, L3890.6102, L900.0098, L3890.6006, L100.0100, L509.8002, L3890.6301 #### [facility] [address] [place], [address] MCV (RBC) [Entitic vol] 90.2 fL Normal 81-99 [facility] Comment on above: Performed By: #### B TS, L509.4006, L3890.6102, L900.0098, L3890.6006, L100.0100, L509.8002, L3890.6301 #### [facility] [address] [place], [address] Monocytes/100 WBC (Bld) 4.6 % Normal 0-10 [facility] Comment on above: Performed By: #### B TS, L509.4006, L3890.6102, L900.0098, L3890.6006, L100.0100, L509.8002, L3890.6301 #### [facility] [address] [place], [address] Neutrophils/100 WBC (Bld) 81.6 % High 47-70 [facility] Comment on above: Performed By: #### B TS, L509.4006, L3890.6102, L900.0098, L3890.6006, L100.0100, L509.8002, L3890.6301 #### [facility] [address] [place], [address] Nucleated RBC (Bld) [#/Vol] 0 10*3/uL Normal 0-5 [facility] Comment on above: Performed By: #### B TS, L509.4006, L3890.6102, L900.0098, L3890.6006, L100.0100, L509.8002, L3890.6301 #### [facility] [address] [place], [address] Platelet mean volume (Bld) [Entitic vol] 10.0 fL Normal 6.2-12.0 [facility] Comment on above: Performed By: #### B TS, L509.4006, L3890.6102, L900.0098, L3890.6006, L100.0100, L509.8002, L3890.6301 #### [facility] [address] [place], [address] Platelets (Bld) [#/Vol] 267 10*3/uL Normal 150-450 [facility] Comment on above: Performed By: #### B TS, L509.4006, L3890.6102, L900.0098, L3890.6006, L100.0100, L509.8002, L3890.6301 #### [facility] [address] [place], [address] RBC (Bld) [#/Vol] 3.97 10*6/uL Low 4.2-5.4 [facility] Comment on above: Performed By: #### B TS, L509.4006, L3890.6102, L900.0098, L3890.6006, L100.0100, L509.8002, L3890.6301 #### [facility] [address] [place], [address] RDW SD 42.1 fl Normal 35.1-43.9 [facility] Comment on above: Performed By: #### B TS, L509.4006, L3890.6102, L900.0098, L3890.6006, L100.0100, L509.8002, L3890.6301 #### [facility] [address] [place], [address] WBC (Bld) [#/Vol] 9.9 10*3/uL Normal 4.4-11.0 [facility] Comment on above: Performed By: #### B TS, L509.4006, L3890.6102, L900.0098, L3890.6006, L100.0100, L509.8002, L3890.6301 #### [facility] [address] [place], [address] HIVon 06-11-2025 HIV Non-Reactive Normal Nonreactive [facility] Comment on above: Result Comment: Non- Reactive Reactive Repeatedly reactive samples must be confirmed according to CDC recommended confirmatory algorithms. The subresults for either HIVAG or AHIV can be used as an aid in the selection of the confirmation algorithm for reactive samples. Send out specimens with Reactive results to [facility] for confirmation. Order the HIV antibody detection and differentiation: lc#[id number] Performed By: #### B TS, L509.4006, L3890.6102, L900.0098, L3890.6006, L100.0100, L509.8002, L3890.6301 #### [facility] [address] [place], [place], [address] Hepatitis C Antibodyon 06-11 Hepatitis C Ab Non-Reactive Normal Nonreactive [facility] Comment on above: Result Comment: Reac tive: Presumptive evidence of antibodies to HCV. Follow CDC recommendations for supplemental testing. Non-Reactive: Antibodies to HCV were not detected; does not exclude the possibility of exposure to HCV Reactive Results are presumptive evidence of antibodies to HCV. Follow CDC recommendations for supplemental testing. Order confirmation testing: HCV Quant by PCR testing - HCVPCR lc#[id number] Non Reactive: < 0.8 Equivocal: >/= 0.8 to < 1.0 Reactive: >/= 1.0 The CDC requires that a reactive/equivocal HCV antibody result be sent out for confirmation. HCV Quant by PCR testing. Performed By: #### B TS, L509.4006, L3890.6102, L900.0098, L3890.6006, L100.0100, L509.8002, L3890.6301 #### [facility] [address] [place], [address] L3890.6102on 06-11-2025 HEP B Surf Ag Non-Reactive Normal Nonreactive [facility] Comment on above: Result Comment: Reac tive: Presumptive evidence of HBV. Repeatedly reactive samples must be confirmed using a neutralization test ([employer] HBsAg Confirmatory Test) Non-Reactive: HBsAg not detected; does not exclude the possibility of exposure to HBV Performed By: #### B TS, L509.4006, L3890.6102, L900.0098, L3890.6006, L100.0100, L509.8002, L3890.6301 #### [facility] [address] [place], [address] L509.4006on 06-11-2025 Rubella IgG REAC Normal Nonreactive [facility] Comment on above: Result Comment: Anti body Result: Interpretation Non-Reactive: Non-Immune Reactive: Immune The following results were obtained with the [employer] Rubella IgG assay. Results from assays of other manufacturers cannot be used interchangeably. Performed By: #### B TS, L509.4006, L3890.6102, L900.0098, L3890.6006, L100.0100, L509.8002, L3890.6301 #### [facility] [address] [place], [address] NATERAon 06-11-2025 NATLOVE SEE SCANNED REPORT Normal [facility] Comment on above: Performed By: #### B TS, L509.4006, L3890.6102, L900.0098, L3890.6006, L100.0100, L509.8002, L3890.6301 #### [facility] [address] [place], [address] Canopy Stringer Office Visit Reporton 06-11-2025 Canopy Stringer Office Visit Report [facility] [address], [address] [place] [address] OFFICE VISIT Date of Service: 06/11/25 MR#: [id number] Acct: [id number] Name: GLORIA NETTLES TOBIAS Rep #: [id number] : 2000 Provider: Dr. 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 Is patient in pain?: No Allergies No Known Allergies Allergy (Verified 06/11/25 11:48) Medications ???Medication ???Instructions ???Recorded ???Confirmed ???Type hydroxyzine pamoate 25 mg capsule 25 - 50 mg (1 - 2 x 25 mg) PO TID 05/13/25 06/11/25 Rx PRN PRN Anxiety #30 CAPSULES ondansetron 4 mg disintegrating 4 mg PO Q8H PRN PRN Nausea #20 tab s 05/13/25 06/11/25 Rx tablet pyridoxine (vitamin B6) 10 mg 10 mg PO TID PRN nausea and 06/11/25 Rx tablet vomiting #20 tabs dicyclomine 20 mg tablet 20 mg PO 4X/DAY PRN Abdominal 05/2006/11/25 Rx bloating/spasm 7 days #28 tabs prochlorperazine maleate 10 mg 10 mg PO TID PRN nausea and 06/11/25 Rx tablet (Compazine) vomiting 7 days #21 tabs Last Menstrual Period: 03/25/25 Zika: Zika virus screening: Negative : No PFSH PFSH Medical History Marijuana use [...] 0 current occupational status: employed current occupation: [employer] current occupational exposures/hazards: No pets and animals: Yes (Not managing litterbox ) pets and animals: cat(s) history of recent travel: Yes ( - Mar 2025) out of state: Yes out of country: No sexually active: Yes Smoking Status: Current some day smoker tobacco type: e-cigarettes second hand exposure: No quit status: quit [...] times per week duration: < 15 minutes/day dustin/yazidi: None seatbelt use: always do you feel safe at home: Yes additional social history: BF: [employer] 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 OB Visit SAIMA Calculator Estimated Delivery Date Method Current WG Current Estimate 12/30/25 LMP (Certain) 11w 1d Other Estimates 01/03/26 Ultrasound #1 10w 4d Expected Delivery Route/Plan Labor Preferences- CB/BF classes: [...] Dilation -???-???-???-???-???-???-???- ???-???-???-???-???- Effaced St Visit Note 05/21/25 -???-???-???-???-???-???-???- ???-???-???-???-???- 8w 1d 110 lb (+0 oz) 120/79 -???-???-???-???-???-???-???- ???-???-???-???-???- 148 -???-???-???-???-???-???-???- ???-???-???-???-???- KW CRL (more content not included)... [facility] Syphilis Antibodieson 2024 Syphilis Abs Non-Reactive Normal Nonreactive [facility] Comment on above: Performed By: #### B TS, L509.4006, L3890.6102, L900.0098, L3890.6006, L100.0100, L509.8002, L3890.6301 #### [facility] [address] [place], [place], [id number] Type AND Screenon 06-11-2025 Ab SCREEN GEL Negative Normal [facility] Comment on above: Order Comment: PN Performed By: #### B TS, L509.4006, L3890.6102, L900.0098, L3890.6006, L100.0100, L509.8002, L3890.6301 #### [facility] [address] [place], [address] ABO and Rh group Nom (Bld) Blood group A Rh(D) positive Normal [facility] Comment on above: Order Comment: PN Performed By: #### B TS, L509.4006, L3890.6102, L900.0098, L3890.6006, L100.0100, L509.8002, L3890.6301 #### [facility] [address] [place], [address] Urinalysis, Completeon 06-10 KETONE UR 150 mg/dl Abnormal Negative [facility] Comment on above: Order Comment: COLLE CTOR TO SPECIFY Result Comment: CRIT ICAL VALUE *H CRITICAL VALUE CALLED TO MMARTIAN 06/09/25 0220 Miguel Spaulding. RESULTS READ BACK BY SAME. AMENDED REPORT 06/10/25 0614 KETONE UR previously reported as: 150 mg/dl CRITICAL VALUE *H Performed By: #### B TS, L509.4006, L3890.6102, L900.0098, L3890.6006, L100.0100, L509.8002, L3890.6301 #### [facility] [address] [place], [address] Abdomen/Pelvis W IV Cont ONL Yon 06-09-2025 Abdomen/Pelvis W IV Cont ONLY [facility] [address] [place] [address] Abdomen/Pelvis W IV Cont ONLY MR#: [id number] Acct: [id number] Name: GLORIA NETTLES TOBIAS Rep #: [id number] : 2000 F 24 From: Gordon sheehan MD PCP: Dr. Wilfred Egan, DO Status: REG ER Study: Abdomen/Pelvis W IV Cont ONLY Date of Exam: Exam# [id number] Ordering Dr: Heladio Ahumada DO PROCEDURE: ABDOMEN/PELVIS W IV CONT ONLY 06/09/2025 REASON FOR EXAM: RLQ PAIN TECHNIQUE: Procedure Code: CTABDPELIV Modality: CT Procedure: ABDOMEN/PELVIS W IV CONT ONLY Coronal and Sagittal reconstruction series were provided. CONTRAST: OMNIPAQUE 350 VOLUME: 100 mL One or more dose reduction techniques were used (e.g., Automated exposure control, adjustment of the mA and/or kV according to patient size, use of iterative reconstruction technique. RADIATION DOSE SUMMARY: CTDlvol: 5.81 mGy DLP: 262 mGycm COMPARISON: None. FINDINGS: Heterogeneous degenerated subserosal fibroid arising from the anterior wall of the uterine body measuring 8.3 x 8.2 cm showing prominent cystic degeneration. Minimal amount of reactive free pelvic fluid. Mild apparent thickening of the ascending and transverse colon. Underdistention, spasm versus mild colitis. Scattered fluid-filled small bowels in the pelvis, probably enteritis. The visualized lung bases are unremarkable. Normal liver. Normal gallbladder and extrahepatic biliary system. Normal spleen. Normal pancreas. Normal bilateral adrenal glands. Normal size of the right kidney. There is no right renal mass. There are no right renal calculi. There is no right hydronephrosis. Normal visualized right ureter. Normal size of the left kidney. There is no left renal mass. There are no left renal calculi. There is no left hydronephrosis. Normal visualized left ureter. Chronic focal cortical scarring of the upper pole of the left kidney. The appendix is visualized and appears normal. Normal abdominal aorta. Normal inferior vena cava. Normal retroperitoneum. Normal urinary bladder. There is no pelvic lymphadenopathy. Normal abdominal wall. Normal osseous structures. CT/Abdomen/Pelvis W IV Cont ONLY IMPRESSION: Heterogeneous degenerated subserosal fibroid arising from the anterior wall of the uterine body measuring 8.3 x 8.2 cm showing prominent cystic degeneration. Minimal amount of reactive free pelvic fluid. Mild apparent thickening of the ascending and transverse colon. Underdistention, spasm versus mild colitis. Scattered fluid-filled small bowels in the pelvis, probably enteritis. Reading Location: [id number] CC: Dr. Wilfred Egan DO; Heladio Ahumada DO Peripheral Vascular Tech: Signed Normal [facility] CBC W/Diff, Automatedon 10-2 -2024 Absolute Lymph 1.56 X10 3/uL Normal 0.83-4.51 [facility] Comment on above: Performed By: #### B TS, L509.4006, L3890.6102, L900.0098, L3890.6006, L100.0100, L509.8002, L3890.6301 #### [facility] [address] [place], [address] Absolute Neut 14.3 X10 3/uL High 2.0-7.7 [facility] Comment on above: Performed By: #### B TS, L509.4006, L3890.6102, L900.0098, L3890.6006, L100.0100, L509.8002, L3890.6301 #### [facility] [address] [place], [address] Basophils/100 WBC (Bld) 0.2 % Normal 0-1 [facility] Comment on above: Performed By: #### B TS, L509.4006, L3890.6102, L900.0098, L3890.6006, L100.0100, L509.8002, L3890.6301 #### [facility] [address] [place], [address] Eosinophils/100 WBC (Bld) 0.1 % Normal 0-5 [facility] Comment on above: Performed By: #### B TS, L509.4006, L3890.6102, L900.0098, L3890.6006, L100.0100, L509.8002, L3890.6301 #### [facility] [address] [place], [address] Erythrocyte distribution width (RBC) [Ratio] 12.6 % Normal 11.6-14.6 [facility] Comment on above: Performed By: #### B TS, L509.4006, L3890.6102, L900.0098, L3890.6006, L100.0100, L509.8002, L3890.6301 #### [facility] [address] [place], [address] Hematocrit (Bld) [Volume fraction] 35.9 % Low 37-47 [facility] Comment on above: Performed By: #### B TS, L509.4006, L3890.6102, L900.0098, L3890.6006, L100.0100, L509.8002, L3890.6301 #### [facility] [address] [place], [address] Hemoglobin (Bld) [Mass/Vol] 13.2 g/dL Normal 12.0-15.0 [facility] Comment on above: Performed By: #### B TS, L509.4006, L3890.6102, L900.0098, L3890.6006, L100.0100, L509.8002, L3890.6301 #### [facility] [address] [place], [address] IG% 0.300 Normal 0.0-0.9 [facility] Comment on above: Result Comment: IG% - Immature Granulocytes (promyelocytes, myelocytes and metamyelocytes) > 1% indicates that a LEFT SHIFT is Present. Performed By: #### B TS, L509.4006, L3890.6102, L900.0098, L3890.6006, L100.0100, L509.8002, L3890.6301 #### [facility] [address] [place], [address] Lymphocytes/100 WBC (Bld) 9.5 % Low 19-41 [facility] Comment on above: Performed By: #### B TS, L509.4006, L3890.6102, L900.0098, L3890.6006, L100.0100, L509.8002, L3890.6301 #### [facility] [address] [place], [address] MCH (RBC) [Entitic mass] 32.0 pg Normal 27.0-32.0 [facility] Comment on above: Performed By: #### B TS, L509.4006, L3890.6102, L900.0098, L3890.6006, L100.0100, L509.8002, L3890.6301 #### [facility] [address] [place], [address] MCHC (RBC) [Mass/Vol] 36.8 g/dL High 32-36 [facility] Comment on above: Performed By: #### B TS, L509.4006, L3890.6102, L900.0098, L3890.6006, L100.0100, L509.8002, L3890.6301 #### [facility] [address] [place], [address] MCV (RBC) [Entitic vol] 86.9 fL Normal 81-99 [facility] Comment on above: Performed By: #### B TS, L509.4006, L3890.6102, L900.0098, L3890.6006, L100.0100, L509.8002, L3890.6301 #### [facility] [address] [place], [address] Monocytes/100 WBC (Bld) 2.9 % Normal 0-10 [facility] Comment on above: Performed By: #### B TS, L509.4006, L3890.6102, L900.0098, L3890.6006, L100.0100, L509.8002, L3890.6301 #### [facility] [address] [place], [address] Neutrophils/100 WBC (Bld) 87.0 % High 47-70 [facility] Comment on above: Performed By: #### B TS, L509.4006, L3890.6102, L900.0098, L3890.6006, L100.0100, L509.8002, L3890.6301 #### [facility] [address] [place], [address] Nucleated RBC (Bld) [#/Vol] 0 10*3/uL Normal 0-5 [facility] Comment on above: Performed By: #### B TS, L509.4006, L3890.6102, L900.0098, L3890.6006, L100.0100, L509.8002, L3890.6301 #### [facility] [address] [place], [address] Platelet mean volume (Bld) [Entitic vol] 9.8 fL Normal 6.2-12.0 [facility] Comment on above: Performed By: #### B TS, L509.4006, L3890.6102, L900.0098, L3890.6006, L100.0100, L509.8002, L3890.6301 #### [facility] [address] [place], [address] Platelets (Bld) [#/Vol] 319 10*3/uL Normal 150-450 [facility] Comment on above: Performed By: #### B TS, L509.4006, L3890.6102, L900.0098, L3890.6006, L100.0100, L509.8002, L3890.6301 #### [facility] [address] [place], [address] RBC (Bld) [#/Vol] 4.13 10*6/uL Low 4.2-5.4 [facility] Comment on above: Performed By: #### B TS, L509.4006, L3890.6102, L900.0098, L3890.6006, L100.0100, L509.8002, L3890.6301 #### [facility] [address] [place], [address] RDW SD 39.6 fl Normal 35.1-43.9 [facility] Comment on above: Performed By: #### B TS, L509.4006, L3890.6102, L900.0098, L3890.6006, L100.0100, L509.8002, L3890.6301 #### [facility] [address] [place], [address] WBC (Bld) [#/Vol] 16.4 10*3/uL High 4.4-11.0 [facility] Comment on above: Performed By: #### B TS, L509.4006, L3890.6102, L900.0098, L3890.6006, L100.0100, L509.8002, L3890.6301 #### [facility] [address] [place], [address] Comprehensive Metabolic Prof [facility] 06-09-2025 Albumin [Mass/Vol] 4.6 g/dL Normal 3.5-5.0 [facility] Comment on above: Performed By: #### B TS, L509.4006, L3890.6102, L900.0098, L3890.6006, L100.0100, L509.8002, L3890.6301 #### [facility] [address] [place], [address] Albumin/Globulin [Mass ratio] 1.7 {ratio} Normal 0.9-2.4 [facility] [facility] Comment on above: Performed By: #### B TS, L509.4006, L3890.6102, L900.0098, L3890.6006, L100.0100, L509.8002, L3890.6301 #### [facility] [address] [place], [address] ALK PHOS 56 U/L Normal 35-104 [facility] Comment on above: Performed By: #### B TS, L509.4006, L3890.6102, L900.0098, L3890.6006, L100.0100, L509.8002, L3890.6301 #### [facility] [address] [place], [address] ALT [Catalytic activity/Vol] 12 U/L Normal <=34 [facility] Comment on above: Performed By: #### B TS, L509.4006, L3890.6102, L900.0098, L3890.6006, L100.0100, L509.8002, L3890.6301 #### [facility] [address] [place], [address] AST [Catalytic activity/Vol] 18 U/L Normal <=31 [facility] Comment on above: Performed By: #### B TS, L509.4006, L3890.6102, L900.0098, L3890.6006, L100.0100, L509.8002, L3890.6301 #### [facility] [address] [place], [place], [address] Bilirubin [Mass/Vol] 0.64 mg/dL Normal 0.00-1.30 [facility] Comment on above: Performed By: #### B TS, L509.4006, L3890.6102, L900.0098, L3890.6006, L100.0100, L509.8002, L3890.6301 #### [facility] [address] [place], [address] BUN/CRE 15.5 RATIO Normal 10-20 [facility] Comment on above: Performed By: #### B TS, L509.4006, L3890.6102, L900.0098, L3890.6006, L100.0100, L509.8002, L3890.6301 #### [facility] [address] [place], [address] Calcium [Mass/Vol] 9.6 mg/dL Normal 7.6-11.0 [facility] Comment on above: Performed By: #### B TS, L509.4006, L3890.6102, L900.0098, L3890.6006, L100.0100, L509.8002, L3890.6301 #### [facility] [address] [place], [address] Chloride [Moles/Vol] 103 mmol/L Normal 98-108 [facility] Comment on above: Performed By: #### B TS, L509.4006, L3890.6102, L900.0098, L3890.6006, L100.0100, L509.8002, L3890.6301 #### [facility] [address] [place], [address] CO2 [Moles/Vol] 17.7 mmol/L Low 21.0-32.0 [facility] Comment on above: Performed By: #### B TS, L509.4006, L3890.6102, L900.0098, L3890.6006, L100.0100, L509.8002, L3890.6301 #### [facility] [address] [place], [address] Creatinine [Mass/Vol] 0.57 mg/dL Low 0.70-1.20 [facility] Comment on above: Performed By: #### B TS, L509.4006, L3890.6102, L900.0098, L3890.6006, L100.0100, L509.8002, L3890.6301 #### [facility] [address] [place], [address] ECRCL 121.89 ml/min Normal 50-250 [facility] Comment on above: Performed By: #### B TS, L509.4006, L3890.6102, L900.0098, L3890.6006, L100.0100, L509.8002, L3890.6301 #### [facility] [address] [place], [address] GAP 17 High 5-15 [facility] Comment on above: Performed By: #### B TS, L509.4006, L3890.6102, L900.0098, L3890.6006, L100.0100, L509.8002, L3890.6301 #### [facility] [address] [place], [address] GFR/1.73 sq M.predicted among non-blacks MDRD (S/P/Bld) [Vol rate/Area] 131 mL/min/{1.73_m2} Normal >60 [facility] Comment on above: Result Comment: mL/m in/1.73m2 CKD-EPI Creatinine Equation (2020) Performed By: #### B TS, L509.4006, L3890.6102, L900.0098, L3890.6006, L100.0100, L509.8002, L3890.6301 #### [facility] [address] [place], [address] Globulin (S) [Mass/Vol] 2.7 g/dL Normal 2.2-4.2 [facility] Comment on above: Performed By: #### B TS, L509.4006, L3890.6102, L900.0098, L3890.6006, L100.0100, L509.8002, L3890.6301 #### [facility] [address] [place], [address] Glucose [Mass/Vol] 119 mg/dL High 70-99 [facility] Comment on above: Performed By: #### B TS, L509.4006, L3890.6102, L900.0098, L3890.6006, L100.0100, L509.8002, L3890.6301 #### [facility] [address] [place], [address] Potassium [Moles/Vol] 3.6 mmol/L Normal 3.3-5.1 [facility] Comment on above: Performed By: #### B TS, L509.4006, L3890.6102, L900.0098, L3890.6006, L100.0100, L509.8002, L3890.6301 #### [facility] [address] [place], [address] Sodium [Moles/Vol] 137 mmol/L Normal 133-145 [facility] Comment on above: Performed By: #### B TS, L509.4006, L3890.6102, L900.0098, L3890.6006, L100.0100, L509.8002, L3890.6301 #### [facility] [address] [place], [address] T PROT 7.3 g/dL Normal 5.9-8.4 [facility] Comment on above: Performed By: #### B TS, L509.4006, L3890.6102, L900.0098, L3890.6006, L100.0100, L509.8002, L3890.6301 #### [facility] [address] [place], [address] Urea nitrogen [Mass/Vol] 9 mg/dL Normal 4-19 [facility] Comment on above: Performed By: #### B TS, L509.4006, L3890.6102, L900.0098, L3890.6006, L100.0100, L509.8002, L3890.6301 #### [facility] [address] [place], [address] Emergency Department Summary on 06-09-2025 Emergency Department Summary [facility] Medical Records Department [address] [place] [address] Emergency Department Summary 06/09/25 MR#: [id number] Acct: [id number] Name: GLORIA NETTLES TOBIAS Rep #: [id number] : 2000 24 From: Heladio Ahumada DO PCP: Dr. Wilfred Egan DO Status:DEP ER Location: ED HPI History of Present Illness Chief Complaint: Nausea/Vomiting Informant: patient Narrative Narrative: Patient is a 24-year-old female with past medical history of anxiety and depression. She states she has had 1 day of lower abdominal pain greatest in the right lower quadrant with bouts of nausea and vomiting. She denies fevers chills or known sick contact. She states there is no associated loose stool or diarrhea. She denies any dysuria vaginal bleeding or discharge. She states she is unsure if her symptoms are related to a potential infection as she has abdominal pain associated with it and therefore comes in for evaluation [facility] Medical History Marijuana use Panic disorder [...] and Unknown Rx tablet vomiting #20 tabs dicyclomine 20 mg tablet 20 mg PO 4X/DAY PRN Abdominal 05/20 10/13 Unknown Rx bloating/spasm 7 days #28 tabs prochlorperazine maleate 10 mg 10 mg PO TID PRN nausea and Unknown Rx tablet (Compazine) vomiting 7 days #21 tabs Allergy/AdvReac Type Severity Reaction Status Date / Time No Known Allergies Allergy Verified 06/03/25 04:46 Family History Mother Thyroid disorder Father Asthma COPD (chronic obstructive pulmonary disease) Grandmother Cardiac pacemaker Surgical History Hx of colonoscopy History of esophagogastroduodenoscopy (EGD) Social History adopted: No household members: other details: Mom step dad number of children: 0 current occupational status: employed current occupation: [employer] current occupational exposures/hazards: No pets and animals: Yes (Not managing litterbox ) pets and animals: cat(s) history of recent travel: Yes (Mar 2025) out of state: Yes out of country: No sexually active: Yes Smoking Status: Current some day smoker tobacco type: e-cigarettes second hand exposure: No quit status: quit [...] times per week duration: < 15 minutes/day dustin/yazidi: None seatbelt use: always do you feel safe at home: Yes additional social history: BF: [email or web address] @ [employer] ROS ROS ED Constitutional Constitutional ED: Denies chills or fever(s) Eyes Eyes: Denies change in vision ENT ENT ED: Denies sore throat Cardiovascular Cardiovascular: Denies chest pain Respiratory/Chest Respiratory/Chest: Denies cough or dyspnea Gastrointestinal Gastrointestinal: Reports abdominal pain, nausea and vomiting; Denies diarrhea Genitourinary Genitourinary ED: Reports other Details: Negative vaginal bleeding or discharge ; Denies dysuria Musculoskeletal Musculoskeletal: Denies back pain or myalgias Integumentary Denies rash Neurologic Neurologic: Denies headache(s) Psychiatric Psychiatric: Reports anxiety Hematologic/Lymphatic Hematologic/Lymphatic: Denies easy bleeding or easy bruising EXAM Physical Exam Const Vital Signs: 06/09/25 05:00 06/09/25 05:41 Temperature 98 F Pulse Rate 81 61 Respiratory Rate 16 16 Blood Pressure 112/65 131/68 H Blood Pressure Mean 80 89 Pulse Ox 99 98 Oxygen Delivery Method Room Air Positive well nourished and well developed General Appearance ED: well developed; Negative for pallor HEENT Reports moist mucous membranes HEENT Narrative: Normocephalic atraumatic No tongue or lip swelling no oral lesions no airway edema or compromise; no secondary findings in the posterior pharynx to suggest infection Eye (more content not included)... [facility] 06-09-2025 Lipase [Catalytic activity/Vol] 42 U/L Normal 13-75 [facility] Comment on above: Result Comment: Rashaun rodriguez note: LIPASE revised reference range effective 22. New Lipase methodology. Expected to produce lower values than the previous assay method. NEW Reference Range: 13 - 75 U/L Performed By: #### B TS, L509.4006, L3890.6102, L900.0098, L3890.6006, L100.0100, L509.8002, L3890.6301 #### [facility] [address] [place], [address] ,Serum,hCG Quali.on 06-09-2025 HCG, SERUM QUAL Negative Normal [facility] Comment on above: Performed By: #### B TS, L509.4006, L3890.6102, L900.0098, L3890.6006, L100.0100, L509.8002, L3890.6301 #### [facility] [address] [place], [address] Urine Cultureon 06-05-2025 URC Klebsiella pneumonia e sp pneum [place] Count 11,000-25,000 Klebsiella pneumoniae sp pneum: REACTION Ampicillin Islt [...] TMP SMX Islt ROMI <=20 S Normal [facility] Comment on above: Performed By: #### B TS, L509.4006, L3890.6102, L900.0098, L3890.6006, L100.0100, L509.8002, L3890.6301 #### [facility] [address] [facility], [address] Emergency Department Summary on 06-03-2025 Emergency Department Summary [facility] Medical Records Department [address] [place] [address] Emergency Department Summary 06/03/25 MR#: [id number] Acct: [id number] Name: GLORIA NETTLES TOBIAS Rep #: [id number] : 2000 24 From: Tyler Castillo DO PCP: Dr. Wilfred Egan DO Status:REG ER Location: ED HPI History of Present Illness Chief Complaint: Nausea/Vomiting/Diarrhea Narrative Narrative: Patient is a 24-year-old female with past medical history of anxiety, depression, panic disorder, marijuana use who presents to the emergency department chief complaint of nausea and vomiting. Patient is currently 10 weeks she states that this is her first . States that she threw up a couple times yesterday and then threw up twice this morning which caused her to panic and come to the emergency department to be evaluated. States that she is following with [facility] RN. Patient denies any recent sick contacts. She states that she has had EGD and colonoscopy in the past because she had multiple episodes of vomiting and they are trying to figure out why. She states that she was told that there is something with her small intestine related the colonoscopy but she does not rated member the exact details of this. [facility] Medical History Marijuana use Panic disorder [...] and Unknown Rx tablet vomiting #20 tabs cephalexin 500 mg capsule 500 mg PO BID #10 caps 06/03/25 Un known Rx Allergy/AdvReac Type Severity Reaction Status Date / Time No Known Allergies Allergy Verified 06/03/25 04:46 Family History Mother Thyroid disorder Father Asthma COPD (chronic obstructive pulmonary disease) Grandmother Cardiac pacemaker Surgical History Hx of colonoscopy History of esophagogastroduodenoscopy (EGD) Social History adopted: No household members: other details: Mom step dad number of children: 0 current occupational status: employed current occupation: [employer] current occupational exposures/hazards: No pets and animals: [...] times per week duration: < 15 minutes/day dustin/yazidi: None seatbelt use: always do you feel safe at home: Yes additional social history: BF: [employer] 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 @ [employer] ROS ROS ED ROS Narrative Constitutional: Denies any fevers or chills Eyes: Denies double vision Cardiovascular: Denies chest pain Respiratory: Shortness of breath Abdomen: Complains of nausea vomiting as noted above denies abdominal pain : Denies urinary symptoms denies any vaginal spotting or bleeding Neurological: Denies any numbness, weakness, tingling Musculoskeletal: Denies back pain Skin: Denies any rashes or lesions EXAM Physical Exam Narrative Exam Narrative: General: Patient is lying in bed rest comfortably do not appear to be in acute distress Head: Atraumatic, normocephalic Eyes: PERRL bilaterally, EOMI bilaterally, no conjunctival injection noted Neck: Soft, supple, trachea midline Cardiovascular: Regular rate and rhythm Abdomen: Soft, nondistended, no tenderness to palpation Extremities: +5/5 strength noted in the bilateral lower extremities Neurological: Patient follow commands knew that she was at [facility] years 2024 Skin: Warm, dry, intact no rashes or lesions noted Const Vital Signs: 06/03/25 04:43 Temperature 98.1 F Temperature Source Oral Pulse Rate 72 Respiratory Rate 18 Blood Pressure 142/84 H Blood Pressure Mean 103 Pulse Ox 100 Oxyg (more content not included)... [facility] Urinalysis, Completeon 06-03 BACTERIA 3+ /hpf Normal None Seen [facility] Comment on above: Order Comment: CLEAN CATCH Performed By: #### L 500.2500, L100.0100 #### [facility] [address] [place], [address] EPI,SQUAMOUS 50-100 SEEN Normal -10 [facility] Comment on above: Order Comment: CLEAN CATCH Performed By: #### L 500.2500, L100.0100 #### [facility] [address] [place], [address] WBC 0-5 SEEN Normal 0-5 [facility] Comment on above: Order Comment: CLEAN CATCH Performed By: #### L 500.2500, L100.0100 #### [facility] [address] [place], [address] Mucus Ql (Urine sed) 0 SEEN Normal [facility] Comment on above: Order Comment: CLEAN CATCH Performed By: #### L 500.2500, L100.0100 #### [facility] [address] [place], [address] RBC 0 SEEN Normal 0-5 [facility] Comment on above: Order Comment: CLEAN CATCH Performed By: #### L 500.2500, L100.0100 #### [facility] [address] [place], [address] PAP I-G w/rfx hrHPV-Aptimaon 05-26-2025 ADEQ Comment Normal . [facility] Comment on above: Order Comment: Speci men Comment: [id number] Comment: Source.............CervixSpecimen Comment: No. of containers..01 ThinPrep Vial Result Comment: Sati sfactory for evaluation. Endocervical and/or squamous metaplastic cells (endocervical component) are present. Performed By: #### L 500.2500, L100.0100 #### [facility] [address] [place], [address] COMM . Normal . [facility] Comment on above: Order Comment: Speci men Comment: [id number] Comment: Source.............CervixSpecimen Comment: No. of containers..01 ThinPrep Vial Performed By: #### L 500.2500, L100.0100 #### [facility] [address] [place], [address] COMMENT Comment Normal . [facility] Comment on above: Order Comment: Speci men Comment: [id number] Comment: Source.............CervixSpecimen Comment: No. of containers..01 ThinPrep Vial Result Comment: This liquid based ThinPrep(R) pap test was interpreted using the DataPop(R) Genius(TM) Cervical Algorithm whole slide imaging system. Performed By: #### L 500.2500, L100.0100 #### [facility] [address] [place], [place], [address] DIAG Comment Normal . [facility] Comment on above: Order Comment: Speci men Comment: [id number] Comment: Source.............CervixSpecimen Comment: No. of containers..01 ThinPrep Vial Result Comment: NEGA TIVE FOR INTRAEPITHELIAL LESION OR MALIGNANCY. Performed By: #### L 500.2500, L100.0100 #### [facility] [address] [place], [place], [address] HPV RFLX Comment Normal . [facility] Comment on above: Order Comment: Speci men Comment: [id number] Comment: Source.............CervixSpecimen Comment: No. of containers..01 ThinPrep Vial Result Comment: The HPV DNA reflex criteria were not met with this specimen result therefore, no HPV testing was performed. Performed at: [address] [id number] Dictaphone Mechanic: Carlie Larson MD, Phone: [phone] Performed By: #### L 500.2499, L100.0100 #### [facility] [address] [place], [place], [address] PAPSMR Comment Normal . [facility] Comment on above: Order Comment: Speci men Comment: [id number] Comment: Source.............CervixSpecimen Comment: No. of containers..01 ThinPrep Vial Result Comment: The Pap smear is a screening test designed to aid in the detection of premalignant and malignant conditions of the uterine cervix. It is not a diagnostic procedure and should not be used as the sole means of detecting cervical cancer. Both false-positive and false-negative reports do occur. Performed By: #### L 500.2500, L100.0100 #### [facility] [address] [place], [address] PERFORM Comment Normal . [facility] Comment on above: Order Comment: Speci men Comment: [id number] Comment: Source.............CervixSpecimen Comment: No. of containers..01 ThinPrep Vial Result Comment: Kody Johnson, Biomedical Engineering Professor (ASCP) Performed By: #### L 500.2500, L100.0100 #### [facility] [address] [place], [address] Chlamydia/GC OLIVIA aptimaon CHLAMY,NUC ACID Negative Normal Negative [facility] Comment on above: Performed By: #### L 500.2500, L100.0100 #### [facility] [address] [place], [address] GC BY NUC ACID Negative Normal Negative [facility] Comment on above: Result Comment: Perf ormed at: =[facility] [id number] Dictaphone Mechanic: Carlie Larson MD, Phone: [phone] Performed By: #### L 500.2500, L100.0100 #### [facility] [address] [place], [address] Urine Cultureon 05-23-2025 URC Klebsiella pneumonia e sp pneum [place] Count >100,000 Klebsiella pneumoniae sp pneum: REACTION [...] TMP SMX Islt ROMI <=20 S Normal [facility] Comment on above: Performed By: #### L 500.2500, L100.0100 #### [facility] [address] [place], [address] Canopy Stringer Office Visit Reporton 05-21-2025 Canopy Stringer Office Visit Report [facility] [address], [address] [place] [address] OFFICE VISIT Date of Service: 05/21/25 MR#: [id number] Acct: [id number] Name: GLORIA NETTLES TOBIAS Rep #: [id number] : 2000 Provider: MARYLIN Crum ams Age/Sex: 24/F Location: [facility] [place] Status: Signed Intake Vital Signs 10/20/24 01:49 05/13/25 10:05 05/21/25 11:23 Height 5 ft 2 in 5 ft 3 in 5 ft 3 in Weight: 110 lb BMI 19.5 BP 120/79 Intake Visit Reasons: *NEW* NOB LMP 03/25, 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??- Effaced St Visit Note 05/21/25 -???-???-???-???-???-???-???- ???-???-???-???-???- 8w 1d 110 lb (+0 oz) 120/79 -???-???-???-???-???-???-???- ???-???-???-???-???- 148 -???-???-???-???-???-???-???- ???-???-???-???-???- KW CRL 1.33 and cons with dates. unsure if she would like genetics. FOB not involved currently and she is feeling uncertain about the . It was not planned and does not know if she can handle p (more content not included)... [facility] Urine Drug Screen (VISTA)on 05-21-2025 AMPHETAMINES Negative Normal <1000 ng/mL [facility] Comment on above: Order Comment: UNK Performed By: #### L 500.2500, L100.0100 #### [facility] [address] [place], [address] BARBITIURATES Negative Normal < 200 ng/mL [facility] Comment on above: Order Comment: UNK Performed By: #### L 500.2500, L100.0100 #### [facility] [address] [place], [address] BENZODIAZIPINE Negative Normal < 200 ng/mL [facility] Comment on above: Order Comment: UNK Performed By: #### L 500.2500, L100.0100 #### [facility] [address] [place], [address] BUP Ur Drug Scr Negative Normal < 200 ng/mL [facility] Comment on above: Order Comment: UNK Performed By: #### L 500.2500, L100.0100 #### [facility] [address] [place], [address] COCAINE Negative Normal < 300 ng/mL [facility] Comment on above: Order Comment: UNK Performed By: #### L 500.2500, L100.0100 #### [facility] [address] [place], [address] Fentanyl Negative Normal <5 ng/mL [facility] Comment on above: Order Comment: UNK Result [...] mnemonic: UTCA Performed By: #### L 500.2500, L100.0100 #### [facility] [address] [place], [address] METHADONE Negative Normal < 300 ng/mL [facility] Comment on above: Order Comment: UNK Performed By: #### L 500.2500, L100.0100 #### [facility] [address] [place], [address] OPIATES Negative Normal < 300 ng/mL [facility] Comment on above: Order Comment: UNK Performed By: #### L 500.2500, L100.0100 #### [facility] [address] [place], [address] OXYCODONE Negative Normal < 100 ng/mL [facility] Comment on above: Order Comment: UNK Performed By: #### L 500.2500, L100.0100 #### [facility] [address] [place], [address] PCP Negative Normal < 25 ng/mL [facility] Comment on above: Order Comment: UNK Performed By: #### L 500.2500, L100.0100 #### [facility] [address] [place], [address] THC Positive Normal < 50 ng/mL [facility] Comment on above: Order Comment: UNK Result Comment: If c onfirmation testing is needed, a separate order will be required to send out testing to the reference laboratory. Performed By: #### L 500.2500, L100.0100 #### [facility] [address] [place], [address] [id number] 05-13-2025 ABO and Rh group Nom (Bld) Blood group A Rh(D) positive Normal [facility] Comment on above: Performed By: #### B TS, L509.4006, L3890.6102, L900.0098, L3890.6006, L100.0100, L509.8002, L3890.6301 #### [facility] [address] [place], [address] CBC W/Diff, Automatedon 09-2 -2024 Absolute Lymph 0.56 X10 3/uL Low 0.83-4.51 [facility] Comment on above: Performed By: #### L 500.2500, L100.0100 #### [facility] [address] [place], [address] Absolute Neut 13.3 X10 3/uL High 2.0-7.7 [facility] Comment on above: Performed By: #### L 500.2500, L100.0100 #### [facility] [address] [place], [address] Basophils/100 WBC (Bld) 0.1 % Normal 0-1 [facility] Comment on above: Performed By: #### L 500.2500, L100.0100 #### [facility] [address] [place], [address] Eosinophils/100 WBC (Bld) 0.0 % Normal 0-5 [facility] Comment on above: Performed By: #### L 500.2500, L100.0100 #### [facility] [address] [place], [address] Erythrocyte distribution width (RBC) [Ratio] 12.1 % Normal 11.6-14.6 [facility] Comment on above: Performed By: #### L 500.2500, L100.0100 #### [facility] [address] [place], [address] Hematocrit (Bld) [Volume fraction] 35.4 % Low 37-47 [facility] Comment on above: Performed By: #### L 500.2500, L100.0100 #### [facility] [address] [place], [address] Hemoglobin (Bld) [Mass/Vol] 13.2 g/dL Normal 12.0-15.0 [facility] Comment on above: Performed By: #### L 500.2500, L100.0100 #### [facility] [address] [place], [address] IG% 0.400 Normal 0.0-0.9 [facility] Comment on above: Result Comment: IG% - Immature Granulocytes (promyelocytes, myelocytes and metamyelocytes) > 1% indicates that a LEFT SHIFT is Present. Performed By: #### L 500.2500, L100.0100 #### [facility] [address] [place], [address] Lymphocytes/100 WBC (Bld) 4.0 % Low 19-41 [facility] Comment on above: Performed By: #### L 500.2500, L100.0100 #### [facility] [address] [place], [address] MCH (RBC) [Entitic mass] 32.6 pg High 27.0-32.0 [facility] Comment on above: Performed By: #### L 500.2500, L100.0100 #### [facility] [address] [place], [address] MCHC (RBC) [Mass/Vol] 37.3 g/dL High 32-36 [facility] Comment on above: Performed By: #### L 500.2500, L100.0100 #### [facility] [address] [place], [address] MCV (RBC) [Entitic vol] 87.4 fL Normal 81-99 [facility] Comment on above: Performed By: #### L 500.2500, L100.0100 #### [facility] [address] [place], [address] Monocytes/100 WBC (Bld) 1.1 % Normal 0-10 [facility] Comment on above: Performed By: #### L 500.2500, L100.0100 #### [facility] [address] [place], [address] Neutrophils/100 WBC (Bld) 94.4 % High 47-70 [facility] Comment on above: Performed By: #### L 500.2500, L100.0100 #### [facility] [address] [place], [address] Nucleated RBC (Bld) [#/Vol] 0 10*3/uL Normal 0-5 [facility] Comment on above: Performed By: #### L 500.2500, L100.0100 #### [facility] [address] [place], [address] Platelet mean volume (Bld) [Entitic vol] 9.7 fL Normal 6.2-12.0 [facility] Comment on above: Performed By: #### L 500.2500, L100.0100 #### [facility] [address] [place], [address] Platelets (Bld) [#/Vol] 315 10*3/uL Normal 150-450 [facility] Comment on above: Performed By: #### L 500.2500, L100.0100 #### [facility] [address] [place], [address] RBC (Bld) [#/Vol] 4.05 10*6/uL Low 4.2-5.4 [facility] Comment on above: Performed By: #### L 500.2500, L100.0100 #### [facility] [address] [place], [address] RDW SD 38.6 fl Normal 35.1-43.9 [facility] Comment on above: Performed By: #### L 500.2500, L100.0100 #### [facility] [address] [place], [address] WBC (Bld) [#/Vol] 14.1 10*3/uL High 4.4-11.0 [facility] Comment on above: Performed By: #### L 500.2500, L100.0100 #### [facility] [address] [place], [address] Comprehensive Metabolic Prof ilon 05-13-2025 Albumin [Mass/Vol] 4.7 g/dL Normal 3.5-5.0 [facility] Comment on above: Performed By: #### L 500.2500, L100.0100 #### [facility] [address] [place], [address] Albumin/Globulin [Mass ratio] 1.8 {ratio} Normal 0.9-2.4 [facility] Comment on above: Performed By: #### L 500.2500, L100.0100 #### [facility] [address] [place], [address] ALK PHOS 80 U/L Normal 35-104 [facility] Comment on above: Performed By: #### L 500.2500, L100.0100 #### [facility] [address] [place], [address] ALT [Catalytic activity/Vol] 12 U/L Normal <=34 [facility] Comment on above: Performed By: #### L 500.2500, L100.0100 #### [facility] [address] [place], [address] AST [Catalytic activity/Vol] 19 U/L Normal <=31 [facility] Comment on above: Performed By: #### L 500.2500, L100.0100 #### [facility] [address] [place], [address] Bilirubin [Mass/Vol] 0.71 mg/dL Normal 0.00-1.30 [facility] Comment on above: Performed By: #### L 500.2500, L100.0100 #### [facility] [address] [place], [address] BUN/CRE 14.3 RATIO Normal 10-20 [facility] Comment on above: Performed By: #### L 500.2500, L100.0100 #### [facility] [address] [place], [address] Calcium [Mass/Vol] 9.4 mg/dL Normal 7.6-11.0 [facility] Comment on above: Performed By: #### L 500.2500, L100.0100 #### [facility] [address] [place], [address] Chloride [Moles/Vol] 106 mmol/L Normal 98-108 [facility] Comment on above: Performed By: #### L 500.2500, L100.0100 #### [facility] [address] [place], [address] CO2 [Moles/Vol] 18.0 mmol/L Low 21.0-32.0 [facility] Comment on above: Performed By: #### L 500.2500, L100.0100 #### [facility] [address] [place], [address] Creatinine [Mass/Vol] 0.63 mg/dL Low 0.70-1.20 [facility] Comment on above: Performed By: #### L 500.2500, L100.0100 #### [facility] [address] [place], [address] ECRCL 108.97 ml/min Normal 50-250 [facility] Comment on above: Performed By: #### L 500.2500, L100.0100 #### [facility] [address] [place], [address] GAP 15 Normal 5-15 [facility] Comment on above: Performed By: #### L 500.2500, L100.0100 #### [facility] [address] [place], [address] GFR/1.73 sq M.predicted among non-blacks MDRD (S/P/Bld) [Vol rate/Area] 128 mL/min/{1.73_m2} Normal >60 [facility] Comment on above: Result Comment: mL/m in/1.73m2 CKD-EPI Creatinine Equation (2020) Performed By: #### L 500.2500, L100.0100 #### [facility] [address] [place], [address] Globulin (S) [Mass/Vol] 2.6 g/dL Normal 2.2-4.2 [facility] Comment on above: Performed By: #### L 500.2500, L100.0100 #### [facility] [address] [place], [address] Glucose [Mass/Vol] 117 mg/dL High 70-99 [facility] Comment on above: Performed By: #### L 500.2500, L100.0100 #### [facility] [address] [place], [address] Potassium [Moles/Vol] 3.5 mmol/L Normal 3.3-5.1 [facility] Comment on above: Performed By: #### L 500.2500, L100.0100 #### [facility] [address] [place], [address] Sodium [Moles/Vol] 139 mmol/L Normal 133-145 [facility] Comment on above: Performed By: #### L 500.2500, L100.0100 #### [facility] [address] [place], [address] T PROT 7.3 g/dL Normal 5.9-8.4 [facility] Comment on above: Performed By: #### L 500.2500, L100.0100 #### [facility] [address] [place], [address] Urea nitrogen [Mass/Vol] 9 mg/dL Normal 4-19 [facility] Comment on above: Performed By: #### L 500.2500, L100.0100 #### [facility] [address] [place], [address] Emergency Department Summary on 05-13-2025 Emergency Department Summary [facility] Medical Records Department [address] [place] [address] Emergency Department Summary 05/13/25 MR#: [id number] Acct: [id number] Name: GLORIA NETTLES TOBIAS Rep #: [id number] : 2000 24 From: Fay De Los [...] trimester. Has an appointment to see her CONSULTANT RN and confirm next week through [facility]. Notes that she is going to multiple stressors including relationships with the father, home life issues and she just told her mother about the today. No fever or chills reported but has had some sweating. No blood in vomit or stool appreciated. No other complaints or concerns at this time [facility] Medical History Marijuana use Panic disorder [...] 0 current occupational status: employed current occupation: [employer] current occupational exposures/hazards: No pets and animals: [...] times per week duration: < 15 minutes/day udstin/yazidi: None seatbelt use: always do you feel safe at home: Yes additional social history: BF: Dav - Cannoneer @ [employer] ROS ROS ED Constitutional Constitutional ED: Denies [...] Eyes PERRL (more content not included)... [facility] Lipaseon 05-13-2025 Lipase [Catalytic activity/Vol] 23 U/L Normal 13-75 [facility] Comment on above: Result Comment: Rashaun rodriguez note: LIPASE revised reference range effective 22. New Lipase methodology. Expected to produce lower values than the previous assay method. NEW Reference Range: 13 - 75 U/L Performed By: #### L 500.2500, L100.0100 #### [facility] [address] [place], [address] Urinalysis, Completeon 05-13 EPI,SQUAMOUS 0-5 SEEN Normal 5-10 [facility] Comment on above: Order Comment: CLEAN CATCH Performed By: #### L 500.2500, L100.0100 #### [facility] [address] [place], [address] BACTERIA 1+ /hpf Normal None Seen [facility] Comment on above: Order Comment: CLEAN CATCH Performed By: #### L 500.2500, L100.0100 #### [facility] [address] [place], [address] Mucus Ql (Urine sed) 1+ /hpf Normal [facility] Comment on above: Order Comment: CLEAN CATCH Performed By: #### L 500.2500, L100.0100 #### [facility] [address] [place], [address] RBC 0 SEEN Normal 0-5 [facility] Comment on above: Order Comment: CLEAN CATCH Performed By: #### L 500.2500, L100.0100 #### [facility] [address] [place], [address] WBC 0 SEEN Normal 0-5 [facility] Comment on above: Order Comment: CLEAN CATCH Performed By: #### L 500.2500, L100.0100 #### [facility] [address] [place], [address] Basic Metabolic Profile (BMP )on 05-12-2025 BUN/CRE 16.0 RATIO Normal 10-20 [facility] Comment on above: Performed By: #### B TS, L509.4006, L3890.6102, L900.0098, L3890.6006, L100.0100, L509.8002, L3890.6301 #### [facility] [address] [place], [address] Calcium [Mass/Vol] 8.8 mg/dL Normal 7.6-11.0 [facility] Comment on above: Performed By: #### B TS, L509.4006, L3890.6102, L900.0098, L3890.6006, L100.0100, L509.8002, L3890.6301 #### [facility] [address] [place], [address] Chloride [Moles/Vol] 106 mmol/L Normal 98-108 [facility] Comment on above: Performed By: #### B TS, L509.4006, L3890.6102, L900.0098, L3890.6006, L100.0100, L509.8002, L3890.6301 #### [facility] [address] [place], [address] CO2 [Moles/Vol] 19.8 mmol/L Low 21.0-32.0 [facility] Comment on above: Performed By: #### B TS, L509.4006, L3890.6102, L900.0098, L3890.6006, L100.0100, L509.8002, L3890.6301 #### [facility] [address] [place], [address] Creatinine [Mass/Vol] 0.59 mg/dL Low 0.70-1.20 [facility] Comment on above: Performed By: #### B TS, L509.4006, L3890.6102, L900.0098, L3890.6006, L100.0100, L509.8002, L3890.6301 #### [facility] [address] [place], [place], [address] ECRCL 117.29 ml/min Normal 50-250 [facility] Comment on above: Performed By: #### B TS, L509.4006, L3890.6102, L900.0098, L3890.6006, L100.0100, L509.8002, L3890.6301 #### [facility] [address] [place], [address] GAP 12 Normal 5-15 [facility] Comment on above: Performed By: #### B TS, L509.4006, L3890.6102, L900.0098, L3890.6006, L100.0100, L509.8002, L3890.6301 #### [facility] [address] [place], [address] GFR/1.73 sq M.predicted among non-blacks MDRD (S/P/Bld) [Vol rate/Area] 130 mL/min/{1.73_m2} Normal >60 [facility] Comment on above: Result Comment: mL/m in/1.73m2 CKD-EPI Creatinine Equation (2020) Performed By: #### B TS, L509.4006, L3890.6102, L900.0098, L3890.6006, L100.0100, L509.8002, L3890.6301 #### [facility] [address] [place], [address] Glucose [Mass/Vol] 92 mg/dL Normal 70-99 [facility] Comment on above: Performed By: #### B TS, L509.4006, L3890.6102, L900.0098, L3890.6006, L100.0100, L509.8002, L3890.6301 #### [facility] [address] [place], [address] Potassium [Moles/Vol] 3.3 mmol/L Normal 3.3-5.1 [facility] Comment on above: Performed By: #### B TS, L509.4006, L3890.6102, L900.0098, L3890.6006, L100.0100, L509.8002, L3890.6301 #### [facility] [address] [place], [address] Sodium [Moles/Vol] 138 mmol/L Normal 133-145 [facility] Comment on above: Performed By: #### B TS, L509.4006, L3890.6102, L900.0098, L3890.6006, L100.0100, L509.8002, L3890.6301 #### [facility] [address] [place], [address] Urea nitrogen [Mass/Vol] 10 mg/dL Normal 4-19 [facility] Comment on above: Performed By: #### B TS, L509.4006, L3890.6102, L900.0098, L3890.6006, L100.0100, L509.8002, L3890.6301 #### [facility] [address] [place], [address] CBC W/Diff, Automatedon 09-2 -2024 Absolute Lymph 1.38 X10 3/uL Normal 0.83-4.51 [facility] Comment on above: Performed By: #### B TS, L509.4006, L3890.6102, L900.0098, L3890.6006, L100.0100, L509.8002, L3890.6301 #### [facility] [address] [place], [address] Absolute Neut 7.5 X10 3/uL Normal 2.0-7.7 [facility] Comment on above: Performed By: #### B TS, L509.4006, L3890.6102, L900.0098, L3890.6006, L100.0100, L509.8002, L3890.6301 #### [facility] [address] [place], [address] Basophils/100 WBC (Bld) 0.3 % Normal 0-1 [facility] Comment on above: Performed By: #### B TS, L509.4006, L3890.6102, L900.0098, L3890.6006, L100.0100, L509.8002, L3890.6301 #### [facility] [address] [place], [address] Eosinophils/100 WBC (Bld) 0.8 % Normal 0-5 [facility] Comment on above: Performed By: #### B TS, L509.4006, L3890.6102, L900.0098, L3890.6006, L100.0100, L509.8002, L3890.6301 #### [facility] [address] [place], [address] Erythrocyte distribution width (RBC) [Ratio] 12.1 % Normal 11.6-14.6 [facility] Comment on above: Performed By: #### B TS, L509.4006, L3890.6102, L900.0098, L3890.6006, L100.0100, L509.8002, L3890.6301 #### [facility] [address] [place], [address] Hematocrit (Bld) [Volume fraction] 35.2 % Low 37-47 [facility] Comment on above: Performed By: #### B TS, L509.4006, L3890.6102, L900.0098, L3890.6006, L100.0100, L509.8002, L3890.6301 #### [facility] [address] [facility] [place], [address] Hemoglobin (Bld) [Mass/Vol] 12.8 g/dL Normal 12.0-15.0 [facility] Comment on above: Performed By: #### B TS, L509.4006, L3890.6102, L900.0098, L3890.6006, L100.0100, L509.8002, L3890.6301 #### [facility] [address] [facility] [place], [address] IG% 0.300 Normal 0.0-0.9 [facility] Comment on above: Result Comment: IG% - Immature Granulocytes (promyelocytes, myelocytes and metamyelocytes) > 1% indicates that a LEFT SHIFT is Present. Performed By: #### B TS, L509.4006, L3890.6102, L900.0098, L3890.6006, L100.0100, L509.8002, L3890.6301 #### [facility] [address] [place], [address] Lymphocytes/100 WBC (Bld) 14.5 % Low 19-41 [facility] Comment on above: Performed By: #### B TS, L509.4006, L3890.6102, L900.0098, L3890.6006, L100.0100, L509.8002, L3890.6301 #### [facility] [address] [place], [address] MCH (RBC) [Entitic mass] 32.1 pg High 27.0-32.0 [facility] Comment on above: Performed By: #### B TS, L509.4006, L3890.6102, L900.0098, L3890.6006, L100.0100, L509.8002, L3890.6301 #### [facility] [address] [place], [address] MCHC (RBC) [Mass/Vol] 36.4 g/dL High 32-36 [facility] Comment on above: Performed By: #### B TS, L509.4006, L3890.6102, L900.0098, L3890.6006, L100.0100, L509.8002, L3890.6301 #### [facility] [address] [place], [address] MCV (RBC) [Entitic vol] 88.2 fL Normal 81-99 [facility] Comment on above: Performed By: #### B TS, L509.4006, L3890.6102, L900.0098, L3890.6006, L100.0100, L509.8002, L3890.6301 #### [facility] [address] [place], [address] Monocytes/100 WBC (Bld) 5.4 % Normal 0-10 [facility] Comment on above: Performed By: #### B TS, L509.4006, L3890.6102, L900.0098, L3890.6006, L100.0100, L509.8002, L3890.6301 #### [facility] [address] [place], [address] Neutrophils/100 WBC (Bld) 78.7 % High 47-70 [facility] Comment on above: Performed By: #### B TS, L509.4006, L3890.6102, L900.0098, L3890.6006, L100.0100, L509.8002, L3890.6301 #### [facility] [address] [place], [address] Nucleated RBC (Bld) [#/Vol] 0 10*3/uL Normal 0-5 [facility] Comment on above: Performed By: #### B TS, L509.4006, L3890.6102, L900.0098, L3890.6006, L100.0100, L509.8002, L3890.6301 #### [facility] [address] [place], [address] Platelet mean volume (Bld) [Entitic vol] 9.6 fL Normal 6.2-12.0 [facility] Comment on above: Performed By: #### B TS, L509.4006, L3890.6102, L900.0098, L3890.6006, L100.0100, L509.8002, L3890.6301 #### [facility] [address] [place], [address] Platelets (Bld) [#/Vol] 268 10*3/uL Normal 150-450 [facility] Comment on above: Performed By: #### B TS, L509.4006, L3890.6102, L900.0098, L3890.6006, L100.0100, L509.8002, L3890.6301 #### [facility] [address] [place], [address] RBC (Bld) [#/Vol] 3.99 10*6/uL Low 4.2-5.4 [facility] Comment on above: Performed By: #### B TS, L509.4006, L3890.6102, L900.0098, L3890.6006, L100.0100, L509.8002, L3890.6301 #### [facility] [address] [place], [address] RDW SD 39.4 fl Normal 35.1-43.9 [facility] Comment on above: Performed By: #### B TS, L509.4006, L3890.6102, L900.0098, L3890.6006, L100.0100, L509.8002, L3890.6301 #### [facility] [address] [place], [address] WBC (Bld) [#/Vol] 9.6 10*3/uL Normal 4.4-11.0 [facility] Comment on above: Performed By: #### B TS, L509.4006, L3890.6102, L900.0098, L3890.6006, L100.0100, L509.8002, L3890.6301 #### [facility] [address] [place], [place], [id number] Emergency Department Summary on 05-12-2025 Emergency Department Summary [facility] Medical Records Department [address] [place] [address] Emergency Department Summary 05/12/25 MR#: [id number] Acct: [id number] Name: GLORIA NETTLES TOBIAS Rep #: [id number] : 2000 24 From: Zafar Marrero DO [...] Patient denies any suicidal or homicidal ideations. [facility] Medical History Marijuana use Panic disorder [...] 0 current occupational status: employed current occupation: [employer] current occupational exposures/hazards: No pets and animals: [...] times per week duration: < 15 minutes/day dustin/yazidi: None seatbelt use: always do you feel safe at home: Yes additional social history: BF: Dav - Cannoneer @ [employer] ROS ROS ED Constitutional Constitutional ED: Reports [...] / Orientation: (more content not included)... [facility] Urinalysis, Completeon 05-12 BACTERIA 2+ /hpf Normal None Seen [facility] Comment on above: Order Comment: CLEAN CATCH Performed By: #### L 500.2500, L100.0100 #### [facility] [address] [place], [place], [id number] EPI,SQUAMOUS 0-5 SEEN Normal 5-10 [facility] Comment on above: Order Comment: CLEAN CATCH Performed By: #### L 500.2500, L100.0100 #### [facility] [address] [place], [address] Mucus Ql (Urine sed) 0 SEEN Normal [facility] Comment on above: Order Comment: CLEAN CATCH Performed By: #### L 500.2500, L100.0100 #### [facility] [address] [place], [address] RBC 0 SEEN Normal 0-5 [facility] Comment on above: Order Comment: CLEAN CATCH Performed By: #### L 500.2500, L100.0100 #### [facility] [address] [place], [address] WBC 0 SEEN Normal 0-5 [facility] Comment on above: Order Comment: CLEAN CATCH Performed By: #### L 500.2500, L100.0100 #### [facility] [address] [place], [address] hCG Titer Quant., Serumon HCG QUANT. 27239 mIU/mL High <9 non-preg [facility] Comment on above: Result Comment: Gest ational Age 0.2-1 Week: 5-50 mIU/mL 1-2 Weeks: 50-500 mIU/mL 2-3 Weeks: 100-5000 mIU/mL 3-4 Weeks: 500-10,000 mIU/mL 4-5 Weeks:1000-50,000 mIU/mL 5-6 Weeks: 10,000-100,000 mIU/mL 6-8 Weeks: 15,000-200,000 mIU/mL 2-3 Months:10,000-100,000 mIU/mL Performed By: #### B TS, L509.4006, L3890.6102, L900.0098, L3890.6006, L100.0100, L509.8002, L3890.6301 #### [facility] [address] [place], [address] Office Visit Reporton 2024 Office Visit Report [facility] [address] [place] [address] OFFICE VISIT Date of Service: 05/04/25 MR#: [id number] Acct: [id number] Patient: GLORIA NETTLES Rep #: [id number] : 2000 Provider: MARYLIN Crum ams Age/Sex: 24/F Location: [facility] [place] Status: Signed reviewed Intake Vital Signs [...] Cosigner Signature: Date (if applicable) CC: [facility] BACTERIAL VAGINOSIS NAATon 0 02-02-2025 Lactobacillus crispatus+gasseri +jensenii + Gardnerella vaginalis + Atopobium vaginae rRNA OLIVIA+probe Ql (Vag fld) Detected Abnormal Not detected [facility] Comment on above: Order Comment: Speci men Type: SWAB Ordering Facility: [facility] Address: [address] [place] [address] Performed By: #### 3 6902-5, BVAMP #### [facility] CLIA [id number] [address] [place] [address] [place] Bacteria Ur Culton [...] llection technique or straight catheterization for???urine???collection. Normal [facility] Comment on above: Performed By: #### 6 30-4 #### [facility] CLIA [id number] [address] [place] [address] [place] C. trachomatis+N. gonorrhoea e DNA OLIVIA+probe Ql (Unsp spec)on 02-02-2025 C. trachomatis rRNA OLIVIA+probe Ql (Unsp spec) Not detected Normal Not detected [facility] Comment on above: Order Comment: Speci men Type: SWAB Ordering Facility: [facility] Address: [address] [place] [address] Performed By: #### 3 6902-5, BVAMP #### [facility] CLIA [id number] [address] [place] [address] [place] N. gonorrhoeae rRNA OLIVIA+probe Ql (Unsp spec) Not detected Normal Not detected [facility] Comment on above: Order Comment: Speci men Type: SWAB Ordering Facility: [facility] Address: [address] [place] [address] Performed By: #### 3 6902-5, BVAMP #### [facility] CLIA [id number] [address] [place] [address] [place] ADELITA/TRICHOMONAS NAATon 0 02-02-2025 C. glabrata RNA OLIVIA+probe Ql (Vag fld) Not detected Normal Not detected [facility] Comment on above: Order Comment: Speci men Type: SWAB Ordering Facility: [facility] Address: [address] [place] [address] Performed By: #### C VTV #### [facility] CLIA [id number] [address] [place] [address] [place] Adelita sp DNA OLIVIA+probe Ql (Vag fld) Detected Abnormal Not detected [facility] Comment on above: Order Comment: Speci men Type: SWAB Ordering Facility: [facility] Address: [address] [place] [address] Result Comment: The Adelita species group target includes C. albicans, C. tropicalis, C. parapsilosis, and C. dubliniensis. Performed By: #### C VTV #### [facility] CLIA [id number] [address] [place] [address] [place] T. vaginalis DNA LOIVIA+probe Ql (Unsp spec) Not detected Normal Not detected [facility] Comment on above: Order Comment: Speci men Type: SWAB Ordering Facility: [facility] Address: [address] [place] [address] Performed By: #### C VTV #### [facility] CLIA [id number] [address] [place] [address] [place] CNOVon 02-02-2025 CNOV Office Visit (UCWSTR ) GLORIA NETTLES ([id number]) 2 F Date Time Provider Department 02/02/25 8:45 AM NATALI ZEPEDA [facility] During your visit today, we recorded the following information about you: Temperature Pulse Respiration Blood pressure 97.1 degrees 78/minute 16/minute 108/62 Weight 52.7 kg Natali Zepeda APRN.[employer] 02/02/2025 9:20 AM Signed [facility] Subjective Gloria Nettles is a 24 year old female. Patient presents with: Hematuria: x 2 days Hematuria Vaginal Soreness and Discharge: - Onset: 4 days ago. - Describes soreness in the vaginal area, particularly when wiping. just feels sore down there - Noticed a "pink" or slightly bloody appearance on toilet paper [...] plan 11/24/2020 placed on care plan by [facility] for excessive visits PAST SURGICAL [...] deficit. Motor: (more content not included)... Normal [facility] UA DIP, URINE (POC)on 2024 BILIRUBIN UA (POCT) Negative Negative [facility] CLARITY UA (POCT) Clear [facility] COLOR UA (POCT) Yellow [facility] GLUCOSE UA (POCT) Negative Negative mg/dL [facility] Hemoglobin Ql (U) Trace-lysed Abnormal Negative [facility] Interpretation and review of laboratory results Abnormal [facility] KETONE UA (POCT) Negative Negative mg/dL [facility] LEUKOCYTES UA (POCT) Negative Negative [facility] NITRITE UA (POCT) Negative Negative [facility] PH UA (POCT) 5.5 4.5 - 8.0 [facility] Protein Ql (U) Negative Negative mg/dL [facility] SPECIFIC GRAVITY UA (POCT) 1.025 1.005 - 1.030 [facility] UROBILINOGEN UA (POCT) 0.2 Normal E.U./dL [facility] Location:[facility], [address] [place] [address], [place], [place], [id number] [place] [address] POINT OF CARE [facility] Urine Cultureon 10-22-2024 URC #1, 2 Below infectio n level. 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 Submit a new specimen if indicated. [facility] Comment on above: Performed By: #### B TS, L509.4006, L3890.6102, L900.0098, L3890.6006, L100.0100, L509.8002, L3890.6301 #### [facility] [address] [place], [address] CBC W/Diff, Automatedon Absolute Lymph 0.48 X10 3/uL Low 0.83-4.51 [facility] Comment on above: Performed By: #### B TS, L509.4006, L3890.6102, L900.0098, L3890.6006, L100.0100, L509.8002, L3890.6301 #### [facility] [address] [place], [address] Absolute Neut 10.7 X10 3/uL High 2.0-7.7 [facility] Comment on above: Performed By: #### B TS, L509.4006, L3890.6102, L900.0098, L3890.6006, L100.0100, L509.8002, L3890.6301 #### [facility] [address] [place], [address] Basophils/100 WBC (Bld) 0.2 % Normal 0-1 [facility] Comment on above: Performed By: #### B TS, L509.4006, L3890.6102, L900.0098, L3890.6006, L100.0100, L509.8002, L3890.6301 #### [facility] [address] [place], [address] Eosinophils/100 WBC (Bld) 0.0 % Normal 0-5 [facility] Comment on above: Performed By: #### B TS, L509.4006, L3890.6102, L900.0098, L3890.6006, L100.0100, L509.8002, L3890.6301 #### [facility] [address] [place], [address] Erythrocyte distribution width (RBC) [Ratio] 12.5 % Normal 11.6-14.6 [facility] Comment on above: Performed By: #### B TS, L509.4006, L3890.6102, L900.0098, L3890.6006, L100.0100, L509.8002, L3890.6301 #### [facility] [address] [facility] [place], [address] Hematocrit (Bld) [Volume fraction] 38.3 % Normal 37-47 [facility] Comment on above: Performed By: #### B TS, L509.4006, L3890.6102, L900.0098, L3890.6006, L100.0100, L509.8002, L3890.6301 #### [facility] [address] [facility] [place], [address] Hemoglobin (Bld) [Mass/Vol] 13.6 g/dL Normal 12.0-15.0 [facility] Comment on above: Performed By: #### B TS, L509.4006, L3890.6102, L900.0098, L3890.6006, L100.0100, L509.8002, L3890.6301 #### [facility] [address] [place], [address] IG% 0.300 Normal 0.0-0.9 [facility] Comment on above: Result Comment: IG% - Immature Granulocytes (promyelocytes, myelocytes and metamyelocytes) > 1% indicates that a LEFT SHIFT is Present. Performed By: #### B TS, L509.4006, L3890.6102, L900.0098, L3890.6006, L100.0100, L509.8002, L3890.6301 #### [facility] [address] [place], [address] Lymphocytes/100 WBC (Bld) 4.2 % Low 19-41 [facility] Comment on above: Performed By: #### B TS, L509.4006, L3890.6102, L900.0098, L3890.6006, L100.0100, L509.8002, L3890.6301 #### [facility] [address] [place], [address] MCH (RBC) [Entitic mass] 31.6 pg Normal 27.0-32.0 [facility] Comment on above: Performed By: #### B TS, L509.4006, L3890.6102, L900.0098, L3890.6006, L100.0100, L509.8002, L3890.6301 #### [facility] [address] [place], [address] MCHC (RBC) [Mass/Vol] 35.5 g/dL Normal 32-36 [facility] Comment on above: Performed By: #### B TS, L509.4006, L3890.6102, L900.0098, L3890.6006, L100.0100, L509.8002, L3890.6301 #### [facility] [address] [place], [address] MCV (RBC) [Entitic vol] 88.9 fL Normal 81-99 [facility] Comment on above: Performed By: #### B TS, L509.4006, L3890.6102, L900.0098, L3890.6006, L100.0100, L509.8002, L3890.6301 #### [facility] [address] [place], [address] Monocytes/100 WBC (Bld) 2.2 % Normal 0-10 [facility] Comment on above: Performed By: #### B TS, L509.4006, L3890.6102, L900.0098, L3890.6006, L100.0100, L509.8002, L3890.6301 #### [facility] [address] [place], [address] Neutrophils/100 WBC (Bld) 93.1 % High 47-70 [facility] Comment on above: Performed By: #### B TS, L509.4006, L3890.6102, L900.0098, L3890.6006, L100.0100, L509.8002, L3890.6301 #### [facility] [address] [place], [address] Nucleated RBC (Bld) [#/Vol] 0 10*3/uL Normal 0-5 [facility] Comment on above: Performed By: #### B TS, L509.4006, L3890.6102, L900.0098, L3890.6006, L100.0100, L509.8002, L3890.6301 #### [facility] [address] [place], [address] Platelet mean volume (Bld) [Entitic vol] 11.3 fL Normal 6.2-12.0 [facility] Comment on above: Performed By: #### B TS, L509.4006, L3890.6102, L900.0098, L3890.6006, L100.0100, L509.8002, L3890.6301 #### [facility] [address] [place], [address] Platelets (Bld) [#/Vol] 242 10*3/uL Normal 150-450 [facility] Comment on above: Performed By: #### B TS, L509.4006, L3890.6102, L900.0098, L3890.6006, L100.0100, L509.8002, L3890.6301 #### [facility] [address] [place], [address] RBC (Bld) [#/Vol] 4.31 10*6/uL Normal 4.2-5.4 [facility] Comment on above: Performed By: #### B TS, L509.4006, L3890.6102, L900.0098, L3890.6006, L100.0100, L509.8002, L3890.6301 #### [facility] [address] [place], [address] RDW SD 41.1 fl Normal 35.1-43.9 [facility] Comment on above: Performed By: #### B TS, L509.4006, L3890.6102, L900.0098, L3890.6006, L100.0100, L509.8002, L3890.6301 #### [facility] [address] [place], [address] WBC (Bld) [#/Vol] 11.5 10*3/uL High 4.4-11.0 [facility] Comment on above: Performed By: #### B TS, L509.4006, L3890.6102, L900.0098, L3890.6006, L100.0100, L509.8002, L3890.6301 #### [facility] [address] [place], [address] Comprehensive Metabolic Prof ilon 10-20-2024 Albumin [Mass/Vol] 4.4 g/dL Normal 3.5-5.0 [facility] Comment on above: Performed By: #### B TS, L509.4006, L3890.6102, L900.0098, L3890.6006, L100.0100, L509.8002, L3890.6301 #### [facility] [address] [place], [address] Albumin/Globulin [Mass ratio] 1.6 {ratio} Normal 0.9-2.4 [facility] Comment on above: Performed By: #### B TS, L509.4006, L3890.6102, L900.0098, L3890.6006, L100.0100, L509.8002, L3890.6301 #### [facility] [address] [place], [address] ALK PHOS 93 U/L Normal 35-104 [facility] Comment on above: Performed By: #### B TS, L509.4006, L3890.6102, L900.0098, L3890.6006, L100.0100, L509.8002, L3890.6301 #### [facility] [address] [place], [address] ALT [Catalytic activity/Vol] 8 U/L Normal <=34 [facility] Comment on above: Performed By: #### B TS, L509.4006, L3890.6102, L900.0098, L3890.6006, L100.0100, L509.8002, L3890.6301 #### [facility] [address] [place], [address] AST [Catalytic activity/Vol] 21 U/L Normal <=31 [facility] Comment on above: Result Comment: Hemo lysis present, Results??could be affected. ?? Performed By: #### B TS, L509.4006, L3890.6102, L900.0098, L3890.6006, L100.0100, L509.8002, L3890.6301 #### [facility] [address] [place], [address] Bilirubin [Mass/Vol] 1.42 mg/dL High 0.00-1.30 [facility] Comment on above: Performed By: #### B TS, L509.4006, L3890.6102, L900.0098, L3890.6006, L100.0100, L509.8002, L3890.6301 #### [facility] [address] [place], [address] BUN/CRE 20.6 RATIO High 10-20 [facility] Comment on above: Performed By: #### B TS, L509.4006, L3890.6102, L900.0098, L3890.6006, L100.0100, L509.8002, L3890.6301 #### [facility] [address] [place], [address] Calcium [Mass/Vol] 9.2 mg/dL Normal 7.6-11.0 [facility] Comment on above: Performed By: #### B TS, L509.4006, L3890.6102, L900.0098, L3890.6006, L100.0100, L509.8002, L3890.6301 #### [facility] [address] [place], [address] Chloride [Moles/Vol] 101 mmol/L Normal 98-108 [facility] Comment on above: Performed By: #### B TS, L509.4006, L3890.6102, L900.0098, L3890.6006, L100.0100, L509.8002, L3890.6301 #### [facility] [address] [place], [address] CO2 [Moles/Vol] 19.2 mmol/L Low 21.0-32.0 [facility] Comment on above: Performed By: #### B TS, L509.4006, L3890.6102, L900.0098, L3890.6006, L100.0100, L509.8002, L3890.6301 #### [facility] [address] [place], [address] Creatinine [Mass/Vol] 0.71 mg/dL Normal 0.70-1.20 [facility] Comment on above: Performed By: #### B TS, L509.4006, L3890.6102, L900.0098, L3890.6006, L100.0100, L509.8002, L3890.6301 #### [facility] [address] [place], [place], [id number] (176) ECRCL 95.91 ml/min Normal 50-250 [facility] Comment on above: Performed By: #### B TS, L509.4006, L3890.6102, L900.0098, L3890.6006, L100.0100, L509.8002, L3890.6301 #### [facility] [address] [place], [address] GAP 16 High 5-15 [facility] Comment on above: Performed By: #### B TS, L509.4006, L3890.6102, L900.0098, L3890.6006, L100.0100, L509.8002, L3890.6301 #### [facility] [address] [place], [address] GFR/1.73 sq M.predicted among non-blacks MDRD (S/P/Bld) [Vol rate/Area] 122 mL/min/{1.73_m2} Normal >60 [facility] Comment on above: Result Comment: mL/m in/1.73m2 CKD-EPI Creatinine Equation (2020) Performed By: #### B TS, L509.4006, L3890.6102, L900.0098, L3890.6006, L100.0100, L509.8002, L3890.6301 #### [facility] [address] [place], [address] Globulin (S) [Mass/Vol] 2.8 g/dL Normal 2.2-4.2 [facility] Comment on above: Performed By: #### B TS, L509.4006, L3890.6102, L900.0098, L3890.6006, L100.0100, L509.8002, L3890.6301 #### [facility] [address] [place], [address] Glucose [Mass/Vol] 101 mg/dL High 70-99 [facility] Comment on above: Performed By: #### B TS, L509.4006, L3890.6102, L900.0098, L3890.6006, L100.0100, L509.8002, L3890.6301 #### [facility] [address] [place], [address] Potassium [Moles/Vol] 3.5 mmol/L Normal 3.3-5.1 [facility] Comment on above: Result Comment: Hemo lysis present, Results??could be affected. ?? Performed By: #### B TS, L509.4006, L3890.6102, L900.0098, L3890.6006, L100.0100, L509.8002, L3890.6301 #### [facility] [address] [place], [address] Sodium [Moles/Vol] 136 mmol/L Normal 133-145 [facility] Comment on above: Performed By: #### B TS, L509.4006, L3890.6102, L900.0098, L3890.6006, L100.0100, L509.8002, L3890.6301 #### [facility] [address] [place] [place], [address] T PROT 7.2 g/dL Normal 5.9-8.4 [facility] Comment on above: Performed By: #### B TS, L509.4006, L3890.6102, L900.0098, L3890.6006, L100.0100, L509.8002, L3890.6301 #### [facility] [address] [place], [address] Urea nitrogen [Mass/Vol] 15 mg/dL Normal 4-19 [facility] Comment on above: Performed By: #### B TS, L509.4006, L3890.6102, L900.0098, L3890.6006, L100.0100, L509.8002, L3890.6301 #### [facility] [address] [facility] [place], [address] Emergency Department Summary on 10-20-2024 Emergency Department Summary [facility] Medical Records Department [address] [place] [address] Emergency Department Summary 10/20/24 MR#: [id number] Acct: [id number] Name: GLORIA NETTLES TOBIAS Rep #: [id number] : 2000 24 From: Fay De Los Santos DO PCP: Dr. Wilfred Egan DO Status:DEP ER Location: ED HPI HPI [...] blood in her stool or her vomit. [facility] Medical History Wears glasses History of [...] past. Sh (more content not included)... [facility] Lipaseon 10-20-2024 Lipase [Catalytic activity/Vol] 21 U/L Normal 13-75 [facility] Comment on above: Result Comment: Rashaun rodriguez note: LIPASE revised reference range effective 22. New Lipase methodology. Expected to produce lower values than the previous assay method. NEW Reference Range: 13 - 75 U/L Performed By: #### B TS, L509.4006, L3890.6102, L900.0098, L3890.6006, L100.0100, L509.8002, L3890.6301 #### [facility] [address] [place], [address] M100.678on 10-20-2024 M100.678 SARS-CoV-2 (COVID 19 ) Negative INFLUENZA A Negative INFLUENZA B Negative RSV PCR Negative Normal [facility] Comment on above: Performed By: #### B TS, L509.4006, L3890.6102, L900.0098, L3890.6006, L100.0100, L509.8002, L3890.6301 #### [facility] [address] [place], [address] ,Urineon 10-20-2024 Beta HCG ( test) Ql (U) Negative Normal [facility] Comment on above: Result Comment: Very dilute urine specimens, as indicated by a low specific gravity, may not contain artists' booking representative levels of hCG. If is still suspected, a first morning urine specimen should be collected 48 hours later and tested. Performed By: #### B TS, L509.4006, L3890.6102, L900.0098, L3890.6006, L100.0100, L509.8002, L3890.6301 #### [facility] [address] [place], [place], [id number] Urinalysis, Completeon 10-20 KETONE UR 150 mg/dl Abnormal Negative [facility] Comment on above: Order Comment: PN Result Comment: CRIT ICAL VALUE *H CRITICAL VALUE CALLED TO SHEN 10/20/24 0349 Otoniel Haque. RESULTS READ BACK BY SAME. Performed By: #### B TS, L509.4006, L3890.6102, L900.0098, L3890.6006, L100.0100, L509.8002, L3890.6301 #### [facility] [address] [place], [place], [id number] BACTERIA 3+ /hpf Normal None Seen [facility] Comment on above: Order Comment: PN Performed By: #### B TS, L509.4006, L3890.6102, L900.0098, L3890.6006, L100.0100, L509.8002, L3890.6301 #### [facility] [address] [place], [address] EPI,SQUAMOUS 10-25 SEEN Normal 5-10 [facility] Comment on above: Order Comment: PN Performed By: #### B TS, L509.4006, L3890.6102, L900.0098, L3890.6006, L100.0100, L509.8002, L3890.6301 #### [facility] [address] [place], [address] Mucus Ql (Urine sed) 3+ /hpf Normal [facility] Comment on above: Order Comment: PN Performed By: #### B TS, L509.4006, L3890.6102, L900.0098, L3890.6006, L100.0100, L509.8002, L3890.6301 #### [facility] [address] [place], [address] RBC 0 SEEN Normal 0-5 [facility] Comment on above: Order Comment: PN Performed By: #### B TS, L509.4006, L3890.6102, L900.0098, L3890.6006, L100.0100, L509.8002, L3890.6301 #### [facility] [address] [place], [address] WBC 50-100 SEEN Normal 0-5 [facility] Comment on above: Order Comment: PN Performed By: #### B TS, L509.4006, L3890.6102, L900.0098, L3890.6006, L100.0100, L509.8002, L3890.6301 #### [facility] [address] [place], [address] BILIRUBIN URINE 1 mg/dL Abnormal Negative [facility] Comment on above: Order Comment: PN Result Comment: COLO R OF URINE MAY AFFECT DIPSTICK RESULTS. Performed By: #### B TS, L509.4006, L3890.6102, L900.0098, L3890.6006, L100.0100, L509.8002, L3890.6301 #### [facility] [address] [place], [address] Clarity (U) Sl. Cloudy Normal Clear [facility] Comment on above: Order Comment: PN Performed By: #### B TS, L509.4006, L3890.6102, L900.0098, L3890.6006, L100.0100, L509.8002, L3890.6301 #### [facility] [address] [place], [address] Color (U) Yellow Normal Yellow [facility] Comment on above: Order Comment: PN Performed By: #### B TS, L509.4006, L3890.6102, L900.0098, L3890.6006, L100.0100, L509.8002, L3890.6301 #### [facility] [address] [place], [address] GLUCOSE, UR Normal Normal Normal [facility] Comment on above: Order Comment: PN Performed By: #### B TS, L509.4006, L3890.6102, L900.0098, L3890.6006, L100.0100, L509.8002, L3890.6301 #### [facility] [address] [place], [address] LEUK ESTERASE 500 /ul Abnormal Negative [facility] Comment on above: Order Comment: PN Performed By: #### B TS, L509.4006, L3890.6102, L900.0098, L3890.6006, L100.0100, L509.8002, L3890.6301 #### [facility] [address] [place], [address] Nitrite Ql (U) Negative Normal Negative [facility] Comment on above: Order Comment: PN Performed By: #### B TS, L509.4006, L3890.6102, L900.0098, L3890.6006, L100.0100, L509.8002, L3890.6301 #### [facility] [address] [place], [address] OCCULT BLOOD-UR Negative Normal Negative [facility] Comment on above: Order Comment: PN Performed By: #### B TS, L509.4006, L3890.6102, L900.0098, L3890.6006, L100.0100, L509.8002, L3890.6301 #### [facility] [address] [place], [address] pH UR 6.0 Normal 5.0 - 8.0 [facility] Comment on above: Order Comment: PN Performed By: #### B TS, L509.4006, L3890.6102, L900.0098, L3890.6006, L100.0100, L509.8002, L3890.6301 #### [facility] [address] [place], [address] PROT DIPSTX 30 mg/dl Abnormal Negative [facility] Comment on above: Order Comment: PN Performed By: #### B TS, L509.4006, L3890.6102, L900.0098, L3890.6006, L100.0100, L509.8002, L3890.6301 #### [facility] [address] [place], [address] SP.GR. DIPSTX 1.025 Normal 1.002-1.030 [facility] Comment on above: Order Comment: PN Performed By: #### B TS, L509.4006, L3890.6102, L900.0098, L3890.6006, L100.0100, L509.8002, L3890.6301 #### [facility] [address] [place], [address] UROBILI 1 mg/dl Abnormal Normal [facility] Comment on above: Order Comment: PN Performed By: #### B TS, L509.4006, L3890.6102, L900.0098, L3890.6006, L100.0100, L509.8002, L3890.6301 #### [facility] [address] [place], [address] Basic Metabolic Profile (BMP )on 06-25-2024 BUN/CRE 12.8 RATIO Normal 10-20 [facility] Comment on above: Performed By: #### L 500.2500, L100.0100 #### [facility] [address] [place], [address] CA,Total 8.9 mg/dL Normal 8.5-10.1 [facility] Comment on above: Performed By: #### L 500.2500, L100.0100 #### [facility] [address] [place], [address] Chloride [Moles/Vol] 112 mmol/L High 98-107 [facility] Comment on above: Performed By: #### L 500.2500, L100.0100 #### [facility] [address] [place], [address] CO2 [Moles/Vol] 23.0 mmol/L Normal 21.0-32.0 [facility] Comment on above: Performed By: #### L 500.2500, L100.0100 #### [facility] [address] [place], [address] Creatinine [Mass/Vol] 0.78 mg/dL Normal 0.55-1.02 [facility] Comment on above: Result Comment: The validity of the calculated GFR GFRAA in patients over 70 years has not been determined. Clinical correlation is essential. Performed By: #### L 500.2500, L100.0100 #### [facility] [address] [place], [address] ECRCL 93.58 ml/min Normal [facility] Comment on above: Performed By: #### L 500.2500, L100.0100 #### [facility] [address] [place], [address] EST GFR - AA 117 mL/min Normal >60 [facility] Comment on above: Result Comment: Afri can Gu[place]ian GFR Calc Performed By: #### L 500.2500, L100.0100 #### [facility] [address] [place], [address] GAP 4 Low 5-15 [facility] Comment on above: Performed By: #### L 500.2500, L100.0100 #### [facility] [address] [place], [address] GFR/1.73 sq M.predicted among non-blacks MDRD (S/P/Bld) [Vol rate/Area] 97 mL/min/{1.73_m2} Normal >60 [facility] Comment on above: Result Comment: Non- GFR Calc Performed By: #### L 500.2500, L100.0100 #### [facility] [address] [place], [address] Glucose [Mass/Vol] 120 mg/dL High 74-106 [facility] Comment on above: Result Comment: Fast ing Glucose result from 100 to 125 mg/dL suggests IMPAIRED HOMEOSTASIS per A.D.A. criteria. Performed By: #### L 500.2500, L100.0100 #### [facility] [address] [place], [address] Potassium [Moles/Vol] 3.5 mmol/L Normal 3.5-5.1 [facility] Comment on above: Performed By: #### L 500.2500, L100.0100 #### [facility] [address] [place], [address] Sodium [Moles/Vol] 138 mmol/L Normal 136-145 [facility] Comment on above: Performed By: #### L 500.2500, L100.0100 #### [facility] [address] [place], [address] Urea nitrogen [Mass/Vol] 10 mg/dL Normal 7-18 [facility] Comment on above: Performed By: #### L 500.2500, L100.0100 #### [facility] [address] [place], [address] CBC W/Diff, Automatedon 11-0 7-2023 Absolute Lymph 1.02 X10 3/uL Normal 0.83-4.51 [facility] Comment on above: Performed By: #### L 500.2500, L100.0100 #### [facility] [address] [place], [address] Absolute Neut 10.7 X10 3/uL High 2.0-7.7 [facility] Comment on above: Performed By: #### L 500.2500, L100.0100 #### [facility] [address] [place], [address] Basophils/100 WBC (Bld) 0.5 % Normal 0-1 [facility] Comment on above: Performed By: #### L 500.2500, L100.0100 #### [facility] [address] [place], [address] Eosinophils/100 WBC (Bld) 0.6 % Normal 0-5 [facility] Comment on above: Performed By: #### L 500.2500, L100.0100 #### [facility] [address] [place], [address] Erythrocyte distribution width (RBC) [Ratio] 13.1 % Normal 11.6-14.6 [facility] Comment on above: Performed By: #### L 500.2500, L100.0100 #### [facility] [address] [place], [address] Hematocrit (Bld) [Volume fraction] 39.3 % Normal 37-47 [facility] Comment on above: Performed By: #### L 500.2500, L100.0100 #### [facility] [address] [place], [address] Hemoglobin (Bld) [Mass/Vol] 13.8 g/dL Normal 12.0-15.0 [facility] Comment on above: Performed By: #### L 500.2500, L100.0100 #### [facility] [address] [place], [address] IG% 0.400 Normal 0.0-0.9 [facility] Comment on above: Result Comment: IG% - Immature Granulocytes (promyelocytes, myelocytes and metamyelocytes) > 1% indicates that a LEFT SHIFT is Present. Performed By: #### L 500.2500, L100.0100 #### [facility] [address] [place], [address] Lymphocytes/100 WBC (Bld) 8.3 % Low 19-41 [facility] Comment on above: Performed By: #### L 500.2500, L100.0100 #### [facility] [address] [place], [address] MCH (RBC) [Entitic mass] 30.5 pg Normal 27.0-32.0 [facility] Comment on above: Performed By: #### L 500.2500, L100.0100 #### [facility] [address] [place], [address] MCHC (RBC) [Mass/Vol] 35.1 g/dL Normal 32-36 [facility] Comment on above: Performed By: #### L 500.2500, L100.0100 #### [facility] [address] [place], [address] MCV (RBC) [Entitic vol] 86.9 fL Normal 81-99 [facility] Comment on above: Performed By: #### L 500.2500, L100.0100 #### [facility] [address] [place], [address] Monocytes/100 WBC (Bld) 2.9 % Normal 0-10 [facility] Comment on above: Performed By: #### L 500.2500, L100.0100 #### [facility] [address] [place], [address] Neutrophils/100 WBC (Bld) 87.3 % High 47-70 [facility] Comment on above: Performed By: #### L 500.2500, L100.0100 #### [facility] [address] [place], [address] Nucleated RBC (Bld) [#/Vol] 0 10*3/uL Normal 0-5 [facility] Comment on above: Performed By: #### L 500.2500, L100.0100 #### [facility] [address] [place], [address] Platelet mean volume (Bld) [Entitic vol] 9.8 fL Normal 6.2-12.0 [facility] Comment on above: Performed By: #### L 500.2500, L100.0100 #### [facility] [address] [place], [address] Platelets (Bld) [#/Vol] 254 10*3/uL Normal 150-450 [facility] Comment on above: Performed By: #### L 500.2500, L100.0100 #### [facility] [address] [place], [address] RBC (Bld) [#/Vol] 4.52 10*6/uL Normal 4.2-5.4 [facility] Comment on above: Performed By: #### L 500.2500, L100.0100 #### [facility] [address] [place], [address] RDW SD 40.7 fl Normal 35.1-43.9 [facility] Comment on above: Performed By: #### L 500.2500, L100.0100 #### [facility] [address] [place], [address] WBC (Bld) [#/Vol] 12.3 10*3/uL High 4.4-11.0 [facility] Comment on above: Performed By: #### L 500.2500, L100.0100 #### [facility] [address] [place], [address] Emergency Department Summary on 06-25-2024 Emergency Department Summary [facility] Medical Records Department [address] [place] [address] Emergency Department Summary 06/25/24 MR#: [id number] Acct: [id number] Name: GLORIA NETTLES TOBIAS Rep #: [id number] : 2000 23 From: Ignacio Murphy DO PCP: Dr. Wilfred Egan DO Status:[facility] ER Location: ED ADDENDUM by Dr. Ignacio [...] History of Present Illness Chief Complaint: Anxiety PFSH PFS Medical History Wears glasses History of steroid [...] Ox 98 Oxygen Delivery Method Room Air MDM MDM MDM Narrative Medical decision making narrative: HISTORY [...] colonoscopy that (more content not included)... [facility] ,Urineon 06-25-2024 Beta HCG ( test) Ql (U) Normal [facility] Comment on above: Result Comment: NICK ENT DISCHARGED Performed By: #### B TS, L509.4006, L3890.6102, L900.0098, L3890.6006, L100.0100, L509.8002, L3890.6301 #### [facility] [address] [place], [address] INTERNAL QC OK? Normal [facility] Comment on above: Result Comment: NICK ENT DISCHARGED Performed By: #### B TS, L509.4006, L3890.6102, L900.0098, L3890.6006, L100.0100, L509.8002, L3890.6301 #### [facility] [address] [place], [address] RECORD KIT LOT# Normal [facility] Comment on above: Result Comment: NICK ENT DISCHARGED Performed By: #### B TS, L509.4006, L3890.6102, L900.0098, L3890.6006, L100.0100, L509.8002, L3890.6301 #### [facility] [address] [place], [address] CNOVon 03-04-2024 CNOV Office Visit (ZHAO ) THO,GLORIA Hillman ([id number]) 2 F Date Time Provider Department 03/04/24 9:00 AM PONCHO JAIME During your visit today, we recorded the following information about you: Pulse Respiration Blood pressure Weight 81/minute 16/minute 108/62 54.2 kg Poncho Jaime APRN.[employer]NAGERS 03/04/2024 6:30 PM Signed Chief Complaint Patient presents with: ER F/U: Abd pain, seeing gastro next month, anxiety HPI Gloria Hillman Tho is a 23 year old female who presents here today for Above Complaints.. [facility] ER on 02/27 with abdominal pain and anxiety. Is seeing Dr. Adkins GI at [facility]. Stress/anxiety-work has been frustrating lately. Has [...] somewhat and this lasts a few hours. [id number] like to take this a lot because [...] plan 11/24/2020 placed on care plan by [facility] ED for excessive visits Previous Surgical [...] with plan to see Dr. Adkins with [facility] GI. - SERTRALINE 50 MG TABLET - CONSULT TO PSYCHIATRY 2. Abdominal cramping - ICD9: 789.00, ICD10: R10.9 Continue with plan to see Dr. Adkins with [facility] GI. - SERTRALINE 50 MG TABLET - CONSULT TO PSYCHIATRY 3. Nausea and vomiting, unspecified vomiting type (more content not included)... Normal [facility] COVID-19, MOLECULARon 2022 SARS-CoV-2 (COVID-19) Ab IA Ql Not detected Normal Not Detected [facility] Comment on above: Result Comment: This test [...] at the following links: For Healthcare Providers: https://www.fda.gov/media/438256/download For Patients: https://www.fda.gov/media/958712/download CT ABDOMEN PELVIS WITH IV CO NTRAST [...] on SatDecember 26, 2022 11:21:22 PM EDT Normal [facility] Comment on above: Order Comment: Injur y/Trauma or Illness?:Illness/Other How long have you had these symptoms (acute/chronic)?:Acute Reason for exam?:abd pain and vomiting Type of Exam?:Initial Additional signs and symptoms?:none HCG Preg Ur Qlon 10-20-2020 HCG ( test) Ql (U) Negative Normal Negative [facility] Comment on above: Order Comment: Speci men Type: URINE SPECIMEN Result Comment: This test is intended to aid in the early detection of . Very dilute urine samples, as indicated by a low specific gravity, may not contain artists' booking representative levels of hCG. This test detects [...] . Performed By: #### 2 106-3 #### [facility] CLIA [id number] [address] [place] [address] [facility] SURGICAL PATHOLOGYon 021 CASE REPORT Normal [facility] Comment on above: Order Comment: Speci men Type: TISSUE SPECIMEN Result Comment: Surg ical Pathology Report Case: [id number] Authorizing Provider: Maryjane Levy Collected: 10/20/2020 01:09 PM Ordering Location: SURGERY Received: 10/21/2020 06:46 AM Pathologist: Yves Sandoval MD Specimens: A) - DUODENUM BIOPSY, Second Portion Duodenun B) - ANTRUM C) - ESOPHAGUS BIOPSY, Mid Esophagus D) - COLON BIOPSY, Random Mucosal Biopsies Performed By: #### S #### [facility] CLIA [id number] [address] [place] [address] FINAL DIAGNOSIS Normal [facility] Comment on above: Order Comment: [...] histopathologic change. Performed By: #### S #### [facility] CLIA [id number] [address] [place] [address] FINAL PERFORMING LAB Normal [facility] Comment on above: Order Comment: Speci men Type: TISSUE SPECIMEN Result Comment: Diag nostic interpretation performed at [facility], [address] [place] [address] CLIA# [id number] Newspaper Managing Editor: Zafar Jacome M.D. Performed By: #### S #### [facility] CLIA [id number] [address] [place] [address] GROSS DESCRIPTION Normal [facility] Comment on above: Order Comment: [...] 1 cassette. RSA/pkp Gross examination performed at [facility], [address] [place] [address] CLIA# [id number] Performed By: #### S #### [facility] CLIA [id number] [address] [place] [address] Vital Signs Date Time Vital Sign Value Performing Clinician Facility 02-02-2025 08:49-0400 Body mass index (BMI) [Ratio] 19.94 kg/m2 Natali Zepeda GUEST SERVICE TEAM LEADER.[employer] Work Phone: [facility] 02-02-2025 08:49-0400 Body temperature 97.11 [degF] Natali Zepeda GUEST SERVICE TEAM LEADER.[employer] Work Phone: [facility] 02-02-2025 08:49-0400 Body weight 52.7 kg Natalijn Zepeda GUEST SERVICE TEAM LEADER.[employer] Work Phone: [facility] 02-02-2025 08:49-0400 Diastolic blood pressure 62 mm[Hg] Natali Zepeda GUEST SERVICE TEAM LEADER.[employer]NAGERS Work Phone: [facility] 02-02-2025 08:49-0400 Heart rate 78 /min Natali Zepeda GUEST SERVICE TEAM LEADER.[employer] Work Phone: [facility] 02-02-2025 08:49-0400 Respiratory rate 16 /min Natalijn Zepeda GUEST SERVICE TEAM LEADER.[employer] Work Phone: [facility] 02-02-2025 08:49-0400 SaO2% (BldA) [Mass fraction] 97 % Natali Zepeda GUEST SERVICE TEAM LEADER.[employer]NAG[employer] Work Phone: [facility] 02-02-2025 08:49-0400 Systolic blood pressure 108 mm[Hg] Natali Zepeda GUEST SERVICE TEAM LEADER.[employer] Work Phone: [facility] 03-04-2024 09:10-0400 Body mass index (BMI) [Ratio] 20.49 kg/m2 Poncho Jaime GUEST SERVICE TEAM LEADER.[employer] Work Phone: [facility] 03-04-2024 09:10-0400 Body weight 54.16 kg Poncho Sheldon GUEST SERVICE TEAM LEADER.[employer] Work Phone: [facility] 03-04-2024 09:10-0400 Diastolic blood pressure 62 mm[Hg] Poncho Sheldon GUEST SERVICE TEAM LEADER.[employer] Work Phone: [facility] 03-04-2024 09:10-0400 Heart rate 81 /min Poncho Sheldon GUEST SERVICE TEAM LEADER.[employer] Work Phone: [facility] 03-04-2024 09:10-0400 Respiratory rate 16 /min Poncho Sheldon GUEST SERVICE TEAM LEADER.[employer] Work Phone: [facility] 03-04-2024 09:10-0400 SaO2% (BldA) [Mass fraction] 99 % Poncho Sheldon GUEST SERVICE TEAM LEADER.[employer] Work Phone: [facility] 03-04-2024 09:10-0400 Systolic blood pressure 108 mm[Hg] Poncho Sheldon GUEST SERVICE TEAM LEADER.[employer] Work Phone: [facility] 10-19-2022 15:14-0500 Body temperature 97.81 [degF] Wilfred Egan DO Work Phone: [facility] 10-19-2022 15:14-0500 Body weight 55.79 kg Wilfred Egan DO Work Phone: [facility] 10-19-2022 15:14-0500 Diastolic blood pressure 60 mm[Hg] Wilfred Egan DO Work Phone: [facility] 10-19-2022 15:14-0500 Heart rate 96 /min Wilfred Egan DO Work Phone: [facility] 10-19-2022 15:14-0500 Respiratory rate 16 /min Wilfred Egan DO Work Phone: [facility] 10-19-2022 15:14-0500 Systolic blood pressure 120 mm[Hg] Wilfred Egan DO Work Phone: [facility] 05-20-2022 03:36-0400 Body height 160 cm Savage Scott MD Work Phone: 5(547)346-754980 [address] 05-20-2022 03:36-0400 Body mass index (BMI) [Ratio] 23.03 kg/m2 Savage Scott MD Work Phone: 2(027)926-706382 [place] [address] 05-20-2022 03:36-0400 Body weight 58.97 kg Savage Scott MD Work Phone: 4(282)957-260282 [place] [address] 05-20-2022 03:35-0400 Body temperature 98.1 [degF] Savage Scott MD Work Phone: 8(411)694-425182 [place] [address] 05-20-2022 03:35-0400 Diastolic blood pressure 60 mm[Hg] Savage Scott MD Work Phone: 3(285)184-717182 [place] [address] 05-20-2022 03:35-0400 Heart rate 105 /min Savage Scott MD Work Phone: 6(212)283-156582 [place] [address] 05-20-2022 03:35-0400 Respiratory rate 20 /min Savage Scott MD Work Phone: 4(782)801-002682 [place] [address] 05-20-2022 03:35-0400 SaO2% (BldA) [Mass fraction] 99 % Savage Scott MD Work Phone: 2(585)633-308082 [place] [address] 05-20-2022 03:35-0400 Systolic blood pressure 127 mm[Hg] Savage Scott MD Work Phone: 5(052)383-553980 [address] 01-17-2022 08:29-0400 Body weight 61.24 kg Poncoh Jaime GUEST SERVICE TEAM LEADER.[employer]GERS Work Phone: [facility] 01-17-2022 08:29-0400 Diastolic blood pressure 74 mm[Hg] Poncho Jaime GUEST SERVICE TEAM LEADER.[employer]NAGERS Work Phone: [facility] 01-17-2022 08:29-0400 Heart rate 74 /min Poncho Jaime GUEST SERVICE TEAM LEADER.[employer]NAGERS Work Phone: [facility] 01-17-2022 08:29-0400 Respiratory rate 16 /min Poncho Jaime GUEST SERVICE TEAM LEADER.[employer]NAGERS Work Phone: [facility] 01-17-2022 08:29-0400 SaO2% (BldA) [Mass fraction] 97 % Poncho Sheldon GUEST SERVICE TEAM LEADER.[employer]UC[employer] MANAGERS Work Phone: [facility] 01-17-2022 08:29-0400 Systolic blood pressure 104 mm[Hg] Poncho Sheldon GUEST SERVICE TEAM LEADER.[employer]NAGERS Work Phone: [facility] Encounters Encounter Date Encounter Type Care Provider Facility Start: 06-14-2025 ambulatory Wilfred Egan Facilit [facility] Start: 06-11-2025 End: 06-11-2025 ambulatory Wilfred Egan Facility:[facility] Start: 06-11-2025 End: 06-11[facility] Start: 06-09-2025 End: 06-09-2025 Emergency department patient visit Heladio Tiwari [facility] Start: 06-03-2025 End: 06-03-2025 Emergency department patient visit Wilfred Egan [facility] Start: 05-21-2025 End: 05-21-2025 ambulatory [facility] Facility:[facility] Start: 05-21-2025 End: 05-21-2025 ambulatory Raina Sebastien [facility] Start: 05-13-2025 End: 05-13-2025 Emergency department patient visit Wilfred Floresrison [facility] Start: 05-12-2025 End: 05-12-2025 Emergency department patient visit Wilfred Egan [facility] Start: 05-04-2025 End: 05-04-2025 ambulatory [facility] Facility:[facility] Start: 02-03-2025 End: 02-03-2025 Follow-up encounter Lias Banda GUEST SERVICE TEAM LEADER.[employer]NAGERS Work Phone: [facility] Start: 02-02-2025 End: 02-02-2025 Patient encounter procedure Natali Zepeda GUEST SERVICE TEAM LEADER.[employer]NAGERS Work Phone: [place] [facility] Comment on above: Hematuria, unspecifi ed type (Primary Dx); Vaginal discomfort; Encounter for screening for bacterial sexually transmitted disease Start: 02-02-2025 End: 02-02-2025 ambulatory WILFRED Jonnie AVTAR Facility:[facility] Start: 10-20-2024 End: 10-20-2024 Emergency department patient visit Wilfred Egan [facility] Start: 06-25-2024 End: 06-25-2024 Emergency department patient visit Wilfred Egan [facility] Start: 03-04-2024 End: 03-04-2024 ambulatory PONCHO SHELDON Facility:[facility] Start: 03-04-2024 End: 03-04-2024 Office outpatient visit 25 minutes Poncho Jaime APRN.CNP Work Phone: [facility] [place] Comment on above: Anxiety (Primary Dx) ; Abdominal cramping; Nausea and vomiting, unspecified vomiting type Start: 05-15-2023 End: 05-15-2023 Emergency department patient visit CHASITY DUNHAMFlorentin PARIKH [facility] Start: 12-28-2022 End: 12-28-2022 Emergency department patient visit WILFRED Jonnie EGAN [facility] Start: 12-26-2022 End: 12-27-2022 Emergency department patient visit WILFRED Jonnie [facility] Start: 10-22-2022 Patient encounter status Marco Antonio Egan DO Work Phone: [facility] Work Phone: Start: 10-19-2022 End: 10-19-2022 Patient encounter procedure Wilfred Egan DO Work Phone: [facility] [place] Comment on above: Well adult exam (Beatris andreas Dx); Anxiety; Thyromegaly Start: 10-19-2022 End: 10-19-2022 Patient encounter status Wilfred Egan DO Work Phone: [facility] [place] Start: 05-20-2022 End: 05-20-2022 Emergency department patient visit SAVAGE SCOTT Facility:[facility] Start: 05-20-2022 End: 05-20-2022 Emergency department patient visit Savage Scott MD Work Phone: [facility] Start: 02-01-2022 End: 02-01-2022 Patient encounter procedure Bowen Leroy FLAME CHANNELER Work Phone: Psychology Comment on above: No-show for appointm ent (Primary Dx) Start: 01-17-2022 Telephone encounter Bowen augustin FLAME CHANNELER Work Phone: [facility] Comment on above: Consult (Initial [facility] W Pt Outreach) Start: 01-17-2022 End: 01-17-2022 Patient encounter procedure Poncho Jaime GUEST SERVICE TEAM LEADER.[employer]NAG[employer] Work Phone: [facility] [place] Comment on above: Major depressive dis order, remission status unspecified, unspecified whether recurrent (Primary Dx); Anxiety; Chronic superficial gastritis without bleeding; Lower abdominal pain Procedures Date Procedure Procedure Detail Performing Clinician Start: 02-02-2025 Urnls dip stick/tabl et rgnt auto w/o microscopy Natali Zepeda GUEST SERVICE TEAM LEADER.[employer] Work Phone: Plan of Treatment Date Care Activity Detail Author Start: 02-02-2026 GC (Gonorrhea) Scree anne (18-24) GC (Gonorrhea) Screening (18-24) [facility] Start: 02-02-2026 Screening for Chlamy ihsan trachomatis Chlamydia Screening () [facility] Start: 04-19-2025 Influenza vaccination Influenz a Vaccine (Season Ended) [facility] Start: 06-24-2024 End: 06-24-2024 Patient encounter procedure 06/24/2024 2:20 PM EST Office Visit [facility] [place] [address] [place] [phone] Wilfred Egan, DO [address] [place] [phone] [facility] [place] Comment on above: Physical Start: 04-23-2024 End: 04-23-2024 ambulatory 04/23/2024 10:00 AM EDT [facility] [address] [place] [address] Nichol Dowell, GUEST SERVICE TEAM LEADER.[employer]NAGERS [address] [facility] [place] [id number] Anxiety [F41.9] Psychiatry Comment on above: Anxiety [F41.9] Start: 04-19-2024 Covid-19 Vaccine ( season) Covid-19 Vaccine ( season) [facility] Start: 04-19-2024 Influenza vaccination Influenza Vacc ine (#1) [facility] Start: 03-30-2024 Urine microalbumin profile [facility] Start: 10-20-2023 COVID-19 VACCINE (#1) COVID-19 VACCI NE (#1) [facility] Comment on above: Postponed from 12/24 (Declined at this time) Start: 08-19-2023 Behavioral Health Screening Behavioral Health Screening [facility] Start: 04-19-2023 Covid-19 Vaccine ( season) Covid-19 Vaccine ( season) [facility] Start: 02-15-2023 Influenza vaccination INFLUENZA (#1) [facility] Comment on above: Postponed from 04/19 (Declined at this time) Start: 10-19-2022 End: 12-19-2022 CBC W Auto Differential panel - Blood CBC + DIFF Lab Routine Anxiety Thyromegaly Expected: 10/19/2022, Expires: 12/19/2022 [facility] Work Phone: Comment on above: Expected: 10/19/2022 , Expires: 12/19/2022 Start: 10-19-2022 End: 12-19-2022 Comprehensive metabolic 2000 panel - Serum or Plasma COMP METABOLIC PANEL Lab Routine Anxiety Thyromegaly Expected: 10/19/2022, Expires: 12/19/2022 [facility] Work Phone: Comment on above: Expected: 10/19/2022 , Expires: 12/19/2022 Start: 10-19-2022 End: 12-19-2022 THYROID PEROXIDASE ANTIBODY BLOOD THYROID PEROXIDASE ANTIBODY BLOOD Lab Routine Anxiety Thyromegaly Expected: 10/19/2022, Expires: 12/19/2022 [facility] Work Phone: Comment on above: Expected: 10/19/2022 , Expires: 12/19/2022 Start: 10-19-2022 End: 12-19-2022 Thyrotropin [Units/volume] in Serum or Plasma TSH BLD Lab Routine Anxiety Thyromegaly Expected: 10/19/2022, Expires: 12/19/2022 [facility] Work Phone: Comment on above: Expected: 10/19/2022 , Expires: 12/19/2022 Start: 10-19-2022 End: 12-19-2022 Thyroxine (T4) free [Mass/volume] in Serum or Plasma T4 FREE/FREE THYROX Lab Routine Anxiety Thyromegaly Expected: 10/19/2022, Expires: 12/19/2022 [facility] Work Phone: Comment on above: Expected: 10/19/2022 , Expires: 12/19/2022 Start: 10-19-2022 End: 12-19-2022 Triiodothyronine (T3) Free [Mass/volume] in Serum or Plasma T3 FREE BLD Lab Routine Anxiety Thyromegaly Expected: 10/19/2022, Expires: 12/19/2022 [facility] Work Phone: Comment on above: Expected: 10/19/2022 , Expires: 12/19/2022 Start: 2022 PAP TESTING PAP TESTING [facility] Start: 2022 Screening for malign ant neoplasm of cervix Cervical Cancer Screening [facility] Start: 04-19-2022 Influenza vaccination [facility] Start: 2020 Third diphtheria, te tanus and acellular pertussis (DTaP) vaccination TDAP (ADULT) [facility] Start: 2019 CHLAMYDIA SCREENING (18-24) CHLAMYDIA SCREENING (18-24) [facility] Start: 2019 Depression Screening Depression Scre ening [facility] Start: 2019 GC (GONORRHEA) SCREE ANNE (18-24) GC (GONORRHEA) SCREENING (18-24) [facility] Start: 2019 HEPATITIS C SCREENING HEPATITIS C SC REENING [facility] Start: 2019 Hepatitis C screening Hepatitis C Sc jackelinening [facility] Start: 2019 HIV SCREENING HIV SCREENING [facility] Start: 2019 HIV screening HIV Screening [facility] Start: 2019 Screening for Chlamy ihsan trachomatis Chlamydia Screening (18-24) [facility] Start: 2019 Tetanus vaccination TETANUS [facility] Start: 2017 Meningococcal B Vacc ine (1 of 2 - Standard) Meningococcal B Vaccine (1 of 2 - Standard) [facility] Start: 2017 Meningococcal B Vacc ine: Consider Based On Risk (1 of 2 - Patient Seeks Protection) Meningococcal B Vaccine: Consider Based On Risk (1 of 2 - Patient Seeks Protection) [facility] Start: 2017 Screening for Chlamy ihsan trachomatis CHLAMYDIA SCREEN [facility] Start: 2016 HIV screening HIV SCREENING DISCUSSION [facility] Start: 2016 HPV Vaccine (1 - 3-d ose series) HPV Vaccine (1 - 3-dose series) [facility] Start: 2015 PEDS TO ADULT TRANSI TION ANNUAL ASSESSMENT PEDS TO ADULT TRANSITION ANNUAL ASSESSMENT [facility] Start: 2013 Adult depression scr eening assessment DEPRESSION SCREENING [facility] Start: 2013 PEDS TO ADULT TRANSI TION INITIAL DISCUSSION PEDS TO ADULT TRANSITION INITIAL DISCUSSION [facility] Start: 2012 HPV VACCINE (1 - 2-d ose series) HPV VACCINE (1 - 2-dose series) [facility] Start: 2012 Vaccination for rhett n papillomavirus HPV VACCINE ADOL (1 - 2-dose series) [facility] Start: 2011 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 B: Con log cutter based on risk (1 of 2 - Risk Bexsero 2-dose series) 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 B: Consider based on risk (1 of 2 - Risk Bexsero 2-dose series) [facility] Start: 2006 COVID-19 VACCINE (#1) COVID-19 VACCI NE (#1) [facility] Start: 2001 COVID-19 VACCINE (#1) COVID-19 VACCI NE (#1) [facility] Start: 2001 GONORRHEA SCREEN GONORRHEA SCREEN OS [facility] Start: 2001 Hepatitis C antibody , confirmatory test HEPATITIS C VIRUS SCREENING [facility] Bacteria identified in Urine by Culture BACTERIAL CULTURE, URINE Microbiology Routine Hematuria, unspecified type 02/02/2025 9:02 AM EDT [facility] Work Phone: BACTERIAL VAGINOSIS NAAT BACTERI AL VAGINOSIS NAAT Lab Routine Vaginal discomfort Encounter for screening for bacterial sexually transmitted disease 02/02/2025 9:02 AM EDT [facility] ADELITA/TRICHOMONAS NAAT ADELITA /TRICHOMONAS NAAT Lab Routine Vaginal discomfort Encounter for screening for bacterial sexually transmitted disease 02/02/2025 9:02 AM T [facility] Chlamydia trachomatis+Neisseria gonorrhoeae DNA [Presence] in Unspecified specimen by OLIVIA with probe detection GONORRHEA/CHLAMYDIA NAAT Lab Routine Vaginal discomfort Encounter for screening for bacterial sexually transmitted disease 02/02/2025 9:02 AM [facility] End: 05-20-2022 [facility] Comment on above: One Time for 1 Occur karlie starting 05/20/2022 until 05/20/2022 Immunizations Immunization Date Immunization Notes Care Provider Fa danielle 06-03-2020 influenza virus vacc ine, unspecified formulation Poncho Sheldon GUEST SERVICE TEAM LEADER.[facility] Work Phone: [facility] 04-07-2019 meningococcal polysaccharide (groups A, C, Y and W-135) diphtheria toxoid conjugate vaccine (MCV4P) Poncho Sheldon GUEST SERVICE TEAM LEADER.[facility] Work Phone: [facility] Work Phone: 03-30-2014 Meningococcal, MCV4, unspecified conjugate formulation(groups A, C, Y and W-135) Poncho Sheldon GUEST SERVICE TEAM LEADER.[facility] Work Phone: [facility] Work Phone: 03-30-2014 tetanus toxoid, redu delfino diphtheria toxoid, and acellular pertussis vaccine, adsorbed Poncho Sheldon GUEST SERVICE TEAM LEADER.[facility] Work Phone: [facility] Work Phone: 01-27-2007 diphtheria, tetanus toxoids and acellular pertussis vaccine Poncho Sheldon GUEST SERVICE TEAM LEADER.[facility] Work Phone: [facility] Work Phone: 01-27-2007 measles, mumps and rubella virus vaccine Poncho Sheldon GUEST SERVICE TEAM LEADER.[employer] Work Phone: [facility] Work Phone: 01-27-2007 poliovirus vaccine, inactivated Poncho Sheldon GUEST SERVICE TEAM LEADER.[employer] Work Phone: [facility] Work Phone: 01-27-2007 varicella virus vaccine Bridget kah Sheldon GUEST SERVICE TEAM LEADER.[facility] Work Phone: [facility] Work Phone: 12-28-2005 varicella virus vaccine Bridget lawrence Shedlon GUEST SERVICE TEAM LEADER.[facility] Work Phone: [facility] Work Phone: 12-21-2002 diphtheria, tetanus toxoids and acellular pertussis vaccine Poncho Sheldon GUEST SERVICE TEAM LEADER.[facility] Work Phone: [facility] Work Phone: 09-21-2002 haemophilus influenz ae type b vaccine, HbOC conjugate Poncho Sheldon GUEST SERVICE TEAM LEADER.[facility] Work Phone: [facility] Work Phone: 07-15-2002 hepatitis B vaccine, pediatric or pediatric/adolescent dosage Poncho Sheldon GUEST SERVICE TEAM LEADER.[employer] Work Phone: [facility] Work Phone: 07-15-2002 measles, mumps and rubella virus vaccine Poncho Sheldon GUEST SERVICE TEAM LEADER.[facility] Work Phone: [facility] Work Phone: 07-15-2002 poliovirus vaccine, inactivated Poncho Sheldon GUEST SERVICE TEAM LEADER.[employer] Work Phone: [facility] Work Phone: 01-22-2002 haemophilus influenz ae type b vaccine, HbOC conjugate Poncho Sheldon GUEST SERVICE TEAM LEADER.[employer] Work Phone: [facility] Work Phone: 2001 diphtheria, tetanus toxoids and acellular pertussis vaccine Poncho Sheldon GUEST SERVICE TEAM LEADER.[facility] Work Phone: [facility] Work Phone: 2001 hepatitis B vaccine, pediatric or pediatric/adolescent dosage Poncho Sheldon GUEST SERVICE TEAM LEADER.[facility] Work Phone: [facility] Work Phone: 2001 diphtheria, tetanus toxoids and acellular pertussis vaccine Poncho Sheldon GUEST SERVICE TEAM LEADER.[facility] Work Phone: [facility] Work Phone: 2001 haemophilus influenz ae type b vaccine, HbOC conjugate Poncho Sheldon GUEST SERVICE TEAM LEADER.[facility] Work Phone: [facility] Work Phone: 2001 poliovirus vaccine, inactivated Poncho Sheldon GUEST SERVICE TEAM LEADER.[facility] Work Phone: [facility] Work Phone: 2001 diphtheria, tetanus toxoids and acellular pertussis vaccine Poncho Sheldon GUEST SERVICE TEAM LEADER.[facility] Work Phone: [facility] Work Phone: 2001 haemophilus influenz ae type b vaccine, HbOC conjugate Poncho Sheldon GUEST SERVICE TEAM LEADER.[facility] Work Phone: [facility] Work Phone: 2001 poliovirus vaccine, inactivated Poncho Sheldon GUEST SERVICE TEAM LEADER.[facility] Work Phone: [facility] Work Phone: 2001 hepatitis B vaccine, pediatric or pediatric/adolescent dosage Poncho Sheldon GUEST SERVICE TEAM LEADER.[facility] Work Phone: [facility] Work Phone: Payers Date Payer Category Payer Self-pay [id number] 2022 Self-pay [id number] 2015 [employer] BLUE CARD PPO OOS [id number] 2015 Unknown [employer] BLUE CARD PPO OOS [id number] 2015-Present [phone] [id number] [place] [id number] PPO [id number] 2015 Unknown [employer] BLUE CARD PPO OOS [id number] 2015-Present [phone] [place] [id number] PPO [id number] 2015 Unknown [id number] 2001 Unknown [id number] 2001 Unknown [id number] .902 2001 Unknown [id number] .902 2001 Unknown [id number] .902 Unknown [id number] .462 Unknown [id number] .462 Unknown [id number] .462 Unknown [id number] .462 Unknown [id number] .462 Unknown [id number] 2.16.840.1.394159.3.579.2 .462 Unknown [id number] 2.16.840.1.097123.3.579.2 .462 Unknown [id number] .462 Unknown [id number] 2.16.840.1.515030.3.579.2 .462 Unknown [id number] 2.16.840.1.452884.3.579.2 .462 Unknown [id number] [id number] .462 Unknown [id number] .462 Social History Date Type Detail Facility Start: 10-19-2022 Tobacco smoking stat [facility] Never smoked tobacco [facility] Start: 01-17-2022 End: 03-04-2024 Alcohol intake Current non-drinker of alcohol (finding) [facility] Start: 2001 Sex Assigned At Not on file [facility] Start: 01-07-2022 End: 05-20-2022 Exposure to SARS-CoV-2 (event) Not sure [facility] Tobacco smoking stat [facility] Tobacco smoking consumption unknown [facility] Start: 10-19-2022 Tobacco use and exposure Smokeless tobacco non-user [facility] Work Phone: Start: 05-15-2023 End: 03-04-2024 History of Social function [facility] Start: 05-15-2023 End: 03-04-2024 Tobacco use panel [facility] Adult Depression Screening Assessment 0 [facility] Clinical Notes 01-17-2022 to 02-03-2025 Telephone Encounter - Maye Hernandez LPN - 02/03/2025 7:25 PM EDTTelephone Encounter - Maye Hernandez LPN - 02/03/2025 7:25 PM EDTRigNatali chaudhari APRN.PALMIRA - 02/02/2025 8:59 AM EDTAttachments Note Date & Type Note Facility 02-03-2025 Telephone encounter Note Patient notified.Maye Hernandez LPN [facility] 02-03-2025 Miscellaneous Notes Patient notified.Maye Hernandez LPN The urine culture has returned and has mixed microbes. Please follow up with PCP for repeat urine to ensure blood has resolved. Patient notified of results, verbalized understanding of instructions given. Ana Solano MA ----- Message from Lisa Banda APRN.[employer] sent at 02/03/2025 7:16 AM EDT ----- [...] APRN.CNP documented in this encounter [facility] 02-03-2025 Telephone encounter Note The urine culture has returned and has mixed microbes. Please follow up with PCP for repeat urine to ensure blood has resolved. [facility] Work Phone: 02-03-2025 Telephone encounter Note Patient notified of results, verbalized understanding of instructions given. Ana Solano MA [facility] 02-03-2025 Telephone encounter Note ----- Message from [...] culture is still processing. Lisa Banda APRN.CNP [facility] 02-03-2025 Telephone encounter Note ----- Message from Lisa Banda APRN.[employer] sent at 02/03/2025 7:16 AM EDT ----- Please advise patient she tested positive for yeast and BV. She was prescribed fluconazole at visit for yeast, she should take this as directed. I have sent a prescription to her pharmacy for Flagyl to treat the BV. Avoid alcohol while on this medication. The urine culture is still processing. Lisa Banda APRN.[employer] [facility] 02-02-2025 Note HNO ID: [id number] Author: NATALI ZEPEDA APRN.PALMIRA Service: ? Author Type: Nurse Practitioner Type: Progress Notes Filed: 02/02/2025 09:20 Note Text: [facility] Subjective Gloria Nettles is a 24 year old female. Patient presents with: Hematuria: x 2 days Hematuria Vaginal Soreness and Discharge: - Onset: 4 days ago. - Describes soreness in the vaginal area, particularly when wiping. just feels sore down there - Noticed a "pink" or slightly bloody appearance on toilet paper [...] plan 11/24/2020 placed on care plan by [facility] ED for excessive visits PAST SURGICAL [...] unspecified type (R31 (more content not included)... [facility] 02-02-2025 History of Present illness Narrative [facility] Subjective Gloria Nettles is a 24 year old female. Patient presents with: Hematuria: x 2 days Hematuria Vaginal Soreness and Discharge: - Onset: 4 days ago. - Describes soreness in the vaginal area, particularly when wiping. just feels sore down there - Noticed a "pink" or slightly bloody appearance on toilet paper [...] plan 11/24/2020 placed on care plan by [facility] ED for excessive visits PAST SURGICAL [...] results to guide treatment and Recording using ambient AI software for draft documentation of the visit was discussed with the patient/authorized artists' booking representative; all questions welcomed and answered. Patient/authorized artists' booking representative agreed to proceed MDM Procedures documented in this encounter [facility] 03-04-2024 Instructions Poncho Jaime APRN.CNP - 03/04/2024 9:53 AM EDT Schedule with Nichol-psychiatry Continue your current medications. We'll add the Zoloft for you to take in the evenings. documented in this encounter [facility] 03-04-2024 Note HNO ID: [id number] Author: PONCHO JAIME APRN.CNP Service: ? Author Type: Nurse Practitioner Type: Progress Notes Filed: 03/04/2024 18:30 Note Text: Chief Complaint Patient presents with: ER F/U: Abd pain, seeing gastro next month, anxiety HPI Gloria Nettles is a 23 year old female who presents here today for Above Complaints.. [facility] ER on 02/27 with abdominal pain and anxiety. Is seeing Dr. Adkins GI at [facility]. Stress/anxiety-work has been frustrating lately. Has [...] somewhat and this lasts a few hours. Hywzim-pcb-lhwrc't like to take this a lot because [...] plan 11/24/2020 placed on care plan by [facility] ED for excessive visits Previous Surgical [...] with plan to see Dr. Adkins with [facility] GI. - SERTRALINE 50 MG TABLET - CONSULT TO PSYCHIATRY 2. Abdominal cramping - ICD9: 789.00, ICD10: R10.9 Continue with plan to see Dr. Adkins with [facility] GI. - SERTRALINE 50 MG TABLET - CONSULT TO PSYCHIATRY 3. Nausea and vomiting, unspecified vomiting type - ICD9: 787.01, ICD10: R11.2 Continue with plan to see Dr. Adkins with [facility] GI. - SERTRALINE 50 MG TABLET - CONSULT TO PSYCHIATRY Poncho Jaime APRN.[facility] 03-04-2024 History of Present illness Narrative Chief Complaint Patient presents with: ER F/U: Abd pain, seeing gastro next month, anxiety HPI Gloria Nettles is a 23 year old female who presents here today for Above Complaints.. [facility] ER on 02/27 with abdominal pain and anxiety. Is seeing Dr. Adkins, GI at [facility]. Stress/anxiety-work has been frustrating lately. Has [...] somewhat and this lasts a few hours. Ykewaw-njm-netwt't like to take this a lot because [...] plan 11/24/2020 placed on care plan by [facility] ED for excessive visits Previous Surgical [...] with plan to see Dr. Adkins with [facility] GI. - SERTRALINE 50 MG TABLET - CONSULT TO PSYCHIATRY 2. Abdominal cramping - ICD9: 789.00, ICD10: R10.9 Continue with plan to see Dr. Adkins with [facility] GI. - SERTRALINE 50 MG TABLET - CONSULT TO PSYCHIATRY 3. Nausea and vomiting, unspecified vomiting type - ICD9: 787.01, ICD10: R11.2 Continue with plan to see Dr. Adkins with [facility] GI. - SERTRALINE 50 MG TABLET - CONSULT TO PSYCHIATRY Poncho Jaime APRN.[employer] documented in this encounter [facility] 10-22-2022 History of Present illness Narrative CC: [...] home. She is renting a home in [place]. 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 She is unsure what her future goals in life are- unsure if will go to school or find another job etc. Does have friend support. PAST MEDICAL HISTORY Diagnosis Date Intractable vomiting with nausea, unspecified vomiting type Marijuana user Noncompliance with treatment plan 11/24/2020 placed on care plan by [facility] ED for excessive visits PAST SURGICAL [...] diet of 1000 mg/day for under 50, 1950-7625 mg/day for 50+ 2. Anxiety - ICD9: [...] FREE BLD - THYROID PEROXIDASE ANTIBODY BLOOD Wiflred Egan DO To ER if develops chest pain, shortness of breath, or severe worsening of symptoms. Discussed risks, benefits, alternatives, and potential side effects of medications. Patient expressed understanding and agreed with the plan. Wilfred Egan DO [address] [place] [address] documented in this encounter [facility] 05-20-2022 Hospital Discharge instructions Shaun Bean MD - 05/20/2022 5:40 AM EDT You came to the Emergency Department today for anxiety. You were given Ativan with improvement in your symptoms as well as Compazine for nausea. The following attachments cannot be sent through Care Everywhere.Anxiety Disorders: General Info (French)documented in this encounter [facility] 05-20-2022 Emergency department Note Patient c/o anxiety and panic attacks. Patient states that panic attack is getting better but is not going away. Patient concerned that her anxiety is keeping friends awake. Patient denies SI/HI [facility] 05-20-2022 Emergency department Note Patient c/o anxiety and panic attacks. Patient states that panic attack is getting better but is not going away. Patient concerned that her anxiety is keeping friends awake. Patient denies SI/HI documented in this encounter [facility] 02-01-2022 History of Present illness Narrative Behavioral Health Social Work Assessment Patient was seen for an initial evaluation. All information is from patient report except when noted. This evaluation is NOT intended for forensic, disability, or child custody purposes. Informed consent was discussed and signed by the patient. -Pt was sent [employer] with consent for tx -Blink (air taxi)g viewed [facility] Assessment: Virtual No Show 9:10am Pt had not joined visit -[facility] attempted to contact Pt -no answer -left , if available to join visit please join visit, SW will remain on visit for additional 15 min, if unable please call to reschedule appt 9:50am -no response from Pt -[facility] (air taxi[facility], -included no show ltr Patient identified for [facility] from: PCP (Poncho Jaime CNP) Reason for referral: [facility] Assessment (failed mental health tx,depression/anxiety) [facility] encounter type: [place] Mobile Message Attempts to Outreach: 5 attempts Referral [...] Brenner documented in this encounter [facility] 01-17-2022 Miscellaneous Notes BEHAVIORAL HEALTH SOCIAL WORK CONSULT NOTE Service Date: January 17, 2022 Patient was identified by name and Patient: Gloria Greer [facility] [address] (home) [phone] (cell) PCP: Wilfred Egan, DO [address] [facility] [id number] Patient identified for [facility] from: PCP (Poncho Jaime CNP) Reason for referral: [facility] Assessment (failed mental health tx,depression/anxiety) [facility] encounter type: Telephone Encounter Assessment: [facility] received a consult from Poncho Jaime CNP, for assessment failed mental health tx, depression/anxiety [facility] reviewed Pt's chart/insurance [facility] contacted Pt -scheduled 02-01-22 at 9am virtual [...] Psychology - Internal Psychology-Internal referral type: (scheduled bh assessment for 02-01-22 at 9am virtual) Final Disposition: Care established with (scheduled assessment for 02-01-22 at 9am virtual) Patient Discharged?: Yes Patient reported that caregiver was able to meet their needs today?: Yes Internal Referrals : Yes -Patient advised of treatment options available at [facility]. Patient was informed that they will be moving on for further evaluation if seeking treatment within the [facility] system. Reason for External Referrals : N/A Intervention: Supportive Listening Scheduled Assessment Offered virtual visit Resources Provided: Further evaluation and assessment Virtual Visit Time Spent: 15 minutes BUDDY Brenner documented in this encounter [facility] 01-17-2022 Instructions Poncho Jaime APRN.CNP - 01/17/2022 8:54 AM EDT Start on Cymbalta. Take the Ativan (lorazepam) as needed for severe anxiety/depression. Take the hycosamine as needed for cramping. Take Zofran as needed for the nausea/vomiting. documented in this encounter [facility] 01-17-2022 History of Present illness Narrative Chief [...] not have heartburn. Has a job at [employer]. Has been off work the past 2 days because has not been feeling well. They are pretty understanding with her. Is embarrassing and frustrating. Multiple ER visits. Extensive GI workup. Past medical history, appointments, medications, allergies reviewed. Has stopped taking the Zoloft. Did IOP program at [facility]. Was then prescribed Remeron-felt poorly on this [...] plan 11/24/2020 placed on care plan by [facility] ED for excessive visits Previous Surgical [...] education. 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 Atrophic gastritis without mention of hemorrhage Lower abdominal pain Abdominal pain, other specified site [facility] Diagnosis No-show for appointment- Primary [facility] Diagnosis Anxiety- Primary Anxiety state, unspecified [facility] Well adult exam- Primary Routine general medical examination at a health care facility Anxiety Anxiety state, unspecified Thyromegaly Goiter, unspecified [facility] Diagnosis Anxiety- Primary Anxiety state, unspecified Abdominal cramping Abdominal pain, unspecified site Nausea and vomiting, unspecified vomiting type [facility] Hematuria, unspecified type- Primary Vaginal discomfort Unspecified symptom associated with female genital organs Encounter for screening for bacterial sexually transmitted disease documented in this encounter [facility] Summary Purpose Family History No Family History Records FoundNo Family History Records FoundNo Family History Records FoundNo Family History Records FoundNo Family History Records Found Advance Directives No Advanced Directives Records FoundDocuments on File Type Date Recorded 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 Advance Directive(s) 10/20/2020 10:47 AM Reason for Referral Specialty Diagnoses / Procedures Referred By Contac t Referred To Contact Procedures ECG Savage Scott MD [address] [place] [address] Referral ID Status Reason Start Date Expiration Date V isits Requested Visits Authorized [id number] New Request 05/20/2022 06/14/2023 1 1 Specialty Diagnoses / Procedures Referred By Contac t Referred To Contact Diagnoses Anxiety Abdominal cramping Nausea and vomiting, unspecified vomiting type Procedures CONSULT TO PSYCHIATRY OFFICE/OUTPATIENT NEW HIGH MDM 60 MINUTES Poncho Jaime, VICTORINA.[employer] [address] [place] [address] Referral ID Status Reason Start Date Expiration Date Visits Requested Visits Authorized [id number] Pending Review PCP Requested Referral 03/04/2024 03/04/2025 1 1 Additional Source Comments INFORMATION SOURCE (unrecogn ized section and content) DATE CREATED AUTHOR 10/27/2020 [facility] DATE CREATED AUTHOR AUTHOR'S ORGANIZ ATION 06/14/2022 [facility] DATE CREATED AUTHOR AUTHOR'S ORGANIZ ATION 05/23/2023 [facility] nt DATE CREATED AUTHOR AUTHOR'S ORGANIZ ATION 02/04/2025 [facility] DATE CREATED AUTHOR AUTHOR'S ORGANIZ ATION 06/20/2025 [facility] Source Comments (unrecognize d section and content) In the event this informatio n is protected by the Federal Confidentiality of Alcohol and Drug Abuse Patient Records regulations: The Federal rules restrict any use of the information to criminally investigate or prosecute any alcohol or drug abuse patient.[facility] CenterIn the event this information is protected by the Federal Confidentiality of Alcohol and Drug Abuse Patient Records regulations: The Federal rules restrict any use of the information to criminally investigate or prosecute any alcohol or drug abuse patient.[facility] CenterIn the event this information is protected by the Federal Confidentiality of Alcohol and Drug Abuse Patient Records regulations: The Federal rules restrict any use of the information to criminally investigate or prosecute any alcohol or drug abuse patient.[facility] CenterIn the event this information is protected by the Federal Confidentiality of Alcohol and Drug Abuse Patient Records regulations: The Federal rules restrict any use of the information to criminally investigate or prosecute any alcohol or drug abuse patient.[facility] CenterIn the event this information is protected by the Federal Confidentiality of Alcohol and Drug Abuse Patient Records regulations: The Federal rules restrict any use of the information to criminally investigate or prosecute any alcohol or drug abuse patient.[facility] CenterIn the event this information is protected by the Federal Confidentiality of Alcohol and Drug Abuse Patient Records regulations: The Federal rules restrict any use of the information to criminally investigate or prosecute any alcohol or drug abuse patient.[facility] CenterIn the event this information is protected by the Federal Confidentiality of Alcohol and Drug Abuse Patient Records regulations: The Federal rules restrict any use of the information to criminally investigate or prosecute any alcohol or drug abuse patient.[facility] CenterIn the event this information is protected by the Federal Confidentiality of Alcohol and Drug Abuse Patient Records regulations: The Federal rules restrict any use of the information to criminally investigate or prosecute any alcohol or drug abuse patient.[facility] Reason for Visit (unrecogniz ed section and content) Reason Comments Anxiety Depression Abdominal Pain Vomiting Reason Comments Consult Initial [facility] Pt Outr each Reason Comments Consult [facility] Assessment Virt ual Specialty Diagnoses / Procedures Referred By Claudio gonzales Referred To Contact Psychiatry / ADULT PSYCHOLOGY Diagnoses 1st eval Procedures VIDEO PSAMAURI/PSYL Poncho Delgado APRN.[facility] [address] [place] [address] Bowen Leroy LISW [address] [place] [address] Referral ID Status Reason Start Date Expiration Date V isits Requested Visits Authorized [id number] Authorized 08/19/2021 08/18/2022 99 99 Reason Comments Anxiety Reason Comments Hospital F/U Reason Comments ER F/U Abd pain, seeing gas tro next month, anxiety Reason Comments Hematuria x 2 days Care Teams (unrecognized sec tion and content) Socially Responsible Investment Adviser Relationship Specialty Start Date End Date Wilfred Egan DO [address] [place] [address] PCP - General Family Practice 09/05/15 Socially Responsible Investment Adviser Relationship Specialty Start Date End Date Wilfred Egan DO [address] [place] [address] PCP - General Family Practice 09/05/15 Socially Responsible Investment Adviser Relationship Specialty Start Date End Date Wilfred Egan DO [address] [facility] [place] [address] PCP - General Family Practice 09/05/15 Socially Responsible Investment Adviser Relationship Specialty Start Date End Date Wilfred Egan DO [address] [facility] [place] [address] PCP - General Family Medicine 09/05/15 Socially Responsible Investment Adviser Relationship Specialty Start Date End Date Wilfred Egan DO [address] [place] [address] PCP - General Family Medicine 09/05/15 Socially Responsible Investment Adviser Relationship Specialty Start Date End Date Wilfred Egan DO [address] [facility] [place] [address] PCP - General Family Medicine 09/05/15 Poncho Jaime APRN.[facility] [address] [place] [address] [facility] 07/26/24 Olivia Sin, VICTORINA.[facility] [address] [place], [place] [address] [facility] 02/01/25 Socially Responsible Investment Adviser Relationship Specialty Start Date End Date Wilfred Egan DO [address] [place], [place] [address] PCP - General Family Medicine 09/05/15 Poncho Jaime APRN.[facility] [address] [place] [address] [facility] 07/26/24 Olivia Sin, GUEST SERVICE TEAM LEADER.[facility] [address] [place], [place] [id number] [facility] 02/01/25 Scheduled Active and Recently Administ ered Medications (unrecognized section and content) Medication Order 05/18/2022 05/19/2022 05/20/2022 LORazepam (ATIVAN) tablet 2 mg (COMPLETED) 2 mg, Oral, ONCE, 1 dose, On 05/20/22 at 0515 0446 (Given - Provid er: Db Cooper RN) prochlorperazine (COMPAZINE) tablet 5 mg (COMPLETED) 5 mg, Oral, ONCE, 1 dose, On 05/20/22 at 0545 0530 (Given - Provid er: Db Cooper, JENIFER) [...] BE BASED ON THE PRIMARY CLINICAL RECORDS. [facility] [employer] [facility]. provides no warranty or guarantee of the accuracy or completeness of information in this document.
[2025-06-29] MEDS: DiphenhydrAMINE 25 MG, ChlorproMAZINE 50 MG in 0.9% Normal Saline (250mL Bag) 247.5 ML 250 MG IV (03:36)
--- NOTE | 2025-06-29 03:38 | EX.ED.DYSGE1 ---
HPI History of Present Illness Chief Complaint: Nausea/Vomiting Informant: patient Narrative Narrative: Patient is a who reports she is approximately 13 weeks . She states that despite various medications prescribed at home that she continues to experience nausea and vomiting in . She states that she threw up once or twice yesterday and then today despite taking medications that were prescribed for her had 4-5 bouts of vomiting. She states initially it was what ever food was in her stomach and now it has just become spit and bile and dry heaves. She denies any vaginal bleeding or discharge. She states she has not used marijuana in approximately 2 weeks. However as she is concerned about her child and her potential decreased nutrients because of her vomiting she presents for evaluation [facility] Medical History Marijuana use Panic disorder Major depressive disorder, single episode, severe without psychosis Generalized anxiety disorder Home Medications Medication Instructions Recorded Last Taken Type hydroxyzine pamoate 25 mg capsule 25 - 50 mg (1 - 2 x 25 mg) PO TID 05/13/25 Unknown Rx PRN PRN Anxiety #30 CAPSULES ondansetron 4 mg disintegrating 4 mg PO Q8H PRN PRN Nausea #20 tabs 05/13/25 06/28/25 19:00 Rx tablet dicyclomine 20 mg tablet 20 mg PO 4X/DAY PRN Abdominal 06/09/25 Unknown Rx bloating/spasm 7 days #28 tabs prochlorperazine maleate 10 mg 10 mg PO TID PRN nausea and 06/09/25 Unknown Rx tablet (Compazine) vomiting 7 days #21 tabs Allergy/AdvReac Type Severity Reaction Status Date / Time No Known Allergies Allergy Verified 06/29/25 02:29 Family History Mother Thyroid disorder Father Asthma COPD (chronic obstructive pulmonary disease) Grandmother Cardiac pacemaker Surgical History Hx of colonoscopy History of esophagogastroduodenoscopy (EGD) Social History adopted: No household members: other details: Mom & step dad number of children: 0 current occupational status: employed 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 current occupational exposures/hazards: No pets and animals: Yes (Not managing litterbox ) pets and animals: cat(s) history of recent travel: Yes (Mar 2025) out of state: Yes out of country: No sexually active: Yes Smoking Status: Current some day smoker tobacco type: e-cigarettes second hand exposure: No quit status: quit date established alcohol intake: current alcohol intake frequency: a few times a month details: Not while substance use type: former substance user Date of last use: Apr 20, 2025 well-balanced diet: about half the time caffeine: No eating out: 1-3 times/week during the past year weight has: remained stable what type of physical activity do you participate in: walking frequency: 1-2 times per week duration: < 15 minutes/day dustin/yarsani: None seatbelt use: always do you feel safe at home: Yes additional social history: BF: [employer] 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 @ [employer] ROS ROS ED Constitutional Constitutional ED: Denies chills or fever(s) Eyes Eyes: Denies change in vision ENT ENT ED: Denies sore throat Cardiovascular Cardiovascular: Denies chest pain Respiratory/Chest Respiratory/Chest: Denies cough or dyspnea Gastrointestinal Gastrointestinal: Reports nausea and vomiting; Denies abdominal pain or diarrhea Genitourinary Genitourinary ED: Reports other Details: Negative vaginal bleeding and discharge ; Denies dysuria or hematuria Musculoskeletal Musculoskeletal: Denies myalgias Integumentary Denies rash Neurologic Neurologic: Denies headache(s) Psychiatric Psychiatric: Reports anxiety Hematologic/Lymphatic Hematologic/Lymphatic: Denies easy bleeding or easy bruising EXAM Physical Exam Const Vital Signs: 06/29/25 02:30 06/29/25 04:00 06/29/25 04:56 Temperature 98.2 F 98 F Temperature Source Oral Pulse Rate 92 89 70 Respiratory Rate 22 H 18 18 Blood Pressure 135/65 H 118/53 L 105/50 L Blood Pressure Mean 88 74 68 Pulse Ox 100 100 100 Oxygen Delivery Method Room Air Room Air Positive well nourished and well developed General Appearance ED: well developed; Negative for pallor HEENT HEENT Narrative: Normocephalic atraumatic No tongue or lip swelling no oral lesions no airway edema or compromise; no secondary findings in the posterior pharynx to suggest infection Mucous membranes are mildly dry intact Eyes PERRL and EOMs intact bilaterally General Eye ED: Negative for scleral icterus Neck supple Resp normal respiratory effort and clear to auscultation bilaterally Cardio regular rate and regular rhythm Rate: other Other Details: Heart is regular rate and rhythm without murmurs rubs or gallops Radial and carotid pulses are equal and symmetric GI normal to inspection, nondistended, normoactive bowel sounds, non-tender, non-distended and no masses GI Narrative: No voluntary guarding or rigidity or pulsatile mass Fundus appears to be just outside of the pelvis consistent with reported gestational age Auscultation: normoactive bowel sounds Palpation: soft Extremity normal to inspection Extremity Narrative: No asymmetric edema no pitting edema negative Homans' sign bilaterally Neuro oriented x3, CN's II-XII intact bilaterally and no sensory deficits noted Sensorium / Orientation: alert Motor Exam: strength 5/5 throughout Psych Mood & Affect: anxious Skin no rashes or lesions noted, no wounds and skin turgor normal General Skin Exam: Negative for jaundice or pallor MDM MDM MDM Narrative Medical decision making narrative: Patient arrived to the ER overall stable vitals and a soft nonsurgical abdomen. Chart review reveals that she has been in the ER multiple times for the symptoms. She has been prescribed multiple medications for them. She denies any recent use of marijuana which could have stimulated her nausea and vomiting. Overall her amount of vomiting is minimal at 4-5 events and there is no report of blood or discoloration to it to suggest a Sangeeta-Gibson tear or Boerhaave syndrome. Also her abdomen is soft and nonsurgical so have low concern for ileus or obstruction or appendicitis. She denies vaginal bleeding or discharge going against a threatened or incomplete miscarriage. I have low concern that she has developed acute kidney injury or has clinically significant electrolyte changes based on her reported amount of vomiting as well. Therefore I feel no need for imaging or laboratory testing. The patient will be given IV fluid as well as Thorazine and Benadryl to help with her cyclic vomiting/hyperemesis gravidarum. I did perform a bedside ultrasound of her abdomen and documented a fetus within the uterus with good activity and heart rate of 140 bpm. Therefore this time as vitals are stable ultrasound confirms a viable with normal heart rate and patient symptoms have been improved with the provided medication there is no need for further workup or BIOMETRICS SPECIALIST consultation and she is otherwise safe for discharge History & Record Review Discussion w/independent historian: Patient Additional record(s) reviewed:: Prior ED visit and Prior labs Discharge Plan Triage Chief Complaint: Nausea/Vomiting ED Provider: Heladio Ahumada Dx/Rx/DC Orders Clinical Impression: Hyperemesis gravidarum, Instructions: ED Cyclic Vomiting Syndrome, ED Hyperemesis Gravidarum Prescriptions: No Action prochlorperazine maleate [Compazine] 10 mg tablet 10 mg PO TID PRN (Reason: nausea and vomiting) 7 Days Qty: 21 0RF dicyclomine 20 mg tablet 20 mg PO 4X/DAY PRN (Reason: Abdominal bloating/spasm) 7 Days Qty: 28 0RF ondansetron 4 mg tablet,disintegrating 4 mg PO Q8H PRN PRN (Reason: Nausea) Qty: 20 0RF hydroxyzine pamoate 25 mg capsule 25 - 50 mg PO TID PRN PRN (Reason: Anxiety) Qty: 30 0RF Primary Care Provider: Wilfred Nova Referrals: Wilfred Nova DO [Primary Care Provider, Medical] Activity Restrictions/Additional Instructions: Please continue the previously prescribed medications to help with bouts of vomiting. Keep yourself well-hydrated and follow-up with your BIOMETRICS SPECIALIST for repeat evaluation. Return to the ER should you have any further concerns Print Language: Cymraes Disposition Disposition: Home, Self Care Discharge Date/Time: 06/29/25 04:57
[2025-06-29 04:00] VITALS: BP 118/53; PULSE 89; RESP 18; O2SAT 100
[2025-06-29 04:56] VITALS: BP 105/50; PULSE 70; RESP 18; TEMP 36.6; O2SAT 100
== END 2025-06-29 04:57 | disposition home or self-care (01) ==
PROVIDERS: Emergency Provider Emergency Medicine; PCP Student in an Organized Health Care Education/Training Program; Visit Provider Emergency Medicine
DX: O21.0 Mild hyperemesis gravidarum (principal); O99.341 Other mental disorders complicating pregnancy, first trimester; F41.1 Generalized anxiety disorder; O99.331 Smoking (tobacco) complicating pregnancy, first trimester; F17.290 Nicotine dependence, other tobacco product, uncomplicated; Z3A.13 13 weeks gestation of pregnancy
CPT/HCPCS: 96361; 96365; 99283; A4216

== ENCOUNTER → 2025-07-12 | Outpatient (CLI) | payer BC, SELFPAY | END | disposition home or self-care (01) | LOC: LABSPEC 12:03 | PROVIDERS: PCP Student in an Organized Health Care Education/Training Program; Visit Provider Nurse Practitioner Women's Health | DX: O09.90 Supervision of high risk pregnancy, unspecified, unspecified trimester (principal); O23.40 Unspecified infection of urinary tract in pregnancy, unspecified trimester; Z3A.00 Weeks of gestation of pregnancy not specified | CPT/HCPCS: 87086; 87088 ==